=== PATIENT | female | born 1960 | race African-American/Black ===

== ENCOUNTER 2017-01-23 19:16 | Emergency (ER) | payer OTHER ==
[2017-01-23 19:32] VITALS: TEMP 98.3; BMI 38.1
[2017-01-23] MEDS ORDERED: SODIUM CHLORIDE 1,000 ML IV STA (20:03)
--- NOTE | 2017-01-23 20:07 | PDOC ---
History of Present Illness - General Chief Complaint: Chest Pain Stated Complaint: CHEST PAIN (PCP SENT) Time Seen by Provider: 01/23/17 19:40 History Source: Patient Exam Limitations: No Limitations - History of Present Illness Initial Comments: 01/23/17 20:04 56yo female patient w/ PmHx: HTN, IDDM, HLD, Stress Incontinence presents to ED c/o CP, irregular heart beat. Patient states she went to Dr. Sharp office for routine exam when she was told she had an irregular heart beat and to go to ER for evaluation. Patient current denies CP, Abd pain, n/v/d, fever, cough, congestion, diff breathing, SOB, or any other complaints at this time. LNMP: Menopause. Presenting Symptoms: Chest Pain, Other (Irregular heart beat.) Timing/Duration: reports: intermittent Severity/Quality: reports: mild Location: denies: substernal, central, epigastric, shoulder, back, abdomen, other Chest Pain Radiation: denies: no radiation, jaw, arms, neck, shoulders, back, sternal notch, epigastric, other Activities at Onset: reports: no specific activity Past History - Travel Traveled outside of the country in the last 30 days: No Close contact w/someone who was outside of country & ill: No - Past Medical History Allergies/Adverse Reactions: Allergies Allergy/AdvReac Type Severity Reaction Status Date / Time duloxetine HCl AdvReac Mild dizzy Verified 01/23/17 19:32 [From Cymbalta] gabapentin AdvReac Mild edema Verified 01/23/17 19:32 shellfish derived AdvReac Mild Swelling Verified 01/23/17 19:32 Home Medications: Ambulatory Orders Albuterol Sulfate Inhaler - [Ventolin HFA Inhaler -] 1 - 2 inh IH Q4H PRN #0 inh 04/02/14 Atorvastatin Ca [Lipitor -] 10 mg PO HS 03/03/15 Calcium Carbonate/Vitamin D3 [Calcium + Vitamin D Tablet] 1 each PO DAILY Cyclobenzaprine HCl [Flexeril -] 10 mg PO TID PRN 03/03/15 Metformin HCl 500 mg PO DAILY 03/03/15 Insulin Lispro [Humalog] 10 unit SQ AC 09/01/15 Diclofenac Sodium [Voltaren] 100 gm TP TID PRN 11/01/15 Lisinopril [Prinivil] 20 mg PO DAILY 08/24/16 Mirtazapine [Remeron -] 7.5 mg PO HS 08/24/16 Oxybutynin Chloride [Oxybutynin Chloride ER] 10 mg PO DAILY 08/24/16 Insulin Glargine,Hum.rec.anlog [Basaglar Kwikpen U-100] 45 unit SQ HS 11/23/16 Oxycodone HCl/Acetaminophen [Percocet 10-325 mg Tablet] 1 each PO TID PRN #70 tablet MDD 3 01/22/17 Anemia: No Asthma: Yes Cancer: No Cardiac Disorders: No CVA: No COPD: No CHF: No Dementia: No Diabetes: Yes (IDDM with neuropathy) GI Disorders: No Disorders: No HTN: Yes Hypercholesterolemia: Yes Liver Disease: No Seizures: No Thyroid Disease: No - Surgical History Abdominal Surgery: (ECTOPIC) Appendectomy: No Cardiac Surgery: No Cholecystectomy: No Lung Surgery: No Neurologic Surgery: No Orthopedic Surgery: Yes (fx r knee, l elbow sx, orif l wrist, orif r ankle) - Immunization History TDAP Vaccination: No Immunization Up to Date: No - Suicide/Smoking/Psychosocial Hx Smoking Status: No Smoking History: Never smoked Have you smoked in the past 12 months: No Number of Cigarettes Smoked Daily: 0 If you are a former smoker, when did you quit?: 2006 Hx Alcohol Use: No Drug/Substance Use Hx: No Substance Use Type: None Hx Substance Use Treatment: No Cardiac Specific PMH - Complaint Specific PMHX Pacemaker: No Review of Systems - Review of Systems Able to Perform ROS?: Yes Is the patient limited Turkish proficient: No Constitutional: No: Chills, Fever Respiratory: No: Cough, Shortness of Breath, Wheezing Cardiac (ROS): Yes: Irregular Heart Rate. No: Chest Pain, Lightheadedness, Palpitations, Syncope, Chest Tightness ABD/GI: No: Diarrhea, Nausea, Poor Appetite, Poor Fluid Intake, Vomiting, Abdominal cramping : No: Dysuria Musculoskeletal: No: Back Pain Integumentary: No: Erythema, Rash, Sweating Neurological: No: Headache, Seizure, Ataxia, Dizziness All Other Systems: Reviewed and Negative *Physical Exam - Vital Signs Last Vital Signs Temp Pulse Resp BP Pulse Ox 98.3 F 48 L 16 138/74 100 01/23/17 19:30 01/24/17 00:13 01/24/17 00:13 01/24/17 00:13 01/24/17 00:13 - Physical Exam General Appearance: Yes: Nourished, Appropriately Dressed. No: Apparent Distress, Mild Distress, Moderate Distress, Severe Distress HEENT: positive: EOMI, SAVANNAH, Normal ENT Inspection, Normal Voice, Symmetrical, TMs Normal, Pharynx Normal. negative: Pharyngeal Erythema, Tonsillar Exudate, Tonsillar Erythema, Nasal Congestion, Rhinorrhea, TM Bulging, TM Dull, TM Erythema Neck: positive: Trachea midline, Normal Thyroid, Supple. negative: Rigid, Stridor, Lymphadenopathy (R), Lymphadenopathy (L) Respiratory/Chest: positive: Lungs Clear, Normal Breath Sounds. negative: Chest Tender, Respiratory Distress, Accessory Muscle Use, Labored Respiration, Rapid RR Cardiovascular: positive: Bradycardia Gastrointestinal/Abdominal: positive: Normal Bowel Sounds, Soft. negative: Distended, Guarding, Rebound, Tenderness Musculoskeletal: positive: Normal Inspection. negative: CVA Tenderness Extremity: positive: Normal Capillary Refill, Normal Inspection, Normal Range of Motion. negative: Pedal Edema, Swelling, Calf Tenderness, Erythema, Inflammation Integumentary: positive: Normal Color, Dry, Warm Neurologic: positive: salary and wage administrator II-XII NML intact, Fully Oriented, Alert, Normal Mood/ Affect, Normal Response, Motor Strength 5/5 Heart Score/ECG Review - ECG Impressions Normal ECG: Yes Non-specific ST Elevation: No Ischemic Changes: No Bradycardia: Yes Torsades thalia Pointes: No WPW: No ED Treatment Course - LABORATORY CBC & Chemistry Diagram: 01/23/17 20:22 01/23/17 20:22 - ADDITIONAL ORDERS Additional order review: Laboratory Results 01/23/17 01/23/17 01/23/17 23:20 20:51 20:22 Sodium 145 Potassium 4.0 Chloride 110 H Carbon Dioxide 27 Anion Gap 8 BUN 13 Creatinine 0.9 Creat Clearance w eGFR > 60 Random Glucose 132 H D Calcium 9.3 Magnesium 2.1 Total Bilirubin 0.3 D AST 20 D ALT 25 Alkaline Phosphatase 72 Creatine Kinase 262 H Creatine Kinase Index 1.1 CK-MB (CK-2) 3.129 Troponin I < 0.02 Total Protein 6.8 Albumin 3.4 TSH 1.64 D Serum , Qual Negative Urine Color Ltyellow Urine Appearance Slcloudy Urine pH 5.0 Urine Protein Negative Urine Glucose (UA) Negative Urine Ketones Negative Urine Blood Negative Urine Nitrite Negative Urine Bilirubin Negative Urine Urobilinogen Negative Urine RBC 3/hpf Urine WBC 4/hpf Ur Epithelial Cells Moderate Urine HCG, Qual Cancelled 01/23/17 20:22 RBC 4.10 MCV 90.1 MCHC 32.7 RDW 14.9 MPV 9.6 Neutrophils % 55.2 Lymphocytes % 33.7 Monocytes % 7.2 Eosinophils % 3.0 Basophils % 0.9 - RADIOLOGY Radiology Studies Ordered: Category Date Time Status CHEST PA & LAT [RAD] Stat Radiology 01/23/17 20:03 Completed - Medications Given in the ED: ED Medications Discontinued Medications Generic Name Dose Route Start Last Admin Trade Name Freq PRN Reason Stop Dose Admin Sodium Chloride 1,000 mls @ 1,000 mls/hr 01/23/17 20:03 01/23/17 20:22 Normal Saline - IV 01/23/17 21:02 1,000 mls/hr ASDIR STA Administration Penicillin G Benzathine 1,200,000 unit 01/23/17 23:59 01/24/17 00:13 Bicillin L-A - IM 01/24/17 00:00 1,200,000 unit ONCE ONE Administration Medical Decision Making - Medical Decision Making 01/23/17 22:[address] Sharp, result of labs and radiology testing discussed. Patient states she wanted to go home and will follow up with her Art Manager tomorrow morning. Patient is stable, she denies CP, SOB, Diff breathing, or any other complaints at this time. 01/23/17 22:[address] Hernandez who stated patient does not need to be admitted. Patient needs outpatient holter monitor. *DC/Admit/Observation/Transfer Diagnosis at time of Disposition: Bronchitis, Atypical chest pain - Discharge Dispostion Disposition: HOME Condition at time of disposition: Stable Admit: No - Referrals Referrals: Faisal Mcqueen MD [Primary Care Provider] - - Patient Instructions Printed Discharge Instructions: DI for Atypical Chest Pain Additional Instructions: Follow up with your cardiology office tomorrow to schedule Holter Monitor application. Return if symptoms worsen or any concerns for further evaluation. Drink plenty fluids. If symptoms worsen, return for further evaluation. Print Language: TUVALUAN
[2017-01-23 20:25] LABS: BASOPHIL 0.9 % (0-2.0); MCH 29.5 pg (25.7-33.7); MCHC 32.7 g/dl (32.0-36.0); MEAN CELL VOLUME 90.1 fl (80-96); MEAN PLT VOLUME 9.6 fl (7.5-11.1); NEUTROPHILS 55.2 % (42.8-82.8); PLATELET COUNT 159 K/MM3 (134-434); RDW 14.9 % (11.6-15.6); WHITE BLOOD COUNT 5.1 K/mm3 (4.0-10.0)
[2017-01-23 21:01] LABS: ALBUMIN 3.4 g/dl (3.4-5.0); ANION GAP 8 (8-16); BILIRUBIN,TOTAL 0.3 mg/dL (0.2-1.0); CALCIUM 9.3 mg/dL (8.5-10.1); CO2 27 mmol/L (21-32); CREATININE 0.9 mg/dL (0.55-1.02); GLUCOSE,RANDOM 132 mg/dL (74-106); MAGNESIUM 2.1 mg/dL (1.8-2.4); SGOT/AST 20 U/L (15-37); SGPT/ALT 25 U/L (12-78); TOT PROT 6.8 g/dl (6.4-8.2)
[2017-01-23 21:10] LABS: ALK PHOS 72 U/L (45-117); CPK 262 IU/L (26-192); THYROID STIMULATING HORMONE 1.64 uIU/ml (0.358-3.74); TROPONIN I < 0.02 ng/ml (0.00-0.05)
--- NOTE | 2017-01-23 23:13 | PDOC ---
*Physical Exam - Vital Signs Last Vital Signs Temp Pulse Resp BP Pulse Ox 98.3 F 52 L 18 158/85 99 01/23/17 19:30 01/23/17 19:30 01/23/17 19:30 01/23/17 19:30 01/23/17 19:30 - Physical Exam Comments: 01/23/17 23:13 The patient was examined by [CORINNE Regalado] under my direct supervision. I personally evaluated the patient. I concur with the above findings and the plan of care. ED Treatment Course - LABORATORY CBC & Chemistry Diagram: 01/23/17 20:22 01/23/17 20:22 - ADDITIONAL ORDERS Additional order review: Laboratory Results 01/23/17 01/23/17 20:51 20:22 Sodium 145 Potassium 4.0 Chloride 110 H Carbon Dioxide 27 Anion Gap 8 BUN 13 Creatinine 0.9 Creat Clearance w eGFR > 60 Random Glucose 132 H D Calcium 9.3 Magnesium 2.1 Total Bilirubin 0.3 D AST 20 D ALT 25 Alkaline Phosphatase 72 Creatine Kinase 262 H Creatine Kinase Index 1.1 CK-MB (CK-2) 3.129 Troponin I < 0.02 Total Protein 6.8 Albumin 3.4 TSH 1.64 D Serum , Qual Negative 01/23/17 20:22 RBC 4.10 MCV 90.1 MCHC 32.7 RDW 14.9 MPV 9.6 Neutrophils % 55.2 Lymphocytes % 33.7 Monocytes % 7.2 Eosinophils % 3.0 Basophils % 0.9 - Medications Given in the ED: ED Medications Discontinued Medications Generic Name Dose Route Start Last Admin Trade Name Freq PRN Reason Stop Dose Admin Sodium Chloride 1,000 mls @ 1,000 mls/hr 01/23/17 20:03 01/23/17 20:22 Normal Saline - IV 01/23/17 21:02 1,000 mls/hr ASDIR STA Administration *DC/Admit/Observation/Transfer - Referrals Referrals: Faisal Mcqueen MD [Primary Care Provider] - - Patient Instructions - Post Discharge Activity
[2017-01-23 23:31] LABS: URINE APPEARANCE SLCLOUDY; URINE BILIRUBIN NEGATIVE (NEGATIVE); URINE BLOOD NEGATIVE (NEGATIVE); URINE COLOR LTYELLOW; URINE GLUCOSE (UA) NEGATIVE (NEGATIVE); URINE KETONE NEGATIVE (NEGATIVE); URINE NITRITE NEGATIVE (NEGATIVE); URINE PROTEIN NEGATIVE (NEGATIVE); URINE UROBILINOGEN NEGATIVE mg/dL (0.2-1.0)
[2017-01-23 23:35] LABS: URINE LEUK ESTERASE 1+ (NEGATIVE)
[2017-01-23 23:36] LABS: URINE RBC 3/HPF /hpf (0-3); URINE WBC 4/HPF /hpf (3-5)
[2017-01-23] MEDS ORDERED: PENICILLIN G BENZATHINE 1,200,000 UNIT/2 ML PFS IM ONE (23:59)
[2017-01-24 00:14] VITALS: BP 138/74; PULSE 48
--- NOTE | 2017-01-24 10:44 | EKG ---
Test Reason : Blood Pressure : / mmHG Vent. Rate : 051 BPM Atrial Rate : 051 BPM P-R Int : 178 ms QRS Dur : 086 ms QT Int : 438 ms P-R-T Axes : 026 -12 000 degrees QTc Int : 403 ms SINUS BRADYCARDIA MODERATE VOLTAGE CRITERIA FOR LVH, MAY BE NORMAL VARIANT BORDERLINE ECG WHEN COMPARED WITH ECG OF 15-DEC-2014 23:03, NONSPECIFIC T WAVE ABNORMALITY NOW EVIDENT IN ANTERIOR LEADS Confirmed by RADHA ROTHMAN, RENITA ([id number]) on 01/24/2017 10:44:18 AM Referred By: Confirmed By:RENITA GARCIA MD
== END 2017-01-24 00:38 | disposition home or self-care (01) ==
LOC: JER 19:16
PROC: 3E0337Z Introduction of Electrolytic and Water Balance Substance into Peripheral Vein, Percutaneous Approach (ICD-10-PCS; principal; 2017-01-23)
PROC: 3E02329 Introduction of Other Anti-infective into Muscle, Percutaneous Approach (ICD-10-PCS; 2017-01-23)
DX: J40 Bronchitis, not specified as acute or chronic (principal); R07.89 Other chest pain; I10 Essential (primary) hypertension; E78.00 Pure hypercholesterolemia, unspecified; E11.42 Type 2 diabetes mellitus with diabetic polyneuropathy; Z79.4 Long term (current) use of insulin; Z79.84 Long term (current) use of oral hypoglycemic drugs
CPT/HCPCS: 36415; 71020-TC; 80053; 81003; 81015; 82553; 83735; 84443; 84484; 84703; 85025; 93005; 93010; 99284-25

== ENCOUNTER 2017-06-25 19:22 | Inpatient (IN) | payer OTHER ==
--- NOTE | 2017-06-25 19:31 | PDOC ---
Rapid Medical Evaluation Time Seen by Provider: 06/25/17 19:24 Medical Evaluation: Allergies Allergy/AdvReac Type Severity Reaction Status Date / Time duloxetine HCl AdvReac Mild dizzy Verified 01/23/17 19:32 [From Cymbalta] gabapentin AdvReac Mild edema Verified 01/23/17 19:32 shellfish derived AdvReac Mild Swelling Verified 01/23/17 19:32 06/25/17 19:24 I have performed a brief in-person evaluation of this patient. The patient presents with a chief complaint of: saw dr hough today for pneumonia , leg swelling, US results + for DVTs, hx of PEs, s/p IVC, taken off Coumadin last year, denies SOB/CP Pertinent physical exam findings: lungs ctab I have ordered the following: labs, ekg The patient will proceed to the ED for further evaluation. Discharge Disposition - Diagnosis DVT (deep venous thrombosis) - Referrals - Patient Instructions - Post Discharge Activity
--- NOTE | 2017-06-25 19:39 | PDOC ---
History of Present Illness - General Exam Limitations: No Limitations - History of Present Illness Initial Comments: 06/25/17 20:02 The patient is a 56 year old female, with a significant past medical history of hypertension, diabetes mellitus, hypercholesterolemia, who presents to the emergency department for evaluation of DVT to the right leg found on ultrasound by her post hole digger Dr. Romeo. The patient states she has noticed her right leg has been appearing more swollen than the left leg and reports she has a history of DVT's in the past. The patient also states she was recently treated for pneumonia and had some mild shortness of breath, however, is not having any now. The patient reports she used to take Coumadin but was taken off approx. one year ago. She denies recent fevers, chills, headache or dizziness. She denies recent nausea, vomit, diarrhea or constipation. She denies recent dysuria, frequency, urgency or hematuria. She denies recent chest pain or shortness of breath. Allergies: duloxteine HCL, gabapentin, shellfish derived Primary Care Physician: Dr. Faisal Mcqueen Clockmaker: Dr. Romeo <Chucho Laboy - Last Filed: 06/25/17 21:59> - General History Source: Patient <Myles Chapman - Last Filed: 06/26/17 19:17> - General Chief Complaint: Revisit,Radiology Variance Stated Complaint: PCP SENT Time Seen by Provider: 06/25/17 19:24 Past History <Chucho Laboy - Last Filed: 06/25/17 21:59> - Past Medical History Anemia: No Asthma: Yes Cancer: No Cardiac Disorders: No CVA: No COPD: No CHF: No Dementia: No Diabetes: Yes (IDDM with neuropathy) GI Disorders: No Disorders: No HTN: Yes Hypercholesterolemia: Yes Liver Disease: No Seizures: No Thyroid Disease: No - Surgical History Abdominal Surgery: (ECTOPIC) Appendectomy: No Cardiac Surgery: No Cholecystectomy: No Lung Surgery: No Neurologic Surgery: No Orthopedic Surgery: Yes (fx r knee, l elbow sx, orif l wrist, orif r ankle) - Immunization History TDAP Vaccination: No Immunization Up to Date: No - Suicide/Smoking/Psychosocial Hx Smoking Status: No Smoking History: Never smoked Have you smoked in the past 12 months: No Number of Cigarettes Smoked Daily: 0 If you are a former smoker, when did you quit?: 2006 Information on smoking cessation initiated: No Hx Alcohol Use: No Drug/Substance Use Hx: No Substance Use Type: None Hx Substance Use Treatment: No <Myles Chapman - Last Filed: 06/26/17 19:17> - Past Medical History Allergies/Adverse Reactions: Allergies Allergy/AdvReac Type Severity Reaction Status Date / Time duloxetine HCl AdvReac Mild dizzy Verified 06/25/17 19:26 [From Cymbalta] gabapentin AdvReac Mild edema Verified 06/25/17 19:26 shellfish derived AdvReac Mild Swelling Verified 06/25/17 19:26 Home Medications: Ambulatory Orders Albuterol Sulfate Inhaler - [Ventolin HFA Inhaler -] 1 - 2 inh IH Q4H PRN #0 inh 04/02/14 Cyclobenzaprine HCl [Flexeril -] 10 mg PO TID PRN 03/03/15 Metformin HCl 500 mg PO DAILY 03/03/15 Diclofenac Sodium [Voltaren] 100 gm TP TID PRN 11/01/15 Lisinopril [Prinivil] 20 mg PO DAILY 08/24/16 Mirtazapine [Remeron -] 7.5 mg PO HS 08/24/16 Oxybutynin Chloride [Oxybutynin Chloride ER] 10 mg PO DAILY 08/24/16 Insulin Glargine,Hum.rec.anlog [Basaglar Kwikpen U-100] 50 unit SQ HS 11/23/16 Oxycodone HCl/Acetaminophen [Percocet 10-325 mg Tablet] 1 each PO TID PRN #60 tab MDD 3 06/13/17 Atorvastatin Ca [Lipitor] 40 mg PO HS 06/26/17 Calcium Carbonate/Vitamin D3 [Calcium 600-Vit D3 400 Tablet] 1 each PO DAILY Fenofibrate Nanocrystallized [Fenofibrate] 145 mg PO DAILY 06/26/17 Guaifenesin Dm [Robitussin Dm -] 10 ml PO Q4H PRN 06/26/17 Insulin Aspart [Novolog] 0 unit SQ ASDIR 06/26/17 Omeprazole 40 mg PO DAILY 06/26/17 Review of Systems - Review of Systems Comments:: 06/25/17 20:04 CONSTITUTIONAL: Absent: fever, no chills, no fatigue EYES: Absent: visual changes ENT: Absent: ear pain, no sore throat CARDIOVASCULAR: Present: (+) Right leg swelling. Absent: chest pain, no palpitations RESPIRATORY: Absent: cough, no SOB GI: Absent: abdominal pain, no nausea, no vomiting, no constipation, no diarrhea GENITOURINARY: Absent: dysuria, no frequency, no hematuria MUSKULOSKELETAL: Absent: back pain, no arthralgia, no myalgia SKIN: Absent: rash NEURO: Absent: headache <Chucho Laboy - Last Filed: 06/25/17 21:59> *Physical Exam - Vital Signs Last Vital Signs Temp Pulse Resp BP Pulse Ox 98.4 F 77 20 155/94 100 06/25/17 19:26 06/25/17 19:26 06/25/17 19:26 06/25/17 19:26 06/25/17 19:26 - Physical Exam Comments: 06/25/17 20:05 GENERAL: Well-appearing, well-nourished. No apparent distress. HEENT: Normocephalic, atraumatic. PERRL, EOM intact. CARDIOVASCULAR: Normal S1, S2. Regular rate and rhythm. PULMONARY: Clear to auscultation bilaterally. ABDOMEN: Soft, non-distended, non-tender. EXTREMITIES: (+) Right leg is slightly more swollen than left around the calf region. No calf tenderness, cords or erythema. Normal ROM in all four extremities. No gross deformities. SKIN: Warm, dry. No rash NEUROLOGICAL: No focal neurological deficits. <Chucho Laboy - Last Filed: 06/25/17 21:59> - Vital Signs Last Vital Signs Temp Pulse Resp BP Pulse Ox 98.4 F 77 20 155/94 100 06/25/17 19:26 06/25/17 19:26 06/25/17 19:26 06/25/17 19:26 06/25/17 19:26 <Myles Chapman - Last Filed: 06/26/17 19:17> Heart Score/ECG Review #1 06/25/17 22:00 Normal sinus rhythm at 64 bpm. QT/QTc 414/427 ms EKG reviewed by Dr. Chapman <Chucho Laboy - Last Filed: 06/25/17 21:59> ED Treatment Course - LABORATORY CBC & Chemistry Diagram: 06/25/17 21:15 06/25/17 21:15 - RADIOLOGY Radiograph Interpretation: 06/25/17 21:22 EXAM#: TYPE/EXAM: RESULT: [id number] US/DUPLEX VASCUL US-2LEGS INDICATION: History of deep vein thrombosis and IVC filter. Clinical suspicion for lower extremity deep vein thrombosis. TECHNIQUE: Real-time grayscale, color Doppler and spectral Doppler sonogram of the deep veins in the right and left lower extremities was performed by the technologist utilizing compression and augmentation maneuvers. The common femoral veins including the junctions with the greater saphenous veins, the femoral, profunda femoral, popliteal and posterior tibial veins were interrogated in the right and left lower extremities. Images are submitted for review. COMPARISON: 07/11/2016 left lower extremity duplex and 12/15/2014 bilateral lower extremity duplex. FINDINGS: Left - There is no evidence of deep vein thrombosis in the left lower extremity. The interrogated veins, as listed above, demonstrate compressibility and flow related Doppler signal. Right - There is incomplete compressibility of the right popliteal vein with eccentric echogenic thrombus, likely chronic. There is flow related Doppler signal in the right popliteal vein. There is also thrombosis of the right lesser saphenous vein, with no definite flow. Otherwise, no evidence of deep vein thrombosis in the right common femoral, femoral or profunda femoral veins. IMPRESSION: 1. Right popliteal vein thrombus as described above is likely chronic. Occlusive thrombosis of the right lesser saphenous vein. 2. No evidence of left lower extremity deep vein thrombosis, as above. Reported By: Ian Christianson DO 06/25/17 21:23 EXAM#: TYPE/EXAM: RESULT: [id number] RAD/CHEST PA LAT HISTORY PROVIDED: Rule out infiltrate PA and lateral projections of the chest are submitted. The heart size is within normal limits. The lung evans are free of pulmonary infiltrates or pleural effusions. There is tortuosity and calcification of the thoracic aorta and degenerative changes of the thoracic spine. IMPRESSION: No acute disease. Reported By: Chivo Piper MD <Chucho Laboy - Last Filed: 06/25/17 21:59> - LABORATORY CBC & Chemistry Diagram: 06/25/17 21:15 06/25/17 23:49 <Myles Chapman - Last Filed: 06/26/17 19:17> Medical Decision Making - Medical Decision Making 06/25/17 20:[address] Plunkett at 20:34. Pending call back. Second call placed to Dr. Plunkett at 21:10. Case discussed. <Chucho Laboy - Last Filed: 06/25/17 21:59> - Medical Decision Making 06/26/17 19:17 Dr. Chapman: The scribe's documentation has been prepared under my direction and personally reviewed by me in its entirery. I confirm that the note above accurately reflects all work, treatment, procedures, and medical decision making performed by me. <Myles Chapman - Last Filed: 06/26/17 19:17> *DC/Admit/Observation/Transfer - Attestations Scribe Attestion: 06/25/17 20:07 Documentation prepared by Chucho Laboy, acting as medical technical writer for Myles Chapman MD. <Chucho Laboy - Last Filed: 06/25/17 21:59> - Discharge Dispostion Admit: Yes <Myles Chapman - Last Filed: 06/26/17 19:17> Diagnosis at time of Disposition: DVT (deep venous thrombosis) Qualifiers: DVT location: lower extremity Chronicity: unspecified Laterality: right - Discharge Dispostion Condition at time of disposition: Stable
[2017-06-25 21:27] LABS: EOS % 2.1 % (0-4.5); HEMATOCRIT 39.9 % (32.4-45.2); LYMPH % 27.5 % (8-40); MCH 29.4 pg (25.7-33.7); MCHC 32.4 g/dl (32.0-36.0); MEAN CELL VOLUME 90.5 fl (80-96); MEAN PLT VOLUME 10.8 fl (7.5-11.1); MONO % 7.1 % (3.8-10.2); NEUT % 62.3 % (42.8-82.8); PLATELET COUNT 150 K/MM3 (134-434); RBC 4.41 M/mm3 (3.60-5.2); RDW 14.7 % (11.6-15.6); WHITE BLOOD COUNT 6.5 K/mm3 (4.0-10.0)
[2017-06-25 21:29] LABS: URINE APPEARANCE CLEAR; URINE BILIRUBIN NEGATIVE (NEGATIVE); URINE BLOOD NEGATIVE (NEGATIVE); URINE COLOR YELLOW; URINE GLUCOSE (UA) 2+ (NEGATIVE); URINE KETONE NEGATIVE (NEGATIVE); URINE LEUK ESTERASE NEGATIVE (NEGATIVE); URINE NITRITE POSITIVE (NEGATIVE); URINE PROTEIN NEGATIVE (NEGATIVE); URINE UROBILINOGEN NEGATIVE mg/dL (0.2-1.0)
[2017-06-25 21:32] LABS: EPI CELLS FEW /HPF (FEW); URINE BACTERIA FEW /hpf (NONE SEEN)
[2017-06-25] MEDS ORDERED: ENOXAPARIN NA (PORCINE) 100 MG/1 ML DISP.SYRIN SQ ONE ×2 (21:39→23:19)
[2017-06-25 22:07] LABS: INR 1.26 (0.82-1.09); PROTHROMBIN TIME (PATIENT) 14.2 SEC (9.98-11.88)
[2017-06-25 22:10] LABS: ACTIVATED PTT 27.4 SECONDS (26.9-34.4)
[2017-06-26 00:20] LABS: ALBUMIN 3.1 g/dl (3.4-5.0); ALK PHOS 83 U/L (45-117); ANION GAP 11 (8-16); BILIRUBIN,TOTAL 0.3 mg/dL (0.2-1.0); BLOOD UREA NITROGEN 13 mg/dL (7-18); CHLORIDE 104 mmol/L (98-107); CO2 26 mmol/L (21-32); CREATININE 0.9 mg/dL (0.55-1.02); POTASSIUM 3.7 mmol/L (3.5-5.1); SGOT/AST 15 U/L (15-37); SGPT/ALT 22 U/L (12-78); SODIUM 141 mmol/L (136-145); TOT PROT 6.4 g/dl (6.4-8.2)
[2017-06-26 00:26] LABS: GLUCOSE,RANDOM 313 mg/dL (74-106)
[2017-06-26] MEDS ORDERED: INSULIN REGULAR HUMAN 100 UNITS/ML *VIAL SQ ONE (00:31)
[2017-06-26] MEDS ORDERED: INSULIN REGULAR HUMAN 100 UNITS/ML *VIAL ONE ×2 (00:48→10:20)
[2017-06-26] MEDS ORDERED: SOLIFENACIN SUCCINATE 5 MG TAB (FP) PO SCH (10:00)
[2017-06-26] MEDS: LISINOPRIL 20 MG TABLET (FP) PO SCH (10:18)
[2017-06-26] MEDS: CALCIUM 500MG/VIT-D 200 UNITS COMBO TABLET (FP) PO SCH (10:18)
[2017-06-26] MEDS: ENOXAPARIN NA (PORCINE) 100 MG/1 ML DISP.SYRIN SQ SCH ×3 (10:18→21:44)
[2017-06-26] MEDS: metFORMIN HCL 500 MG TABLET (FP) PO SCH (10:18)
[2017-06-26] MEDS: INSULIN (NOVOLOG) ASPART 100 UNITS/ML 10ML VIAL SQ SCH ×3 (10:28→16:48)
--- NOTE | 2017-06-26 11:06 | EKG ---
Test Reason : Blood Pressure : / mmHG Vent. Rate : 064 BPM Atrial Rate : 064 BPM P-R Int : 164 ms QRS Dur : 084 ms QT Int : 414 ms P-R-T Axes : 030 -20 -03 degrees QTc Int : 427 ms NORMAL SINUS RHYTHM VOLTAGE CRITERIA FOR LEFT VENTRICULAR HYPERTROPHY ABNORMAL ECG WHEN COMPARED WITH ECG OF 23-JAN-2017 19:30, NO SIGNIFICANT CHANGE WAS FOUND Confirmed by CHUCK LOCKWOOD MD ([id number]) on 06/26/2017 11:06:08 AM Referred By: Confirmed By:CHUCK LOCKWOOD MD
[2017-06-26 15:05] VITALS: BMI 38.0
--- NOTE | 2017-06-26 15:22 | HP ---
Admitting History and Physical - Admission History of Present Illness: Pt is a 56 y/o female with PMH significant for HTN, DM and HLD. Pt now presented to the ER bc of DVT to the right leg found on ultrasound by her power wheelchair mechanic Dr. Romeo. The patient states she has noticed her right leg has been appearing more swollen than the left leg and reports she has a history of DVT's in the past. The patient also states she was recently treated for pneumonia and had some mild shortness of breath, however, is not having any now. Pt does have a dry nonproductive cough. The patient reports she used to take Coumadin but was taken off approx. one year ago. - Past Medical History Cardiovascular: Yes: HTN, Hyperlipdemia Pulmonary: Yes: Asthma ...LMP: 07/29/11 Heme/Onc: Yes: Other (DVT) Endocrine: Yes: Diabetes Mellitus - Smoking History Smoking history: Never smoked Have you smoked in the past 12 months: No Aproximately how many cigarettes per day: 0 If you are a former smoker, when did you quit?: 2006 - Alcohol/Substance Use Hx Alcohol Use: No - Social History History of Recent Travel: No Home Medications - Allergies Allergies/Adverse Reactions: Allergies Allergy/AdvReac Type Severity Reaction Status Date / Time duloxetine HCl AdvReac Mild dizzy Verified 06/25/17 19:26 [From Cymbalta] gabapentin AdvReac Mild edema Verified 06/25/17 19:26 shellfish derived AdvReac Mild Swelling Verified 06/25/17 19:26 - Home Medications Home Medications: Ambulatory Orders Albuterol Sulfate Inhaler - [Ventolin HFA Inhaler -] 1 - 2 inh IH Q4H PRN #0 inh 04/02/14 Cyclobenzaprine HCl [Flexeril -] 10 mg PO TID PRN 03/03/15 Metformin HCl 500 mg PO DAILY 03/03/15 Diclofenac Sodium [Voltaren] 100 gm TP TID PRN 11/01/15 Lisinopril [Prinivil] 20 mg PO DAILY 08/24/16 Mirtazapine [Remeron -] 7.5 mg PO HS 08/24/16 Oxybutynin Chloride [Oxybutynin Chloride ER] 10 mg PO DAILY 08/24/16 Insulin Glargine,Hum.rec.anlog [Basaglar Kwikpen U-100] 50 unit SQ HS 11/23/16 Oxycodone HCl/Acetaminophen [Percocet 10-325 mg Tablet] 1 each PO TID PRN #60 tab MDD 3 06/13/17 Atorvastatin Ca [Lipitor] 40 mg PO HS 06/26/17 Calcium Carbonate/Vitamin D3 [Calcium 600-Vit D3 400 Tablet] 1 each PO DAILY Fenofibrate Nanocrystallized [Fenofibrate] 145 mg PO DAILY 06/26/17 Guaifenesin Dm [Robitussin Dm -] 10 ml PO Q4H PRN 06/26/17 Insulin Aspart [Novolog] 0 unit SQ ASDIR 06/26/17 Omeprazole 40 mg PO DAILY 06/26/17 Family Disease History - Family Disease History Family History: Unremarkable Family Disease History: Diabetes: Mother (stroke), Sister, Heart Disease: Father , Mother, Other: Mother, Brother (renal), Daughter (RA) Review of Systems - Review of Systems Constitutional: reports: No Symptoms HENT: reports: No Symptoms Neck: reports: No Symptoms Cardiovascular: reports: No Symptoms Respiratory: reports: Cough Gastrointestinal: reports: No Symptoms Physical Examination Vital Signs: Vital Signs Temperature 98.4 F 06/26/17 11:11 Pulse Rate 58 L 06/26/17 14:44 Respiratory Rate 18 06/26/17 14:44 Blood Pressure 134/76 06/26/17 14:44 O2 Sat by Pulse Oximetry (%) 98 06/26/17 14:44 Constitutional: Yes: Well Nourished HENT: Yes: WNL Neck: Yes: WNL, Supple Cardiovascular: Yes: WNL, Regular Rate and Rhythm Respiratory: Yes: WNL, Regular, CTA Bilaterally Gastrointestinal: Yes: WNL, Normal Bowel Sounds, Soft Extremities: Yes: Other ((+) swelling RLE) Neurological: Yes: WNL, Alert, Oriented ...Motor Strength: WNL Labs: CBC, BMP 06/25/17 21:15 06/25/17 23:49 Problem List - Problems (1) DVT (deep venous thrombosis) Assessment/Plan: Cont lovenox Pt w/ acute on chronic ?DVT Will await heme consult Code(s): I82.409 - ACUTE EMBOLISM AND THOMBOS UNSP DEEP VN UNSP LOWER EXTREMITY Qualifiers: DVT location: lower extremity Chronicity: unspecified Laterality: right (2) Asthma Assessment/Plan: As per pulmonary Cont inhalers Code(s): J45.909 - UNSPECIFIED ASTHMA, UNCOMPLICATED (3) Chronic renal insufficiency, stage III (moderate) Code(s): N18.3 - CHRONIC KIDNEY DISEASE, STAGE 3 (MODERATE) (4) GERD (gastroesophageal reflux disease) Code(s): K21.9 - GASTRO-ESOPHAGEAL REFLUX DISEASE WITHOUT ESOPHAGITIS Qualifiers: Esophagitis presence: without esophagitis Qualified Code(s): K21.9 - Gastro -esophageal reflux disease without esophagitis (5) Diabetes Assessment/Plan: Cont metformin/levemir/novolog Code(s): E11.9 - TYPE 2 DIABETES MELLITUS WITHOUT COMPLICATIONS (6) HTN (hypertension) Assessment/Plan: Cont lisinopril Code(s): I10 - ESSENTIAL (PRIMARY) HYPERTENSION (7) HLD (hyperlipidemia) Assessment/Plan: Cont lipitor Code(s): E78.5 - HYPERLIPIDEMIA, UNSPECIFIED
--- NOTE | 2017-06-26 15:58 | PN ---
Progress Note (short form) - Note Progress Note: PULMONARY CONSULTATION DICTATED 06/26/17 IMP RLE DVT LIKELY CHRONIC H/O DVT/PE UNPROVOKED S/P IVC FILTER ASTHMA HTN IDDM PLAN LOVENOX INHALED BRONCHODILATORS O2 PRN HEME EVALUATION VASCULAR CONSULT DR HOPSON Problem List - Problems (1) DVT (deep venous thrombosis) Code(s): I82.409 - ACUTE EMBOLISM AND THOMBOS UNSP DEEP VN UNSP LOWER EXTREMITY Qualifiers: DVT location: lower extremity Chronicity: unspecified Laterality: right (2) Bronchitis Code(s): J40 - BRONCHITIS, NOT SPECIFIED ACUTE OR CHRONIC (3) Neuropathy due to type 2 diabetes mellitus Code(s): E11.40 - TYPE 2 DIABETES MELLITUS WITH DIABETIC NEUROPATHY, UNSP (4) Obesity (BMI 30-39.9) Code(s): E66.9 - OBESITY, UNSPECIFIED (5) Asthma Code(s): J45.909 - UNSPECIFIED ASTHMA, UNCOMPLICATED (6) Diabetes 1.5, managed as type 1 Code(s): E10.9 - TYPE 1 DIABETES MELLITUS WITHOUT COMPLICATIONS
[2017-06-26] MEDS ORDERED: ALBUTEROL SO4 0.083% IH SOL 2.5 MG/3 ML VIAL.NEB. NEB PRN (15:59)
[2017-06-26] MEDS ORDERED: INSULIN (NOVOLOG) ASPART 100 UNITS/ML 10ML VIAL ONE (17:01)
[2017-06-26] MEDS ORDERED: PT OWN MED DRAWER 7, Y5N ONE (17:51)
[2017-06-26] MEDS: TIOTROPIUM BROMIDE 18 MCG/INH (DEVICE W/ 5 CAPSULES) IH SCH (18:09)
[2017-06-26] MEDS: SOLIFENACIN SUCCINATE 5 MG TAB (FP) PO SCH (18:09)
--- NOTE | 2017-06-26 18:36 | PN ---
Progress Note (short form) - Note Progress Note: Hematology Note: Patient seen and examined. admitted after she was found to have an US finding positive for chronic DVT. she was recently treated for PNA. She feels no SOB, chest pain, palpitations, cough. She does endorse varicose veins bilateral LE. No bleeding has h/o falls. O/E: General: NAD HEENT: NCAT Cor: RRR Lungs: CTA b/l Abd: soft NT ND Extremities: +varicosities, chronic LE changes LE: No CCE Neuro:AAOX3 Last Vital Signs Temp Pulse Resp BP Pulse Ox 98.7 F 65 18 130/74 98 06/26/17 16:59 06/26/17 16:59 06/26/17 16:59 06/26/17 16:59 06/26/17 16:52 CBC, BMP 06/25/17 21:15 06/25/17 23:49 Current Medications Generic Name Dose Route Start Last Admin Trade Name Freq PRN Reason Stop Dose Admin Albuterol Sulfate 1 amp 06/26/17 15:59 Ventolin 0.083% Nebulizer Soln - NEB Q4H PRN SHORT OF BREATH/WHEEZING Atorvastatin Calcium 10 mg 06/26/17 22:00 Lipitor - PO HS [facility] Budesonide/Formoterol Fumarate 2 puff 06/26/17 22:00 Symbicort 160/4.5mcg - IH BID [facility] Calcium Carbonate/Cholecalciferol 1 tab 06/26/17 10:00 06/26/17 10:18 Os-Ray 500+D - PO 1 tab DAILY [facility] Administration Enoxaparin Sodium 100 mg 06/26/17 09:15 06/26/17 10:29 Lovenox - SQ Not Given BID [facility] Insulin Aspart 10 units 06/26/17 09:15 06/26/17 16:48 Novolog Vial SQ 10 units TIDAC [facility] Administration Insulin Detemir 50 units 06/26/17 22:00 Levemir Vial SQ HS [facility] Lisinopril 20 mg 06/26/17 10:00 06/26/17 10:18 Prinivil PO 20 mg DAILY [facility] Administration Metformin HCl 500 mg 06/26/17 09:30 06/26/17 10:18 Glucophage - PO 500 mg DAILY@0700 [facility] Administration Mirtazapine 7.5 mg 06/26/17 22:00 Remeron - PO HS [facility] Solifenacin 5 mg 06/26/17 16:30 06/26/17 18:09 Vesicare - PO 5 mg DAILY [facility] Administration Tiotropium Daniel 1 puff 06/26/17 16:00 06/26/17 18:09 Spiriva - IH 1 puff DAILY [facility] Administration Chronic DVT : h/o IVC filter h/o Prior DVT/PE off of AC after a detailed discussion of pros/cons of continued AC in 2017, elected to stop with close monitoring and also she was having frequent falls at that time. will compare prior US will d.w vascular/radiology chronicity/acuity of the thromboses.
[2017-06-26] MEDS: ATORVASTATIN CA 10 MG TABLET (FP) PO SCH (21:44)
[2017-06-26] MEDS: MIRTAZAPINE 15 MG TABLET (FP) PO SCH (21:44)
[2017-06-26] MEDS: INSULIN DETEMIR 100 UNITS/ML MDV SQ SCH (21:45)
[2017-06-26] MEDS: BUDESONIDE/FORMETEROL FUMARATE 160/4.5 mcg INHALER IH SCH (22:50)
--- NOTE | 2017-06-26 23:48 | CONS ---
DATE OF CONSULTATION: 06/26/2017 REFERRING PHYSICIAN: Janna Plunkett MD The patient is a 56-year-old Black female, known to me from previous office visits as well as hospitalizations, with past medical history of hypertension, diabetes, hypercholesterolemia, asthma, history of DVT, PE in the past that was unprovoked and status post IVC filter, was on anticoagulation until a couple of years ago when it was discontinued secondary to recurrent falls, admitted to [facility] with right leg swelling and erythema. The patient presented to my office yesterday with the complaint of cough, chest congestion which has been going on for approximately 7-10 days. She went to [facility] ER and was treated with antibiotics as well as short course of steroids, which offered some improvement. She presented to my office yesterday with increasing shortness of breath and mild chest congestion. At the time of the physical, she was noted to have increasing swelling and tenderness of the right lower extremity. She was advised to go to [facility] for an ultrasound duplex. The duplex was performed, which revealed evidence of a right popliteal thrombus, likely chronic, and occlusive thrombus in the right lesser saphenous vein. She was advised to call Dr. Mary and was advised to go to the emergency room. Patient denies any chest pain, nausea, hemoptysis. Denies any fevers, chills. Denies any chest pain. She is a nonsmoker. There is no history of occupational exposure to chemicals or fumes. There is no history of recent travel. PAST MEDICAL HISTORY: DVT, PE. Of note, the workup was negative for thrombophilia. Asthma, hypercholesterolemia, diabetes, and hypertension. SOCIAL HISTORY: Nonsmoker. No occupational exposures. REVIEW OF SYSTEMS: Positive for cough, chest congestion. No fever. No chills. No nausea. No vomiting. Positive right lower extremity pain and discomfort. CURRENT MEDICATIONS: Include oxybutynin, Prinivil, Lovenox, Remeron, Glucophage, Lipitor, NovoLog, and Os-Ray. PHYSICAL EXAMINATION: General: The patient is a well-developed, well-nourished female, awake, alert, in no acute distress. Vital Signs: She is currently afebrile. Blood pressure is 134/76, respiratory rate is 18, O2 saturation is 98% on room air. HEENT: Examination is normocephalic, atraumatic. Neck: Supple. Heart: Regular. S1, S2. Chest: Scattered bilateral rhonchi. Abdomen: Soft. Bowel sounds are positive. Extremities: There is swelling to the right lower extremity, mild tenderness. DIAGNOSTIC DATA: Laboratory: WBC 6.5, hemoglobin 13, hematocrit 39.9, platelet count of 150,000. INR is 1.26, BUN 13, creatinine 0.9. Chest x-ray revealed no acute infiltrates and/or effusions. IMPRESSION: 1. Right lower extremity deep vein thrombosis, likely chronic. 2. History of deep vein thrombosis and pulmonary embolus, unprovoked, status post inferior vena cava filter. 3. Asthma exacerbation. 4. Hypertension. 5. Diabetes. PLAN: Inhaled bronchodilators. O2. Continue Lovenox. Obtain vascular consultation as well as hematology consultation. Antitussives. BEATRICE HOPSON M.D. [id number]
[2017-06-27] MEDS: metFORMIN HCL 500 MG TABLET (FP) PO SCH (06:22)
[2017-06-27] MEDS: INSULIN (NOVOLOG) ASPART 100 UNITS/ML 10ML VIAL SQ SCH ×3 (06:23→16:44)
[2017-06-27] MEDS: TIOTROPIUM BROMIDE 18 MCG/INH (DEVICE W/ 5 CAPSULES) IH SCH (09:21)
[2017-06-27] MEDS: CALCIUM 500MG/VIT-D 200 UNITS COMBO TABLET (FP) PO SCH (09:21)
[2017-06-27] MEDS: SOLIFENACIN SUCCINATE 5 MG TAB (FP) PO SCH (09:21)
[2017-06-27] MEDS: LISINOPRIL 20 MG TABLET (FP) PO SCH (09:21)
[2017-06-27] MEDS: BUDESONIDE/FORMETEROL FUMARATE 160/4.5 mcg INHALER IH SCH ×2 (09:22→21:59)
[2017-06-27] MEDS: ENOXAPARIN NA (PORCINE) 100 MG/1 ML DISP.SYRIN SQ SCH ×2 (09:25→21:46)
--- NOTE | 2017-06-27 12:56 | PN ---
Progress Note (short form) - Note Progress Note: No CP or SOB. No acute events overnight. Lovenox BID. Intake & Output 06/24/17 06/25/17 06/26/17 06/27/17 23:59 23:59 23:59 23:59 Intake Total 450 300 Balance 450 300 Weight 248 lb 238 lb 9.6 oz 240 lb 0.9 oz Last Vital Signs Temp Pulse Resp BP Pulse Ox 97.6 F 51 L 18 142/67 98 06/27/17 08:27 06/27/17 08:27 06/27/17 08:27 06/27/17 08:27 06/27/17 04:30 Active Medications Albuterol Sulfate (Ventolin 0.083% Nebulizer Soln -) 1 amp NEB Q4H PRN PRN Reason: SHORT OF BREATH/WHEEZING Atorvastatin Calcium (Lipitor -) 10 mg PO [facility] Last Admin: 06/26/17 21:44 Dose: 10 mg Budesonide/Formoterol Fumarate (Symbicort 160/4.5mcg -) 2 puff IH BID [facility] Last Admin: 06/27/17 09:22 Dose: 2 puff Calcium Carbonate/Cholecalciferol (Os-Ray 500+D -) 1 tab PO DAILY [facility] Last Admin: 06/27/17 09:21 Dose: 1 tab Enoxaparin Sodium (Lovenox -) 100 mg SQ BID [facility] Last Admin: 06/27/17 09:25 Dose: 100 mg Insulin Aspart (Novolog Vial) 10 units SQ TIDAC [facility] Last Admin: 06/27/17 12:05 Dose: 10 units Insulin Detemir (Levemir Vial) 50 units SQ [facility] Last Admin: 06/26/17 21:45 Dose: 50 units Lisinopril (Prinivil) 20 mg PO DAILY [facility] Last Admin: 06/27/17 09:21 Dose: 20 mg Metformin HCl (Glucophage -) 500 mg PO DAILY@0700 [facility] Last Admin: 06/27/17 06:22 Dose: 500 mg Mirtazapine (Remeron -) 7.5 mg PO [facility] Last Admin: 06/26/17 21:44 Dose: 7.5 mg Solifenacin (Vesicare -) 5 mg PO DAILY [facility] Last Admin: 06/27/17 09:21 Dose: 5 mg Tiotropium [place] (Spiriva -) 1 puff IH DAILY [facility] Last Admin: 06/27/17 09:21 Dose: 1 puff Constitutional: Yes: NAD HENT: Yes: WNL Neck: Yes: WNL, Supple Cardiovascular: Yes: WNL, Regular Rate and Rhythm Respiratory: Yes: CTA Bilaterally Gastrointestinal: Yes: WNL, Normal Bowel Sounds, Soft Extremities: Yes: Other ((+) swelling RLE) Neurological: Yes: WNL, Alert, Oriented ...Motor Strength: WNL Labs: Laboratory Results - last 24 hr 06/26/17 06/26/17 06/27/17 16:39 20:58 06:22 POC Glucometer 168 199 267 06/27/17 11:31 POC Glucometer 156 Problem List - Problems (1) DVT (deep venous thrombosis) Code(s): I82.409 - ACUTE EMBOLISM AND THOMBOS UNSP DEEP VN UNSP LOWER EXTREMITY Qualifiers: DVT location: lower extremity Chronicity: unspecified Laterality: right (2) Bronchitis Code(s): J40 - BRONCHITIS, NOT SPECIFIED ACUTE OR CHRONIC (3) Neuropathy due to type 2 diabetes mellitus Code(s): E11.40 - TYPE 2 DIABETES MELLITUS WITH DIABETIC NEUROPATHY, UNSP (4) Obesity (BMI 30-39.9) Code(s): E66.9 - OBESITY, UNSPECIFIED (5) Asthma Code(s): J45.909 - UNSPECIFIED ASTHMA, UNCOMPLICATED (6) Diabetes 1.5, managed as type 1 Code(s): E10.9 - TYPE 1 DIABETES MELLITUS WITHOUT COMPLICATIONS CONSULTATION DICTATED 06/26/17 IMP RLE DVT LIKELY CHRONIC H/O DVT/PE UNPROVOKED S/P IVC FILTER ASTHMA HTN IDDM PLAN LOVENOX BID BASED ON WEIGHT INHALED BRONCHODILATORS O2 PRN VASCULAR CONSULT CALLED TO PROVIDE INPUT ABOUT THE CHRONICITY OF HER DVT DR JONAS
--- NOTE | 2017-06-27 15:58 | PN ---
Progress Note (short form) - Note Progress Note: VAscular Surgery Pt seen and examined. History of dVT and PE in past. US on 06/25 shows chronic DVT in popliteal vein. Good flow in popliteal vein. Pt also has a superficial thrombosis of right SSV. Pt has IVC filter in place. DVT is chronic. No need for AC for SVT in ssv. Medical management. Encourage ambulation. For superficial clots - treatment is nsaids for pain, leg elevation , and warm compresses. Pt is asymptomatic in right posterior calf. Dat Mary DO
[2017-06-27] MEDS ORDERED: INSULIN (NOVOLOG) ASPART 100 UNITS/ML 10ML VIAL ONE (16:48)
[2017-06-27] MEDS: ATORVASTATIN CA 10 MG TABLET (FP) PO SCH (21:47)
[2017-06-27] MEDS: INSULIN DETEMIR 100 UNITS/ML MDV SQ SCH (21:47)
[2017-06-27] MEDS: MIRTAZAPINE 15 MG TABLET (FP) PO SCH (21:47)
[2017-06-28] MEDS: metFORMIN HCL 500 MG TABLET (FP) PO SCH (06:14)
[2017-06-28] MEDS: INSULIN (NOVOLOG) ASPART 100 UNITS/ML 10ML VIAL SQ SCH ×3 (06:15→17:51)
[2017-06-28] MEDS ORDERED: PT OWN MED DRAWER 7, Y5N ONE ×3 (11:03→15:51)
[2017-06-28] MEDS: BUDESONIDE/FORMETEROL FUMARATE 160/4.5 mcg INHALER IH SCH ×2 (11:04→22:47)
[2017-06-28] MEDS: CALCIUM 500MG/VIT-D 200 UNITS COMBO TABLET (FP) PO SCH (11:04)
[2017-06-28] MEDS: SOLIFENACIN SUCCINATE 5 MG TAB (FP) PO SCH (11:04)
[2017-06-28] MEDS: TIOTROPIUM BROMIDE 18 MCG/INH (DEVICE W/ 5 CAPSULES) IH SCH (11:05)
[2017-06-28] MEDS: LISINOPRIL 20 MG TABLET (FP) PO SCH (11:05)
[2017-06-28] MEDS: ENOXAPARIN NA (PORCINE) 100 MG/1 ML DISP.SYRIN SQ SCH ×2 (11:05→22:47)
--- NOTE | 2017-06-28 13:31 | CON.ID ---
Consult Consult Specialty:: infectious diseases Referred by:: Reason for Consultation:: esbl uti - History of Present Illness Chief Complaint: sob and left side pain History of Present Illness: 56 y/o female with PMH significant for HTN, DM and HLD. admitted because of sob and left sided probably pleuritic pain and dvt Patient was worked up and found to have DVT of the right leg f on ultrasound by her personal banking assistant Dr. Romeo. The patient states she has noticed her right leg has been appearing more swollen than the left leg and reports she has a history of DVT's in the past. The patient also states she was recently treated for pneumonia and had some mild shortness of breath, however, is not having any now. Pt does have a dry nonproductive cough. The patient reports she used to take Coumadin but was taken off approx. one year ago. patient now on further work up has been found to have esbl uti patients main complaint is still left sided pain slightly anteriorly denies fever or chills - History Source History Provided By: Patient Limitations to Obtaining History: No Limitations - Past Medical History Cardio/Vascular: Yes: HTN, Hyperlipdemia Pulmonary: Yes: Asthma ...LMP: 07/29/11 Endocrine: Yes: Diabetes Mellitus - Alcohol/Substance Use Hx Alcohol Use: No - Smoking History Smoking history: Never smoked Have you smoked in the past 12 months: No Aproximately how many cigarettes per day: 0 If you are a former smoker, when did you quit?: 2006 - Social History History of Recent Travel: No Home Medications - Allergies Allergies/Adverse Reactions: Allergies Allergy/AdvReac Type Severity Reaction Status Date / Time duloxetine HCl AdvReac Mild dizzy Verified 06/25/17 19:26 [From Cymbalta] gabapentin AdvReac Mild edema Verified 06/25/17 19:26 shellfish derived AdvReac Mild Swelling Verified 06/25/17 19:26 - Home Medications Home Medications: Ambulatory Orders Albuterol Sulfate Inhaler - [Ventolin HFA Inhaler -] 1 - 2 inh IH Q4H PRN #0 inh 04/02/14 Cyclobenzaprine HCl [Flexeril -] 10 mg PO TID PRN 03/03/15 Metformin HCl 500 mg PO DAILY 03/03/15 Diclofenac Sodium [Voltaren] 100 gm TP TID PRN 11/01/15 Lisinopril [Prinivil] 20 mg PO DAILY 08/24/16 Mirtazapine [Remeron -] 7.5 mg PO HS 08/24/16 Oxybutynin Chloride [Oxybutynin Chloride ER] 10 mg PO DAILY 08/24/16 Insulin Glargine,Hum.rec.anlog [Basaglar Kwikpen U-100] 50 unit SQ HS 11/23/16 Oxycodone HCl/Acetaminophen [Percocet 10-325 mg Tablet] 1 each PO TID PRN #60 tab MDD 3 06/13/17 Atorvastatin Ca [Lipitor] 40 mg PO HS 06/26/17 Calcium Carbonate/Vitamin D3 [Calcium 600-Vit D3 400 Tablet] 1 each PO DAILY Fenofibrate Nanocrystallized [Fenofibrate] 145 mg PO DAILY 06/26/17 Guaifenesin Dm [Robitussin Dm -] 10 ml PO Q4H PRN 06/26/17 Insulin Aspart [Novolog] 0 unit SQ ASDIR 06/26/17 Omeprazole 40 mg PO DAILY 06/26/17 Family Disease History - Family Disease History Family Disease History: Diabetes: Mother (stroke), Sister, Heart Disease: Father , Mother, Other: Mother, Brother (renal), Daughter (RA) Review of Systems - Review of Systems Constitutional: reports: No Symptoms Eyes: reports: No Symptoms HENT: reports: No Symptoms Neck: reports: No Symptoms Cardiovascular: reports: No Symptoms Respiratory: reports: Cough Gastrointestinal: reports: No Symptoms Genitourinary: reports: No Symptoms Musculoskeletal: reports: No Symptoms Integumentary: reports: No Symptoms Neurological: reports: No Symptoms Endocrine: reports: No Symptoms Hematology/Lymphatic: reports: No Symptoms Psychiatric: reports: No Symptoms Physical Exam Vital Signs: Vital Signs Temperature 99.4 F 06/28/17 09:00 Pulse Rate 67 06/28/17 09:00 Respiratory Rate 18 06/28/17 09:00 Blood Pressure 126/85 06/28/17 09:00 O2 Sat by Pulse Oximetry (%) 93 L 06/28/17 12:00 Constitutional: Yes: Well Nourished, No Distress Eyes: Yes: Conjunctiva Clear HENT: Yes: Atraumatic, Normocephalic Neck: Yes: Supple, Trachea Midline Cardiovascular: Yes: Regular Rate and Rhythm Respiratory: Yes: Regular, CTA Bilaterally Gastrointestinal: Yes: Normal Bowel Sounds, Soft Musculoskeletal: Yes: WNL Extremities: Yes: WNL Integumentary: Yes: WNL Neurological: Yes: Alert, Oriented Psychiatric: Yes: Alert, Oriented Labs: CBC, BMP 06/25/17 21:15 06/25/17 23:49 Imaging - Results Chest X-ray: Report Reviewed, Image Reviewed Ultrasound: Report Reviewed, Image Reviewed Assessment/Plan Problem List - Problems (1) DVT (deep venous thrombosis) Code(s): I82.409 - ACUTE EMBOLISM AND THOMBOS UNSP DEEP VN UNSP LOWER EXTREMITY Qualifiers: DVT location: lower extremity Chronicity: unspecified Laterality: right (2) Bronchitis Code(s): J40 - BRONCHITIS, NOT SPECIFIED ACUTE OR CHRONIC (3) Neuropathy due to type 2 diabetes mellitus Code(s): E11.40 - TYPE 2 DIABETES MELLITUS WITH DIABETIC NEUROPATHY, UNSP (4) Obesity (BMI 30-39.9) Code(s): E66.9 - OBESITY, UNSPECIFIED (5) Asthma Code(s): J45.909 - UNSPECIFIED ASTHMA, UNCOMPLICATED (6) Diabetes 1.5, managed as type 1 Code(s): E10.9 - TYPE 1 DIABETES MELLITUS WITHOUT COMPLICATIONS 7 esbl uti plan will start patient on ertapenam patient will need complete two week course pul on case rest as per primary team
--- NOTE | 2017-06-28 14:57 | PN ---
Progress Note, Physician History of Present Illness: pulmonary alert,nad,+ c/o cough,-cp. - Current Medication List Current Medications: Active Medications Albuterol Sulfate (Ventolin 0.083% Nebulizer Soln -) 1 amp NEB Q4H PRN PRN Reason: SHORT OF BREATH/WHEEZING Atorvastatin Calcium (Lipitor -) 10 mg PO [facility] Last Admin: 06/27/17 21:47 Dose: 10 mg Budesonide/Formoterol Fumarate (Symbicort 160/4.5mcg -) 2 puff IH BID [facility] Last Admin: 06/28/17 11:04 Dose: 2 puff Calcium Carbonate/Cholecalciferol (Os-Ray 500+D -) 1 tab PO DAILY [facility] Last Admin: 06/28/17 11:04 Dose: 1 tab Enoxaparin Sodium (Lovenox -) 100 mg SQ BID [facility] Last Admin: 06/28/17 11:05 Dose: 100 mg Ertapenem 1 gm/ Sodium (Chloride) 100 mls @ 200 mls/hr IVPB DAILY [facility] PRN Reason: Protocol Insulin Aspart (Novolog Vial) 10 units SQ TIDAC [facility] Last Admin: 06/28/17 12:13 Dose: 10 units Insulin Detemir (Levemir Vial) 50 units SQ [facility] Last Admin: 06/27/17 21:47 Dose: 50 units Lisinopril (Prinivil) 20 mg PO DAILY [facility] Last Admin: 06/28/17 11:05 Dose: 20 mg Metformin HCl (Glucophage -) 500 mg PO DAILY@0700 [facility] Last Admin: 06/28/17 06:14 Dose: 500 mg Mirtazapine (Remeron -) 7.5 mg PO [facility] Last Admin: 06/27/17 21:47 Dose: 7.5 mg Solifenacin (Vesicare -) 5 mg PO DAILY [facility] Last Admin: 06/28/17 11:04 Dose: 5 mg Tiotropium [place] (Spiriva -) 1 puff IH DAILY [facility] Last Admin: 06/28/17 11:05 Dose: 1 puff - Objective Vital Signs: Vital Signs Temperature 99.4 F 06/28/17 09:00 Pulse Rate 67 06/28/17 09:00 Respiratory Rate 18 06/28/17 09:00 Blood Pressure 126/85 06/28/17 09:00 O2 Sat by Pulse Oximetry (%) 93 L 06/28/17 12:00 Constitutional: Yes: Well Nourished, Calm Eyes: Yes: WNL HENT: Yes: WNL Neck: Yes: WNL Cardiovascular: Yes: Regular Rate and Rhythm, S1, S2 Respiratory: Yes: Rhonchi Gastrointestinal: Yes: Normal Bowel Sounds, Soft Extremities: Yes: WNL Edema: Yes Labs: Problem List - Problems (1) DVT (deep venous thrombosis) Code(s): I82.409 - ACUTE EMBOLISM AND THOMBOS UNSP DEEP VN UNSP LOWER EXTREMITY Qualifiers: DVT location: lower extremity Chronicity: unspecified Laterality: right (2) Bronchitis Code(s): J40 - BRONCHITIS, NOT SPECIFIED ACUTE OR CHRONIC (3) Neuropathy due to type 2 diabetes mellitus Code(s): E11.40 - TYPE 2 DIABETES MELLITUS WITH DIABETIC NEUROPATHY, UNSP (4) Obesity (BMI 30-39.9) Code(s): E66.9 - OBESITY, UNSPECIFIED (5) Asthma Code(s): J45.909 - UNSPECIFIED ASTHMA, UNCOMPLICATED (6) Diabetes 1.5, managed as type 1 Code(s): E10.9 - TYPE 1 DIABETES MELLITUS WITHOUT COMPLICATIONS Assessment/Plan IMP RLE DVT LIKELY CHRONIC H/O DVT/PE UNPROVOKED S/P IVC FILTER ASTHMA HTN IDDM ESBL IN URINE PLAN ABX PER ID INHALED BRONCHODILATORS O2 PRN [address] HOPSON Problem List - Problems (1) DVT (deep venous thrombosis) Code(s): I82.409 - ACUTE EMBOLISM AND THOMBOS UNSP DEEP VN UNSP LOWER EXTREMITY Qualifiers: DVT location: lower extremity Chronicity: unspecified Laterality: right (2) Bronchitis Code(s): J40 - BRONCHITIS, NOT SPECIFIED ACUTE OR CHRONIC (3) Neuropathy due to type 2 diabetes mellitus Code(s): E11.40 - TYPE 2 DIABETES MELLITUS WITH DIABETIC NEUROPATHY, UNSP (4) Obesity (BMI 30-39.9) Code(s): E66.9 - OBESITY, UNSPECIFIED (5) Asthma Code(s): J45.909 - UNSPECIFIED ASTHMA, UNCOMPLICATED (6) Diabetes 1.5, managed as type 1 Code(s): E10.9 - TYPE 1 DIABETES MELLITUS WITHOUT COMPLICATIONS
[2017-06-28] MEDS: ERTAPENEM SODIUM 1 GM in SODIUM CHLORIDE 100 ML IVPB SCH (15:39)
[2017-06-28] MEDS ORDERED: INSULIN (NOVOLOG) ASPART 100 UNITS/ML 10ML VIAL ONE (17:34)
[2017-06-28] MEDS: INSULIN DETEMIR 100 UNITS/ML MDV SQ SCH (22:46)
[2017-06-28] MEDS: MIRTAZAPINE 15 MG TABLET (FP) PO SCH (22:47)
[2017-06-28] MEDS: ATORVASTATIN CA 10 MG TABLET (FP) PO SCH (22:47)
--- NOTE | 2017-06-29 00:03 | PN ---
Progress Note, Physician - Current Medication List Current Medications: Active Medications Albuterol Sulfate (Ventolin 0.083% Nebulizer Soln -) 1 amp NEB Q4H PRN PRN Reason: SHORT OF BREATH/WHEEZING Atorvastatin Calcium (Lipitor -) 10 mg PO [facility] Last Admin: 06/28/17 22:47 Dose: 10 mg Budesonide/Formoterol Fumarate (Symbicort 160/4.5mcg -) 2 puff IH BID [facility] Last Admin: 06/28/17 22:47 Dose: 2 puff Calcium Carbonate/Cholecalciferol (Os-Ray 500+D -) 1 tab PO DAILY [facility] Last Admin: 06/28/17 11:04 Dose: 1 tab Enoxaparin Sodium (Lovenox -) 100 mg SQ BID [facility] Last Admin: 06/28/17 22:47 Dose: 100 mg Ertapenem 1 gm/ Sodium (Chloride) 100 mls @ 200 mls/hr IVPB DAILY [facility] PRN Reason: Protocol Last Admin: 06/28/17 15:39 Dose: 200 mls/hr Insulin Aspart (Novolog Vial) 10 units SQ TIDAC [facility] Last Admin: 06/28/17 17:51 Dose: 10 units Insulin Detemir (Levemir Vial) 50 units SQ [facility] Last Admin: 06/28/17 22:46 Dose: 50 units Lisinopril (Prinivil) 20 mg PO DAILY [facility] Last Admin: 06/28/17 11:05 Dose: 20 mg Metformin HCl (Glucophage -) 500 mg PO DAILY@0700 [facility] Last Admin: 06/28/17 06:14 Dose: 500 mg Mirtazapine (Remeron -) 7.5 mg PO [facility] Last Admin: 06/28/17 22:47 Dose: 7.5 mg Solifenacin (Vesicare -) 5 mg PO DAILY [facility] Last Admin: 06/28/17 11:04 Dose: 5 mg Tiotropium [place] (Spiriva -) 1 puff IH DAILY [facility] Last Admin: 06/28/17 11:05 Dose: 1 puff - Objective Vital Signs: Vital Signs Temperature 98.3 F 06/28/17 17:30 Pulse Rate 62 06/28/17 17:30 Respiratory Rate 18 06/28/17 17:30 Blood Pressure 138/78 06/28/17 17:30 O2 Sat by Pulse Oximetry (%) 93 L 06/28/17 12:00 Labs: CBC, BMP 06/25/17 21:15 06/25/17 23:49 INR, PTT INR 1.26 (0.82-1.09) H 06/25/17 21:15 Problem List - Problems (1) DVT (deep venous thrombosis) Code(s): I82.409 - ACUTE EMBOLISM AND THOMBOS UNSP DEEP VN UNSP LOWER EXTREMITY Qualifiers: DVT location: lower extremity Chronicity: unspecified Laterality: right (2) Asthma Code(s): J45.909 - UNSPECIFIED ASTHMA, UNCOMPLICATED (3) Chronic renal insufficiency, stage III (moderate) Code(s): N18.3 - CHRONIC KIDNEY DISEASE, STAGE 3 (MODERATE) (4) GERD (gastroesophageal reflux disease) Code(s): K21.9 - GASTRO-ESOPHAGEAL REFLUX DISEASE WITHOUT ESOPHAGITIS Qualifiers: Esophagitis presence: without esophagitis Qualified Code(s): K21.9 - Gastro -esophageal reflux disease without esophagitis (5) Diabetes Code(s): E11.9 - TYPE 2 DIABETES MELLITUS WITHOUT COMPLICATIONS (6) HTN (hypertension) Code(s): I10 - ESSENTIAL (PRIMARY) HYPERTENSION (7) HLD (hyperlipidemia) Code(s): E78.5 - HYPERLIPIDEMIA, UNSPECIFIED
[2017-06-29] MEDS: metFORMIN HCL 500 MG TABLET (FP) PO SCH (06:11)
[2017-06-29] MEDS: INSULIN (NOVOLOG) ASPART 100 UNITS/ML 10ML VIAL SQ SCH ×3 (06:11→17:13)
--- NOTE | 2017-06-29 07:37 | PN ---
Progress Note (short form) - Note Progress Note: Patient seen and examined 06/29/15 at 5:30pm c/o obstructive urinary symptoms( chronic) and hematuria ( chronic) reports wt. loss reports rle burning at varicosities AFVSS Cor: RSR, No murmurs, No gallops Lungs: Clear to P&A Abd: Soft, Normal bowel sounds, No organomegaly Ext:No significant edema Labs/MEds reviewed A/P 56 y/o patient with DM h/o Prior unprovoked DVT/PE in 11/2014 off of AC after a detailed discussion of pros/cons of continued AC in 2016, elected to stop with close monitoring and also she was having frequent falls at that time. Thrombophilia w/u was negative Now with w with some RLE burning over varicosities. Duplex currently shows chronic RLE DVT present even in 2014 [place] rt. LSV superficial thrombosis ---? related to varicosities currently on lovenox---since rt. popliteall DVT is chronic , rt. LSV superficial thrombosis probably related to varicosities --could probably repeat duplex in 2 weeks to make sure there is no progression and LSV superficial thrombosis conservatively for now with warm compress. Alternatively could anticoagulate with DVT prophylaxis doses -- lovenox 40mg SC daily for 1 month will request fall risk assessment by neurology will need outpatient f/u with breast surgery/[employer]/GI and pulmonary teams will need age appropriate cancer screening ESBL UTI --treatment per ID team Will need to f/u with [employer] MANAGER/Urology regarding above obstructive urinary symptoms
[2017-06-29] MEDS ORDERED: PT OWN MED DRAWER 7, Y5N ONE ×2 (09:45→21:44)
[2017-06-29] MEDS: CALCIUM 500MG/VIT-D 200 UNITS COMBO TABLET (FP) PO SCH (10:01)
[2017-06-29] MEDS: SOLIFENACIN SUCCINATE 5 MG TAB (FP) PO SCH (10:01)
[2017-06-29] MEDS: ERTAPENEM SODIUM 1 GM in SODIUM CHLORIDE 100 ML IVPB SCH (10:01)
[2017-06-29] MEDS: ENOXAPARIN NA (PORCINE) 40 MG/0.4 ML DISP.SYRIN SQ SCH (10:01)
[2017-06-29] MEDS: LISINOPRIL 20 MG TABLET (FP) PO SCH (10:02)
[2017-06-29] MEDS: TIOTROPIUM BROMIDE 18 MCG/INH (DEVICE W/ 5 CAPSULES) IH SCH (10:02)
[2017-06-29] MEDS: BUDESONIDE/FORMETEROL FUMARATE 160/4.5 mcg INHALER IH SCH ×2 (10:02→22:17)
--- NOTE | 2017-06-29 12:55 | CONSULT ---
Consult - text type - Consultation Consultation Note: Neurology History of Present Illness The patient is a 56 year old female, with a significant past medical history of hypertension, diabetes mellitus, hypercholesterolemia, who presented to the emergency department for evaluation of DVT to the right leg found on ultrasound by her filling station attendant Dr. Romeo. The patient states she has noticed her right leg has been appearing more swollen than the left leg and reports she has a history of DVT's in the past. The patient also states she was recently treated for pneumonia and had some mild shortness of breath, however, is not having any now. The patient reports she used to take Coumadin but was taken off approx. one year ago. I was consulted due to tingling sensations in her lower extremities. States they have been ongoing. Poor historian and when I asked her about neurontin/gabapentin she was not sure if she was on medication on the past. Gabapentin is listed on allergies but she is not sure if she was ever on it. She does have underlying DM and with likely diabetic neuropathy Past History - Past Medical History Anemia: No Asthma: Yes Cancer: No Cardiac Disorders: No CVA: No COPD: No CHF: No Dementia: No Diabetes: Yes (IDDM with neuropathy) GI Disorders: No Disorders: No HTN: Yes Hypercholesterolemia: Yes Liver Disease: No Seizures: No Thyroid Disease: No - Surgical History Abdominal Surgery: (ECTOPIC) Appendectomy: No Cardiac Surgery: No Cholecystectomy: No Lung Surgery: No Neurologic Surgery: No Orthopedic Surgery: Yes (fx r knee, l elbow sx, orif l wrist, orif r ankle) - Immunization History TDAP Vaccination: No Immunization Up to Date: No - Suicide/Smoking/Psychosocial Hx Smoking Status: No Smoking History: Never smoked Have you smoked in the past 12 months: No Number of Cigarettes Smoked Daily: 0 If you are a former smoker, when did you quit?: 2006 Information on smoking cessation initiated: No Hx Alcohol Use: No Drug/Substance Use Hx: No Substance Use Type: None Hx Substance Use Treatment: No - Past Medical History Allergies/Adverse Reactions: Allergies Allergy/AdvReac Type Severity Reaction Status Date / Time duloxetine HCl AdvReac Mild dizzy Verified 06/25/17 19:26 [From Cymbalta] gabapentin AdvReac Mild edema Verified 06/25/17 19:26 shellfish derived AdvReac Mild Swelling Verified 06/25/17 19:26 Home Medications: Ambulatory Orders Albuterol Sulfate Inhaler - [Ventolin HFA Inhaler -] 1 - 2 inh IH Q4H PRN #0 inh 04/02/14 Cyclobenzaprine HCl [Flexeril -] 10 mg PO TID PRN 03/03/15 Metformin HCl 500 mg PO DAILY 03/03/15 Diclofenac Sodium [Voltaren] 100 gm TP TID PRN 11/01/15 Lisinopril [Prinivil] 20 mg PO DAILY 08/24/16 Mirtazapine [Remeron -] 7.5 mg PO HS 08/24/16 Oxybutynin Chloride [Oxybutynin Chloride ER] 10 mg PO DAILY 08/24/16 Insulin Glargine,Hum.rec.anlog [Basaglar Kwikpen U-100] 50 unit SQ HS 11/23/16 Oxycodone HCl/Acetaminophen [Percocet 10-325 mg Tablet] 1 each PO TID PRN #60 tab MDD 3 06/13/17 Atorvastatin Ca [Lipitor] 40 mg PO HS 06/26/17 Calcium Carbonate/Vitamin D3 [Calcium 600-Vit D3 400 Tablet] 1 each PO DAILY Fenofibrate Nanocrystallized [Fenofibrate] 145 mg PO DAILY 06/26/17 Guaifenesin Dm [Robitussin Dm -] 10 ml PO Q4H PRN 06/26/17 Insulin Aspart [Novolog] 0 unit SQ ASDIR 06/26/17 Omeprazole 40 mg PO DAILY 06/26/17 Review of Systems CONSTITUTIONAL: Absent: fever, no chills, no fatigue EYES: Absent: visual changes ENT: Absent: ear pain, no sore throat CARDIOVASCULAR: Present: (+) Right leg swelling. Absent: chest pain, no palpitations RESPIRATORY: Absent: cough, no SOB GI: Absent: abdominal pain, no nausea, no vomiting, no constipation, no diarrhea GENITOURINARY: Absent: dysuria, no frequency, no hematuria MUSKULOSKELETAL: Absent: back pain, no arthralgia, no myalgia SKIN: Absent: rash NEURO: Absent: headache C/O tingling *Physical Exam Vital Signs Period Temp Pulse Resp BP Sys/Gunter Pulse Ox Last 24 Hr 98.0 F-98.4 F 50-63 18-20 138-150/62-89 95-95 GENERAL: Well-appearing, well-nourished. No apparent distress. HEENT: Normocephalic, atraumatic. PERRL, EOM intact. CARDIOVASCULAR: Normal S1, S2. Regular rate and rhythm. PULMONARY: Clear to auscultation bilaterally. ABDOMEN: Soft, non-distended, non-tender. EXTREMITIES: (+) Right leg is slightly more swollen than left around the calf region. No calf tenderness, cords or erythema. Normal ROM in all four extremities. No gross deformities. SKIN: Warm, dry. No rash NEUROLOGICAL: CN intact, strenght intact, No focal neurological deficits, sensory slight decrease in b/l LE, gait deferred - RADIOLOGY Radiograph Interpretation: 06/25/17 21:22 EXAM#: TYPE/EXAM: RESULT: [id number] US/DUPLEX VASCUL US-2LEGS INDICATION: History of deep vein thrombosis and IVC filter. Clinical suspicion for lower extremity deep vein thrombosis. TECHNIQUE: Real-time grayscale, color Doppler and spectral Doppler sonogram of the deep veins in the right and left lower extremities was performed by the technologist utilizing compression and augmentation maneuvers. The common femoral veins including the junctions with the greater saphenous veins, the femoral, profunda femoral, popliteal and posterior tibial veins were interrogated in the right and left lower extremities. Images are submitted for review. COMPARISON: 07/11/2016 left lower extremity duplex and 12/15/2014 bilateral lower extremity duplex. FINDINGS: Left - There is no evidence of deep vein thrombosis in the left lower extremity. The interrogated veins, as listed above, demonstrate compressibility and flow related Doppler signal. Right - There is incomplete compressibility of the right popliteal vein with eccentric echogenic thrombus, likely chronic. There is flow related Doppler signal in the right popliteal vein. There is also thrombosis of the right lesser saphenous vein, with no definite flow. Otherwise, no evidence of deep vein thrombosis in the right common femoral, femoral or profunda femoral veins. IMPRESSION: 1. Right popliteal vein thrombus as described above is likely chronic. Occlusive thrombosis of the right lesser saphenous vein. 2. No evidence of left lower extremity deep vein thrombosis, as above. 06/25/17 21:23 EXAM#: TYPE/EXAM: RESULT: [id number] RAD/CHEST PA LAT HISTORY PROVIDED: Rule out infiltrate PA and lateral projections of the chest are submitted. The heart size is within normal limits. The lung evans are free of pulmonary infiltrates or pleural effusions. There is tortuosity and calcification of the thoracic aorta and degenerative changes of the thoracic spine. IMPRESSION: No acute disease. - LABORATORY CBCD WBC 6.5 K/mm3 (4.0-10.0) 06/25/17 21:15 RBC 4.41 M/mm3 (3.60-5.2) 06/25/17 21:15 Hgb 13.0 GM/dL (10.7-15.3) 06/25/17 21:15 Hct 39.9 % (32.4-45.2) 06/25/17 21:15 MCV 90.5 fl (80-96) 06/25/17 21:15 MCHC 32.4 g/dl (32.0-36.0) 06/25/17 21:15 RDW 14.7 % (11.6-15.6) 06/25/17 21:15 Plt Count 150 K/MM3 (134-434) 06/25/17 21:15 MPV 10.8 fl (7.5-11.1) D 06/25/17 21:15 CMP Sodium 141 mmol/L (136-145) 06/25/17 23:49 Potassium 3.7 mmol/L (3.5-5.1) 06/25/17 23:49 Chloride 104 mmol/L (98-107) 06/25/17 23:49 Carbon Dioxide 26 mmol/L (21-32) 06/25/17 23:49 Anion Gap 11 (8-16) 06/25/17 23:49 BUN 13 mg/dL (7-18) 06/25/17 23:49 Creatinine 0.9 mg/dL (0.55-1.02) 06/25/17 23:49 Creat Clearance w eGFR > 60 (>60) 06/25/17 23:49 Calcium 9.0 mg/dL (8.5-10.1) 06/25/17 23:49 Total Bilirubin 0.3 mg/dL (0.2-1.0) 06/25/17 23:49 AST 15 U/L (15-37) 06/25/17 23:49 ALT 22 U/L (12-78) 06/25/17 23:49 Alkaline Phosphatase 83 U/L (45-117) 06/25/17 23:49 Total Protein 6.4 g/dl (6.4-8.2) 06/25/17 23:49 Albumin 3.1 g/dl (3.4-5.0) L 06/25/17 23:49 Medical Decision Making 56 year old female, with a significant past medical history of hypertension, diabetes mellitus, hypercholesterolemia, who presented to the emergency department for evaluation of DVT to the right leg found on ultrasound by her filling station attendant Dr. Romeo. The patient states she has noticed her right leg has been appearing more swollen than the left leg and reports she has a history of DVT's in the past. The patient also states she was recently treated for pneumonia and had some mild shortness of breath, however, is not having any now. The patient reports she used to take Coumadin but was taken off approx. one year ago. I was consulted due to tingling sensations in her lower extremities. States they have been ongoing. Poor historian and when I asked her about neurontin/gabapentin she was not sure if she was on medication on the past. Gabapentin is listed on allergies but she is not sure if she was ever on it. She does have underlying DM and with likely diabetic neuropathy. Will start on Lyrica 75mg twice daily since Gabapentin allergy listed. Theraputic benefit may take time and therefore may need to wait to see benefit. Tight glycemic control recommended and most beneficial to diminishing neuropathy.
--- NOTE | 2017-06-29 13:26 | PN ---
Progress Note (short form) - Note Progress Note: PULMONARY Reports persistent nonproductive cough. No fevers or chills. No chest pain. Last Vital Signs Temp Pulse Resp BP Pulse Ox 98.3 F 50 L 20 144/67 95 06/29/17 06:00 06/29/17 06:00 06/29/17 06:00 06/29/17 06:00 06/29/17 04:00 Gen: NAD at rest Heart: RRR Lung: decreased breath sounds at the bases Abd: soft, nontender Ext: no edema CBC, BMP 06/25/17 21:15 06/25/17 23:49 Active Medications Albuterol Sulfate (Ventolin 0.083% Nebulizer Soln -) 1 amp NEB Q4H PRN PRN Reason: SHORT OF BREATH/WHEEZING Atorvastatin Calcium (Lipitor -) 10 mg PO [facility] Last Admin: 06/28/17 22:47 Dose: 10 mg Budesonide/Formoterol Fumarate (Symbicort 160/4.5mcg -) 2 puff IH BID [facility] Last Admin: 06/29/17 10:02 Dose: 2 puff Calcium Carbonate/Cholecalciferol (Os-Ray 500+D -) 1 tab PO DAILY [facility] Last Admin: 06/29/17 10:01 Dose: 1 tab Enoxaparin Sodium (Lovenox -) 40 mg SQ DAILY [facility] Last Admin: 06/29/17 10:01 Dose: 40 mg Ertapenem 1 gm/ Sodium (Chloride) 100 mls @ 200 mls/hr IVPB DAILY [facility] PRN Reason: Protocol Last Admin: 06/29/17 10:01 Dose: 200 mls/hr Insulin Aspart (Novolog Vial) 10 units SQ TIDAC [facility] Last Admin: 06/29/17 06:11 Dose: 10 units Insulin Detemir (Levemir Vial) 50 units SQ [facility] Last Admin: 06/28/17 22:46 Dose: 50 units Lisinopril (Prinivil) 20 mg PO DAILY [facility] Last Admin: 06/29/17 10:02 Dose: 20 mg Metformin HCl (Glucophage -) 500 mg PO DAILY@0700 [facility] Last Admin: 06/29/17 06:11 Dose: 500 mg Mirtazapine (Remeron -) 7.5 mg PO [facility] Last Admin: 03/02/18 22:47 Dose: 7.5 mg Pregabalin (Lyrica -) 75 mg PO BID [facility] Solifenacin (Vesicare -) 5 mg PO DAILY [facility] Last Admin: 06/29/17 10:01 Dose: 5 mg Tiotropium [place] (Spiriva -) 1 puff IH DAILY [facility] Last Admin: 06/29/17 10:02 Dose: 1 puff A/P RLE DVT Asthma HTN DM - continue inhaled bronchodilators - will start singulair - glucose control - recommend anticoagulation
[2017-06-29] MEDS: PREGABALIN 75 MG CAPSULE PO SCH ×2 (13:41→22:16)
[2017-06-29] MEDS: ALBUTEROL SO4 0.083% IH SOL 2.5 MG/3 ML VIAL.NEB. NEB SCH (13:55)
--- NOTE | 2017-06-29 15:44 | PN ---
Progress Note, Physician History of Present Illness: Pt seen and examined, events noted. Pt still with dry cough, afebrile, without acute distress. Denies dysuria or any other specific complaints. RLE mild edema. - Current Medication List Current Medications: Active Medications Albuterol Sulfate (Ventolin 0.083% Nebulizer Soln -) 1 amp NEB Q4H PRN PRN Reason: SHORT OF BREATH/WHEEZING Albuterol Sulfate (Ventolin 0.083% Nebulizer Soln -) 1 amp NEB RTID [facility] Last Admin: 06/29/17 13:55 Dose: 1 amp Atorvastatin Calcium (Lipitor -) 10 mg PO HS [facility] Last Admin: 06/28/17 22:47 Dose: 10 mg Budesonide/Formoterol Fumarate (Symbicort 160/4.5mcg -) 2 puff IH BID [facility] Last Admin: 06/29/17 10:02 Dose: 2 puff Calcium Carbonate/Cholecalciferol (Os-Ray 500+D -) 1 tab PO DAILY [facility] Last Admin: 06/29/17 10:01 Dose: 1 tab Enoxaparin Sodium (Lovenox -) 40 mg SQ DAILY [facility] Last Admin: 06/29/17 10:01 Dose: 40 mg Ertapenem 1 gm/ Sodium (Chloride) 100 mls @ 200 mls/hr IVPB DAILY [facility] PRN Reason: Protocol Last Admin: 06/29/17 10:01 Dose: 200 mls/hr Insulin Aspart (Novolog Vial) 10 units SQ TIDAC [facility] Last Admin: 06/29/17 13:40 Dose: 10 units Insulin Detemir (Levemir Vial) 50 units SQ [facility] Last Admin: 06/28/17 22:46 Dose: 50 units Lisinopril (Prinivil) 20 mg PO DAILY [facility] Last Admin: 06/29/17 10:02 Dose: 20 mg Metformin HCl (Glucophage -) 500 mg PO DAILY@0700 [facility] Last Admin: 06/29/17 06:11 Dose: 500 mg Mirtazapine (Remeron -) 7.5 mg PO [facility] Last Admin: 06/28/17 22:47 Dose: 7.5 mg Montelukast Sodium (Singulair -) 10 mg PO [facility] Pregabalin (Lyrica -) 75 mg PO BID [facility] Last Admin: 06/29/17 13:41 Dose: 75 mg Solifenacin (Vesicare -) 5 mg PO DAILY [facility] Last Admin: 06/29/17 10:01 Dose: 5 mg Tiotropium [place] (Spiriva -) 1 puff IH DAILY [facility] Last Admin: 06/29/17 10:02 Dose: 1 puff - Objective Vital Signs: Vital Signs Temperature 98.2 F 06/29/17 10:00 Pulse Rate 68 06/29/17 10:00 Respiratory Rate 18 06/29/17 10:00 Blood Pressure 124/72 06/29/17 10:00 O2 Sat by Pulse Oximetry (%) 96 06/29/17 12:00 Constitutional: Yes: No Distress, Calm Neck: Yes: Supple Cardiovascular: Yes: Regular Rate and Rhythm Respiratory: Yes: Regular Gastrointestinal: Yes: Normal Bowel Sounds, Soft Genitourinary: Yes: WNL Edema: RLE: 1+ (mild rt calf tenderness) Integumentary: Yes: WNL Labs: CBC, BMP 06/25/17 21:15 06/25/17 23:49 INR, PTT INR 1.26 (0.82-1.09) H 06/25/17 21:15 Microbiology 06/25/17 21:15 Urine - Urine Clean Catch Urine Culture - Final Escherichia Coli Esbl Plant Technician/Control Room Operator - ....Imaging Chest X-ray: Report Reviewed (no acute infiltrates) Problem List - Problems (1) Asthma Code(s): J45.909 - UNSPECIFIED ASTHMA, UNCOMPLICATED (2) DVT (deep venous thrombosis) Code(s): I82.409 - ACUTE EMBOLISM AND THOMBOS UNSP DEEP VN UNSP LOWER EXTREMITY Qualifiers: DVT location: lower extremity Chronicity: unspecified Laterality: right (3) Diabetes Code(s): E11.9 - TYPE 2 DIABETES MELLITUS WITHOUT COMPLICATIONS (4) HTN (hypertension) Code(s): I10 - ESSENTIAL (PRIMARY) HYPERTENSION (5) Neuropathy due to type 2 diabetes mellitus Code(s): E11.40 - TYPE 2 DIABETES MELLITUS WITH DIABETIC NEUROPATHY, UNSP (6) Obesity (BMI 30-39.9) Code(s): E66.9 - OBESITY, UNSPECIFIED Assessment/Plan ESBL (+) E. coli UTI RLE DVT Hx of DVT/PE s/p IVC filter s/p treatment for PNA - continue Ertapenem - monitor vitals, pt currently stable
--- NOTE | 2017-06-29 15:47 | PN ---
Progress Note, Physician - Current Medication List Current Medications: Active Medications Albuterol Sulfate (Ventolin 0.083% Nebulizer Soln -) 1 amp NEB Q4H PRN PRN Reason: SHORT OF BREATH/WHEEZING Albuterol Sulfate (Ventolin 0.083% Nebulizer Soln -) 1 amp NEB RTID [facility] Last Admin: 06/29/17 13:55 Dose: 1 amp Atorvastatin Calcium (Lipitor -) 10 mg PO HS [facility] Last Admin: 06/28/17 22:47 Dose: 10 mg Budesonide/Formoterol Fumarate (Symbicort 160/4.5mcg -) 2 puff IH BID [facility] Last Admin: 06/29/17 10:02 Dose: 2 puff Calcium Carbonate/Cholecalciferol (Os-Ray 500+D -) 1 tab PO DAILY [facility] Last Admin: 06/29/17 10:01 Dose: 1 tab Enoxaparin Sodium (Lovenox -) 40 mg SQ DAILY [facility] Last Admin: 06/29/17 10:01 Dose: 40 mg Ertapenem 1 gm/ Sodium (Chloride) 100 mls @ 200 mls/hr IVPB DAILY [facility] PRN Reason: Protocol Last Admin: 06/29/17 10:01 Dose: 200 mls/hr Insulin Aspart (Novolog Vial) 10 units SQ TIDAC [facility] Last Admin: 06/29/17 13:40 Dose: 10 units Insulin Detemir (Levemir Vial) 50 units SQ HS [facility] Last Admin: 06/28/17 22:46 Dose: 50 units Lisinopril (Prinivil) 20 mg PO DAILY [facility] Last Admin: 06/29/17 10:02 Dose: 20 mg Metformin HCl (Glucophage -) 500 mg PO DAILY@0700 [facility] Last Admin: 06/29/17 06:11 Dose: 500 mg Mirtazapine (Remeron -) 7.5 mg PO [facility] Last Admin: 06/28/17 22:47 Dose: 7.5 mg Montelukast Sodium (Singulair -) 10 mg PO [facility] Pregabalin (Lyrica -) 75 mg PO BID [facility] Last Admin: 06/29/17 13:41 Dose: 75 mg Solifenacin (Vesicare -) 5 mg PO DAILY [facility] Last Admin: 06/29/17 10:01 Dose: 5 mg Tiotropium [place] (Spiriva -) 1 puff IH DAILY [facility] Last Admin: 06/29/17 10:02 Dose: 1 puff - Objective Vital Signs: Vital Signs Temperature 98.2 F 06/29/17 10:00 Pulse Rate 68 06/29/17 10:00 Respiratory Rate 18 06/29/17 10:00 Blood Pressure 124/72 06/29/17 10:00 O2 Sat by Pulse Oximetry (%) 96 06/29/17 12:00 Labs: CBC, BMP 06/25/17 21:15 06/25/17 23:49 INR, PTT INR 1.26 (0.82-1.09) H 06/25/17 21:15 Problem List - Problems (1) DVT (deep venous thrombosis) Code(s): I82.409 - ACUTE EMBOLISM AND THOMBOS UNSP DEEP VN UNSP LOWER EXTREMITY Qualifiers: DVT location: lower extremity Chronicity: unspecified Laterality: right (2) Asthma Code(s): J45.909 - UNSPECIFIED ASTHMA, UNCOMPLICATED (3) Chronic renal insufficiency, stage III (moderate) Code(s): N18.3 - CHRONIC KIDNEY DISEASE, STAGE 3 (MODERATE) (4) GERD (gastroesophageal reflux disease) Code(s): K21.9 - GASTRO-ESOPHAGEAL REFLUX DISEASE WITHOUT ESOPHAGITIS Qualifiers: Esophagitis presence: without esophagitis Qualified Code(s): K21.9 - Gastro -esophageal reflux disease without esophagitis (5) Diabetes Code(s): E11.9 - TYPE 2 DIABETES MELLITUS WITHOUT COMPLICATIONS (6) HTN (hypertension) Code(s): I10 - ESSENTIAL (PRIMARY) HYPERTENSION (7) HLD (hyperlipidemia) Code(s): E78.5 - HYPERLIPIDEMIA, UNSPECIFIED
--- NOTE | 2017-06-29 19:10 | PN ---
Progress Note, Physician - Current Medication List Current Medications: Active Medications Albuterol Sulfate (Ventolin 0.083% Nebulizer Soln -) 1 amp NEB Q4H PRN PRN Reason: SHORT OF BREATH/WHEEZING Albuterol Sulfate (Ventolin 0.083% Nebulizer Soln -) 1 amp NEB RTID [facility] Last Admin: 06/29/17 13:55 Dose: 1 amp Atorvastatin Calcium (Lipitor -) 10 mg PO HS [facility] Last Admin: 06/28/17 22:47 Dose: 10 mg Budesonide/Formoterol Fumarate (Symbicort 160/4.5mcg -) 2 puff IH BID [facility] Last Admin: 06/29/17 10:02 Dose: 2 puff Calcium Carbonate/Cholecalciferol (Os-Ray 500+D -) 1 tab PO DAILY [facility] Last Admin: 06/29/17 10:01 Dose: 1 tab Enoxaparin Sodium (Lovenox -) 40 mg SQ DAILY [facility] Last Admin: 06/29/17 10:01 Dose: 40 mg Ertapenem 1 gm/ Sodium (Chloride) 100 mls @ 200 mls/hr IVPB DAILY [facility] PRN Reason: Protocol Last Admin: 06/29/17 10:01 Dose: 200 mls/hr Insulin Aspart (Novolog Vial) 10 units SQ TIDAC [facility] Last Admin: 06/29/17 17:13 Dose: 10 units Insulin Detemir (Levemir Vial) 50 units SQ HS [facility] Last Admin: 06/28/17 22:46 Dose: 50 units Lisinopril (Prinivil) 20 mg PO DAILY [facility] Last Admin: 06/29/17 10:02 Dose: 20 mg Metformin HCl (Glucophage -) 500 mg PO DAILY@0700 [facility] Last Admin: 06/29/17 06:11 Dose: 500 mg Mirtazapine (Remeron -) 7.5 mg PO [facility] Last Admin: 06/28/17 22:47 Dose: 7.5 mg Montelukast Sodium (Singulair -) 10 mg PO [facility] Pregabalin (Lyrica -) 75 mg PO BID [facility] Last Admin: 06/29/17 13:41 Dose: 75 mg Solifenacin (Vesicare -) 5 mg PO DAILY [facility] Last Admin: 06/29/17 10:01 Dose: 5 mg Tiotropium [place] (Spiriva -) 1 puff IH DAILY [facility] Last Admin: 06/29/17 10:02 Dose: 1 puff - Objective Vital Signs: Vital Signs Temperature 97.8 F 06/29/17 16:05 Pulse Rate 64 06/29/17 16:05 Respiratory Rate 20 06/29/17 16:05 Blood Pressure 132/74 06/29/17 16:05 O2 Sat by Pulse Oximetry (%) 96 06/29/17 12:00 Labs: CBC, BMP 06/25/17 21:15 06/25/17 23:49 INR, PTT INR 1.26 (0.82-1.09) H 06/25/17 21:15 Problem List - Problems (1) DVT (deep venous thrombosis) Code(s): I82.409 - ACUTE EMBOLISM AND THOMBOS UNSP DEEP VN UNSP LOWER EXTREMITY Qualifiers: DVT location: lower extremity Chronicity: unspecified Laterality: right (2) Asthma Code(s): J45.909 - UNSPECIFIED ASTHMA, UNCOMPLICATED (3) Chronic renal insufficiency, stage III (moderate) Code(s): N18.3 - CHRONIC KIDNEY DISEASE, STAGE 3 (MODERATE) (4) GERD (gastroesophageal reflux disease) Code(s): K21.9 - GASTRO-ESOPHAGEAL REFLUX DISEASE WITHOUT ESOPHAGITIS Qualifiers: Esophagitis presence: without esophagitis Qualified Code(s): K21.9 - Gastro -esophageal reflux disease without esophagitis (5) Diabetes Code(s): E11.9 - TYPE 2 DIABETES MELLITUS WITHOUT COMPLICATIONS (6) HTN (hypertension) Code(s): I10 - ESSENTIAL (PRIMARY) HYPERTENSION (7) HLD (hyperlipidemia) Code(s): E78.5 - HYPERLIPIDEMIA, UNSPECIFIED
[2017-06-29] MEDS: MONTELUKAST NA 10 MG TABLET PO SCH (22:16)
[2017-06-29] MEDS: MIRTAZAPINE 15 MG TABLET (FP) PO SCH (22:16)
[2017-06-29] MEDS: ATORVASTATIN CA 10 MG TABLET (FP) PO SCH (22:16)
[2017-06-29] MEDS: INSULIN DETEMIR 100 UNITS/ML MDV SQ SCH (22:17)
[2017-06-30] MEDS: metFORMIN HCL 500 MG TABLET (FP) PO SCH (06:38)
[2017-06-30] MEDS: INSULIN (NOVOLOG) ASPART 100 UNITS/ML 10ML VIAL SQ SCH ×3 (06:40→17:50)
[2017-06-30 07:47] LABS: BASO % 0.7 % (0-2.0); EOS % 2.8 % (0-4.5); HEMATOCRIT 39.6 % (32.4-45.2); LYMPH % 27.3 % (8-40); MCH 29.9 pg (25.7-33.7); MCHC 32.9 g/dl (32.0-36.0); MEAN CELL VOLUME 90.7 fl (80-96); MEAN PLT VOLUME 9.8 fl (7.5-11.1); MONO % 8.3 % (3.8-10.2); NEUT % 60.9 % (42.8-82.8); PLATELET COUNT 161 K/MM3 (134-434); RBC 4.36 M/mm3 (3.60-5.2); RDW 14.6 % (11.6-15.6); WHITE BLOOD COUNT 5.2 K/mm3 (4.0-10.0)
[2017-06-30] MEDS: ALBUTEROL SO4 0.083% IH SOL 2.5 MG/3 ML VIAL.NEB. NEB SCH ×4 (08:10→20:05)
[2017-06-30 08:13] LABS: ALBUMIN 3.2 g/dl (3.4-5.0); ANION GAP 14 (8-16); BLOOD UREA NITROGEN 18 mg/dL (7-18); CALCIUM 9.2 mg/dL (8.5-10.1); CHLORIDE 107 mmol/L (98-107); CO2 23 mmol/L (21-32); SGOT/AST 27 U/L (15-37); SGPT/ALT 31 U/L (12-78); SODIUM 144 mmol/L (136-145)
[2017-06-30 08:15] LABS: ALK PHOS 75 U/L (45-117); BILIRUBIN,TOTAL 0.3 mg/dL (0.2-1.0); CREATININE 0.9 mg/dL (0.55-1.02); GLUCOSE,RANDOM 172 mg/dL (74-106); TOT PROT 6.8 g/dl (6.4-8.2)
[2017-06-30] MEDS: ERTAPENEM SODIUM 1 GM in SODIUM CHLORIDE 100 ML IVPB SCH (10:45)
[2017-06-30] MEDS: CALCIUM 500MG/VIT-D 200 UNITS COMBO TABLET (FP) PO SCH (10:45)
[2017-06-30] MEDS: SOLIFENACIN SUCCINATE 5 MG TAB (FP) PO SCH (10:45)
[2017-06-30] MEDS: ENOXAPARIN NA (PORCINE) 40 MG/0.4 ML DISP.SYRIN SQ SCH (10:45)
[2017-06-30] MEDS: PREGABALIN 75 MG CAPSULE PO SCH ×2 (10:45→22:19)
[2017-06-30] MEDS: TIOTROPIUM BROMIDE 18 MCG/INH (DEVICE W/ 5 CAPSULES) IH SCH (10:46)
[2017-06-30] MEDS: LISINOPRIL 20 MG TABLET (FP) PO SCH (10:46)
[2017-06-30] MEDS: BUDESONIDE/FORMETEROL FUMARATE 160/4.5 mcg INHALER IH SCH ×2 (10:47→22:20)
[2017-06-30] MEDS ORDERED: PT OWN MED DRAWER 7, Y5N ONE (10:58)
[2017-06-30] MEDS ORDERED: guaiFENesin/CODEINE 10 ML UNIT-DOSE CUPS PO PRN (11:46)
--- NOTE | 2017-06-30 11:46 | PN ---
Progress Note (short form) - Note Progress Note: PULMONARY Reports persistent nonproductive cough but slightly improved. No fevers or chills. No chest pain. Last Vital Signs Temp Pulse Resp BP Pulse Ox 97.4 F L 53 L 20 146/72 98 06/30/17 08:06 06/30/17 08:06 06/30/17 08:06 06/30/17 08:06 06/29/17 21:00 Gen: NAD at rest Heart: RRR Lung: decreased breath sounds at the bases Abd: soft, nontender Ext: no edema CBC, BMP 06/30/17 07:27 06/30/17 07:27 Active Medications Albuterol Sulfate (Ventolin 0.083% Nebulizer Soln -) 1 amp NEB Q4H PRN PRN Reason: SHORT OF BREATH/WHEEZING Albuterol Sulfate (Ventolin 0.083% Nebulizer Soln -) 1 amp NEB RTID [facility] Last Admin: 06/30/17 08:25 Dose: Not Given Atorvastatin Calcium (Lipitor -) 10 mg PO [facility] Last Admin: 06/29/17 22:16 Dose: 10 mg Budesonide/Formoterol Fumarate (Symbicort 160/4.5mcg -) 2 puff IH BID [facility] Last Admin: 06/30/17 10:47 Dose: 2 puff Calcium Carbonate/Cholecalciferol (Os-Ray 500+D -) 1 tab PO DAILY [facility] Last Admin: 06/30/17 10:45 Dose: 1 tab Enoxaparin Sodium (Lovenox -) 40 mg SQ DAILY [facility] Last Admin: 06/30/17 10:45 Dose: 40 mg Ertapenem 1 gm/ Sodium (Chloride) 100 mls @ 200 mls/hr IVPB DAILY [facility] PRN Reason: Protocol Last Admin: 06/30/17 10:45 Dose: 200 mls/hr Insulin Aspart (Novolog Vial) 10 units SQ TIDAC [facility] Last Admin: 06/30/17 06:40 Dose: 10 units Insulin Detemir (Levemir Vial) 50 units SQ HS [facility] Last Admin: 06/29/17 22:17 Dose: 50 units Lisinopril (Prinivil) 20 mg PO DAILY [facility] Last Admin: 06/30/17 10:46 Dose: 20 mg Metformin HCl (Glucophage -) 500 mg PO DAILY@0700 [facility] Last Admin: 06/30/17 06:38 Dose: 500 mg Mirtazapine (Remeron -) 7.5 mg PO HS [facility] Last Admin: 06/29/17 22:16 Dose: 7.5 mg Montelukast Sodium (Singulair -) 10 mg PO HS [facility] Last Admin: 06/29/17 22:16 Dose: 10 mg Pregabalin (Lyrica -) 75 mg PO BID [facility] Last Admin: 06/30/17 10:45 Dose: 75 mg Solifenacin (Vesicare -) 5 mg PO DAILY [facility] Last Admin: 06/30/17 10:45 Dose: 5 mg Tiotropium [place] (Spiriva -) 1 puff IH DAILY [facility] Last Admin: 06/30/17 10:46 Dose: 1 puff A/P RLE DVT Asthma HTN DM - continue inhaled bronchodilators - continue singulair - will add cough suppressants - glucose control - recommend anticoagulation
--- NOTE | 2017-06-30 12:32 | PN ---
Progress Note (short form) - Note Progress Note: Neurology History of Present Illness The patient is a 56 year old female, with a significant past medical history of hypertension, diabetes mellitus, hypercholesterolemia, who presented to the emergency department for evaluation of DVT to the right leg found on ultrasound by her manager business information Dr. Romeo. The patient states she has noticed her right leg has been appearing more swollen than the left leg and reports she has a history of DVT's in the past. The patient also states she was recently treated for pneumonia and had some mild shortness of breath, however, is not having any now. The patient reports she used to take Coumadin but was taken off approx. one year ago. I was consulted due to tingling sensations in her lower extremities. States they have been ongoing. Poor historian and when I asked her about neurontin/gabapentin she was not sure if she was on medication on the past. Gabapentin is listed on allergies but she is not sure if she was ever on it. She does have underlying DM and with likely diabetic neuropathy. Started on Lyrica and reports some improvement in symptoms this AM. Says she feels better and less tingling. No side effects with the medication. Active Medications Albuterol Sulfate (Ventolin 0.083% Nebulizer Soln -) 1 amp NEB Q4H PRN PRN Reason: SHORT OF BREATH/WHEEZING Albuterol Sulfate (Ventolin 0.083% Nebulizer Soln -) 1 amp NEB RTID [facility] Last Admin: 06/30/17 08:25 Dose: Not Given Atorvastatin Calcium (Lipitor -) 10 mg PO HS [facility] Last Admin: 06/29/17 22:16 Dose: 10 mg Budesonide/Formoterol Fumarate (Symbicort 160/4.5mcg -) 2 puff IH BID [facility] Last Admin: 06/30/17 10:47 Dose: 2 puff Calcium Carbonate/Cholecalciferol (Os-Ray 500+D -) 1 tab PO DAILY [facility] Last Admin: 06/30/17 10:45 Dose: 1 tab Enoxaparin Sodium (Lovenox -) 40 mg SQ DAILY [facility] Last Admin: 06/30/17 10:45 Dose: 40 mg Guaifenesin/Codeine Phosphate (Robitussin Ac -) 10 ml PO Q8H PRN PRN Reason: COUGH Ertapenem 1 gm/ Sodium (Chloride) 100 mls @ 200 mls/hr IVPB DAILY [facility] PRN Reason: Protocol Last Admin: 06/30/17 10:45 Dose: 200 mls/hr Insulin Aspart (Novolog Vial) 10 units SQ TIDAC [facility] Last Admin: 06/30/17 11:48 Dose: Not Given Insulin Detemir (Levemir Vial) 50 units SQ HS [facility] Last Admin: 06/29/17 22:17 Dose: 50 units Lisinopril (Prinivil) 20 mg PO DAILY [facility] Last Admin: 06/30/17 10:46 Dose: 20 mg Metformin HCl (Glucophage -) 500 mg PO DAILY@0700 [facility] Last Admin: 06/30/17 06:38 Dose: 500 mg Mirtazapine (Remeron -) 7.5 mg PO [facility] Last Admin: 06/29/17 22:16 Dose: 7.5 mg Montelukast Sodium (Singulair -) 10 mg PO HS [facility] Last Admin: 06/29/17 22:16 Dose: 10 mg Pregabalin (Lyrica -) 75 mg PO BID [facility] Last Admin: 06/30/17 10:45 Dose: 75 mg Solifenacin (Vesicare -) 5 mg PO DAILY [facility] Last Admin: 06/30/17 10:45 Dose: 5 mg Tiotropium [place] (Spiriva -) 1 puff IH DAILY [facility] Last Admin: 06/30/17 10:46 Dose: 1 puff *Physical Exam Vital Signs Temperature 97.4 F L 06/30/17 08:06 Pulse Rate 53 L 06/30/17 08:06 Respiratory Rate 20 06/30/17 08:06 Blood Pressure 146/72 06/30/17 08:06 O2 Sat by Pulse Oximetry (%) 98 06/29/17 21:00 GENERAL: Well-appearing, well-nourished. No apparent distress. HEENT: Normocephalic, atraumatic. PERRL, EOM intact. CARDIOVASCULAR: Normal S1, S2. Regular rate and rhythm. PULMONARY: Clear to auscultation bilaterally. ABDOMEN: Soft, non-distended, non-tender. EXTREMITIES: (+) Right leg is slightly more swollen than left around the calf region. No calf tenderness, cords or erythema. Normal ROM in all four extremities. No gross deformities. SKIN: Warm, dry. No rash NEUROLOGICAL: CN intact, strenght intact, No focal neurological deficits, sensory slight decrease in b/l LE, gait deferred - RADIOLOGY Radiograph Interpretation: EXAM#: TYPE/EXAM: RESULT: [id number] US/DUPLEX VASCUL US-2LEGS INDICATION: History of deep vein thrombosis and IVC filter. Clinical suspicion for lower extremity deep vein thrombosis. COMPARISON: 07/11/2016 left lower extremity duplex and 12/15/2014 bilateral lower extremity duplex. IMPRESSION: 1. Right popliteal vein thrombus as described above is likely chronic. Occlusive thrombosis of the right lesser saphenous vein. 2. No evidence of left lower extremity deep vein thrombosis, as above. [id number] RAD/CHEST PA LAT HISTORY PROVIDED: Rule out infiltrate PA and lateral projections of the chest are submitted. The heart size is within normal limits. The lung evans are free of pulmonary infiltrates or pleural effusions. There is tortuosity and calcification of the thoracic aorta and degenerative changes of the thoracic spine. IMPRESSION: No acute disease. CBCD WBC 5.2 K/mm3 (4.0-10.0) 06/30/17 07:27 RBC 4.36 M/mm3 (3.60-5.2) 06/30/17 07:27 Hgb 13.0 GM/dL (10.7-15.3) 06/30/17 07:27 Hct 39.6 % (32.4-45.2) 06/30/17 07:27 MCV 90.7 fl (80-96) 06/30/17 07:27 MCHC 32.9 g/dl (32.0-36.0) 06/30/17 07:27 RDW 14.6 % (11.6-15.6) 06/30/17 07:27 Plt Count 161 K/MM3 (134-434) 06/30/17 07:27 MPV 9.8 fl (7.5-11.1) 06/30/17 07:27 CMP Sodium 144 mmol/L (136-145) 06/30/17 07:27 Potassium 4.0 mmol/L (3.5-5.1) 06/30/17 07:27 Chloride 107 mmol/L (98-107) 06/30/17 07:27 Carbon Dioxide 23 mmol/L (21-32) 06/30/17 07:27 Anion Gap 14 (8-16) 06/30/17 07:27 BUN 18 mg/dL (7-18) 06/30/17 07:27 Creatinine 0.9 mg/dL (0.55-1.02) 06/30/17 07:27 Creat Clearance w eGFR > 60 (>60) 06/30/17 07:27 Calcium 9.2 mg/dL (8.5-10.1) 06/30/17 07:27 Total Bilirubin 0.3 mg/dL (0.2-1.0) 06/30/17 07:27 AST 27 U/L (15-37) 06/30/17 07:27 ALT 31 U/L (12-78) 06/30/17 07:27 Alkaline Phosphatase 75 U/L (45-117) 06/30/17 07:27 Total Protein 6.8 g/dl (6.4-8.2) 06/30/17 07:27 Albumin 3.2 g/dl (3.4-5.0) L 06/30/17 07:27 Medical Decision Making 56 year old female, with a significant past medical history of hypertension, diabetes mellitus, hypercholesterolemia, who presented to the emergency department for evaluation of DVT to the right leg found on ultrasound by her manager business information Dr. Romeo. The patient states she has noticed her right leg has been appearing more swollen than the left leg and reports she has a history of DVT's in the past. The patient also states she was recently treated for pneumonia and had some mild shortness of breath, however, is not having any now. The patient reports she used to take Coumadin but was taken off approx. one year ago. I was consulted due to tingling sensations in her lower extremities. States they have been ongoing. Poor historian and when I asked her about neurontin/gabapentin she was not sure if she was on medication on the past. Gabapentin is listed on allergies but she is not sure if she was ever on it. She does have underlying DM and with likely diabetic neuropathy. Will start on Lyrica 75mg twice daily since Gabapentin allergy listed. Reports improvement in symptoms, less tingling, no side effects. Recommend continuing. Tight glycemic control recommended and most beneficial to diminishing neuropathy.
--- NOTE | 2017-06-30 13:28 | PN ---
Progress Note, Physician History of Present Illness: Pt doing relatively well. Denies fever/chills. Has some dry cough with deep inhalation but no shortness of breath/chest pain. - Current Medication List Current Medications: Active Medications Albuterol Sulfate (Ventolin 0.083% Nebulizer Soln -) 1 amp NEB Q4H PRN PRN Reason: SHORT OF BREATH/WHEEZING Albuterol Sulfate (Ventolin 0.083% Nebulizer Soln -) 1 amp NEB RTID [facility] Last Admin: 06/30/17 08:25 Dose: Not Given Atorvastatin Calcium (Lipitor -) 10 mg PO [facility] Last Admin: 06/29/17 22:16 Dose: 10 mg Budesonide/Formoterol Fumarate (Symbicort 160/4.5mcg -) 2 puff IH BID [facility] Last Admin: 06/30/17 10:47 Dose: 2 puff Calcium Carbonate/Cholecalciferol (Os-Ray 500+D -) 1 tab PO DAILY [facility] Last Admin: 06/30/17 10:45 Dose: 1 tab Enoxaparin Sodium (Lovenox -) 40 mg SQ DAILY [facility] Last Admin: 06/30/17 10:45 Dose: 40 mg Guaifenesin/Codeine Phosphate (Robitussin Ac -) 10 ml PO Q8H PRN PRN Reason: COUGH Ertapenem 1 gm/ Sodium (Chloride) 100 mls @ 200 mls/hr IVPB DAILY [facility] PRN Reason: Protocol Last Admin: 06/30/17 10:45 Dose: 200 mls/hr Insulin Aspart (Novolog Vial) 10 units SQ TIDAC [facility] Last Admin: 06/30/17 11:48 Dose: Not Given Insulin Detemir (Levemir Vial) 50 units SQ [facility] Last Admin: 06/29/17 22:17 Dose: 50 units Lisinopril (Prinivil) 20 mg PO DAILY [facility] Last Admin: 06/30/17 10:46 Dose: 20 mg Metformin HCl (Glucophage -) 500 mg PO DAILY@0700 [facility] Last Admin: 06/30/17 06:38 Dose: 500 mg Mirtazapine (Remeron -) 7.5 mg PO [facility] Last Admin: 06/29/17 22:16 Dose: 7.5 mg Montelukast Sodium (Singulair -) 10 mg PO [facility] Last Admin: 06/29/17 22:16 Dose: 10 mg Pregabalin (Lyrica -) 75 mg PO BID [facility] Last Admin: 06/30/17 10:45 Dose: 75 mg Solifenacin (Vesicare -) 5 mg PO DAILY [facility] Last Admin: 06/30/17 10:45 Dose: 5 mg Tiotropium [place] (Spiriva -) 1 puff IH DAILY [facility] Last Admin: 06/30/17 10:46 Dose: 1 puff - Objective Vital Signs: Vital Signs Temperature 97.4 F L 06/30/17 08:06 Pulse Rate 53 L 06/30/17 08:06 Respiratory Rate 20 06/30/17 08:06 Blood Pressure 146/72 06/30/17 08:06 O2 Sat by Pulse Oximetry (%) 98 06/29/17 21:00 Constitutional: Yes: No Distress, Calm Cardiovascular: Yes: Regular Rate and Rhythm Respiratory: Yes: Regular Gastrointestinal: Yes: Normal Bowel Sounds, Soft Extremities: Yes: Other (mild RLE edema/ no tenderness) Neurological: Yes: Alert, Oriented Labs: CBC, BMP 06/30/17 07:27 06/30/17 07:27 INR, PTT INR 1.26 (0.82-1.09) H 06/25/17 21:15 Problem List - Problems (1) Asthma Code(s): J45.909 - UNSPECIFIED ASTHMA, UNCOMPLICATED (2) DVT (deep venous thrombosis) Code(s): I82.409 - ACUTE EMBOLISM AND THOMBOS UNSP DEEP VN UNSP LOWER EXTREMITY Qualifiers: DVT location: lower extremity Chronicity: unspecified Laterality: right (3) Diabetes Code(s): E11.9 - TYPE 2 DIABETES MELLITUS WITHOUT COMPLICATIONS (4) HTN (hypertension) Code(s): I10 - ESSENTIAL (PRIMARY) HYPERTENSION (5) Neuropathy due to type 2 diabetes mellitus Code(s): E11.40 - TYPE 2 DIABETES MELLITUS WITH DIABETIC NEUROPATHY, UNSP (6) Obesity (BMI 30-39.9) Code(s): E66.9 - OBESITY, UNSPECIFIED Assessment/Plan ESBL (+) E. coli UTI RLE DVT Hx of DVT/PE s/p IVC filter Asthma DM - continue Ertapenem - monitor vitals, pt currently stable
--- NOTE | 2017-06-30 16:57 | PN ---
Progress Note, Physician - Current Medication List Current Medications: Active Medications Albuterol Sulfate (Ventolin 0.083% Nebulizer Soln -) 1 amp NEB Q4H PRN PRN Reason: SHORT OF BREATH/WHEEZING Albuterol Sulfate (Ventolin 0.083% Nebulizer Soln -) 1 amp NEB RTID [facility] Last Admin: 06/30/17 14:25 Dose: 1 amp Atorvastatin Calcium (Lipitor -) 10 mg PO [facility] Last Admin: 06/29/17 22:16 Dose: 10 mg Budesonide/Formoterol Fumarate (Symbicort 160/4.5mcg -) 2 puff IH BID [facility] Last Admin: 06/30/17 10:47 Dose: 2 puff Calcium Carbonate/Cholecalciferol (Os-Ray 500+D -) 1 tab PO DAILY [facility] Last Admin: 06/30/17 10:45 Dose: 1 tab Enoxaparin Sodium (Lovenox -) 40 mg SQ DAILY [facility] Last Admin: 06/30/17 10:45 Dose: 40 mg Guaifenesin/Codeine Phosphate (Robitussin Ac -) 10 ml PO Q8H PRN PRN Reason: COUGH Ertapenem 1 gm/ Sodium (Chloride) 100 mls @ 200 mls/hr IVPB DAILY [facility] PRN Reason: Protocol Last Admin: 06/30/17 10:45 Dose: 200 mls/hr Insulin Aspart (Novolog Vial) 10 units SQ TIDAC [facility] Last Admin: 06/30/17 11:48 Dose: Not Given Insulin Detemir (Levemir Vial) 50 units SQ [facility] Last Admin: 06/29/17 22:17 Dose: 50 units Lisinopril (Prinivil) 20 mg PO DAILY [facility] Last Admin: 06/30/17 10:46 Dose: 20 mg Metformin HCl (Glucophage -) 500 mg PO DAILY@0700 [facility] Last Admin: 06/30/17 06:38 Dose: 500 mg Mirtazapine (Remeron -) 7.5 mg PO [facility] Last Admin: 06/29/17 22:16 Dose: 7.5 mg Montelukast Sodium (Singulair -) 10 mg PO [facility] Last Admin: 06/29/17 22:16 Dose: 10 mg Pregabalin (Lyrica -) 75 mg PO BID [facility] Last Admin: 06/30/17 10:45 Dose: 75 mg Solifenacin (Vesicare -) 5 mg PO DAILY [facility] Last Admin: 06/30/17 10:45 Dose: 5 mg Tiotropium [place] (Spiriva -) 1 puff IH DAILY [facility] Last Admin: 06/30/17 10:46 Dose: 1 puff - Objective Vital Signs: Vital Signs Temperature 97.5 F L 06/30/17 15:14 Pulse Rate 65 06/30/17 15:14 Respiratory Rate 18 06/30/17 15:14 Blood Pressure 122/85 06/30/17 15:14 O2 Sat by Pulse Oximetry (%) 98 06/29/17 21:00 Labs: CBC, BMP 06/30/17 07:27 06/30/17 07:27 INR, PTT INR 1.26 (0.82-1.09) H 06/25/17 21:15 Problem List - Problems (1) DVT (deep venous thrombosis) Code(s): I82.409 - ACUTE EMBOLISM AND THOMBOS UNSP DEEP VN UNSP LOWER EXTREMITY Qualifiers: DVT location: lower extremity Chronicity: unspecified Laterality: right (2) Asthma Code(s): J45.909 - UNSPECIFIED ASTHMA, UNCOMPLICATED (3) Chronic renal insufficiency, stage III (moderate) Code(s): N18.3 - CHRONIC KIDNEY DISEASE, STAGE 3 (MODERATE) (4) GERD (gastroesophageal reflux disease) Code(s): K21.9 - GASTRO-ESOPHAGEAL REFLUX DISEASE WITHOUT ESOPHAGITIS Qualifiers: Esophagitis presence: without esophagitis Qualified Code(s): K21.9 - Gastro -esophageal reflux disease without esophagitis (5) Diabetes Code(s): E11.9 - TYPE 2 DIABETES MELLITUS WITHOUT COMPLICATIONS (6) HTN (hypertension) Code(s): I10 - ESSENTIAL (PRIMARY) HYPERTENSION (7) HLD (hyperlipidemia) Code(s): E78.5 - HYPERLIPIDEMIA, UNSPECIFIED
[2017-06-30] MEDS: MONTELUKAST NA 10 MG TABLET PO SCH (22:19)
[2017-06-30] MEDS: INSULIN DETEMIR 100 UNITS/ML MDV SQ SCH (22:19)
[2017-06-30] MEDS: MIRTAZAPINE 15 MG TABLET (FP) PO SCH (22:19)
[2017-06-30] MEDS: ATORVASTATIN CA 10 MG TABLET (FP) PO SCH (22:19)
[2017-07-01] MEDS: ALBUTEROL SO4 0.083% IH SOL 2.5 MG/3 ML VIAL.NEB. NEB SCH ×3 (07:30→20:30)
[2017-07-01] MEDS ORDERED: INSULIN (NOVOLOG) ASPART 100 UNITS/ML 10ML VIAL ONE (07:56)
[2017-07-01] MEDS: INSULIN (NOVOLOG) ASPART 100 UNITS/ML 10ML VIAL SQ SCH ×3 (08:07→18:00)
[2017-07-01] MEDS: metFORMIN HCL 500 MG TABLET (FP) PO SCH (08:07)
--- NOTE | 2017-07-01 09:20 | PN ---
Progress Note (short form) - Note Progress Note: Neurology History of Present Illness The patient is a 56 year old female, with a significant past medical history of hypertension, diabetes mellitus, hypercholesterolemia, who presented to the emergency department for evaluation of DVT to the right leg found on ultrasound by her crystal cutter Dr. Romeo. The patient states she has noticed her right leg has been appearing more swollen than the left leg and reports she has a history of DVT's in the past. The patient also states she was recently treated for pneumonia and had some mild shortness of breath, however, is not having any now. The patient reports she used to take Coumadin but was taken off approx. one year ago. I was consulted due to tingling sensations in her lower extremities. States they have been ongoing. Poor historian and when I asked her about neurontin/gabapentin she was not sure if she was on medication on the past. Gabapentin is listed on allergies but she is not sure if she was ever on it. She does have underlying DM and with likely diabetic neuropathy. Started on Lyrica and reports some improvement in symptoms over the weekend. Feels better and less tingling. No side effects with the medication. Active Medications Albuterol Sulfate (Ventolin 0.083% Nebulizer Soln -) 1 amp NEB Q4H PRN PRN Reason: SHORT OF BREATH/WHEEZING Albuterol Sulfate (Ventolin 0.083% Nebulizer Soln -) 1 amp NEB RTID [facility] Last Admin: 07/01/17 07:30 Dose: 1 amp Atorvastatin Calcium (Lipitor -) 10 mg PO HS [facility] Last Admin: 06/30/17 22:19 Dose: 10 mg Budesonide/Formoterol Fumarate (Symbicort 160/4.5mcg -) 2 puff IH BID [facility] Last Admin: 06/30/17 22:20 Dose: 2 puff Calcium Carbonate/Cholecalciferol (Os-Ray 500+D -) 1 tab PO DAILY [facility] Last Admin: 06/30/17 10:45 Dose: 1 tab Enoxaparin Sodium (Lovenox -) 40 mg SQ DAILY [facility] Last Admin: 06/30/17 10:45 Dose: 40 mg Guaifenesin/Codeine Phosphate (Robitussin Ac -) 10 ml PO Q8H PRN PRN Reason: COUGH Ertapenem 1 gm/ Sodium (Chloride) 100 mls @ 200 mls/hr IVPB DAILY [facility] PRN Reason: Protocol Last Admin: 06/30/17 10:45 Dose: 200 mls/hr Insulin Aspart (Novolog Vial) 10 units SQ TIDAC [facility] Last Admin: 07/01/17 08:07 Dose: 10 units Insulin Detemir (Levemir Vial) 50 units SQ HS [facility] Last Admin: 06/30/17 22:19 Dose: 50 units Lisinopril (Prinivil) 20 mg PO DAILY [facility] Last Admin: 06/30/17 10:46 Dose: 20 mg Metformin HCl (Glucophage -) 500 mg PO DAILY@0700 [facility] Last Admin: 07/01/17 08:07 Dose: 500 mg Mirtazapine (Remeron -) 7.5 mg PO [facility] Last Admin: 06/30/17 22:19 Dose: 7.5 mg Montelukast Sodium (Singulair -) 10 mg PO HS [facility] Last Admin: 06/30/17 22:19 Dose: 10 mg Pregabalin (Lyrica -) 75 mg PO BID [facility] Last Admin: 06/30/17 22:19 Dose: 75 mg Solifenacin (Vesicare -) 5 mg PO DAILY [facility] Last Admin: 06/30/17 10:45 Dose: 5 mg Tiotropium [place] (Spiriva -) 1 puff IH DAILY [facility] Last Admin: 06/30/17 10:46 Dose: 1 puff *Physical Exam Vital Signs Temperature 98.1 F 07/01/17 01:00 Pulse Rate 53 L 07/01/17 01:00 Respiratory Rate 20 07/01/17 01:00 Blood Pressure 122/66 07/01/17 01:00 O2 Sat by Pulse Oximetry (%) 96 06/30/17 21:00 GENERAL: Well-appearing, well-nourished. No apparent distress. HEENT: Normocephalic, atraumatic. PERRL, EOM intact. CARDIOVASCULAR: Normal S1, S2. Regular rate and rhythm. PULMONARY: Clear to auscultation bilaterally. ABDOMEN: Soft, non-distended, non-tender. EXTREMITIES: (+) Right leg is slightly more swollen than left around the calf region. No calf tenderness, cords or erythema. Normal ROM in all four extremities. No gross deformities. SKIN: Warm, dry. No rash NEUROLOGICAL: CN intact, strenght intact, No focal neurological deficits, sensory slight decrease in b/l LE, gait deferred - RADIOLOGY Radiograph Interpretation: EXAM#: TYPE/EXAM: RESULT: [id number] US/DUPLEX VASCUL US-2LEGS INDICATION: History of deep vein thrombosis and IVC filter. Clinical suspicion for lower extremity deep vein thrombosis. COMPARISON: 07/11/2016 left lower extremity duplex and 12/15/2014 bilateral lower extremity duplex. IMPRESSION: 1. Right popliteal vein thrombus as described above is likely chronic. Occlusive thrombosis of the right lesser saphenous vein. 2. No evidence of left lower extremity deep vein thrombosis, as above. [id number] RAD/CHEST PA LAT HISTORY PROVIDED: Rule out infiltrate PA and lateral projections of the chest are submitted. The heart size is within normal limits. The lung evans are free of pulmonary infiltrates or pleural effusions. There is tortuosity and calcification of the thoracic aorta and degenerative changes of the thoracic spine. IMPRESSION: No acute disease. CBCD WBC 5.2 K/mm3 (4.0-10.0) 06/30/17 07:27 RBC 4.36 M/mm3 (3.60-5.2) 06/30/17 07:27 Hgb 13.0 GM/dL (10.7-15.3) 06/30/17 07:27 Hct 39.6 % (32.4-45.2) 06/30/17 07:27 MCV 90.7 fl (80-96) 06/30/17 07:27 MCHC 32.9 g/dl (32.0-36.0) 06/30/17 07:27 RDW 14.6 % (11.6-15.6) 06/30/17 07:27 Plt Count 161 K/MM3 (134-434) 06/30/17 07:27 MPV 9.8 fl (7.5-11.1) 06/30/17 07:27 CMP Sodium 144 mmol/L (136-145) 06/30/17 07:27 Potassium 4.0 mmol/L (3.5-5.1) 06/30/17 07:27 Chloride 107 mmol/L (98-107) 06/30/17 07:27 Carbon Dioxide 23 mmol/L (21-32) 06/30/17 07:27 Anion Gap 14 (8-16) 06/30/17 07:27 BUN 18 mg/dL (7-18) 06/30/17 07:27 Creatinine 0.9 mg/dL (0.55-1.02) 06/30/17 07:27 Creat Clearance w eGFR > 60 (>60) 06/30/17 07:27 Calcium 9.2 mg/dL (8.5-10.1) 06/30/17 07:27 Total Bilirubin 0.3 mg/dL (0.2-1.0) 06/30/17:27 AST 27 U/L (15-37) 06/30/17:27 ALT 31 U/L (12-78) 06/30/17:27 Alkaline Phosphatase 75 U/L (45-117) 06/30/17: Total Protein 6.8 g/dl (6.4-8.2) 06/30/17 07: Albumin 3.2 g/dl (3.4-5.0) L 06/30/17 07:27 Medical Decision Making 56 year old female, with a significant past medical history of hypertension, diabetes mellitus, hypercholesterolemia, who presented to the emergency department for evaluation of DVT to the right leg found on ultrasound by her crystal cutter Dr. Romeo. The patient states she has noticed her right leg has been appearing more swollen than the left leg and reports she has a history of DVT's in the past. The patient also states she was recently treated for pneumonia and had some mild shortness of breath, however, is not having any now. The patient reports she used to take Coumadin but was taken off approx. one year ago. I was consulted due to tingling sensations in her lower extremities. States they have been ongoing. Poor historian and when I asked her about neurontin/gabapentin she was not sure if she was on medication on the past. Gabapentin is listed on allergies but she is not sure if she was ever on it. She does have underlying DM and with likely diabetic neuropathy. On Lyrica 75mg twice daily since Gabapentin allergy listed. Reports improvement in symptoms, less tingling, no side effects. Recommend continuing. Tight glycemic control recommended and most beneficial to diminishing neuropathy.
[2017-07-01] MEDS ORDERED: PT OWN MED DRAWER 7, Y5N ONE ×3 (09:58→11:12)
[2017-07-01] MEDS: ERTAPENEM SODIUM 1 GM in SODIUM CHLORIDE 100 ML IVPB SCH (10:03)
[2017-07-01] MEDS: BUDESONIDE/FORMETEROL FUMARATE 160/4.5 mcg INHALER IH SCH ×2 (10:04→22:03)
[2017-07-01] MEDS: CALCIUM 500MG/VIT-D 200 UNITS COMBO TABLET (FP) PO SCH (10:04)
[2017-07-01] MEDS: ENOXAPARIN NA (PORCINE) 40 MG/0.4 ML DISP.SYRIN SQ SCH (10:04)
[2017-07-01] MEDS: LISINOPRIL 20 MG TABLET (FP) PO SCH (10:04)
[2017-07-01] MEDS: TIOTROPIUM BROMIDE 18 MCG/INH (DEVICE W/ 5 CAPSULES) IH SCH (10:04)
[2017-07-01] MEDS: PREGABALIN 75 MG CAPSULE PO SCH ×2 (10:04→22:01)
[2017-07-01] MEDS: SOLIFENACIN SUCCINATE 5 MG TAB (FP) PO SCH (10:05)
--- NOTE | 2017-07-01 11:19 | PN ---
Progress Note (short form) - Note Progress Note: PULMONARY States coughing is improving with current regimen. No fevers or chills. No chest pain. Last Vital Signs Temp Pulse Resp BP Pulse Ox 98.8 F 64 20 107/59 96 07/01/17 09:00 07/01/17 09:00 07/01/17 09:00 07/01/17 09:00 06/30/17 21:00 Gen: NAD at rest Heart: RRR Lung: decreased breath sounds at the bases Abd: soft, nontender Ext: no edema CBC, BMP 06/30/17 07:27 06/30/17 07:27 Active Medications Albuterol Sulfate (Ventolin 0.083% Nebulizer Soln -) 1 amp NEB Q4H PRN PRN Reason: SHORT OF BREATH/WHEEZING Albuterol Sulfate (Ventolin 0.083% Nebulizer Soln -) 1 amp NEB RTID [facility] Last Admin: 07/01/17 07:30 Dose: 1 amp Atorvastatin Calcium (Lipitor -) 10 mg PO [facility] Last Admin: 06/30/17 22:19 Dose: 10 mg Budesonide/Formoterol Fumarate (Symbicort 160/4.5mcg -) 2 puff IH BID [facility] Last Admin: 07/01/17 10:04 Dose: 2 puff Calcium Carbonate/Cholecalciferol (Os-Ray 500+D -) 1 tab PO DAILY [facility] Last Admin: 07/01/17 10:04 Dose: 1 tab Enoxaparin Sodium (Lovenox -) 40 mg SQ DAILY [facility] Last Admin: 07/01/17 10:04 Dose: 40 mg Guaifenesin/Codeine Phosphate (Robitussin Ac -) 10 ml PO Q8H PRN PRN Reason: COUGH Ertapenem 1 gm/ Sodium (Chloride) 100 mls @ 200 mls/hr IVPB DAILY [facility] PRN Reason: Protocol Last Admin: 07/01/17 10:03 Dose: 200 mls/hr Insulin Aspart (Novolog Vial) 10 units SQ TIDAC [facility] Last Admin: 07/01/17 08:07 Dose: 10 units Insulin Detemir (Levemir Vial) 50 units SQ HS [facility] Last Admin: 06/30/17 22:19 Dose: 50 units Lisinopril (Prinivil) 20 mg PO DAILY [facility] Last Admin: 07/01/17 10:04 Dose: 20 mg Metformin HCl (Glucophage -) 500 mg PO DAILY@0700 [facility] Last Admin: 07/01/17 08:07 Dose: 500 mg Mirtazapine (Remeron -) 7.5 mg PO HS [facility] Last Admin: 06/30/17 22:19 Dose: 7.5 mg Montelukast Sodium (Singulair -) 10 mg PO HS [facility] Last Admin: 06/30/17 22:19 Dose: 10 mg Pregabalin (Lyrica -) 75 mg PO BID [facility] Last Admin: 07/01/17 10:04 Dose: 75 mg Solifenacin (Vesicare -) 5 mg PO DAILY [facility] Last Admin: 07/01/17 10:05 Dose: 5 mg Tiotropium [place] (Spiriva -) 1 puff IH DAILY [facility] Last Admin: 07/01/17 10:04 Dose: 1 puff A/P RLE DVT Asthma HTN DM - continue inhaled bronchodilators - continue singulair - cough suppressants - glucose control - will need to weight anticoagulation vs fall risk
--- NOTE | 2017-07-01 13:24 | PN ---
Progress Note, Physician History of Present Illness: stable no new issues improving - Current Medication List Current Medications: Active Medications Albuterol Sulfate (Ventolin 0.083% Nebulizer Soln -) 1 amp NEB Q4H PRN PRN Reason: SHORT OF BREATH/WHEEZING Albuterol Sulfate (Ventolin 0.083% Nebulizer Soln -) 1 amp NEB RTID [facility] Last Admin: 07/01/17 07:30 Dose: 1 amp Atorvastatin Calcium (Lipitor -) 10 mg PO [facility] Last Admin: 06/30/17 22:19 Dose: 10 mg Budesonide/Formoterol Fumarate (Symbicort 160/4.5mcg -) 2 puff IH BID [facility] Last Admin: 07/01/17 10:04 Dose: 2 puff Calcium Carbonate/Cholecalciferol (Os-Ray 500+D -) 1 tab PO DAILY [facility] Last Admin: 07/01/17 10:04 Dose: 1 tab Enoxaparin Sodium (Lovenox -) 40 mg SQ DAILY [facility] Last Admin: 07/01/17 10:04 Dose: 40 mg Guaifenesin/Codeine Phosphate (Robitussin Ac -) 10 ml PO Q8H PRN PRN Reason: COUGH Ertapenem 1 gm/ Sodium (Chloride) 100 mls @ 200 mls/hr IVPB DAILY [facility] PRN Reason: Protocol Last Admin: 07/01/17 10:03 Dose: 200 mls/hr Insulin Aspart (Novolog Vial) 10 units SQ TIDAC [facility] Last Admin: 07/01/17 12:10 Dose: 10 units Insulin Detemir (Levemir Vial) 50 units SQ [facility] Last Admin: 06/30/17 22:19 Dose: 50 units Lisinopril (Prinivil) 20 mg PO DAILY [facility] Last Admin: 07/01/17 10:04 Dose: 20 mg Metformin HCl (Glucophage -) 500 mg PO DAILY@0700 [facility] Last Admin: 07/01/17 08:07 Dose: 500 mg Mirtazapine (Remeron -) 7.5 mg PO [facility] Last Admin: 06/30/17 22:19 Dose: 7.5 mg Montelukast Sodium (Singulair -) 10 mg PO [facility] Last Admin: 06/30/17 22:19 Dose: 10 mg Pregabalin (Lyrica -) 75 mg PO BID [facility] Last Admin: 07/01/17 10:04 Dose: 75 mg Solifenacin (Vesicare -) 5 mg PO DAILY [facility] Last Admin: 07/01/17 10:05 Dose: 5 mg Tiotropium [place] (Spiriva -) 1 puff IH DAILY [facility] Last Admin: 07/01/17 10:04 Dose: 1 puff - Objective Vital Signs: Vital Signs Temperature 98.8 F 07/01/17 09:00 Pulse Rate 64 07/01/17 09:00 Respiratory Rate 20 07/01/17 09:00 Blood Pressure 107/59 07/01/17 09:00 O2 Sat by Pulse Oximetry (%) 96 06/30/17 21:00 Constitutional: Yes: No Distress, Calm, Obese Cardiovascular: Yes: Regular Rate and Rhythm Respiratory: Yes: Regular, Poor Air Entry Gastrointestinal: Yes: Normal Bowel Sounds, Soft Musculoskeletal: Yes: WNL Extremities: Yes: WNL Neurological: Yes: Alert, Oriented Psychiatric: Yes: Alert, Oriented Labs: CBC, BMP 06/30/17 07:27 06/30/17 07:27 INR, PTT INR 1.26 (0.82-1.09) H 06/25/17 21:15 Assessment/Plan Problem List - Problems (1) DVT (deep venous thrombosis) Code(s): I82.409 - ACUTE EMBOLISM AND THOMBOS UNSP DEEP VN UNSP LOWER EXTREMITY Qualifiers: DVT location: lower extremity Chronicity: unspecified Laterality: right (2) Bronchitis Code(s): J40 - BRONCHITIS, NOT SPECIFIED ACUTE OR CHRONIC (3) Neuropathy due to type 2 diabetes mellitus Code(s): E11.40 - TYPE 2 DIABETES MELLITUS WITH DIABETIC NEUROPATHY, UNSP (4) Obesity (BMI 30-39.9) Code(s): E66.9 - OBESITY, UNSPECIFIED (5) Asthma Code(s): J45.909 - UNSPECIFIED ASTHMA, UNCOMPLICATED (6) Diabetes 1.5, managed as type 1 Code(s): E10.9 - TYPE 1 DIABETES MELLITUS WITHOUT COMPLICATIONS 7 esbl uti plan continue current mgmt continue abx rest as per primary team patient improving
[2017-07-01] MEDS ORDERED: INSULIN DETEMIR 100 UNITS/ML MDV SQ ONE (16:57)
--- NOTE | 2017-07-01 19:05 | PN ---
Progress Note, Physician - Current Medication List Current Medications: Active Medications Albuterol Sulfate (Ventolin 0.083% Nebulizer Soln -) 1 amp NEB RTID [facility] Last Admin: 07/01/17 13:54 Dose: 1 amp Atorvastatin Calcium (Lipitor -) 10 mg PO HS [facility] Last Admin: 06/30/17 22:19 Dose: 10 mg Budesonide/Formoterol Fumarate (Symbicort 160/4.5mcg -) 2 puff IH BID [facility] Last Admin: 07/01/17 10:04 Dose: 2 puff Calcium Carbonate/Cholecalciferol (Os-Ray 500+D -) 1 tab PO DAILY [facility] Last Admin: 07/01/17 10:04 Dose: 1 tab Enoxaparin Sodium (Lovenox -) 40 mg SQ DAILY [facility] Last Admin: 07/01/17 10:04 Dose: 40 mg Guaifenesin/Codeine Phosphate (Robitussin Ac -) 10 ml PO Q8H PRN PRN Reason: COUGH Ertapenem 1 gm/ Sodium (Chloride) 100 mls @ 200 mls/hr IVPB DAILY [facility] PRN Reason: Protocol Last Admin: 07/01/17 10:03 Dose: 200 mls/hr Insulin Aspart (Novolog Vial) 10 units SQ TIDAC [facility] Last Admin: 07/01/17 12:10 Dose: 10 units Insulin Detemir (Levemir Vial) 50 units SQ [facility] Last Admin: 06/30/17 22:19 Dose: 50 units Lisinopril (Prinivil) 20 mg PO DAILY [facility] Last Admin: 07/01/17 10:04 Dose: 20 mg Metformin HCl (Glucophage -) 500 mg PO DAILY@0700 [facility] Last Admin: 07/01/17 08:07 Dose: 500 mg Mirtazapine (Remeron -) 7.5 mg PO [facility] Last Admin: 06/30/17 22:19 Dose: 7.5 mg Montelukast Sodium (Singulair -) 10 mg PO [facility] Last Admin: 06/30/17 22:19 Dose: 10 mg Pregabalin (Lyrica -) 75 mg PO BID [facility] Last Admin: 07/01/17 10:04 Dose: 75 mg Solifenacin (Vesicare -) 5 mg PO DAILY [facility] Last Admin: 07/01/17 10:05 Dose: 5 mg Tiotropium [place] (Spiriva -) 1 puff IH DAILY [facility] Last Admin: 07/01/17 10:04 Dose: 1 puff - Objective Vital Signs: Vital Signs Temperature 97.8 F 07/01/17 16:30 Pulse Rate 83 07/01/17 16:30 Respiratory Rate 20 07/01/17 16:30 Blood Pressure 132/79 07/01/17 16:30 O2 Sat by Pulse Oximetry (%) 100 07/01/17 09:00 Labs: CBC, BMP 06/30/17 07:27 06/30/17 07:27 INR, PTT INR 1.26 (0.82-1.09) H 06/25/17 21:15 Problem List - Problems (1) DVT (deep venous thrombosis) Code(s): I82.409 - ACUTE EMBOLISM AND THOMBOS UNSP DEEP VN UNSP LOWER EXTREMITY Qualifiers: DVT location: lower extremity Chronicity: unspecified Laterality: right (2) Asthma Code(s): J45.909 - UNSPECIFIED ASTHMA, UNCOMPLICATED (3) Chronic renal insufficiency, stage III (moderate) Code(s): N18.3 - CHRONIC KIDNEY DISEASE, STAGE 3 (MODERATE) (4) GERD (gastroesophageal reflux disease) Code(s): K21.9 - GASTRO-ESOPHAGEAL REFLUX DISEASE WITHOUT ESOPHAGITIS Qualifiers: Esophagitis presence: without esophagitis Qualified Code(s): K21.9 - Gastro -esophageal reflux disease without esophagitis (5) Diabetes Code(s): E11.9 - TYPE 2 DIABETES MELLITUS WITHOUT COMPLICATIONS (6) HTN (hypertension) Code(s): I10 - ESSENTIAL (PRIMARY) HYPERTENSION (7) HLD (hyperlipidemia) Code(s): E78.5 - HYPERLIPIDEMIA, UNSPECIFIED
[2017-07-01] MEDS: INSULIN DETEMIR 100 UNITS/ML MDV SQ SCH (22:00)
[2017-07-01] MEDS: MONTELUKAST NA 10 MG TABLET PO SCH (22:01)
[2017-07-01] MEDS: MIRTAZAPINE 15 MG TABLET (FP) PO SCH (22:01)
[2017-07-01] MEDS: ATORVASTATIN CA 10 MG TABLET (FP) PO SCH (22:01)
[2017-07-02] MEDS: INSULIN (NOVOLOG) ASPART 100 UNITS/ML 10ML VIAL SQ SCH ×3 (06:36→17:53)
[2017-07-02] MEDS: metFORMIN HCL 500 MG TABLET (FP) PO SCH (06:36)
--- NOTE | 2017-07-02 07:05 | PN ---
Progress Note (short form) - Note Progress Note: Patient seen and examined 07/01/17 feels better AFVSS Cor: RSR, No murmurs, No gallops Lungs: Clear to P&A Abd: Soft, Normal bowel sounds, No organomegaly Ext:No significant edema Labs/MEds reviewed A/P 56 y/o patient with DM h/o Prior unprovoked DVT/PE in 11/2014 off of AC after a detailed discussion of pros/cons of continued AC in 2016, elected to stop with close monitoring and also she was having frequent falls at that time. Thrombophilia w/u was negative Now with w with some RLE burning over varicosities. Duplex currently shows chronic RLE DVT present even in 2014 [place] rt. LSV superficial thrombosis ---? related to varicosities currently on lovenox---since rt. popliteall DVT is chronic , rt. LSV superficial thrombosis probably related to varicosities --could probably repeat duplex in 2 weeks to make sure there is no progression and LSV superficial thrombosis conservatively for now with warm compress. Alternatively could anticoagulate with DVT prophylaxis doses -- lovenox 40mg SC daily for 1 month will request fall risk assessment by neurology/physical therapy----- reconsulted them and discussed with nursing staff regarding this will need outpatient f/u with breast surgery/MUNICIPAL CLERK/GI and pulmonary teams will need age appropriate cancer screening ESBL UTI --treatment per ID team Will need to f/u with MUNICIPAL CLERK/Urology regarding above obstructive urinary symptoms
[2017-07-02] MEDS ORDERED: INSULIN (NOVOLOG) ASPART 100 UNITS/ML 10ML VIAL ONE (07:14)
[2017-07-02] MEDS ORDERED: INSULIN DETEMIR 100 UNITS/ML MDV SQ ONE (07:14)
[2017-07-02] MEDS: ALBUTEROL SO4 0.083% IH SOL 2.5 MG/3 ML VIAL.NEB. NEB SCH ×3 (08:40→20:19)
--- NOTE | 2017-07-02 09:23 | PN ---
Progress Note (short form) - Note Progress Note: Neurology History of Present Illness The patient is a 56 year old female, with a significant past medical history of hypertension, diabetes mellitus, hypercholesterolemia, who presented to the emergency department for evaluation of DVT to the right leg found on ultrasound by her dry cell assembly machine tender Dr. Romeo. The patient states she has noticed her right leg has been appearing more swollen than the left leg and reports she has a history of DVT's in the past. The patient also states she was recently treated for pneumonia and had some mild shortness of breath, however, is not having any now. The patient reports she used to take Coumadin but was taken off approx. one year ago. I was consulted due to tingling sensations in her lower extremities. States they have been ongoing. Poor historian and when I asked her about neurontin/gabapentin she was not sure if she was on medication on the past. Gabapentin is listed on allergies but she is not sure if she was ever on it. She does have underlying DM and with likely diabetic neuropathy. Started on Lyrica and reports some improvement in symptoms. Feels better and less tingling. No side effects with the medication. Advised her to remain on it. Active Medications Albuterol Sulfate (Ventolin 0.083% Nebulizer Soln -) 1 amp NEB RTID [facility] Last Admin: 07/01/17 20:30 Dose: 1 amp Atorvastatin Calcium (Lipitor -) 10 mg PO HS [facility] Last Admin: 07/01/17 22:01 Dose: 10 mg Budesonide/Formoterol Fumarate (Symbicort 160/4.5mcg -) 2 puff IH BID [facility] Last Admin: 07/01/17 22:03 Dose: 2 puff Calcium Carbonate/Cholecalciferol (Os-Ray 500+D -) 1 tab PO DAILY [facility] Last Admin: 07/01/17 10:04 Dose: 1 tab Enoxaparin Sodium (Lovenox -) 40 mg SQ DAILY [facility] Last Admin: 07/01/17 10:04 Dose: 40 mg Guaifenesin/Codeine Phosphate (Robitussin Ac -) 10 ml PO Q8H PRN PRN Reason: COUGH Ertapenem 1 gm/ Sodium (Chloride) 100 mls @ 200 mls/hr IVPB DAILY [facility] PRN Reason: Protocol Last Admin: 07/01/17 10:03 Dose: 200 mls/hr Insulin Aspart (Novolog Vial) 10 units SQ TIDAC [facility] Last Admin: 07/02/17 06:36 Dose: 10 units Insulin Detemir (Levemir Vial) 50 units SQ [facility] Last Admin: 07/01/17 22:00 Dose: 50 units Lisinopril (Prinivil) 20 mg PO DAILY [facility] Last Admin: 07/01/17 10:04 Dose: 20 mg Metformin HCl (Glucophage -) 500 mg PO DAILY@0700 [facility] Last Admin: 07/02/17 06:36 Dose: 500 mg Mirtazapine (Remeron -) 7.5 mg PO [facility] Last Admin: 07/01/17 22:01 Dose: 7.5 mg Montelukast Sodium (Singulair -) 10 mg PO [facility] Last Admin: 07/01/17 22:01 Dose: 10 mg Pregabalin (Lyrica -) 75 mg PO BID [facility] Last Admin: 07/01/17 22:01 Dose: 75 mg Solifenacin (Vesicare -) 5 mg PO DAILY [facility] Last Admin: 07/01/17 10:05 Dose: 5 mg Tiotropium [place] (Spiriva -) 1 puff IH DAILY [facility] Last Admin: 07/01/17 10:04 Dose: 1 puff *Physical Exam Vital Signs Period Temp Pulse Resp BP Sys/Gunter Pulse Ox Last 24 Hr 97.4 F-98.2 F 60-93 20-20 123-137/62-79 97 GENERAL: Well-appearing, well-nourished. No apparent distress. HEENT: Normocephalic, atraumatic. PERRL, EOM intact. CARDIOVASCULAR: Normal S1, S2. Regular rate and rhythm. PULMONARY: Clear to auscultation bilaterally. ABDOMEN: Soft, non-distended, non-tender. EXTREMITIES: (+) Right leg is slightly more swollen than left around the calf region. No calf tenderness, cords or erythema. Normal ROM in all four extremities. No gross deformities. SKIN: Warm, dry. No rash NEUROLOGICAL: CN intact, strenght intact, No focal neurological deficits, sensory slight decrease in b/l LE, gait deferred - RADIOLOGY Radiograph Interpretation: EXAM#: TYPE/EXAM: RESULT: [id number] US/DUPLEX VASCUL US-2LEGS INDICATION: History of deep vein thrombosis and IVC filter. Clinical suspicion for lower extremity deep vein thrombosis. COMPARISON: 07/11/2016 left lower extremity duplex and 12/15/2014 bilateral lower extremity duplex. IMPRESSION: 1. Right popliteal vein thrombus as described above is likely chronic. Occlusive thrombosis of the right lesser saphenous vein. 2. No evidence of left lower extremity deep vein thrombosis, as above. [id number] RAD/CHEST PA LAT HISTORY PROVIDED: Rule out infiltrate PA and lateral projections of the chest are submitted. The heart size is within normal limits. The lung evans are free of pulmonary infiltrates or pleural effusions. There is tortuosity and calcification of the thoracic aorta and degenerative changes of the thoracic spine. IMPRESSION: No acute disease. CBCD WBC 5.2 K/mm3 (4.0-10.0) 06/30/17 07:27 RBC 4.36 M/mm3 (3.60-5.2) 06/30/17 07:27 Hgb 13.0 GM/dL (10.7-15.3) 06/30/17 07:27 Hct 39.6 % (32.4-45.2) 06/30/17 07:27 MCV 90.7 fl (80-96) 06/30/17 07:27 MCHC 32.9 g/dl (32.0-36.0) 06/30/17 07:27 RDW 14.6 % (11.6-15.6) 06/30/17 07:27 Plt Count 161 K/MM3 (134-434) 06/30/17 07:27 MPV 9.8 fl (7.5-11.1) 06/30/17 07:27 CMP Sodium 144 mmol/L (136-145) 06/30/17 07:27 Potassium 4.0 mmol/L (3.5-5.1) 06/30/17 07:27 Chloride 107 mmol/L (98-107) 06/30/17 07:27 Carbon Dioxide 23 mmol/L (21-32) 06/30/17 07:27 Anion Gap 14 (8-16) 06/30/17 07:27 BUN 18 mg/dL (7-18) 06/30/17 07:27 Creatinine 0.9 mg/dL (0.55-1.02) 06/30/17 07:27 Creat Clearance w eGFR > 60 (>60) 06/30/17 07:27 Calcium 9.2 mg/dL (8.5-10.1) 06/30/17 07:27 Total Bilirubin 0.3 mg/dL (0.2-1.0) 06/30/17 07:27 AST 27 U/L (15-37) 06/30/17 07:27 ALT 31 U/L (12-78) 06/30/17 07:27 Alkaline Phosphatase 75 U/L (45-117) 06/30/17 07:27 Total Protein 6.8 g/dl (6.4-8.2) 06/30/17 07:27 Albumin 3.2 g/dl (3.4-5.0) L 06/30/17 07:27 Medical Decision Making 56 year old female, with a significant past medical history of hypertension, diabetes mellitus, hypercholesterolemia, who presented to the emergency department for evaluation of DVT to the right leg found on ultrasound by her dry cell assembly machine tender Dr. Romeo. The patient states she has noticed her right leg has been appearing more swollen than the left leg and reports she has a history of DVT's in the past. The patient also states she was recently treated for pneumonia and had some mild shortness of breath, however, is not having any now. The patient reports she used to take Coumadin but was taken off approx. one year ago. I was consulted due to tingling sensations in her lower extremities. States they have been ongoing. Poor historian and when I asked her about neurontin/gabapentin she was not sure if she was on medication on the past. Gabapentin is listed on allergies but she is not sure if she was ever on it. She does have underlying DM and with likely diabetic neuropathy. On Lyrica 75mg twice daily since Gabapentin allergy listed. Reports improvement in symptoms, less tingling, no side effects. Recommend continuing. Tight glycemic control recommended and most beneficial to diminishing neuropathy.
--- NOTE | 2017-07-02 10:11 | PN ---
Progress Note (short form) - Note Progress Note: PULMONARY Cough persists with occasional green sputum. No fevers or chills. No chest pain. Last Vital Signs Temp Pulse Resp BP Pulse Ox 98.2 F 60 20 127/70 97 07/02/17 06:00 07/02/17 06:00 07/02/17 06:00 07/02/17 06:00 07/01/17 21:00 Gen: NAD at rest Heart: RRR Lung: decreased breath sounds at the bases Abd: soft, nontender Ext: no edema CBC, BMP 06/30/17 07:27 06/30/17 07:27 Active Medications Albuterol Sulfate (Ventolin 0.083% Nebulizer Soln -) 1 amp NEB RTID [facility] Last Admin: 07/01/17 20:30 Dose: 1 amp Atorvastatin Calcium (Lipitor -) 10 mg PO HS [facility] Last Admin: 07/01/17 22:01 Dose: 10 mg Budesonide/Formoterol Fumarate (Symbicort 160/4.5mcg -) 2 puff IH BID [facility] Last Admin: 07/01/17 22:03 Dose: 2 puff Calcium Carbonate/Cholecalciferol (Os-Ray 500+D -) 1 tab PO DAILY [facility] Last Admin: 07/01/17 10:04 Dose: 1 tab Enoxaparin Sodium (Lovenox -) 40 mg SQ DAILY [facility] Last Admin: 07/01/17 10:04 Dose: 40 mg Guaifenesin/Codeine Phosphate (Robitussin Ac -) 10 ml PO Q8H PRN PRN Reason: COUGH Ertapenem 1 gm/ Sodium (Chloride) 100 mls @ 200 mls/hr IVPB DAILY [facility] PRN Reason: Protocol Last Admin: 07/01/17 10:03 Dose: 200 mls/hr Insulin Aspart (Novolog Vial) 10 units SQ TIDAC [facility] Last Admin: 07/02/17 06:36 Dose: 10 units Insulin Detemir (Levemir Vial) 50 units SQ HS [facility] Last Admin: 07/01/17 22:00 Dose: 50 units Lisinopril (Prinivil) 20 mg PO DAILY [facility] Last Admin: 07/01/17 10:04 Dose: 20 mg Metformin HCl (Glucophage -) 500 mg PO DAILY@0700 [facility] Last Admin: 07/02/17 06:36 Dose: 500 mg Mirtazapine (Remeron -) 7.5 mg PO HS [facility] Last Admin: 07/01/17 22:01 Dose: 7.5 mg Montelukast Sodium (Singulair -) 10 mg PO HS [facility] Last Admin: 07/01/17 22:01 Dose: 10 mg Pregabalin (Lyrica -) 75 mg PO BID [facility] Last Admin: 07/01/17 22:01 Dose: 75 mg Solifenacin (Vesicare -) 5 mg PO DAILY [facility] Last Admin: 07/01/17 10:05 Dose: 5 mg Tiotropium [place] (Spiriva -) 1 puff IH DAILY [facility] Last Admin: 07/01/17 10:04 Dose: 1 puff A/P RLE DVT Asthma HTN DM - continue inhaled bronchodilators - continue singulair - cough suppressants - glucose control - anticoagulation per hematology
--- NOTE | 2017-07-02 10:17 | PN ---
Progress Note, Physician History of Present Illness: patient stable no new issues no complaints - Current Medication List Current Medications: Active Medications Albuterol Sulfate (Ventolin 0.083% Nebulizer Soln -) 1 amp NEB RTID [facility] Last Admin: 07/01/17 20:30 Dose: 1 amp Atorvastatin Calcium (Lipitor -) 10 mg PO HS [facility] Last Admin: 07/01/17 22:01 Dose: 10 mg Budesonide/Formoterol Fumarate (Symbicort 160/4.5mcg -) 2 puff IH BID [facility] Last Admin: 07/01/17 22:03 Dose: 2 puff Calcium Carbonate/Cholecalciferol (Os-Ray 500+D -) 1 tab PO DAILY [facility] Last Admin: 07/01/17 10:04 Dose: 1 tab Enoxaparin Sodium (Lovenox -) 40 mg SQ DAILY [facility] Last Admin: 07/01/17 10:04 Dose: 40 mg Guaifenesin/Codeine Phosphate (Robitussin Ac -) 10 ml PO Q8H PRN PRN Reason: COUGH Ertapenem 1 gm/ Sodium (Chloride) 100 mls @ 200 mls/hr IVPB DAILY [facility] PRN Reason: Protocol Last Admin: 07/01/17 10:03 Dose: 200 mls/hr Insulin Aspart (Novolog Vial) 10 units SQ TIDAC [facility] Last Admin: 07/02/17 06:36 Dose: 10 units Insulin Detemir (Levemir Vial) 50 units SQ HS [facility] Last Admin: 07/01/17 22:00 Dose: 50 units Lisinopril (Prinivil) 20 mg PO DAILY [facility] Last Admin: 07/01/17 10:04 Dose: 20 mg Metformin HCl (Glucophage -) 500 mg PO DAILY@0700 [facility] Last Admin: 07/02/17 06:36 Dose: 500 mg Mirtazapine (Remeron -) 7.5 mg PO [facility] Last Admin: 07/01/17 22:01 Dose: 7.5 mg Montelukast Sodium (Singulair -) 10 mg PO [facility] Last Admin: 07/01/17 22:01 Dose: 10 mg Pregabalin (Lyrica -) 75 mg PO BID [facility] Last Admin: 07/01/17 22:01 Dose: 75 mg Solifenacin (Vesicare -) 5 mg PO DAILY [facility] Last Admin: 07/01/17 10:05 Dose: 5 mg Tiotropium [place] (Spiriva -) 1 puff IH DAILY [facility] Last Admin: 07/01/17 10:04 Dose: 1 puff - Objective Vital Signs: Vital Signs Temperature 98.2 F 07/02/17 06:00 Pulse Rate 60 07/02/17 06:00 Respiratory Rate 20 07/02/17 06:00 Blood Pressure 127/70 07/02/17 06:00 O2 Sat by Pulse Oximetry (%) 97 07/01/17 21:00 Constitutional: Yes: No Distress, Calm, Obese Cardiovascular: Yes: S1, S2 Respiratory: Yes: Regular, CTA Bilaterally Gastrointestinal: Yes: Normal Bowel Sounds, Soft Musculoskeletal: Yes: WNL Extremities: Yes: WNL Neurological: Yes: Alert, Oriented Psychiatric: Yes: Alert, Oriented Labs: CBC, BMP 06/30/17 07:27 06/30/17 07:27 INR, PTT INR 1.26 (0.82-1.09) H 06/25/17 21:15 Assessment/Plan Problem List - Problems (1) DVT (deep venous thrombosis) Code(s): I82.409 - ACUTE EMBOLISM AND THOMBOS UNSP DEEP VN UNSP LOWER EXTREMITY Qualifiers: DVT location: lower extremity Chronicity: unspecified Laterality: right (2) Bronchitis Code(s): J40 - BRONCHITIS, NOT SPECIFIED ACUTE OR CHRONIC (3) Neuropathy due to type 2 diabetes mellitus Code(s): E11.40 - TYPE 2 DIABETES MELLITUS WITH DIABETIC NEUROPATHY, UNSP (4) Obesity (BMI 30-39.9) Code(s): E66.9 - OBESITY, UNSPECIFIED (5) Asthma Code(s): J45.909 - UNSPECIFIED ASTHMA, UNCOMPLICATED (6) Diabetes 1.5, managed as type 1 Code(s): E10.9 - TYPE 1 DIABETES MELLITUS WITHOUT COMPLICATIONS 7 esbl uti plan continue current mgmt continue abx rest as per primary team complete abx course
[2017-07-02] MEDS ORDERED: PT OWN MED DRAWER 7, Y5N ONE ×2 (10:26)
[2017-07-02] MEDS: TIOTROPIUM BROMIDE 18 MCG/INH (DEVICE W/ 5 CAPSULES) IH SCH (10:29)
[2017-07-02] MEDS: ERTAPENEM SODIUM 1 GM in SODIUM CHLORIDE 100 ML IVPB SCH (10:29)
[2017-07-02] MEDS: ENOXAPARIN NA (PORCINE) 40 MG/0.4 ML DISP.SYRIN SQ SCH (10:29)
[2017-07-02] MEDS: PREGABALIN 75 MG CAPSULE PO SCH ×2 (10:29→21:21)
[2017-07-02] MEDS: LISINOPRIL 20 MG TABLET (FP) PO SCH (10:29)
[2017-07-02] MEDS: CALCIUM 500MG/VIT-D 200 UNITS COMBO TABLET (FP) PO SCH (10:29)
[2017-07-02] MEDS: BUDESONIDE/FORMETEROL FUMARATE 160/4.5 mcg INHALER IH SCH ×2 (10:30→21:31)
[2017-07-02] MEDS: SOLIFENACIN SUCCINATE 5 MG TAB (FP) PO SCH (10:31)
--- NOTE | 2017-07-02 15:26 | PN ---
Physical Exam: SUBJECTIVE: Patient seen and examined. She has no acute complaints, she still has cough and weakness. OBJECTIVE: Vital Signs Period Temp Pulse Resp BP Sys/Gunter Pulse Ox Last 24 Hr 97.4 F-98.2 F 60-93 18-20 123-137/62-89 97-100 PE Neuro: alert, awake, cn 2-12intact Pulm: diminished, + wet productive cough CV: s1 s2 rrr Abd: s nt nd + bs Ext: warm, no edema Laboratory Results - last 24 hr 07/01/17 07/01/17 07/02/17 17:10 21:54 06:10 POC Glucometer 172 215 272 07/02/17 12:21 POC Glucometer 128 Active Medications Generic Name Dose Route Start Last Admin Trade Name Freq PRN Reason Stop Dose Admin Albuterol Sulfate 1 amp 06/29/17 14:00 07/02/17 14:35 Ventolin 0.083% Nebulizer Soln - NEB 1 amp RTID [facility] Administration Atorvastatin Calcium 10 mg 06/26/17 22:00 07/01/17 22:01 Lipitor - PO 10 mg HS [facility] Administration Budesonide/Formoterol Fumarate 2 puff 06/26/17 22:00 07/02/17 10:30 Symbicort 160/4.5mcg - IH 2 puff BID [facility] Administration Calcium Carbonate/Cholecalciferol 1 tab 06/26/17 10:00 07/02/17 10:29 Os-Ray 500+D - PO 1 tab DAILY [facility] Administration Enoxaparin Sodium 40 mg 06/29/17 10:00 07/02/17 10:29 Lovenox - SQ 40 mg DAILY [facility] Administration Guaifenesin/Codeine Phosphate 10 ml 06/30/17 11:46 Robitussin Ac - PO Q8H PRN COUGH Ertapenem 1 gm/ Sodium 100 mls @ 200 mls/hr 06/28/17 13:30 07/02/17 10:29 Chloride IVPB 200 mls/hr DAILY [facility] Administration Protocol Insulin Aspart 10 units 06/26/17 09:15 07/02/17 12:23 Novolog Vial SQ 10 units TIDAC [facility] Administration Insulin Detemir 50 units 06/26/17 22:00 07/01/17 22:00 Levemir Vial SQ 50 units HS [facility] Administration Lisinopril 20 mg 06/26/17 10:00 07/02/17 10:29 Prinivil PO 20 mg DAILY [facility] Administration Metformin HCl 500 mg 06/26/17 09:30 07/02/17 06:36 Glucophage - PO 500 mg DAILY@0700 [facility] Administration Mirtazapine 7.5 mg 06/26/17 22:00 07/01/17 22:01 Remeron - PO 7.5 mg HS [facility] Administration Montelukast Sodium 10 mg 06/29/17 22:00 07/01/17 22:01 Singulair - PO 10 mg HS [facility] Administration Pregabalin 75 mg 06/29/17 13:00 07/02/17 10:29 Lyrica - PO 75 mg BID [facility] Administration Solifenacin 5 mg 06/26/17 16:30 07/02/17 10:31 Vesicare - PO 5 mg DAILY [facility] Administration Tiotropium [place] 1 puff 06/26/17 16:00 07/02/17 10:29 Spiriva - IH 1 puff DAILY [facility] Administration Microbiology 06/25/17 21:15 Urine - Urine Clean Catch Urine Culture - Final Escherichia Coli Esbl Health Advisor Assessment: 56 year old female with PMH significant for HTN, DM and HLD, hx of dvt's off coumadin (approx stopped 1yr) admitted with R LE DVT. Plan: 1. RLE DVT acute v chronic - LSV superficial thrombosis v varicosities - hx of unprovoked dvt in 11/2014 - Off AC in 2016 and was having frequent falls - Thrombophilia w/u negative - Lovenox 40mg daily x1 month - Repeat US in 2 weeks - Will need outpt cancer screening 2. HTN - Lisinopril 20mg daily - 3. Asthma - Singulair - Spirivia 4. ESBL UTI - Ertapenem 1gm daily - ID seeing 5. DM II - Levemir 10 TID, 50units HS 6. Diabetic neuropathy - Lyrica 75mg BID Visit type - Emergency Visit Emergency Visit: Yes ED Registration Date: 06/29/17 Care time: The patient presented to the Emergency Department on the above date and was hospitalized for further evaluation of their emergent condition. - New Patient This patient is new to me today: Yes Date on this admission: 07/02/17 - Critical Care Critical Care patient: No
[2017-07-02] MEDS: MONTELUKAST NA 10 MG TABLET PO SCH (21:21)
[2017-07-02] MEDS: ATORVASTATIN CA 10 MG TABLET (FP) PO SCH (21:21)
[2017-07-02] MEDS: MIRTAZAPINE 15 MG TABLET (FP) PO SCH (21:21)
[2017-07-02] MEDS: INSULIN DETEMIR 100 UNITS/ML MDV SQ SCH (21:23)
[2017-07-03] MEDS: metFORMIN HCL 500 MG TABLET (FP) PO SCH (06:49)
[2017-07-03] MEDS: INSULIN (NOVOLOG) ASPART 100 UNITS/ML 10ML VIAL SQ SCH ×3 (06:50→18:05)
[2017-07-03] MEDS: ALBUTEROL SO4 0.083% IH SOL 2.5 MG/3 ML VIAL.NEB. NEB SCH ×3 (07:40→20:20)
[2017-07-03 08:37] LABS: CHLORIDE 105 mmol/L (98-107); POTASSIUM 4.3 mmol/L (3.5-5.1); SODIUM 139 mmol/L (136-145)
[2017-07-03 08:43] LABS: ANION GAP 11 (8-16); BLOOD UREA NITROGEN 19 mg/dL (7-18); CALCIUM 8.8 mg/dL (8.5-10.1); CO2 23 mmol/L (21-32); CREATININE 0.9 mg/dL (0.55-1.02); GLUCOSE,RANDOM 270 mg/dL (74-106)
--- NOTE | 2017-07-03 10:06 | PN ---
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
[2017-07-03] MEDS ORDERED: PT OWN MED DRAWER 7, Y5N ONE (10:29)
[2017-07-03] MEDS: ERTAPENEM SODIUM 1 GM in SODIUM CHLORIDE 100 ML IVPB SCH (10:36)
[2017-07-03] MEDS: SOLIFENACIN SUCCINATE 5 MG TAB (FP) PO SCH (10:36)
[2017-07-03] MEDS: CALCIUM 500MG/VIT-D 200 UNITS COMBO TABLET (FP) PO SCH (10:37)
[2017-07-03] MEDS: TIOTROPIUM BROMIDE 18 MCG/INH (DEVICE W/ 5 CAPSULES) IH SCH (10:37)
[2017-07-03] MEDS: ENOXAPARIN NA (PORCINE) 40 MG/0.4 ML DISP.SYRIN SQ SCH (10:37)
[2017-07-03] MEDS: PREGABALIN 75 MG CAPSULE PO SCH ×2 (10:37→21:42)
[2017-07-03] MEDS: LISINOPRIL 20 MG TABLET (FP) PO SCH (10:37)
[2017-07-03] MEDS: BUDESONIDE/FORMETEROL FUMARATE 160/4.5 mcg INHALER IH SCH ×2 (10:39→21:43)
--- NOTE | 2017-07-03 14:48 | PN ---
Physical Exam: Medicine coverage for Dr. Plunkett SUBJECTIVE: Patient seen and examined. C/o persistent cough and left rib pain OBJECTIVE: Vital Signs Period Temp Pulse Resp BP Sys/Gunter Pulse Ox Last 24 Hr 98.4 F-98.8 F 69-85 18-20 117-139/72-76 100 PE Neuro: alert, awake, cn 2-12intact Pulm: diffuse, rhonchi, + wet productive cough CV: s1 s2 rrr Abd: s nt nd + bs Ext: warm, no edema Laboratory Results - last 24 hr 07/03/17 07/03/17 06:55 13:10 Sodium 139 Potassium 4.3 Chloride 105 Carbon Dioxide 23 Anion Gap 11 BUN 19 H Creatinine 0.9 POC Glucometer 199 Random Glucose 270 H Calcium 8.8 Active Medications Generic Name Dose Route Start Last Admin Trade Name Freq PRN Reason Stop Dose Admin Albuterol Sulfate 1 amp 06/29/17 14:00 07/03/17 07:40 Ventolin 0.083% Nebulizer Soln - NEB 1 amp RTID [facility] Administration Atorvastatin Calcium 10 mg 06/26/17 22:00 07/02/17 21:21 Lipitor - PO 10 mg HS [facility] Administration Budesonide/Formoterol Fumarate 2 puff 06/26/17 22:00 07/03/17 10:39 Symbicort 160/4.5mcg - IH 2 puff BID [facility] Administration Calcium Carbonate/Cholecalciferol 1 tab 06/26/17 10:00 07/03/17 10:37 Os-Ray 500+D - PO 1 tab DAILY [facility] Administration Enoxaparin Sodium 40 mg 06/29/17 10:00 07/03/17 10:37 Lovenox - SQ 40 mg DAILY [facility] Administration Ertapenem 1 gm/ Sodium 100 mls @ 200 mls/hr 06/28/17 13:30 07/03/17 10:36 Chloride IVPB 200 mls/hr DAILY [facility] Administration Protocol Insulin Aspart 10 units 06/26/17 09:15 07/03/17 13:09 Novolog Vial SQ 10 units TIDAC [facility] Administration Insulin Detemir 50 units 06/26/17 22:00 07/02/17 21:23 Levemir Vial SQ 50 units HS [facility] Administration Lisinopril 20 mg 06/26/17 10:00 07/03/17 10:37 Prinivil PO 20 mg DAILY [facility] Administration Metformin HCl 500 mg 06/26/17 09:30 07/03/17 06:49 Glucophage - PO 500 mg DAILY@0700 [facility] Administration Mirtazapine 7.5 mg 06/26/17 22:00 07/02/17 21:21 Remeron - PO 7.5 mg HS [facility] Administration Montelukast Sodium 10 mg 06/29/17 22:00 07/02/17 21:21 Singulair - PO 10 mg HS [facility] Administration Pregabalin 75 mg 06/29/17 13:00 07/03/17 10:37 Lyrica - PO 75 mg BID [facility] Administration Solifenacin 5 mg 06/26/17 16:30 07/03/17 10:36 Vesicare - PO 5 mg DAILY [facility] Administration Tiotropium [place] 1 puff 06/26/17 16:00 07/03/17 10:37 Spiriva - IH 1 puff DAILY [facility] Administration Microbiology 06/25/17 21:15 Urine - Urine Clean Catch Urine Culture - Final Escherichia Coli Esbl Buffer Chrome Assessment: 56 year old female with PMH significant for HTN, DM and HLD, hx of dvt's off coumadin (approx stopped 1yr) admitted with R LE DVT. Plan: 1. RLE DVT acute v chronic - LSV superficial thrombosis v varicosities - hx of unprovoked dvt in 11/2014 - Off AC in 2016 and was having frequent falls - Thrombophilia w/u negative - Lovenox 40mg daily x1 month - Repeat US in 2 weeks - Will need outpt cancer screening 2. HTN - Lisinopril 20mg daily - 3. Asthma with cough - Singulair - Spirivia - Start robitussin juliette x24hr 4. ESBL UTI - Ertapenem 1gm daily - ID seeing 5. DM II - Levemir 10 TID, 50units HS - Metformin - ISS TIDAC 6. Diabetic neuropathy - Lyrica 75mg BID Visit type - Emergency Visit Emergency Visit: Yes ED Registration Date: 06/29/17 Care time: The patient presented to the Emergency Department on the above date and was hospitalized for further evaluation of their emergent condition. - New Patient This patient is new to me today: No - Critical Care Critical Care patient: No
--- NOTE | 2017-07-03 15:29 | PN ---
Progress Note, Physician History of Present Illness: patient doing well no complaints says she has lost weight still with pain in the rt lower side - Current Medication List Current Medications: Active Medications Albuterol Sulfate (Ventolin 0.083% Nebulizer Soln -) 1 amp NEB RTID [facility] Last Admin: 07/03/17 13:05 Dose: 1 amp Atorvastatin Calcium (Lipitor -) 10 mg PO HS [facility] Last Admin: 07/02/17 21:21 Dose: 10 mg Budesonide/Formoterol Fumarate (Symbicort 160/4.5mcg -) 2 puff IH BID [facility] Last Admin: 07/03/17 10:39 Dose: 2 puff Calcium Carbonate/Cholecalciferol (Os-Ray 500+D -) 1 tab PO DAILY [facility] Last Admin: 07/03/17 10:37 Dose: 1 tab Enoxaparin Sodium (Lovenox -) 40 mg SQ DAILY [facility] Last Admin: 07/03/17 10:37 Dose: 40 mg Guaifenesin (Diabetic Tussin Dm -) 10 ml PO Q6H [facility] Stop: 07/04/17 14:59 Ertapenem 1 gm/ Sodium (Chloride) 100 mls @ 200 mls/hr IVPB DAILY [facility] PRN Reason: Protocol Last Admin: 07/03/17 10:36 Dose: 200 mls/hr Insulin Aspart (Novolog Vial) 10 units SQ TIDAC [facility] Last Admin: 07/03/17 13:09 Dose: 10 units Insulin Detemir (Levemir Vial) 50 units SQ HS [facility] Last Admin: 07/02/17 21:23 Dose: 50 units Lisinopril (Prinivil) 20 mg PO DAILY [facility] Last Admin: 07/03/17 10:37 Dose: 20 mg Metformin HCl (Glucophage -) 500 mg PO DAILY@0700 [facility] Last Admin: 07/03/17 06:49 Dose: 500 mg Mirtazapine (Remeron -) 7.5 mg PO [facility] Last Admin: 07/02/17 21:21 Dose: 7.5 mg Montelukast Sodium (Singulair -) 10 mg PO HS [facility] Last Admin: 07/02/17 21:21 Dose: 10 mg Pregabalin (Lyrica -) 75 mg PO BID [facility] Last Admin: 07/03/17 10:37 Dose: 75 mg Solifenacin (Vesicare -) 5 mg PO DAILY [facility] Last Admin: 07/03/17 10:36 Dose: 5 mg Tiotropium [place] (Spiriva -) 1 puff IH DAILY [facility] Last Admin: 07/03/17 10:37 Dose: 1 puff - Objective Vital Signs: Vital Signs Temperature 98.8 F 07/03/17 14:34 Pulse Rate 70 07/03/17 14:34 Respiratory Rate 20 07/03/17 14:34 Blood Pressure 139/76 07/03/17 14:34 O2 Sat by Pulse Oximetry (%) 100 07/02/17 21:00 Constitutional: Yes: No Distress, Calm Cardiovascular: Yes: Regular Rate and Rhythm Respiratory: Yes: Regular, CTA Bilaterally Gastrointestinal: Yes: Normal Bowel Sounds, Soft Musculoskeletal: Yes: WNL Extremities: Yes: WNL Neurological: Yes: Alert, Oriented Psychiatric: Yes: Alert, Oriented Labs: CBC, BMP 06/30/17 07:27 07/03/17 06:55 INR, PTT INR 1.26 (0.82-1.09) H 06/25/17 21:15 Assessment/Plan Problem List - Problems (1) DVT (deep venous thrombosis) Code(s): I82.409 - ACUTE EMBOLISM AND THOMBOS UNSP DEEP VN UNSP LOWER EXTREMITY Qualifiers: DVT location: lower extremity Chronicity: unspecified Laterality: right (2) Bronchitis Code(s): J40 - BRONCHITIS, NOT SPECIFIED ACUTE OR CHRONIC (3) Neuropathy due to type 2 diabetes mellitus Code(s): E11.40 - TYPE 2 DIABETES MELLITUS WITH DIABETIC NEUROPATHY, UNSP (4) Obesity (BMI 30-39.9) Code(s): E66.9 - OBESITY, UNSPECIFIED (5) Asthma Code(s): J45.909 - UNSPECIFIED ASTHMA, UNCOMPLICATED (6) Diabetes 1.5, managed as type 1 Code(s): E10.9 - TYPE 1 DIABETES MELLITUS WITHOUT COMPLICATIONS 7 esbl uti plan continue current mgmt continue abx rest as per primary team complete abx course
[2017-07-03] MEDS: guaiFENesin/D-M SUGAR-FREE/ACLHOL-FREE 118 ML BOTTLE PO SCH ×2 (18:05→21:09)
[2017-07-03] MEDS: MIRTAZAPINE 15 MG TABLET (FP) PO SCH (21:41)
[2017-07-03] MEDS: ATORVASTATIN CA 10 MG TABLET (FP) PO SCH (21:42)
[2017-07-03] MEDS: INSULIN DETEMIR 100 UNITS/ML MDV SQ SCH (21:43)
[2017-07-03] MEDS: MONTELUKAST NA 10 MG TABLET PO SCH (21:43)
[2017-07-04] MEDS: guaiFENesin/D-M SUGAR-FREE/ACLHOL-FREE 118 ML BOTTLE PO SCH ×2 (03:02→10:41)
[2017-07-04] MEDS: metFORMIN HCL 500 MG TABLET (FP) PO SCH (06:42)
[2017-07-04] MEDS: INSULIN (NOVOLOG) ASPART 100 UNITS/ML 10ML VIAL SQ SCH ×3 (06:42→18:04)
[2017-07-04] MEDS ORDERED: INSULIN (NOVOLOG) ASPART 100 UNITS/ML 10ML VIAL ONE ×2 (07:08→11:15)
[2017-07-04] MEDS ORDERED: INSULIN DETEMIR 100 UNITS/ML MDV SQ ONE (07:09)
[2017-07-04] MEDS: ALBUTEROL SO4 0.083% IH SOL 2.5 MG/3 ML VIAL.NEB. NEB SCH (09:35)
[2017-07-04] MEDS ORDERED: PT OWN MED DRAWER 7, Y5N ONE (10:36)
[2017-07-04] MEDS: PREGABALIN 75 MG CAPSULE PO SCH (10:40)
[2017-07-04] MEDS: CALCIUM 500MG/VIT-D 200 UNITS COMBO TABLET (FP) PO SCH (10:40)
[2017-07-04] MEDS: SOLIFENACIN SUCCINATE 5 MG TAB (FP) PO SCH (10:40)
[2017-07-04] MEDS: BUDESONIDE/FORMETEROL FUMARATE 160/4.5 mcg INHALER IH SCH (10:40)
[2017-07-04] MEDS: ERTAPENEM SODIUM 1 GM in SODIUM CHLORIDE 100 ML IVPB SCH (10:41)
[2017-07-04] MEDS: LISINOPRIL 20 MG TABLET (FP) PO SCH (10:41)
[2017-07-04] MEDS: ENOXAPARIN NA (PORCINE) 40 MG/0.4 ML DISP.SYRIN SQ SCH ×2 (10:41→11:25)
[2017-07-04] MEDS: TIOTROPIUM BROMIDE 18 MCG/INH (DEVICE W/ 5 CAPSULES) IH SCH (10:42)
--- NOTE | 2017-07-04 11:02 | PN ---
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
--- NOTE | 2017-07-04 13:36 | PN ---
Progress Note, Physician History of Present Illness: patient stable no new issues doing well - Current Medication List Current Medications: Active Medications Albuterol Sulfate (Ventolin 0.083% Nebulizer Soln -) 1 amp NEB RTID [facility] Last Admin: 07/04/17 09:35 Dose: 1 amp Atorvastatin Calcium (Lipitor -) 10 mg PO HS [facility] Last Admin: 07/03/17 21:42 Dose: 10 mg Budesonide/Formoterol Fumarate (Symbicort 160/4.5mcg -) 2 puff IH BID [facility] Last Admin: 07/04/17 10:40 Dose: 2 puff Calcium Carbonate/Cholecalciferol (Os-Ray 500+D -) 1 tab PO DAILY [facility] Last Admin: 07/04/17 10:40 Dose: 1 tab Enoxaparin Sodium (Lovenox -) 40 mg SQ DAILY [facility] Last Admin: 07/04/17 11:25 Dose: 40 mg Guaifenesin (Diabetic Tussin Dm -) 10 ml PO Q6H [facility] Stop: 07/04/17 14:59 Last Admin: 07/04/17 10:41 Dose: 10 ml Ertapenem 1 gm/ Sodium (Chloride) 100 mls @ 200 mls/hr IVPB DAILY [facility] PRN Reason: Protocol Last Admin: 07/04/17 10:41 Dose: 200 mls/hr Insulin Aspart (Novolog Vial) 10 units SQ TIDAC [facility] Last Admin: 07/04/17 11:25 Dose: 10 units Insulin Detemir (Levemir Vial) 50 units SQ HS [facility] Last Admin: 07/03/17 21:43 Dose: 50 units Lisinopril (Prinivil) 20 mg PO DAILY [facility] Last Admin: 07/04/17 10:41 Dose: 20 mg Metformin HCl (Glucophage -) 500 mg PO DAILY@0700 [facility] Last Admin: 07/04/17 06:42 Dose: 500 mg Mirtazapine (Remeron -) 7.5 mg PO [facility] Last Admin: 07/03/17 21:41 Dose: 7.5 mg Montelukast Sodium (Singulair -) 10 mg PO HS [facility] Last Admin: 07/03/17 21:43 Dose: 10 mg Pregabalin (Lyrica -) 75 mg PO BID [facility] Last Admin: 07/04/17 10:40 Dose: 75 mg Solifenacin (Vesicare -) 5 mg PO DAILY [facility] Last Admin: 07/04/17 10:40 Dose: 5 mg Tiotropium [place] (Spiriva -) 1 puff IH DAILY [facility] Last Admin: 07/04/17 10:42 Dose: 1 puff - Objective Vital Signs: Vital Signs Temperature 98.7 F 07/04/17 10:00 Pulse Rate 87 07/04/17 10:00 Respiratory Rate 20 07/04/17 10:00 Blood Pressure 113/66 07/04/17 10:00 O2 Sat by Pulse Oximetry (%) 100 07/03/17 21:00 Constitutional: Yes: No Distress, Calm, Obese Cardiovascular: Yes: Regular Rate and Rhythm Respiratory: Yes: Regular, CTA Bilaterally Gastrointestinal: Yes: Normal Bowel Sounds, Soft Musculoskeletal: Yes: WNL Extremities: Yes: Other Neurological: Yes: Alert, Oriented Psychiatric: Yes: Alert, Oriented Labs: CBC, BMP 06/30/17 07:27 07/03/17 06:55 INR, PTT INR 1.26 (0.82-1.09) H 06/25/17 21:15 Assessment/Plan Problem List - Problems (1) DVT (deep venous thrombosis) Code(s): I82.409 - ACUTE EMBOLISM AND THOMBOS UNSP DEEP VN UNSP LOWER EXTREMITY Qualifiers: DVT location: lower extremity Chronicity: unspecified Laterality: right (2) Bronchitis Code(s): J40 - BRONCHITIS, NOT SPECIFIED ACUTE OR CHRONIC (3) Neuropathy due to type 2 diabetes mellitus Code(s): E11.40 - TYPE 2 DIABETES MELLITUS WITH DIABETIC NEUROPATHY, UNSP (4) Obesity (BMI 30-39.9) Code(s): E66.9 - OBESITY, UNSPECIFIED (5) Asthma Code(s): J45.909 - UNSPECIFIED ASTHMA, UNCOMPLICATED (6) Diabetes 1.5, managed as type 1 Code(s): E10.9 - TYPE 1 DIABETES MELLITUS WITHOUT COMPLICATIONS 7 esbl uti plan continue current mgmt continue abx rest as per primary team complete abx course patient planning to take abx through peripheral iv 14 days
[2017-07-04 14:27] VITALS: BP 121/74; PULSE 82; TEMP 98.2
[2017-07-04] MEDS ORDERED: SODIUM PHOSPHATE/NA BIPHOS 133 ML ENEMA PR ONE (16:32)
== END 2017-07-04 20:02 | disposition home health service (06) | DRG 197 ==
LOC: JER 19:22 → JERBED 21:31 → INTOOBSV 21:31 → J5S 06-26 15:15 → J8W 06-28 12:26 → OBSVTOIN 06-29 19:10
PROVIDERS: ADMIT Internal Medicine; ATTEND Internal Medicine
DX: I82.811 Embolism and thrombosis of superficial veins of right lower extremity (principal); J45.909 Unspecified asthma, uncomplicated; K21.9 Gastro-esophageal reflux disease without esophagitis; I12.9 Hypertensive chronic kidney disease with stage 1 through stage 4 chronic kidney disease, or unspecified chronic kidney disease; E11.22 Type 2 diabetes mellitus with diabetic chronic kidney disease; N18.3 Chronic kidney disease, stage 3 (moderate); E78.5 Hyperlipidemia, unspecified; E11.40 Type 2 diabetes mellitus with diabetic neuropathy, unspecified; E66.9 Obesity, unspecified; Z68.38 Body mass index [BMI] 38.0-38.9, adult; Z16.12 Extended spectrum beta lactamase (ESBL) resistance; N39.0 Urinary tract infection, site not specified; B96.20 Unspecified Escherichia coli [E. coli] as the cause of diseases classified elsewhere
CPT/HCPCS: 36415; 71046-TC-FY; 76700-TC; 80048; 80053; 81003; 81015; 82962; 85025; 85610; 85730; 87086; 87186; 93005; 93010; 94640; 97116-GP; 97161-GP; 99284-25; G0378

== ENCOUNTER 2017-09-07 16:39 | Emergency (ER) | payer OTHER ==
--- NOTE | 2017-09-07 16:49 | PDOC ---
History of Present Illness - General Chief Complaint: Injury Stated Complaint: FOOT INJURY - History of Present Illness Initial Comments: Patient is a 56year old female, with a significant past medical history of HTN, DM1, HLD, neuropathy, who presents to the emergency department complaining of BL lower leg pain after recent trauma to lower extremities while cleaning storage unit. Pt states she was organizing her storage unit, when multiple stacked boxes/objects became dislodged, striking her on the lower legs, including weights and a tire. Pt denies any trauma to any other body part, headstrike, LOC. Notes swelling on dorsal surface of foot with accompanying pain , no loss of sensation or neuro function. Pt with multiple fx in past, currently taking Vitamin D supplements. Has never been diagnosed with osteoporosis. Patient denies chest pain, shortness of breath, headache or dizziness. Denies fever, chills, nausea, vomiting, diarrhea and constipation. Denies dysuria, frequency, urgency and hematuria. Past surgical history: R lower leg vance placement, L wrist ORIF, tubal Social History: Former smoker (quit in 2006), no alcohol or durg use PMD: Dr. Mcqueen Allergies: Allergies Allergy/AdvReac Type Severity Reaction Status Date / Time duloxetine HCl AdvReac Mild dizzy Verified 06/25/17 19:26 [From Cymbalta] gabapentin AdvReac Mild edema Verified 06/25/17 19:26 shellfish derived AdvReac Mild Swelling Verified 06/25/17 19:26 09/07/17 16:45 Past History - Past Medical History Allergies/Adverse Reactions: Allergies Allergy/AdvReac Type Severity Reaction Status Date / Time duloxetine HCl AdvReac Mild dizzy Verified 06/25/17 19:26 [From Cymbalta] gabapentin AdvReac Mild edema Verified 06/25/17 19:26 shellfish derived AdvReac Mild Swelling Verified 06/25/17 19:26 Home Medications: Ambulatory Orders Albuterol Sulfate Inhaler - [Ventolin HFA Inhaler -] 1 - 2 inh IH Q4H PRN #0 inh 04/02/14 Cyclobenzaprine HCl [Flexeril -] 10 mg PO TID PRN 03/03/15 Metformin HCl 500 mg PO DAILY 03/03/15 Lisinopril [Prinivil] 20 mg PO DAILY 08/24/16 Mirtazapine [Remeron -] 7.5 mg PO HS 08/24/16 Insulin Glargine,Hum.rec.anlog [Basaglar Kwikpen U-100] 50 unit SQ HS 11/23/16 Calcium Carbonate/Vitamin D3 [Calcium 600-Vit D3 400 Tablet] 1 each PO DAILY Fenofibrate Nanocrystallized [Fenofibrate] 145 mg PO DAILY 06/26/17 Omeprazole 40 mg PO DAILY 06/26/17 Atorvastatin Ca [Lipitor] 10 mg PO HS #30 tablet 07/04/17 Budesonide/Formeterol Fumarate [SYMBICORT 160/4.5mcg -] 2 puff IH BID #1 inhaler 07/04/17 Enoxaparin [Lovenox -] 40 mg SQ DAILY #30 disp.syrin 07/04/17 Insulin (Novolog) [Novolog -] 10 units SQ TIDAC units 07/04/17 Montelukast Na [Singulair -] 10 mg PO HS #30 tablet 07/04/17 Tiotropium [place] [Spiriva] 1 puff IH DAILY #1 inh 07/04/17 Pregabalin [Lyrica -] 75 mg PO BID #60 capsule MDD 2 08/07/17 Diclofenac Sodium [Voltaren] 2 gm TP TID PRN #3 tube 09/04/17 Docusate Sodium [Colace] 100 mg PO TID #90 capsule 09/04/17 Oxycodone HCl/Acetaminophen [Percocet 10-325 mg Tablet] 1 each PO BID PRN #60 tablet MDD 2 09/04/17 Oxycodone HCl/Acetaminophen [Percocet 5-325 mg Tablet -] 1 tab PO TID PRN #12 tablet MDD pain 09/07/17 Anemia: No Asthma: Yes Cancer: No Cardiac Disorders: No CVA: No COPD: No CHF: No Dementia: No Diabetes: Yes (IDDM with neuropathy) GI Disorders: No Disorders: No HTN: Yes Hypercholesterolemia: Yes Liver Disease: No Seizures: No Thyroid Disease: No - Surgical History Abdominal Surgery: (ECTOPIC) Appendectomy: No Cardiac Surgery: No Cholecystectomy: No Lung Surgery: No Neurologic Surgery: No Orthopedic Surgery: Yes (fx r knee, l elbow sx, orif l wrist, orif r ankle) - Immunization History TDAP Vaccination: No Immunization Up to Date: No - Suicide/Smoking/Psychosocial Hx Smoking Status: No Smoking History: Never smoked Have you smoked in the past 12 months: No Number of Cigarettes Smoked Daily: 0 If you are a former smoker, when did you quit?: 2006 Hx Alcohol Use: No Drug/Substance Use Hx: No Substance Use Type: None Hx Substance Use Treatment: No Review of Systems - Review of Systems Comments:: GENERAL/CONSTITUTIONAL: No fever or chills. No weakness. HEAD, EYES, EARS, NOSE AND THROAT: No change in vision. No ear pain or discharge. No sore throat. CARDIOVASCULAR: No chest pain or shortness of breath RESPIRATORY: No cough, wheezing, or hemoptysis. GASTROINTESTINAL: No nausea, vomiting, diarrhea or constipation. GENITOURINARY: No dysuria, frequency, or change in urination. MUSCULOSKELETAL: +BL lower extremity pain, swelling in dorsal surface of L foot. No muscle swelling or pain. No neck or back pain. SKIN: No rash NEUROLOGIC: No headache, vertigo, loss of consciousness, or change in strength/ sensation. ENDOCRINE: No increased thirst. No abnormal weight change HEMATOLOGIC/LYMPHATIC: No anemia, easy bleeding, or history of blood clots. ALLERGIC/IMMUNOLOGIC: No hives or skin allergy. 09/07/17 16:44 *Physical Exam - Physical Exam Comments: GENERAL: Elderly woman, Awake, alert, and fully oriented, in no acute distress HEAD: No signs of trauma, normocephalic, atraumatic EYES: PERRLA, EOMI, sclera anicteric, conjunctiva clear ENT: Auricles normal inspection, hearing grossly normal, nares patent, oropharynx clear without exudates. Moist mucosa NECK: Normal ROM, supple, no lymphadenopathy, JVD, or masses LUNGS: No distress, speaks full sentences, clear to auscultation bilaterally HEART: Regular rate and rhythm, normal S1 and S2, no murmurs, rubs or gallops, peripheral pulses normal and equal bilaterally. ABDOMEN: Globular. Soft, nontender, normoactive bowel sounds. No guarding, no rebound. No masses EXTREMITIES : Multiple abrasions on anterior lower extremities. L foot dorsal edema on medial, distal margin. Normal inspection, Normal range of motion, no edema. No clubbing or cyanosis. NEUROLOGICAL: Cranial nerves II through XII grossly intact. Normal speech, normal gait, no focal sensorimotor deficits 09/07/17 16:44 Medical Decision Making - Medical Decision Making Patient is a 56year old female, with a significant past medical history of HTN, DM1, HLD, neuropathy, who presents to the emergency department complaining of BL lower leg pain after recent trauma to lower extremities while cleaning storage unit. Will order for L foot and ankle XR, PO pain control. Likely d/c home with VERENICE wrap and PO pain meds. 09/07/17 18:01 BL LE XRs negative for any gross fractures, deformities or significant soft tissue swelling. Pt with stable vitals, good pain control. VERENICE wrap applied to L foot. Pt counseled to apply intermittent VERENICE bandages and to take motrin as needed for pain. All questions answered. Will discharge home. 09/07/17 20:07 *DC/Admit/Observation/Transfer Diagnosis at time of Disposition: Soft tissue swelling - Discharge Dispostion Disposition: HOME Condition at time of disposition: Good Decision to Admit order: No - Prescriptions Prescriptions: Oxycodone HCl/Acetaminophen [Percocet 5-325 mg Tablet -] 1 tab PO TID PRN #12 tablet MDD pain PRN Reason: Severe Pain - Referrals - Patient Instructions Printed Discharge Instructions: How to Prevent Falls, DI for Foot Pain Additional Instructions: During your stay at [facility], you were evaluated for leg trauma. You received standard imaging of your legs to rule out fracture, which was unremarkable for any gross fractures. You are being discharged home with VERENICE bandage and pain control with oral Percocet. We recommend that you follow-up with your primary care physician at your earliest convenience if you require additional pain control and further evaluation. If you experience continued foot pain, please take Percocet 10-325, three times a day by mouth. Please return to the ED if you experience any of the following symptoms - Worsening, persistent pain in your feet - Any new numbness or weakness in your feet - Persistent inability to walk >4 days. - Any new or concerning symptoms. - Post Discharge Activity
[2017-09-07 16:52] VITALS: BP 176/90; PULSE 83; TEMP 98.5; BMI 28.1
[2017-09-07] MEDS ORDERED: oxyCODONE HCL 5 MG TABLET PO ONE ×2 (17:51→20:28)
[2017-09-07] MEDS ORDERED: oxyCODONE HCL 5 MG TABLET ONE ×2 (18:26→20:35)
--- NOTE | 2017-09-07 18:41 | PDOC ---
Attending Attestation - Resident Resident Name: LizSage - ED Attending Attestation I have performed the following: I have examined & evaluated the patient, The case was reviewed & discussed with the resident, I agree w/resident's findings & plan, Exceptions are as noted - HPI HPI: 09/07/17 17:49 Ms marie is a 56 yo F w/ a h/o HTN, DM1, HLD, neuropathy, who presents to the emergency department complaining of BL lower leg pain s/p trauma to lower extremities while cleaning storage unit. She accidentally dropped several heavy objects onto her lower legs. No head trauma no LOC No amnesia - Physicial Exam PE: 09/07/17 18:41 GENERAL: Elderly woman, Awake, alert, and fully oriented, in no acute distress HEAD: No signs of trauma NECK: Normal ROM, supple, no lymphadenopathy, JVD, or masses LUNGS: No distress, speaks full sentences, clear to auscultation bilaterally HEART: Regular rate and rhythm, normal S1 and S2 ABDOMEN: Soft, nontender, normoactive bowel sounds. EXTREMITIES : Multiple abrasions on anterior lower extremities. L foot dorsal edema on medial, distal margin. Normal inspection, Normal range of motion, no edema. No clubbing or cyanosis. NEUROLOGICAL: Cranial nerves II through XII grossly intact. Normal speech - Medical Decision Making 09/07/17 18:43 56 yo F presenting to the ER via EMS s/p mild trauma to the lower extremities Pt has mild swelling Will do xray Will give po pain medications Anticipate discharge Xrays demonstrate no fracture or dislocation Right distal tibia vance noted, in place Clinical impression: musculoskeletal pain, initial presentation 09/07/17 20:32
== END 2017-09-07 21:00 | disposition home or self-care (01) ==
LOC: JER 16:39
DX: M79.89 Other specified soft tissue disorders (principal); I10 Essential (primary) hypertension; E10.40 Type 1 diabetes mellitus with diabetic neuropathy, unspecified; Z79.4 Long term (current) use of insulin; E78.00 Pure hypercholesterolemia, unspecified
CPT/HCPCS: 73590-TC-LT-FY; 73590-TC-RT-FY; 73610-TC-LT-FY; 73630-TC-LT; 99282-25

== ENCOUNTER 2018-01-09 22:37 | Emergency (ER) | payer OTHER ==
[2018-01-09 22:48] VITALS: TEMP 98.8; BMI 39.1
[2018-01-09] MEDS ORDERED: ACETAMINOPHEN 325 MG TABLET (FP) PO ONE (23:33)
[2018-01-09] MEDS ORDERED: TETANUS AND DIPHTHERIA TOXOID 0.5 ML DISP.SYRIN IM ONE (23:33)
--- NOTE | 2018-01-09 23:38 | PDOC ---
History of Present Illness - General History Source: Patient Exam Limitations: No Limitations - History of Present Illness Initial Comments: 01/09/18 23:34 57 y/o f came to hospital because of suspicion of glass in her right foot. Patient states that she accidently stepped over the broken glass. She states she has pulled out some of it but also feels like some is left inside. Reports bleeding but now stopped. Not sure when was te last time she go Tetatnus shot. <Ramu Brown - Last Filed: 01/10/18 01:38> <James Khan - Last Filed: 01/10/18 02:18> - General Chief Complaint: Injury Stated Complaint: RT FOOT INJURY Time Seen by Provider: 01/09/18 23:27 Past History - Past Medical History Anemia: No Asthma: Yes Cancer: No Cardiac Disorders: No CVA: No COPD: No CHF: No Dementia: No Diabetes: Yes (IDDM with neuropathy) GI Disorders: No Disorders: No HTN: Yes Hypercholesterolemia: Yes Liver Disease: No Seizures: No Thyroid Disease: No - Surgical History Abdominal Surgery: Yes (ECTOPIC) Appendectomy: No Cardiac Surgery: No Cholecystectomy: No Lung Surgery: No Neurologic Surgery: No Orthopedic Surgery: Yes (fx r knee, l elbow sx, orif l wrist, orif r ankle) - Immunization History TDAP Vaccination: No Immunization Up to Date: No - Suicide/Smoking/Psychosocial Hx Smoking Status: No Smoking History: Never smoked Have you smoked in the past 12 months: No Number of Cigarettes Smoked Daily: 0 If you are a former smoker, when did you quit?: 2006 Information on smoking cessation initiated: No Hx Alcohol Use: No Drug/Substance Use Hx: No Substance Use Type: None Hx Substance Use Treatment: No <Ramu Brown - Last Filed: 01/10/18 01:38> <James Khan - Last Filed: 01/10/18 02:18> - Past Medical History Allergies/Adverse Reactions: Allergies Allergy/AdvReac Type Severity Reaction Status Date / Time duloxetine HCl AdvReac Mild dizzy Verified 01/09/18 23:39 [From Cymbalta] gabapentin AdvReac Mild edema Verified 01/09/18 23:39 shellfish derived AdvReac Mild Swelling Verified 01/09/18 23:39 Home Medications: Ambulatory Orders Albuterol Sulfate Inhaler - [Ventolin HFA Inhaler -] 1 - 2 inh IH Q4H PRN #0 inh 04/02/14 Cyclobenzaprine HCl [Flexeril -] 10 mg PO TID PRN 03/03/15 metFORMIN HCL [Metformin HCl] 500 mg PO DAILY 03/03/15 Lisinopril [Prinivil] 20 mg PO DAILY 08/24/16 Mirtazapine [Remeron -] 7.5 mg PO HS 08/24/16 Insulin Glargine,Hum.rec.anlog [Basaglar Kwikpen U-100] 60 unit SQ HS 11/23/16 Calcium Carbonate/Vitamin D3 [Calcium 600-Vit D3 400 Tablet] 1 each PO DAILY Fenofibrate Nanocrystallized [Fenofibrate] 145 mg PO DAILY 06/26/17 Omeprazole 40 mg PO DAILY 06/26/17 Atorvastatin Ca [Lipitor] 10 mg PO HS #30 tablet 07/04/17 Budesonide/Formeterol Fumarate [SYMBICORT 160/4.5mcg -] 2 puff IH BID #1 inhaler 07/04/17 Insulin (Novolog) [Novolog -] 10 units SQ TIDAC units 07/04/17 Montelukast Na [Singulair -] 10 mg PO HS #30 tablet 07/04/17 Tiotropium [place] [Spiriva] 1 puff IH DAILY #1 inh 07/04/17 Pregabalin [Lyrica -] 75 mg PO BID #60 capsule MDD 2 08/07/17 Diclofenac Sodium [Voltaren] 2 gm TP TID PRN #3 tube 09/04/17 Docusate Sodium [Colace] 100 mg PO TID #90 capsule 09/04/17 Acetaminophen 325 mg PO BID PRN #60 tablet 11/26/17 Amox-Tr/K Cl [Augmentin - 875Mg Tablet] 1 tab PO BID #14 tablet 01/10/18 *Physical Exam - Vital Signs Last Vital Signs Temp Pulse Resp BP Pulse Ox 98.8 F 48 L 18 177/48 99 01/09/18 22:44 01/09/18 22:44 01/09/18 22:44 01/09/18 22:44 01/09/18 22:44 - Physical Exam Extremity: positive: Other (small incised wound present on plnter aspect of foot , no bleeding, tender to touch, no erythema, small part of glss seen.) <Ramu Brown - Last Filed: 01/10/18 01:38> - Vital Signs Last Vital Signs Temp Pulse Resp BP Pulse Ox 98.8 F 48 L 18 177/48 99 01/09/18 22:44 01/09/18 22:44 01/09/18 22:44 01/09/18 22:44 01/09/18 22:44 <James Khan - Last Filed: 01/10/18 02:18> ED Treatment Course - RADIOLOGY Radiology Studies Ordered: Category Date Time Status FOOT-RIGHT [RAD] Stat Radiology 01/09/18 23:32 Ordered <Ramu Brown - Last Filed: 01/10/18 01:38> - Medications Given in the ED: ED Medications Discontinued Medications Generic Name Dose Route Start Last Admin Trade Name Freq PRN Reason Stop Dose Admin Acetaminophen 650 mg 01/09/18 23:33 01/10/18 00:00 Tylenol - PO 01/09/18 23:34 650 mg ONCE ONE Administration Diphtheria/Tetanus/Acell Pertussis 0.5 ml 01/09/18 23:44 01/10/18 00:01 Boostrix - IM 01/09/18 23:45 0.5 ml .ONCE ONE Administration Tetanus/Diphtheria Toxoids Adsorbed 0.5 ml 01/09/18 23:33 01/10/18 00:02 Decavac IM 01/09/18 23:34 Not Given .ONCE ONE <James Khan - Last Filed: 01/10/18 02:18> Medical Decision Making - Medical Decision Making 01/09/18 23:37 57 y/o f came to hospital because of suspicion of glass in her right foot. Patient states that she accidently stepped over the broken glass. She states she has pulled out some of it but also feels like some is left inside. Reports bleeding but now stopped. Not sure when was te last time she go Tetatnus shot. we will Xray foot AP and lateral we will give po tylenol and IM TT 01/09/18 23:57 small part of glass removed, antibiotic ointment applied, bandaid applied. 01/10/18 01:38 Xray pending. Patient signed out to Dr. Khan. If X- ray shows no foreign body in her foot she can be discharged home with follow up with her pcp <Ramu Brown - Last Filed: 01/10/18 01:38> *DC/Admit/Observation/Transfer <Ramu Brown - Last Filed: 01/10/18 01:38> <ErinJames - Last Filed: 01/10/18 02:18> Diagnosis at time of Disposition: Injury of right foot Qualifiers: Encounter type: initial encounter Qualified Code(s): S99.921A - Unspecified injury of right foot, initial encounter - Discharge Dispostion Disposition: HOME Condition at time of disposition: Stable - Prescriptions Prescriptions: Amox-Tr/K Cl [Augmentin - 875Mg Tablet] 1 tab PO BID #14 tablet - Referrals Referrals: Faisal Mcqueen MD [Primary Care Provider] - - Patient Instructions Printed Discharge Instructions: DI for Puncture Wound Additional Instructions: Keep your feet clean and dry. Use bandaid until wound is healed. Follow up with your pcp. If you see discharge or change in color of skin go to nearest hospital We have sent antibiotics to your pharmacy that you should take twice a day for 1 week. - Post Discharge Activity
--- NOTE | 2018-01-09 23:40 | PDOC ---
Attending Attestation - Resident Resident Name: Ramu Brown - ED Attending Attestation I have performed the following: I have examined & evaluated the patient, The case was reviewed & discussed with the resident, I agree w/resident's findings & plan, Exceptions are as noted - Medical Decision Making 01/09/18 23:40 I, Dr. Saritha Alanis DO, attest that this document has been prepared under my direction and personally reviewed by me in its entirety. I further attest, that it accurately reflects all work, treatment, procedures and medical decision -making performed by me. 01/10/18 00:04 a/p: 57yo female with foreign to R foot -will update tetanus -shard of glass removed -will obtain xray to eval of further glass involvement -no active bleeding -no surrounding erythema or infection <Saritha Alanis - Last Filed: 01/10/18 00:04> - HPI HPI: 01/10/18 00:09 The patient is a 57 year old female with a significant past medical history of diabetes who presents to the ER with a suspicion for a shard of glass on the right foot. Patient reports accidentally stepping over a piece of broken glass prior to arrival. Patient thought she had pulled out most of it but suspects she may still have a piece in there. Patient is not actively bleeding and there is no surrounding erythema. Patient is unsure when her last tetanus shot was given. The patient denies chest pain, shortness of breath, headache, and dizziness. Denies fever, chills, nausea, vomit, diarrhea, and constipation. Denies dysuria, frequency, urgency, and hematuria. Allergies: duloxetine HCl, gabapentin, shellfish Past surgical history: None reported. Social history: No reported alcohol, drug, or cigarette use. PCP: Dr. Faisal Mcqueen Documentation prepared by Norma Betancur, acting as medical staff coordinator for Saritha Alanis DO. - Physicial Exam PE: 01/10/18 00:14 ADULT PHYSICAL EXAM Constitutional: Awake, alert, oriented. No acute distress. Head: Normocephalic. Atraumatic Eyes: PERRL. EOMI. Conjunctivae are not pale. ENT: Mucous membranes are moist and intact. Posterior pharynx without exudates or erythema. Uvula midline. Neck: Supple. Full ROM. No lymphadenopathy. Cardiovascular: Regular rate. Regular rhythm. S1, S2 regular. Distal pulses are 2+ and symmetric. Pulmonary/Chest: No evidence of respiratory distress. Clear to auscultation bilaterally No wheezing, rales or rhonchi. Abdominal: Soft and non-distended. There is no tenderness. No rebound, guarding or rigidity. No organomegaly. No palpable masses. Good bowel sounds. Back: No CVA tenderness. Musculoskeletal: No edema. No cyanosis. No clubbing. Full range of motion in all extremities. Nocalf tenderness. Radial/pedal pulses are intact and 2+ bilaterally Skin: Skin is warm and dry. No petechiae. No purpura. (+) Less than 0.5cm break of the skin with a shard of glass, which was removed from the plantar surface of the right foot. Brisk cap refill. (+) Mild tenderness to the site. Not actively bleeding. No surrounding erythema. Neurological: Alert and oriented to person, place, and time. Cranial nerves II -XII are grossly intact. Normal speech. Strength is grossly symmetric. No sensory deficits. Psychiatric: Good eye contact. Normal interaction, affect and behavior. <Norma Betancur - Last Filed: 01/10/18 00:16>
[2018-01-09] MEDS ORDERED: ACETAMINOPHEN 325 MG TABLET (FP) ONE (23:44)
[2018-01-09] MEDS ORDERED: DIPHTH,PERTUSS(ACELL),TET 0.5 ML DISP.SYRIN IM ONE (23:44)
[2018-01-10 02:34] VITALS: BP 172/72; PULSE 50
== END 2018-01-10 02:34 | disposition home or self-care (01) ==
LOC: JER 22:37
PROC: 3E0234Z Introduction of Serum, Toxoid and Vaccine into Muscle, Percutaneous Approach (ICD-10-PCS; principal; 2018-01-09)
PROC: 3E0234Z Introduction of Serum, Toxoid and Vaccine into Muscle, Percutaneous Approach (ICD-10-PCS; 2018-01-09)
DX: S91.341A Puncture wound with foreign body, right foot, initial encounter (principal); W25.XXXA Contact with sharp glass, initial encounter; W45.8XXA Other foreign body or object entering through skin, initial encounter; Y93.01 Activity, walking, marching and hiking; Y92.89 Other specified places as the place of occurrence of the external cause; Y99.8 Other external cause status; I10 Essential (primary) hypertension; E78.00 Pure hypercholesterolemia, unspecified; E11.42 Type 2 diabetes mellitus with diabetic polyneuropathy; Z87.09 Personal history of other diseases of the respiratory system
CPT/HCPCS: 73630-TC-RT-FY; 90715; 99281-25

== ENCOUNTER 2018-01-29 19:19 | Emergency (ER) | payer OTHER ==
[2018-01-29 19:33] VITALS: BP 143/68; PULSE 68; TEMP 98.8; BMI 39.1
--- NOTE | 2018-01-29 21:16 | PDOC ---
History of Present Illness - General Chief Complaint: Cold Symptoms Stated Complaint: COLD SYMPTOMS Time Seen by Provider: 01/29/18 20:03 - History of Present Illness Initial Comments: 57-year-old female with a past medical history of hypertension and diabetes as well as dyslipidemia presents for evaluation of Malaise and cough times one d 01/29/18 21:13 Past History - Past Medical History Allergies/Adverse Reactions: Allergies Allergy/AdvReac Type Severity Reaction Status Date / Time duloxetine HCl AdvReac Mild dizzy Verified 01/29/18 19:33 [From Cymbalta] gabapentin AdvReac Mild edema Verified 01/29/18 19:33 shellfish derived AdvReac Mild Swelling Verified 01/29/18 19:33 Home Medications: Ambulatory Orders Albuterol Sulfate Inhaler - [Ventolin HFA Inhaler -] 1 - 2 inh IH Q4H PRN #0 inh 04/02/14 Cyclobenzaprine HCl [Flexeril -] 10 mg PO TID PRN 03/03/15 metFORMIN HCL [Metformin HCl] 500 mg PO DAILY 03/03/15 Lisinopril [Prinivil] 20 mg PO DAILY 08/24/16 Mirtazapine [Remeron -] 7.5 mg PO HS 08/24/16 Insulin Glargine,Hum.rec.anlog [Basaglar Kwikpen U-100] 60 unit SQ HS 11/23/16 Calcium Carbonate/Vitamin D3 [Calcium 600-Vit D3 400 Tablet] 1 each PO DAILY Fenofibrate Nanocrystallized [Fenofibrate] 145 mg PO DAILY 06/26/17 Omeprazole 40 mg PO DAILY 06/26/17 Atorvastatin Ca [Lipitor] 10 mg PO HS #30 tablet 07/04/17 Budesonide/Formeterol Fumarate [SYMBICORT 160/4.5mcg -] 2 puff IH BID #1 inhaler 07/04/17 Insulin (Novolog) [Novolog -] 10 units SQ TIDAC units 07/04/17 Montelukast Na [Singulair -] 10 mg PO HS #30 tablet 07/04/17 Tiotropium [place] [Spiriva] 1 puff IH DAILY #1 inh 07/04/17 Pregabalin [Lyrica -] 75 mg PO BID #60 capsule MDD 2 08/07/17 Diclofenac Sodium [Voltaren] 2 gm TP TID PRN #3 tube 09/04/17 Docusate Sodium [Colace] 100 mg PO TID #90 capsule 09/04/17 Oxycodone HCl/Acetaminophen [Endocet 10-325 mg Tablet] 1 each PO BID PRN #60 tablet MDD 2 01/22/18 Anemia: No Asthma: Yes Cancer: No Cardiac Disorders: No CVA: No COPD: No CHF: No Dementia: No Diabetes: Yes (IDDM with neuropathy) GI Disorders: No Disorders: No HTN: Yes Hypercholesterolemia: Yes Liver Disease: No Seizures: No Thyroid Disease: No - Surgical History Abdominal Surgery: Yes (ECTOPIC) Appendectomy: No Cardiac Surgery: No Cholecystectomy: No Lung Surgery: No Neurologic Surgery: No Orthopedic Surgery: Yes (fx r knee, l elbow sx, orif l wrist, orif r ankle) - Immunization History TDAP Vaccination: No Immunization Up to Date: No - Suicide/Smoking/Psychosocial Hx Smoking Status: No Smoking History: Never smoked Have you smoked in the past 12 months: No Number of Cigarettes Smoked Daily: 0 If you are a former smoker, when did you quit?: 2006 Hx Alcohol Use: No Drug/Substance Use Hx: No Substance Use Type: None Hx Substance Use Treatment: No Review of Systems - Review of Systems Constitutional: Yes: Malaise Respiratory: Yes: Cough All Other Systems: Reviewed and Negative *Physical Exam - Vital Signs Last Vital Signs Temp Pulse Resp BP Pulse Ox 98.8 F 68 18 143/68 98 01/29/18 19:30 01/29/18 19:30 01/29/18 19:30 01/29/18 19:30 01/29/18 19:30 - Physical Exam Comments: HEAD: NC/AT EYES: Conjuntiva clear Ears: Canals and TM's normal NOSE: No d/c THROAT: Moist mucous membrances, oral pharanx clear, uvula midline NECK: Supple without adenopathy CARDIAC: S1 S2 LUNGS: CTA Full and Equal breath sounds ABDOMEN: Soft NT ND MS: Full ROM in all joints without edema NEUROLOGIC: No gross sensory or motor deficits, NVID SKIN: Normal color and temperature no lesions or rashes 01/29/18 21:14 ED Treatment Course - ADDITIONAL ORDERS Additional order review: 01/29/18 20:15 Influenza Types A,B Antigen - Final Nasopharyngeal Swab - Final *DC/Admit/Observation/Transfer Diagnosis at time of Disposition: URI (upper respiratory infection) - Discharge Dispostion Disposition: HOME Condition at time of disposition: Stable Decision to Admit order: No - Referrals Referrals: Faisal Mcqueen MD [Primary Care Provider] - - Patient Instructions Printed Discharge Instructions: DI for Viral Upper Respiratory Infection -- Adult Additional Instructions: Return to the emergency room should symptoms worsen or go unresolved. Please follow-up with your primary care provider in one to 2 days for further evaluation and treatment options. Flu swab is negative this is most likely a viral upper respiratory infection. - Post Discharge Activity
== END 2018-01-29 21:16 | disposition home or self-care (01) ==
LOC: JERFT 19:19
DX: J06.9 Acute upper respiratory infection, unspecified (principal); I10 Essential (primary) hypertension; E78.5 Hyperlipidemia, unspecified; E11.42 Type 2 diabetes mellitus with diabetic polyneuropathy; Z79.4 Long term (current) use of insulin
CPT/HCPCS: 87804; 99281-25

== ENCOUNTER 2018-07-15 15:23 | Emergency (ER) | payer OTHER ==
--- NOTE | 2018-07-15 15:38 | PDOC ---
Rapid Medical Evaluation Medical Evaluation: Allergies Allergy/AdvReac Type Severity Reaction Status Date / Time duloxetine HCl AdvReac Mild dizzy Verified 01/29/18 19:33 [From Cymbalta] gabapentin AdvReac Mild edema Verified 01/29/18 19:33 shellfish derived AdvReac Mild Swelling Verified 01/29/18 19:33 I have performed a brief in-person evaluation of this patient. The patient presents with a chief complaint of: Hx of DM, HTN, HLD, chronic pain syndrome Since yesterday, c/o BLE leg; denies trauma, numbness/tingling Pertinent physical exam findings: In NAD I have ordered the following: Labs The patient will proceed to the ED for further evaluation. 07/15/18 15:36
[2018-07-15 15:46] VITALS: TEMP 97.8; BMI 31.3
--- NOTE | 2018-07-15 16:14 | PDOC ---
History of Present Illness - General Chief Complaint: Pain Stated Complaint: WEAKNESS Time Seen by Provider: 07/15/18 15:43 History Source: Patient - History of Present Illness Timing/Duration: other (this am) Severity: severe Past History - Past Medical History Allergies/Adverse Reactions: Allergies Allergy/AdvReac Type Severity Reaction Status Date / Time duloxetine HCl AdvReac Mild dizzy Verified 07/15/18 15:39 [From Cymbalta] gabapentin AdvReac Mild edema Verified 07/15/18 15:39 shellfish derived AdvReac Mild Swelling Verified 07/15/18 15:39 Home Medications: Ambulatory Orders Albuterol Sulfate Inhaler - [Ventolin HFA Inhaler -] 1 - 2 inh IH Q4H PRN #0 inh 04/02/14 metFORMIN HCL [Metformin HCl] 500 mg PO DAILY 03/03/15 Lisinopril [Prinivil] 20 mg PO DAILY 08/24/16 Mirtazapine [Remeron -] 7.5 mg PO HS 08/24/16 Insulin Glargine,Hum.rec.anlog [Basaglar Kwikpen U-100] 60 unit SQ HS 11/23/16 Calcium Carbonate/Vitamin D3 [Calcium 600-Vit D3 400 Tablet] 1 each PO DAILY Fenofibrate Nanocrystallized [Fenofibrate] 145 mg PO DAILY 06/26/17 Omeprazole 40 mg PO DAILY 06/26/17 Atorvastatin Ca [Lipitor] 10 mg PO HS #30 tablet 07/04/17 Budesonide/Formeterol Fumarate [SYMBICORT 160/4.5mcg -] 2 puff IH BID #1 inhaler 07/04/17 Montelukast Na [Singulair -] 10 mg PO HS #30 tablet 07/04/17 Tiotropium [place] [Spiriva] 1 puff IH DAILY #1 inh 07/04/17 Docusate Sodium [Colace] 100 mg PO TID #90 capsule 09/04/17 Diclofenac Sodium [Voltaren] 2 gm TP TID PRN #3 tube 02/19/18 Ergocalciferol [Vitamin D2] 50,000 unit PO Q7D@1000 #4 capsule 03/25/18 Guaifenesin [Mucinex -] 600 mg PO BID PRN #28 tablet.er 03/25/18 Insulin (Novolog) [Novolog -] 5 units SQ TIDAC 05/23/18 Cyclobenzaprine HCl [Flexeril -] 10 mg PO TID PRN #90 tablet 06/23/18 Oxycodone HCl/Acetaminophen [Endocet 10-325 mg Tablet] 1 each PO BID PRN #60 tablet MDD 2 06/23/18 Lidocaine 5% Patch [Lidoderm Patch -] 1 patch TP DAILY #7 patch 07/15/18 Anemia: No Asthma: Yes Cancer: No Cardiac Disorders: No CVA: No COPD: No CHF: No Dementia: No Diabetes: Yes (IDDM with neuropathy) GI Disorders: No Disorders: No HTN: Yes Hypercholesterolemia: Yes Liver Disease: No Seizures: No Thyroid Disease: No - Surgical History Abdominal Surgery: Yes (ECTOPIC) Appendectomy: No Cardiac Surgery: No Cholecystectomy: No Lung Surgery: No Neurologic Surgery: No Orthopedic Surgery: Yes (fx r knee, l elbow sx, orif l wrist, orif r ankle) - Immunization History TDAP Vaccination: No Immunization Up to Date: No - Suicide/Smoking/Psychosocial Hx Smoking Status: No Smoking History: Unknown if ever smoked Have you smoked in the past 12 months: No Number of Cigarettes Smoked Daily: 0 If you are a former smoker, when did you quit?: 2006 Hx Alcohol Use: No Drug/Substance Use Hx: No Substance Use Type: None Hx Substance Use Treatment: No Review of Systems - Review of Systems Constitutional: No: Chills, Fever ABD/GI: No: Constipated, Diarrhea, Nausea, Vomiting, Abdominal cramping : Yes: Flank Pain. No: Burning, Dysuria, Hematuria Musculoskeletal: Yes: Back Pain Neurological: No: Numbness, Tingling, Weakness *Physical Exam - Vital Signs Last Vital Signs Temp Pulse Resp BP Pulse Ox 97.8 F 109 H 20 167/92 100 07/15/18 15:45 07/15/18 15:45 07/15/18 15:45 07/15/18 15:45 07/15/18 15:45 - Physical Exam General Appearance: Yes: Appropriately Dressed, Moderate Distress HEENT: positive: Normal Voice Neck: positive: Supple Respiratory/Chest: negative: Respiratory Distress Gastrointestinal/Abdominal: positive: Normal Bowel Sounds, Soft. negative: Tender, Pulsatile Mass, Distended, Guarding, Rebound Musculoskeletal: negative: CVA Tenderness, Vertebral Tenderness Extremity: positive: Normal Inspection. negative: Swelling Integumentary: positive: Dry, Warm Neurologic: positive: Fully Oriented, Alert, Normal Mood/Affect, Motor Strength 5/5, Other (neg SLR b/l) Moderate Sedation - Procedure Monitoring Vital Signs: Procedure Monitoring Vital Signs Temperature 97.8 F 07/15/18 15:45 Pulse Rate 109 H 07/15/18 15:45 Respiratory Rate 20 07/15/18 15:45 Blood Pressure 167/92 07/15/18 15:45 O2 Sat by Pulse Oximetry (%) 100 07/15/18 15:45 ED Treatment Course - LABORATORY CBC & Chemistry Diagram: 07/15/18 16:08 07/15/18 16:08 Medical Decision Making - Medical Decision Making 07/15/18 16:13 57 yo F, IDDM, neuropathy, HTN, HLD, arthritis, chronic back/neck/LE pain, arthritis, on percocet at home, DVT, no longer on AC, s/p IVC filter, anxiety, here with R lower back pain radiating to flank and b/l LLE, that started this a.m. States current pain similar to her usual pain but worse today. No acute sensory changes, lower extremity weakness, saddle anesthesia or bowel or bladder incontinence. States pain meds at home not helping. No recent trauma. Patient denies any nausea, vomiting, fever, chills, dysuria, hematuria or change in bowel movements. No recent spinal imaging. Denies calf pain, swelling , CP, SOB or palpitations See exam M/l acute on chronic back pain No red flags at this time. i/e cauda equina, infxn, etc -pain control/reassess -labs/ua pending from triage 07/15/18 17:15 Labs only remarkable for BG of 315, no gap. Patient states her HA1c is always elevated. Last record at [facility] was 9.6 in 2017. Follows up with Dr Sharp who is currently in ED and talking with pt. made aware that pt's BG was 315 today and told pt to follow up with him in the am. Pt reports that her back pain is better now. Able to ambulate. Stable for discharge to follow-up with her primary care physician this week *DC/Admit/Observation/Transfer Diagnosis at time of Disposition: Leg pain, right, Hyperglycemia Back pain Qualifiers: Back pain location: low back pain Chronicity: unspecified Back pain laterality : right Sciatica presence: unspecified whether sciatica present Qualified Code(s ): M54.5 - Low back pain - Discharge Dispostion Disposition: HOME Condition at time of disposition: Improved - Prescriptions Prescriptions: Lidocaine 5% Patch [Lidoderm Patch -] 1 patch TP DAILY #7 patch - Referrals Referrals: Faisal Mcqueen MD [Primary Care Provider] - - Patient Instructions Printed Discharge Instructions: Low Back Pain Additional Instructions: Your blood work was only remarkable for blood sugar of 315. You need to follow up with Dr Sharp of endocrine tomorrow for further management You pain imay be due to your chronic pain issues Please use pain patch as directed and continue taking your percocet Please follow up with your PMD this week - Post Discharge Activity
[2018-07-15] MEDS ORDERED: KETOROLAC TROMETHAMINE 60 MG/2 ML VIAL IM ONE (16:18)
[2018-07-15] MEDS ORDERED: traMADol HCL 50 MG TABLET PO ONE (16:18)
[2018-07-15 16:21] LABS: BASO % 0.4 % (0-2.0); EOS % 1.1 % (0-4.5); HEMATOCRIT 40.7 % (32.4-45.2); HEMOGLOBIN 13.4 GM/dL (10.7-15.3); LYMPH % 12.2 % (8-40); MCH 30.6 pg (25.7-33.7); MEAN PLT VOLUME 9.7 fl (7.5-11.1); MONO % 6.6 % (3.8-10.2); NEUT % 79.7 % (42.8-82.8); PLATELET COUNT 116 K/MM3 (134-434); RBC 4.37 M/mm3 (3.60-5.2); RDW 15.3 % (11.6-15.6); WHITE BLOOD COUNT 7.6 K/mm3 (4.0-10.0)
[2018-07-15] MEDS ORDERED: KETOROLAC TROMETHAMINE 60 MG/2 ML VIAL ONE (16:25)
[2018-07-15] MEDS ORDERED: traMADol HCL 50 MG TABLET ONE (16:25)
[2018-07-15 17:09] LABS: ALK PHOS 113 U/L (45-117); ANION GAP 9 MMOL/L (8-16); BILIRUBIN,TOTAL 0.6 mg/dL (0.2-1); BLOOD UREA NITROGEN 19 mg/dL (7-18); CALCIUM 8.8 mg/dL (8.5-10.1); CHLORIDE 103 mmol/L (98-107); CO2 24 mmol/L (21-32); CREATININE 1.2 mg/dL (0.55-1.3); POTASSIUM 4.1 mmol/L (3.5-5.1); SGOT/AST 19 U/L (15-37); SGPT/ALT 27 U/L (13-61); SODIUM 136 mmol/L (136-145); TOT PROT 7.8 g/dl (6.4-8.2)
[2018-07-15 17:18] LABS: URINE APPEARANCE CLEAR; URINE BILIRUBIN NEGATIVE (<2.0 mg/dL); URINE COLOR YELLOW; URINE GLUCOSE (UA) 3+ (NEGATIVE); URINE KETONE NEGATIVE (NEGATIVE); URINE LEUK ESTERASE NEGATIVE (NEGATIVE); URINE NITRITE NEGATIVE (NEGATIVE); URINE PROTEIN NEGATIVE (NEGATIVE); URINE UROBILINOGEN NEGATIVE mg/dL (0.2-1.0)
[2018-07-15 17:28] LABS: GLUCOSE,RANDOM 315 mg/dL (74-106)
[2018-07-15 17:57] VITALS: BP 135/78; PULSE 68
== END 2018-07-15 18:38 | disposition home or self-care (01) ==
LOC: JER 15:23
PROC: 3E0233Z Introduction of Anti-inflammatory into Muscle, Percutaneous Approach (ICD-10-PCS; principal; 2018-07-15)
DX: M54.5 Low back pain (principal); E11.65 Type 2 diabetes mellitus with hyperglycemia; E11.42 Type 2 diabetes mellitus with diabetic polyneuropathy; Z79.4 Long term (current) use of insulin; I10 Essential (primary) hypertension; E78.00 Pure hypercholesterolemia, unspecified; J45.909 Unspecified asthma, uncomplicated; M12.9 Arthropathy, unspecified; F41.9 Anxiety disorder, unspecified; Z86.718 Personal history of other venous thrombosis and embolism; Z95.828 Presence of other vascular implants and grafts
CPT/HCPCS: 36415; 80053; 81003; 85025; 96372; 99281-25

== ENCOUNTER 2018-07-16 08:49 | Inpatient (IN) | payer OTHER ==
[2018-07-16] MEDS ORDERED: ACETAMINOPHEN 1000 MG/100 ML VIAL (NON FORMULARY) IVPB ONE (09:31)
[2018-07-16] MEDS ORDERED: METHOCARBAMOL 500 MG TABLET PO ONE (09:31)
--- NOTE | 2018-07-16 09:31 | PDOC ---
History of Present Illness - History of Present Illness Initial Comments: 07/16/18 10:38 The patient is a 57 year old female, with a significant past medical history of chronic back pain, DVT/PE (2011, treated with anticoagulation which was discontinued about 3 months ago due to frequent falls), who presents to the emergency department after being discharged yesterday for increased pain to her low back and lower extremities with new onset if inability to ambulate secondary to pain today. The patient states she has never experienced back pain this severe in the past. She states the pain radiates down her bilateral lower extremities (R>L). She also reports feeling her lower extremities and abdomen feel swollen and tight today. She denies recent travels. The patient denies chest pain, shortness of breath, headache and dizziness. The patient denies fever, chills, nausea, vomit, diarrhea and constipation. The patient denies dysuria, frequency, urgency and hematuria. Social history: Denies ETOH or tobacco use PCP - Dr. Faisal Mcqueen Peripheral Vascular Tech: Dr. Sharp <Neeru Feliciano - Last Filed: 07/16/18 13:12> - General History Source: Patient Exam Limitations: No Limitations <Emma Vinson - Last Filed: 07/19/18 07:31> - General Chief Complaint: Pain Stated Complaint: BACK PAIN Time Seen by Provider: 07/16/18 09:24 Past History <Neeru Feliciano - Last Filed: 07/16/18 13:12> - Past Medical History Anemia: No Asthma: Yes Cancer: No Cardiac Disorders: No CVA: No COPD: No CHF: No Dementia: No Diabetes: Yes (IDDM with neuropathy) GI Disorders: No Disorders: No HTN: Yes Hypercholesterolemia: Yes Liver Disease: No Seizures: No Thyroid Disease: No - Surgical History Abdominal Surgery: Yes (ECTOPIC) Appendectomy: No Cardiac Surgery: No Cholecystectomy: No Lung Surgery: No Neurologic Surgery: No Orthopedic Surgery: Yes (fx r knee, l elbow sx, orif l wrist, orif r ankle) - Immunization History TDAP Vaccination: No Immunization Up to Date: No - Suicide/Smoking/Psychosocial Hx Smoking Status: No Smoking History: Never smoked Have you smoked in the past 12 months: No Number of Cigarettes Smoked Daily: 0 If you are a former smoker, when did you quit?: 2006 Information on smoking cessation initiated: No Hx Alcohol Use: No Drug/Substance Use Hx: No Substance Use Type: None Hx Substance Use Treatment: No <Emma Vinson - Last Filed: 07/19/18 07:31> - Past Medical History Allergies/Adverse Reactions: Allergies Allergy/AdvReac Type Severity Reaction Status Date / Time duloxetine HCl AdvReac Mild dizzy Verified 07/15/18 15:39 [From Cymbalta] gabapentin AdvReac Mild edema Verified 07/15/18 15:39 shellfish derived AdvReac Mild Swelling Verified 07/15/18 15:39 Home Medications: Ambulatory Orders Albuterol Sulfate Inhaler - [Ventolin HFA Inhaler -] 1 - 2 inh IH Q4H PRN #0 inh 04/02/14 metFORMIN HCL [Metformin HCl] 500 mg PO DAILY 03/03/15 Lisinopril [Prinivil] 20 mg PO DAILY 08/24/16 Mirtazapine [Remeron -] 7.5 mg PO HS 08/24/16 Insulin Glargine,Hum.rec.anlog [Basaglar Kwikpen U-100] 60 unit SQ HS 11/23/16 Calcium Carbonate/Vitamin D3 [Calcium 600-Vit D3 400 Tablet] 1 each PO DAILY Fenofibrate Nanocrystallized [Fenofibrate] 145 mg PO DAILY 06/26/17 Omeprazole 40 mg PO DAILY 06/26/17 Atorvastatin Ca [Lipitor] 10 mg PO HS #30 tablet 07/04/17 Budesonide/Formeterol Fumarate [SYMBICORT 160/4.5mcg -] 2 puff IH BID #1 inhaler 07/04/17 Montelukast Na [Singulair -] 10 mg PO HS #30 tablet 07/04/17 Tiotropium [place] [Spiriva] 1 puff IH DAILY #1 inh 07/04/17 Docusate Sodium [Colace] 100 mg PO TID #90 capsule 09/04/17 Diclofenac Sodium [Voltaren] 2 gm TP TID PRN #3 tube 02/19/18 Ergocalciferol [Vitamin D2] 50,000 unit PO Q7D@1000 #4 capsule 03/25/18 Guaifenesin [Mucinex -] 600 mg PO BID PRN #28 tablet.er 03/25/18 Insulin (Novolog) [Novolog -] 5 units SQ TIDAC 05/23/18 Cyclobenzaprine HCl [Flexeril -] 10 mg PO TID PRN #90 tablet 06/23/18 Oxycodone HCl/Acetaminophen [Endocet 10-325 mg Tablet] 1 each PO BID PRN #60 tablet MDD 2 06/23/18 Lidocaine 5% Patch [Lidoderm Patch -] 1 patch TP DAILY #7 patch 07/15/18 Review of Systems - Review of Systems Able to Perform ROS?: Yes Comments:: 07/16/18 10:39 CONSTITUTIONAL: Absent: fever, no chills, no fatigue EYES: Absent: visual changes ENT: Absent: ear pain, no sore throat CARDIOVASCULAR: Absent: chest pain, no palpitations RESPIRATORY: Absent: cough, no SOB GASTROINTESTINAL: Absent: abdominal pain, no nausea, no vomiting, no constipation, no diarrhea GENITOURINARY: Absent: dysuria, no frequency, no hematuria MUSCULOSKELETAL: (+) R back pain, b/l lower extremity pain and swelling (R>L), inability to ambulate. Absent: no arthralgia SKIN: Absent: rash NEURO: Absent: headache <Neeru Feliciano - Last Filed: 07/16/18 13:12> *Physical Exam - Vital Signs Last Vital Signs Temp Pulse Resp BP Pulse Ox 98.3 F 100 H 20 107/80 100 07/16/18 08:55 07/16/18 08:55 07/16/18 08:55 07/16/18 08:55 07/16/18 08:55 - Physical Exam Comments: 07/16/18 10:41 GENERAL: The patient is in no acute distress. HEAD: Normal with no signs of trauma. EYES: PERRLA, EOMI, sclera anicteric, conjunctiva clear. ENT: Ears normal, nares patent, oropharynx clear without exudates. Moist mucous membranes. NECK: Normal range of motion, supple without lymphadenopathy, JVD, or masses. LUNGS: Breath sounds equal, clear to auscultation bilaterally. No wheezes, and no crackles. HEART:Regular rate and rhythm, normal S1 and S2 without murmur, rub or gallop. ABDOMEN: (+) abdominal fullness, nontender. Soft, normoactive bowel sounds. No guarding, no rebound. No masses palpable. EXTREMITIES: (+) 3+ edema to bilateral lower extremities. skin to bilateral lower extremities feel tight. Normal range of motion, No clubbing or cyanosis. No erythema, or tenderness. NEUROLOGICAL: Cranial nerves II through XII grossly intact. Normal speech. No focal neurological deficits. MUSCULOSKELETAL: Back non-tender to palpation, no CVA tenderness SKIN: Warm, Dry, normal turgor, no rashes or lesions noted. = <Neeru Feliciano - Last Filed: 07/16/18 13:12> - Vital Signs Last Vital Signs Temp Pulse Resp BP Pulse Ox 98.3 F 100 H 20 107/80 100 07/16/18 08:55 07/16/18 08:55 07/16/18 08:55 07/16/18 08:55 07/16/18 08:55 <Emma Vinson - Last Filed: 07/19/18 07:31> Moderate Sedation - Procedure Monitoring Vital Signs: Procedure Monitoring Vital Signs Temperature 98.3 F 07/16/18 08:55 Pulse Rate 100 H 07/16/18 08:55 Respiratory Rate 20 07/16/18 08:55 Blood Pressure 107/80 07/16/18 08:55 O2 Sat by Pulse Oximetry (%) 100 07/16/18 08:55 <Neeru Feliciano - Last Filed: 07/16/18 13:12> - Procedure Monitoring Vital Signs: Procedure Monitoring Vital Signs Temperature 98.3 F 07/16/18 08:55 Pulse Rate 100 H 07/16/18 08:55 Respiratory Rate 20 07/16/18 08:55 Blood Pressure 107/80 07/16/18 08:55 O2 Sat by Pulse Oximetry (%) 100 07/16/18 08:55 <Emma Vinson - Last Filed: 07/19/18 07:31> ED Treatment Course - LABORATORY CBC & Chemistry Diagram: 07/16/18 09:54 07/16/18 10:32 - ADDITIONAL ORDERS Additional order review: 07/16/18 09:54 RBC 4.31 MCV 93.8 MCHC 32.9 RDW 15.5 MPV 10.0 Neutrophils % 75.9 Lymphocytes % 12.5 Monocytes % 9.5 Eosinophils % 1.5 Basophils % 0.6 - Medications Given in the ED: ED Medications Discontinued Medications Generic Name Dose Route Start Last Admin Trade Name Freq PRN Reason Stop Dose Admin Acetaminophen 1,000 mg 07/16/18 09:31 07/16/18 09:59 Ofirmev Injection - IVPB 07/16/18 09:32 1,000 mg ONCE ONE Administration Methocarbamol 500 mg 07/16/18 09:31 07/16/18 09:59 Robaxin - PO 07/16/18 09:32 500 mg ONCE ONE Administration <Neeru Feliciano - Last Filed: 07/16/18 13:12> - LABORATORY CBC & Chemistry Diagram: 07/19/18 05:30 07/19/18 05:30 <Emma Vinson - Last Filed: 07/19/18 07:31> Medical Decision Making - Critical Care Time Total Critical Care Time (minutes): 120 Critical Care Statement: The care of this patient involved high complexity decision making to prevent further life threatening deterioration of the patient 's condition and/or to evaluate & treat vital organ system(s) failure or risk of failure. - Medical Decision Making 07/16/18 10:08 57 yo F History of chronic back pain, prior history of DVT and PE previously treated twice with anticoagulation (first time with Lovenox for 2-1/2 years, second time with?? For 6 months). Was taken off of anticoagulation due to history of frequent falls. Patient presents emergency Department with now 2 days of lower extremity pain and cramping. Patient states she has a history of chronic back pain but this pain is different to her than previous pain. She noted her pain yesterday while out with her grandparents, was unable to tolerate her pain was brought to the emergency department. She was given some medications and discharged home. Patient reports since then she's noticed in addition to her back pain, thigh cramping, leg swelling. She's been unable to ambulate since leaving here. EMS called and patient brought back to ER Differential diagnosis includes but is not limited to: Chronic back pain, lumbar radiculopathy/sciatica, unlikely kidney stone Patient possibly has a recurrent DVT Will do: Labs EKG Tylenol/Robaxin for pain Will do CT of the spine/abdomen and pelvis Will do bilateral duplex Will Re Assess 07/16/18 11:19 EKG - NSR rate of 100 bpm, axis nml, intervals nml, LVH, no st elevations or depressions 07/16/18 11:58 Laboratory Tests 07/15/18 07/15/18 07/16/18 16:08 16:08 09:54 WBC 7.6 11.8 H Hgb 13.4 13.3 Hct 40.7 40.4 Plt Count 116 L D 102 L Sodium Potassium Chloride BUN 19 H Creatinine 1.2 Random Glucose 315 H* B-Natriuretic Peptide 07/16/18 10:32 WBC Hgb Hct Plt Count Sodium 135 L Potassium 3.7 Chloride 101 BUN 33 H Creatinine 3.1 H Random Glucose 253 H B-Natriuretic Peptide 136.8 H Labs demonstrate acute renal insufficiency Will start IV hydration 07/16/18 11:59 CT pending Duplex pending 07/16/18 13:22 CT demonstrates : ovarian pathology US: extensive DVTs Call placed to Dr Clemons Recommends Heparin bolus and erlinda Recommends US IVC and renal US Pt noted to have decreasing platelets (unclear etiology) Call placed to Dr Mary Call placed to Dr Plunkett, pt admitted Will place on tele 07/16/18 16:[address] Harman Pt CT from earlier actually demonstrates extensive thrombus to IVC Call placed to Dr Mary Recommends IR consult 07/16/18 16:[address] Reyes Case referred to him 07/16/18 16:54 US Left adnexal mass 5 x 2 x 3 cm 07/16/18 16:55 Dr Reyes is looking at this patient's study and thinks she is possibly a pelvic mass that bled and caused a hematoma He states, it measure 13 x 5 approximately Pt hematoma may have compressed the pelvic vessels --> DVT HEPARIN WILL BE STOPPED NOW SHE IS NOT A CANDIDATE FOR THROMBOLYSIS CALL PLACED TO [place] [facility] AND LAYO TO UPDATE THEM WILL UPGRADE TO ICU 07/16/18 17:04 07/16/18 17:[address] clemons, resume anticoagulation Case reviewed with ICU They will see this patient Will admit to their service <Emma Vinson - Last Filed: 07/19/18 07:31> *DC/Admit/Observation/Transfer - Attestations Scribe Attestion: 07/16/18 10:42 Documentation prepared by Neeru Feliciano, acting as emergency medical technician for Emma Vinson MD <Neeru Feliciano - Last Filed: 07/16/18 13:12> - Discharge Dispostion Decision to Admit order: Yes <Emma Vinson - Last Filed: 07/19/18 07:31> Diagnosis at time of Disposition: DVT of axillary vein, acute bilateral - Discharge Dispostion Condition at time of disposition: Fair
[2018-07-16] MEDS ORDERED: METHOCARBAMOL 500 MG TABLET ONE (09:39)
[2018-07-16] MEDS ORDERED: ACETAMINOPHEN INJECTION 100 ML IVPB ONE (09:39)
[2018-07-16 10:18] LABS: BASO % 0.6 % (0-2.0); EOS % 1.5 % (0-4.5); HEMATOCRIT 40.4 % (32.4-45.2); HEMOGLOBIN 13.3 GM/dL (10.7-15.3); LYMPH % 12.5 % (8-40); MCH 30.8 pg (25.7-33.7); MCHC 32.9 g/dl (32.0-36.0); MEAN CELL VOLUME 93.8 fl (80-96); MONO % 9.5 % (3.8-10.2); NEUT % 75.9 % (42.8-82.8); PLATELET COUNT 102 K/MM3 (134-434); RBC 4.31 M/mm3 (3.60-5.2); RDW 15.5 % (11.6-15.6); WHITE BLOOD COUNT 11.8 K/mm3 (4.0-10.0)
[2018-07-16 11:02] LABS: INR 1.46 (0.83-1.09); PROTHROMBIN TIME (PATIENT) 17.3 SEC (9.7-13.0)
[2018-07-16 11:04] LABS: ACTIVATED PTT 25.1 SECONDS (25.2-36.5)
[2018-07-16 11:32] LABS: ALBUMIN 3.8 g/dl (3.4-5.0); ALK PHOS 102 U/L (45-117); ANION GAP 10 MMOL/L (8-16); BILIRUBIN,TOTAL 0.9 mg/dL (0.2-1); BLOOD UREA NITROGEN 33 mg/dL (7-18); CALCIUM 8.4 mg/dL (8.5-10.1); CHLORIDE 101 mmol/L (98-107); CO2 24 mmol/L (21-32); CREATININE 3.1 mg/dL (0.55-1.3); GLUCOSE,RANDOM 253 mg/dL (74-106); N-TERMINAL BNP 136.8 pg/ml (5-125); POTASSIUM 3.7 mmol/L (3.5-5.1); SGOT/AST 13 U/L (15-37); SGPT/ALT 22 U/L (13-61); SODIUM 135 mmol/L (136-145); TOT PROT 7.5 g/dl (6.4-8.2)
[2018-07-16] MEDS ORDERED: SODIUM CHLORIDE 1,000 ML IV STA ×2 (11:59→18:48)
--- NOTE | 2018-07-16 12:07 | EKG ---
Test Reason : Blood Pressure : / mmHG Vent. Rate : 100 BPM Atrial Rate : 100 BPM P-R Int : 152 ms QRS Dur : 078 ms QT Int : 356 ms P-R-T Axes : 039 -23 078 degrees QTc Int : 459 ms NORMAL SINUS RHYTHM POSSIBLE LEFT ATRIAL ENLARGEMENT LEFT VENTRICULAR HYPERTROPHY NONSPECIFIC ST AND T WAVE ABNORMALITY ABNORMAL ECG WHEN COMPARED WITH ECG OF 25-JUN-2017 21:52, VENT. RATE HAS INCREASED BY 36 BPM T WAVE INVERSION NO LONGER EVIDENT IN INFERIOR LEADS T WAVE INVERSION NOW EVIDENT IN LATERAL LEADS Confirmed by FABIÁN ROTHMAN, CHUCK ([id number]) on 07/16/2018 12:07:23 PM Referred By: Confirmed By:CHUCK LOCKWOOD MD
[2018-07-16] MEDS ORDERED: HEPARIN NA (PORCINE) 5,000 UNITS/ML 1ML VIAL IVPUSH ONE (13:13)
[2018-07-16] MEDS ORDERED: HEPARIN - 25,000 UNIT in SODIUM CHLORIDE 495 ML IV SCH (13:15)
[2018-07-16] MEDS ORDERED: HEPARIN NA (PORCINE) 5,000 UNITS/ML 1ML VIAL ONE ×2 (13:24→21:31)
[2018-07-16] MEDS ORDERED: HEPARIN INFUSION - 25,000 UNITS/500 ML INFUS.BAG IVPB ONE (13:24)
[2018-07-16 14:08] LABS: ACETONE SERUM NEGATIVE (NEGATIVE)
--- NOTE | 2018-07-16 15:39 | CONSULT ---
Consult - text type - Consultation Consultation Note: 57 year old female, with a significant past medical history of chronic back pain , h/o unprovoked RLE DVT/PE (2014, treated with anticoagulation upuntil id 2016 and then discontinued due to frequent falls), also with superficial vein thrombosis in 06/2017 on prophy lovenox upuntil 3 months ago but was discontinued due to falls. Throbophilia w/u was negative in the past. She presents to the emergency department after being discharged yesterday for increased pain to her low back and lower extremities with new onset if inability to ambulate secondary to pain. The patient states she has never experienced back pain this severe in the past. She states the pain radiates down her bilateral lower extremities (R>L). She also reports feeling her lower extremities and abdomen feel swollen and tight today. She denies falls. She denies fevers. Was seen in the [facility] on 07/15 and came back with worsening lower extremity/back pain/ inability to walk and acute renal failure The patient denies chest pain, shortness of breath, headache and dizziness. The patient denies fever, chills, nausea, vomit, diarrhea and constipation. The patient denies dysuria, frequency, urgency and hematuria. - Past Medical History Asthma: Yes Diabetes: Yes (IDDM with neuropathy) HTN: Yes Hypercholesterolemia: Yes - Surgical History Abdominal Surgery: Yes (ECTOPIC) Orthopedic Surgery: Yes (fx r knee, l elbow sx, orif l wrist, orif r ankle) - Suicide/Smoking/Psychosocial Hx Smoking History: Never smoked Allergies/Adverse Reactions: Allergies Allergy/AdvReac Type Severity Reaction Status Date / Time duloxetine HCl AdvReac Mild dizzy Verified 07/15/18 15:39 [From Cymbalta] gabapentin AdvReac Mild edema Verified 07/15/18 15:39 shellfish derived AdvReac Mild Swelling Verified 07/15/18 15:39 Home Medications: Ambulatory Orders Albuterol Sulfate Inhaler - [Ventolin HFA Inhaler -] 1 - 2 inh IH Q4H PRN #0 inh 04/02/14 metFORMIN HCL [Metformin HCl] 500 mg PO DAILY 03/03/15 Lisinopril [Prinivil] 20 mg PO DAILY 08/24/16 Mirtazapine [Remeron -] 7.5 mg PO HS 08/24/16 Insulin Glargine,Hum.rec.anlog [Basaglar Kwikpen U-100] 60 unit SQ HS 11/23/16 Calcium Carbonate/Vitamin D3 [Calcium 600-Vit D3 400 Tablet] 1 each PO DAILY Fenofibrate Nanocrystallized [Fenofibrate] 145 mg PO DAILY 06/26/17 Omeprazole 40 mg PO DAILY 06/26/17 Atorvastatin Ca [Lipitor] 10 mg PO HS #30 tablet 07/04/17 Budesonide/Formeterol Fumarate [SYMBICORT 160/4.5mcg -] 2 puff IH BID #1 inhaler 07/04/17 Montelukast Na [Singulair -] 10 mg PO HS #30 tablet 07/04/17 Tiotropium [place] [Spiriva] 1 puff IH DAILY #1 inh 07/04/17 Docusate Sodium [Colace] 100 mg PO TID #90 capsule 09/04/17 Diclofenac Sodium [Voltaren] 2 gm TP TID PRN #3 tube 02/19/18 Ergocalciferol [Vitamin D2] 50,000 unit PO Q7D@1000 #4 capsule 03/25/18 Guaifenesin [Mucinex -] 600 mg PO BID PRN #28 tablet.er 03/25/18 Insulin (Novolog) [Novolog -] 5 units SQ TIDAC 05/23/18 Cyclobenzaprine HCl [Flexeril -] 10 mg PO TID PRN #90 tablet 06/23/18 Oxycodone HCl/Acetaminophen [Endocet 10-325 mg Tablet] 1 each PO BID PRN #60 tablet MDD 2 06/23/18 Lidocaine 5% Patch [Lidoderm Patch -] 1 patch TP DAILY #7 patch 07/15/18 - Vital Signs Last Vital Signs Temp Pulse Resp BP Pulse Ox 98.3 F 100 H 20 107/80 100 07/16/18 08:55 07/16/18 08:55 07/16/18 08:55 07/16/18 08:55 07/16/18 08:55 Cor: RSR, No murmurs, No gallops Lungs: Clear to P&A Abd: Soft, Normal bowel sounds, No organomegaly Ext: 3+ edea b/l A/P 57 year old female, with a significant past medical history of chronic back pain , h/o unprovoked RLE DVT/PE (2015, treated with anticoagulation upuntil id 2016 and then discontinued due to frequent falls), also with superficial vein thrombosis in 06/2017 on prophy lovenox upuntil 3 months ago but was discontinued due to falls. Throbophilia w/u was negative in the past. She presents to the emergency department after being discharged yesterday for increased pain to her low back and lower extremities with new onset if inability to ambulate secondary to pain. The patient states she has never experienced back pain this severe in the past. She states the pain radiates down her bilateral lower extremities (R>L). She also reports feeling her lower extremities and abdomen feel swollen and tight today. She denies falls. She denies fevers. Was [facility] and came back with worsening lower extremity/back pain/ inability to walk and acute renal failure Imaging studies -- CT and u/s extensive DVT from ivc to iliacs to b/l lower extremities. Also CT scan shows pelvic ass--on discussion with radiology -- concern for pelvic hematoa. Pelvic hematoma causing ? compression and DVT.Patient denies falls. ? mass ? vasculitis Discussed in great detail with IR and vascular teams. Not a candidate for throbolysis due to presued bleed on imaging Will start heparin drip ---closely onitor in icu with CBC checks If any change in status -- will need CTA despite renal insufficiency Consult RESEARCH/PROGRAM DIRECTOR/renal teams / ? rheum Discussed with patient. Discussed with icu team.
--- NOTE | 2018-07-16 17:36 | CONSULT ---
Consult Consult Specialty:: ICU Referred by:: Dr Clemons Reason for Consultation:: Extensive DVT with pelvic bleed for close monitoring on heparin drip - History of Present Illness Chief Complaint: Back pain History of Present Illness: 57 yo F with PMHx of chronic back pain, asthma, DM, DVT (2015), DVT/PE (2017) s/ p IVC filter, recently off lovenox (for recurrent falls), presenting for increased back pain and lower extremities x3 days and worsening pain with difficulty ambulating x1 day. Pt reports severe back pain radiating down her bilateral lower extremities (R>L), with associated dizziness and swelling and tightness of b/l lower extremities and abdomen today. Patient reports generalized body pains could not confirm chest pain but did not report any SOB, no headaches, no jaw pain, no rash, no joint swellings. Pt presented for similar pain yesterday and was sent home. This morning the b/l leg swelling and pain were unbearable and she returned to ED. She denies recent travels. Per Dr Clemons, prior hypercoagulable workup was negative. Imaging: Showed extensive b/l DVTs with IVC filter and bleeding bilateral adnexal masses Pt currently has an IVC filter. ED contacted Dr Mary who requested Dr Reyes and pt noted not to be a candidate for thrombectomy. Per Dr Clemons Pt may have a vasculitis with critical limb ischemia (thrombosis combined with bleed). Per Dr Clemons, she discussed with Dr Delatorre and Pt will be closely monitored on heparin drip. If she becomes hemodynamically unstable or starts to bleed, she will require an IR emergency procedure. Vitals stable - History Source History Provided By: Patient, Medical Record Limitations to Obtaining History: No Limitations - Past Medical History Cardio/Vascular: Yes: HTN, Hyperlipdemia Pulmonary: Yes: Asthma ...LMP: 07/29/11 Heme/Onc: Yes: Hypercoaguable State (Previous DVTs with treatment) Endocrine: Yes: Diabetes Mellitus - Alcohol/Substance Use Hx Alcohol Use: No - Smoking History Smoking history: Never smoked Have you smoked in the past 12 months: No Aproximately how many cigarettes per day: 0 If you are a former smoker, when did you quit?: 2006 - Social History History of Recent Travel: No Home Medications - Allergies Allergies/Adverse Reactions: Allergies Allergy/AdvReac Type Severity Reaction Status Date / Time duloxetine HCl AdvReac Mild dizzy Verified 07/15/18 15:39 [From Cymbalta] gabapentin AdvReac Mild edema Verified 07/15/18 15:39 shellfish derived AdvReac Mild Swelling Verified 07/15/18 15:39 - Home Medications Home Medications: Ambulatory Orders Albuterol Sulfate Inhaler - [Ventolin HFA Inhaler -] 1 - 2 inh IH Q4H PRN #0 inh 04/02/14 metFORMIN HCL [Metformin HCl] 500 mg PO DAILY 03/03/15 Lisinopril [Prinivil] 20 mg PO DAILY 08/24/16 Mirtazapine [Remeron -] 7.5 mg PO HS 08/24/16 Insulin Glargine,Hum.rec.anlog [Basaglar Kwikpen U-100] 60 unit SQ HS 11/23/16 Calcium Carbonate/Vitamin D3 [Calcium 600-Vit D3 400 Tablet] 1 each PO DAILY Fenofibrate Nanocrystallized [Fenofibrate] 145 mg PO DAILY 06/26/17 Omeprazole 40 mg PO DAILY 06/26/17 Atorvastatin Ca [Lipitor] 10 mg PO HS #30 tablet 07/04/17 Budesonide/Formeterol Fumarate [SYMBICORT 160/4.5mcg -] 2 puff IH BID #1 inhaler 07/04/17 Montelukast Na [Singulair -] 10 mg PO HS #30 tablet 07/04/17 Tiotropium [place] [Spiriva] 1 puff IH DAILY #1 inh 07/04/17 Docusate Sodium [Colace] 100 mg PO TID #90 capsule 09/04/17 Diclofenac Sodium [Voltaren] 2 gm TP TID PRN #3 tube 02/19/18 Ergocalciferol [Vitamin D2] 50,000 unit PO Q7D@1000 #4 capsule 03/25/18 Guaifenesin [Mucinex -] 600 mg PO BID PRN #28 tablet.er 03/25/18 Insulin (Novolog) [Novolog -] 5 units SQ TIDAC 05/23/18 Cyclobenzaprine HCl [Flexeril -] 10 mg PO TID PRN #90 tablet 06/23/18 Oxycodone HCl/Acetaminophen [Endocet 10-325 mg Tablet] 1 each PO BID PRN #60 tablet MDD 2 06/23/18 Lidocaine 5% Patch [Lidoderm Patch -] 1 patch TP DAILY #7 patch 07/15/18 Family Disease History - Family Disease History Family Disease History: Diabetes: Mother (stroke), Sister, Heart Disease: Father , Mother, Other: Mother, Brother (renal), Daughter (RA) Physical Exam Vital Signs: Vital Signs Temperature 98.3 F 07/16/18 13:33 Pulse Rate 84 07/16/18 13:33 Respiratory Rate 18 07/16/18 13:33 Blood Pressure 142/89 07/16/18 13:33 O2 Sat by Pulse Oximetry (%) 100 07/16/18 13:33 Constitutional: Yes: Obese Eyes: Yes: Conjunctiva Clear HENT: Yes: Atraumatic, Other (Dry mucous membrane) Neck: Yes: Supple Cardiovascular: Yes: Tachycardia, S1, S2 Respiratory: Yes: CTA Bilaterally Gastrointestinal: Yes: Normal Bowel Sounds, Abdomen, Obese ...Rectal Exam: Yes: Sphincter Tone Normal, Other (Excoriations) Renal/: No: CVA Tenderness - Left, CVA Tenderness - Right Musculoskeletal: Yes: Back Pain Extremities: Yes: Other (Warm L rader>R Dilated veins Peripheral pulses present R big toe discoloration) Edema: Yes (B/l with varicose veins ) Neurological: Yes: Alert, Oriented. No: Loss of Sensation ...Motor Strength: WNL Labs: CBC, BMP 07/16/18 09:54 07/16/18 10:32 Imaging - Results Cat Scan: Report Reviewed ( CT lumbar spine Findings. Normal alignment of vertebral elements is noted. Normal height the vertebral bodies, intervertebral disc spaces. No evidence of compression deformities, spondylolisthesis or spondylolysis. Normal bony spinal canal. Intact pedicles. No evidence of lytic or blastic lesions. L2-L3. Circumferential disc bulge, extension of the disc into the neural foramina. L3-L4. Mild circumferential disc bulge. L4-L5 Broad-based posterior annular bulge associated with left paracentral/posterolateral disc extrusion extending caudal to the L4-5 disc space into left lateral recess of L5 causing stenosis. Clinically correlate with radiculopathy in distribution of the left L5 nerve. L5-S1. Posterior annular bulge, disc protrusion cannot be entirely excluded. Limited examination of the intraspinal contents due to the beam hardening artifacts, patient's habitus. IVC filter is noted. Impression. No acute bony abnormalities are seen. No evidence of compression deformities, spondylolisthesis or spondylolysis. Normal central bony spinal canal. Limited evaluation of the intraspinal contents due to the beam hardening artifacts, patient's habitus. Within the limitation of examination, there is suggestion of the discogenic changes at the several levels. The finding may be overestimated due to the beam hardening artifacts. L2-L3. Circumferential disc bulge, extension of the disc into the neural foramina. L3-L4. Mild circumferential disc bulge. L4-L5 Broad- based posterior annular bulge associated with left paracentral/posterolateral disc extrusion extending caudal to the L4-5 disc space into left lateral recess of L5 causing stenosis. Clinically correlate with radiculopathy in distribution of the left L5 nerve. L5-S1. Questionable disc bulge.), Other ( Sequential axial images were obtained from the domes of the diaphragm through the symphysis pubis utilizing urinary tract calculi protocol. The lung bases are clear. There is no evidence of calcifications within the kidneys, ureters or urinary bladder suspicious for urinary tract calculi. There is no evidence of hydronephrosis or obstructive uropathy. No significant abnormalities of the liver, spleen, pancreas, or adrenal glands are identified. There is no evidence of intra-abdominal, retroperitoneal lymphadenopathy. There is no evidence of pneumoperitoneum or bowel obstruction. There is no CT evidence of acute appendicitis. Evaluation of the pelvis is limited without the use of any contrast material. The uterus is normal in size and configuration with no uterine masses present. There are ill-defined bilateral, heterogeneous adnexal masses with inflammatory stranding in the adjacent pelvic tissues. The urinary bladder appears thickened and a largely collapsed. The etiology of these findings is uncertain. Diagnostic possibilities would include hemorrhagic ovarian cysts, PID or possibly a pelvic malignancy. Further evaluation with pelvic ultrasonography is recommended. Additional contrast-enhanced imaging or pelvic MRI may also be warranted. There is no evidence of acute bony abnormalities. IMPRESSION: CTap 1. No evidence of urinary tract calculi or obstructive uropathy. 2. Complex, heterogeneous bilateral adnexal masses with pelvic inflammatory changes. Clinical correlation and follow-up ultrasonography and contrast-enhanced imaging recommended) Ultrasound: Report Reviewed ( Transvaginal US Clinical information: ovarian mass evaluation Transvaginal scanning was performed. Visualization is somewhat limited due to the patient's ability to fully tolerate the exam as a result of pre-existing pain. Neither ovary can be definitely visualized. The patient apparently reports a history of prior right oophorectomy. Within the left adnexa a nonspecific approximately 5.4 x 2.5 x 3 cm oval-shaped mildly hypoechoic focus is seen which may be ovarian in origin versus representing a possible small hematoma. MRI evaluation may be considered. No free intraperitoneal fluid is noted. The uterus demonstrates no discrete abnormality. Endometrial thickness appears unremarkable measuring 0.5 cm.), Image Reviewed (B/l Duplex US There is extensive deep venous thrombosis within the common, deep and superficial femoral veins, as well as the popliteal veins bilaterally. The greater saphenous vein is also occluded. Minimal flow is identified within these vessels. IMPRESSION: Extensive, bilateral deep venous thrombosis.), Other (Abdominal US The infrarenal segment of the inferior vena cava cannot be adequately visualized on sonography due to obscuring bowel gas. Review of a CT study performed earlier the same date however demonstrates evidence of acute thrombosis involving the infrarenal segment of the inferior vena cava as well as the common iliac and external iliac veins bilaterally. Diffuse hepatic steatosis.) Assessment/Plan 57 yo F with PMHx of chronic back pain, DVT/PE (2011, treated with anticoagulation which was discontinued about 3 months ago due to frequent falls) , who presents for increased pain to her low back and lower extremities and found to have extensive b/l DVTs with b/l bleeding adnexal masses now on heparin drip and sent to ICU for close monitoring #Hemonc Extensive b/l DVTs Combined thrombosis and bleed- per Dr Clemons could be in setting of vasculitis D/W Dr Clemons- Continue heparin drip CBC Q6H Pt/PTT Fibrinogen Repeat CMP Per Dr Clemons- If pt decompensates will need emergency IR procedure (she said she D/W Dr Delatorre) Vascular Sx consult- ED discussed with Dr Mary -Pt not surgical candidate was referred for IR procedure Rheum consult #Renal PILO Likely prerenal Gentle hydration Dr Adame Consulted Urine lytes Abd US- no chronic renal dx noted #Endo ISS Q6H BGM Q6H NS@83 #Cardio: Hemodynamically stable at this time Cardiac monitoring Heparin drip #Resp Stable #Neuro Stable #FEN IV NS 1L bolus Maintain on D5NS @83/hr NPO for now #PPx Heparin drip #Dispo ICU level care Full code Visit type - Emergency Visit Emergency Visit: Yes ED Registration Date: 07/16/18 Care time: The patient presented to the Emergency Department on the above date and was hospitalized for further evaluation of their emergent condition. - New Patient This patient is new to me today: Yes Date on this admission: 07/16/18 - Critical Care Critical Care patient: Yes Total Critical Care Time (in minutes): 40 Critical Care Statement: The care of this patient involved high complexity decision making to prevent further life threatening deterioration of the patient 's condition and/or to evaluate & treat vital organ system(s) failure or risk of failure.
[2018-07-16] MEDS ORDERED: DEXTROSE 5%-NORMAL SALINE 1,000 ML IV SCH (19:00)
[2018-07-16] MEDS ORDERED: INSULIN (NOVOLOG) ASPART 100 UNITS/ML 10ML VIAL ONE (19:10)
[2018-07-16] MEDS: INSULIN SLIDING SCALE (NOVOLOG) 1 VIAL SQ SCH (19:12)
[2018-07-16 20:15] LABS: BASO % 0.6 % (0-2.0); EOS % 0.7 % (0-4.5); HEMATOCRIT 36.1 % (32.4-45.2); LYMPH % 18.1 % (8-40); MCH 30.7 pg (25.7-33.7); MCHC 33.3 g/dl (32.0-36.0); MEAN CELL VOLUME 92.3 fl (80-96); MEAN PLT VOLUME 10.3 fl (7.5-11.1); MONO % 6.8 % (3.8-10.2); NEUT % 73.8 % (42.8-82.8); PLATELET COUNT 108 K/MM3 (134-434); RBC 3.91 M/mm3 (3.60-5.2); RDW 15.3 % (11.6-15.6); WHITE BLOOD COUNT 8.7 K/mm3 (4.0-10.0)
[2018-07-16 20:28] LABS: INR 1.45 (0.83-1.09); PROTHROMBIN TIME (PATIENT) 17.2 SEC (9.7-13.0)
[2018-07-16 20:31] LABS: ACTIVATED PTT 29.8 SECONDS (25.2-36.5)
[2018-07-16 20:51] LABS: ALBUMIN 3.8 g/dl (3.4-5.0); ALK PHOS 99 U/L (45-117); ANION GAP 11 MMOL/L (8-16); BILIRUBIN,TOTAL 0.5 mg/dL (0.2-1); BLOOD UREA NITROGEN 40 mg/dL (7-18); CALCIUM 8.6 mg/dL (8.5-10.1); CHLORIDE 100 mmol/L (98-107); CO2 23 mmol/L (21-32); CREATININE 2.8 mg/dL (0.55-1.3); GLUCOSE,RANDOM 292 mg/dL (74-106); MAGNESIUM 1.9 mg/dL (1.8-2.4); POTASSIUM 4.1 mmol/L (3.5-5.1); SGOT/AST 16 U/L (15-37); SGPT/ALT 22 U/L (13-61); SODIUM 133 mmol/L (136-145); TOT PROT 7.8 g/dl (6.4-8.2)
[2018-07-16] MEDS ORDERED: oxyCODONE HCL 5 MG TABLET ONE (22:20)
[2018-07-16 22:21] LABS: EPI CELLS 17.1 /HPF (FEW); URINE APPEARANCE CLOUDY; URINE BACTERIA 78.912 /hpf (NEGATIVE); URINE BILIRUBIN NEGATIVE (<2.0 mg/dL); URINE COLOR YELLOW; URINE GLUCOSE (UA) TRACE (NEGATIVE); URINE KETONE NEGATIVE (NEGATIVE); URINE LEUK ESTERASE NEGATIVE (NEGATIVE); URINE NITRITE NEGATIVE (NEGATIVE); URINE PROTEIN NEGATIVE (NEGATIVE); URINE RBC 1 /hpf (0-3); URINE UROBILINOGEN 0.2 mg/dL (0.2-1.0); URINE WBC 6 /hpf (3-5)
--- NOTE | 2018-07-16 22:32 | HP ---
Admitting History and Physical - Past Medical History Cardiovascular: Yes: HTN, Hyperlipdemia Pulmonary: Yes: Asthma ...LMP: 07/29/11 Heme/Onc: Yes: Hypercoaguable State (Previous DVTs with treatment) Endocrine: Yes: Diabetes Mellitus - Smoking History Smoking history: Never smoked Have you smoked in the past 12 months: No Aproximately how many cigarettes per day: 0 If you are a former smoker, when did you quit?: 2006 - Alcohol/Substance Use Hx Alcohol Use: No - Social History History of Recent Travel: No Home Medications - Allergies Allergies/Adverse Reactions: Allergies Allergy/AdvReac Type Severity Reaction Status Date / Time duloxetine HCl AdvReac Mild dizzy Verified 07/15/18 15:39 [From Cymbalta] gabapentin AdvReac Mild edema Verified 07/15/18 15:39 shellfish derived AdvReac Mild Swelling Verified 07/15/18 15:39 - Home Medications Home Medications: Ambulatory Orders Albuterol Sulfate Inhaler - [Ventolin HFA Inhaler -] 1 - 2 inh IH Q4H PRN #0 inh 04/02/14 metFORMIN HCL [Metformin HCl] 500 mg PO DAILY 03/03/15 Lisinopril [Prinivil] 20 mg PO DAILY 08/24/16 Mirtazapine [Remeron -] 7.5 mg PO HS 08/24/16 Insulin Glargine,Hum.rec.anlog [Basaglar Kwikpen U-100] 60 unit SQ HS 11/23/16 Calcium Carbonate/Vitamin D3 [Calcium 600-Vit D3 400 Tablet] 1 each PO DAILY Fenofibrate Nanocrystallized [Fenofibrate] 145 mg PO DAILY 06/26/17 Omeprazole 40 mg PO DAILY 06/26/17 Atorvastatin Ca [Lipitor] 10 mg PO HS #30 tablet 07/04/17 Budesonide/Formeterol Fumarate [SYMBICORT 160/4.5mcg -] 2 puff IH BID #1 inhaler 07/04/17 Montelukast Na [Singulair -] 10 mg PO HS #30 tablet 07/04/17 Tiotropium [place] [Spiriva] 1 puff IH DAILY #1 inh 07/04/17 Docusate Sodium [Colace] 100 mg PO TID #90 capsule 09/04/17 Diclofenac Sodium [Voltaren] 2 gm TP TID PRN #3 tube 02/19/18 Ergocalciferol [Vitamin D2] 50,000 unit PO Q7D@1000 #4 capsule 03/25/18 Guaifenesin [Mucinex -] 600 mg PO BID PRN #28 tablet.er 03/25/18 Insulin (Novolog) [Novolog -] 5 units SQ TIDAC 05/23/18 Cyclobenzaprine HCl [Flexeril -] 10 mg PO TID PRN #90 tablet 06/23/18 Oxycodone HCl/Acetaminophen [Endocet 10-325 mg Tablet] 1 each PO BID PRN #60 tablet MDD 2 06/23/18 Lidocaine 5% Patch [Lidoderm Patch -] 1 patch TP DAILY #7 patch 07/15/18 Family Disease History - Family Disease History Family Disease History: Diabetes: Mother (stroke), Sister, Heart Disease: Father , Mother, Other: Mother, Brother (renal), Daughter (RA) Physical Examination Vital Signs: Vital Signs Temperature 98.2 F 07/16/18 18:11 Pulse Rate 102 H 07/16/18 21:40 Respiratory Rate 18 07/16/18 21:40 Blood Pressure 134/83 07/16/18 21:40 O2 Sat by Pulse Oximetry (%) 98 07/16/18 21:40 Labs: CBC, BMP 07/16/18 19:15 07/16/18 19:15
[2018-07-16] MEDS: oxyCODONE HCL 5 MG TABLET PO PRN (22:35)
[2018-07-17] MEDS: INSULIN SLIDING SCALE (NOVOLOG) 1 VIAL SQ SCH ×6 (00:05→22:02)
[2018-07-17] MEDS ORDERED: CYCLOBENZAPRINE HCL 10 MG TABLET (FP) PO PRN (02:57)
[2018-07-17] MEDS ORDERED: SODIUM CHLORIDE 1,000 ML IV SCH (05:15)
[2018-07-17] MEDS: DOCUSATE SODIUM 100 MG CAPSULE (FP) PO SCH ×3 (06:22→22:02)
[2018-07-17] MEDS: oxyCODONE HCL 5 MG TABLET PO PRN ×3 (06:34→20:54)
[2018-07-17] MEDS: ACETAMINOPHEN 325 MG TABLET (FP) PO PRN ×3 (06:35→20:54)
[2018-07-17] MEDS ORDERED: INSULIN (NOVOLOG) ASPART 100 UNITS/ML 10ML VIAL SQ SCH (07:00)
[2018-07-17 07:14] LABS: BASO % 0.4 % (0-2.0); EOS % 1.7 % (0-4.5); HEMATOCRIT 28.3 % (32.4-45.2); HEMOGLOBIN 9.7 GM/dL (10.7-15.3); MCH 30.8 pg (25.7-33.7); MCHC 34.4 g/dl (32.0-36.0); MEAN CELL VOLUME 89.5 fl (80-96); MEAN PLT VOLUME 10.2 fl (7.5-11.1); MONO % 10.2 % (3.8-10.2); NEUT % 66.7 % (42.8-82.8); PLATELET COUNT 109 K/MM3 (134-434); RBC 3.16 M/mm3 (3.60-5.2); RDW 14.7 % (11.6-15.6); WHITE BLOOD COUNT 7.8 K/mm3 (4.0-10.0)
--- NOTE | 2018-07-17 07:41 | CONSULT ---
- Consultation REQUESTING PROVIDER: CONSULT REQUEST: We have been asked to surgically evaluate this patient for recurrent bilat LE DVTs PCP: Janna Plunkett HPI: Called to eval 57 yo female sent in from PCP office for evaluation of her LE swelling --> r/o recurrent DVTs. Patient has h/o bilat LE DVTs/PE ( unprovoked in 2014). States she was on AC until 2017 --> dc'd because she was high risk for falls. Throbophilia w/u in the past --> NEGATIVE. Patient is followed by Dr. Clemons. Denies any new/recent falls. Denies prolonged immobilization. Denies n/v/f/c. Denies CP, palpitations, SOB, WHITT, hemoptysis. Denies melena, hematochezia. Denies hematuria or flank pain. While in the ED, patient had the following studie performed: 1.) ABD U/S: infrarenal segment of IVC can't be assessed 2/2 to obscurring bowel gas pattern 2.) LE Duplex: Extensive bilat LE DVTs w/i the common, deep & superficial femoral veins as well as popliteal veins bilat. > Saph occluded as well 3.) ABD CT: Complex heterogenous bilat adnexal mass w/ pelvic inflammatory changes. Pelvic mass--on discussion with radiology--concern for pelvic hematoa. (Images reviewed by GILBERT Sheldon to confirm if patient has IVC filter as there is no mention in the official report...she does have a filter in place). 4.) Transvaginal U/S: Left adnexa 5.4 x 2.5 x 3 cm oval-shaped hypoechoic focus PMHx: Asthma, IDDM with neuropathy, HTN, Hypercholesterolemia, Hypercoaguable, Chronic back pain, bilat LE DVTs 2014 & 2017, PE 2017 PSHx: Ectopic, ORIF Left wrist and right ankle, IVC Filter, Right Oopharectomy Home Meds: Albuterol Sulfate Inhaler - [Ventolin HFA Inhaler -] 1 - 2 inh IH Q4H PRN #0 inh metFORMIN HCL [Metformin HCl] 500 mg PO DAILY Lisinopril [Prinivil] 20 mg PO DAILY Mirtazapine [Remeron -] 7.5 mg PO HS Insulin Glargine,Hum.rec.anlog [Basaglar Kwikpen U-100] 60 unit SQ HS Calcium Carbonate/Vitamin D3 [Calcium 600-Vit D3 400 Tablet] 1 each PO DAILY Fenofibrate Nanocrystallized [Fenofibrate] 145 mg PO DAILY Omeprazole 40 mg PO DAILY Atorvastatin Ca [Lipitor] 10 mg PO HS #30 tablet Budesonide/Formeterol Fumarate [SYMBICORT 160/4.5mcg -] 2 puff IH BID #1 inhaler Montelukast Na [Singulair -] 10 mg PO HS #30 tablet Tiotropium [place] [Spiriva] 1 puff IH DAILY #1 inh Docusate Sodium [Colace] 100 mg PO TID #90 capsule Diclofenac Sodium [Voltaren] 2 gm TP TID PRN #3 tube Ergocalciferol [Vitamin D2] 50,000 unit PO Q7D@1000 #4 capsule Guaifenesin [Mucinex -] 600 mg PO BID PRN #28 tablet.er Insulin (Novolog) [Novolog -] 5 units SQ TIDAC Cyclobenzaprine HCl [Flexeril -] 10 mg PO TID PRN #90 tablet Oxycodone HCl/Acetaminophen [Endocet 10-325 mg Tablet] 1 each PO BID PRN #60 tablet MDD 2 Lidocaine 5% Patch [Lidoderm Patch -] 1 patch TP DAILY #7 patch Allergies ROS: CONSTITUTIONAL: Absent: diaphoresis, generalized weakness, malaise, loss of appetite, weight change CARDIOVASCULAR: Absent: syncope, lightheadedness RESPIRATORY: Absent: cough, wheezing, stridor GASTROINTESTINAL:Absent: abdominal distension, diarrhea, constipation GENITOURINARY: Absent: dysuria, frequency, urgency, hesitancy, flank pain MUSCULOSKELETAL: Absent: myalgia, arthralgia, joint swelling, neck pain SKIN: Absent: rash, itching, pallor HEMATOLOGIC/IMMUNOLOGIC: Absent: easy bleeding, easy bruising, lymphadenopathy NEUROLOGIC: Absent: headache, focal weakness, paresthesias, dizziness, seizure, mental status changes, PSYCHIATRIC: Absent: anxiety, depression, suicidal or homicidal ideation, hallucinations. PE: GENERAL: Awake, alert, and fully oriented, nad. HEAD: NC. AT. EYES: PERRL, sclera anicteric, conjunctiva clear. NECK: Normal ROM, supple without lymphadenopathy, JVD, or masses. LUNGS: CTA bilat HEART: RRR ABDOMEN: Soft, nontender, not distended, normoactive bowel sounds, no guarding, no rebound, no masses. No organomegaly. MUSCULOSKELETAL: Mild CVAT UE: 2+ pulses, warm, well-perfused. No cyanosis. Cap refill <2 seconds. No peripheral edema. LE: bilat LE swelling +3. Palpable DP bilat. PSYCH: Cooperative. Good eye contact. Appropriate mood and affect. Last Vital Signs Temp Pulse Resp BP Pulse Ox 99.8 F H 104 H 17 113/75 100 07/17/18 02:00 07/17/18 02:00 07/17/18 02:00 07/17/18 02:00 07/16/18 22:30 INR, PTT INR 1.45 (0.83-1.09) H 07/16/18 19:15 Fibrinogen 334.0 mg/dL (238-498) 07/16/18 19:00 Problem List - Problems (1) DVT of lower extremity, bilateral Assessment/Plan: 57 yo F who presents to [facility] ED w/ c/o increased back pain (chroic) and inability to ambulate secondary to pain, found to have extensive b/l DVTs ( recurrent). Was treated with AC which was dc'd about 3 months ago due to frequent falls. She has an IVC Filter in place. 1. ICU management 2. Hep gtt 3. HemeOnc Consult - Kaci 4. Monitor PT/PTT 5. Patient isn't a surgical candidate --> referred for IR if procedure needed 6. Per Dr Clemons - If pt decompensates will need emergency IR procedure (she said she spoke w/ Dr. Real)] 7. Tight glycemic control 8. Monitor BUN/Cr 2/2 PILO --> Dr. Deep anthony 9. Monitor CBC On behalf of Dr. Mary, thank you for the opportunity to participate in your patient's care. Code(s): I82.403 - ACUTE EMBOLISM AND THOMBOS UNSP DEEP VEINS OF LOW EXTRM, BI Visit type - Case Type Case Type: ED Admission - Emergency Emergency Visit: Yes ED Registration Date: 07/16/18 Care time: The patient presented to the Emergency Department on the above date and was hospitalized for further evaluation of their emergent condition. - New patient This patient is new to me today: Yes Date on this admission: 07/17/18
[2018-07-17 07:42] LABS: ALBUMIN 3.2 g/dl (3.4-5.0); ALK PHOS 83 U/L (45-117); ANION GAP 9 MMOL/L (8-16); BILIRUBIN,TOTAL 0.5 mg/dL (0.2-1); BLOOD UREA NITROGEN 40 mg/dL (7-18); CALCIUM 8.3 mg/dL (8.5-10.1); CHLORIDE 104 mmol/L (98-107); CO2 22 mmol/L (21-32); CREATININE 1.7 mg/dL (0.55-1.3); GLUCOSE,RANDOM 259 mg/dL (74-106); PHOSPHOROUS 3.5 mg/dL (2.5-4.9); POTASSIUM 3.7 mmol/L (3.5-5.1); SGOT/AST 12 U/L (15-37); SGPT/ALT 20 U/L (13-61); SODIUM 135 mmol/L (136-145); TOT PROT 6.7 g/dl (6.4-8.2)
--- NOTE | 2018-07-17 07:43 | PN ---
Physical Exam: SUBJECTIVE: 57 year old female with PMH DVT, IVC filter, CKD, obesity, HTN, HLD , GERD, asthma, endometrial mass, BENITO, vitamin D deficiency on ASA found to have bilateral DVTs and bilateral adnexal masses. Pt was seen and examined today. Pt reported right flank pain, mild abdominal pain and mild bilateral lower extremity pain. OBJECTIVE: Vital Signs Period Temp Pulse Resp BP Sys/Gunter Pulse Ox Last 24 Hr 98.2 F-99.8 F 84-105 13-20 107-142/75-96 97-100 GENERAL: The patient is awake, alert, and fully oriented, in no acute distress. HEAD: Normal with no signs of trauma. EYES: PERRL, extraocular movements intact, sclera anicteric, conjunctiva clear. No ptosis. ENT: Ears normal, nares patent, oropharynx clear without exudates, moist mucous membranes. NECK: Trachea midline, full range of motion, supple. LUNGS: Breath sounds equal, clear to auscultation bilaterally, no wheezes, no crackles, no accessory muscle use. HEART: Regular rate and rhythm, S1, S2 without murmur, rub or gallop. ABDOMEN: Soft, nontender, nondistended, normoactive bowel sounds, no guarding, no rebound, no hepatosplenomegaly, no masses. EXTREMITIES: 2+ pulses, warm, well-perfused. 4+ pitting edema to LLE. 1+ pitting edema to RLE. NEUROLOGICAL: Cranial nerves II through XII grossly intact. PSYCH: Normal mood, normal affect. SKIN: Warm, dry, normal turgor, no rashes or lesions noted Laboratory Results - last 24 hr 07/16/18 07/16/18 07/16/18 09:54 10:32 10:32 WBC 11.8 H RBC 4.31 Hgb 13.3 Hct 40.4 MCV 93.8 MCH 30.8 MCHC 32.9 RDW 15.5 Plt Count 102 L MPV 10.0 Absolute Neuts (auto) 8.9 H Neutrophils % 75.9 Lymphocytes % 12.5 Monocytes % 9.5 Eosinophils % 1.5 Basophils % 0.6 Nucleated RBC % 0 PT with INR 17.30 H INR 1.46 H PTT (Actin FS) 25.1 L Fibrinogen Sodium 135 L Potassium 3.7 Chloride 101 Carbon Dioxide 24 Anion Gap 10 BUN 33 H Creatinine 3.1 H Creat Clearance w eGFR 15.38 POC Glucometer Random Glucose 253 H Calcium 8.4 L Phosphorus Magnesium Total Bilirubin 0.9 AST 13 L ALT 22 Alkaline Phosphatase 102 B-Natriuretic Peptide 136.8 H Total Protein 7.5 Albumin 3.8 Urine Color Urine Appearance Urine pH Ur Specific [place] Urine Protein Urine Glucose (UA) Urine Ketones Urine Blood Urine Nitrite Urine Bilirubin Urine Urobilinogen Ur Leukocyte Esterase Urine WBC (Auto) Urine RBC (Auto) U Epithel Cells (Auto) Urine Bacteria (Auto) Ur Random Sodium Ur Random Potassium Ur Random Chloride Stool Occult Blood Acetone, Qual Negative L 07/16/18 07/16/18 07/16/18 18:41 19:00 19:00 WBC RBC Hgb Hct MCV MCH MCHC RDW Plt Count MPV Absolute Neuts (auto) Neutrophils % Lymphocytes % Monocytes % Eosinophils % Basophils % Nucleated RBC % PT with INR INR PTT (Actin FS) Fibrinogen 334.0 Sodium Potassium Chloride Carbon Dioxide Anion Gap BUN Creatinine Creat Clearance w eGFR POC Glucometer 273 Random Glucose Calcium Phosphorus Magnesium Total Bilirubin AST ALT Alkaline Phosphatase B-Natriuretic Peptide Total Protein Albumin Urine Color Urine Appearance Urine pH Ur Specific [place] Urine Protein Urine Glucose (UA) Urine Ketones Urine Blood Urine Nitrite Urine Bilirubin Urine Urobilinogen Ur Leukocyte Esterase Urine WBC (Auto) Urine RBC (Auto) U Epithel Cells (Auto) Urine Bacteria (Auto) Ur Random Sodium Ur Random Potassium Ur Random Chloride Stool Occult Blood Negative Acetone, Qual 07/16/18 07/16/18 07/16/18 19:15 19:15 19:15 WBC 8.7 RBC 3.91 Hgb 12.0 Hct 36.1 MCV 92.3 MCH 30.7 MCHC 33.3 RDW 15.3 Plt Count 108 L MPV 10.3 Absolute Neuts (auto) 6.4 Neutrophils % 73.8 Lymphocytes % 18.1 D Monocytes % 6.8 Eosinophils % 0.7 Basophils % 0.6 Nucleated RBC % 0 PT with INR 17.20 H INR 1.45 H PTT (Actin FS) 29.8 Fibrinogen Sodium 133 L Potassium 4.1 Chloride 100 Carbon Dioxide 23 Anion Gap 11 BUN 40 H Creatinine 2.8 H Creat Clearance w eGFR 17.30 POC Glucometer Random Glucose 292 H Calcium 8.6 Phosphorus 5.0 H Magnesium 1.9 Total Bilirubin 0.5 AST 16 ALT 22 Alkaline Phosphatase 99 B-Natriuretic Peptide Total Protein 7.8 Albumin 3.8 Urine Color Urine Appearance Urine pH Ur Specific [place] Urine Protein Urine Glucose (UA) Urine Ketones Urine Blood Urine Nitrite Urine Bilirubin Urine Urobilinogen Ur Leukocyte Esterase Urine WBC (Auto) Urine RBC (Auto) U Epithel Cells (Auto) Urine Bacteria (Auto) Ur Random Sodium Ur Random Potassium Ur Random Chloride Stool Occult Blood Acetone, Qual 07/16/18 07/16/18 07/16/18 22:10 22:10 23:50 WBC RBC Hgb Hct MCV MCH MCHC RDW Plt Count MPV Absolute Neuts (auto) Neutrophils % Lymphocytes % Monocytes % Eosinophils % Basophils % Nucleated RBC % PT with INR INR PTT (Actin FS) Fibrinogen Sodium Potassium Chloride Carbon Dioxide Anion Gap BUN Creatinine Creat Clearance w eGFR POC Glucometer 311 Random Glucose Calcium Phosphorus Magnesium Total Bilirubin AST ALT Alkaline Phosphatase B-Natriuretic Peptide Total Protein Albumin Urine Color Yellow Urine Appearance Cloudy Urine pH 5.0 Ur Specific [place] 1.022 Urine Protein Negative Urine Glucose (UA) Trace Urine Ketones Negative Urine Blood Negative Urine Nitrite Negative Urine Bilirubin Negative Urine Urobilinogen 0.2 Ur Leukocyte Esterase Negative Urine WBC (Auto) 6 Urine RBC (Auto) 1 U Epithel Cells (Auto) 17.1 Urine Bacteria (Auto) 78.912 Ur Random Sodium < 18 L Ur Random Potassium 54.4 Ur Random Chloride < 11 L Stool Occult Blood Acetone, Qual 07/17/18 06:18 WBC RBC Hgb Hct MCV MCH MCHC RDW Plt Count MPV Absolute Neuts (auto) Neutrophils % Lymphocytes % Monocytes % Eosinophils % Basophils % Nucleated RBC % PT with INR INR PTT (Actin FS) Fibrinogen Sodium Potassium Chloride Carbon Dioxide Anion Gap BUN Creatinine Creat Clearance w eGFR POC Glucometer 229 Random Glucose Calcium Phosphorus Magnesium Total Bilirubin AST ALT Alkaline Phosphatase B-Natriuretic Peptide Total Protein Albumin Urine Color Urine Appearance Urine pH Ur Specific [place] Urine Protein Urine Glucose (UA) Urine Ketones Urine Blood Urine Nitrite Urine Bilirubin Urine Urobilinogen Ur Leukocyte Esterase Urine WBC (Auto) Urine RBC (Auto) U Epithel Cells (Auto) Urine Bacteria (Auto) Ur Random Sodium Ur Random Potassium Ur Random Chloride Stool Occult Blood Acetone, Qual Active Medications Generic Name Dose Route Start Last Admin Trade Name Freq PRN Reason Stop Dose Admin Acetaminophen 325 mg 07/16/18 20:31 07/17/18 06:35 Tylenol - PO 325 mg Q4H PRN Administration PAIN LEVEL 7 - 10 Atorvastatin Calcium 10 mg 07/17/18 22:00 Lipitor - PO HS [facility] Budesonide/Formoterol Fumarate 2 puff 07/17/18 10:00 Symbicort 160/4.5mcg - IH BID [facility] Calcium Carbonate/Cholecalciferol 1 tab 07/17/18 10:00 Os-Ray 500+D - PO DAILY [facility] Cyclobenzaprine HCl 10 mg 07/17/18 02:57 Flexeril - PO TID PRN BACK PAIN Docusate Sodium 100 mg 07/17/18 06:00 07/17/18 06:22 Colace - PO Not Given TID [facility] Fenofibric Acid 135 mg 07/17/18 10:00 Trilipix - PO DAILY [facility] Heparin Sodium (Porcine) 25, 500 mls @ 20 mls/hr 07/16/18 13:15 07/16/18 21: 41 000 unit/ Sodium Chloride IV 1,150 unit/hr TITR [facility] 23 mls/hr Titration Protocol 1,000 UNIT/HR Sodium Chloride 1,000 mls @ 83 mls/hr 07/17/18 05:15 07/17/18 00:00 Normal Saline - IV 83 mls/hr ASDIR [facility] Administration Insulin Aspart 1 vial 07/17/18 07:00 07/17/18 06:23 Novolog Vial Sliding Scale - SQ 4 units ACHS [facility] Administration Protocol Lidocaine 1 patch 07/17/18 10:00 Lidoderm Patch - TP DAILY [facility] Mirtazapine 7.5 mg 07/17/18 22:00 Remeron - PO HS [facility] Miscellaneous 1 each 07/17/18 22:00 Lidoderm Patch Removal MC DAILY@2200 [facility] Montelukast Sodium 10 mg 07/17/18 22:00 Singulair - PO HS [facility] Non-Formulary Medication 60 unit 07/17/18 22:00 Insulin Glargine,Hum.Rec.Anlog [Basaglar Kwikpen U-100] SQ HS [facility] Oxycodone HCl 5 mg 07/16/18 20:31 07/17/18 06:34 Roxicodone - PO 5 mg Q4H PRN Administration PAIN LEVEL 7 - 10 Pantoprazole Sodium 40 mg 07/17/18 10:00 Protonix - PO DAILY [facility] Tiotropium [place] 2 puff 07/17/18 10:00 Spiriva Respimat DAILY [facility] Cat Scan: Report Reviewed ( CT lumbar spine Findings. Normal alignment of vertebral elements is noted. Normal height the vertebral bodies, intervertebral disc spaces. No evidence of compression deformities, spondylolisthesis or spondylolysis. Normal bony spinal canal. Intact pedicles. No evidence of lytic or blastic lesions. L2-L3. Circumferential disc bulge, extension of the disc into the neural foramina. L3-L4. Mild circumferential disc bulge. L4-L5 Broad-based posterior annular bulge associated with left paracentral/posterolateral disc extrusion extending caudal to the L4-5 disc space into left lateral recess of L5 causing stenosis. Clinically correlate with radiculopathy in distribution of the left L5 nerve. L5-S1. Posterior annular bulge, disc protrusion cannot be entirely excluded. Limited examination of the intraspinal contents due to the beam hardening artifacts, patient's habitus. IVC filter is noted. Impression. No acute bony abnormalities are seen. No evidence of compression deformities, spondylolisthesis or spondylolysis. Normal central bony spinal canal. Limited evaluation of the intraspinal contents due to the beam hardening artifacts, patient's habitus. Within the limitation of examination, there is suggestion of the discogenic changes at the several levels. The finding may be overestimated due to the beam hardening artifacts. L2-L3. Circumferential disc bulge, extension of the disc into the neural foramina. L3-L4. Mild circumferential disc bulge. L4-L5 Broad- based posterior annular bulge associated with left paracentral/posterolateral disc extrusion extending caudal to the L4-5 disc space into left lateral recess of L5 causing stenosis. Clinically correlate with radiculopathy in distribution of the left L5 nerve. L5-S1. Questionable disc bulge.), Other ( Sequential axial images were obtained from the domes of the diaphragm through the symphysis pubis utilizing urinary tract calculi protocol. The lung bases are clear. There is no evidence of calcifications within the kidneys, ureters or urinary bladder suspicious for urinary tract calculi. There is no evidence of hydronephrosis or obstructive uropathy. No significant abnormalities of the liver, spleen, pancreas, or adrenal glands are identified. There is no evidence of intra-abdominal, retroperitoneal lymphadenopathy. There is no evidence of pneumoperitoneum or bowel obstruction. There is no CT evidence of acute appendicitis. Evaluation of the pelvis is limited without the use of any contrast material. The uterus is normal in size and configuration with no uterine masses present. There are ill-defined bilateral, heterogeneous adnexal masses with inflammatory stranding in the adjacent pelvic tissues. The urinary bladder appears thickened and a largely collapsed. The etiology of these findings is uncertain. Diagnostic possibilities would include hemorrhagic ovarian cysts, PID or possibly a pelvic malignancy. Further evaluation with pelvic ultrasonography is recommended. Additional contrast-enhanced imaging or pelvic MRI may also be warranted. There is no evidence of acute bony abnormalities. IMPRESSION: CTap 1. No evidence of urinary tract calculi or obstructive uropathy. 2. Complex, heterogeneous bilateral adnexal masses with pelvic inflammatory changes. Clinical correlation and follow-up ultrasonography and contrast-enhanced imaging recommended) Ultrasound: Report Reviewed ( Transvaginal US Clinical information: ovarian mass evaluation Transvaginal scanning was performed. Visualization is somewhat limited due to the patient's ability to fully tolerate the exam as a result of pre-existing pain. Neither ovary can be definitely visualized. The patient apparently reports a history of prior right oophorectomy. Within the left adnexa a nonspecific approximately 5.4 x 2.5 x 3 cm oval-shaped mildly hypoechoic focus is seen which may be ovarian in origin versus representing a possible small hematoma. MRI evaluation may be considered. No free intraperitoneal fluid is noted. The uterus demonstrates no discrete abnormality. Endometrial thickness appears unremarkable measuring 0.5 cm.), Image Reviewed (B/l Duplex US There is extensive deep venous thrombosis within the common, deep and superficial femoral veins, as well as the popliteal veins bilaterally. The greater saphenous vein is also occluded. Minimal flow is identified within these vessels. IMPRESSION: Extensive, bilateral deep venous thrombosis.), Other (Abdominal US The infrarenal segment of the inferior vena cava cannot be adequately visualized on sonography due to obscuring bowel gas. Review of a CT study performed earlier the same date however demonstrates evidence of acute thrombosis involving the infrarenal segment of the inferior vena cava as well as the common iliac and external iliac veins bilaterally. Diffuse hepatic steatosis.) ASSESSMENT & PLAN 57 yo F with PMHx of chronic back pain, DVT/PE (2011, treated with anticoagulation which was discontinued about 3 months ago due to frequent falls) , who presents for increased pain to her low back and lower extremities and found to have extensive b/l DVTs with b/l bleeding adnexal masses now on heparin drip and sent to ICU for close monitoring #HEM/ONC -Extensive b/l DVTs -Combined thrombosis and bleed- per Dr Clemons could be in setting of vasculitis -D/W Dr Clemons- Continue heparin drip -Heparin drip was subtherapeutic, increased to therapeutic dose -CBC Q6H -Pt/PTT -Fibrinogen -Down trending H/H: 13.3/40.4>>12.0/36.1>>9.7/28.3 --Continue to trend --If continuing to decrease, plan for repeat CT chest/abdomen/pelvis today -Per Dr Clemons- If pt decompensates will need emergency IR procedure (she said she D/W Dr Delatorre) -Vascular Sx consult- ED discussed with Dr Mary -Pt not surgical candidate was referred for IR procedure -Rheum consult -CRP 13.5 07/17/18 #RENAL #PILO -Improving Cr 3.1>>2.8>>1.7 -Likely prerenal -Gentle hydration --Increased from 83 cc/hour to 100 cc/hour -Dr Adame Consulted -Urine lytes -Abd US- no chronic renal dx noted -UA on 07/16/18 negative for UTI #[employer] DEAN #Bilateral adnexal masses -OB consulted #ENDO -Metformin held -ISS Q6H -BGM Q6H >> ACHS -NS@83 #CARDIOLOGY Hemodynamically stable at this time Cardiac monitoring -Heparin drip -ECHO 07/17/18: normal LV function. EF 60-65%. Trace tricuspid regurgitation. #History of HLD -Atorvastatin 10 mg PO HS [facility] -Fenofibrate 135 mg PO daily [facility] #RESPIRATORY Stable #History of Asthma/Bronchitis -Monteleukoast 10 mg PO HS [facility] -Spiriva 2 puff IH daily -Symbicort 2puff IH BID [facility] #GI #History of GERD -Protonix 40 mg PO daily #NEURO Stable #MSK #History of back pain -Lidoderm patch -Oxycodone 5 mg PO Q4H PRN -Acetaminophen 325 mg PO Q4H PRN -Flexeril 10 mg PO TID PRN #FEN IV NS 1L bolus Maintain on NS @100/hr Diabetic diet for today, no plan for procedures #PPx Heparin drip #DISPO ICU level care Full code Visit type - Emergency Visit Emergency Visit: Yes ED Registration Date: 07/16/18 Care time: The patient presented to the Emergency Department on the above date and was hospitalized for further evaluation of their emergent condition. - New Patient This patient is new to me today: Yes Date on this admission: 07/17/18 - Critical Care Critical Care patient: Yes Total Critical Care Time (in minutes): 35 Critical Care Statement: The care of this patient involved high complexity decision making to prevent further life threatening deterioration of the patient 's condition and/or to evaluate & treat vital organ system(s) failure or risk of failure. - Discharge Referral Referred to [facility] Med [facility].: No
[2018-07-17 07:50] LABS: INR 1.38 (0.83-1.09); PROTHROMBIN TIME (PATIENT) 16.3 SEC (9.7-13.0)
[2018-07-17 07:53] LABS: ACTIVATED PTT 38.8 SECONDS (25.2-36.5)
[2018-07-17] MEDS: HEPARIN INFUSION - 25,000 UNITS/500 ML INFUS.BAG IVPB SCH (08:30)
[2018-07-17] MEDS ORDERED: HEPARIN NA (PORCINE) 5,000 UNITS/ML 1ML VIAL IVPUSH ONE (08:58)
[2018-07-17] MEDS ORDERED: HEPARIN NA (PORCINE) 5,000 UNITS/ML 1ML VIAL IVPUSH PRN (08:58)
[2018-07-17] MEDS ORDERED: LISINOPRIL 20 MG TABLET (FP) PO SCH (10:00)
[2018-07-17] MEDS ORDERED: metFORMIN HCL 500 MG TABLET (FP) PO SCH (10:00)
[2018-07-17] MEDS ORDERED: LIDOCAINE 5% TOPICAL PATCH TP SCH (10:00)
--- NOTE | 2018-07-17 11:07 | CONSULT ---
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 Pt currently in the ICU on heparin gtt and IVF. C/o of leg pain and swelling. No SOB, CP, palpitations. Denies any hx of CKD. Was on ACEi and NSAIDs at home. Denies any flank pain now or hematuira. No fever, chills, N/V/D. Is currently NPO. Making urine. PMHx: as above Allergies: Gabapentin, uloxetine Family Hx: NC Social Hx: No T/A/D ROS: as per HPI Home Medications Medication Instructions Recorded Albuterol Sulfate Inhaler - 1 - 2 inh IH Q4H PRN #0 inh 04/02/14 [Ventolin HFA Inhaler -] metFORMIN HCL [Metformin HCl] 500 mg PO DAILY 03/03/15 Lisinopril [Prinivil] 20 mg PO DAILY 08/24/16 Mirtazapine [Remeron -] 7.5 mg PO HS 08/24/16 Insulin Glargine,Hum.rec.anlog 60 unit SQ HS 11/23/16 [Basaglar Kwikpen U-100] Calcium Carbonate/Vitamin D3 1 each PO DAILY 06/26/17 [Calcium 600-Vit D3 400 Tablet] Fenofibrate Nanocrystallized 145 mg PO DAILY 06/26/17 [Fenofibrate] Omeprazole 40 mg PO DAILY 06/26/17 Atorvastatin Ca [Lipitor] 10 mg PO HS #30 tablet 07/04/17 Budesonide/Formeterol Fumarate 2 puff IH BID #1 inhaler 07/04/17 [SYMBICORT 160/4.5mcg -] Montelukast Na [Singulair -] 10 mg PO HS #30 tablet 07/04/17 Tiotropium [place] [Spiriva] 1 puff IH DAILY #1 inh 07/04/17 Docusate Sodium [Colace] 100 mg PO TID #90 capsule 09/04/17 Diclofenac Sodium [Voltaren] 2 gm TP TID PRN #3 tube 02/19/18 Ergocalciferol [Vitamin D2] 50,000 unit PO Q7D@1000 #4 capsule 03/25/18 Guaifenesin [Mucinex -] 600 mg PO BID PRN #28 tablet.er 03/25/18 Insulin (Novolog) [Novolog -] 5 units SQ TIDAC 05/23/18 Cyclobenzaprine HCl [Flexeril -] 10 mg PO TID PRN #90 tablet 06/23/18 Oxycodone HCl/Acetaminophen 1 each PO BID PRN #60 tablet MDD 2 06/23/18 [Endocet 10-325 mg Tablet] Lidocaine 5% Patch [Lidoderm Patch 1 patch TP DAILY #7 patch 07/15/18 -] Vital Signs Temperature 99.8 F H 07/17/18 02:00 Pulse Rate 104 H 07/17/18 02:00 Respiratory Rate 17 07/17/18 02:00 Blood Pressure 113/75 07/17/18 02:00 O2 Sat by Pulse Oximetry (%) 100 07/16/18 22:30 Intake & Output 07/14/18 07/15/18 07/16/18 07/17/18 23:59 23:59 23:59 23:59 Intake Total 1272 Output Total 400 Balance 872 Weight 115.167 kg 117.6 kg NAD awake and alert neck supple, no JVD RRR, no M/R CTA, no rales soft, obese, NT/ND no bladder distension ++ edema in LE extending to pelvis no focal neurologic defects CBC, BMP 07/17/18 05:30 07/17/18 06:00 Laboratory Tests 07/15/18 07/16/18 07/16/18 16:08 10:32 19:15 Creatinine 1.2 3.1 H 2.8 H 07/17/18 06:00 Creatinine 1.7 H Laboratory Tests 07/16/18 07/17/18 22:10 06:00 Calcium 8.3 L Phosphorus 3.5 Magnesium 2.0 Albumin 3.2 L Urine Protein Negative Urine Blood Negative Urine RBC (Auto) 1 Current Medications Acetaminophen (Tylenol -) 325 mg PO Q4H PRN PRN Reason: PAIN LEVEL 7 - 10 Last Admin: 07/17/18 06:35 Dose: 325 mg Atorvastatin Calcium (Lipitor -) 10 mg PO HS [facility] Budesonide/Formoterol Fumarate (Symbicort 160/4.5mcg -) 2 puff IH BID [facility] Calcium Carbonate/Cholecalciferol (Os-Ray 500+D -) 1 tab PO DAILY [facility] Cyclobenzaprine HCl (Flexeril -) 10 mg PO TID PRN PRN Reason: BACK PAIN Docusate Sodium (Colace -) 100 mg PO TID [facility] Last Admin: 07/17/18 06:22 Dose: Not Given Fenofibric Acid (Trilipix -) 135 mg PO DAILY [facility] Heparin Sodium (Porcine) (Heparin -) 4,700 unit 40 unit/kg (4700 unit) IVPUSH PRN PRN PRN Reason: For aPTT 35 to 45 seconds Heparin Sodium (Porcine) (Heparin -) 9,400 unit 80 unit/kg (9400 unit) IVPUSH PRN PRN PRN Reason: aPTT <35 seconds Sodium Chloride (Normal Saline -) 1,000 mls @ 83 mls/hr IV ASDIR [facility] [place] Last Admin: 07/17/18 00:00 Dose: 83 mls/hr Heparin Sodium/Dextrose (Heparin Infusion -) 25,000 units in 500 mls @ 42.336 mls/hr IVPB TITR [facility]; Protocol Insulin Aspart (Novolog Vial Sliding Scale -) 1 vial SQ ACHS [facility]; Protocol Last Admin: 07/17/18 06:23 Dose: 4 units Lidocaine (Lidoderm Patch -) 1 patch TP DAILY [facility] Mirtazapine (Remeron -) 7.5 mg PO HS [facility] [place] Miscellaneous (Lidoderm Patch Removal) 1 each MC DAILY@2200 [facility] Montelukast Sodium (Singulair -) 10 mg PO HS [facility] Non-Formulary Medication (Insulin Glargine,Hum.Rec.Anlog [Basaglar Kwikpen U-100 ]) 60 unit SQ HS [facility] Oxycodone HCl (Roxicodone -) 5 mg PO Q4H PRN PRN Reason: PAIN LEVEL 7 - 10 Last Admin: 07/17/18 06:34 Dose: 5 mg Pantoprazole Sodium (Protonix -) 40 mg PO DAILY [facility] Tiotropium [place] (Spiriva Respimat) 2 puff IH DAILY [facility] 57 year old woman with 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 #Non-oliguric Acute Kidney Injury r/o renal vein thrombosis vs ATN (NSAID + ACEi ) vs. volume depletion #Extensive LE DVT #DM #Anemia/Thrombocytopenia #Hyponatremia #Asthma Renal function appears to be gradually improving since admission, no overt electrolyte abnormalities and pt is non-oliguric and therefore will not [employer] C[employer]. Urine studies show no blood and very low urine na indicating preserved tubular function. Would continue aggressive IVF hydration pending ECHO results. If LV function is normal would try to hydrate ~2.5L daily with isotonic saline. Trend renal function and electrolytes daily. Can do IV contrast study if needed if if Cr remains > 1.5 pt is at higher risk of contrast nephropathy and pt should be informed of risk. Continue Heparin as per Heme, trend H/H and plts counts Monitor finger sticks Trend serum na, no need for 3% saline at this time Thank you Will follow Francisco Serrano DO
[2018-07-17] MEDS ORDERED: PT OWN MED DRAWER 7, Y5N ONE ×2 (11:20→19:58)
[2018-07-17] MEDS: CALCIUM 500MG/VIT-D 200 UNITS COMBO TABLET (FP) PO SCH (11:21)
[2018-07-17] MEDS: PANTOPRAZOLE 40 MG TABLET (FP) PO SCH (11:21)
[2018-07-17] MEDS: TIOTROPIUM BROMIDE 2.5 MCG (SPIRIVA) RESPIMAT INHALER IH SCH (11:22)
[2018-07-17] MEDS: FENOFIBRIC ACID 135 MG CAP PO SCH (11:22)
[2018-07-17] MEDS: BUDESONIDE/FORMETEROL FUMARATE 160/4.5 mcg INHALER IH SCH ×2 (11:22→22:02)
[2018-07-17] MEDS: LIDOCAINE 5% TOPICAL PATCH TP SCH (11:23)
[2018-07-17] MEDS: SODIUM CHLORIDE 1,000 ML IV SCH (12:00)
--- NOTE | 2018-07-17 12:17 | ECHO ---
Name: WOLF MARINA Exam:Adult Echocardiogram Study Date: 07/17/2018 08:46 AM Age: 57 yrs Reason For Study: DVT Height: 67 in Weight: 247 lb BSA: 2.2 m2 BP: 130/84 mmHg MMode/2D Measurements & Calculations IVSd: 1.3 cm Ao root diam: 3.0 cm LVIDd: 4.5 cm LA dimension: 3.2 cm LVIDs: 3.2 cm LVPWd: 1.2 cm EDV(Teich): 94.3 ml LVOT diam: 1.9 cm ESV(Teich): 42.4 ml TAPSE: 1.7 cm Doppler Measurements & Calculations MV E max raymundo: 48.0 cm/sec Ao V2 max: 133.8 cm/sec MV A max raymundo: 79.5 cm/sec Ao max P.2 mmHg MV E/A: 0.60 Ao V2 mean: 79.6 cm/sec Ao mean P.2 mmHg Ao V2 VTI: 16.4 cm MAO(I,D): 2.8 cm2 MAO(V,D): 2.2 cm2 LV V1 max P.9 mmHg SV(LVOT): 46.0 ml LV V1 mean P.9 mmHg LV V1 max: 99.0 cm/sec LV V1 mean: 63.0 cm/sec LV V1 VTI: 15.6 cm Med Peak E' Raymundo: 4.4 cm/sec Med E/e': 11.0 Lat Peak E' Raymundo: 9.9 cm/sec Lat E/e': 4.8 Procedure A complete two-dimensional transthoracic echocardiogram was performed (2D, M-mode, Doppler and color flow Doppler). Left Ventricle The left ventricular size, thickness and function are normal. The left ventricular ejection fraction is normal. Ejection Fraction = 60-65%. The left ventricular wall motion is normal. Right Ventricle The right ventricle is normal in size and function. Atria Normal left and right atrial size and function. Mitral Valve There is no mitral regurgitation noted. Tricuspid Valve There is trace tricuspid regurgitation. There was insufficient TR detected to calculate RV systolic p ressure. Aortic Valve The aortic valve is trileaflet. No hemodynamically significant valvular aortic stenosis. No aortic regurgitation is present. Pulmonic Valve There is no pulmonic valvular regurgitation. Great Vessels The aortic root is normal size. Pericardium/Pleura There is no pericardial effusion. Interpretation Summary The left ventricular size, thickness and function are normal The right ventricle is normal in size and function. There is trace tricuspid regurgitation. MD Daniel Whitmore 07/17/2018 12:17 PM
--- NOTE | 2018-07-17 12:46 | PN ---
Teaching Attending Note Name of Resident: Love Richardson ATTENDING PHYSICIAN STATEMENT I saw and evaluated the patient. I reviewed the resident's note and discussed the case with the resident. I agree with the resident's findings and plan as documented. SUBJECTIVE: Pt seen and examined in the ICU. Still with bilateral leg edema, denies numbness or weakness, pulses palpable. Denies shortness of breath or chest pain. H/H dropping from yesterday on heparin gtt. OBJECTIVE: Vital Signs Period Temp Pulse Resp BP Sys/Gunter Pulse Ox Last 24 Hr 98.2 F-99.8 F 84-105 13-18 113-142/75-96 97-100 Intake & Output 07/14/18 07/15/18 07/16/18 07/17/18 23:59 23:59 23:59 23:59 Intake Total 1272 Output Total 400 Balance 872 Weight 115.167 kg 117.6 kg Gen: anxious, mildly tachypneic at rest Heart: RRR Lung: decreased breath sounds at the bases Abd: soft, nontender Ext: + edema CBC, BMP 07/17/18 05:30 07/17/18 06:00 Active Medications Acetaminophen (Tylenol -) 325 mg PO Q4H PRN PRN Reason: PAIN LEVEL 7 - 10 Last Admin: 07/17/18 11:37 Dose: 325 mg Atorvastatin Calcium (Lipitor -) 10 mg PO HS [facility] Budesonide/Formoterol Fumarate (Symbicort 160/4.5mcg -) 2 puff IH BID [facility] Last Admin: 07/17/18 11:22 Dose: 2 puff Calcium Carbonate/Cholecalciferol (Os-Ray 500+D -) 1 tab PO DAILY [facility] Last Admin: 07/17/18 11:21 Dose: 1 tab Cyclobenzaprine HCl (Flexeril -) 10 mg PO TID PRN PRN Reason: BACK PAIN Docusate Sodium (Colace -) 100 mg PO TID [facility] Last Admin: 07/17/18 06:22 Dose: Not Given Fenofibric Acid (Trilipix -) 135 mg PO DAILY [facility] Last Admin: 07/17/18 11:22 Dose: 135 mg Heparin Sodium (Porcine) (Heparin -) 4,700 unit 40 unit/kg (4700 unit) IVPUSH PRN PRN PRN Reason: For aPTT 35 to 45 seconds Heparin Sodium (Porcine) (Heparin -) 9,400 unit 80 unit/kg (9400 unit) IVPUSH PRN PRN PRN Reason: aPTT <35 seconds Heparin Sodium/Dextrose (Heparin Infusion -) 25,000 units in 500 mls @ 42.336 mls/hr IVPB TITR [facility]; Protocol Sodium Chloride (Normal Saline -) 1,000 mls @ 100 mls/hr IV ASDIR [facility] Insulin Aspart (Novolog Vial Sliding Scale -) 1 vial SQ ACHS [facility]; Protocol Last Admin: 07/17/18 11:42 Dose: 6 units Lidocaine (Lidoderm Patch -) 1 patch TP DAILY [facility] Last Admin: 07/17/18 11:23 Dose: 1 patch Mirtazapine (Remeron -) 7.5 mg PO HS [facility] Miscellaneous (Lidoderm Patch Removal) 1 each MC DAILY@2200 [facility] Montelukast Sodium (Singulair -) 10 mg PO HS [facility] Non-Formulary Medication (Insulin Glargine,Hum.Rec.Anlog [Basaglar Kwikpen U-100 ]) 60 unit SQ HS [facility] Oxycodone HCl (Roxicodone -) 5 mg PO Q4H PRN PRN Reason: PAIN LEVEL 7 - 10 Last Admin: 07/17/18 11:38 Dose: 5 mg Pantoprazole Sodium (Protonix -) 40 mg PO DAILY [facility] Last Admin: 07/17/18 11:21 Dose: 40 mg Tiotropium [place] (Spiriva Respimat) 2 puff IH DAILY [facility] Last Admin: 07/17/18 11:22 Dose: 2 puff ASSESSMENT AND PLAN: r/o Pelvic Hemorrhage/Hematoma Acute Blood Loss Anemia Acute Bilateral Extensive DVTs h/o IVC filter Acute Kidney Injury Asthma Anemia Thrombocytopenia - monitor H/H - transfuse as needed - continue anticoagulation - pulse checks - if H/H dropping, repeat CT A/P - IVF - monitor urine output, creatinine - CT A/P with contrast once renal failure resolves - O2 to keep SpO2 >90% - inhaled bronchodilators as needed - continue ICU monitoring critical care time spent in reviewing chart, evaluating patient and formulating plan 35 min
[2018-07-17 12:59] LABS: BASO % 0.4 % (0-2.0); EOS % 1.9 % (0-4.5); HEMATOCRIT 31.4 % (32.4-45.2); HEMOGLOBIN 10.7 GM/dL (10.7-15.3); LYMPH % 27.5 % (8-40); MCHC 34.1 g/dl (32.0-36.0); MEAN PLT VOLUME 10.5 fl (7.5-11.1); MONO % 10.2 % (3.8-10.2); PLATELET COUNT 113 K/MM3 (134-434); RBC 3.45 M/mm3 (3.60-5.2); RDW 15.2 % (11.6-15.6); WHITE BLOOD COUNT 8.3 K/mm3 (4.0-10.0)
[2018-07-17 13:19] LABS: INR 1.42 (0.83-1.09); PROTHROMBIN TIME (PATIENT) 16.8 SEC (9.7-13.0)
[2018-07-17 14:47] LABS: ALBUMIN 3.3 g/dl (3.4-5.0); ALK PHOS 85 U/L (45-117); ANION GAP 9 MMOL/L (8-16); BILIRUBIN,TOTAL 0.6 mg/dL (0.2-1); BLOOD UREA NITROGEN 41 mg/dL (7-18); CALCIUM 8.5 mg/dL (8.5-10.1); CHLORIDE 103 mmol/L (98-107); CO2 23 mmol/L (21-32); CREATININE 1.6 mg/dL (0.55-1.3); GLUCOSE,RANDOM 275 mg/dL (74-106); POTASSIUM 4.4 mmol/L (3.5-5.1); SGOT/AST 26 U/L (15-37); SGPT/ALT 22 U/L (13-61); SODIUM 135 mmol/L (136-145)
[2018-07-17 17:56] LABS: BASO % 0.9 % (0-2.0); EOS % 1.8 % (0-4.5); HEMATOCRIT 29.4 % (32.4-45.2); HEMOGLOBIN 10.2 GM/dL (10.7-15.3); LYMPH % 32.9 % (8-40); MCH 31.6 pg (25.7-33.7); MCHC 34.8 g/dl (32.0-36.0); MEAN CELL VOLUME 90.7 fl (80-96); MEAN PLT VOLUME 10.1 fl (7.5-11.1); MONO % 10.7 % (3.8-10.2); NEUT % 53.7 % (42.8-82.8); PLATELET COUNT 114 K/MM3 (134-434); RBC 3.24 M/mm3 (3.60-5.2); WHITE BLOOD COUNT 7.4 K/mm3 (4.0-10.0)
--- NOTE | 2018-07-17 21:12 | PN ---
Progress Note (short form) - Note Progress Note: patient seen and examined feels better Last Vital Signs Temp Pulse Resp BP Pulse Ox 98.6 F 93 H 18 123/83 97 07/18/18 02:00 07/18/18 02:00 07/18/18 02:00 07/18/18 02:00 07/17/18 22:00 Cor: RSR, No murmurs, No gallops Lungs: Clear to P&A Abd: Soft, Normal bowel sounds, No organomegaly Ext:3 + edema b/l labs/meds reviewed a/p 57 year old female, with a significant past medical history of chronic back pain , h/o unprovoked RLE DVT/PE (2014, treated with anticoagulation upuntil id 2016 and then discontinued due to frequent falls), also with superficial vein thrombosis in 06/2017 on prophy lovenox upuntil 3 months ago but was discontinued due to falls. Thrombophilia w/u was negative in the past. She presents to the emergency department after being discharged yesterday for increased pain to her low back and lower extremities with new onset if inability to ambulate secondary to pain. The patient states she has never experienced back pain this severe in the past. She states the pain radiates down her bilateral lower extremities (R>L). She also reports feeling her lower extremities and abdomen feel swollen and tight today. She denies falls. She denies fevers. Was seen in the ER andkalirvasiliy mahoney on 07/15 and came back with worsening lower extremity/back pain/ inability to walk and acute renal failure Imaging studies -- CT and u/s extensive DVT from ivc to iliacs to b/l lower extremities. Also CT scan shows pelvic ass--on discussion with radiology -- concern for pelvic hematoa. Pelvic hematoma causing ? compression and DVT.Patient denies falls. ? mass ? vasculitis on heparin drip ---closely monitor in icu with CBC checks If any change in status -- will need CTA despite renal insufficiency discussed with [facility] edge [facility] team --will recheck ct pelvis in am as patient is on anticoagulation
[2018-07-17] MEDS ORDERED: PATIENT'S OWN MEDICATION (NON-FORMULARY) (Insulin Glargine,Hum.Rec.Anlog [Basaglar Kwikpen SQ SCH (22:00)
[2018-07-17] MEDS: MONTELUKAST NA 10 MG TABLET PO SCH (22:02)
[2018-07-17] MEDS: ATORVASTATIN CA 10 MG TABLET (FP) PO SCH (22:02)
[2018-07-17] MEDS: LIDOCAINE PATCH REMOVAL MC SCH (22:02)
[2018-07-17] MEDS: MIRTAZAPINE 15 MG TABLET (FP) PO SCH (22:02)
--- NOTE | 2018-07-17 23:52 | PN ---
Progress Note, Physician History of Present Illness: Pt still complains of lower back and b/l leg pains - Current Medication List Current Medications: Active Medications Acetaminophen (Tylenol -) 325 mg PO Q4H PRN PRN Reason: PAIN LEVEL 7 - 10 Last Admin: 07/17/18 20:54 Dose: 325 mg Atorvastatin Calcium (Lipitor -) 10 mg PO HS [facility] Last Admin: 07/17/18 22:02 Dose: 10 mg Budesonide/Formoterol Fumarate (Symbicort 160/4.5mcg -) 2 puff IH BID [facility] Last Admin: 07/17/18 22:02 Dose: 2 puff Calcium Carbonate/Cholecalciferol (Os-Ray 500+D -) 1 tab PO DAILY [facility] Last Admin: 07/17/18 11:21 Dose: 1 tab Cyclobenzaprine HCl (Flexeril -) 10 mg PO TID PRN PRN Reason: BACK PAIN Docusate Sodium (Colace -) 100 mg PO TID [facility] Last Admin: 07/17/18 22:02 Dose: Not Given Fenofibric Acid (Trilipix -) 135 mg PO DAILY [facility] Last Admin: 07/17/18 11:22 Dose: 135 mg Heparin Sodium (Porcine) (Heparin -) 4,700 unit 40 unit/kg (4700 unit) IVPUSH PRN PRN PRN Reason: For aPTT 35 to 45 seconds Heparin Sodium (Porcine) (Heparin -) 9,400 unit 80 unit/kg (9400 unit) IVPUSH PRN PRN PRN Reason: aPTT <35 seconds Last Admin: 07/17/18 20:13 Dose: 9,400 unit Heparin Sodium/Dextrose (Heparin Infusion -) 25,000 units in 500 mls @ 42.336 mls/hr IVPB TITR [facility]; Protocol Last Titration: 07/17/18 19:43 Dose: 1,300 units/kg/hr, 3,057.6 mls/hr Sodium Chloride (Normal Saline -) 1,000 mls @ 100 mls/hr IV ASDIR [facility] Last Admin: 07/17/18 12:00 Dose: 100 mls/hr Insulin Aspart (Novolog Vial Sliding Scale -) 1 vial SQ ACHS [facility]; Protocol Last Admin: 07/17/18 22:02 Dose: 6 units Lidocaine (Lidoderm Patch -) 1 patch TP DAILY [facility] Last Admin: 07/17/18 11:23 Dose: 1 patch Mirtazapine (Remeron -) 7.5 mg PO HS [facility] Last Admin: 07/17/18 22:02 Dose: 7.5 mg Miscellaneous (Lidoderm Patch Removal) 1 each MC DAILY@2200 [facility] Last Admin: 07/17/18 22:02 Dose: 1 each Montelukast Sodium (Singulair -) 10 mg PO HS [facility] Last Admin: 07/17/18 22:02 Dose: 10 mg Non-Formulary Medication (Insulin Glargine,Hum.Rec.Anlog [Basaglar Kwikpen U-100 ]) 60 unit SQ [facility] Oxycodone HCl (Roxicodone -) 5 mg PO Q4H PRN PRN Reason: PAIN LEVEL 7 - 10 Last Admin: 07/17/18 20:54 Dose: 5 mg Pantoprazole Sodium (Protonix -) 40 mg PO DAILY [facility] Last Admin: 07/17/18 11:21 Dose: 40 mg Tiotropium [place] (Spiriva Respimat) 2 puff IH DAILY [facility] Last Admin: 07/17/18 11:22 Dose: 2 puff - Objective Vital Signs: Vital Signs Temperature 98.3 F 07/17/18 21:00 Pulse Rate 101 H 07/17/18 21:00 Respiratory Rate 18 07/17/18 22:00 Blood Pressure 129/79 07/17/18 21:00 O2 Sat by Pulse Oximetry (%) 97 07/17/18 22:00 Constitutional: Yes: Well Nourished, Obese HENT: Yes: WNL Neck: Yes: WNL, Supple Cardiovascular: Yes: WNL, Regular Rate and Rhythm Respiratory: Yes: WNL, Regular, CTA Bilaterally Gastrointestinal: Yes: WNL, Normal Bowel Sounds, Soft, Abdomen, Obese Edema: LLE: 1+, RLE: 1+ Labs: CBC, BMP 07/17/18 17:35 07/17/18 13:45 INR, PTT INR 1.42 (0.83-1.09) H 07/17/18 12:20 Fibrinogen 297.0 mg/dL (238-498) 07/17/18 12:20 Problem List - Problems (1) DVT of lower extremity, bilateral Assessment/Plan: Cont IV heparin DVT extending from IVC filter to inf vena cava/common iliac/external iliac B/L Monitor for bleeding H/O IVC filter Code(s): I82.403 - ACUTE EMBOLISM AND THOMBOS UNSP DEEP VEINS OF LOW EXTRM, BI (2) Hematoma Assessment/Plan: CT scan abd showed: No change in pelvic hematomas and multiple thrombosis's Monitor for bleeding Code(s): T14.8XXA - OTHER INJURY OF UNSPECIFIED BODY REGION, INITIAL ENCOUNTER (3) UTI (urinary tract infection) Assessment/Plan: Await Urine culture Cont IV ceftriaxone Code(s): N39.0 - URINARY TRACT INFECTION, SITE NOT SPECIFIED (4) Back pain Assessment/Plan: Chronic back pain Will need PT and enocurage OOB to chair Cont lidocaine/oxycodone/flexeril Code(s): M54.9 - DORSALGIA, UNSPECIFIED Qualifiers: Back pain location: low back pain Chronicity: unspecified Back pain laterality: right Sciatica presence: unspecified whether sciatica present Qualified Code(s): M54.5 - Low back pain (5) Diabetes Assessment/Plan: Cont sliding scale w/ coverage/levemir Code(s): E11.9 - TYPE 2 DIABETES MELLITUS WITHOUT COMPLICATIONS (6) HLD (hyperlipidemia) Assessment/Plan: Cont lipitor/fenofibrate Code(s): E78.5 - HYPERLIPIDEMIA, UNSPECIFIED (7) Neuropathy due to type 2 diabetes mellitus Code(s): E11.40 - TYPE 2 DIABETES MELLITUS WITH DIABETIC NEUROPATHY, UNSP (8) Obesity (BMI 30-39.9) Code(s): E66.9 - OBESITY, UNSPECIFIED (9) ARF (acute renal failure) Code(s): N17.9 - ACUTE KIDNEY FAILURE, UNSPECIFIED (10) Asthma Assessment/Plan: Cont spireva/symbicort Code(s): J45.909 - UNSPECIFIED ASTHMA, UNCOMPLICATED (11) Anemia Assessment/Plan: Acute blood loss anemia Monitor H/H Code(s): D64.9 - ANEMIA, UNSPECIFIED
--- NOTE | 2018-07-18 00:18 | CONSULT ---
Consult Consult Specialty:: endocrine Referred by:: dr.rocco salguero Reason for Consultation:: diabetes mellitus - History of Present Illness Chief Complaint: high sugars History of Present Illness: 57 year old female, with DM 2 , h/o unprovoked RLE DVT/PE (2014, treated with anticoagulation upuntil id 2016 and then discontinued due to frequent falls), also with superficial vein thrombosis in 06/2017 on prophy lovenox upuntil 3 months ago but was discontinued due to falls. Thrombophilia w/u was negative in the past.recently presented to ed 07/15 for back cabello,treated and dcd. returned to ed 07/16for worsening back and and difficulty walking found to have bilateral extensive dvt,and arf,she denies recent fall,fever chills nausea or vomiting.she has had elevated blood sugars,despite taking insulin doses, she states her sugars have recently worsened since the back pain. , - Past Medical History Cardio/Vascular: Yes: HTN, Hyperlipdemia Pulmonary: Yes: Asthma ...LMP: 07/29/11 Endocrine: Yes: Diabetes Mellitus - Alcohol/Substance Use Hx Alcohol Use: No - Smoking History Smoking history: Never smoked Have you smoked in the past 12 months: No Aproximately how many cigarettes per day: 0 If you are a former smoker, when did you quit?: 2006 - Social History History of Recent Travel: No Home Medications - Allergies Allergies/Adverse Reactions: Allergies Allergy/AdvReac Type Severity Reaction Status Date / Time duloxetine HCl AdvReac Mild dizzy Verified 07/15/18 15:39 [From Cymbalta] gabapentin AdvReac Mild edema Verified 07/15/18 15:39 shellfish derived AdvReac Mild Swelling Verified 07/15/18 15:39 - Home Medications Home Medications: Ambulatory Orders Albuterol Sulfate Inhaler - [Ventolin HFA Inhaler -] 1 - 2 inh IH Q4H PRN #0 inh 04/02/14 metFORMIN HCL [Metformin HCl] 500 mg PO DAILY 03/03/15 Lisinopril [Prinivil] 20 mg PO DAILY 08/24/16 Mirtazapine [Remeron -] 7.5 mg PO HS 08/24/16 Insulin Glargine,Hum.rec.anlog [Basaglar [place]pen U-100] 60 unit SQ HS 11/23/16 Calcium Carbonate/Vitamin D3 [Calcium 600-Vit D3 400 Tablet] 1 each PO DAILY Fenofibrate Nanocrystallized [Fenofibrate] 145 mg PO DAILY 06/26/17 Omeprazole 40 mg PO DAILY 06/26/17 Atorvastatin Ca [Lipitor] 10 mg PO HS #30 tablet 07/04/17 Budesonide/Formeterol Fumarate [SYMBICORT 160/4.5mcg -] 2 puff IH BID #1 inhaler 07/04/17 Montelukast Na [Singulair -] 10 mg PO HS #30 tablet 07/04/17 Tiotropium [place] [Spiriva] 1 puff IH DAILY #1 inh 07/04/17 Docusate Sodium [Colace] 100 mg PO TID #90 capsule 09/04/17 Diclofenac Sodium [Voltaren] 2 gm TP TID PRN #3 tube 02/19/18 Ergocalciferol [Vitamin D2] 50,000 unit PO Q7D@1000 #4 capsule 03/25/18 Guaifenesin [Mucinex -] 600 mg PO BID PRN #28 tablet.er 03/25/18 Insulin (Novolog) [Novolog -] 5 units SQ TIDAC 05/23/18 Cyclobenzaprine HCl [Flexeril -] 10 mg PO TID PRN #90 tablet 06/23/18 Oxycodone HCl/Acetaminophen [Endocet 10-325 mg Tablet] 1 each PO BID PRN #60 tablet MDD 2 06/23/18 Lidocaine 5% Patch [Lidoderm Patch -] 1 patch TP DAILY #7 patch 07/15/18 Family Disease History - Family Disease History Family Disease History: Diabetes: Mother (stroke), Sister, Heart Disease: Father , Mother, Other: Mother, Brother (renal), Daughter (RA) Review of Systems - Review of Systems Constitutional: reports: Lethargy, Weakness Eyes: reports: No Symptoms HENT: reports: No Symptoms Neck: reports: No Symptoms Cardiovascular: reports: Shortness of Breath Respiratory: reports: Exercise Intolerance, SOB on Exertion Gastrointestinal: reports: Bloating, Nausea Genitourinary: reports: Urgency Breasts: reports: No Symptoms Reported Neurological: reports: Unsteady Gait, Weakness Endocrine: reports: Unexplained Weight Gain Physical Exam Vital Signs: Vital Signs Temperature 98.3 F 07/17/18 21:00 Pulse Rate 101 H 07/17/18 21:00 Respiratory Rate 18 07/17/18 22:00 Blood Pressure 129/79 07/17/18 21:00 O2 Sat by Pulse Oximetry (%) 97 07/17/18 22:00 Eyes: Yes: EOM Intact HENT: Yes: Normocephalic Neck: Yes: Trachea Midline Cardiovascular: Yes: Tachycardia Respiratory: Yes: CTA Bilaterally Gastrointestinal: Yes: Normal Bowel Sounds ...Rectal Exam: Yes: Deferred Renal/: Yes: CVA Tenderness - Left Extremities: Yes: Delayed Capillary Refill Edema: Yes Edema: LLE: 2+, RLE: 2+ Integumentary: Yes: Venous Stasis Changes Neurological: Yes: Alert, Oriented Labs: CBC, BMP 07/17/18 17:35 07/17/18 13:45 Problem List - Problems (1) DVT of lower extremity, bilateral Code(s): I82.403 - ACUTE EMBOLISM AND THOMBOS UNSP DEEP VEINS OF LOW EXTRM, BI (2) Back pain Code(s): M54.9 - DORSALGIA, UNSPECIFIED Qualifiers: Back pain location: low back pain Chronicity: unspecified Back pain laterality: right Sciatica presence: unspecified whether sciatica present Qualified Code(s): M54.5 - Low back pain (3) Hyperglycemia Code(s): R73.9 - HYPERGLYCEMIA, UNSPECIFIED (4) Injury of right foot Code(s): S99.921A - UNSPECIFIED INJURY OF RIGHT FOOT, INITIAL ENCOUNTER Qualifiers: Encounter type: initial encounter Qualified Code(s): S99.921A - Unspecified injury of right foot, initial encounter (5) URI (upper respiratory infection) Code(s): J06.9 - ACUTE UPPER RESPIRATORY INFECTION, UNSPECIFIED Assessment/Plan Current Active Problems diabtes mellitus neuropathy hyperlipidemia ashd DVT of axillary vein, acute bilateral (Acute) DVT of lower extremity, bilateral (Acute) Abnormal Lab Results 07/17/18 07/17/18 07/17/18 05:30 05:30 05:30 RBC 3.16 L Hgb 9.7 L Hct 28.3 L D Plt Count 109 L Monocytes % PT with INR 16.30 H INR 1.38 H PTT (Actin FS) 38.8 H Sodium BUN Creatinine Random Glucose Hemoglobin A1c % 10.6 H Calcium AST C-Reactive Protein Albumin 07/17/18 07/17/18 07/17/18 06:00 12:20 12:20 RBC 3.45 L Hgb Hct 31.4 L Plt Count 113 L Monocytes % PT with INR 16.80 H INR 1.42 H PTT (Actin FS) 101.0 H Sodium 135 L BUN 40 H Creatinine 1.7 H Random Glucose 259 H Hemoglobin A1c % Calcium 8.3 L AST 12 L C-Reactive Protein 13.5 H Albumin 3.2 L 07/17/18 07/17/18 07/17/18 13:45 14:30 17:35 RBC 3.24 L Hgb 10.2 L Hct 29.4 L Plt Count 114 L Monocytes % 10.7 H PT with INR INR PTT (Actin FS) 63.1 H Sodium 135 L BUN 41 H Creatinine 1.6 H Random Glucose 275 H Hemoglobin A1c % Calcium AST C-Reactive Protein Albumin 3.3 L Laboratory Results - last 24 hr 07/17/18 07/17/18 07/17/18 05:30 05:30 05:30 WBC 7.8 RBC 3.16 L Hgb 9.7 L Hct 28.3 L D MCV 89.5 MCH 30.8 MCHC 34.4 RDW 14.7 Plt Count 109 L MPV 10.2 Absolute Neuts (auto) 5.2 Neutrophils % 66.7 Lymphocytes % 21.0 Monocytes % 10.2 Eosinophils % 1.7 D Basophils % 0.4 Nucleated RBC % 0 ESR PT with INR 16.30 H INR 1.38 H PTT (Actin FS) 38.8 H Fibrinogen Sodium Potassium Chloride Carbon Dioxide Anion Gap BUN Creatinine Creat Clearance w eGFR POC Glucometer Random Glucose Hemoglobin A1c % 10.6 H Calcium Phosphorus Magnesium Total Bilirubin AST ALT Alkaline Phosphatase C-Reactive Protein Total Protein Albumin 07/17/18 07/17/18 07/17/18 05:30 05:30 06:00 WBC RBC Hgb Hct MCV MCH MCHC RDW Plt Count MPV Absolute Neuts (auto) Neutrophils % Lymphocytes % Monocytes % Eosinophils % Basophils % Nucleated RBC % ESR 23 PT with INR INR PTT (Actin FS) Fibrinogen 301.0 Sodium 135 L Potassium 3.7 Chloride 104 Carbon Dioxide 22 Anion Gap 9 BUN 40 H Creatinine 1.7 H Creat Clearance w eGFR 30.76 POC Glucometer Random Glucose 259 H Hemoglobin A1c % Calcium 8.3 L Phosphorus 3.5 Magnesium 2.0 Total Bilirubin 0.5 AST 12 L ALT 20 Alkaline Phosphatase 83 C-Reactive Protein 13.5 H Total Protein 6.7 Albumin 3.2 L 07/17/18 07/17/18 07/17/18 06:18 11:41 12:20 WBC 8.3 RBC 3.45 L Hgb 10.7 Hct 31.4 L MCV 91.0 MCH 31.0 MCHC 34.1 RDW 15.2 Plt Count 113 L MPV 10.5 Absolute Neuts (auto) 5.0 Neutrophils % 60.0 Lymphocytes % 27.5 D Monocytes % 10.2 Eosinophils % 1.9 Basophils % 0.4 Nucleated RBC % 0 ESR PT with INR INR PTT (Actin FS) Fibrinogen Sodium Potassium Chloride Carbon Dioxide Anion Gap BUN Creatinine Creat Clearance w eGFR POC Glucometer 229 272 Random Glucose Hemoglobin A1c % Calcium Phosphorus Magnesium Total Bilirubin AST ALT Alkaline Phosphatase C-Reactive Protein Total Protein Albumin 07/17/18 07/17/18 07/17/18 12:20 12:20 13:45 WBC RBC Hgb Hct MCV MCH MCHC RDW Plt Count MPV Absolute Neuts (auto) Neutrophils % Lymphocytes % Monocytes % Eosinophils % Basophils % Nucleated RBC % ESR PT with INR 16.80 H INR 1.42 H PTT (Actin FS) 101.0 H Fibrinogen 297.0 Sodium 135 L Potassium 4.4 Chloride 103 Carbon Dioxide 23 Anion Gap 9 BUN 41 H Creatinine 1.6 H Creat Clearance w eGFR 32.99 POC Glucometer Random Glucose 275 H Hemoglobin A1c % Calcium 8.5 Phosphorus Magnesium Total Bilirubin 0.6 AST 26 ALT 22 Alkaline Phosphatase 85 C-Reactive Protein Total Protein 7.0 Albumin 3.3 L 07/17/18 07/17/18 07/17/18 14:30 17:35 17:55 WBC 7.4 RBC 3.24 L Hgb 10.2 L Hct 29.4 L MCV 90.7 MCH 31.6 MCHC 34.8 RDW 15.0 Plt Count 114 L MPV 10.1 Absolute Neuts (auto) 4.0 Neutrophils % 53.7 Lymphocytes % 32.9 Monocytes % 10.7 H Eosinophils % 1.8 Basophils % 0.9 Nucleated RBC % 0 ESR PT with INR INR PTT (Actin FS) 63.1 H 26.4 Fibrinogen Sodium Potassium Chloride Carbon Dioxide Anion Gap BUN Creatinine Creat Clearance w eGFR POC Glucometer Random Glucose Hemoglobin A1c % Calcium Phosphorus Magnesium Total Bilirubin AST ALT Alkaline Phosphatase C-Reactive Protein Total Protein Albumin 07/17/18 07/17/18 18:04 20:50 WBC RBC Hgb Hct MCV MCH MCHC RDW Plt Count MPV Absolute Neuts (auto) Neutrophils % Lymphocytes % Monocytes % Eosinophils % Basophils % Nucleated RBC % ESR PT with INR INR PTT (Actin FS) Fibrinogen Sodium Potassium Chloride Carbon Dioxide Anion Gap BUN Creatinine Creat Clearance w eGFR POC Glucometer 302 336 Random Glucose Hemoglobin A1c % Calcium Phosphorus Magnesium Total Bilirubin AST ALT Alkaline Phosphatase C-Reactive Protein Total Protein Albumin plan: bgm qid novolog insulin doses levemir 40 unit am levemir 50 unit hs
[2018-07-18] MEDS ORDERED: PATIENT'S OWN MEDICATION (NON-FORMULARY) (Insulin Glargine,Hum.Rec.Anlog [Basaglar Kwikpen SQ SCH (00:34)
[2018-07-18] MEDS: INSULIN SLIDING SCALE (NOVOLOG) 1 VIAL SQ SCH ×4 (03:47→21:44)
[2018-07-18] MEDS: DOCUSATE SODIUM 100 MG CAPSULE (FP) PO SCH ×3 (06:02→22:02)
[2018-07-18 06:20] LABS: BASO % 0.6 % (0-2.0); EOS % 2.3 % (0-4.5); HEMATOCRIT 27.3 % (32.4-45.2); HEMOGLOBIN 9.3 GM/dL (10.7-15.3); LYMPH % 28.8 % (8-40); MCH 30.5 pg (25.7-33.7); MEAN CELL VOLUME 89.6 fl (80-96); MEAN PLT VOLUME 10.4 fl (7.5-11.1); MONO % 10.8 % (3.8-10.2); NEUT % 57.5 % (42.8-82.8); PLATELET COUNT 122 K/MM3 (134-434); RBC 3.04 M/mm3 (3.60-5.2); RDW 14.9 % (11.6-15.6); WHITE BLOOD COUNT 7.6 K/mm3 (4.0-10.0)
[2018-07-18 06:27] LABS: INR 1.4 (0.83-1.09); PROTHROMBIN TIME (PATIENT) 16.6 SEC (9.7-13.0)
[2018-07-18] MEDS ORDERED: INSULIN (LEVEMIR) 100 UNITS/ML UNITS SQ SCH (07:00)
[2018-07-18 07:13] LABS: ALBUMIN 3.2 g/dl (3.4-5.0); ALK PHOS 84 U/L (45-117); ANION GAP 7 MMOL/L (8-16); BILIRUBIN,TOTAL 0.6 mg/dL (0.2-1); BLOOD UREA NITROGEN 34 mg/dL (7-18); CALCIUM 8.6 mg/dL (8.5-10.1); CHLORIDE 104 mmol/L (98-107); CO2 24 mmol/L (21-32); CREATININE 1.3 mg/dL (0.55-1.3); GLUCOSE,RANDOM 276 mg/dL (74-106); MAGNESIUM 2.2 mg/dL (1.8-2.4); PHOSPHOROUS 2.6 mg/dL (2.5-4.9); POTASSIUM 3.9 mmol/L (3.5-5.1); SGOT/AST 10 U/L (15-37); SGPT/ALT 19 U/L (13-61); SODIUM 134 mmol/L (136-145); TOT PROT 6.7 g/dl (6.4-8.2)
--- NOTE | 2018-07-18 08:31 | PN ---
Physical Exam: SUBJECTIVE: Patient seen and examined today, reported chronic back pain, bilateral lower extremity pain. Pt denied abdominal pain, chest pain, shortness of breath, nausea, vomiting. OBJECTIVE: Vital Signs Period Temp Pulse Resp BP Sys/Gunter Pulse Ox Last 24 Hr 98.3 F-99.4 F 90-101 14-18 117-129/78-83 97-100 GENERAL: The patient is awake, alert, and fully oriented, in no acute distress. HEAD: Normal with no signs of trauma. EYES: PERRL, extraocular movements intact, sclera anicteric, conjunctiva clear. No ptosis. ENT: Ears normal, nares patent, oropharynx clear without exudates, moist mucous membranes. NECK: Trachea midline, full range of motion, supple. LUNGS: Breath sounds equal, clear to auscultation bilaterally, no wheezes, no crackles, no accessory muscle use. HEART: Regular rate and rhythm, S1, S2 without murmur, rub or gallop. ABDOMEN: Soft, nontender, nondistended, normoactive bowel sounds, no guarding, no rebound, no hepatosplenomegaly, no masses. EXTREMITIES: 2+ pulses, warm, well-perfused. 1+ pitting edema to RLE. 3+ pitting edema to LLE. NEUROLOGICAL: Cranial nerves II through XII grossly intact. Normal speech, gait not observed. PSYCH: Normal mood, normal affect. SKIN: Warm, dry, normal turgor, no rashes or lesions noted Laboratory Results - last 24 hr 07/17/18 07/17/18 07/17/18 05:30 05:30 11:41 WBC RBC Hgb Hct MCV MCH MCHC RDW Plt Count MPV Absolute Neuts (auto) Neutrophils % Lymphocytes % Monocytes % Eosinophils % Basophils % Nucleated RBC % ESR 23 PT with INR INR PTT (Actin FS) Fibrinogen 301.0 Sodium Potassium Chloride Carbon Dioxide Anion Gap BUN Creatinine Creat Clearance w eGFR POC Glucometer 272 Random Glucose Calcium Phosphorus Magnesium Total Bilirubin AST ALT Alkaline Phosphatase Total Protein Albumin 07/17/18 07/17/18 07/17/18 12:20 12:20 12:20 WBC 8.3 RBC 3.45 L Hgb 10.7 Hct 31.4 L MCV 91.0 MCH 31.0 MCHC 34.1 RDW 15.2 Plt Count 113 L MPV 10.5 Absolute Neuts (auto) 5.0 Neutrophils % 60.0 Lymphocytes % 27.5 D Monocytes % 10.2 Eosinophils % 1.9 Basophils % 0.4 Nucleated RBC % 0 ESR PT with INR 16.80 H INR 1.42 H PTT (Actin FS) 101.0 H Fibrinogen 297.0 Sodium Potassium Chloride Carbon Dioxide Anion Gap BUN Creatinine Creat Clearance w eGFR POC Glucometer Random Glucose Calcium Phosphorus Magnesium Total Bilirubin AST ALT Alkaline Phosphatase Total Protein Albumin 07/17/18 07/17/18 07/17/18 13:45 14:30 17:35 WBC 7.4 RBC 3.24 L Hgb 10.2 L Hct 29.4 L MCV 90.7 MCH 31.6 MCHC 34.8 RDW 15.0 Plt Count 114 L MPV 10.1 Absolute Neuts (auto) 4.0 Neutrophils % 53.7 Lymphocytes % 32.9 Monocytes % 10.7 H Eosinophils % 1.8 Basophils % 0.9 Nucleated RBC % 0 ESR PT with INR INR PTT (Actin FS) 63.1 H Fibrinogen Sodium 135 L Potassium 4.4 Chloride 103 Carbon Dioxide 23 Anion Gap 9 BUN 41 H Creatinine 1.6 H Creat Clearance w eGFR 32.99 POC Glucometer Random Glucose 275 H Calcium 8.5 Phosphorus Magnesium Total Bilirubin 0.6 AST 26 ALT 22 Alkaline Phosphatase 85 Total Protein 7.0 Albumin 3.3 L 07/17/18 07/17/18 07/17/18 17:55 18:04 20:50 WBC RBC Hgb Hct MCV MCH MCHC RDW Plt Count MPV Absolute Neuts (auto) Neutrophils % Lymphocytes % Monocytes % Eosinophils % Basophils % Nucleated RBC % ESR PT with INR INR PTT (Actin FS) 26.4 Fibrinogen Sodium Potassium Chloride Carbon Dioxide Anion Gap BUN Creatinine Creat Clearance w eGFR POC Glucometer 302 336 Random Glucose Calcium Phosphorus Magnesium Total Bilirubin AST ALT Alkaline Phosphatase Total Protein Albumin 07/18/18 07/18/18 07/18/18 05:30 05:30 05:30 WBC 7.6 RBC 3.04 L Hgb 9.3 L Hct 27.3 L MCV 89.6 MCH 30.5 MCHC 34.0 RDW 14.9 Plt Count 122 L MPV 10.4 Absolute Neuts (auto) 4.3 Neutrophils % 57.5 Lymphocytes % 28.8 Monocytes % 10.8 H Eosinophils % 2.3 Basophils % 0.6 Nucleated RBC % 1 H ESR PT with INR 16.60 H INR 1.40 H PTT (Actin FS) 53.0 H Fibrinogen Sodium 134 L Potassium 3.9 Chloride 104 Carbon Dioxide 24 Anion Gap 7 L BUN 34 H Creatinine 1.3 Creat Clearance w eGFR 41.92 POC Glucometer Random Glucose 276 H Calcium 8.6 Phosphorus 2.6 Magnesium 2.2 Total Bilirubin 0.6 AST 10 L ALT 19 Alkaline Phosphatase 84 Total Protein 6.7 Albumin 3.2 L 07/18/18 07/18/18 05:30 05:39 WBC RBC Hgb Hct MCV MCH MCHC RDW Plt Count MPV Absolute Neuts (auto) Neutrophils % Lymphocytes % Monocytes % Eosinophils % Basophils % Nucleated RBC % ESR PT with INR INR PTT (Actin FS) Fibrinogen 415.0 D Sodium Potassium Chloride Carbon Dioxide Anion Gap BUN Creatinine Creat Clearance w eGFR POC Glucometer 284 Random Glucose Calcium Phosphorus Magnesium Total Bilirubin AST ALT Alkaline Phosphatase Total Protein Albumin Active Medications Generic Name Dose Route Start Last Admin Trade Name Freq PRN Reason Stop Dose Admin Acetaminophen 325 mg 07/16/18 20:31 07/17/18 20:54 Tylenol - PO 325 mg Q4H PRN Administration PAIN LEVEL 7 - 10 Atorvastatin Calcium 10 mg 07/17/18 22:00 07/17/18 22:02 Lipitor - PO 10 mg HS [facility] Administration Budesonide/Formoterol Fumarate 2 puff 07/17/18 10:00 07/17/18 22:02 Symbicort 160/4.5mcg - IH 2 puff BID [facility] Administration Calcium Carbonate/Cholecalciferol 1 tab 07/17/18 10:00 07/17/18 11:21 Os-Ray 500+D - PO 1 tab DAILY [facility] Administration Cyclobenzaprine HCl 10 mg 07/17/18 02:57 Flexeril - PO TID PRN BACK PAIN Docusate Sodium 100 mg 07/17/18 06:00 07/18/18 06:02 Colace - PO Not Given TID [facility]I Fenofibric Acid 135 mg 07/17/18 10:00 07/17/18 11:22 Trilipix - PO 135 mg DAILY [facility] Administration Heparin Sodium (Porcine) 4,700 unit 07/17/18 08:58 Heparin - 40 unit/kg (4700 unit) IVPUSH PRN PRN For aPTT 35 to 45 seconds Heparin Sodium (Porcine) 9,400 unit 07/17/18 08:58 07/17/18 20:13 Heparin - 80 unit/kg (9400 unit) 9,400 unit IVPUSH Administration PRN PRN aPTT <35 seconds Heparin Sodium/Dextrose 25,000 units in 500 mls @ 42.336 mls/hr 07/17/18 09: 00 07/17/18 19:43 Heparin Infusion - IVPB 1,300 units/kg/hr TITR [facility] 3,057.6 mls/hr Titration Protocol 18 UNITS/KG/HR Sodium Chloride 1,000 mls @ 100 mls/hr 07/17/18 11:51 07/17/18 12:00 Normal Saline - IV 100 mls/hr ASDIR [facility] Administration Insulin Aspart 1 vial 07/18/18 02:00 07/18/18 06:54 Novolog Vial Sliding Scale - SQ 7 unit Q4HPO [facility] Administration Protocol Insulin Detemir 20 units 07/18/18 07:00 07/18/18 06:54 Levemir Vial SQ 20 unit AM [facility] Administration Lidocaine 1 patch 07/17/18 10:00 07/17/18 11:23 Lidoderm Patch - TP 1 patch DAILY [facility] Administration Mirtazapine 7.5 mg 07/17/18 22:00 07/17/18 22:02 Remeron - PO 7.5 mg HS [facility] Administration Miscellaneous 1 each 07/17/18 22:00 07/17/18 22:02 Lidoderm Patch Removal MC 1 each DAILY@2200 [facility] Administration Montelukast Sodium 10 mg 07/17/18 22:00 07/17/18 22:02 Singulair - PO 10 mg HS [facility] Administration Non-Formulary Medication 60 unit 07/18/18 00:34 Insulin Glargine,Hum.Rec.Anlog [Basaglar Kwikpen U-100] SQ HS [facility] Oxycodone HCl 5 mg 07/16/18 20:31 07/17/18 20:54 Roxicodone - PO 5 mg Q4H PRN Administration PAIN LEVEL 7 - 10 Pantoprazole Sodium 40 mg 07/17/18 10:00 07/17/18 11:21 Protonix - PO 40 mg DAILY [facility] Administration Tiotropium [place] 2 puff 07/17/18 10:00 07/17/18 11:22 Spiriva Respimat IH 2 puff DAILY [facility] Administration Cat Scan: Report Reviewed ( CT lumbar spine Findings. Normal alignment of vertebral elements is noted. Normal height the vertebral bodies, intervertebral disc spaces. No evidence of compression deformities, spondylolisthesis or spondylolysis. Normal bony spinal canal. Intact pedicles. No evidence of lytic or blastic lesions. L2-L3. Circumferential disc bulge, extension of the disc into the neural foramina. L3-L4. Mild circumferential disc bulge. L4-L5 Broad-based posterior annular bulge associated with left paracentral/posterolateral disc extrusion extending caudal to the L4-5 disc space into left lateral recess of L5 causing stenosis. Clinically correlate with radiculopathy in distribution of the left L5 nerve. L5-S1. Posterior annular bulge, disc protrusion cannot be entirely excluded. Limited examination of the intraspinal contents due to the beam hardening artifacts, patient's habitus. IVC filter is noted. Impression. No acute bony abnormalities are seen. No evidence of compression deformities, spondylolisthesis or spondylolysis. Normal central bony spinal canal. Limited evaluation of the intraspinal contents due to the beam hardening artifacts, patient's habitus. Within the limitation of examination, there is suggestion of the discogenic changes at the several levels. The finding may be overestimated due to the beam hardening artifacts. L2-L3. Circumferential disc bulge, extension of the disc into the neural foramina. L3-L4. Mild circumferential disc bulge. L4-L5 Broad- based posterior annular bulge associated with left paracentral/posterolateral disc extrusion extending caudal to the L4-5 disc space into left lateral recess of L5 causing stenosis. Clinically correlate with radiculopathy in distribution of the left L5 nerve. L5-S1. Questionable disc bulge.), Other ( Sequential axial images were obtained from the domes of the diaphragm through the symphysis pubis utilizing urinary tract calculi protocol. The lung bases are clear. There is no evidence of calcifications within the kidneys, ureters or urinary bladder suspicious for urinary tract calculi. There is no evidence of hydronephrosis or obstructive uropathy. No significant abnormalities of the liver, spleen, pancreas, or adrenal glands are identified. There is no evidence of intra-abdominal, retroperitoneal lymphadenopathy. There is no evidence of pneumoperitoneum or bowel obstruction. There is no CT evidence of acute appendicitis. Evaluation of the pelvis is limited without the use of any contrast material. The uterus is normal in size and configuration with no uterine masses present. There are ill-defined bilateral, heterogeneous adnexal masses with inflammatory stranding in the adjacent pelvic tissues. The urinary bladder appears thickened and a largely collapsed. The etiology of these findings is uncertain. Diagnostic possibilities would include hemorrhagic ovarian cysts, PID or possibly a pelvic malignancy. Further evaluation with pelvic ultrasonography is recommended. Additional contrast-enhanced imaging or pelvic MRI may also be warranted. There is no evidence of acute bony abnormalities. IMPRESSION: CTap 1. No evidence of urinary tract calculi or obstructive uropathy. 2. Complex, heterogeneous bilateral adnexal masses with pelvic inflammatory changes. Clinical correlation and follow-up ultrasonography and contrast-enhanced imaging recommended) Ultrasound: Report Reviewed ( Transvaginal US Clinical information: ovarian mass evaluation Transvaginal scanning was performed. Visualization is somewhat limited due to the patient's ability to fully tolerate the exam as a result of pre-existing pain. Neither ovary can be definitely visualized. The patient apparently reports a history of prior right oophorectomy. Within the left adnexa a nonspecific approximately 5.4 x 2.5 x 3 cm oval-shaped mildly hypoechoic focus is seen which may be ovarian in origin versus representing a possible small hematoma. MRI evaluation may be considered. No free intraperitoneal fluid is noted. The uterus demonstrates no discrete abnormality. Endometrial thickness appears unremarkable measuring 0.5 cm.), Image Reviewed (B/l Duplex US There is extensive deep venous thrombosis within the common, deep and superficial femoral veins, as well as the popliteal veins bilaterally. The greater saphenous vein is also occluded. Minimal flow is identified within these vessels. IMPRESSION: Extensive, bilateral deep venous thrombosis.), Other (Abdominal US The infrarenal segment of the inferior vena cava cannot be adequately visualized on sonography due to obscuring bowel gas. Review of a CT study performed earlier the same date however demonstrates evidence of acute thrombosis involving the infrarenal segment of the inferior vena cava as well as the common iliac and external iliac veins bilaterally. Diffuse hepatic steatosis.) ASSESSMENT & PLAN 57 yo F with PMHx of chronic back pain, DVT/PE (2011, treated with anticoagulation which was discontinued about 3 months ago due to frequent falls) , who presents for increased pain to her low back and lower extremities and found to have extensive b/l DVTs with b/l bleeding adnexal masses now on heparin drip and sent to ICU for close monitoring #HEM/ONC -Extensive b/l DVTs -Combined thrombosis and bleed- per Dr Clemons could be in setting of vasculitis -D/W Dr Clemons- Continue heparin drip -Heparin drip -CBC Q6H -Pt/PTT -Fibrinogen -Down trending H/H: 13.3/40.4>>12.0/36.1>>9.7/28.3>>10.7/31.4>>10.2/29.4>>9.3/ 27.3 --Continue to trend --If continuing to decrease, plan for repeat CT chest/abdomen/pelvis -Heparin now therapeutic -Repeat CT abdomen/pelvis with IV contrast today -Per Dr Clemons- If pt decompensates will need emergency IR procedure (she said she D/W Dr Delatorre) -Vascular Sx consult- ED discussed with Dr Mayr -Pt not surgical candidate was referred for IR procedure -Rheum consult -CRP 13.5 07/17/18 #THROMBOCYTOPENIA -PLT = 102>>109>>122>132 -Continue to monitor -HIT testing pending #RENAL #PILO -Improving Cr 3.1>>2.8>>1.7>>1.6>>1.3 -Likely prerenal -IV hydration at 100 cc/hour -500 cc bolus ordered for one time dose prior to CT with IV contrast -Dr Adame Consulted -Urine lytes -Abd US- no chronic renal dx noted -UA on 07/16/18 negative for UTI #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 EF 60-65%. Trace tricuspid regurgitation. #History of HLD -Atorvastatin 10 mg PO HS CICI -Fenofibrate 135 mg PO daily [facility]ICI #RESPIRATORY Stable #History of Asthma/Bronchitis -Monteleukoast 10 mg PO HS CICI -Spiriva 2 puff IH daily -Symbicort 2puff IH BID [facility]ICI #GI #History of GERD -Protonix 40 mg PO daily #NEURO Stable #MSK #History of back pain -Lidoderm patch -Oxycodone 5 mg PO Q4H PRN -Acetaminophen 325 mg PO Q4H PRN -Flexeril 10 mg PO TID PRN #FEN IV NS 500 cc bolus Maintain on NS @100/hr Diabetic diet #PPx Heparin drip #DISPO ICU level care Full code Visit type - Emergency Visit Emergency Visit: Yes ED Registration Date: 07/16/18 Care time: The patient presented to the Emergency Department on the above date and was hospitalized for further evaluation of their emergent condition. - New Patient This patient is new to me today: No - Critical Care Critical Care patient: Yes Total Critical Care Time (in minutes): 35 Critical Care Statement: The care of this patient involved high complexity decision making to prevent further life threatening deterioration of the patient 's condition and/or to evaluate & treat vital organ system(s) failure or risk of failure. - Discharge Referral Referred to [facility] Med P.C.: No
[2018-07-18] MEDS ORDERED: PT OWN MED DRAWER 7, Y5N ONE ×2 (09:26→22:00)
[2018-07-18] MEDS: PANTOPRAZOLE 40 MG TABLET (FP) PO SCH (09:36)
[2018-07-18] MEDS: CALCIUM 500MG/VIT-D 200 UNITS COMBO TABLET (FP) PO SCH (09:36)
[2018-07-18] MEDS: LIDOCAINE 5% TOPICAL PATCH TP SCH (09:36)
[2018-07-18] MEDS: BUDESONIDE/FORMETEROL FUMARATE 160/4.5 mcg INHALER IH SCH ×2 (10:08→22:04)
[2018-07-18] MEDS: TIOTROPIUM BROMIDE 2.5 MCG (SPIRIVA) RESPIMAT INHALER IH SCH (10:09)
[2018-07-18] MEDS: HEPARIN INFUSION - 25,000 UNITS/500 ML INFUS.BAG IVPB SCH (10:14)
[2018-07-18] MEDS: FENOFIBRIC ACID 135 MG CAP PO SCH (10:14)
[2018-07-18] MEDS: oxyCODONE HCL 5 MG TABLET PO PRN ×2 (10:18→18:55)
--- NOTE | 2018-07-18 12:18 | PN ---
Teaching Attending Note Name of Resident: Love Richardson ATTENDING PHYSICIAN STATEMENT I saw and evaluated the patient. I reviewed the resident's note and discussed the case with the resident. I agree with the resident's findings and plan as documented. SUBJECTIVE: Patient seen and examined in the ICU. Still with bilateral leg edema. Some mild abdominal discomfort. OBJECTIVE: Intake & Output 07/15/18 07/16/18 07/17/18 07/18/18 23:59 23:59 23:59 23:59 Intake Total 1772 1200 Output Total 700 900 Balance 1072 300 Weight 253 lb 14.4 oz 259 lb 4.218 oz 260 lb 9.6 oz Last Vital Signs Temp Pulse Resp BP Pulse Ox 99.4 F 90 14 123/78 97 07/18/18 06:00 07/18/18 06:00 07/18/18 09:00 07/18/18 06:00 07/18/18 09:00 Active Medications Acetaminophen (Tylenol -) 325 mg PO Q4H PRN PRN Reason: PAIN LEVEL 7 - 10 Last Admin: 07/17/18 20:54 Dose: 325 mg Atorvastatin Calcium (Lipitor -) 10 mg PO HS [facility] Last Admin: 07/17/18 22:02 Dose: 10 mg Budesonide/Formoterol Fumarate (Symbicort 160/4.5mcg -) 2 puff IH BID [facility] Last Admin: 07/18/18 10:08 Dose: 2 puff Calcium Carbonate/Cholecalciferol (Os-Ray 500+D -) 1 tab PO DAILY [facility] Last Admin: 07/18/18 09:36 Dose: 1 tab Cyclobenzaprine HCl (Flexeril -) 10 mg PO TID PRN PRN Reason: BACK PAIN Docusate Sodium (Colace -) 100 mg PO TID [facility] Last Admin: 07/18/18 06:02 Dose: Not Given Fenofibric Acid (Trilipix -) 135 mg PO DAILY [facility] Last Admin: 07/18/18 10:14 Dose: 135 mg Heparin Sodium (Porcine) (Heparin -) 4,700 unit 40 unit/kg (4700 unit) IVPUSH PRN PRN PRN Reason: For aPTT 35 to 45 seconds Heparin Sodium (Porcine) (Heparin -) 9,400 unit 80 unit/kg (9400 unit) IVPUSH PRN PRN PRN Reason: aPTT <35 seconds Last Admin: 07/17/18 20:13 Dose: 9,400 unit Heparin Sodium/Dextrose (Heparin Infusion -) 25,000 units in 500 mls @ 42.336 mls/hr IVPB TITR [facility]; Protocol Last Admin: 07/18/18 10:14 Dose: 11.05 units/kg/hr, 26 mls/hr Sodium Chloride (Normal Saline -) 1,000 mls @ 100 mls/hr IV ASDIR [facility] Last Admin: 07/17/18 12:00 Dose: 100 mls/hr Insulin Aspart (Novolog Vial Sliding Scale -) 1 vial SQ Q4HPO [facility]; Protocol Last Admin: 07/18/18 06:54 Dose: 7 unit Insulin Detemir (Levemir Vial) 20 units SQ AM [facility] Last Admin: 07/18/18 06:54 Dose: 20 unit Lidocaine (Lidoderm Patch -) 1 patch TP DAILY [facility] Last Admin: 07/18/18 09:36 Dose: 1 patch Mirtazapine (Remeron -) 7.5 mg PO [facility] Last Admin: 07/17/18 22:02 Dose: 7.5 mg Miscellaneous (Lidoderm Patch Removal) 1 each MC DAILY@2200 [facility] Last Admin: 07/17/18 22:02 Dose: 1 each Montelukast Sodium (Singulair -) 10 mg PO [facility] Last Admin: 07/17/18 22:02 Dose: 10 mg Non-Formulary Medication (Insulin Glargine,Hum.Rec.Anlog [Basaglar Kwikpen U-100 ]) 60 unit SQ [facility] Oxycodone HCl (Roxicodone -) 5 mg PO Q4H PRN PRN Reason: PAIN LEVEL 7 - 10 Last Admin: 07/18/18 10:18 Dose: 5 mg Pantoprazole Sodium (Protonix -) 40 mg PO DAILY [facility] Last Admin: 07/18/18 09:36 Dose: 40 mg Tiotropium [place] (Spiriva Respimat) 2 puff IH DAILY [facility] Last Admin: 07/18/18 10:09 Dose: 2 puff Gen: Awake and alert, NAD Heart: RRR Lung: decreased breath sounds at the bases Abd: soft, obese, mild tenderness in the back/lower abdomen Ext: + edema Laboratory Results - last 24 hr 07/17/18 07/17/1819 12:20 12:20 12:20 WBC 8.3 RBC 3.45 L Hgb 10.7 Hct 31.4 L MCV 91.0 MCH 31.0 MCHC 34.1 RDW 15.2 Plt Count 113 L MPV 10.5 Absolute Neuts (auto) 5.0 Neutrophils % 60.0 Lymphocytes % 27.5 D Monocytes % 10.2 Eosinophils % 1.9 Basophils % 0.4 Nucleated RBC % 0 PT with INR 16.80 H INR 1.42 H PTT (Actin FS) 101.0 H Fibrinogen 297.0 Sodium Potassium Chloride Carbon Dioxide Anion Gap BUN Creatinine Creat Clearance w eGFR POC Glucometer Random Glucose Calcium Phosphorus Magnesium Total Bilirubin AST ALT Alkaline Phosphatase Total Protein Albumin 07/17/18 07/17/18 07/17/18 13:45 14:30 17:35 WBC 7.4 RBC 3.24 L Hgb 10.2 L Hct 29.4 L MCV 90.7 MCH 31.6 MCHC 34.8 RDW 15.0 Plt Count 114 L MPV 10.1 Absolute Neuts (auto) 4.0 Neutrophils % 53.7 Lymphocytes % 32.9 Monocytes % 10.7 H Eosinophils % 1.8 Basophils % 0.9 Nucleated RBC % 0 PT with INR INR PTT (Actin FS) 63.1 H Fibrinogen Sodium 135 L Potassium 4.4 Chloride 103 Carbon Dioxide 23 Anion Gap 9 BUN 41 H Creatinine 1.6 H Creat Clearance w eGFR 32.99 POC Glucometer Random Glucose 275 H Calcium 8.5 Phosphorus Magnesium Total Bilirubin 0.6 AST 26 ALT 22 Alkaline Phosphatase 85 Total Protein 7.0 Albumin 3.3 L 07/17/18 07/17/18 07/17/18 17:55 18:04 20:50 WBC RBC Hgb Hct MCV MCH MCHC RDW Plt Count MPV Absolute Neuts (auto) Neutrophils % Lymphocytes % Monocytes % Eosinophils % Basophils % Nucleated RBC % PT with INR INR PTT (Actin FS) 26.4 Fibrinogen Sodium Potassium Chloride Carbon Dioxide Anion Gap BUN Creatinine Creat Clearance w eGFR POC Glucometer 302 336 Random Glucose Calcium Phosphorus Magnesium Total Bilirubin AST ALT Alkaline Phosphatase Total Protein Albumin 07/18/18 07/18/18 07/18/18 05:30 05:30 05:30 WBC 7.6 RBC 3.04 L Hgb 9.3 L Hct 27.3 L MCV 89.6 MCH 30.5 MCHC 34.0 RDW 14.9 Plt Count 122 L MPV 10.4 Absolute Neuts (auto) 4.3 Neutrophils % 57.5 Lymphocytes % 28.8 Monocytes % 10.8 H Eosinophils % 2.3 Basophils % 0.6 Nucleated RBC % 1 H PT with INR 16.60 H INR 1.40 H PTT (Actin FS) 53.0 H Fibrinogen Sodium 134 L Potassium 3.9 Chloride 104 Carbon Dioxide 24 Anion Gap 7 L BUN 34 H Creatinine 1.3 Creat Clearance w eGFR 41.92 POC Glucometer Random Glucose 276 H Calcium 8.6 Phosphorus 2.6 Magnesium 2.2 Total Bilirubin 0.6 AST 10 L ALT 19 Alkaline Phosphatase 84 Total Protein 6.7 Albumin 3.2 L 07/18/18 07/18/18 05:30 05:39 WBC RBC Hgb Hct MCV MCH MCHC RDW Plt Count MPV Absolute Neuts (auto) Neutrophils % Lymphocytes % Monocytes % Eosinophils % Basophils % Nucleated RBC % PT with INR INR PTT (Actin FS) Fibrinogen 415.0 D Sodium Potassium Chloride Carbon Dioxide Anion Gap BUN Creatinine Creat Clearance w eGFR POC Glucometer 284 Random Glucose Calcium Phosphorus Magnesium Total Bilirubin AST ALT Alkaline Phosphatase Total Protein Albumin ASSESSMENT AND PLAN: r/o Pelvic Hemorrhage/Hematoma Acute Blood Loss Anemia Acute Bilateral Extensive DVTs h/o IVC filter Acute Kidney Injury Asthma Anemia Thrombocytopenia - D/W Radiology further imaging: MRI versus CT with IV contrast - monitor H/H - transfuse as needed - continue anticoagulation - pulse checks - if H/H dropping, repeat CT A/P - IVF - monitor urine output, creatinine - CT A/P with contrast once renal failure resolves - O2 to keep SpO2 >90% - inhaled bronchodilators as needed - continue ICU monitoring for tenuous overall status Dr Lr Critical care time spent in reviewing chart, evaluating patient and formulating plan 35 min
[2018-07-18] MEDS ORDERED: SODIUM CHLORIDE 500 ML IV STA (12:33)
[2018-07-18 12:59] LABS: BASO % 0.5 % (0-2.0); EOS % 1.9 % (0-4.5); HEMATOCRIT 27.7 % (32.4-45.2); HEMOGLOBIN 9.4 GM/dL (10.7-15.3); LYMPH % 27.9 % (8-40); MCH 30.9 pg (25.7-33.7); MCHC 33.9 g/dl (32.0-36.0); MEAN CELL VOLUME 91.2 fl (80-96); MEAN PLT VOLUME 10.1 fl (7.5-11.1); MONO % 10.2 % (3.8-10.2); NEUT % 59.5 % (42.8-82.8); PLATELET COUNT 132 K/MM3 (134-434); RBC 3.04 M/mm3 (3.60-5.2); WHITE BLOOD COUNT 7.3 K/mm3 (4.0-10.0)
--- NOTE | 2018-07-18 13:04 | PN ---
Progress Note (short form) - Note Progress Note: Patient seen and examined No complaints of chest pain or SOB Last Vital Signs Temp Pulse Resp BP Pulse Ox 99.4 F 90 14 123/78 97 07/18/18 06:00 07/18/18 06:00 07/18/18 09:00 07/18/18 06:00 07/18/18 09:00 HEENT: [place], EOM Intact Oropharynx: No thrush, No mucositis, upper bite plate Cor: RSR, No murmurs, No gallops Lungs: Abd: Soft, Normal bowel sounds, No organomegaly Ext:No significant edema Skin: No rashes, Integument intact CBC, BMP 07/18/18 05:30 Current Medications Generic Name Dose Route Start Last Admin Trade Name Freq PRN Reason Stop Dose Admin Acetaminophen 325 mg 07/16/18 20:31 07/17/18 20:54 Tylenol - PO 325 mg Q4H PRN Administration PAIN LEVEL 7 - 10 Atorvastatin Calcium 10 mg 07/17/18 22:00 07/17/18 22:02 Lipitor - PO 10 mg HS [facility] Administration Budesonide/Formoterol Fumarate 2 puff 07/17/18 10:00 07/18/18 10:08 Symbicort 160/4.5mcg - IH 2 puff BID [facility] Administration Calcium Carbonate/Cholecalciferol 1 tab 07/17/18 10:00 07/18/18 09:36 Os-Ray 500+D - PO 1 tab DAILY [facility] Administration Cyclobenzaprine HCl 10 mg 07/17/18 02:57 Flexeril - PO TID PRN BACK PAIN Docusate Sodium 100 mg 07/17/18 06:00 07/18/18 06:02 Colace - PO Not Given TID [facility] Fenofibric Acid 135 mg 07/17/18 10:00 07/18/18 10:14 Trilipix - PO 135 mg DAILY [facility] Administration Heparin Sodium (Porcine) 4,700 unit 07/17/18 08:58 Heparin - 40 unit/kg (4700 unit) IVPUSH PRN PRN For aPTT 35 to 45 seconds Heparin Sodium (Porcine) 9,400 unit 07/17/18 08:58 07/17/18 20:13 Heparin - 80 unit/kg (9400 unit) 9,400 unit IVPUSH Administration PRN PRN aPTT <35 seconds Heparin Sodium/Dextrose 25,000 units in 500 mls @ 42.336 mls/hr 07/17/18 09: 00 07/18/18 10:14 Heparin Infusion - IVPB 11.05 units/kg/hr TITR [facility] 26 mls/hr Administration Protocol 18 UNITS/KG/HR Sodium Chloride 1,000 mls @ 100 mls/hr 07/17/18 11:51 07/17/18 12:00 Normal Saline - IV 100 mls/hr ASDIR [facility] Administration Sodium Chloride 500 mls @ 500 mls/hr 07/18/18 12:33 Normal Saline - IV 07/18/18 13:32 ASDIR STA Insulin Aspart 1 vial 07/18/18 02:00 07/18/18 06:54 Novolog Vial Sliding Scale - SQ 7 unit Q4HPO [facility] Administration Protocol Insulin Detemir 20 units 07/18/18 07:00 07/18/18 06:54 Levemir Vial SQ 20 unit AM [facility] Administration Lidocaine 1 patch 07/17/18 10:00 07/18/18 09:36 Lidoderm Patch - TP 1 patch DAILY [facility] Administration Mirtazapine 7.5 mg 07/17/18 22:00 07/17/18 22:02 Remeron - PO 7.5 mg HS [facility] Administration Miscellaneous 1 each 07/17/18 22:00 07/17/18 22:02 Lidoderm Patch Removal MC 1 each DAILY@2200 [facility] Administration Montelukast Sodium 10 mg 07/17/18 22:00 07/17/18 22:02 Singulair - PO 10 mg HS [facility] Administration Non-Formulary Medication 60 unit 07/18/18 00:34 Insulin Glargine,Hum.Rec.Anlog [Basaglar Kwikpen U-100] SQ HS [facility] Oxycodone HCl 5 mg 07/16/18 20:31 07/18/18 10:18 Roxicodone - PO 5 mg Q4H PRN Administration PAIN LEVEL 7 - 10 Pantoprazole Sodium 40 mg 07/17/18 10:00 07/18/18 09:36 Protonix - PO 40 mg DAILY [facility] Administration Tiotropium [place] 2 puff 07/17/18 10:00 07/18/18 10:09 Spiriva Respimat IH 2 puff DAILY [facility] Administration Extensive bilateral DVT's - H/O IVC filter Pelvic hemorrhage vs hematoma Acute Kidney Injury Anemia- blood loss Thrombocytopenia Asthma IV heparin - monitor H/H - transfuse as needed Monitor chems/kidney status MRI vs CT follow up imaging
--- NOTE | 2018-07-18 13:19 | PN ---
Progress Note (short form) - Note Progress Note: Renal follow up for PILO Pt seen and examined in the ICU no acute complaints continues to have tightness and tenderness in legs no sob, cp, abd pain, n/v/d on IVF Vital Signs Temperature 99.4 F 07/18/18 06:00 Pulse Rate 90 07/18/18 06:00 Respiratory Rate 14 07/18/18 09:00 Blood Pressure 123/78 07/18/18 06:00 O2 Sat by Pulse Oximetry (%) 97 07/18/18 09:00 Intake & Output 07/15/18 07/16/18 07/17/18 07/18/18 23:59 23:59 23:59 23:59 Intake Total 1772 1200 Output Total 700 900 Balance 1072 300 Weight 115.167 kg 117.6 kg 117.934 kg NAD RRR, no M/R CTA, no rales soft, obese, NT/ND no bladder distension ++ edema in LE extending to pelvis no focal neurologic defects CBC, BMP 07/18/18 12:29 07/18/18 05:30 Current Medications Acetaminophen (Tylenol -) 325 mg PO Q4H PRN PRN Reason: PAIN LEVEL 7 - 10 Last Admin: 07/17/18 20:54 Dose: 325 mg Atorvastatin Calcium (Lipitor -) 10 mg PO HS [facility] Last Admin: 07/17/18 22:02 Dose: 10 mg Budesonide/Formoterol Fumarate (Symbicort 160/4.5mcg -) 2 puff IH BID [facility] Last Admin: 07/18/18 10:08 Dose: 2 puff Calcium Carbonate/Cholecalciferol (Os-Ray 500+D -) 1 tab PO DAILY [facility] Last Admin: 07/18/18 09:36 Dose: 1 tab Cyclobenzaprine HCl (Flexeril -) 10 mg PO TID PRN PRN Reason: BACK PAIN Docusate Sodium (Colace -) 100 mg PO TID [facility] Last Admin: 07/18/18 06:02 Dose: Not Given Fenofibric Acid (Trilipix -) 135 mg PO DAILY [facility] Last Admin: 07/18/18 10:14 Dose: 135 mg Heparin Sodium (Porcine) (Heparin -) 4,700 unit 40 unit/kg (4700 unit) IVPUSH PRN PRN PRN Reason: For aPTT 35 to 45 seconds Heparin Sodium (Porcine) (Heparin -) 9,400 unit 80 unit/kg (9400 unit) IVPUSH PRN PRN PRN Reason: aPTT <35 seconds Last Admin: 07/17/18 20:13 Dose: 9,400 unit Heparin Sodium/Dextrose (Heparin Infusion -) 25,000 units in 500 mls @ 42.336 mls/hr IVPB TITR [facility]; Protocol Last Admin: 07/18/18 10:14 Dose: 11.05 units/kg/hr, 26 mls/hr Sodium Chloride (Normal Saline -) 1,000 mls @ 100 mls/hr IV ASDIR [facility] Last Admin: 07/17/18 12:00 Dose: 100 mls/hr Insulin Aspart (Novolog Vial Sliding Scale -) 1 vial SQ Q4HPO [facility]; Protocol Last Admin: 07/18/18 06:54 Dose: 7 unit Insulin Detemir (Levemir Vial) 20 units SQ AM [facility] Last Admin: 07/18/18 06:54 Dose: 20 unit Lidocaine (Lidoderm Patch -) 1 patch TP DAILY [facility] Last Admin: 07/18/18 09:36 Dose: 1 patch Mirtazapine (Remeron -) 7.5 mg PO [facility] Last Admin: 07/17/18 22:02 Dose: 7.5 mg Miscellaneous (Lidoderm Patch Removal) 1 each MC DAILY@2200 [facility] Last Admin: 07/17/18 22:02 Dose: 1 each Montelukast Sodium (Singulair -) 10 mg PO HS [facility] Last Admin: 07/17/18 22:02 Dose: 10 mg Non-Formulary Medication (Insulin Glargine,Hum.Rec.Anlog [Kenjiaglshantanu Oliveirapen U-100 ]) 60 unit SQ HS [facility] Oxycodone HCl (Roxicodone -) 5 mg PO Q4H PRN PRN Reason: PAIN LEVEL 7 - 10 Last Admin: 07/18/18 10:18 Dose: 5 mg Pantoprazole Sodium (Protonix -) 40 mg PO DAILY [facility] Last Admin: 07/18/18 09:36 Dose: 40 mg Tiotropium [place] (Spiriva Respimat) 2 puff IH DAILY [facility] Last Admin: 07/18/18 10:09 Dose: 2 puff 57 year old woman with 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 #Non-oliguric Acute Kidney Injury r/o renal vein thrombosis vs ATN (NSAID + ACEi ) vs. volume depletion #Extensive LE DVT #DM #Anemia/Thrombocytopenia #Hyponatremia #Asthma Renal function is improved on IVF, can titrate down as needed ECHO was WNL on Heparin gtt continue ICU monitoring Francisco Serrano DO
[2018-07-18 13:21] LABS: INR 1.33 (0.83-1.09); PROTHROMBIN TIME (PATIENT) 15.7 SEC (9.7-13.0)
[2018-07-18 13:23] LABS: ACTIVATED PTT 41.7 SECONDS (25.2-36.5)
[2018-07-18] MEDS: SODIUM CHLORIDE 1,000 ML IV SCH (15:20)
[2018-07-18 18:25] LABS: EPI CELLS 0.5 /HPF (0-5); PH,URINE 6.5 (5.0-8.0); URINE APPEARANCE CLEAR; URINE BACTERIA 5145.246 /hpf (NEGATIVE); URINE BILIRUBIN NEGATIVE (<2.0 mg/dL); URINE CASTS 3 /hpf (0-8); URINE COLOR YELLOW; URINE GLUCOSE (UA) 3+ (NEGATIVE); URINE KETONE NEGATIVE (NEGATIVE); URINE LEUK ESTERASE 2+ (NEGATIVE); URINE NITRITE NEGATIVE (NEGATIVE); URINE PROTEIN NEGATIVE (NEGATIVE); URINE RBC 1 /hpf (0-4); URINE UROBILINOGEN 0.2 mg/dL (0.2-1.0); URINE WBC 41 /hpf (0-5)
[2018-07-18] MEDS: CEFTRIAXONE 2 GM in DEXTROSE 5%-WATER 100 ML IVPB SCH (21:00)
[2018-07-18] MEDS: MONTELUKAST NA 10 MG TABLET PO SCH (22:03)
[2018-07-18] MEDS: MIRTAZAPINE 15 MG TABLET (FP) PO SCH (22:03)
[2018-07-18] MEDS: ATORVASTATIN CA 10 MG TABLET (FP) PO SCH (22:03)
[2018-07-18] MEDS ORDERED: DEXTROSE 5%-WATER 100 ML IVPB ONE (22:14)
--- NOTE | 2018-07-18 22:16 | PN ---
Progress Note, Physician History of Present Illness: Pt still complains of pain to legs w/ swelling and unable to get out of bed - Current Medication List Current Medications: Active Medications Acetaminophen (Tylenol -) 325 mg PO Q4H PRN PRN Reason: PAIN LEVEL 7 - 10 Last Admin: 07/17/18 20:54 Dose: 325 mg Atorvastatin Calcium (Lipitor -) 10 mg PO HS [facility] Last Admin: 07/18/18 22:03 Dose: 10 mg Budesonide/Formoterol Fumarate (Symbicort 160/4.5mcg -) 2 puff IH BID [facility] Last Admin: 07/18/18 22:04 Dose: 2 puff Calcium Carbonate/Cholecalciferol (Os-Ray 500+D -) 1 tab PO DAILY [facility] Last Admin: 07/18/18 09:36 Dose: 1 tab Cyclobenzaprine HCl (Flexeril -) 10 mg PO TID PRN PRN Reason: BACK PAIN Docusate Sodium (Colace -) 100 mg PO TID [facility] Last Admin: 07/18/18 22:02 Dose: 100 mg Fenofibric Acid (Trilipix -) 135 mg PO DAILY [facility] Last Admin: 07/18/18 10:14 Dose: 135 mg Heparin Sodium (Porcine) (Heparin -) 4,700 unit 40 unit/kg (4700 unit) IVPUSH PRN PRN PRN Reason: For aPTT 35 to 45 seconds Heparin Sodium (Porcine) (Heparin -) 9,400 unit 80 unit/kg (9400 unit) IVPUSH PRN PRN PRN Reason: aPTT <35 seconds Last Admin: 07/17/18 20:13 Dose: 9,400 unit Heparin Sodium/Dextrose (Heparin Infusion -) 25,000 units in 500 mls @ 42.336 mls/hr IVPB TITR [facility]; Protocol Last Titration: 07/18/18 14:00 Dose: 13.01 units/kg/hr, 30.6 mls/hr Sodium Chloride (Normal Saline -) 1,000 mls @ 100 mls/hr IV ASDIR [facility] Last Admin: 07/18/18 15:20 Dose: 100 mls/hr Ceftriaxone Sodium 2 gm/ (Dextrose) 100 mls @ 200 mls/hr IVPB DAILY [facility] Insulin Aspart (Novolog Vial Sliding Scale -) 1 vial SQ ACHS [facility]; Protocol Last Admin: 07/18/18 21:44 Dose: 7 units Insulin Detemir (Levemir Vial) 40 units SQ AM [facility] Lidocaine (Lidoderm Patch -) 1 patch TP DAILY [facility] Last Admin: 07/18/18 09:36 Dose: 1 patch Mirtazapine (Remeron -) 7.5 mg PO [facility] Last Admin: 07/18/18 22:03 Dose: 7.5 mg Miscellaneous (Lidoderm Patch Removal) 1 each MC DAILY@2200 [facility] Last Admin: 07/17/18 22:02 Dose: 1 each Montelukast Sodium (Singulair -) 10 mg PO [facility] Last Admin: 07/18/18 22:03 Dose: 10 mg Non-Formulary Medication (Insulin Glargine,Hum.Rec.Anlog [Basaglar Kwikpen U-100 ]) 60 unit SQ HS [facility] Oxycodone HCl (Roxicodone -) 5 mg PO Q4H PRN PRN Reason: PAIN LEVEL 7 - 10 Last Admin: 07/18/18 18:55 Dose: 5 mg Pantoprazole Sodium (Protonix -) 40 mg PO DAILY [facility] Last Admin: 07/18/18 09:36 Dose: 40 mg Tiotropium [place] (Spiriva Respimat) 2 puff IH DAILY [facility] Last Admin: 07/18/18 10:09 Dose: 2 puff - Objective Vital Signs: Vital Signs Temperature 98 F 07/18/18 14:00 Pulse Rate 101 H 07/18/18 18:51 Respiratory Rate 16 07/18/18 18:51 Blood Pressure 140/71 07/18/18 18:51 O2 Sat by Pulse Oximetry (%) 97 07/18/18 09:00 Constitutional: Yes: Well Nourished, Obese HENT: Yes: WNL Neck: Yes: WNL, Supple Cardiovascular: Yes: WNL, Regular Rate and Rhythm Respiratory: Yes: WNL, Regular, CTA Bilaterally Gastrointestinal: Yes: WNL, Normal Bowel Sounds, Soft Edema: LLE: 1+, RLE: 1+ Labs: CBC, BMP 07/18/18 12:29 07/18/18 05:30 INR, PTT INR 1.33 (0.83-1.09) H 07/18/18 12:29 Fibrinogen 415.0 mg/dL (238-498) D 07/18/18 05:30 Problem List - Problems (1) ARF (acute renal failure) Code(s): N17.9 - ACUTE KIDNEY FAILURE, UNSPECIFIED (2) Anemia Code(s): D64.9 - ANEMIA, UNSPECIFIED (3) Asthma Code(s): J45.909 - UNSPECIFIED ASTHMA, UNCOMPLICATED (4) DVT of lower extremity, bilateral Code(s): I82.403 - ACUTE EMBOLISM AND THOMBOS UNSP DEEP VEINS OF LOW EXTRM, BI (5) Hematoma Code(s): T14.8XXA - OTHER INJURY OF UNSPECIFIED BODY REGION, INITIAL ENCOUNTER (6) UTI (urinary tract infection) Code(s): N39.0 - URINARY TRACT INFECTION, SITE NOT SPECIFIED (7) Back pain Code(s): M54.9 - DORSALGIA, UNSPECIFIED Qualifiers: Back pain location: low back pain Chronicity: unspecified Back pain laterality: right Sciatica presence: unspecified whether sciatica present Qualified Code(s): M54.5 - Low back pain (8) Diabetes Code(s): E11.9 - TYPE 2 DIABETES MELLITUS WITHOUT COMPLICATIONS (9) GERD (gastroesophageal reflux disease) Code(s): K21.9 - GASTRO-ESOPHAGEAL REFLUX DISEASE WITHOUT ESOPHAGITIS Qualifiers: Esophagitis presence: without esophagitis Qualified Code(s): K21.9 - Gastro -esophageal reflux disease without esophagitis (10) HLD (hyperlipidemia) Code(s): E78.5 - HYPERLIPIDEMIA, UNSPECIFIED (11) Neuropathy due to type 2 diabetes mellitus Code(s): E11.40 - TYPE 2 DIABETES MELLITUS WITH DIABETIC NEUROPATHY, UNSP (12) Obesity (BMI 30-39.9) Code(s): E66.9 - OBESITY, UNSPECIFIED
[2018-07-18] MEDS: LIDOCAINE PATCH REMOVAL MC SCH (23:33)
[2018-07-18 23:40] LABS: BASO % 0.3 % (0-2.0); EOS % 1.4 % (0-4.5); HEMATOCRIT 20.2 % (32.4-45.2); LYMPH % 25.8 % (8-40); MCH 31.3 pg (25.7-33.7); MCHC 31.9 g/dl (32.0-36.0); MEAN CELL VOLUME 98.2 fl (80-96); MEAN PLT VOLUME 9.7 fl (7.5-11.1); MONO % 12.3 % (3.8-10.2); NEUT % 60.2 % (42.8-82.8); PLATELET COUNT 111 K/MM3 (134-434); RBC 2.05 M/mm3 (3.60-5.2); RDW 15.8 % (11.6-15.6); WHITE BLOOD COUNT 7.5 K/mm3 (4.0-10.0)
[2018-07-18 23:54] LABS: HEMOGLOBIN 6.4 GM/dL (10.7-15.3)
[2018-07-19 01:12] LABS: ALBUMIN 2.9 g/dl (3.4-5.0); ALK PHOS 86 U/L (45-117); ANION GAP 4 MMOL/L (8-16); BILIRUBIN,TOTAL 0.5 mg/dL (0.2-1); BLOOD UREA NITROGEN 22 mg/dL (7-18); CALCIUM 8.5 mg/dL (8.5-10.1); CHLORIDE 105 mmol/L (98-107); CO2 26 mmol/L (21-32); CREATININE 1.1 mg/dL (0.55-1.3); GLUCOSE,RANDOM 289 mg/dL (74-106); SGOT/AST 16 U/L (15-37); SGPT/ALT 17 U/L (13-61); SODIUM 135 mmol/L (136-145); TOT PROT 6.4 g/dl (6.4-8.2)
[2018-07-19] MEDS: HEPARIN INFUSION - 25,000 UNITS/500 ML INFUS.BAG IVPB SCH ×2 (05:01→09:55)
[2018-07-19] MEDS: INSULIN SLIDING SCALE (NOVOLOG) 1 VIAL SQ SCH ×5 (05:14→21:53)
[2018-07-19] MEDS: oxyCODONE HCL 5 MG TABLET PO PRN ×3 (05:27→21:54)
[2018-07-19] MEDS: DOCUSATE SODIUM 100 MG CAPSULE (FP) PO SCH ×3 (05:27→21:54)
[2018-07-19 06:25] LABS: HEMATOCRIT 25.1 % (32.4-45.2); HEMOGLOBIN 8.4 GM/dL (10.7-15.3); MCH 30.3 pg (25.7-33.7); MCHC 33.5 g/dl (32.0-36.0); MEAN CELL VOLUME 90.4 fl (80-96); MEAN PLT VOLUME 10.1 fl (7.5-11.1); PLATELET COUNT 125 K/MM3 (134-434); RBC 2.78 M/mm3 (3.60-5.2); RDW 15.2 % (11.6-15.6); WHITE BLOOD COUNT 8.3 K/mm3 (4.0-10.0)
[2018-07-19 06:41] LABS: BASO % 0.4 % (0-2.0); EOS % 1.7 % (0-4.5); HEMATOCRIT 24.9 % (32.4-45.2); HEMOGLOBIN 8.5 GM/dL (10.7-15.3); LYMPH % 25.1 % (8-40); MCH 30.7 pg (25.7-33.7); MEAN CELL VOLUME 90.5 fl (80-96); MEAN PLT VOLUME 10.2 fl (7.5-11.1); MONO % 12.1 % (3.8-10.2); NEUT % 60.7 % (42.8-82.8); PLATELET COUNT 125 K/MM3 (134-434); RBC 2.75 M/mm3 (3.60-5.2); WHITE BLOOD COUNT 8.3 K/mm3 (4.0-10.0)
[2018-07-19 06:56] LABS: ALBUMIN 2.9 g/dl (3.4-5.0); ALK PHOS 83 U/L (45-117); ANION GAP 8 MMOL/L (8-16); BILIRUBIN,TOTAL 0.4 mg/dL (0.2-1); BLOOD UREA NITROGEN 20 mg/dL (7-18); CALCIUM 8.2 mg/dL (8.5-10.1); CHLORIDE 106 mmol/L (98-107); CO2 23 mmol/L (21-32); GLUCOSE,RANDOM 245 mg/dL (74-106); MAGNESIUM 1.8 mg/dL (1.8-2.4); PHOSPHOROUS 2.5 mg/dL (2.5-4.9); POTASSIUM 3.9 mmol/L (3.5-5.1); SGOT/AST 13 U/L (15-37); SGPT/ALT 16 U/L (13-61); SODIUM 138 mmol/L (136-145); TOT PROT 6.5 g/dl (6.4-8.2)
[2018-07-19] MEDS ORDERED: INSULIN (LEVEMIR) 100 UNITS/ML UNITS SQ SCH (07:00)
[2018-07-19] MEDS ORDERED: DEXTROSE 5%-WATER 100 ML IVPB ONE (07:19)
[2018-07-19] MEDS: HEPARIN NA (PORCINE) 5,000 UNITS/ML 1ML VIAL IVPUSH PRN (07:28)
--- NOTE | 2018-07-19 08:39 | PN ---
Progress Note (short form) - Note Progress Note: PULM/CCM Pt Seen & Examined in the ICU. LE swelling persists, however, pt reports feeling better. Active Medications Acetaminophen (Tylenol -) 325 mg PO Q4H PRN PRN Reason: PAIN LEVEL 7 - 10 Last Admin: 07/19/18 21:54 Dose: 325 mg Atorvastatin Calcium (Lipitor -) 10 mg PO HS [facility] Last Admin: 07/19/18 21:54 Dose: 10 mg Budesonide/Formoterol Fumarate (Symbicort 160/4.5mcg -) 2 puff IH BID [facility] Last Admin: 07/19/18 21:58 Dose: 2 puff Calcium Carbonate/Cholecalciferol (Os-Ray 500+D -) 1 tab PO DAILY [facility] Last Admin: 07/19/18 09:55 Dose: 1 tab Cyclobenzaprine HCl (Flexeril -) 10 mg PO TID PRN PRN Reason: BACK PAIN Docusate Sodium (Colace -) 100 mg PO TID [facility] Last Admin: 07/19/18 21:54 Dose: 100 mg Fenofibric Acid (Trilipix -) 135 mg PO DAILY [facility] Last Admin: 07/19/18 10:00 Dose: 135 mg Heparin Sodium (Porcine) (Heparin -) 4,700 unit 40 unit/kg (4700 unit) IVPUSH PRN PRN PRN Reason: For aPTT 35 to 45 seconds Last Admin: 07/19/18 07:28 Dose: 4,700 unit Heparin Sodium (Porcine) (Heparin -) 9,400 unit 80 unit/kg (9400 unit) IVPUSH PRN PRN PRN Reason: aPTT <35 seconds Last Admin: 07/17/18 20:13 Dose: 9,400 unit Heparin Sodium/Dextrose (Heparin Infusion -) 25,000 units in 500 mls @ 42.336 mls/hr IVPB TITR [facility]; Protocol Last Titration: 07/19/18 16:51 Dose: 13.86 units/kg/hr, 32.6 mls/hr Ceftriaxone Sodium 2 gm/ (Dextrose) 100 mls @ 200 mls/hr IVPB DAILY [facility] Last Admin: 07/19/18 09:55 Dose: 200 mls/hr Insulin Aspart (Novolog Vial Sliding Scale -) 1 vial SQ ACHS [facility]; Protocol Last Admin: 03/23/19 21:53 Dose: 9 units Insulin Detemir (Levemir Vial) 60 units SQ AM [facility] Insulin Detemir (Levemir Vial) 45 units SQ HS [facility] Last Admin: 07/19/18 21:56 Dose: 45 units Lidocaine (Lidoderm Patch -) 1 patch TP DAILY [facility] Last Admin: 07/19/18 09:57 Dose: 1 patch Mirtazapine (Remeron -) 7.5 mg PO HS [facility] Last Admin: 07/19/18 21:56 Dose: 7.5 mg Miscellaneous (Lidoderm Patch Removal) 1 each MC DAILY@2200 [facility] Last Admin: 07/19/18 21:56 Dose: 1 each Montelukast Sodium (Singulair -) 10 mg PO HS [facility] Last Admin: 07/19/18 21:54 Dose: 10 mg Oxycodone HCl (Roxicodone -) 5 mg PO Q4H PRN PRN Reason: PAIN LEVEL 7 - 10 Last Admin: 07/19/18 21:54 Dose: 5 mg Pantoprazole Sodium (Protonix -) 40 mg PO DAILY [facility] Last Admin: 07/19/18 10:00 Dose: 40 mg Tiotropium [place] (Spiriva Respimat) 2 puff IH DAILY [facility] Last Admin: 07/19/18 10:01 Dose: 2 puff Vital Signs Period Temp Pulse Resp BP Sys/Gunter Pulse Ox Last 24 Hr 98.2 F-98.4 F 83-91 14-16 122-132/66-89 97-97 Intake & Output 07/17/18 07/18/18 07/19/18 07/20/18 23:59 23:59 23:59 23:59 Intake Total 1772 2285 1458.8 Output Total 700 1700 2200 Balance 1072 585 -741.2 Weight 117.6 kg 117.934 kg 120.701 kg Gen: Awake and alert, NAD Heart: RRR Lung: decreased breath sounds at the bases Abd: soft, obese, mild tenderness in the back/lower abdomen Ext: + edema CBC, BMP 07/19/18 05:30 07/19/18 05:30 Microbiology 07/16/18 19:45 Blood - Peripheral Venous Blood Culture - Preliminary NO GROWTH OBTAINED AFTER 72 HOURS, INCUBATION TO CONTINUE FOR 2 DAYS. 07/16/18 19:30 Blood - Peripheral Venous Blood Culture - Preliminary NO GROWTH OBTAINED AFTER 72 HOURS, INCUBATION TO CONTINUE FOR 2 DAYS. CTAP 07/19: Focal hematomas are seen within the left inferior pelvis as on the previous exam of 07/16/2018. These hematomas appear unchanged in overall size although demonstrating somewhat increased density suggestive of interval increased internal clotting. Follow-up CT/MRI is suggested to document resolution and lack of underlying pathology. Acute thrombosis is again seen involving the inferior vena cava below the level of an inferior vena cava filter device in place. As on the prior study there is also acute thrombosis involving the common iliac and external iliac veins bilaterally. Increased subcutaneous edema is seen at the level of pelvis. There is also increased extraperitoneal soft tissue edema within the posterior pelvis bilaterally. These soft tissue changes are probably secondary to venous congestion. Correlate clinically. Hepatic steatosis. 2 mm nonobstructing left renal calculus. ASSESS: r/o Pelvic Hemorrhage/Hematoma Acute Blood Loss Anemia Acute Bilateral Extensive DVTs h/o IVC filter Acute Kidney Injury Asthma Anemia Thrombocytopenia PLAN: - inhaled bronchodilators as needed - monitor H/H - transfuse as needed - continue anticoagulation - pulse checks - if H/H dropping, repeat CT A/P - IVF - monitor urine output, creatinine - CT A/P with contrast once renal failure resolves - O2 to keep SpO2 >90% - continue ICU monitoring for tenuous overall status DGL, ACNP-BC [facility] ICU PULM/CCM [id number]
--- NOTE | 2018-07-19 09:50 | CONS ---
DATE OF CONSULTATION: 07/17/2018 REASON FOR CONSULTATION: Rule out pelvic hematoma. HISTORY OF PRESENT ILLNESS: This patient is a 57-year-old female with a past medical history of multiple DVTs and pulmonary emboli who was on anticoagulant, which was subsequently discontinued because of the frequent history of fall, presented to the emergency room complaining of low back pain and leg swelling. No vaginal bleeding, normal bowel movements, no nausea or vomiting. CT scan of the abdomen and pelvis showed complex heterogeneous bilateral adnexal masses with possible pelvic inflammatory changes, and there was a concern for a possible pelvic hematoma. The transvaginal sonogram showed a 5 cm x 2 cm x 3 cm oval-shaped hyperechoic focus, possible ovarian hematoma. She had in the past postmenopausal bleeding secondary to . Patient 2 years ago had endometrial ablation. PHYSICAL EXAMINATION: Vital signs: Patient on examination was afebrile. Vital signs were stable. General: Patient was seen in ICU, states that she has pain and declined pelvic exam. Abdomen: Soft, nontender. IMPRESSION: Possible bilateral pelvic congestion secondary to obstruction of the pelvic veins, possible pelvic hematoma without knowing the cause. PLAN: Continue anticoagulant therapy and reevaluate after patient is stable with repeat ultrasound. A repeat CBC, serial CBC and serial sonogram with CT scan to evaluate the hematoma size. Nomi [id number]
[2018-07-19] MEDS: CALCIUM 500MG/VIT-D 200 UNITS COMBO TABLET (FP) PO SCH (09:55)
[2018-07-19] MEDS: CEFTRIAXONE 2 GM in DEXTROSE 5%-WATER 100 ML IVPB SCH (09:55)
[2018-07-19] MEDS: LIDOCAINE 5% TOPICAL PATCH TP SCH (09:57)
[2018-07-19] MEDS ORDERED: PT OWN MED DRAWER 7, Y5N ONE ×2 (09:59→18:38)
[2018-07-19] MEDS: FENOFIBRIC ACID 135 MG CAP PO SCH (10:00)
[2018-07-19] MEDS: PANTOPRAZOLE 40 MG TABLET (FP) PO SCH (10:00)
[2018-07-19] MEDS: BUDESONIDE/FORMETEROL FUMARATE 160/4.5 mcg INHALER IH SCH ×2 (10:01→21:58)
[2018-07-19] MEDS: TIOTROPIUM BROMIDE 2.5 MCG (SPIRIVA) RESPIMAT INHALER IH SCH (10:01)
--- NOTE | 2018-07-19 12:01 | PN ---
Progress Note (short form) - Note Progress Note: Renal follow up for PILO Pt seen and examined in the ICU no overnight events having difficutly obtaining blood samples on heparin gtt no sob, cp, abd pain, legs remains swollen Vital Signs Temperature 98.2 F 07/19/18 02:00 Pulse Rate 87 07/19/18 10:00 Respiratory Rate 16 07/19/18 10:00 Blood Pressure 124/70 07/19/18 10:00 O2 Sat by Pulse Oximetry (%) 97 07/19/18 09:00 Current Medications Acetaminophen (Tylenol -) 325 mg PO Q4H PRN PRN Reason: PAIN LEVEL 7 - 10 Last Admin: 07/17/18 20:54 Dose: 325 mg Atorvastatin Calcium (Lipitor -) 10 mg PO HS [facility] Last Admin: 07/18/18 22:03 Dose: 10 mg Budesonide/Formoterol Fumarate (Symbicort 160/4.5mcg -) 2 puff IH BID [facility] Last Admin: 07/19/18 10:01 Dose: 2 puff Calcium Carbonate/Cholecalciferol (Os-Ray 500+D -) 1 tab PO DAILY [facility] Last Admin: 07/19/18 09:55 Dose: 1 tab Cyclobenzaprine HCl (Flexeril -) 10 mg PO TID PRN PRN Reason: BACK PAIN Docusate Sodium (Colace -) 100 mg PO TID [facility] Last Admin: 07/19/18 05:27 Dose: 100 mg Fenofibric Acid (Trilipix -) 135 mg PO DAILY [facility] Last Admin: 07/19/18 10:00 Dose: 135 mg Heparin Sodium (Porcine) (Heparin -) 4,700 unit 40 unit/kg (4700 unit) IVPUSH PRN PRN PRN Reason: For aPTT 35 to 45 seconds Last Admin: 07/19/18 07:28 Dose: 4,700 unit Heparin Sodium (Porcine) (Heparin -) 9,400 unit 80 unit/kg (9400 unit) IVPUSH PRN PRN PRN Reason: aPTT <35 seconds Last Admin: 07/17/18 20:13 Dose: 9,400 unit Heparin Sodium/Dextrose (Heparin Infusion -) 25,000 units in 500 mls @ 42.336 mls/hr IVPB TITR [facility]; Protocol Last Admin: 07/19/18 09:55 Dose: 13.86 units/kg/hr, 32.6 mls/hr Sodium Chloride (Normal Saline -) 1,000 mls @ 100 mls/hr IV ASDIR [facility] Last Admin: 07/18/18 15:20 Dose: 100 mls/hr Ceftriaxone Sodium 2 gm/ (Dextrose) 100 mls @ 200 mls/hr IVPB DAILY [facility] Last Admin: 07/19/18 09:55 Dose: 200 mls/hr Insulin Aspart (Novolog Vial Sliding Scale -) 1 vial SQ ACHS [facility]; Protocol Insulin Detemir (Levemir Vial) 60 units SQ AM [facility]I Insulin Detemir (Levemir Vial) 45 units SQ HS [facility] Lidocaine (Lidoderm Patch -) 1 patch TP DAILY [facility] Last Admin: 07/19/18 09:57 Dose: 1 patch Mirtazapine (Remeron -) 7.5 mg PO [facility] Last Admin: 07/18/18 22:03 Dose: 7.5 mg Miscellaneous (Lidoderm Patch Removal) 1 each MC DAILY@2200 [facility] Last Admin: 07/18/18 23:33 Dose: 1 each Montelukast Sodium (Singulair -) 10 mg PO [facility] Last Admin: 07/18/18 22:03 Dose: 10 mg Oxycodone HCl (Roxicodone -) 5 mg PO Q4H PRN PRN Reason: PAIN LEVEL 7 - 10 Last Admin: 07/19/18 10:21 Dose: 5 mg Pantoprazole Sodium (Protonix -) 40 mg PO DAILY [facility] Last Admin: 07/19/18 10:00 Dose: 40 mg Tiotropium [place] (Spiriva Respimat) 2 puff IH DAILY [facility] Last Admin: 07/19/18 10:01 Dose: 2 puff NAD RRR, no M/R CTA, no rales soft, obese, NT/ND no bladder distension ++ edema in LE extending to pelvis no focal neurologic defects CBC, BMP 07/19/18 05:30 07/19/18 05:30 Current Medications Acetaminophen (Tylenol -) 325 mg PO Q4H PRN PRN Reason: PAIN LEVEL 7 - 10 Last Admin: 07/17/18 20:54 Dose: 325 mg Atorvastatin Calcium (Lipitor -) 10 mg PO [facility] Last Admin: 07/18/18 22:03 Dose: 10 mg Budesonide/Formoterol Fumarate (Symbicort 160/4.5mcg -) 2 puff IH BID [facility] Last Admin: 07/19/18 10:01 Dose: 2 puff Calcium Carbonate/Cholecalciferol (Os-Ray 500+D -) 1 tab PO DAILY [facility] Last Admin: 07/19/18 09:55 Dose: 1 tab Cyclobenzaprine HCl (Flexeril -) 10 mg PO TID PRN PRN Reason: BACK PAIN Docusate Sodium (Colace -) 100 mg PO TID [facility] Last Admin: 07/19/18 05:27 Dose: 100 mg Fenofibric Acid (Trilipix -) 135 mg PO DAILY [facility] Last Admin: 07/19/18 10:00 Dose: 135 mg Heparin Sodium (Porcine) (Heparin -) 4,700 unit 40 unit/kg (4700 unit) IVPUSH PRN PRN PRN Reason: For aPTT 35 to 45 seconds Last Admin: 07/19/18 07:28 Dose: 4,700 unit Heparin Sodium (Porcine) (Heparin -) 9,400 unit 80 unit/kg (9400 unit) IVPUSH PRN PRN PRN Reason: aPTT <35 seconds Last Admin: 07/17/18 20:13 Dose: 9,400 unit Heparin Sodium/Dextrose (Heparin Infusion -) 25,000 units in 500 mls @ 42.336 mls/hr IVPB TITR [facility]; Protocol Last Admin: 07/19/18 09:55 Dose: 13.86 units/kg/hr, 32.6 mls/hr Sodium Chloride (Normal Saline -) 1,000 mls @ 100 mls/hr IV ASDIR [facility] Last Admin: 07/18/18 15:20 Dose: 100 mls/hr Ceftriaxone Sodium 2 gm/ (Dextrose) 100 mls @ 200 mls/hr IVPB DAILY [facility] Last Admin: 07/19/18 09:55 Dose: 200 mls/hr Insulin Aspart (Novolog Vial Sliding Scale -) 1 vial SQ ACHS [facility]; Protocol Insulin Detemir (Levemir Vial) 60 units SQ AM [facility] Insulin Detemir (Levemir Vial) 45 units SQ HS [facility] Lidocaine (Lidoderm Patch -) 1 patch TP DAILY [facility] Last Admin: 07/19/18 09:57 Dose: 1 patch Mirtazapine (Remeron -) 7.5 mg PO HS [facility] Last Admin: 07/18/18 22:03 Dose: 7.5 mg Miscellaneous (Lidoderm Patch Removal) 1 each MC DAILY@2200 [facility] Last Admin: 07/18/18 23:33 Dose: 1 each Montelukast Sodium (Singulair -) 10 mg PO HS [facility] Last Admin: 07/18/18 22:03 Dose: 10 mg Oxycodone HCl (Roxicodone -) 5 mg PO Q4H PRN PRN Reason: PAIN LEVEL 7 - 10 Last Admin: 07/19/18 10:21 Dose: 5 mg Pantoprazole Sodium (Protonix -) 40 mg PO DAILY [facility] Last Admin: 07/19/18 10:00 Dose: 40 mg Tiotropium [place] (Spiriva Respimat) 2 puff IH DAILY [facility] Last Admin: 07/19/18 10:01 Dose: 2 puff 57 year old woman with 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 #Non-oliguric Acute Kidney Injury r/o renal vein thrombosis vs ATN (NSAID + ACEi ) vs. volume depletion #Extensive LE DVT #DM #Anemia/Thrombocytopenia #Hyponatremia #Asthma Renal function is improved to suspected baseline can d/c IVF and maintain on oral intake continue A/c as per Heme ICU monitoring Francisco Serrnao DO
--- NOTE | 2018-07-19 15:57 | PN ---
Progress Note (short form) - Note Progress Note: patient seen and examined feels better Last Vital Signs Temp Pulse Resp BP Pulse Ox 98.4 F 91 H 16 124/74 97 07/19/18 14:00 07/19/18 14:00 07/19/18 14:00 07/19/18 14:00 07/19/18 09:00 Cor: RSR, No murmurs, No gallops Lungs: Clear to P&A Abd: Soft, Normal bowel sounds, No organomegaly Ext:3 + edema b/l labs/meds reviewed a/p 57 year old female, with a significant past medical history of chronic back pain , h/o unprovoked RLE DVT/PE (2014, treated with anticoagulation upuntil id 2016 and then discontinued due to frequent falls, also with superficial vein thrombosis in 06/2017 on prophy lovenox upuntil 3 months ago but was discontinued due to falls. Thrombophilia w/u was negative in the past. Imaging studies -- CT and u/s extensive DVT from ivc to iliacs to b/l lower extremities. Also CT scan shows pelvic mass--on discussion with radiology -- concern for pelvic hematoma. Pelvic hematoma causing ? compression and DVT. Patient denies falls. ? mass ? vasculitis on heparin drip repeating CT pelvis on heparin drip to assess pelvic hematoma
--- NOTE | 2018-07-19 16:40 | CON.ID ---
Consult Consult Specialty:: infectious diseases Referred by:: Reason for Consultation:: uti/weakness/pain. fever/abd pain - History of Present Illness Chief Complaint: pain in the leg weakness unable to get up History of Present Illness: 57 yo F with PMHx of chronic back pain, asthma, DM, DVT (2015), DVT/PE (2017) s/ p IVC filter, recently off lovenox (for recurrent falls), presenting for increased back pain and lower extremities x3 days and worsening pain with difficulty ambulating x1 day. Pt reports severe back pain radiating down her bilateral lower extremities (R>L), with associated dizziness and swelling and tightness of b/l lower extremities and abdomen today. Patient reports generalized body pains could not confirm chest pain but did not report any SOB, no headaches, no jaw pain, no rash, no joint swellings. Pt presented for similar pain yesterday and was sent home. This morning the b/l leg swelling and pain were unbearable and she returned to ED. She denies recent travels. all her workup currently has been turned negative - History Source History Provided By: Patient, Medical Record Limitations to Obtaining History: No Limitations - Past Medical History Cardio/Vascular: Yes: HTN, Hyperlipdemia Pulmonary: Yes: Asthma ...LMP: 07/29/11 Endocrine: Yes: Diabetes Mellitus - Alcohol/Substance Use Hx Alcohol Use: No - Smoking History Smoking history: Never smoked Have you smoked in the past 12 months: No Aproximately how many cigarettes per day: 0 If you are a former smoker, when did you quit?: 2006 - Social History History of Recent Travel: No Home Medications - Allergies Allergies/Adverse Reactions: Allergies Allergy/AdvReac Type Severity Reaction Status Date / Time duloxetine HCl AdvReac Mild dizzy Verified 07/15/18 15:39 [From Cymbalta] gabapentin AdvReac Mild edema Verified 07/15/18 15:39 shellfish derived AdvReac Mild Swelling Verified 07/15/18 15:39 - Home Medications Home Medications: Ambulatory Orders RX: Albuterol Sulfate Inhaler - [Ventolin HFA Inhaler -] 1 - 2 inh IH Q4H PRN # 0 inh 04/02/14 RX: Lisinopril [Prinivil] 20 mg PO DAILY 08/24/16 RX: Mirtazapine [Remeron -] 7.5 mg PO HS 08/24/16 RX: Calcium Carbonate/Vitamin D3 [Calcium 600-Vit D3 400 Tablet] 1 each PO DAILY 06/26/17 RX: Fenofibrate Nanocrystallized [Fenofibrate] 145 mg PO DAILY 06/26/17 RX: Omeprazole 40 mg PO DAILY 06/26/17 RX: Atorvastatin Ca [Lipitor] 10 mg PO HS #30 tablet 07/04/17 RX: Budesonide/Formeterol Fumarate [SYMBICORT 160/4.5mcg -] 2 puff IH BID #1 inhaler 07/04/17 RX: Montelukast Na [Singulair -] 10 mg PO HS #30 tablet 07/04/17 RX: Tiotropium [place] [Spiriva] 1 puff IH DAILY #1 inh 07/04/17 RX: Docusate Sodium [Colace] 100 mg PO TID #90 capsule 09/04/17 RX: Ergocalciferol [Vitamin D2] 50,000 unit PO Q7D@1000 #4 capsule 03/25/18 RX: Cyclobenzaprine HCl [Flexeril -] 10 mg PO TID PRN #90 tablet 06/23/18 RX: Lidocaine 5% Patch [Lidoderm -] 1 patch TP DAILY #7 patch 07/15/18 RX: Acetaminophen [Tylenol .Regular Strength -] 650 mg PO Q4H PRN tablet RX: Enoxaparin [Lovenox -] 130 mg SQ BID@0700,1900 disp.syrin 08/01/18 RX: Enoxaparin [Lovenox -] 130 mg SQ BID@0700,1900 disp.syrin 08/01/18 RX: Insulin (Levemir) [Levemir Vial] 45 units SQ HS units 08/01/18 RX: Insulin (Levemir) [Levemir Vial] 60 units SQ AM units 08/01/18 RX: Insulin Sliding Scale [Novolog Vial Sliding Scale -] 1 vial SQ ACHS units 08/01/18 RX: Lidocaine 5% Patch [Lidoderm -] 1 patch TP DAILY patch 08/01/18 RX: Lidocaine Patch Removal [Lidoderm Patch Removal] 1 each MC DAILY@2200 each 08/01/18 RX: Methylnaltrexone [place] [Relistor -] 12 mg SQ DAILY kit 08/01/18 RX: Pantoprazole Sodium [Protonix -] 40 mg PO BID tablet.ec 08/01/18 RX: Polyethylene Glycol 3350 [Miralax 119 gm Btl -] 17 gm PO BID bottle RX: oxyCODONE HCL [Roxicodone -] 10 mg PO Q12H PRN #90 tablet MDD 2 08/01/18 Family Disease History - Family Disease History Family Disease History: Diabetes: Mother (stroke), Sister, Heart Disease: Father , Mother, Other: Mother, Brother (renal), Daughter (RA) Review of Systems - Review of Systems Constitutional: reports: Other (pain) Eyes: reports: No Symptoms HENT: reports: No Symptoms Neck: reports: No Symptoms Cardiovascular: reports: No Symptoms Respiratory: reports: No Symptoms Gastrointestinal: reports: No Symptoms Genitourinary: reports: No Symptoms Musculoskeletal: reports: No Symptoms Integumentary: reports: Erythema, Other (swelling of the leg) Neurological: reports: No Symptoms Endocrine: reports: No Symptoms Hematology/Lymphatic: reports: No Symptoms Psychiatric: reports: No Symptoms Physical Exam Vital Signs: Vital Signs Temperature 98.4 F 07/19/18 14:00 Pulse Rate 91 H 07/19/18 14:00 Respiratory Rate 16 07/19/18 14:00 Blood Pressure 124/74 07/19/18 14:00 O2 Sat by Pulse Oximetry (%) 97 07/19/18 09:00 Constitutional: Yes: Calm, Mild Distress Eyes: Yes: Conjunctiva Clear HENT: Yes: Atraumatic Neck: Yes: Supple, Trachea Midline Cardiovascular: Yes: Regular Rate and Rhythm Respiratory: Yes: Regular, Poor Air Entry (bases) Gastrointestinal: Yes: Normal Bowel Sounds, Soft Musculoskeletal: Yes: WNL Extremities: Yes: Other (lle edema and swelling wiht pain) Integumentary: Yes: Erythema Neurological: Yes: Alert, Oriented Psychiatric: Yes: Alert, Oriented Labs: CBC, BMP 07/19/18 05:30 07/19/18 05:30 Imaging - Results Chest X-ray: Report Reviewed, Image Reviewed X-ray: Report Reviewed, Image Reviewed Cat Scan: Report Reviewed, Image Reviewed Assessment/Plan Problem List - Problems (1) DVT of lower extremity, bilateral Code(s): I82.403 - ACUTE EMBOLISM AND THOMBOS UNSP DEEP VEINS OF LOW EXTRM, BI (2) Back pain Code(s): M54.9 - DORSALGIA, UNSPECIFIED Qualifiers: Back pain location: low back pain Chronicity: unspecified Back pain laterality: right Sciatica presence: unspecified whether sciatica present Qualified Code(s): M54.5 - Low back pain (3) Hyperglycemia Code(s): R73.9 - HYPERGLYCEMIA, UNSPECIFIED (4) Injury of right foot Code(s): S99.921A - UNSPECIFIED INJURY OF RIGHT FOOT, INITIAL ENCOUNTER Qualifiers: Encounter type: initial encounter Qualified Code(s): S99.921A - Unspecified injury of right foot, initial encounter (5) URI (upper respiratory infection) Code(s): J06.9 - ACUTE UPPER RESPIRATORY INFECTION, UNSPECIFIED 6 uti patients urine has esbl plan will start patient on abx close watch on fevers mgmt as per icu await for finalization of cx rest as per the team cc 40 min
--- NOTE | 2018-07-19 18:23 | PN ---
Progress Note, Physician Chief Complaint: sitting in bed has back pain - Current Medication List Current Medications: Active Medications Acetaminophen (Tylenol -) 325 mg PO Q4H PRN PRN Reason: PAIN LEVEL 7 - 10 Last Admin: 07/17/18 20:54 Dose: 325 mg Atorvastatin Calcium (Lipitor -) 10 mg PO HS [facility] Last Admin: 07/18/18 22:03 Dose: 10 mg Budesonide/Formoterol Fumarate (Symbicort 160/4.5mcg -) 2 puff IH BID [facility] Last Admin: 07/19/18 10:01 Dose: 2 puff Calcium Carbonate/Cholecalciferol (Os-Ray 500+D -) 1 tab PO DAILY [facility] Last Admin: 07/19/18 09:55 Dose: 1 tab Cyclobenzaprine HCl (Flexeril -) 10 mg PO TID PRN PRN Reason: BACK PAIN Docusate Sodium (Colace -) 100 mg PO TID [facility] Last Admin: 07/19/18 13:38 Dose: 100 mg Fenofibric Acid (Trilipix -) 135 mg PO DAILY [facility] Last Admin: 07/19/18 10:00 Dose: 135 mg Heparin Sodium (Porcine) (Heparin -) 4,700 unit 40 unit/kg (4700 unit) IVPUSH PRN PRN PRN Reason: For aPTT 35 to 45 seconds Last Admin: 07/19/18 07:28 Dose: 4,700 unit Heparin Sodium (Porcine) (Heparin -) 9,400 unit 80 unit/kg (9400 unit) IVPUSH PRN PRN PRN Reason: aPTT <35 seconds Last Admin: 07/17/18 20:13 Dose: 9,400 unit Heparin Sodium/Dextrose (Heparin Infusion -) 25,000 units in 500 mls @ 42.336 mls/hr IVPB TITR [facility]; Protocol Last Titration: 07/19/18 16:51 Dose: 13.86 units/kg/hr, 32.6 mls/hr Ceftriaxone Sodium 2 gm/ (Dextrose) 100 mls @ 200 mls/hr IVPB DAILY [facility] Last Admin: 07/19/18 09:55 Dose: 200 mls/hr Insulin Aspart (Novolog Vial Sliding Scale -) 1 vial SQ ACHS [facility]; Protocol Last Admin: 07/19/18 16:19 Dose: 9 units Insulin Detemir (Levemir Vial) 60 units SQ AM [facility] Insulin Detemir (Levemir Vial) 45 units SQ HS [facility] Lidocaine (Lidoderm Patch -) 1 patch TP DAILY [facility] Last Admin: 07/19/18 09:57 Dose: 1 patch Mirtazapine (Remeron -) 7.5 mg PO [facility] Last Admin: 07/18/18 22:03 Dose: 7.5 mg Miscellaneous (Lidoderm Patch Removal) 1 each MC DAILY@2200 [facility] Last Admin: 07/18/18 23:33 Dose: 1 each Montelukast Sodium (Singulair -) 10 mg PO [facility] Last Admin: 07/18/18 22:03 Dose: 10 mg Oxycodone HCl (Roxicodone -) 5 mg PO Q4H PRN PRN Reason: PAIN LEVEL 7 - 10 Last Admin: 07/19/18 10:21 Dose: 5 mg Pantoprazole Sodium (Protonix -) 40 mg PO DAILY [facility] Last Admin: 07/19/18 10:00 Dose: 40 mg Tiotropium [place] (Spiriva Respimat) 2 puff IH DAILY [facility] Last Admin: 07/19/18 10:01 Dose: 2 puff - Objective Vital Signs: Vital Signs Temperature 98.4 F 07/19/18 14:00 Pulse Rate 91 H 07/19/18 18:00 Respiratory Rate 14 07/19/18 18:00 Blood Pressure 132/89 07/19/18 18:00 O2 Sat by Pulse Oximetry (%) 97 07/19/18 09:00 Constitutional: Yes: Anxious Eyes: Yes: EOM Intact HENT: Yes: Normocephalic Neck: Yes: Trachea Midline Cardiovascular: Yes: Regular Rate and Rhythm Respiratory: Yes: Regular Gastrointestinal: Yes: Normal Bowel Sounds ...Rectal Exam: Yes: Deferred Musculoskeletal: Yes: Muscle Pain, Muscle Weakness Extremities: Yes: Delayed Capillary Refill Edema: Yes Edema: LLE: 2+, RLE: 2+ Neurological: Yes: Alert, Oriented Labs: CBC, BMP 07/19/18 05:30 07/19/18 05:30 INR, PTT INR 1.33 (0.83-1.09) H 07/18/18 12:29 Fibrinogen 415.0 mg/dL (238-498) D 07/18/18 05:30 Problem List - Problems (1) DVT of lower extremity, bilateral Code(s): I82.403 - ACUTE EMBOLISM AND THOMBOS UNSP DEEP VEINS OF LOW EXTRM, BI (2) Back pain Code(s): M54.9 - DORSALGIA, UNSPECIFIED Qualifiers: Back pain location: low back pain Chronicity: unspecified Back pain laterality: right Sciatica presence: unspecified whether sciatica present Qualified Code(s): M54.5 - Low back pain (3) Hyperglycemia Code(s): R73.9 - HYPERGLYCEMIA, UNSPECIFIED (4) Injury of right foot Code(s): S99.921A - UNSPECIFIED INJURY OF RIGHT FOOT, INITIAL ENCOUNTER Qualifiers: Encounter type: initial encounter Qualified Code(s): S99.921A - Unspecified injury of right foot, initial encounter (5) URI (upper respiratory infection) Code(s): J06.9 - ACUTE UPPER RESPIRATORY INFECTION, UNSPECIFIED Assessment/Plan Current Active Problems dm 2 neuropathy diabetic ckd DVT of axillary vein, acute bilateral (Acute) DVT of lower extremity, bilateral (Acute) Abnormal Lab Results 07/18/18 07/19/18 07/19/18 23:17 00:05 05:30 RBC 2.05 L 2.78 L Hgb 6.4 L* 8.4 L Hct 20.2 L D 25.1 L D MCV 98.2 H D MCHC 31.9 L RDW 15.8 H Plt Count 111 L 125 L Monocytes % 12.3 H PTT (Actin FS) Sodium 135 L Anion Gap 4 L BUN 22 H Random Glucose 289 H Calcium AST Albumin 2.9 L 07/19/18 07/19/18 07/19/18 05:30 05:30 05:30 RBC 2.75 L Hgb 8.5 L Hct 24.9 L MCV MCHC RDW Plt Count 125 L Monocytes % 12.1 H PTT (Actin FS) 42.1 H Sodium Anion Gap BUN 20 H Random Glucose 245 H Calcium 8.2 L AST 13 L Albumin 2.9 L 07/19/18 14:05 RBC Hgb Hct MCV MCHC RDW Plt Count Monocytes % PTT (Actin FS) 55.3 H Sodium Anion Gap BUN Random Glucose Calcium AST Albumin Laboratory Results - last 24 hr 07/18/18 07/18/18 07/18/18 17:00 21:38 23:17 WBC 7.5 RBC 2.05 L Hgb 6.4 L* Hct 20.2 L D MCV 98.2 H D MCH 31.3 MCHC 31.9 L RDW 15.8 H Plt Count 111 L MPV 9.7 Absolute Neuts (auto) 4.5 Neutrophils % 60.2 Lymphocytes % 25.8 Monocytes % 12.3 H Eosinophils % 1.4 Basophils % 0.3 Nucleated RBC % 0 PTT (Actin FS) Sodium Potassium Chloride Carbon Dioxide Anion Gap BUN Creatinine Creat Clearance w eGFR POC Glucometer 264 Random Glucose Calcium Phosphorus Magnesium Total Bilirubin AST ALT Alkaline Phosphatase Total Protein Albumin Urine Color Yellow Urine Appearance Clear Urine pH 6.5 D Ur Specific [place] 1.023 Urine Protein Negative Urine Glucose (UA) 3+ Urine Ketones Negative Urine Blood Trace Urine Nitrite Negative Urine Bilirubin Negative Urine Urobilinogen 0.2 Ur Leukocyte Esterase 2+ Urine WBC (Auto) 41 Urine RBC (Auto) 1 Urine Casts (Auto) 3 U Epithel Cells (Auto) 0.5 Urine Bacteria (Auto) 5145.246 07/18/18 07/19/18 07/19/18 23:17 00:05 05:30 WBC 8.3 RBC 2.78 L Hgb 8.4 L Hct 25.1 L D MCV 90.4 D MCH 30.3 MCHC 33.5 RDW 15.2 Plt Count 125 L MPV 10.1 Absolute Neuts (auto) Neutrophils % Lymphocytes % Monocytes % Eosinophils % Basophils % Nucleated RBC % PTT (Actin FS) Cancelled Sodium 135 L Potassium 4.0 Chloride 105 Carbon Dioxide 26 Anion Gap 4 L BUN 22 H Creatinine 1.1 Creat Clearance w eGFR 50.84 POC Glucometer Random Glucose 289 H Calcium 8.5 Phosphorus Magnesium Total Bilirubin 0.5 AST 16 ALT 17 Alkaline Phosphatase 86 Total Protein 6.4 Albumin 2.9 L Urine Color Urine Appearance Urine pH Ur Specific [place] Urine Protein Urine Glucose (UA) Urine Ketones Urine Blood Urine Nitrite Urine Bilirubin Urine Urobilinogen Ur Leukocyte Esterase Urine WBC (Auto) Urine RBC (Auto) Urine Casts (Auto) U Epithel Cells (Auto) Urine Bacteria (Auto) 07/19/18 07/19/18 07/19/18 05:30 05:30 05:30 WBC 8.3 RBC 2.75 L Hgb 8.5 L Hct 24.9 L MCV 90.5 MCH 30.7 MCHC 34.0 RDW 15.0 Plt Count 125 L MPV 10.2 Absolute Neuts (auto) 5.1 Neutrophils % 60.7 Lymphocytes % 25.1 Monocytes % 12.1 H Eosinophils % 1.7 Basophils % 0.4 Nucleated RBC % 0 PTT (Actin FS) 42.1 H Sodium 138 Potassium 3.9 Chloride 106 Carbon Dioxide 23 Anion Gap 8 BUN 20 H Creatinine 1.0 Creat Clearance w eGFR 56.75 POC Glucometer Random Glucose 245 H Calcium 8.2 L Phosphorus 2.5 Magnesium 1.8 Total Bilirubin 0.4 AST 13 L ALT 16 Alkaline Phosphatase 83 Total Protein 6.5 Albumin 2.9 L Urine Color Urine Appearance Urine pH Ur Specific [place] Urine Protein Urine Glucose (UA) Urine Ketones Urine Blood Urine Nitrite Urine Bilirubin Urine Urobilinogen Ur Leukocyte Esterase Urine WBC (Auto) Urine RBC (Auto) Urine Casts (Auto) U Epithel Cells (Auto) Urine Bacteria (Auto) 07/19/18 07/19/18 07/19/18 06:35 10:27 14:05 WBC RBC Hgb Hct MCV MCH MCHC RDW Plt Count MPV Absolute Neuts (auto) Neutrophils % Lymphocytes % Monocytes % Eosinophils % Basophils % Nucleated RBC % PTT (Actin FS) 55.3 H Sodium Potassium Chloride Carbon Dioxide Anion Gap BUN Creatinine Creat Clearance w eGFR POC Glucometer 233 241 Random Glucose Calcium Phosphorus Magnesium Total Bilirubin AST ALT Alkaline Phosphatase Total Protein Albumin Urine Color Urine Appearance Urine pH Ur Specific [place] Urine Protein Urine Glucose (UA) Urine Ketones Urine Blood Urine Nitrite Urine Bilirubin Urine Urobilinogen Ur Leukocyte Esterase Urine WBC (Auto) Urine RBC (Auto) Urine Casts (Auto) U Epithel Cells (Auto) Urine Bacteria (Auto) 07/19/18 16:14 WBC RBC Hgb Hct MCV MCH MCHC RDW Plt Count MPV Absolute Neuts (auto) Neutrophils % Lymphocytes % Monocytes % Eosinophils % Basophils % Nucleated RBC % PTT (Actin FS) Sodium Potassium Chloride Carbon Dioxide Anion Gap BUN Creatinine Creat Clearance w eGFR POC Glucometer 263 Random Glucose Calcium Phosphorus Magnesium Total Bilirubin AST ALT Alkaline Phosphatase Total Protein Albumin Urine Color Urine Appearance Urine pH Ur Specific [place] Urine Protein Urine Glucose (UA) Urine Ketones Urine Blood Urine Nitrite Urine Bilirubin Urine Urobilinogen Ur Leukocyte Esterase Urine WBC (Auto) Urine RBC (Auto) Urine Casts (Auto) U Epithel Cells (Auto) Urine Bacteria (Auto) plan: bgm qid novolog insulin doses levemir bid doses titration dose high dose needed Current Medications Generic Name Dose Route Start Last Admin Trade Name Freq PRN Reason Stop Dose Admin Acetaminophen 325 mg 07/16/18 20:31 07/17/18 20:54 Tylenol - PO 325 mg Q4H PRN Administration PAIN LEVEL 7 - 10 Atorvastatin Calcium 10 mg 07/17/18 22:00 07/18/18 22:03 Lipitor - PO 10 mg HS [facility] Administration Budesonide/Formoterol Fumarate 2 puff 07/17/18 10:00 07/19/18 10:01 Symbicort 160/4.5mcg - IH 2 puff BID [facility] Administration Calcium Carbonate/Cholecalciferol 1 tab 07/17/18 10:00 07/19/18 09:55 Os-Ray 500+D - PO 1 tab DAILY [facility] Administration Cyclobenzaprine HCl 10 mg 07/17/18 02:57 Flexeril - PO TID PRN BACK PAIN Docusate Sodium 100 mg 07/17/18 06:00 07/19/18 13:38 Colace - PO 100 mg TID [facility] Administration Fenofibric Acid 135 mg 07/17/18 10:00 07/19/18 10:00 Trilipix - PO 135 mg DAILY [facility] Administration Heparin Sodium (Porcine) 4,700 unit 07/17/18 08:58 07/19/18 07:28 Heparin - 40 unit/kg (4700 unit) 4,700 unit IVPUSH Administration PRN PRN For aPTT 35 to 45 seconds Heparin Sodium (Porcine) 9,400 unit 07/17/18 08:58 07/17/18 20:13 Heparin - 80 unit/kg (9400 unit) 9,400 unit IVPUSH Administration PRN PRN aPTT <35 seconds Heparin Sodium/Dextrose 25,000 units in 500 mls @ 42.336 mls/hr 07/17/18 09: 00 07/19/18 16:51 Heparin Infusion - IVPB 13.86 units/kg/hr TITR [facility] 32.6 mls/hr Titration Protocol 18 UNITS/KG/HR Ceftriaxone Sodium 2 gm/ 100 mls @ 200 mls/hr 07/18/18 20:01 07/19/18 09:55 Dextrose IVPB 200 mls/hr DAILY [facility] Administration Insulin Aspart 1 vial 07/19/18 16:30 07/19/18 16:19 Novolog Vial Sliding Scale - SQ 9 units ACHS [facility] Administration Protocol Insulin Detemir 60 units 07/20/18 07:00 Levemir Vial SQ AM [facility] Insulin Detemir 45 units 07/19/18 22:00 Levemir Vial SQ HS [facility] Lidocaine 1 patch 07/17/18 10:00 07/19/18 09:57 Lidoderm Patch - TP 1 patch DAILY [facility] Administration Mirtazapine 7.5 mg 07/17/18 22:00 07/18/18 22:03 Remeron - PO 7.5 mg HS [facility] Administration Miscellaneous 1 each 07/17/18 22:00 07/18/18 23:33 Lidoderm Patch Removal MC 1 each DAILY@2200 [facility] Administration Montelukast Sodium 10 mg 07/17/18 22:00 07/18/18 22:03 Singulair - PO 10 mg HS [facility] Administration Oxycodone HCl 5 mg 07/16/18 20:31 07/19/18 10:21 Roxicodone - PO 5 mg Q4H PRN Administration PAIN LEVEL 7 - 10 Pantoprazole Sodium 40 mg 07/17/18 10:00 07/19/18 10:00 Protonix - PO 40 mg DAILY [facility] Administration Tiotropium [place] 2 puff 07/17/18 10:00 07/19/18 10:01 Spiriva Respimat IH 2 puff DAILY [facility] Administration
--- NOTE | 2018-07-19 21:49 | PN ---
Progress Note, Physician - Current Medication List Current Medications: Active Medications Acetaminophen (Tylenol -) 325 mg PO Q4H PRN PRN Reason: PAIN LEVEL 7 - 10 Last Admin: 07/17/18 20:54 Dose: 325 mg Atorvastatin Calcium (Lipitor -) 10 mg PO HS [facility] Last Admin: 07/18/18 22:03 Dose: 10 mg Budesonide/Formoterol Fumarate (Symbicort 160/4.5mcg -) 2 puff IH BID [facility] Last Admin: 07/19/18 10:01 Dose: 2 puff Calcium Carbonate/Cholecalciferol (Os-Ray 500+D -) 1 tab PO DAILY [facility] Last Admin: 07/19/18 09:55 Dose: 1 tab Cyclobenzaprine HCl (Flexeril -) 10 mg PO TID PRN PRN Reason: BACK PAIN Docusate Sodium (Colace -) 100 mg PO TID [facility] Last Admin: 07/19/18 13:38 Dose: 100 mg Fenofibric Acid (Trilipix -) 135 mg PO DAILY [facility] Last Admin: 07/19/18 10:00 Dose: 135 mg Heparin Sodium (Porcine) (Heparin -) 4,700 unit 40 unit/kg (4700 unit) IVPUSH PRN PRN PRN Reason: For aPTT 35 to 45 seconds Last Admin: 07/19/18 07:28 Dose: 4,700 unit Heparin Sodium (Porcine) (Heparin -) 9,400 unit 80 unit/kg (9400 unit) IVPUSH PRN PRN PRN Reason: aPTT <35 seconds Last Admin: 07/17/18 20:13 Dose: 9,400 unit Heparin Sodium/Dextrose (Heparin Infusion -) 25,000 units in 500 mls @ 42.336 mls/hr IVPB TITR [facility]; Protocol Last Titration: 07/19/18 16:51 Dose: 13.86 units/kg/hr, 32.6 mls/hr Ceftriaxone Sodium 2 gm/ (Dextrose) 100 mls @ 200 mls/hr IVPB DAILY [facility] Last Admin: 07/19/18 09:55 Dose: 200 mls/hr Insulin Aspart (Novolog Vial Sliding Scale -) 1 vial SQ ACHS [facility]; Protocol Last Admin: 07/19/18 16:19 Dose: 9 units Insulin Detemir (Levemir Vial) 60 units SQ AM [facility] Insulin Detemir (Levemir Vial) 45 units SQ [facility] Lidocaine (Lidoderm Patch -) 1 patch TP DAILY [facility] Last Admin: 07/19/18 09:57 Dose: 1 patch Mirtazapine (Remeron -) 7.5 mg PO [facility] Last Admin: 07/18/18 22:03 Dose: 7.5 mg Miscellaneous (Lidoderm Patch Removal) 1 each MC DAILY@2200 [facility] Last Admin: 07/18/18 23:33 Dose: 1 each Montelukast Sodium (Singulair -) 10 mg PO [facility] Last Admin: 07/18/18 22:03 Dose: 10 mg Oxycodone HCl (Roxicodone -) 5 mg PO Q4H PRN PRN Reason: PAIN LEVEL 7 - 10 Last Admin: 07/19/18 10:21 Dose: 5 mg Pantoprazole Sodium (Protonix -) 40 mg PO DAILY [facility] Last Admin: 07/19/18 10:00 Dose: 40 mg Tiotropium [place] (Spiriva Respimat) 2 puff IH DAILY [facility] Last Admin: 07/19/18 10:01 Dose: 2 puff - Objective Vital Signs: Vital Signs Temperature 98.4 F 07/19/18 14:00 Pulse Rate 91 H 07/19/18 18:00 Respiratory Rate 14 07/19/18 18:00 Blood Pressure 132/89 07/19/18 18:00 O2 Sat by Pulse Oximetry (%) 97 07/19/18 09:00 Constitutional: Yes: Well Nourished, Obese HENT: Yes: WNL Neck: Yes: WNL, Supple Cardiovascular: Yes: WNL, Regular Rate and Rhythm Respiratory: Yes: WNL, Regular, CTA Bilaterally Gastrointestinal: Yes: WNL, Normal Bowel Sounds, Soft, Abdomen, Obese Edema: LLE: 1+, RLE: 1+ Labs: CBC, BMP 07/19/18 05:30 07/19/18 05:30 INR, PTT INR 1.33 (0.83-1.09) H 07/18/18 12:29 Fibrinogen 415.0 mg/dL (238-498) D 07/18/18 05:30 Problem List - Problems (1) DVT of lower extremity, bilateral Assessment/Plan: Cont IV heparin DVT extending from IVC filter to inf vena cava/common iliac/external iliac B/L Monitor for bleeding H/O IVC filter Code(s): I82.403 - ACUTE EMBOLISM AND THOMBOS UNSP DEEP VEINS OF LOW EXTRM, BI (2) Hematoma Assessment/Plan: Repeat CT scan abd showed: No change in pelvic hematomas and multiple thrombosis 's Monitor for bleeding Code(s): T14.8XXA - OTHER INJURY OF UNSPECIFIED BODY REGION, INITIAL ENCOUNTER (3) UTI (urinary tract infection) Assessment/Plan: Urine culture (+) for lactose fermenting neg bacilli Cont IV ceftriaxone Code(s): N39.0 - URINARY TRACT INFECTION, SITE NOT SPECIFIED (4) Back pain Assessment/Plan: Chronic back pain Will need PT and enocurage OOB to chair Cont lidocaine/oxycodone/flexeril Code(s): M54.9 - DORSALGIA, UNSPECIFIED Qualifiers: Back pain location: low back pain Chronicity: unspecified Back pain laterality: right Sciatica presence: unspecified whether sciatica present Qualified Code(s): M54.5 - Low back pain (5) Asthma Assessment/Plan: Cont spireva/symbicort Code(s): J45.909 - UNSPECIFIED ASTHMA, UNCOMPLICATED (6) Diabetes Assessment/Plan: Cont sliding scale w/ coverage/levemir Code(s): E11.9 - TYPE 2 DIABETES MELLITUS WITHOUT COMPLICATIONS (7) HLD (hyperlipidemia) Assessment/Plan: Cont lipitor/fenofibrate Code(s): E78.5 - HYPERLIPIDEMIA, UNSPECIFIED (8) Neuropathy due to type 2 diabetes mellitus Code(s): E11.40 - TYPE 2 DIABETES MELLITUS WITH DIABETIC NEUROPATHY, UNSP (9) Obesity (BMI 30-39.9) Code(s): E66.9 - OBESITY, UNSPECIFIED (10) ARF (acute renal failure) Assessment/Plan: Creatinine/Bun improved and now normal Code(s): N17.9 - ACUTE KIDNEY FAILURE, UNSPECIFIED (11) Anemia Assessment/Plan: Acute blood loss anemia Monitor H/H Code(s): D64.9 - ANEMIA, UNSPECIFIED
[2018-07-19] MEDS: ATORVASTATIN CA 10 MG TABLET (FP) PO SCH (21:54)
[2018-07-19] MEDS: ACETAMINOPHEN 325 MG TABLET (FP) PO PRN (21:54)
[2018-07-19] MEDS: MONTELUKAST NA 10 MG TABLET PO SCH (21:54)
[2018-07-19] MEDS: MIRTAZAPINE 15 MG TABLET (FP) PO SCH (21:56)
[2018-07-19] MEDS: INSULIN (LEVEMIR) 100 UNITS/ML UNITS SQ SCH (21:56)
[2018-07-19] MEDS: LIDOCAINE PATCH REMOVAL MC SCH (21:56)
[2018-07-20 06:16] LABS: BASO % 0.3 % (0-2.0); EOS % 1.8 % (0-4.5); HEMATOCRIT 24.8 % (32.4-45.2); HEMOGLOBIN 8.4 GM/dL (10.7-15.3); LYMPH % 21.8 % (8-40); MCH 30.6 pg (25.7-33.7); MCHC 33.7 g/dl (32.0-36.0); MEAN CELL VOLUME 90.8 fl (80-96); MEAN PLT VOLUME 9.7 fl (7.5-11.1); NEUT % 65.1 % (42.8-82.8); PLATELET COUNT 152 K/MM3 (134-434); RBC 2.73 M/mm3 (3.60-5.2); WHITE BLOOD COUNT 8.2 K/mm3 (4.0-10.0)
[2018-07-20] MEDS ORDERED: PT OWN MED DRAWER 7, Y5N ONE ×2 (06:23→09:44)
[2018-07-20] MEDS: ACETAMINOPHEN 325 MG TABLET (FP) PO PRN ×2 (06:37→15:07)
[2018-07-20] MEDS: oxyCODONE HCL 5 MG TABLET PO PRN ×3 (06:37→19:57)
[2018-07-20] MEDS: DOCUSATE SODIUM 100 MG CAPSULE (FP) PO SCH ×3 (06:37→21:40)
[2018-07-20] MEDS: INSULIN SLIDING SCALE (NOVOLOG) 1 VIAL SQ SCH ×4 (06:48→21:59)
[2018-07-20] MEDS: INSULIN (LEVEMIR) 100 UNITS/ML UNITS SQ SCH ×2 (06:50→21:45)
[2018-07-20 07:03] LABS: CORRECTED WBC 6.17 K/mm3
[2018-07-20 07:12] LABS: ALBUMIN 2.9 g/dl (3.4-5.0); ALK PHOS 85 U/L (45-117); ANION GAP 10 MMOL/L (8-16); BILIRUBIN,TOTAL 0.4 mg/dL (0.2-1); BLOOD UREA NITROGEN 17 mg/dL (7-18); CALCIUM 8.5 mg/dL (8.5-10.1); CHLORIDE 104 mmol/L (98-107); CO2 24 mmol/L (21-32); GLUCOSE,RANDOM 227 mg/dL (74-106); SGOT/AST 17 U/L (15-37); SGPT/ALT 19 U/L (13-61); SODIUM 138 mmol/L (136-145); TOT PROT 6.6 g/dl (6.4-8.2)
[2018-07-20] MEDS ORDERED: DEXTROSE 5%-WATER 100 ML IVPB ONE (09:05)
--- NOTE | 2018-07-20 09:09 | PN ---
Progress Note (short form) - Note Progress Note: PULM/CCM Pt Seen & Examined in the ICU. LE swelling persists, paroxysmal back pain, however, pt reports feeling better. Active Medications Acetaminophen (Tylenol -) 325 mg PO Q4H PRN PRN Reason: PAIN LEVEL 7 - 10 Last Admin: 07/20/18 06:37 Dose: 325 mg Atorvastatin Calcium (Lipitor -) 10 mg PO HS [facility] Last Admin: 07/19/18 21:54 Dose: 10 mg Budesonide/Formoterol Fumarate (Symbicort 160/4.5mcg -) 2 puff IH BID [facility] Last Admin: 07/20/18 09:46 Dose: 2 puff Calcium Carbonate/Cholecalciferol (Os-Ray 500+D -) 1 tab PO DAILY [facility] Last Admin: 07/20/18 09:43 Dose: 1 tab Cyclobenzaprine HCl (Flexeril -) 10 mg PO TID PRN PRN Reason: BACK PAIN Docusate Sodium (Colace -) 100 mg PO TID [facility] Last Admin: 07/20/18 06:37 Dose: 100 mg Fenofibric Acid (Trilipix -) 135 mg PO DAILY [facility] Last Admin: 07/20/18 09:45 Dose: 135 mg Heparin Sodium (Porcine) (Heparin -) 4,700 unit 40 unit/kg (4700 unit) IVPUSH PRN PRN PRN Reason: For aPTT 35 to 45 seconds Last Admin: 07/19/18 07:28 Dose: 4,700 unit Heparin Sodium (Porcine) (Heparin -) 9,400 unit 80 unit/kg (9400 unit) IVPUSH PRN PRN PRN Reason: aPTT <35 seconds Last Admin: 07/17/18 20:13 Dose: 9,400 unit Heparin Sodium/Dextrose (Heparin Infusion -) 25,000 units in 500 mls @ 42.336 mls/hr IVPB TITR [facility]; Protocol Last Admin: 07/20/18 12:19 Dose: 13.86 units/kg/hr, 32.6 mls/hr Ceftriaxone Sodium 2 gm/ (Dextrose) 100 mls @ 200 mls/hr IVPB DAILY [facility] Last Admin: 07/20/18 09:50 Dose: 200 mls/hr Insulin Aspart (Novolog Vial Sliding Scale -) 1 vial SQ ACHS [facility]; Protocol Last Admin: 07/20/18 12:25 Dose: 6 units Insulin Detemir (Levemir Vial) 60 units SQ AM [facility] Last Admin: 07/20/18 06:50 Dose: 60 units Insulin Detemir (Levemir Vial) 45 units SQ HS [facility] Last Admin: 07/19/18 21:56 Dose: 45 units Lidocaine (Lidoderm Patch -) 1 patch TP DAILY [facility] Last Admin: 07/20/18 09:50 Dose: 1 patch Mirtazapine (Remeron -) 7.5 mg PO HS [facility] Last Admin: 07/19/18 21:56 Dose: 7.5 mg Miscellaneous (Lidoderm Patch Removal) 1 each MC DAILY@2200 [facility] Last Admin: 07/19/18 21:56 Dose: 1 each Montelukast Sodium (Singulair -) 10 mg PO HS [facility] Last Admin: 07/19/18 21:54 Dose: 10 mg Oxycodone HCl (Roxicodone -) 5 mg PO Q4H PRN PRN Reason: PAIN LEVEL 7 - 10 Last Admin: 07/20/18 06:37 Dose: 5 mg Pantoprazole Sodium (Protonix -) 40 mg PO DAILY [facility] Last Admin: 07/20/18 09:43 Dose: 40 mg Tiotropium [place] (Spiriva Respimat) 2 puff IH DAILY [facility] Last Admin: 07/20/18 09:46 Dose: 2 puff Vital Signs Period Temp Pulse Resp BP Sys/Gunter Pulse Ox Last 24 Hr 98.3 F-98.4 F 79-94 14-18 88-154/46-94 97-97 Intake & Output 07/17/18 07/18/18 07/19/18 07/20/18 23:59 23:59 23:59 23:59 Intake Total 1772 2285 1458.8 641.2 Output Total 700 1700 2200 600 Balance 1072 585 -741.2 41.2 Weight 117.6 kg 117.934 kg 120.701 kg 128.423 kg Gen: Awake and alert, NAD Heart: RRR Lung: decreased breath sounds at the bases Abd: soft, obese, mild tenderness in the back/lower abdomen Ext: + edema CBC, BMP 07/20/18 05:30 07/20/18 05:30 Microbiology 07/18/18 17:15 Urine - Urine K[place]n Urine Culture - Preliminary Lactose Fermenting Neg Bacilli Proteus Species 07/16/18 19:45 Blood - Peripheral Venous Blood Culture - Preliminary NO GROWTH OBTAINED AFTER 72 HOURS, INCUBATION TO CONTINUE FOR 2 DAYS. 07/16/18 19:30 Blood - Peripheral Venous Blood Culture - Preliminary NO GROWTH OBTAINED AFTER 72 HOURS, INCUBATION TO CONTINUE FOR 2 DAYS. CTAP 07/19: Focal hematomas are seen within the left inferior pelvis as on the previous exam of 07/16/2018. These hematomas appear unchanged in overall size although demonstrating somewhat increased density suggestive of interval increased internal clotting. Follow-up CT/MRI is suggested to document resolution and lack of underlying pathology. Acute thrombosis is again seen involving the inferior vena cava below the level of an inferior vena cava filter device in place. As on the prior study there is also acute thrombosis involving the common iliac and external iliac veins bilaterally. Increased subcutaneous edema is seen at the level of pelvis. There is also increased extraperitoneal soft tissue edema within the posterior pelvis bilaterally. These soft tissue changes are probably secondary to venous congestion. Correlate clinically. Hepatic steatosis. 2 mm nonobstructing left renal calculus. ASSESS: r/o Pelvic Hemorrhage/Hematoma Acute Blood Loss Anemia Acute Bilateral Extensive DVTs h/o IVC filter Acute Kidney Injury Asthma Anemia Thrombocytopenia PLAN: - inhaled bronchodilators as needed - monitor H/H - transfuse as needed - continue anticoagulation - pulse checks - monitor urine output, creatinine - CT A/P with contrast once renal failure resolves - O2 to keep SpO2 >90% - continue ICU monitoring for tenuous overall status DGL, ACNP-BC [facility] ICU PULM/CCM [id number]
[2018-07-20] MEDS: PANTOPRAZOLE 40 MG TABLET (FP) PO SCH (09:43)
[2018-07-20] MEDS: CALCIUM 500MG/VIT-D 200 UNITS COMBO TABLET (FP) PO SCH (09:43)
[2018-07-20] MEDS: FENOFIBRIC ACID 135 MG CAP PO SCH (09:45)
[2018-07-20] MEDS: BUDESONIDE/FORMETEROL FUMARATE 160/4.5 mcg INHALER IH SCH ×2 (09:46→21:47)
[2018-07-20] MEDS: TIOTROPIUM BROMIDE 2.5 MCG (SPIRIVA) RESPIMAT INHALER IH SCH (09:46)
[2018-07-20] MEDS: CEFTRIAXONE 2 GM in DEXTROSE 5%-WATER 100 ML IVPB SCH (09:50)
[2018-07-20] MEDS: LIDOCAINE 5% TOPICAL PATCH TP SCH (09:50)
[2018-07-20] MEDS: HEPARIN INFUSION - 25,000 UNITS/500 ML INFUS.BAG IVPB SCH (12:19)
--- NOTE | 2018-07-20 14:37 | PN ---
Progress Note, Physician History of Present Illness: patient says she is feeling better continues to have leg pain swelling of the left leg still present urine cx report noted continue heparin drip - Current Medication List Current Medications: Active Medications Acetaminophen (Tylenol -) 325 mg PO Q4H PRN PRN Reason: PAIN LEVEL 7 - 10 Last Admin: 07/20/18 06:37 Dose: 325 mg Atorvastatin Calcium (Lipitor -) 10 mg PO HS [facility] Last Admin: 07/19/18 21:54 Dose: 10 mg Budesonide/Formoterol Fumarate (Symbicort 160/4.5mcg -) 2 puff IH BID [facility] Last Admin: 07/20/18 09:46 Dose: 2 puff Calcium Carbonate/Cholecalciferol (Os-Ray 500+D -) 1 tab PO DAILY [facility] Last Admin: 07/20/18 09:43 Dose: 1 tab Cyclobenzaprine HCl (Flexeril -) 10 mg PO TID PRN PRN Reason: BACK PAIN Docusate Sodium (Colace -) 100 mg PO TID [facility] Last Admin: 07/20/18 06:37 Dose: 100 mg Fenofibric Acid (Trilipix -) 135 mg PO DAILY [facility] Last Admin: 07/20/18 09:45 Dose: 135 mg Heparin Sodium (Porcine) (Heparin -) 4,700 unit 40 unit/kg (4700 unit) IVPUSH PRN PRN PRN Reason: For aPTT 35 to 45 seconds Last Admin: 07/19/18 07:28 Dose: 4,700 unit Heparin Sodium (Porcine) (Heparin -) 9,400 unit 80 unit/kg (9400 unit) IVPUSH PRN PRN PRN Reason: aPTT <35 seconds Last Admin: 07/17/18 20:13 Dose: 9,400 unit Heparin Sodium/Dextrose (Heparin Infusion -) 25,000 units in 500 mls @ 42.336 mls/hr IVPB TITR [facility]; Protocol Last Admin: 07/20/18 12:19 Dose: 13.86 units/kg/hr, 32.6 mls/hr Ceftriaxone Sodium 2 gm/ (Dextrose) 100 mls @ 200 mls/hr IVPB DAILY [facility] Last Admin: 07/20/18 09:50 Dose: 200 mls/hr Insulin Aspart (Novolog Vial Sliding Scale -) 1 vial SQ ACHS [facility]; Protocol Last Admin: 07/20/18 12:25 Dose: 6 units Insulin Detemir (Levemir Vial) 60 units SQ AM [facility] Last Admin: 07/20/18 06:50 Dose: 60 units Insulin Detemir (Levemir Vial) 45 units SQ HS [facility] Last Admin: 07/19/18 21:56 Dose: 45 units Lidocaine (Lidoderm Patch -) 1 patch TP DAILY [facility] Last Admin: 07/20/18 09:50 Dose: 1 patch Mirtazapine (Remeron -) 7.5 mg PO HS [facility] Last Admin: 07/19/18 21:56 Dose: 7.5 mg Miscellaneous (Lidoderm Patch Removal) 1 each MC DAILY@2200 [facility] Last Admin: 07/19/18 21:56 Dose: 1 each Montelukast Sodium (Singulair -) 10 mg PO HS [facility] Last Admin: 07/19/18 21:54 Dose: 10 mg Oxycodone HCl (Roxicodone -) 5 mg PO Q4H PRN PRN Reason: PAIN LEVEL 7 - 10 Last Admin: 07/20/18 06:37 Dose: 5 mg Pantoprazole Sodium (Protonix -) 40 mg PO DAILY [facility] Last Admin: 07/20/18 09:43 Dose: 40 mg Tiotropium [place] (Spiriva Respimat) 2 puff IH DAILY [facility] Last Admin: 07/20/18 09:46 Dose: 2 puff - Objective Vital Signs: Vital Signs Temperature 98.4 F 07/20/18 12:00 Pulse Rate 79 07/20/18 12:00 Respiratory Rate 14 07/20/18 12:00 Blood Pressure 117/73 07/20/18 12:00 O2 Sat by Pulse Oximetry (%) 97 07/20/18 09:00 Constitutional: Yes: Calm, Mild Distress Cardiovascular: Yes: Regular Rate and Rhythm, S1, S2 Respiratory: Yes: Regular, CTA Bilaterally Gastrointestinal: Yes: Normal Bowel Sounds, Soft Musculoskeletal: Yes: Other Extremities: Yes: Other Neurological: Yes: Alert, Oriented Psychiatric: Yes: Alert, Oriented Labs: CBC, BMP 07/20/18 05:30 07/20/18 05:30 INR, PTT INR 1.33 (0.83-1.09) H 07/18/18 12:29 Fibrinogen 415.0 mg/dL (238-498) D 07/18/18 05:30 Assessment/Plan Problem List - Problems (1) DVT of lower extremity, bilateral Code(s): I82.403 - ACUTE EMBOLISM AND THOMBOS UNSP DEEP VEINS OF LOW EXTRM, BI (2) Back pain Code(s): M54.9 - DORSALGIA, UNSPECIFIED Qualifiers: Back pain location: low back pain Chronicity: unspecified Back pain laterality: right Sciatica presence: unspecified whether sciatica present Qualified Code(s): M54.5 - Low back pain (3) Hyperglycemia Code(s): R73.9 - HYPERGLYCEMIA, UNSPECIFIED (4) Injury of right foot Code(s): S99.921A - UNSPECIFIED INJURY OF RIGHT FOOT, INITIAL ENCOUNTER Qualifiers: Encounter type: initial encounter Qualified Code(s): S99.921A - Unspecified injury of right foot, initial encounter (5) URI (upper respiratory infection) Code(s): J06.9 - ACUTE UPPER RESPIRATORY INFECTION, UNSPECIFIED 6 uti plan continue current mgmt dvt mgmt continue abx close match continue anticoagulants await for identification of the bacteria cc 40 min
[2018-07-20] MEDS ORDERED: MORPHINE SULFATE 2 MG/ML VIAL IVPUSH ONE (21:19)
[2018-07-20] MEDS: MIRTAZAPINE 15 MG TABLET (FP) PO SCH (21:46)
[2018-07-20] MEDS: LIDOCAINE PATCH REMOVAL MC SCH (21:46)
[2018-07-20] MEDS: ATORVASTATIN CA 10 MG TABLET (FP) PO SCH (21:46)
[2018-07-20] MEDS: MONTELUKAST NA 10 MG TABLET PO SCH (21:46)
--- NOTE | 2018-07-20 23:38 | PN ---
Progress Note, Physician History of Present Illness: Pt still complains of pain to legs w/ swelling and unable to get out of bed - Current Medication List Current Medications: Active Medications Acetaminophen (Tylenol -) 325 mg PO Q4H PRN PRN Reason: PAIN LEVEL 7 - 10 Last Admin: 07/20/18 15:07 Dose: 325 mg Atorvastatin Calcium (Lipitor -) 10 mg PO HS [facility] Last Admin: 07/20/18 21:46 Dose: 10 mg Budesonide/Formoterol Fumarate (Symbicort 160/4.5mcg -) 2 puff IH BID [facility] Last Admin: 07/20/18 21:47 Dose: 2 puff Calcium Carbonate/Cholecalciferol (Os-Ray 500+D -) 1 tab PO DAILY [facility] Last Admin: 07/20/18 09:43 Dose: 1 tab Cyclobenzaprine HCl (Flexeril -) 10 mg PO TID PRN PRN Reason: BACK PAIN Docusate Sodium (Colace -) 100 mg PO TID [facility] Last Admin: 07/20/18 21:40 Dose: 100 mg Fenofibric Acid (Trilipix -) 135 mg PO DAILY [facility] Last Admin: 07/20/18 09:45 Dose: 135 mg Heparin Sodium (Porcine) (Heparin -) 4,700 unit 40 unit/kg (4700 unit) IVPUSH PRN PRN PRN Reason: For aPTT 35 to 45 seconds Last Admin: 07/19/18 07:28 Dose: 4,700 unit Heparin Sodium (Porcine) (Heparin -) 9,400 unit 80 unit/kg (9400 unit) IVPUSH PRN PRN PRN Reason: aPTT <35 seconds Last Admin: 07/17/18 20:13 Dose: 9,400 unit Heparin Sodium/Dextrose (Heparin Infusion -) 25,000 units in 500 mls @ 42.336 mls/hr IVPB TITR [facility]; Protocol Last Admin: 07/20/18 12:19 Dose: 13.86 units/kg/hr, 32.6 mls/hr Ceftriaxone Sodium 2 gm/ (Dextrose) 100 mls @ 200 mls/hr IVPB DAILY [facility] Last Admin: 07/20/18 09:50 Dose: 200 mls/hr Insulin Aspart (Novolog Vial Sliding Scale -) 1 vial SQ ACHS [facility]; Protocol Last Admin: 03/24/19 21:59 Dose: 6 units Insulin Detemir (Levemir Vial) 60 units SQ AM [facility] Last Admin: 07/20/18 06:50 Dose: 60 units Insulin Detemir (Levemir Vial) 45 units SQ HS [facility] Last Admin: 07/20/18 21:45 Dose: 45 units Lidocaine (Lidoderm Patch -) 1 patch TP DAILY [facility] Last Admin: 07/20/18 09:50 Dose: 1 patch Mirtazapine (Remeron -) 7.5 mg PO HS [facility] Last Admin: 07/20/18 21:46 Dose: 7.5 mg Miscellaneous (Lidoderm Patch Removal) 1 each MC DAILY@2200 [facility] Last Admin: 07/20/18 21:46 Dose: 1 each Montelukast Sodium (Singulair -) 10 mg PO HS [facility] Last Admin: 07/20/18 21:46 Dose: 10 mg Oxycodone HCl (Roxicodone -) 5 mg PO Q4H PRN PRN Reason: PAIN LEVEL 7 - 10 Last Admin: 07/20/18 19:57 Dose: 5 mg Pantoprazole Sodium (Protonix -) 40 mg PO DAILY [facility] Last Admin: 07/20/18 09:43 Dose: 40 mg Tiotropium [place] (Spiriva Respimat) 2 puff IH DAILY [facility] Last Admin: 07/20/18 09:46 Dose: 2 puff - Objective Vital Signs: Vital Signs Temperature 99.8 F H 07/20/18 22:00 Pulse Rate 96 H 07/20/18 22:00 Respiratory Rate 16 07/20/18 22:00 Blood Pressure 144/74 07/20/18 22:00 O2 Sat by Pulse Oximetry (%) 97 07/20/18 20:11 HENT: Yes: WNL Neck: Yes: WNL, Supple Cardiovascular: Yes: WNL, Regular Rate and Rhythm Respiratory: Yes: WNL, Regular, CTA Bilaterally Gastrointestinal: Yes: WNL, Normal Bowel Sounds, Soft, Abdomen, Obese Edema: LLE: 1+, RLE: 1+ Labs: CBC, BMP 07/20/18 05:30 07/20/18 05:30 INR, PTT INR 1.33 (0.83-1.09) H 07/18/18 12:29 Fibrinogen 415.0 mg/dL (238-498) D 07/18/18 05:30 Problem List - Problems (1) DVT of lower extremity, bilateral Assessment/Plan: Cont IV heparin DVT extending from IVC filter to inf vena cava/common iliac/external iliac B/L Monitor for bleeding H/O IVC filter Code(s): I82.403 - ACUTE EMBOLISM AND THOMBOS UNSP DEEP VEINS OF LOW EXTRM, BI (2) Hematoma Assessment/Plan: Repeat CT scan abd showed: No change in pelvic hematomas and multiple thrombosis 's Monitor for bleeding Code(s): T14.8XXA - OTHER INJURY OF UNSPECIFIED BODY REGION, INITIAL ENCOUNTER (3) UTI (urinary tract infection) Assessment/Plan: Urine culture (+) for lactose fermenting neg bacilli Cont IV ceftriaxone Code(s): N39.0 - URINARY TRACT INFECTION, SITE NOT SPECIFIED (4) Anemia Assessment/Plan: Acute blood loss anemia Monitor H/H Code(s): D64.9 - ANEMIA, UNSPECIFIED (5) Back pain Assessment/Plan: Chronic back pain Will need PT and enocurage OOB to chair Cont lidocaine/oxycodone/flexeril Code(s): M54.9 - DORSALGIA, UNSPECIFIED Qualifiers: Back pain location: low back pain Chronicity: unspecified Back pain laterality: right Sciatica presence: unspecified whether sciatica present Qualified Code(s): M54.5 - Low back pain (6) Diabetes Assessment/Plan: Cont sliding scale w/ coverage/levemir Code(s): E11.9 - TYPE 2 DIABETES MELLITUS WITHOUT COMPLICATIONS (7) GERD (gastroesophageal reflux disease) Assessment/Plan: Cont protonix Code(s): K21.9 - GASTRO-ESOPHAGEAL REFLUX DISEASE WITHOUT ESOPHAGITIS Qualifiers: Esophagitis presence: without esophagitis Qualified Code(s): K21.9 - Gastro -esophageal reflux disease without esophagitis (8) HLD (hyperlipidemia) Assessment/Plan: Cont lipitor/fenofibrate Code(s): E78.5 - HYPERLIPIDEMIA, UNSPECIFIED (9) Asthma Assessment/Plan: Cont spireva/symbicort Code(s): J45.909 - UNSPECIFIED ASTHMA, UNCOMPLICATED (10) Neuropathy due to type 2 diabetes mellitus Code(s): E11.40 - TYPE 2 DIABETES MELLITUS WITH DIABETIC NEUROPATHY, UNSP (11) ARF (acute renal failure) Assessment/Plan: Creatinine/Bun improved and now normal Code(s): N17.9 - ACUTE KIDNEY FAILURE, UNSPECIFIED (12) Obesity (BMI 30-39.9) Code(s): E66.9 - OBESITY, UNSPECIFIED
[2018-07-21] MEDS: HEPARIN INFUSION - 25,000 UNITS/500 ML INFUS.BAG IVPB SCH ×3 (03:00→17:14)
[2018-07-21] MEDS: oxyCODONE HCL 5 MG TABLET PO PRN ×2 (03:07→11:08)
[2018-07-21] MEDS ORDERED: MORPHINE SULFATE 2 MG/ML VIAL IVPUSH ONE (05:00)
[2018-07-21] MEDS: DOCUSATE SODIUM 100 MG CAPSULE (FP) PO SCH ×3 (05:13→23:05)
[2018-07-21] MEDS ORDERED: ACETAMINOPHEN 325 MG TABLET (FP) PO ONE (05:57)
[2018-07-21] MEDS: INSULIN (LEVEMIR) 100 UNITS/ML UNITS SQ SCH ×2 (06:11→23:06)
[2018-07-21] MEDS: INSULIN SLIDING SCALE (NOVOLOG) 1 VIAL SQ SCH ×4 (06:12→22:56)
[2018-07-21] MEDS: ACETAMINOPHEN 325 MG TABLET (FP) PO PRN ×3 (06:12→17:20)
[2018-07-21 06:49] LABS: HEMATOCRIT 24.4 % (32.4-45.2); HEMOGLOBIN 8.4 GM/dL (10.7-15.3); MCH 31.6 pg (25.7-33.7); MCHC 34.5 g/dl (32.0-36.0); MEAN CELL VOLUME 91.8 fl (80-96); MEAN PLT VOLUME 10.3 fl (7.5-11.1); PLATELET COUNT 161 K/MM3 (134-434); RBC 2.66 M/mm3 (3.60-5.2); RDW 15.2 % (11.6-15.6); WHITE BLOOD COUNT 8.9 K/mm3 (4.0-10.0)
[2018-07-21 06:50] LABS: ANION GAP 8 MMOL/L (8-16); BLOOD UREA NITROGEN 15 mg/dL (7-18); CHLORIDE 102 mmol/L (98-107); CO2 26 mmol/L (21-32); CREATININE 0.9 mg/dL (0.55-1.3); GLUCOSE,RANDOM 182 mg/dL (74-106); MAGNESIUM 2.1 mg/dL (1.8-2.4); PHOSPHOROUS 3.5 mg/dL (2.5-4.9); POTASSIUM 4.2 mmol/L (3.5-5.1); SODIUM 136 mmol/L (136-145)
--- NOTE | 2018-07-21 07:30 | PN ---
Physical Exam: SUBJECTIVE: Patient seen and examined, reported pain in bilateral lower extremities and lower abdomen. Pt also complains of her chronic back pain. OBJECTIVE: Vital Signs Period Temp Pulse Resp BP Sys/Gunter Pulse Ox Last 24 Hr 98 F-101.4 F 79-100 14-17 117-148/54-89 97-97 GENERAL: The patient is awake, alert, and fully oriented, in no acute distress. HEAD: Normal with no signs of trauma. EYES: PERRL, extraocular movements intact, sclera anicteric, conjunctiva clear. No ptosis. ENT: Ears normal, nares patent, oropharynx clear without exudates, moist mucous membranes. NECK: Trachea midline, full range of motion, supple. LUNGS: Breath sounds equal, clear to auscultation bilaterally, no wheezes, no crackles, no accessory muscle use. HEART: Regular rate and rhythm, S1, S2 without murmur, rub or gallop. ABDOMEN: Soft, tenderness to palpation of RLQ, LLQ and suprapubic area. normoactive bowel sounds, no guarding, no rebound, no hepatosplenomegaly, no masses. EXTREMITIES: 2+ pulses, warm, well-perfused. 2+ pitting edema bilaterally. NEUROLOGICAL: Cranial nerves II through XII grossly intact. Normal speech, gait not observed. PSYCH: Normal mood, normal affect. SKIN: Warm, dry, normal turgor, no rashes or lesions noted. Laboratory Results - last 24 hr 07/20/18 07/20/18 07/20/18 11:52 16:58 21:58 Sodium Potassium Chloride Carbon Dioxide Anion Gap BUN Creatinine Creat Clearance w eGFR POC Glucometer 152 176 181 Random Glucose Calcium Phosphorus Magnesium 07/21/18 07/21/18 05:30 06:04 Sodium 136 Potassium 4.2 Chloride 102 Carbon Dioxide 26 Anion Gap 8 BUN 15 Creatinine 0.9 Creat Clearance w eGFR 64.09 POC Glucometer 196 Random Glucose 182 H Calcium 9.0 Phosphorus 3.5 Magnesium 2.1 Active Medications Generic Name Dose Route Start Last Admin Trade Name Freq PRN Reason Stop Dose Admin Acetaminophen 325 mg 07/16/18 20:31 07/21/18 06:12 Tylenol - PO 325 mg Q4H PRN Administration PAIN LEVEL 7 - 10 Atorvastatin Calcium 10 mg 07/17/18 22:00 07/20/18 21:46 Lipitor - PO 10 mg HS [facility] Administration Budesonide/Formoterol Fumarate 2 puff 07/17/18 10:00 07/20/18 21:47 Symbicort 160/4.5mcg - IH 2 puff BID [facility] Administration Calcium Carbonate/Cholecalciferol 1 tab 07/17/18 10:00 07/20/18 09:43 Os-Ary 500+D - PO 1 tab DAILY [facility] Administration Cyclobenzaprine HCl 10 mg 07/17/18 02:57 Flexeril - PO TID PRN BACK PAIN Docusate Sodium 100 mg 07/17/18 06:00 07/21/18 05:13 Colace - PO 100 mg TID [facility] Administration Fenofibric Acid 135 mg 07/17/18 10:00 07/20/18 09:45 Trilipix - PO 135 mg DAILY [facility] Administration Heparin Sodium (Porcine) 4,700 unit 07/17/18 08:58 07/19/18 07:28 Heparin - 40 unit/kg (4700 unit) 4,700 unit IVPUSH Administration PRN PRN For aPTT 35 to 45 seconds Heparin Sodium (Porcine) 9,400 unit 07/17/18 08:58 07/17/18 20:13 Heparin - 80 unit/kg (9400 unit) 9,400 unit IVPUSH Administration PRN PRN aPTT <35 seconds Heparin Sodium/Dextrose 25,000 units in 500 mls @ 42.336 mls/hr 07/17/18 09: 00 07/21/18 03:00 Heparin Infusion - IVPB 13.86 units/kg/hr TITR [facility] 32.6 mls/hr Administration Protocol 18 UNITS/KG/HR Ceftriaxone Sodium 2 gm/ 100 mls @ 200 mls/hr 07/18/18 20:01 07/20/18 09:50 Dextrose IVPB 200 mls/hr DAILY [facility] Administration Insulin Aspart 1 vial 07/19/18 16:30 07/21/18 06:12 Novolog Vial Sliding Scale - SQ 6 units ACHS [facility] Administration Protocol Insulin Detemir 60 units 07/20/18 07:00 07/21/18 06:11 Levemir Vial SQ 60 units AM [facility] Administration Insulin Detemir 45 units 07/19/18 22:00 07/20/18 21:45 Levemir Vial SQ 45 units HS [facility] Administration Lidocaine 1 patch 07/17/18 10:00 07/20/18 09:50 Lidoderm Patch - TP 1 patch DAILY [facility] Administration Mirtazapine 7.5 mg 07/17/18 22:00 07/20/18 21:46 Remeron - PO 7.5 mg HS [facility] Administration Miscellaneous 1 each 07/17/18 22:00 07/20/18 21:46 Lidoderm Patch Removal MC 1 each DAILY@2200 [facility] Administration Montelukast Sodium 10 mg 07/17/18 22:00 07/20/18 21:46 Singulair - PO 10 mg HS [facility] Administration Oxycodone HCl 5 mg 07/16/18 20:31 07/21/18 03:07 Roxicodone - PO 5 mg Q4H PRN Administration PAIN LEVEL 7 - 10 Pantoprazole Sodium 40 mg 07/17/18 10:00 07/20/18 09:43 Protonix - PO 40 mg DAILY [facility] Administration Tiotropium [place] 2 puff 07/17/18 10:00 07/20/18 09:46 Spiriva Respimat IH 2 puff DAILY [facility] Administration ASSESSMENT & PLAN 57 yo F with PMHx of chronic back pain, DVT/PE (2011, treated with anticoagulation which was discontinued about 3 months ago due to frequent falls) , who presents for increased pain to her low back and lower extremities and found to have extensive b/l DVTs with b/l bleeding adnexal masses now on heparin drip and sent to ICU for close monitoring #HEM/ONC -Extensive b/l DVTs -Combined thrombosis and bleed- per Dr Clemons could be in setting of vasculitis -D/W Dr Clemons- Continue heparin drip -Heparin drip -CBC Q6H -Pt/PTT -Fibrinogen -H/H stable --Continue to trend --If continuing to decrease, plan for repeat CT chest/abdomen/pelvis -Heparin drip -Plan for Lovenox tomorrow per Dr. Clemons -Per Dr Clemons- If pt decompensates will need emergency IR procedure (she said she D/W Dr Delatorre) -Vascular Sx consult- ED discussed with Dr Mary -Pt not surgical candidate was referred for IR procedure -Rheum consult -CRP 13.5 07/17/18 -Out of bed, PT ordered #THROMBOCYTOPENIA -PLT = 161 07/21/18 -Improved -Continue to monitor #RENAL #PILO -Improving Cr 3.1>>2.8>>1.7>>1.6>>1.3>>1.0>>0.9 -Dr Adame Consulted -Abd - no chronic renal dx noted -UA on 07/16/18 negative for UTI -Second UA positive for UTI, Urine culture grew lactose fermenting negative bacilli, proteus -Ceftriaxone started for UTI -DC jiang today #[employer] #Bilateral adnexal hematomas -OB consulted #ENDO -Metformin held -ISS Q6H -BGM ACHS -Levemir 60U AM per endo -Levemir 45U HS per endo -Endo on board #CARDIOLOGY Hemodynamically stable at this time Cardiac monitoring -Heparin drip -ECHO 07/17/18: normal LV function. EF 60-65%. Trace tricuspid regurgitation. #History of HLD -Atorvastatin 10 mg PO HS [facility] -Fenofibrate 135 mg PO daily [facility] #RESPIRATORY Stable #History of Asthma/Bronchitis -Montelukast 10 mg PO HS [facility] -Spiriva 2 puff IH daily -Symbicort 2puff IH BID [facility] #GI #History of GERD -Protonix 40 mg PO daily #NEURO Stable -Mirtazapine 7.5 mg PO HS #MSK #History of back pain -Lidoderm patch -Oxycodone 5 mg PO Q4H PRN -Acetaminophen 325 mg PO Q4H PRN -Flexeril 10 mg PO TID PRN #FEN No IVF Diabetic diet Physical therapy ordered #PPx Heparin drip #DISPO Tele Full code Visit type - Emergency Visit Emergency Visit: Yes ED Registration Date: 07/16/18 Care time: The patient presented to the Emergency Department on the above date and was hospitalized for further evaluation of their emergent condition. - New Patient This patient is new to me today: No - Critical Care Critical Care patient: Yes Total Critical Care Time (in minutes): 35 Critical Care Statement: The care of this patient involved high complexity decision making to prevent further life threatening deterioration of the patient 's condition and/or to evaluate & treat vital organ system(s) failure or risk of failure. - Discharge Referral Referred to [facility] Med P.C.: No
[2018-07-21 07:36] LABS: INR 1.44 (0.83-1.09); PROTHROMBIN TIME (PATIENT) 17.1 SEC (9.7-13.0)
[2018-07-21 09:52] LABS: HEMATOCRIT 23.5 % (32.4-45.2); HEMOGLOBIN 8.1 GM/dL (10.7-15.3); MCH 31.1 pg (25.7-33.7); MCHC 34.4 g/dl (32.0-36.0); MEAN CELL VOLUME 90.2 fl (80-96); MEAN PLT VOLUME 9.3 fl (7.5-11.1); PLATELET COUNT 155 K/MM3 (134-434); RDW 15.2 % (11.6-15.6); WHITE BLOOD COUNT 8.6 K/mm3 (4.0-10.0)
[2018-07-21] MEDS ORDERED: DEXTROSE 5%-WATER 100 ML IVPB ONE (10:19)
[2018-07-21] MEDS ORDERED: PT OWN MED DRAWER 7, Y5N ONE (10:20)
[2018-07-21] MEDS: HEPARIN NA (PORCINE) 5,000 UNITS/ML 1ML VIAL IVPUSH PRN (10:22)
--- NOTE | 2018-07-21 10:25 | PN ---
Progress Note (short form) - Note Progress Note: Renal follow up for PILO Pt seen and examined in the ICU no overnight events Vital Signs Temperature 100.2 F H 07/21/18 06:00 Pulse Rate 95 H 07/21/18 07:33 Respiratory Rate 18 07/21/18 07:33 Blood Pressure 122/71 07/21/18 07:33 O2 Sat by Pulse Oximetry (%) 95 07/21/18 07:33 Intake & Output 07/18/18 07/19/18 07/20/18 07/21/18 23:59 23:59 23:59 23:59 Intake Total 2285 1458.8 1693.6 641.2 Output Total 1700 2200 1300 300 Balance 585 -741.2 393.6 341.2 Weight 117.934 kg 120.701 kg 128.423 kg 131.496 kg NAD RRR, no M/R CTA, no rales soft, obese, NT/ND no bladder distension ++ edema in LE extending to pelvis no focal neurologic defects CBC, BMP 07/21/18 09:40 07/21/18 05:30 Current Medications Acetaminophen (Tylenol -) 325 mg PO Q4H PRN PRN Reason: PAIN LEVEL 7 - 10 Last Admin: 07/21/18 06:12 Dose: 325 mg Atorvastatin Calcium (Lipitor -) 10 mg PO HS [facility] Last Admin: 07/20/18 21:46 Dose: 10 mg Budesonide/Formoterol Fumarate (Symbicort 160/4.5mcg -) 2 puff IH BID [facility] Last Admin: 07/20/18 21:47 Dose: 2 puff Calcium Carbonate/Cholecalciferol (Os-Ray 500+D -) 1 tab PO DAILY [facility] Last Admin: 07/20/18 09:43 Dose: 1 tab Cyclobenzaprine HCl (Flexeril -) 10 mg PO TID PRN PRN Reason: BACK PAIN Docusate Sodium (Colace -) 100 mg PO TID [facility] Last Admin: 07/21/18 05:13 Dose: 100 mg Fenofibric Acid (Trilipix -) 135 mg PO DAILY [facility] Last Admin: 07/20/18 09:45 Dose: 135 mg Heparin Sodium (Porcine) (Heparin -) 4,700 unit 40 unit/kg (4700 unit) IVPUSH PRN PRN PRN Reason: For aPTT 35 to 45 seconds Last Admin: 07/19/18 07:28 Dose: 4,700 unit Heparin Sodium (Porcine) (Heparin -) 9,400 unit 80 unit/kg (9400 unit) IVPUSH PRN PRN PRN Reason: aPTT <35 seconds Last Admin: 07/17/18 20:13 Dose: 9,400 unit Heparin Sodium/Dextrose (Heparin Infusion -) 25,000 units in 500 mls @ 42.336 mls/hr IVPB TITR [facility]; Protocol Last Admin: 07/21/18 03:00 Dose: 13.86 units/kg/hr, 32.6 mls/hr Ceftriaxone Sodium 2 gm/ (Dextrose) 100 mls @ 200 mls/hr IVPB DAILY [facility] Last Admin: 07/20/18 09:50 Dose: 200 mls/hr Insulin Aspart (Novolog Vial Sliding Scale -) 1 vial SQ ACHS [facility]; Protocol Last Admin: 07/21/18 06:12 Dose: 6 units Insulin Detemir (Levemir Vial) 60 units SQ AM [facility] Last Admin: 07/21/18 06:11 Dose: 60 units Insulin Detemir (Levemir Vial) 45 units SQ HS [facility] Last Admin: 07/20/18 21:45 Dose: 45 units Lidocaine (Lidoderm Patch -) 1 patch TP DAILY [facility] Last Admin: 07/20/18 09:50 Dose: 1 patch Mirtazapine (Remeron -) 7.5 mg PO HS [facility] Last Admin: 07/20/18 21:46 Dose: 7.5 mg Miscellaneous (Lidoderm Patch Removal) 1 each MC DAILY@2200 [facility] Last Admin: 07/20/18 21:46 Dose: 1 each Montelukast Sodium (Singulair -) 10 mg PO HS [facility] Last Admin: 07/20/18 21:46 Dose: 10 mg Oxycodone HCl (Roxicodone -) 5 mg PO Q4H PRN PRN Reason: PAIN LEVEL 7 - 10 Last Admin: 07/21/18 03:07 Dose: 5 mg Pantoprazole Sodium (Protonix -) 40 mg PO DAILY [facility] Last Admin: 07/20/18 09:43 Dose: 40 mg Tiotropium [place] (Spiriva Respimat) 2 puff IH DAILY [facility] Last Admin: 07/20/18 09:46 Dose: 2 puff 57 year old woman with 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 #Non-oliguric Acute Kidney Injury r/o renal vein thrombosis vs ATN (NSAID + ACEi ) vs. volume depletion #Extensive LE DVT #DM #Anemia/Thrombocytopenia #Hyponatremia #Asthma Renal function now improved to baseline off IVF now can resume ACEi as needed for BP control will sign off case please call with any questions or concerns Francisco Serrano DO
[2018-07-21] MEDS: PANTOPRAZOLE 40 MG TABLET (FP) PO SCH (10:27)
[2018-07-21] MEDS: CALCIUM 500MG/VIT-D 200 UNITS COMBO TABLET (FP) PO SCH (10:27)
[2018-07-21] MEDS: CEFTRIAXONE 2 GM in DEXTROSE 5%-WATER 100 ML IVPB SCH (10:27)
[2018-07-21] MEDS: LIDOCAINE 5% TOPICAL PATCH TP SCH (10:28)
--- NOTE | 2018-07-21 10:28 | PN ---
Physical Exam: HEMATOLOGY/ONCOLOGY PROGRESS NOTE SUBJECTIVE: Patient seen and examined at bedside. States that she is feeling no different from yesterday, with her legs appearing just as swollen as when she came in. Reports mild pain on the medial aspect of b/l thighs. Breathing well and denies chest pain or shortness of breath. OBJECTIVE: Vital Signs Period Temp Pulse Resp BP Sys/Gunter Pulse Ox Last 24 Hr 98.4 F-101.4 F 79-100 14-18 117-148/54-89 95-97 GENERAL: A&Ox3, no acute distress EYES: PERRLA, EOMI ENT: Moist mucus membranes NECK: No JVD LUNGS: CTA, no wheezes HEART: mildly tachycardic, no murmurs ABDOMEN: Obese, soft and nontender EXTREMITIES: 2+ pulses, 2+ edema noted on b/l lower extremities, extremities well perfused and warm NEUROLOGICAL: Cranial nerves II-XII intact. Laboratory Results - last 24 hr 07/20/18 07/20/18 07/20/18 11:52 16:58 21:58 WBC RBC Hgb Hct MCV MCH MCHC RDW Plt Count MPV PT with INR INR PTT (Actin FS) Sodium Potassium Chloride Carbon Dioxide Anion Gap BUN Creatinine Creat Clearance w eGFR POC Glucometer 152 176 181 Random Glucose Calcium Phosphorus Magnesium 07/21/18 07/21/18 07/21/18 05:30 05:30 05:30 WBC 8.9 RBC 2.66 L Hgb 8.4 L Hct 24.4 L MCV 91.8 MCH 31.6 MCHC 34.5 RDW 15.2 Plt Count 161 MPV 10.3 PT with INR 17.10 H INR 1.44 H PTT (Actin FS) 44.4 H Sodium Potassium Chloride Carbon Dioxide Anion Gap BUN Creatinine Creat Clearance w eGFR POC Glucometer Random Glucose Calcium Phosphorus Magnesium 07/21/18 07/21/18 07/21/18 05:30 06:04 09:40 WBC 8.6 RBC 2.60 L Hgb 8.1 L Hct 23.5 L MCV 90.2 MCH 31.1 MCHC 34.4 RDW 15.2 Plt Count 155 MPV 9.3 PT with INR INR PTT (Actin FS) Sodium 136 Potassium 4.2 Chloride 102 Carbon Dioxide 26 Anion Gap 8 BUN 15 Creatinine 0.9 Creat Clearance w eGFR 64.09 POC Glucometer 196 Random Glucose 182 H Calcium 9.0 Phosphorus 3.5 Magnesium 2.1 Active Medications Generic Name Dose Route Start Last Admin Trade Name Freq PRN Reason Stop Dose Admin Acetaminophen 325 mg 07/16/18 20:31 07/21/18 06:12 Tylenol - PO 325 mg Q4H PRN Administration PAIN LEVEL 7 - 10 Atorvastatin Calcium 10 mg 07/17/18 22:00 07/20/18 21:46 Lipitor - PO 10 mg HS [facility] Administration Budesonide/Formoterol Fumarate 2 puff 07/17/18 10:00 07/20/18 21:47 Symbicort 160/4.5mcg - IH 2 puff BID [facility] Administration Calcium Carbonate/Cholecalciferol 1 tab 07/17/18 10:00 07/20/18 09:43 Os-Ray 500+D - PO 1 tab DAILY [facility] Administration Cyclobenzaprine HCl 10 mg 07/17/18 02:57 Flexeril - PO TID PRN BACK PAIN Docusate Sodium 100 mg 07/17/18 06:00 07/21/18 05:13 Colace - PO 100 mg TID [facility] Administration Fenofibric Acid 135 mg 07/17/18 10:00 07/20/18 09:45 Trilipix - PO 135 mg DAILY [facility] Administration Heparin Sodium (Porcine) 4,700 unit 07/17/18 08:58 07/19/18 07:28 Heparin - 40 unit/kg (4700 unit) 4,700 unit IVPUSH Administration PRN PRN For aPTT 35 to 45 seconds Heparin Sodium (Porcine) 9,400 unit 07/17/18 08:58 07/17/18 20:13 Heparin - 80 unit/kg (9400 unit) 9,400 unit IVPUSH Administration PRN PRN aPTT <35 seconds Heparin Sodium/Dextrose 25,000 units in 500 mls @ 42.336 mls/hr 07/17/18 09: 00 07/21/18 03:00 Heparin Infusion - IVPB 13.86 units/kg/hr TITR [facility] 32.6 mls/hr Administration Protocol 18 UNITS/KG/HR Ceftriaxone Sodium 2 gm/ 100 mls @ 200 mls/hr 07/18/18 20:01 07/20/18 09:50 Dextrose IVPB 200 mls/hr DAILY [facility] Administration Insulin Aspart 1 vial 07/19/18 16:30 07/21/18 06:12 Novolog Vial Sliding Scale - SQ 6 units ACHS [facility] Administration Protocol Insulin Detemir 60 units 07/20/18 07:00 07/21/18 06:11 Levemir Vial SQ 60 units AM [facility] Administration Insulin Detemir 45 units 07/19/18 22:00 07/20/18 21:45 Levemir Vial SQ 45 units HS [facility] Administration Lidocaine 1 patch 07/17/18 10:00 07/20/18 09:50 Lidoderm Patch - TP 1 patch DAILY [facility] Administration Mirtazapine 7.5 mg 07/17/18 22:00 07/20/18 21:46 Remeron - PO 7.5 mg HS [facility] Administration Miscellaneous 1 each 07/17/18 22:00 07/20/18 21:46 Lidoderm Patch Removal MC 1 each DAILY@2200 [facility] Administration Montelukast Sodium 10 mg 07/17/18 22:00 07/20/18 21:46 Singulair - PO 10 mg HS [facility] Administration Oxycodone HCl 5 mg 07/16/18 20:31 07/21/18 03:07 Roxicodone - PO 5 mg Q4H PRN Administration PAIN LEVEL 7 - 10 Pantoprazole Sodium 40 mg 07/17/18 10:00 07/20/18 09:43 Protonix - PO 40 mg DAILY [facility] Administration Tiotropium [place] 2 puff 07/17/18 10:00 07/20/18 09:46 Spiriva Respimat IH 2 puff DAILY [facility] Administration ASSESSMENT/PLAN: DRAFT 57 year old female hx of back pain, 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 vasculitis -can continue anticoagulation PILO resolved UTI w/ ESBL/Proteus: continue abx per primary/ID Back pain: continue pain management per primary team Alex Silver, PGY2 Discussed w/ Dr. Clemons Visit type - Emergency Visit Emergency Visit: No - New Patient This patient is new to me today: Yes Date on this admission: 07/21/18 - Critical Care Critical Care patient: No
[2018-07-21] MEDS: BUDESONIDE/FORMETEROL FUMARATE 160/4.5 mcg INHALER IH SCH ×2 (10:30→23:03)
[2018-07-21] MEDS: TIOTROPIUM BROMIDE 2.5 MCG (SPIRIVA) RESPIMAT INHALER IH SCH (10:30)
[2018-07-21] MEDS: FENOFIBRIC ACID 135 MG CAP PO SCH (10:31)
--- NOTE | 2018-07-21 12:29 | PN ---
Teaching Attending Note Name of Resident: Love Richardson ATTENDING PHYSICIAN STATEMENT I saw and evaluated the patient. I reviewed the resident's note and discussed the case with the resident. I agree with the resident's findings and plan as documented. SUBJECTIVE: Patient seen and examined in the ICU. Awake and alert. Breathing is non- labored. Still with bilateral leg edema. Some mild abdominal discomfort, but slowly improving. OBJECTIVE: Intake & Output 07/18/18 07/19/18 07/20/18 07/21/18 23:59 23:59 23:59 23:59 Intake Total 2285 1458.8 1693.6 641.2 Output Total 1700 2200 1300 300 Balance 585 -741.2 393.6 341.2 Weight 260 lb 266 lb 1.6 oz 283 lb 2 oz 289 lb 14.4 oz Last Vital Signs Temp Pulse Resp BP Pulse Ox 98.8 F 89 16 127/64 95 07/21/18 10:00 07/21/18 10:00 07/21/18 10:00 07/21/18 10:00 07/21/18 07:33 Active Medications Acetaminophen (Tylenol -) 325 mg PO Q4H PRN PRN Reason: PAIN LEVEL 7 - 10 Last Admin: 07/21/18 06:12 Dose: 325 mg Atorvastatin Calcium (Lipitor -) 10 mg PO HS [facility] Last Admin: 07/20/18 21:46 Dose: 10 mg Budesonide/Formoterol Fumarate (Symbicort 160/4.5mcg -) 2 puff IH BID [facility] Last Admin: 07/21/18 10:30 Dose: 2 puff Calcium Carbonate/Cholecalciferol (Os-Ray 500+D -) 1 tab PO DAILY [facility] Last Admin: 07/21/18 10:27 Dose: 1 tab Cyclobenzaprine HCl (Flexeril -) 10 mg PO TID PRN PRN Reason: BACK PAIN Docusate Sodium (Colace -) 100 mg PO TID [facility] Last Admin: 07/21/18 05:13 Dose: 100 mg Fenofibric Acid (Trilipix -) 135 mg PO DAILY [facility] Last Admin: 07/21/18 10:31 Dose: 135 mg Heparin Sodium (Porcine) (Heparin -) 4,700 unit 40 unit/kg (4700 unit) IVPUSH PRN PRN PRN Reason: For aPTT 35 to 45 seconds Last Admin: 07/21/18 10:22 Dose: 4,700 unit Heparin Sodium (Porcine) (Heparin -) 9,400 unit 80 unit/kg (9400 unit) IVPUSH PRN PRN PRN Reason: aPTT <35 seconds Last Admin: 07/17/18 20:13 Dose: 9,400 unit Heparin Sodium/Dextrose (Heparin Infusion -) 25,000 units in 500 mls @ 42.336 mls/hr IVPB TITR [facility]; Protocol Last Admin: 07/21/18 10:28 Dose: Not Given Ceftriaxone Sodium 2 gm/ (Dextrose) 100 mls @ 200 mls/hr IVPB DAILY [facility] Last Admin: 07/21/18 10:27 Dose: 200 mls/hr Insulin Aspart (Novolog Vial Sliding Scale -) 1 vial SQ ACHS [facility]; Protocol Last Admin: 07/21/18 10:46 Dose: 6 units Insulin Detemir (Levemir Vial) 60 units SQ AM [facility] Last Admin: 07/21/18 06:11 Dose: 60 units Insulin Detemir (Levemir Vial) 45 units SQ HS [facility] Last Admin: 07/20/18 21:45 Dose: 45 units Lidocaine (Lidoderm Patch -) 1 patch TP DAILY [facility] Last Admin: 07/21/18 10:28 Dose: 1 patch Mirtazapine (Remeron -) 7.5 mg PO [facility] Last Admin: 07/20/18 21:46 Dose: 7.5 mg Miscellaneous (Lidoderm Patch Removal) 1 each MC DAILY@2200 [facility] Last Admin: 07/20/18 21:46 Dose: 1 each Montelukast Sodium (Singulair -) 10 mg PO HS [facility] Last Admin: 07/20/18 21:46 Dose: 10 mg Oxycodone HCl (Roxicodone -) 5 mg PO Q4H PRN PRN Reason: PAIN LEVEL 7 - 10 Last Admin: 07/21/18 03:07 Dose: 5 mg Pantoprazole Sodium (Protonix -) 40 mg PO DAILY [facility] Last Admin: 07/21/18 10:27 Dose: 40 mg Tiotropium [place] (Spiriva Respimat) 2 puff IH DAILY [facility] Last Admin: 07/21/18 10:30 Dose: 2 puff Gen: Awake and alert, NAD Heart: RRR Lung: decreased breath sounds at the bases Abd: soft, obese, mild tenderness in the back/lower abdomen Ext: + edema Laboratory Results - last 24 hr 07/20/18 07/20/18 07/21/18 16:58 21:58 05:30 WBC 8.9 RBC 2.66 L Hgb 8.4 L Hct 24.4 L MCV 91.8 MCH 31.6 MCHC 34.5 RDW 15.2 Plt Count 161 MPV 10.3 PT with INR INR PTT (Actin FS) Sodium Potassium Chloride Carbon Dioxide Anion Gap BUN Creatinine Creat Clearance w eGFR POC Glucometer 176 181 Random Glucose Calcium Phosphorus Magnesium 07/21/18 07/21/18 07/21/18 05:30 05:30 05:30 WBC RBC Hgb Hct MCV MCH MCHC RDW Plt Count MPV PT with INR 17.10 H INR 1.44 H PTT (Actin FS) 44.4 H Sodium 136 Potassium 4.2 Chloride 102 Carbon Dioxide 26 Anion Gap 8 BUN 15 Creatinine 0.9 Creat Clearance w eGFR 64.09 POC Glucometer Random Glucose 182 H Calcium 9.0 Phosphorus 3.5 Magnesium 2.1 07/21/18 07/21/18 07/21/18 06:04 09:40 10:41 WBC 8.6 RBC 2.60 L Hgb 8.1 L Hct 23.5 L MCV 90.2 MCH 31.1 MCHC 34.4 RDW 15.2 Plt Count 155 MPV 9.3 PT with INR INR PTT (Actin FS) Sodium Potassium Chloride Carbon Dioxide Anion Gap BUN Creatinine Creat Clearance w eGFR POC Glucometer 196 163 Random Glucose Calcium Phosphorus Magnesium ASSESSMENT AND PLAN: r/o Pelvic Hemorrhage/Hematoma Acute Blood Loss Anemia Acute Bilateral Extensive DVTs h/o IVC filter Acute Kidney Injury Asthma Anemia Thrombocytopenia - Will be started in LMWH per Heme tomorrow - monitor H/H - transfuse as needed - pulse checks - IVF - monitor urine output, creatinine - O2 to keep SpO2 >90% - inhaled bronchodilators as needed - 4W / 4S monitoring Dr Lr
--- NOTE | 2018-07-21 14:20 | PN ---
Progress Note, Physician History of Present Illness: stable improving main issue is pain swelling stable - Current Medication List Current Medications: Active Medications Acetaminophen (Tylenol -) 325 mg PO Q4H PRN PRN Reason: PAIN LEVEL 7 - 10 Last Admin: 07/21/18 06:12 Dose: 325 mg Atorvastatin Calcium (Lipitor -) 10 mg PO HS [facility] Last Admin: 07/20/18 21:46 Dose: 10 mg Budesonide/Formoterol Fumarate (Symbicort 160/4.5mcg -) 2 puff IH BID [facility] Last Admin: 07/21/18 10:30 Dose: 2 puff Calcium Carbonate/Cholecalciferol (Os-Ray 500+D -) 1 tab PO DAILY [facility] Last Admin: 07/21/18 10:27 Dose: 1 tab Cyclobenzaprine HCl (Flexeril -) 10 mg PO TID PRN PRN Reason: BACK PAIN Docusate Sodium (Colace -) 100 mg PO TID [facility] Last Admin: 07/21/18 05:13 Dose: 100 mg Fenofibric Acid (Trilipix -) 135 mg PO DAILY [facility] Last Admin: 07/21/18 10:31 Dose: 135 mg Heparin Sodium (Porcine) (Heparin -) 4,700 unit 40 unit/kg (4700 unit) IVPUSH PRN PRN PRN Reason: For aPTT 35 to 45 seconds Last Admin: 07/21/18 10:22 Dose: 4,700 unit Heparin Sodium (Porcine) (Heparin -) 9,400 unit 80 unit/kg (9400 unit) IVPUSH PRN PRN PRN Reason: aPTT <35 seconds Last Admin: 07/17/18 20:13 Dose: 9,400 unit Heparin Sodium/Dextrose (Heparin Infusion -) 25,000 units in 500 mls @ 42.336 mls/hr IVPB TITR [facility]; Protocol Last Admin: 07/21/18 10:28 Dose: Not Given Ceftriaxone Sodium 2 gm/ (Dextrose) 100 mls @ 200 mls/hr IVPB DAILY [facility] Last Admin: 07/21/18 10:27 Dose: 200 mls/hr Insulin Aspart (Novolog Vial Sliding Scale -) 1 vial SQ ACHS [facility]; Protocol Last Admin: 07/21/18 10:46 Dose: 6 units Insulin Detemir (Levemir Vial) 60 units SQ AM [facility] Last Admin: 07/21/18 06:11 Dose: 60 units Insulin Detemir (Levemir Vial) 45 units SQ HS [facility] Last Admin: 07/20/18 21:45 Dose: 45 units Lidocaine (Lidoderm Patch -) 1 patch TP DAILY [facility] Last Admin: 07/21/18 10:28 Dose: 1 patch Mirtazapine (Remeron -) 7.5 mg PO HS [facility] Last Admin: 07/20/18 21:46 Dose: 7.5 mg Miscellaneous (Lidoderm Patch Removal) 1 each MC DAILY@2200 [facility] Last Admin: 07/20/18 21:46 Dose: 1 each Montelukast Sodium (Singulair -) 10 mg PO [facility] Last Admin: 07/20/18 21:46 Dose: 10 mg Pantoprazole Sodium (Protonix -) 40 mg PO DAILY [facility] Last Admin: 07/21/18 10:27 Dose: 40 mg Tiotropium [place] (Spiriva Respimat) 2 puff IH DAILY [facility] Last Admin: 07/21/18 10:30 Dose: 2 puff - Objective Vital Signs: Vital Signs Temperature 98.8 F 07/21/18 10:00 Pulse Rate 86 07/21/18 12:00 Respiratory Rate 17 07/21/18 12:00 Blood Pressure 138/69 07/21/18 12:00 O2 Sat by Pulse Oximetry (%) 95 07/21/18 07:33 Constitutional: Yes: Calm, Mild Distress Cardiovascular: Yes: Regular Rate and Rhythm Respiratory: Yes: Regular, CTA Bilaterally Gastrointestinal: Yes: Normal Bowel Sounds, Soft Musculoskeletal: Yes: WNL Extremities: Yes: Other Edema: LLE: 1+, RLE: Trace Neurological: Yes: Alert, Oriented Psychiatric: Yes: Alert, Oriented Labs: CBC, BMP 07/21/18 09:40 07/21/18 05:30 INR, PTT INR 1.44 (0.83-1.09) H 07/21/18 05:30 Fibrinogen 415.0 mg/dL (238-498) D 07/18/18 05:30 Assessment/Plan Problem List - Problems (1) DVT of lower extremity, bilateral Code(s): I82.403 - ACUTE EMBOLISM AND THOMBOS UNSP DEEP VEINS OF LOW EXTRM, BI (2) Back pain Code(s): M54.9 - DORSALGIA, UNSPECIFIED Qualifiers: Back pain location: low back pain Chronicity: unspecified Back pain laterality: right Sciatica presence: unspecified whether sciatica present Qualified Code(s): M54.5 - Low back pain (3) Hyperglycemia Code(s): R73.9 - HYPERGLYCEMIA, UNSPECIFIED (4) Injury of right foot Code(s): S99.921A - UNSPECIFIED INJURY OF RIGHT FOOT, INITIAL ENCOUNTER Qualifiers: Encounter type: initial encounter Qualified Code(s): S99.921A - Unspecified injury of right foot, initial encounter (5) URI (upper respiratory infection) Code(s): J06.9 - ACUTE UPPER RESPIRATORY INFECTION, UNSPECIFIED 6 uti patients urine has esbl plan continue abx close watch on fevers mgmt as per icu rest as per the team
[2018-07-21] MEDS ORDERED: oxyCODONE HCL 5 MG TABLET PO PRN (17:05)
--- NOTE | 2018-07-21 19:43 | PN ---
Progress Note (short form) - Note Progress Note: patient seen and examined feels better Last Vital Signs Temp Pulse Resp BP Pulse Ox 98.4 F 91 H 16 124/74 97 07/19/18 14:00 07/19/18 14:00 07/19/18 14:00 07/19/18 14:00 07/19/18 09:00 Cor: RSR, No murmurs, No gallops Lungs: Clear to P&A Abd: Soft, Normal bowel sounds, No organomegaly Ext:3 + edema b/l labs/meds reviewed a/p 57 year old female, with a significant past medical history of chronic back pain , h/o unprovoked RLE DVT/PE (2014, treated with anticoagulation upuntil id 2017 and then discontinued due to frequent falls, also with superficial vein thrombosis in 06/2017 on prophy lovenox up until 3 months ago but was discontinued due to falls. Thrombophilia w/u was negative in the past. Imaging studies -- CT and u/s extensive DVT from ivc to iliacs to b/l lower extremities. Pelvic hematoma stable On heparin drip -- switching to lovenox ESBL and proteus UTI --management per ID
[2018-07-21] MEDS ORDERED: ENOXAPARIN NA (PORCINE) 120 MG/0.8 ML DISP.SYRIN SQ SCH (19:45)
[2018-07-21] MEDS ORDERED: ENOXAPARIN NA (PORCINE) 60 MG/0.6 ML DISP.SYRIN SQ ONE (20:15)
[2018-07-21] MEDS ORDERED: ENOXAPARIN NA (PORCINE) 80 MG/0.8 ML DISP.SYRIN SQ ONE (20:16)
[2018-07-21] MEDS: ENOXAPARIN SQ SCH (20:20)
[2018-07-21] MEDS ORDERED: ACETAMINOPHEN 325 MG TABLET (FP) PO PRN (21:12)
[2018-07-21] MEDS ORDERED: HEPARIN NA (PORCINE) 5,000 UNITS/ML 1ML VIAL IVPUSH PRN ×2 (21:12)
[2018-07-21] MEDS ORDERED: LIDOCAINE PATCH REMOVAL MC SCH (22:00)
--- NOTE | 2018-07-21 22:21 | PN ---
Progress Note, Physician History of Present Illness: Pt still complains of lower back and b/l leg pains - Current Medication List Current Medications: Active Medications Atorvastatin Calcium (Lipitor -) 10 mg PO HS [facility] Budesonide/Formoterol Fumarate (Symbicort 160/4.5mcg -) 2 puff IH BID [facility] Calcium Carbonate/Cholecalciferol (Os-Ray 500+D -) 1 tab PO DAILY [facility] Cyclobenzaprine HCl (Flexeril -) 10 mg PO TID PRN PRN Reason: BACK PAIN Docusate Sodium (Colace -) 100 mg PO TID [facility] Enoxaparin Sodium 80 mg/ (Enoxaparin Sodium 50 mg) 130 mg SQ BID@0700,1900 [facility] Last Admin: 07/21/18 20:20 Dose: 130 mg Fenofibric Acid (Trilipix -) 135 mg PO DAILY [facility] Ceftriaxone Sodium 2 gm/ (Dextrose) 100 mls @ 200 mls/hr IVPB DAILY [facility] Insulin Aspart (Novolog Vial Sliding Scale -) 1 vial SQ ACHS [facility]; Protocol Insulin Detemir (Levemir Vial) 60 units SQ AM [facility] Insulin Detemir (Levemir Vial) 45 units SQ HS [facility] Lidocaine (Lidoderm Patch -) 1 patch TP DAILY [facility] Mirtazapine (Remeron -) 7.5 mg PO HS [facility] Miscellaneous (Lidoderm Patch Removal) 1 each MC DAILY@2200 [facility] Montelukast Sodium (Singulair -) 10 mg PO HS [facility] Oxycodone HCl (Roxicodone -) 10 mg PO Q12H PRN PRN Reason: PAIN LEVEL 6-10 Last Admin: 07/21/18 17:16 Dose: 10 mg Pantoprazole Sodium (Protonix -) 40 mg PO DAILY [facility] Tiotropium [place] (Spiriva Respimat) 2 puff IH DAILY [facility] - Objective Vital Signs: Vital Signs Temperature 100.7 F H 07/21/18 18:00 Pulse Rate 92 H 07/21/18 18:00 Respiratory Rate 15 07/21/18 18:00 Blood Pressure 128/94 07/21/18 18:00 O2 Sat by Pulse Oximetry (%) 95 07/21/18 07:33 Cardiovascular: Yes: WNL, Regular Rate and Rhythm Respiratory: Yes: Diminished Gastrointestinal: Yes: WNL, Normal Bowel Sounds, Soft Edema: LLE: Trace, RLE: Trace Labs: CBC, BMP 07/21/18 09:40 07/21/18 05:30 INR, PTT INR 1.44 (0.83-1.09) H 07/21/18 05:30 Fibrinogen 415.0 mg/dL (238-498) D 07/18/18 05:30 Problem List - Problems (1) DVT of lower extremity, bilateral Assessment/Plan: IV heparin was now dc'ed and pt started on Lovenox DVT extending from IVC filter to inf vena cava/common iliac/external iliac B/L Monitor for bleeding H/O IVC filter Code(s): I82.403 - ACUTE EMBOLISM AND THOMBOS UNSP DEEP VEINS OF LOW EXTRM, BI (2) Hematoma Assessment/Plan: CT scan abd showed: No change in pelvic hematomas and multiple thrombosis's Monitor for bleeding Code(s): T14.8XXA - OTHER INJURY OF UNSPECIFIED BODY REGION, INITIAL ENCOUNTER (3) UTI (urinary tract infection) Assessment/Plan: Await Urine culture Cont IV ceftriaxone Code(s): N39.0 - URINARY TRACT INFECTION, SITE NOT SPECIFIED (4) Back pain Assessment/Plan: Chronic back pain Will need PT and enocurage OOB to chair Cont lidocaine/oxycodone/flexeril Code(s): M54.9 - DORSALGIA, UNSPECIFIED Qualifiers: Back pain location: low back pain Chronicity: unspecified Back pain laterality: right Sciatica presence: unspecified whether sciatica present Qualified Code(s): M54.5 - Low back pain (5) Diabetes Assessment/Plan: Cont sliding scale w/ coverage/levemir Code(s): E11.9 - TYPE 2 DIABETES MELLITUS WITHOUT COMPLICATIONS (6) HLD (hyperlipidemia) Assessment/Plan: Cont lipitor/fenofibrate Code(s): E78.5 - HYPERLIPIDEMIA, UNSPECIFIED (7) Neuropathy due to type 2 diabetes mellitus Code(s): E11.40 - TYPE 2 DIABETES MELLITUS WITH DIABETIC NEUROPATHY, UNSP (8) Obesity (BMI 30-39.9) Code(s): E66.9 - OBESITY, UNSPECIFIED (9) ARF (acute renal failure) Assessment/Plan: Creatinine/Bun improved and now normal Code(s): N17.9 - ACUTE KIDNEY FAILURE, UNSPECIFIED (10) Asthma Assessment/Plan: Cont spireva/symbicort Code(s): J45.909 - UNSPECIFIED ASTHMA, UNCOMPLICATED (11) Anemia Assessment/Plan: Acute blood loss anemia Monitor H/H Code(s): D64.9 - ANEMIA, UNSPECIFIED
[2018-07-21] MEDS: ATORVASTATIN CA 10 MG TABLET (FP) PO SCH (23:06)
[2018-07-21] MEDS: LIDOCAINE PATCH REMOVAL MC SCH (23:06)
[2018-07-21] MEDS: MIRTAZAPINE 15 MG TABLET (FP) PO SCH (23:07)
[2018-07-21] MEDS: MONTELUKAST NA 10 MG TABLET PO SCH (23:07)
[2018-07-22] MEDS: oxyCODONE HCL 5 MG TABLET PO PRN ×3 (02:49→18:01)
[2018-07-22] MEDS: CYCLOBENZAPRINE HCL 10 MG TABLET (FP) PO PRN ×3 (03:25→21:40)
[2018-07-22] MEDS: DOCUSATE SODIUM 100 MG CAPSULE (FP) PO SCH ×3 (06:21→21:40)
[2018-07-22] MEDS: ENOXAPARIN SQ SCH ×3 (06:23→18:08)
[2018-07-22] MEDS ORDERED: ENOXAPARIN NA (PORCINE) 80 MG/0.8 ML DISP.SYRIN SQ ONE ×2 (06:44→17:55)
[2018-07-22] MEDS ORDERED: ENOXAPARIN NA (PORCINE) 60 MG/0.6 ML DISP.SYRIN SQ ONE ×2 (06:44→17:55)
[2018-07-22] MEDS: INSULIN SLIDING SCALE (NOVOLOG) 1 VIAL SQ SCH ×4 (06:53→21:39)
[2018-07-22] MEDS: INSULIN (LEVEMIR) 100 UNITS/ML UNITS SQ SCH ×3 (06:56→21:39)
[2018-07-22] MEDS ORDERED: PT OWN MED DRAWER 7, Y5N ONE ×2 (09:53→17:46)
[2018-07-22] MEDS ORDERED: DEXTROSE 5%-WATER 100 ML IVPB ONE (09:54)
[2018-07-22] MEDS ORDERED: CEFTRIAXONE 2 GM in DEXTROSE 5%-WATER 100 ML IVPB SCH (10:00)
[2018-07-22] MEDS: LIDOCAINE 5% TOPICAL PATCH TP SCH (10:18)
[2018-07-22] MEDS: PANTOPRAZOLE 40 MG TABLET (FP) PO SCH (10:19)
[2018-07-22] MEDS: CALCIUM 500MG/VIT-D 200 UNITS COMBO TABLET (FP) PO SCH (10:19)
[2018-07-22] MEDS: BUDESONIDE/FORMETEROL FUMARATE 160/4.5 mcg INHALER IH SCH ×2 (10:19→21:42)
[2018-07-22] MEDS: TIOTROPIUM BROMIDE 2.5 MCG (SPIRIVA) RESPIMAT INHALER IH SCH (10:20)
[2018-07-22] MEDS: FENOFIBRIC ACID 135 MG CAP PO SCH (10:20)
[2018-07-22] MEDS ORDERED: INSULIN (LEVEMIR) 100 UNITS/ML UNITS SQ ONE (11:55)
--- NOTE | 2018-07-22 13:36 | PN ---
Progress Note, Physician History of Present Illness: PULMONARY ALERT,LESS DYSPNEIC - Current Medication List Current Medications: Active Medications Atorvastatin Calcium (Lipitor -) 10 mg PO HS [facility] Last Admin: 07/21/18 23:06 Dose: 10 mg Budesonide/Formoterol Fumarate (Symbicort 160/4.5mcg -) 2 puff IH BID [facility] Last Admin: 07/22/18 10:19 Dose: 2 puff Calcium Carbonate/Cholecalciferol (Os-Ray 500+D -) 1 tab PO DAILY [facility] Last Admin: 07/22/18 10:19 Dose: 1 tab Cyclobenzaprine HCl (Flexeril -) 10 mg PO TID PRN PRN Reason: BACK PAIN Last Admin: 07/22/18 03:25 Dose: 10 mg Docusate Sodium (Colace -) 100 mg PO TID [facility] Last Admin: 07/22/18 06:21 Dose: Not Given Enoxaparin Sodium 80 mg/ (Enoxaparin Sodium 50 mg) 130 mg SQ BID@0700,1900 [facility] Last Admin: 07/22/18 06:57 Dose: 130 mg Fenofibric Acid (Trilipix -) 135 mg PO DAILY [facility] Last Admin: 07/22/18 10:20 Dose: 135 mg Ceftriaxone Sodium 2 gm/ (Dextrose) 100 mls @ 200 mls/hr IVPB DAILY [facility] Last Admin: 07/22/18 10:17 Dose: 200 mls/hr Insulin Aspart (Novolog Vial Sliding Scale -) 1 vial SQ ACHS [facility]; Protocol Last Admin: 07/22/18 11:37 Dose: Not Given Insulin Detemir (Levemir Vial) 60 units SQ AM [facility] Last Admin: 07/22/18 10:18 Dose: 60 unit Insulin Detemir (Levemir Vial) 45 units SQ HS [facility] Last Admin: 07/21/18 23:06 Dose: 45 units Lidocaine (Lidoderm Patch -) 1 patch TP DAILY [facility] Last Admin: 07/22/18 10:18 Dose: 1 patch Mirtazapine (Remeron -) 7.5 mg PO HS [facility] Last Admin: 07/21/18 23:07 Dose: 7.5 mg Miscellaneous (Lidoderm Patch Removal) 1 each MC DAILY@2200 [facility] Last Admin: 07/21/18 23:06 Dose: Not Given Montelukast Sodium (Singulair -) 10 mg PO HS [facility] Last Admin: 07/21/18 23:07 Dose: 10 mg Oxycodone HCl (Roxicodone -) 10 mg PO Q8H PRN PRN Reason: PAIN LEVEL 6-10 Last Admin: 07/22/18 10:16 Dose: 10 mg Pantoprazole Sodium (Protonix -) 40 mg PO DAILY [facility] Last Admin: 07/22/18 10:19 Dose: 40 mg Tiotropium [place] (Spiriva Respimat) 2 puff IH DAILY [facility] Last Admin: 07/22/18 10:20 Dose: 2 puff - Objective Vital Signs: Vital Signs Temperature 97.9 F 07/22/18 08:46 Pulse Rate 78 07/22/18 08:46 Respiratory Rate 18 07/22/18 08:46 Blood Pressure 137/78 07/22/18 08:46 O2 Sat by Pulse Oximetry (%) 95 07/22/18 08:46 Constitutional: Yes: Well Nourished, Calm Eyes: Yes: WNL HENT: Yes: WNL Neck: Yes: WNL Cardiovascular: Yes: Regular Rate and Rhythm, S1, S2 Respiratory: Yes: CTA Bilaterally Gastrointestinal: Yes: Normal Bowel Sounds, Soft Extremities: Yes: WNL Edema: Yes Labs: CBC, BMP 07/21/18 09:40 07/21/18 05:30 INR, PTT INR 1.44 (0.83-1.09) H 07/21/18 05:30 Fibrinogen 415.0 mg/dL (238-498) D 07/18/18 05:30 Problem List - Problems (1) Anemia Code(s): D64.9 - ANEMIA, UNSPECIFIED (2) Asthma Code(s): J45.909 - UNSPECIFIED ASTHMA, UNCOMPLICATED (3) DVT of lower extremity, bilateral Code(s): I82.403 - ACUTE EMBOLISM AND THOMBOS UNSP DEEP VEINS OF LOW EXTRM, BI (4) Hematoma Code(s): T14.8XXA - OTHER INJURY OF UNSPECIFIED BODY REGION, INITIAL ENCOUNTER (5) Chronic pain Code(s): G89.29 - OTHER CHRONIC PAIN (6) GERD (gastroesophageal reflux disease) Code(s): K21.9 - GASTRO-ESOPHAGEAL REFLUX DISEASE WITHOUT ESOPHAGITIS Qualifiers: Esophagitis presence: without esophagitis Qualified Code(s): K21.9 - Gastro -esophageal reflux disease without esophagitis (7) HLD (hyperlipidemia) Code(s): E78.5 - HYPERLIPIDEMIA, UNSPECIFIED (8) HTN (hypertension) Code(s): I10 - ESSENTIAL (PRIMARY) HYPERTENSION (9) DVT (deep venous thrombosis) Code(s): I82.409 - ACUTE EMBOLISM AND THOMBOS UNSP DEEP VN UNSP LOWER EXTREMITY Qualifiers: DVT location: lower extremity Chronicity: unspecified Laterality: right Assessment/Plan ASSESSMENT AND PLAN: r/o Pelvic Hematoma Acute Blood Loss Anemia Acute Bilateral Extensive DVTs h/o IVC filter Acute Kidney Injury Asthma Anemia Thrombocytopenia - monitor H/H - transfuse as needed - continue anticoagulation - pulse checks - IVF - monitor urine output, creatinine - O2 to keep SpO2 >90% - inhaled bronchodilators as needed DR HOPSON
--- NOTE | 2018-07-22 15:16 | PN ---
Progress Note, Physician History of Present Illness: stable better still with pain - Current Medication List Current Medications: Active Medications Atorvastatin Calcium (Lipitor -) 10 mg PO HS [facility] Last Admin: 07/21/18 23:06 Dose: 10 mg Budesonide/Formoterol Fumarate (Symbicort 160/4.5mcg -) 2 puff IH BID [facility] Last Admin: 07/22/18 10:19 Dose: 2 puff Calcium Carbonate/Cholecalciferol (Os-Ray 500+D -) 1 tab PO DAILY [facility] Last Admin: 07/22/18 10:19 Dose: 1 tab Cyclobenzaprine HCl (Flexeril -) 10 mg PO TID PRN PRN Reason: BACK PAIN Last Admin: 07/22/18 13:50 Dose: 10 mg Docusate Sodium (Colace -) 100 mg PO TID [facility] Last Admin: 07/22/18 13:50 Dose: 100 mg Enoxaparin Sodium 80 mg/ (Enoxaparin Sodium 50 mg) 130 mg SQ BID@0700,1900 [facility] Last Admin: 07/22/18 06:57 Dose: 130 mg Fenofibric Acid (Trilipix -) 135 mg PO DAILY [facility] Last Admin: 07/22/18 10:20 Dose: 135 mg Insulin Aspart (Novolog Vial Sliding Scale -) 1 vial SQ [facility]; Protocol Last Admin: 07/22/18 11:37 Dose: Not Given Insulin Detemir (Levemir Vial) 60 units SQ AM [facility] Last Admin: 07/22/18 10:18 Dose: 60 unit Insulin Detemir (Levemir Vial) 45 units SQ HS [facility] Last Admin: 07/21/18 23:06 Dose: 45 units Lidocaine (Lidoderm Patch -) 1 patch TP DAILY [facility] Last Admin: 07/22/18 10:18 Dose: 1 patch Mirtazapine (Remeron -) 7.5 mg PO HS [facility] Last Admin: 07/21/18 23:07 Dose: 7.5 mg Miscellaneous (Lidoderm Patch Removal) 1 each MC DAILY@2200 [facility] Last Admin: 07/21/18 23:06 Dose: Not Given Montelukast Sodium (Singulair -) 10 mg PO [facility] Last Admin: 07/21/18 23:07 Dose: 10 mg Oxycodone HCl (Roxicodone -) 10 mg PO Q8H PRN PRN Reason: PAIN LEVEL 6-10 Last Admin: 07/22/18 10:16 Dose: 10 mg Pantoprazole Sodium (Protonix -) 40 mg PO DAILY [facility] Last Admin: 07/22/18 10:19 Dose: 40 mg Tiotropium [place] (Spiriva Respimat) 2 puff IH DAILY [facility] Last Admin: 07/22/18 10:20 Dose: 2 puff - Objective Vital Signs: Vital Signs Temperature 100.4 F H 07/22/18 14:00 Pulse Rate 103 H 07/22/18 14:00 Respiratory Rate 18 07/22/18 14:00 Blood Pressure 145/76 07/22/18 14:00 O2 Sat by Pulse Oximetry (%) 95 07/22/18 08:46 Constitutional: Yes: Calm, Mild Distress Cardiovascular: Yes: Regular Rate and Rhythm Respiratory: Yes: Regular, CTA Bilaterally Gastrointestinal: Yes: Normal Bowel Sounds, Soft Musculoskeletal: Yes: WNL Extremities: Yes: Erythema, Other Neurological: Yes: Alert, Oriented Psychiatric: Yes: Alert, Oriented Labs: CBC, BMP 07/21/18 09:40 07/21/18 05:30 INR, PTT INR 1.44 (0.83-1.09) H 07/21/18 05:30 Fibrinogen 415.0 mg/dL (238-498) D 07/18/18 05:30 Assessment/Plan Problem List - Problems (1) DVT of lower extremity, bilateral Code(s): I82.403 - ACUTE EMBOLISM AND THOMBOS UNSP DEEP VEINS OF LOW EXTRM, BI (2) Back pain Code(s): M54.9 - DORSALGIA, UNSPECIFIED Qualifiers: Back pain location: low back pain Chronicity: unspecified Back pain laterality: right Sciatica presence: unspecified whether sciatica present Qualified Code(s): M54.5 - Low back pain (3) Hyperglycemia Code(s): R73.9 - HYPERGLYCEMIA, UNSPECIFIED (4) Injury of right foot Code(s): S99.921A - UNSPECIFIED INJURY OF RIGHT FOOT, INITIAL ENCOUNTER Qualifiers: Encounter type: initial encounter Qualified Code(s): S99.921A - Unspecified injury of right foot, initial encounter (5) URI (upper respiratory infection) Code(s): J06.9 - ACUTE UPPER RESPIRATORY INFECTION, UNSPECIFIED 6 uti patients urine has esbl plan i am going to switch her to meropenam rest continue current mgmt
[2018-07-22 15:37] LABS: HEMATOCRIT 23.9 % (32.4-45.2); HEMOGLOBIN 8.1 GM/dL (10.7-15.3); MCH 30.7 pg (25.7-33.7); MCHC 33.9 g/dl (32.0-36.0); MEAN CELL VOLUME 90.5 fl (80-96); MEAN PLT VOLUME 9.7 fl (7.5-11.1); PLATELET COUNT 205 K/MM3 (134-434); RBC 2.64 M/mm3 (3.60-5.2); RDW 15.2 % (11.6-15.6); WHITE BLOOD COUNT 10.1 K/mm3 (4.0-10.0)
[2018-07-22] MEDS: ACETAMINOPHEN 325 MG TABLET (FP) PO PRN (15:57)
[2018-07-22 16:12] LABS: ALBUMIN 2.8 g/dl (3.4-5.0); ALK PHOS 92 U/L (45-117); ANION GAP 8 MMOL/L (8-16); BILIRUBIN,TOTAL 0.5 mg/dL (0.2-1); BLOOD UREA NITROGEN 14 mg/dL (7-18); CALCIUM 8.9 mg/dL (8.5-10.1); CHLORIDE 100 mmol/L (98-107); CO2 29 mmol/L (21-32); CREATININE 0.9 mg/dL (0.55-1.3); GLUCOSE,RANDOM 158 mg/dL (74-106); POTASSIUM 4.2 mmol/L (3.5-5.1); SGOT/AST 17 U/L (15-37); SGPT/ALT 17 U/L (13-61); SODIUM 136 mmol/L (136-145); TOT PROT 6.9 g/dl (6.4-8.2)
--- NOTE | 2018-07-22 16:15 | PN ---
Physical Exam: HEME ONC PROGRESS NOTE SUBJECTIVE: Patient seen and examined at bedside. Denies any current complaints. No change in swelling in her legs. No shortness of breath. OBJECTIVE: Vital Signs Period Temp Pulse Resp BP Sys/Gunter Pulse Ox Last 24 Hr 97.9 F-100.7 F 78-103 15-18 128-145/70-94 95-95 GENERAL: A&Ox3, no acute distress EYES: PERRLA, EOMI ENT: Moist mucus membranes NECK: No JVD LUNGS: CTA, no wheezes HEART: mildly tachycardic, no murmurs ABDOMEN: Obese, soft and nontender EXTREMITIES: 2+ pulses, 2+ edema noted on b/l lower extremities, extremities well perfused and warm NEUROLOGICAL: Cranial nerves II-XII intact. Laboratory Results - last 24 hr 07/21/18 07/21/18 07/21/18 15:40 16:46 22:54 WBC RBC Hgb Hct MCV MCH MCHC RDW Plt Count MPV PTT (Actin FS) 70.6 H Sodium Potassium Chloride Carbon Dioxide Anion Gap BUN Creatinine Creat Clearance w eGFR POC Glucometer 154 130 Random Glucose Calcium Total Bilirubin AST ALT Alkaline Phosphatase Total Protein Albumin 07/22/18 07/22/18 07/22/18 06:52 11:36 15:00 WBC 10.1 H RBC 2.64 L Hgb 8.1 L Hct 23.9 L MCV 90.5 MCH 30.7 MCHC 33.9 RDW 15.2 Plt Count 205 D MPV 9.7 PTT (Actin FS) Sodium Potassium Chloride Carbon Dioxide Anion Gap BUN Creatinine Creat Clearance w eGFR POC Glucometer 120 142 Random Glucose Calcium Total Bilirubin AST ALT Alkaline Phosphatase Total Protein Albumin 07/22/18 07/22/18 07/22/18 15:00 15:00 16:00 WBC RBC Hgb Hct MCV MCH MCHC RDW Plt Count MPV PTT (Actin FS) 36.2 Sodium 136 Potassium 4.2 Chloride 100 Carbon Dioxide 29 Anion Gap 8 BUN 14 Creatinine 0.9 Creat Clearance w eGFR 64.09 POC Glucometer 150 Random Glucose 158 H Calcium 8.9 Total Bilirubin 0.5 AST 17 ALT 17 Alkaline Phosphatase 92 Total Protein 6.9 Albumin 2.8 L Active Medications Generic Name Dose Route Start Last Admin Trade Name Freq PRN Reason Stop Dose Admin Acetaminophen 650 mg 07/22/18 15:49 07/22/18 15:57 Tylenol - PO 650 mg Q4H PRN Administration FEVER Atorvastatin Calcium 10 mg 07/21/18 22:00 07/21/18 23:06 Lipitor - PO 10 mg HS [facility] Administration Budesonide/Formoterol Fumarate 2 puff 07/21/18 22:00 07/22/18 10:19 Symbicort 160/4.5mcg - IH 2 puff BID [facility] Administration Calcium Carbonate/Cholecalciferol 1 tab 07/22/18 10:00 07/22/18 10:19 Os-Ray 500+D - PO 1 tab DAILY [facility] Administration Cyclobenzaprine HCl 10 mg 07/21/18 21:12 07/22/18 13:50 Flexeril - PO 10 mg TID PRN Administration BACK PAIN Docusate Sodium 100 mg 07/21/18 22:00 07/22/18 13:50 Colace - PO 100 mg TID [facility] Administration Enoxaparin Sodium 80 mg/ 130 mg 07/21/18 19:00 07/22/18 06:57 Enoxaparin Sodium 50 mg SQ 130 mg BID@0700,1900 [facility] Administration Fenofibric Acid 135 mg 07/22/18 10:00 07/22/18 10:20 Trilipix - PO 135 mg DAILY [facility] Administration Meropenem 1 gm/ Dextrose 100 mls @ 200 mls/hr 07/22/18 18:00 IVPB Q8H-IV [facility] Insulin Aspart 1 vial 07/21/18 22:00 07/22/18 16:02 Novolog Vial Sliding Scale - SQ Not Given ACHS [facility] Protocol Insulin Detemir 60 units 07/22/18 07:00 07/22/18 10:18 Levemir Vial SQ 60 unit AM [facility] Administration Insulin Detemir 45 units 07/21/18 22:00 07/21/18 23:06 Levemir Vial SQ 45 units HS [facility] Administration Lidocaine 1 patch 07/22/18 10:00 07/22/18 10:18 Lidoderm Patch - TP 1 patch DAILY [facility] Administration Mirtazapine 7.5 mg 07/21/18 22:00 07/21/18 23:07 Remeron - PO 7.5 mg HS [facility] Administration Miscellaneous 1 each 07/21/18 22:00 07/21/18 23:06 Lidoderm Patch Removal MC Not Given DAILY@2200 [facility] Montelukast Sodium 10 mg 07/21/18 22:00 07/21/18 23:07 Singulair - PO 10 mg HS [facility] Administration Oxycodone HCl 10 mg 07/22/18 02:46 07/22/18 10:16 Roxicodone - PO 10 mg Q8H PRN Administration PAIN LEVEL 6-10 Pantoprazole Sodium 40 mg 07/22/18 10:00 07/22/18 10:19 Protonix - PO 40 mg DAILY [facility] Administration Tiotropium [place] 2 puff 07/22/18 10:00 07/22/18 10:20 Spiriva Respimat IH 2 puff DAILY [facility] Administration ASSESSMENT/PLAN: DRAFT 57 year old female hx of back pain, unprovoked DVTs/PEs since 2014 s/p IVC filter treated with lovenox until 3 months ago, when discontinued due to frequent falling Bilateral Deep Vein Thrombosis: appears to be stable now, on lovenox -monitor for critical limb ischemia with checks for extremity warmth and pulses , pulses were dopplered today and were fine -if legs become ischemic, will need IR intervention to remove clot burden -coagulopathy workup was negative in past -f/u serotinin release assay Pelvic Hematoma: appears stable and not increasing on new abd/pelvis CT, could be due to ? vasculitis -can continue anticoagulation PILO resolved UTI w/ ESBL/Proteus: continue abx per primary/ID Back pain: continue pain management per primary team Alex Silver, PGY2 Discussed w/ Dr. Nagel Visit type - Emergency Visit Emergency Visit: No - New Patient This patient is new to me today: No - Critical Care Critical Care patient: No
[2018-07-22 17:03] VITALS: BMI 45.2
--- NOTE | 2018-07-22 17:19 | PN ---
Teaching Attending Note Name of Resident: Alex Silver ATTENDING PHYSICIAN STATEMENT I saw and evaluated the patient. I reviewed the resident's note and discussed the case with the resident. I agree with the resident's findings and plan as documented. SUBJECTIVE: Patient seen and examined Complains of LE pains No significant chest pains or SOB Last Vital Signs Temp Pulse Resp BP Pulse Ox 100.4 F H 103 H 18 145/76 95 07/22/18 14:00 07/22/18 14:00 07/22/18 14:00 07/22/18 14:00 07/22/18 08:46 HEENT: [place], EOM Intact Oropharynx: No thrush, No mucositis Cor: RSR, No murmurs, No gallops Lungsdiminished breath sounds Abd: Soft, Normal bowel sounds, No organomegaly Ext:bilateral LE edema Skin: No rashes, Integument intact CBC, BMP 07/22/18 15:00 07/22/18 15:00 Current Medications Generic Name Dose Route Start Last Admin Trade Name Freq PRN Reason Stop Dose Admin Acetaminophen 650 mg 07/22/18 15:49 07/22/18 15:57 Tylenol - PO 650 mg Q4H PRN Administration FEVER Atorvastatin Calcium 10 mg 07/21/18 22:00 07/21/18 23:06 Lipitor - PO 10 mg HS [facility] Administration Budesonide/Formoterol Fumarate 2 puff 07/21/18 22:00 07/22/18 10:19 Symbicort 160/4.5mcg - IH 2 puff BID [facility] Administration Calcium Carbonate/Cholecalciferol 1 tab 07/22/18 10:00 07/22/18 10:19 Os-Ray 500+D - PO 1 tab DAILY [facility] Administration Cyclobenzaprine HCl 10 mg 07/21/18 21:12 07/22/18 13:50 Flexeril - PO 10 mg TID PRN Administration BACK PAIN Docusate Sodium 100 mg 07/21/18 22:00 07/22/18 13:50 Colace - PO 100 mg TID [facility] Administration Enoxaparin Sodium 80 mg/ 130 mg 07/21/18 19:00 07/22/18 06:57 Enoxaparin Sodium 50 mg SQ 130 mg BID@0700,1900 [facility] Administration Fenofibric Acid 135 mg 07/22/18 10:00 07/22/18 10:20 Trilipix - PO 135 mg DAILY [facility] Administration Meropenem 1 gm/ Dextrose 100 mls @ 200 mls/hr 07/22/18 18:00 IVPB Q8H-IV [facility] Insulin Aspart 1 vial 07/21/18 22:00 07/22/18 16:02 Novolog Vial Sliding Scale - SQ Not Given ACHS [facility] Protocol Insulin Detemir 60 units 07/22/18 07:00 07/22/18 10:18 Levemir Vial SQ 60 unit AM [facility] Administration Insulin Detemir 45 units 07/21/18 22:00 07/21/18 23:06 Levemir Vial SQ 45 units HS [facility] Administration Lidocaine 1 patch 07/22/18 10:00 07/22/18 10:18 Lidoderm Patch - TP 1 patch DAILY [facility] Administration Mirtazapine 7.5 mg 07/21/18 22:00 07/21/18 23:07 Remeron - PO 7.5 mg HS [facility] Administration Miscellaneous 1 each 07/21/18 22:00 07/21/18 23:06 Lidoderm Patch Removal MC Not Given DAILY@2200 [facility] Montelukast Sodium 10 mg 07/21/18 22:00 07/21/18 23:07 Singulair - PO 10 mg HS [facility] Administration Oxycodone HCl 10 mg 07/22/18 02:46 07/22/18 10:16 Roxicodone - PO 10 mg Q8H PRN Administration PAIN LEVEL 6-10 Pantoprazole Sodium 40 mg 07/22/18 10:00 07/22/18 10:19 Protonix - PO 40 mg DAILY [facility] Administration Tiotropium [place] 2 puff 07/22/18 10:00 07/22/18 10:20 Spiriva Respimat IH 2 puff DAILY [facility] Administration OBJECTIVE: Impression: Unprovoked DVT Pelvic hematoma Anemia Back pain Pain management UTI Continue lovenox Screening tests for anemia ASSESSMENT AND PLAN:
[2018-07-22] MEDS ORDERED: INSULIN SLIDING SCALE (NOVOLOG) 1 VIAL SQ ONE (17:52)
[2018-07-22] MEDS: MEROPENEM 1 GM in DEXTROSE 5%-WATER 100 ML IVPB SCH (18:01)
[2018-07-22] MEDS: LIDOCAINE PATCH REMOVAL MC SCH (21:40)
[2018-07-22] MEDS: MONTELUKAST NA 10 MG TABLET PO SCH (21:40)
[2018-07-22] MEDS: ATORVASTATIN CA 10 MG TABLET (FP) PO SCH (21:40)
[2018-07-22] MEDS: MIRTAZAPINE 15 MG TABLET (FP) PO SCH (21:41)
--- NOTE | 2018-07-22 23:40 | PN ---
Progress Note, Physician - Current Medication List Current Medications: Active Medications Acetaminophen (Tylenol -) 650 mg PO Q4H PRN PRN Reason: FEVER Last Admin: 07/22/18 15:57 Dose: 650 mg Atorvastatin Calcium (Lipitor -) 10 mg PO HS [facility] Last Admin: 07/22/18 21:40 Dose: 10 mg Budesonide/Formoterol Fumarate (Symbicort 160/4.5mcg -) 2 puff IH BID [facility] Last Admin: 07/22/18 21:42 Dose: 2 puff Calcium Carbonate/Cholecalciferol (Os-Ray 500+D -) 1 tab PO DAILY [facility] Last Admin: 07/22/18 10:19 Dose: 1 tab Cyclobenzaprine HCl (Flexeril -) 10 mg PO TID PRN PRN Reason: BACK PAIN Last Admin: 07/22/18 21:40 Dose: 10 mg Docusate Sodium (Colace -) 100 mg PO TID [facility] Last Admin: 07/22/18 21:40 Dose: 100 mg Enoxaparin Sodium 80 mg/ (Enoxaparin Sodium 50 mg) 130 mg SQ BID@0700,1900 [facility] Last Admin: 07/22/18 18:08 Dose: 130 mg Fenofibric Acid (Trilipix -) 135 mg PO DAILY [facility] Last Admin: 07/22/18 10:20 Dose: 135 mg Meropenem 1 gm/ Dextrose 100 mls @ 200 mls/hr IVPB Q8H-IV [facility] Last Admin: 07/22/18 18:01 Dose: 200 mls/hr Insulin Aspart (Novolog Vial Sliding Scale -) 1 vial SQ ACHS [facility]; Protocol Last Admin: 07/22/18 21:39 Dose: Not Given Insulin Detemir (Levemir Vial) 60 units SQ AM [facility] Last Admin: 07/22/18 10:18 Dose: 60 unit Insulin Detemir (Levemir Vial) 45 units SQ HS [facility] Last Admin: 07/22/18 21:39 Dose: Not Given Lidocaine (Lidoderm Patch -) 1 patch TP DAILY [facility] Last Admin: 07/22/18 10:18 Dose: 1 patch Mirtazapine (Remeron -) 7.5 mg PO HS [facility] Last Admin: 07/22/18 21:41 Dose: 7.5 mg Miscellaneous (Lidoderm Patch Removal) 1 each MC DAILY@2200 [facility] Last Admin: 07/22/18 21:40 Dose: 1 each Montelukast Sodium (Singulair -) 10 mg PO HS [facility] Last Admin: 07/22/18 21:40 Dose: 10 mg Oxycodone HCl (Roxicodone -) 10 mg PO Q8H PRN PRN Reason: PAIN LEVEL 6-10 Last Admin: 07/22/18 18:01 Dose: 10 mg Pantoprazole Sodium (Protonix -) 40 mg PO DAILY [facility] Last Admin: 07/22/18 10:19 Dose: 40 mg Tiotropium [place] (Spiriva Respimat) 2 puff IH DAILY [facility] Last Admin: 07/22/18 10:20 Dose: 2 puff - Objective Vital Signs: Vital Signs Temperature 99.3 F 07/22/18 16:40 Pulse Rate 103 H 07/22/18 16:40 Respiratory Rate 20 07/22/18 16:40 Blood Pressure 120/67 07/22/18 16:40 O2 Sat by Pulse Oximetry (%) 95 07/22/18 08:46 Labs: CBC, BMP 07/22/18 15:00 07/22/18 15:00 INR, PTT INR 1.44 (0.83-1.09) H 07/21/18 05:30 Fibrinogen 415.0 mg/dL (238-498) D 07/18/18 05:30 Problem List - Problems (1) DVT of lower extremity, bilateral Code(s): I82.403 - ACUTE EMBOLISM AND THOMBOS UNSP DEEP VEINS OF LOW EXTRM, BI (2) Hematoma Code(s): T14.8XXA - OTHER INJURY OF UNSPECIFIED BODY REGION, INITIAL ENCOUNTER (3) UTI (urinary tract infection) Code(s): N39.0 - URINARY TRACT INFECTION, SITE NOT SPECIFIED (4) Back pain Code(s): M54.9 - DORSALGIA, UNSPECIFIED Qualifiers: Back pain location: low back pain Chronicity: unspecified Back pain laterality: right Sciatica presence: unspecified whether sciatica present Qualified Code(s): M54.5 - Low back pain (5) Diabetes Code(s): E11.9 - TYPE 2 DIABETES MELLITUS WITHOUT COMPLICATIONS (6) HLD (hyperlipidemia) Code(s): E78.5 - HYPERLIPIDEMIA, UNSPECIFIED (7) Neuropathy due to type 2 diabetes mellitus Code(s): E11.40 - TYPE 2 DIABETES MELLITUS WITH DIABETIC NEUROPATHY, UNSP (8) Obesity (BMI 30-39.9) Code(s): E66.9 - OBESITY, UNSPECIFIED (9) ARF (acute renal failure) Code(s): N17.9 - ACUTE KIDNEY FAILURE, UNSPECIFIED (10) Asthma Code(s): J45.909 - UNSPECIFIED ASTHMA, UNCOMPLICATED (11) Anemia Code(s): D64.9 - ANEMIA, UNSPECIFIED
[2018-07-23] MEDS: ACETAMINOPHEN 325 MG TABLET (FP) PO PRN ×3 (00:27→17:12)
[2018-07-23] MEDS ORDERED: PT OWN MED DRAWER 7, Y5N ONE ×4 (01:03→17:09)
[2018-07-23] MEDS: MEROPENEM 1 GM in DEXTROSE 5%-WATER 100 ML IVPB SCH ×3 (01:05→17:12)
[2018-07-23] MEDS: oxyCODONE HCL 5 MG TABLET PO PRN ×3 (01:05→17:13)
[2018-07-23] MEDS ORDERED: ENOXAPARIN NA (PORCINE) 60 MG/0.6 ML DISP.SYRIN SQ ONE ×2 (06:01→18:12)
[2018-07-23] MEDS ORDERED: ENOXAPARIN NA (PORCINE) 80 MG/0.8 ML DISP.SYRIN SQ ONE ×3 (06:01→18:12)
[2018-07-23] MEDS: CYCLOBENZAPRINE HCL 10 MG TABLET (FP) PO PRN ×3 (06:04→21:36)
[2018-07-23] MEDS: DOCUSATE SODIUM 100 MG CAPSULE (FP) PO SCH ×3 (06:04→21:36)
[2018-07-23] MEDS: INSULIN (LEVEMIR) 100 UNITS/ML UNITS SQ SCH ×2 (06:11→21:37)
[2018-07-23] MEDS: ENOXAPARIN SQ SCH ×2 (06:11→18:31)
[2018-07-23] MEDS: INSULIN SLIDING SCALE (NOVOLOG) 1 VIAL SQ SCH ×4 (06:14→21:39)
[2018-07-23 06:20] LABS: HEMATOCRIT 24.7 % (32.4-45.2); HEMOGLOBIN 8.3 GM/dL (10.7-15.3); MCH 30.5 pg (25.7-33.7); MCHC 33.6 g/dl (32.0-36.0); MEAN CELL VOLUME 90.7 fl (80-96); MEAN PLT VOLUME 9.9 fl (7.5-11.1); PLATELET COUNT 212 K/MM3 (134-434); RBC 2.73 M/mm3 (3.60-5.2); RDW 15.4 % (11.6-15.6)
[2018-07-23 10:15] LABS: HEMATOCRIT 24.2 % (32.4-45.2); MCH 29.9 pg (25.7-33.7); MEAN CELL VOLUME 90.8 fl (80-96); MEAN PLT VOLUME 9.6 fl (7.5-11.1); PLATELET COUNT 224 K/MM3 (134-434); RBC 2.66 M/mm3 (3.60-5.2); RDW 15.1 % (11.6-15.6); WHITE BLOOD COUNT 10.2 K/mm3 (4.0-10.0)
[2018-07-23] MEDS: CALCIUM 500MG/VIT-D 200 UNITS COMBO TABLET (FP) PO SCH (10:38)
[2018-07-23] MEDS: PANTOPRAZOLE 40 MG TABLET (FP) PO SCH (10:38)
[2018-07-23] MEDS: LIDOCAINE 5% TOPICAL PATCH TP SCH (10:40)
[2018-07-23] MEDS: BUDESONIDE/FORMETEROL FUMARATE 160/4.5 mcg INHALER IH SCH ×2 (10:53→21:39)
[2018-07-23] MEDS: TIOTROPIUM BROMIDE 2.5 MCG (SPIRIVA) RESPIMAT INHALER IH SCH (10:53)
[2018-07-23] MEDS: FENOFIBRIC ACID 135 MG CAP PO SCH (10:54)
--- NOTE | 2018-07-23 14:31 | PN ---
Progress Note, Physician History of Present Illness: stable no new issues - Current Medication List Current Medications: Active Medications Acetaminophen (Tylenol -) 650 mg PO Q4H PRN PRN Reason: FEVER Last Admin: 07/23/18 06:04 Dose: 650 mg Atorvastatin Calcium (Lipitor -) 10 mg PO HS [facility] Last Admin: 07/22/18 21:40 Dose: 10 mg Budesonide/Formoterol Fumarate (Symbicort 160/4.5mcg -) 2 puff IH BID [facility] Last Admin: 07/23/18 10:53 Dose: 2 puff Calcium Carbonate/Cholecalciferol (Os-Ray 500+D -) 1 tab PO DAILY [facility] Last Admin: 07/23/18 10:38 Dose: 1 tab Cyclobenzaprine HCl (Flexeril -) 10 mg PO TID PRN PRN Reason: BACK PAIN Last Admin: 07/23/18 06:04 Dose: 10 mg Docusate Sodium (Colace -) 100 mg PO TID [facility] Last Admin: 07/23/18 06:04 Dose: 100 mg Enoxaparin Sodium 80 mg/ (Enoxaparin Sodium 50 mg) 130 mg SQ BID@0700,1900 [facility] Last Admin: 07/23/18 06:11 Dose: 130 mg Fenofibric Acid (Trilipix -) 135 mg PO DAILY [facility] Last Admin: 07/23/18 10:54 Dose: 135 mg Meropenem 1 gm/ Dextrose 100 mls @ 200 mls/hr IVPB Q8H-IV [facility] Last Admin: 07/23/18 10:38 Dose: 200 mls/hr Insulin Aspart (Novolog Vial Sliding Scale -) 1 vial SQ ACHS [facility]; Protocol Last Admin: 07/23/18 11:40 Dose: Not Given Insulin Detemir (Levemir Vial) 60 units SQ AM [facility] Last Admin: 07/23/18 06:11 Dose: 60 unit Insulin Detemir (Levemir Vial) 45 units SQ HS [facility] Last Admin: 07/22/18 21:39 Dose: Not Given Lidocaine (Lidoderm Patch -) 1 patch TP DAILY [facility] Last Admin: 07/23/18 10:40 Dose: 1 patch Mirtazapine (Remeron -) 7.5 mg PO HS [facility] Last Admin: 07/22/18 21:41 Dose: 7.5 mg Miscellaneous (Lidoderm Patch Removal) 1 each MC DAILY@2200 [facility] Last Admin: 07/22/18 21:40 Dose: 1 each Montelukast Sodium (Singulair -) 10 mg PO HS [facility] Last Admin: 07/22/18 21:40 Dose: 10 mg Oxycodone HCl (Roxicodone -) 10 mg PO Q6H PRN PRN Reason: PAIN LEVEL 6-10 Last Admin: 07/23/18 10:38 Dose: 10 mg Pantoprazole Sodium (Protonix -) 40 mg PO DAILY [facility] Last Admin: 07/23/18 10:38 Dose: 40 mg Tiotropium [place] (Spiriva Respimat) 2 puff IH DAILY [facility] Last Admin: 07/23/18 10:53 Dose: 2 puff - Objective Vital Signs: Vital Signs Temperature 99 F 07/23/18 14:24 Pulse Rate 95 H 07/23/18 14:24 Respiratory Rate 18 07/23/18 14:24 Blood Pressure 129/80 07/23/18 14:24 O2 Sat by Pulse Oximetry (%) 96 07/22/18 21:00 Constitutional: Yes: No Distress, Calm Cardiovascular: Yes: Regular Rate and Rhythm Respiratory: Yes: Regular, CTA Bilaterally Gastrointestinal: Yes: Normal Bowel Sounds, Soft Musculoskeletal: Yes: Other Extremities: Yes: Other (swelling) Neurological: Yes: Alert, Oriented Psychiatric: Yes: Alert, Oriented Labs: CBC, BMP 07/23/18 09:45 07/22/18 15:00 INR, PTT INR 1.44 (0.83-1.09) H 07/21/18 05:30 Fibrinogen 415.0 mg/dL (238-498) D 07/18/18 05:30 Assessment/Plan Problem List - Problems (1) DVT of lower extremity, bilateral Code(s): I82.403 - ACUTE EMBOLISM AND THOMBOS UNSP DEEP VEINS OF LOW EXTRM, BI (2) Back pain Code(s): M54.9 - DORSALGIA, UNSPECIFIED Qualifiers: Back pain location: low back pain Chronicity: unspecified Back pain laterality: right Sciatica presence: unspecified whether sciatica present Qualified Code(s): M54.5 - Low back pain (3) Hyperglycemia Code(s): R73.9 - HYPERGLYCEMIA, UNSPECIFIED (4) Injury of right foot Code(s): S99.921A - UNSPECIFIED INJURY OF RIGHT FOOT, INITIAL ENCOUNTER Qualifiers: Encounter type: initial encounter Qualified Code(s): S99.921A - Unspecified injury of right foot, initial encounter (5) URI (upper respiratory infection) Code(s): J06.9 - ACUTE UPPER RESPIRATORY INFECTION, UNSPECIFIED 6 uti patients urine has esbl plan all the numbers noted will stop abx tomorrow rest as per the team
--- NOTE | 2018-07-23 14:59 | PN ---
Progress Note, Physician History of Present Illness: pulmonary alert,+dyspnea with exertion - Current Medication List Current Medications: Active Medications Acetaminophen (Tylenol -) 650 mg PO Q4H PRN PRN Reason: FEVER Last Admin: 07/23/18 06:04 Dose: 650 mg Atorvastatin Calcium (Lipitor -) 10 mg PO HS [facility] Last Admin: 07/22/18 21:40 Dose: 10 mg Budesonide/Formoterol Fumarate (Symbicort 160/4.5mcg -) 2 puff IH BID [facility] Last Admin: 07/23/18 10:53 Dose: 2 puff Calcium Carbonate/Cholecalciferol (Os-Ray 500+D -) 1 tab PO DAILY [facility] Last Admin: 07/23/18 10:38 Dose: 1 tab Cyclobenzaprine HCl (Flexeril -) 10 mg PO TID PRN PRN Reason: BACK PAIN Last Admin: 07/23/18 14:31 Dose: 10 mg Docusate Sodium (Colace -) 100 mg PO TID [facility] Last Admin: 07/23/18 14:32 Dose: 100 mg Enoxaparin Sodium 80 mg/ (Enoxaparin Sodium 50 mg) 130 mg SQ BID@0700,1900 [facility] Last Admin: 07/23/18 06:11 Dose: 130 mg Fenofibric Acid (Trilipix -) 135 mg PO DAILY [facility] Last Admin: 07/23/18 10:54 Dose: 135 mg Meropenem 1 gm/ Dextrose 100 mls @ 200 mls/hr IVPB Q8H-IV [facility] Last Admin: 07/23/18 10:38 Dose: 200 mls/hr Insulin Aspart (Novolog Vial Sliding Scale -) 1 vial SQ ACHS [facility]; Protocol Last Admin: 07/23/18 11:40 Dose: Not Given Insulin Detemir (Levemir Vial) 60 units SQ AM [facility] Last Admin: 07/23/18 06:11 Dose: 60 unit Insulin Detemir (Levemir Vial) 45 units SQ HS [facility] Last Admin: 07/22/18 21:39 Dose: Not Given Lidocaine (Lidoderm Patch -) 1 patch TP DAILY [facility] Last Admin: 07/23/18 10:40 Dose: 1 patch Mirtazapine (Remeron -) 7.5 mg PO HS [facility] Last Admin: 07/22/18 21:41 Dose: 7.5 mg Miscellaneous (Lidoderm Patch Removal) 1 each MC DAILY@2200 [facility] Last Admin: 07/22/18 21:40 Dose: 1 each Montelukast Sodium (Singulair -) 10 mg PO HS [facility] Last Admin: 07/22/18 21:40 Dose: 10 mg Oxycodone HCl (Roxicodone -) 10 mg PO Q6H PRN PRN Reason: PAIN LEVEL 6-10 Last Admin: 07/23/18 10:38 Dose: 10 mg Pantoprazole Sodium (Protonix -) 40 mg PO DAILY [facility] Last Admin: 07/23/18 10:38 Dose: 40 mg Tiotropium [place] (Spiriva Respimat) 2 puff IH DAILY [facility] Last Admin: 07/23/18 10:53 Dose: 2 puff - Objective Vital Signs: Vital Signs Temperature 99 F 07/23/18 14:24 Pulse Rate 95 H 07/23/18 14:24 Respiratory Rate 18 07/23/18 14:24 Blood Pressure 129/80 07/23/18 14:24 O2 Sat by Pulse Oximetry (%) 96 07/22/18 21:00 Constitutional: Yes: Calm, Obese Eyes: Yes: WNL HENT: Yes: WNL Neck: Yes: WNL Cardiovascular: Yes: Regular Rate and Rhythm, S1, S2 Respiratory: Yes: Diminished Gastrointestinal: Yes: Normal Bowel Sounds, Soft Edema: Yes Labs: CBC, BMP 07/23/18 09:45 07/22/18 15:00 INR, PTT INR 1.44 (0.83-1.09) H 07/21/18 05:30 Fibrinogen 415.0 mg/dL (238-498) D 07/18/18 05:30 Problem List - Problems (1) Anemia Code(s): D64.9 - ANEMIA, UNSPECIFIED (2) Asthma Code(s): J45.909 - UNSPECIFIED ASTHMA, UNCOMPLICATED (3) DVT of lower extremity, bilateral Code(s): I82.403 - ACUTE EMBOLISM AND THOMBOS UNSP DEEP VEINS OF LOW EXTRM, BI (4) Hematoma Code(s): T14.8XXA - OTHER INJURY OF UNSPECIFIED BODY REGION, INITIAL ENCOUNTER (5) Chronic pain Code(s): G89.29 - OTHER CHRONIC PAIN (6) GERD (gastroesophageal reflux disease) Code(s): K21.9 - GASTRO-ESOPHAGEAL REFLUX DISEASE WITHOUT ESOPHAGITIS Qualifiers: Esophagitis presence: without esophagitis Qualified Code(s): K21.9 - Gastro -esophageal reflux disease without esophagitis (7) HLD (hyperlipidemia) Code(s): E78.5 - HYPERLIPIDEMIA, UNSPECIFIED (8) HTN (hypertension) Code(s): I10 - ESSENTIAL (PRIMARY) HYPERTENSION (9) DVT (deep venous thrombosis) Code(s): I82.409 - ACUTE EMBOLISM AND THOMBOS UNSP DEEP VN UNSP LOWER EXTREMITY Qualifiers: DVT location: lower extremity Chronicity: unspecified Laterality: right Assessment/Plan ASSESSMENT AND PLAN: r/o Pelvic Hematoma Acute Blood Loss Anemia Acute Bilateral Extensive DVTs h/o IVC filter Acute Kidney Injury Asthma Anemia Thrombocytopenia - monitor H/H - transfuse as needed - continue anticoagulation - pulse checks - abx as per id - monitor urine output, creatinine - O2 to keep SpO2 >90% - inhaled bronchodilators as needed DR HOPSON
[2018-07-23] MEDS: POLYETHYLENE GLYCOL 3350 119 GM BTL PO SCH (18:30)
[2018-07-23] MEDS ORDERED: INSULIN SLIDING SCALE (NOVOLOG) 1 VIAL SQ ONE (19:34)
[2018-07-23] MEDS: MONTELUKAST NA 10 MG TABLET PO SCH (21:36)
[2018-07-23] MEDS: LIDOCAINE PATCH REMOVAL MC SCH (21:37)
[2018-07-23] MEDS: ATORVASTATIN CA 10 MG TABLET (FP) PO SCH (21:37)
[2018-07-23] MEDS: MIRTAZAPINE 15 MG TABLET (FP) PO SCH (21:39)
[2018-07-24] MEDS ORDERED: PT OWN MED DRAWER 7, Y5N ONE ×2 (01:19→09:36)
[2018-07-24] MEDS: MEROPENEM 1 GM in DEXTROSE 5%-WATER 100 ML IVPB SCH ×2 (01:21→10:39)
[2018-07-24] MEDS: oxyCODONE HCL 5 MG TABLET PO PRN ×3 (01:21→17:34)
--- NOTE | 2018-07-24 02:33 | PN ---
Progress Note, Physician History of Present Illness: Pt seen and examined 07/23/18 however note is being entered now - Current Medication List Current Medications: Active Medications Acetaminophen (Tylenol -) 650 mg PO Q4H PRN PRN Reason: FEVER Last Admin: 07/23/18 17:12 Dose: 650 mg Atorvastatin Calcium (Lipitor -) 10 mg PO HS [facility] Last Admin: 07/23/18 21:37 Dose: 10 mg Budesonide/Formoterol Fumarate (Symbicort 160/4.5mcg -) 2 puff IH BID [facility] Last Admin: 07/23/18 21:39 Dose: 2 puff Calcium Carbonate/Cholecalciferol (Os-Ray 500+D -) 1 tab PO DAILY [facility] Last Admin: 07/23/18 10:38 Dose: 1 tab Cyclobenzaprine HCl (Flexeril -) 10 mg PO TID PRN PRN Reason: BACK PAIN Last Admin: 07/23/18 21:36 Dose: 10 mg Docusate Sodium (Colace -) 100 mg PO TID [facility] Last Admin: 07/23/18 21:36 Dose: 100 mg Enoxaparin Sodium 80 mg/ (Enoxaparin Sodium 50 mg) 130 mg SQ BID@0700,1900 [facility] Last Admin: 07/23/18 18:31 Dose: 130 mg Fenofibric Acid (Trilipix -) 135 mg PO DAILY [facility] Last Admin: 07/23/18 10:54 Dose: 135 mg Meropenem 1 gm/ Dextrose 100 mls @ 200 mls/hr IVPB Q8H-IV [facility] Last Admin: 07/24/18 01:21 Dose: 200 mls/hr Insulin Aspart (Novolog Vial Sliding Scale -) 1 vial SQ ACHS [facility]; Protocol Last Admin: 07/23/18 21:39 Dose: Not Given Insulin Detemir (Levemir Vial) 60 units SQ AM [facility] Last Admin: 07/23/18 06:11 Dose: 60 unit Insulin Detemir (Levemir Vial) 45 units SQ HS [facility] Last Admin: 07/23/18 21:37 Dose: Not Given Lidocaine (Lidoderm Patch -) 1 patch TP DAILY [facility] Last Admin: 07/23/18 10:40 Dose: 1 patch Mirtazapine (Remeron -) 7.5 mg PO HS [facility] Last Admin: 07/23/18 21:39 Dose: 7.5 mg Miscellaneous (Lidoderm Patch Removal) 1 each MC DAILY@2200 [facility] Last Admin: 07/23/18 21:37 Dose: 1 each Montelukast Sodium (Singulair -) 10 mg PO HS [facility] Last Admin: 07/23/18 21:36 Dose: 10 mg Oxycodone HCl (Roxicodone -) 10 mg PO Q6H PRN PRN Reason: PAIN LEVEL 6-10 Last Admin: 07/24/18 01:21 Dose: 10 mg Pantoprazole Sodium (Protonix -) 40 mg PO DAILY [facility] Last Admin: 07/23/18 10:38 Dose: 40 mg Polyethylene Glycol (Miralax (For Daily Use) -) 17 gm PO DAILY [facility] Last Admin: 07/23/18 18:30 Dose: 17 gm Tiotropium [place] (Spiriva Respimat) 2 puff IH DAILY [facility] Last Admin: 07/23/18 10:53 Dose: 2 puff - Objective Vital Signs: Vital Signs Temperature 98.8 F 07/24/18 02:00 Pulse Rate 95 H 07/24/18 02:00 Respiratory Rate 18 07/24/18 02:00 Blood Pressure 140/74 07/24/18 02:00 O2 Sat by Pulse Oximetry (%) 95 07/23/18 21:00 Labs: CBC, BMP 07/23/18 09:45 07/22/18 15:00 INR, PTT INR 1.44 (0.83-1.09) H 07/21/18 05:30 Fibrinogen 415.0 mg/dL (238-498) D 07/18/18 05:30 Problem List - Problems (1) DVT of lower extremity, bilateral Code(s): I82.403 - ACUTE EMBOLISM AND THOMBOS UNSP DEEP VEINS OF LOW EXTRM, BI (2) Hematoma Code(s): T14.8XXA - OTHER INJURY OF UNSPECIFIED BODY REGION, INITIAL ENCOUNTER (3) UTI (urinary tract infection) Code(s): N39.0 - URINARY TRACT INFECTION, SITE NOT SPECIFIED (4) Back pain Code(s): M54.9 - DORSALGIA, UNSPECIFIED Qualifiers: Back pain location: low back pain Chronicity: unspecified Back pain laterality: right Sciatica presence: unspecified whether sciatica present Qualified Code(s): M54.5 - Low back pain (5) Diabetes Code(s): E11.9 - TYPE 2 DIABETES MELLITUS WITHOUT COMPLICATIONS (6) HLD (hyperlipidemia) Code(s): E78.5 - HYPERLIPIDEMIA, UNSPECIFIED (7) Neuropathy due to type 2 diabetes mellitus Code(s): E11.40 - TYPE 2 DIABETES MELLITUS WITH DIABETIC NEUROPATHY, UNSP (8) Obesity (BMI 30-39.9) Code(s): E66.9 - OBESITY, UNSPECIFIED (9) ARF (acute renal failure) Code(s): N17.9 - ACUTE KIDNEY FAILURE, UNSPECIFIED (10) Asthma Code(s): J45.909 - UNSPECIFIED ASTHMA, UNCOMPLICATED (11) Anemia Code(s): D64.9 - ANEMIA, UNSPECIFIED
[2018-07-24 04:13] LABS: SERUM IRON SATURATION 10 % (15-55); TOTAL IRON BINDING CAPACITY 260 ug/dL (250-450); UIBC 233 ug/dL (131-425)
[2018-07-24] MEDS ORDERED: ENOXAPARIN NA (PORCINE) 80 MG/0.8 ML DISP.SYRIN SQ ONE ×2 (05:26→18:19)
[2018-07-24] MEDS ORDERED: ENOXAPARIN NA (PORCINE) 60 MG/0.6 ML DISP.SYRIN SQ ONE ×2 (05:27→18:19)
[2018-07-24] MEDS: DOCUSATE SODIUM 100 MG CAPSULE (FP) PO SCH ×3 (06:12→21:42)
[2018-07-24] MEDS: ENOXAPARIN SQ SCH ×2 (06:12→18:21)
[2018-07-24] MEDS: CYCLOBENZAPRINE HCL 10 MG TABLET (FP) PO PRN ×2 (06:12→15:01)
[2018-07-24] MEDS: INSULIN (LEVEMIR) 100 UNITS/ML UNITS SQ SCH ×2 (06:14→21:42)
[2018-07-24] MEDS: INSULIN SLIDING SCALE (NOVOLOG) 1 VIAL SQ SCH ×5 (06:42→21:42)
[2018-07-24 07:02] LABS: HEMATOCRIT 22.8 % (32.4-45.2); HEMOGLOBIN 7.4 GM/dL (10.7-15.3); MCH 29.4 pg (25.7-33.7); MCHC 32.4 g/dl (32.0-36.0); MEAN CELL VOLUME 90.8 fl (80-96); MEAN PLT VOLUME 9.9 fl (7.5-11.1); PLATELET COUNT 245 K/MM3 (134-434); RBC 2.51 M/mm3 (3.60-5.2); RDW 15.2 % (11.6-15.6); WHITE BLOOD COUNT 10.1 K/mm3 (4.0-10.0)
[2018-07-24 07:28] LABS: ALBUMIN 2.4 g/dl (3.4-5.0); ALK PHOS 100 U/L (45-117); ANION GAP 6 MMOL/L (8-16); BILIRUBIN,TOTAL 0.6 mg/dL (0.2-1); BLOOD UREA NITROGEN 15 mg/dL (7-18); CALCIUM 8.9 mg/dL (8.5-10.1); CHLORIDE 101 mmol/L (98-107); CO2 31 mmol/L (21-32); CREATININE 0.8 mg/dL (0.55-1.3); GLUCOSE,RANDOM 156 mg/dL (74-106); POTASSIUM 4.2 mmol/L (3.5-5.1); SGOT/AST 24 U/L (15-37); SGPT/ALT 21 U/L (13-61); SODIUM 137 mmol/L (136-145); TOT PROT 6.5 g/dl (6.4-8.2)
[2018-07-24] MEDS: LIDOCAINE 5% TOPICAL PATCH TP SCH (10:39)
[2018-07-24] MEDS: BUDESONIDE/FORMETEROL FUMARATE 160/4.5 mcg INHALER IH SCH ×2 (10:40→21:44)
[2018-07-24] MEDS: CALCIUM 500MG/VIT-D 200 UNITS COMBO TABLET (FP) PO SCH (10:40)
[2018-07-24] MEDS: PANTOPRAZOLE 40 MG TABLET (FP) PO SCH (10:40)
[2018-07-24] MEDS: TIOTROPIUM BROMIDE 2.5 MCG (SPIRIVA) RESPIMAT INHALER IH SCH (10:40)
[2018-07-24] MEDS: POLYETHYLENE GLYCOL 3350 119 GM BTL PO SCH (10:40)
[2018-07-24] MEDS: FENOFIBRIC ACID 135 MG CAP PO SCH (10:41)
--- NOTE | 2018-07-24 13:42 | PN ---
Progress Note (short form) - Note Progress Note: PULMONARY Legs still swollen but denies shortness of breath or chest pain. Vital Signs Period Temp Pulse Resp BP Sys/Gunter Pulse Ox Last 24 Hr 98.8 F-101.9 F 87-96 18-20 127-140/72-80 95-96 Gen: NAD at rest Heart: RRR Lung: decreased breath sounds at the bases Abd: soft, nontender Ext: + edema CBC, BMP 07/24/18 06:00 07/24/18 06:00 Active Medications Acetaminophen (Tylenol -) 650 mg PO Q4H PRN PRN Reason: FEVER Last Admin: 07/23/18 17:12 Dose: 650 mg Atorvastatin Calcium (Lipitor -) 10 mg PO HS [facility] Last Admin: 07/23/18 21:37 Dose: 10 mg Budesonide/Formoterol Fumarate (Symbicort 160/4.5mcg -) 2 puff IH BID [facility] Last Admin: 07/24/18 10:40 Dose: 2 puff Calcium Carbonate/Cholecalciferol (Os-Ray 500+D -) 1 tab PO DAILY [facility] Last Admin: 07/24/18 10:40 Dose: 1 tab Cyclobenzaprine HCl (Flexeril -) 10 mg PO TID PRN PRN Reason: BACK PAIN Last Admin: 07/24/18 06:12 Dose: 10 mg Docusate Sodium (Colace -) 100 mg PO TID [facility] Last Admin: 07/24/18 06:12 Dose: 100 mg Enoxaparin Sodium 80 mg/ (Enoxaparin Sodium 50 mg) 130 mg SQ BID@0700,1900 [facility] Last Admin: 07/24/18 06:12 Dose: 130 mg Fenofibric Acid (Trilipix -) 135 mg PO DAILY [facility] Last Admin: 07/24/18 10:41 Dose: 135 mg Meropenem 1 gm/ Dextrose 100 mls @ 200 mls/hr IVPB Q8H-IV [facility] Last Admin: 07/24/18 10:39 Dose: 200 mls/hr Insulin Aspart (Novolog Vial Sliding Scale -) 1 vial SQ ACHS [facility]; Protocol Last Admin: 07/24/18 12:04 Dose: 2 unit Insulin Detemir (Levemir Vial) 60 units SQ AM [facility] Last Admin: 07/24/18 06:14 Dose: 60 unit Insulin Detemir (Levemir Vial) 45 units SQ HS [facility] Last Admin: 07/23/18 21:37 Dose: Not Given Lidocaine (Lidoderm Patch -) 1 patch TP DAILY [facility] Last Admin: 07/24/18 10:39 Dose: 1 patch Mirtazapine (Remeron -) 7.5 mg PO HS [facility] Last Admin: 07/23/18 21:39 Dose: 7.5 mg Miscellaneous (Lidoderm Patch Removal) 1 each MC DAILY@2200 [facility] Last Admin: 07/23/18 21:37 Dose: 1 each Montelukast Sodium (Singulair -) 10 mg PO HS [facility] Last Admin: 07/23/18 21:36 Dose: 10 mg Oxycodone HCl (Roxicodone -) 10 mg PO Q6H PRN PRN Reason: PAIN LEVEL 6-10 Last Admin: 07/24/18 10:41 Dose: 10 mg Pantoprazole Sodium (Protonix -) 40 mg PO DAILY [facility] Last Admin: 07/24/18 10:40 Dose: 40 mg Polyethylene Glycol (Miralax (For Daily Use) -) 17 gm PO DAILY [facility] Last Admin: 07/24/18 10:40 Dose: 17 gm Tiotropium [place] (Spiriva Respimat) 2 puff IH DAILY [facility] Last Admin: 07/24/18 10:40 Dose: 2 puff A/P r/o Pelvic Hematoma Acute Blood Loss Anemia Acute Bilateral Extensive DVTs h/o IVC filter Acute Kidney Injury Asthma Anemia Thrombocytopenia - monitor H/H - transfuse as needed - continue anticoagulation - pulse checks - antibiotics per ID - monitor urine output, creatinine - O2 to keep SpO2 >90% - inhaled bronchodilators as needed
--- NOTE | 2018-07-24 15:57 | PN ---
Progress Note, Physician History of Present Illness: leg still swollen pain - Current Medication List Current Medications: Active Medications Acetaminophen (Tylenol -) 650 mg PO Q4H PRN PRN Reason: FEVER Last Admin: 07/23/18 17:12 Dose: 650 mg Atorvastatin Calcium (Lipitor -) 10 mg PO [facility] Last Admin: 07/23/18 21:37 Dose: 10 mg Budesonide/Formoterol Fumarate (Symbicort 160/4.5mcg -) 2 puff IH BID [facility] Last Admin: 07/24/18 10:40 Dose: 2 puff Calcium Carbonate/Cholecalciferol (Os-Ray 500+D -) 1 tab PO DAILY [facility] Last Admin: 07/24/18 10:40 Dose: 1 tab Cyclobenzaprine HCl (Flexeril -) 10 mg PO TID PRN PRN Reason: BACK PAIN Last Admin: 07/24/18 15:01 Dose: 10 mg Docusate Sodium (Colace -) 100 mg PO TID [facility] Last Admin: 07/24/18 15:00 Dose: 100 mg Enoxaparin Sodium 80 mg/ (Enoxaparin Sodium 50 mg) 130 mg SQ BID@0700,1900 [facility] Last Admin: 07/24/18 06:12 Dose: 130 mg Fenofibric Acid (Trilipix -) 135 mg PO DAILY [facility] Last Admin: 07/24/18 10:41 Dose: 135 mg Insulin Aspart (Novolog Vial Sliding Scale -) 1 vial SQ [facility]; Protocol Last Admin: 07/24/18 12:04 Dose: 2 unit Insulin Detemir (Levemir Vial) 60 units SQ AM [facility] Last Admin: 07/24/18 06:14 Dose: 60 unit Insulin Detemir (Levemir Vial) 45 units SQ HS [facility] Last Admin: 07/23/18 21:37 Dose: Not Given Lidocaine (Lidoderm Patch -) 1 patch TP DAILY [facility] Last Admin: 07/24/18 10:39 Dose: 1 patch Mirtazapine (Remeron -) 7.5 mg PO [facility] Last Admin: 07/23/18 21:39 Dose: 7.5 mg Miscellaneous (Lidoderm Patch Removal) 1 each MC DAILY@2200 [facility] Last Admin: 07/23/18 21:37 Dose: 1 each Montelukast Sodium (Singulair -) 10 mg PO [facility] Last Admin: 07/23/18 21:36 Dose: 10 mg Oxycodone HCl (Roxicodone -) 10 mg PO Q6H PRN PRN Reason: PAIN LEVEL 6-10 Last Admin: 07/24/18 10:41 Dose: 10 mg Pantoprazole Sodium (Protonix -) 40 mg PO DAILY [facility] Last Admin: 07/24/18 10:40 Dose: 40 mg Polyethylene Glycol (Miralax (For Daily Use) -) 17 gm PO DAILY [facility] Last Admin: 07/24/18 10:40 Dose: 17 gm Tiotropium [place] (Spiriva Respimat) 2 puff IH DAILY [facility] Last Admin: 07/24/18 10:40 Dose: 2 puff - Objective Vital Signs: Vital Signs Temperature 99.4 F 07/24/18 09:46 Pulse Rate 87 07/24/18 09:46 Respiratory Rate 20 07/24/18 09:46 Blood Pressure 135/73 07/24/18 09:46 O2 Sat by Pulse Oximetry (%) 96 07/24/18 09:00 Constitutional: Yes: No Distress, Calm Cardiovascular: Yes: Regular Rate and Rhythm Respiratory: Yes: Regular, CTA Bilaterally Gastrointestinal: Yes: Normal Bowel Sounds, Soft Musculoskeletal: Yes: Other (rt leg swollen) Extremities: Yes: Other Neurological: Yes: Alert, Oriented Psychiatric: Yes: Alert, Oriented Labs: CBC, BMP 07/24/18 06:00 07/24/18 06:00 INR, PTT INR 1.44 (0.83-1.09) H 07/21/18 05:30 Fibrinogen 415.0 mg/dL (238-498) D 07/18/18 05:30 Assessment/Plan Problem List - Problems (1) DVT of lower extremity, bilateral Code(s): I82.403 - ACUTE EMBOLISM AND THOMBOS UNSP DEEP VEINS OF LOW EXTRM, BI (2) Back pain Code(s): M54.9 - DORSALGIA, UNSPECIFIED Qualifiers: Back pain location: low back pain Chronicity: unspecified Back pain laterality: right Sciatica presence: unspecified whether sciatica present Qualified Code(s): M54.5 - Low back pain (3) Hyperglycemia Code(s): R73.9 - HYPERGLYCEMIA, UNSPECIFIED (4) Injury of right foot Code(s): S99.921A - UNSPECIFIED INJURY OF RIGHT FOOT, INITIAL ENCOUNTER Qualifiers: Encounter type: initial encounter Qualified Code(s): S99.921A - Unspecified injury of right foot, initial encounter (5) URI (upper respiratory infection) Code(s): J06.9 - ACUTE UPPER RESPIRATORY INFECTION, UNSPECIFIED 6 uti patients urine has esbl plan stopped abx will watch how she does if fever will restart rest as per the team
[2018-07-24] MEDS: ACETAMINOPHEN 325 MG TABLET (FP) PO PRN (17:33)
[2018-07-24] MEDS: MONTELUKAST NA 10 MG TABLET PO SCH (21:42)
[2018-07-24] MEDS: ATORVASTATIN CA 10 MG TABLET (FP) PO SCH (21:42)
[2018-07-24] MEDS: LIDOCAINE PATCH REMOVAL MC SCH (21:42)
[2018-07-24] MEDS: MIRTAZAPINE 15 MG TABLET (FP) PO SCH (21:46)
--- NOTE | 2018-07-24 22:55 | PN.GI ---
GI Progress Note - Objective Vital Signs: Vital Signs Temperature 98.2 F 07/24/18 14:00 Pulse Rate 85 07/24/18 14:00 Respiratory Rate 20 07/24/18 14:00 Blood Pressure 132/74 07/24/18 14:00 O2 Sat by Pulse Oximetry (%) 96 07/24/18 09:00 Labs: CBC, BMP 07/24/18 06:00 07/24/18 06:00 INR, PTT INR 1.44 (0.83-1.09) H 07/21/18 05:30 Fibrinogen 415.0 mg/dL (238-498) D 07/18/18 05:30 Problem List - Problems (1) DVT of lower extremity, bilateral Code(s): I82.403 - ACUTE EMBOLISM AND THOMBOS UNSP DEEP VEINS OF LOW EXTRM, BI (2) Hematoma Code(s): T14.8XXA - OTHER INJURY OF UNSPECIFIED BODY REGION, INITIAL ENCOUNTER (3) UTI (urinary tract infection) Code(s): N39.0 - URINARY TRACT INFECTION, SITE NOT SPECIFIED (4) Back pain Code(s): M54.9 - DORSALGIA, UNSPECIFIED Qualifiers: Back pain location: low back pain Chronicity: unspecified Back pain laterality: right Sciatica presence: unspecified whether sciatica present Qualified Code(s): M54.5 - Low back pain (5) Diabetes Code(s): E11.9 - TYPE 2 DIABETES MELLITUS WITHOUT COMPLICATIONS (6) HLD (hyperlipidemia) Code(s): E78.5 - HYPERLIPIDEMIA, UNSPECIFIED (7) Neuropathy due to type 2 diabetes mellitus Code(s): E11.40 - TYPE 2 DIABETES MELLITUS WITH DIABETIC NEUROPATHY, UNSP (8) Obesity (BMI 30-39.9) Code(s): E66.9 - OBESITY, UNSPECIFIED (9) ARF (acute renal failure) Code(s): N17.9 - ACUTE KIDNEY FAILURE, UNSPECIFIED (10) Asthma Code(s): J45.909 - UNSPECIFIED ASTHMA, UNCOMPLICATED (11) Anemia Code(s): D64.9 - ANEMIA, UNSPECIFIED
--- NOTE | 2018-07-24 23:04 | PN ---
Progress Note (short form) - Note Progress Note: patient seen and examined Did hakan PT today AFVSS Cor: RSR, No murmurs, No gallops Lungs: Clear to P&A Abd: Soft, Normal bowel sounds, No organomegaly Ext:3 + edema b/l labs/meds reviewed a/p 57 year old female, with a significant past medical history of chronic back pain , h/o unprovoked RLE DVT/PE (2014, treated with anticoagulation upuntil id 2017 and then discontinued due to frequent falls, also with superficial vein thrombosis in 06/2017 on prophy lovenox up until 3 months ago but was discontinued due to falls. Thrombophilia w/u was negative in the past. Imaging studies -- CT and u/s extensive DVT from ivc to iliacs to b/l lower extremities. 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 mri pelvis
--- NOTE | 2018-07-24 23:36 | PN ---
Progress Note, Physician History of Present Illness: Pt still complains of pain and swelling of legs - Current Medication List Current Medications: Active Medications Acetaminophen (Tylenol -) 650 mg PO Q4H PRN PRN Reason: FEVER Last Admin: 07/24/18 17:33 Dose: 650 mg Atorvastatin Calcium (Lipitor -) 10 mg PO HS [facility] Last Admin: 07/24/18 21:42 Dose: 10 mg Budesonide/Formoterol Fumarate (Symbicort 160/4.5mcg -) 2 puff IH BID [facility] Last Admin: 07/24/18 21:44 Dose: 2 puff Calcium Carbonate/Cholecalciferol (Os-Ray 500+D -) 1 tab PO DAILY [facility] Last Admin: 07/24/18 10:40 Dose: 1 tab Cyclobenzaprine HCl (Flexeril -) 10 mg PO TID PRN PRN Reason: BACK PAIN Last Admin: 07/24/18 15:01 Dose: 10 mg Docusate Sodium (Colace -) 100 mg PO TID [facility] Last Admin: 07/24/18 21:42 Dose: 100 mg Enoxaparin Sodium 80 mg/ (Enoxaparin Sodium 50 mg) 130 mg SQ BID@0700,1900 [facility] Last Admin: 07/24/18 18:21 Dose: 130 mg Fenofibric Acid (Trilipix -) 135 mg PO DAILY [facility] Last Admin: 07/24/18 10:41 Dose: 135 mg Insulin Aspart (Novolog Vial Sliding Scale -) 1 vial SQ [facility]; Protocol Last Admin: 07/24/18 21:42 Dose: Not Given Insulin Detemir (Levemir Vial) 60 units SQ AM [facility] Last Admin: 07/24/18 06:14 Dose: 60 unit Insulin Detemir (Levemir Vial) 45 units SQ HS [facility] Last Admin: 07/24/18 21:42 Dose: Not Given Lidocaine (Lidoderm Patch -) 1 patch TP DAILY [facility] Last Admin: 07/24/18 10:39 Dose: 1 patch Mirtazapine (Remeron -) 7.5 mg PO HS [facility] Last Admin: 07/24/18 21:46 Dose: 7.5 mg Miscellaneous (Lidoderm Patch Removal) 1 each MC DAILY@2200 [facility] Last Admin: 07/24/18 21:42 Dose: 1 each Montelukast Sodium (Singulair -) 10 mg PO HS [facility] Last Admin: 07/24/18 21:42 Dose: 10 mg Oxycodone HCl (Roxicodone -) 10 mg PO Q6H PRN PRN Reason: PAIN LEVEL 6-10 Last Admin: 07/24/18 17:34 Dose: 10 mg Pantoprazole Sodium (Protonix -) 40 mg PO DAILY [facility] Last Admin: 07/24/18 10:40 Dose: 40 mg Polyethylene Glycol (Miralax (For Daily Use) -) 17 gm PO DAILY [facility] Last Admin: 07/24/18 10:40 Dose: 17 gm Tiotropium [place] (Spiriva Respimat) 2 puff IH DAILY [facility] Last Admin: 07/24/18 10:40 Dose: 2 puff - Objective Vital Signs: Vital Signs Temperature 99.3 F 07/24/18 21:00 Pulse Rate 89 07/24/18 21:00 Respiratory Rate 20 07/24/18 21:00 Blood Pressure 113/63 07/24/18 21:00 O2 Sat by Pulse Oximetry (%) 95 07/24/18 21:00 Neck: Yes: WNL, Supple Cardiovascular: Yes: WNL, Regular Rate and Rhythm Respiratory: Yes: WNL, Regular, CTA Bilaterally Gastrointestinal: Yes: WNL, Normal Bowel Sounds, Soft Labs: CBC, BMP 07/24/18 06:00 07/24/18 06:00 INR, PTT INR 1.44 (0.83-1.09) H 07/21/18 05:30 Fibrinogen 415.0 mg/dL (238-498) D 07/18/18 05:30 Problem List - Problems (1) DVT of lower extremity, bilateral Assessment/Plan: Cont lovenox DVT extending from IVC filter to inf vena cava/common iliac/external iliac B/L Monitor for bleeding H/O IVC filter Encourage OOB w/ ambulation Spoke to pt at length about need for STR placement Code(s): I82.403 - ACUTE EMBOLISM AND THOMBOS UNSP DEEP VEINS OF LOW EXTRM, BI (2) Hematoma Assessment/Plan: CT scan abd showed: No change in pelvic hematomas and multiple thrombosis's Monitor for bleeding Code(s): T14.8XXA - OTHER INJURY OF UNSPECIFIED BODY REGION, INITIAL ENCOUNTER (3) UTI (urinary tract infection) Assessment/Plan: Pt is now off antibxs Monitor temp curve Code(s): N39.0 - URINARY TRACT INFECTION, SITE NOT SPECIFIED (4) Back pain Assessment/Plan: Chronic back pain Will need PT and enocurage OOB to chair Cont lidocaine/oxycodone/flexeril Add stool softners Code(s): M54.9 - DORSALGIA, UNSPECIFIED Qualifiers: Back pain location: low back pain Chronicity: unspecified Back pain laterality: right Sciatica presence: unspecified whether sciatica present Qualified Code(s): M54.5 - Low back pain (5) Diabetes Assessment/Plan: Cont sliding scale w/ coverage/levemir Code(s): E11.9 - TYPE 2 DIABETES MELLITUS WITHOUT COMPLICATIONS (6) HLD (hyperlipidemia) Assessment/Plan: Cont lipitor/fenofibrate Code(s): E78.5 - HYPERLIPIDEMIA, UNSPECIFIED (7) Neuropathy due to type 2 diabetes mellitus Code(s): E11.40 - TYPE 2 DIABETES MELLITUS WITH DIABETIC NEUROPATHY, UNSP (8) Obesity (BMI 30-39.9) Code(s): E66.9 - OBESITY, UNSPECIFIED (9) ARF (acute renal failure) Assessment/Plan: Creatinine/Bun improved and now normal Code(s): N17.9 - ACUTE KIDNEY FAILURE, UNSPECIFIED (10) Asthma Assessment/Plan: Cont spireva/symbicort Code(s): J45.909 - UNSPECIFIED ASTHMA, UNCOMPLICATED (11) Anemia Assessment/Plan: Acute blood loss anemia Monitor H/H Code(s): D64.9 - ANEMIA, UNSPECIFIED
[2018-07-25] MEDS: ACETAMINOPHEN 325 MG TABLET (FP) PO PRN ×3 (01:30→19:48)
[2018-07-25] MEDS: CYCLOBENZAPRINE HCL 10 MG TABLET (FP) PO PRN (01:30)
[2018-07-25] MEDS: oxyCODONE HCL 5 MG TABLET PO PRN ×3 (03:08→19:47)
[2018-07-25] MEDS: DOCUSATE SODIUM 100 MG CAPSULE (FP) PO SCH ×3 (05:29→22:27)
[2018-07-25] MEDS ORDERED: ENOXAPARIN NA (PORCINE) 80 MG/0.8 ML DISP.SYRIN SQ ONE ×3 (05:40→17:17)
[2018-07-25] MEDS ORDERED: ENOXAPARIN NA (PORCINE) 60 MG/0.6 ML DISP.SYRIN SQ ONE ×3 (05:40→17:17)
[2018-07-25] MEDS: INSULIN (LEVEMIR) 100 UNITS/ML UNITS SQ SCH ×2 (06:28→22:28)
[2018-07-25] MEDS: ENOXAPARIN SQ SCH ×2 (06:28→18:03)
[2018-07-25] MEDS: INSULIN SLIDING SCALE (NOVOLOG) 1 VIAL SQ SCH ×4 (06:29→22:29)
[2018-07-25 07:04] LABS: BASO % 0.6 % (0-2.0); EOS % 1.7 % (0-4.5); HEMATOCRIT 22.9 % (32.4-45.2); HEMOGLOBIN 7.3 GM/dL (10.7-15.3); LYMPH % 16.3 % (8-40); MCH 28.9 pg (25.7-33.7); MCHC 32.1 g/dl (32.0-36.0); MEAN CELL VOLUME 90.1 fl (80-96); MEAN PLT VOLUME 9.9 fl (7.5-11.1); MONO % 11.4 % (3.8-10.2); PLATELET COUNT 282 K/MM3 (134-434); RBC 2.54 M/mm3 (3.60-5.2); RDW 15.6 % (11.6-15.6); WHITE BLOOD COUNT 10.2 K/mm3 (4.0-10.0)
[2018-07-25 07:36] LABS: ALBUMIN 2.4 g/dl (3.4-5.0); ALK PHOS 99 U/L (45-117); ANION GAP 4 MMOL/L (8-16); BILIRUBIN,TOTAL 0.7 mg/dL (0.2-1); BLOOD UREA NITROGEN 16 mg/dL (7-18); CALCIUM 9.1 mg/dL (8.5-10.1); CHLORIDE 98 mmol/L (98-107); CO2 33 mmol/L (21-32); CREATININE 0.9 mg/dL (0.55-1.3); GLUCOSE,RANDOM 101 mg/dL (74-106); POTASSIUM 4.2 mmol/L (3.5-5.1); SGOT/AST 23 U/L (15-37); SGPT/ALT 20 U/L (13-61); SODIUM 135 mmol/L (136-145); TOT PROT 6.5 g/dl (6.4-8.2)
--- NOTE | 2018-07-25 08:23 | CON.GI ---
Consult Consult Specialty:: GI Referred by:: Dr. Janna Plunkett Reason for Consultation:: Anemia, r/o GI bleed - History of Present Illness Chief Complaint: Anemia History of Present Illness: Patient is a 57 y/o female with past medical history of chronic back pain, DVT/ PE 2011 (treated with AC but discontinued 3 months ago due to frequent falls). I was consult to evaluate patient for Anemia R/O GI bleed. Patient is currently on Lovenox SQ due to extensive DVT. Current Hg 7.3. Patient denies having endoscopy performed in the past. Complains of sharp, intermittent episodes of non-radiating LLQ pain. Denies rectal bleeding, blood in stool, melena, abnormal weight loss. s/p colonoscopy at [facility] a few years ago and was reported to be normal - History Source History Provided By: Patient Limitations to Obtaining History: No Limitations - Past Medical History Cardio/Vascular: Yes: HTN, Hyperlipdemia Pulmonary: Yes: Asthma ...LMP: 07/29/11 Endocrine: Yes: Diabetes Mellitus - Alcohol/Substance Use Hx Alcohol Use: No - Smoking History Smoking history: Never smoked Have you smoked in the past 12 months: No Aproximately how many cigarettes per day: 0 If you are a former smoker, when did you quit?: 2006 - Social History History of Recent Travel: No Home Medications - Allergies Allergies/Adverse Reactions: Allergies Allergy/AdvReac Type Severity Reaction Status Date / Time duloxetine HCl AdvReac Mild dizzy Verified 07/15/18 15:39 [From Cymbalta] gabapentin AdvReac Mild edema Verified 07/15/18 15:39 shellfish derived AdvReac Mild Swelling Verified 07/15/18 15:39 - Home Medications Home Medications: Ambulatory Orders Albuterol Sulfate Inhaler - [Ventolin HFA Inhaler -] 1 - 2 inh IH Q4H PRN #0 inh 04/02/14 metFORMIN HCL [Metformin HCl] 500 mg PO DAILY 03/03/15 Lisinopril [Prinivil] 20 mg PO DAILY 08/24/16 Mirtazapine [Remeron -] 7.5 mg PO HS 08/24/16 Insulin Glargine,Hum.rec.anlog [Basaglar Kwikpen U-100] 60 unit SQ HS 11/23/16 Calcium Carbonate/Vitamin D3 [Calcium 600-Vit D3 400 Tablet] 1 each PO DAILY Fenofibrate Nanocrystallized [Fenofibrate] 145 mg PO DAILY 06/26/17 Omeprazole 40 mg PO DAILY 06/26/17 Atorvastatin Ca [Lipitor] 10 mg PO HS #30 tablet 07/04/17 Budesonide/Formeterol Fumarate [SYMBICORT 160/4.5mcg -] 2 puff IH BID #1 inhaler 07/04/17 Montelukast Na [Singulair -] 10 mg PO HS #30 tablet 07/04/17 Tiotropium [place] [Spiriva] 1 puff IH DAILY #1 inh 07/04/17 Docusate Sodium [Colace] 100 mg PO TID #90 capsule 09/04/17 Diclofenac Sodium [Voltaren] 2 gm TP TID PRN #3 tube 02/19/18 Ergocalciferol [Vitamin D2] 50,000 unit PO Q7D@1000 #4 capsule 03/25/18 Guaifenesin [Mucinex -] 600 mg PO BID PRN #28 tablet.er 03/25/18 Insulin (Novolog) [Novolog -] 5 units SQ TIDAC 05/23/18 Cyclobenzaprine HCl [Flexeril -] 10 mg PO TID PRN #90 tablet 06/23/18 Oxycodone HCl/Acetaminophen [Endocet 10-325 mg Tablet] 1 each PO BID PRN #60 tablet MDD 2 06/23/18 Lidocaine 5% Patch [Lidoderm Patch -] 1 patch TP DAILY #7 patch 07/15/18 Family Disease History - Family Disease History Family Disease History: Diabetes: Mother (stroke), Sister, Heart Disease: Father , Mother, CA: Grandparent (paternal grandfather, colon/stomach ?), Other: Mother , Brother (renal), Daughter (RA) Review of Systems - Review of Systems Constitutional: reports: No Symptoms Eyes: reports: No Symptoms HENT: reports: No Symptoms Neck: reports: No Symptoms Cardiovascular: reports: Palpitations Respiratory: reports: No Symptoms Gastrointestinal: reports: Abdominal Pain Genitourinary: reports: No Symptoms Breasts: reports: No Symptoms Reported Musculoskeletal: reports: Muscle Weakness Integumentary: reports: No Symptoms Neurological: reports: No Symptoms Endocrine: reports: No Symptoms Hematology/Lymphatic: reports: No Symptoms Psychiatric: reports: No Symptoms Physical Exam-GI Vital Signs: Vital Signs Temperature 98.6 F 07/25/18 05:42 Pulse Rate 83 07/25/18 05:42 Respiratory Rate 20 07/25/18 05:42 Blood Pressure 112/70 07/25/18 05:42 O2 Sat by Pulse Oximetry (%) 95 07/24/18 21:00 Constitutional: Yes: No Distress, Calm Eyes: Yes: Conjunctiva Clear HENT: Yes: Atraumatic Neck: Yes: Supple Cardiovascular: Yes: Regular Rate and Rhythm Respiratory: Yes: Diminished Gastrointestinal Inspection: Yes: Distention. No: WNL, Ascites, Hernia, Scars, Other ...Auscultate: Yes: Normoactive Bowel Sounds. No: Hyperactive Bowel Sounds, Hypoactive Bowel Sounds, No Bowel Sounds, Other ...Palpate: Yes: Soft. No: Firm/Rigid, Guarding, Hepatomegaly, Mass, Pulsatile Mass, Splenomegaly, Tenderness, Tenderness, Epigastium, Tenderness, Rebound, Other ...Percussion: Yes: Other (high tympany). No: Dullness, Fluid Wave, Tympanitic Musculoskeletal: Yes: Muscle Weakness Edema: Yes (B/L lower extremity) Neurological: Yes: Alert, Oriented Psychiatric: Yes: Alert, Oriented Labs: CBC, BMP 07/25/18 06:00 07/25/18 06:00 INR, PTT INR 1.44 (0.83-1.09) H 07/21/18 05:30 Fibrinogen 415.0 mg/dL (238-498) D 07/18/18 05:30 Active Medications Generic Name Dose Route Start Last Admin Trade Name Junq PRN Reason Stop Dose Admin Acetaminophen 650 mg 07/22/18 15:49 07/25/18 01:30 Tylenol - PO 650 mg Q4H PRN Administration FEVER Atorvastatin Calcium 10 mg 07/21/18 22:00 07/24/18 21:42 Lipitor - PO 10 mg HS [facility] Administration Budesonide/Formoterol Fumarate 2 puff 07/21/18 22:00 07/24/18 21:44 Symbicort 160/4.5mcg - IH 2 puff BID [facility] Administration Calcium Carbonate/Cholecalciferol 1 tab 07/22/18 10:00 07/24/18 10:40 Os-Ray 500+D - PO 1 tab DAILY [facility] Administration Cyclobenzaprine HCl 10 mg 07/21/18 21:12 07/25/18 01:30 Flexeril - PO 10 mg TID PRN Administration BACK PAIN Docusate Sodium 100 mg 07/21/18 22:00 07/25/18 05:29 Colace - PO Not Given TID [facility] Enoxaparin Sodium 80 mg/ 130 mg 07/21/18 19:00 07/25/18 06:28 Enoxaparin Sodium 50 mg SQ 130 mg BID@0700,1900 [facility] Administration Fenofibric Acid 135 mg 07/22/18 10:00 07/24/18 10:41 Trilipix - PO 135 mg DAILY [facility] Administration Insulin Aspart 1 vial 07/21/18 22:00 07/25/18 06:29 Novolog Vial Sliding Scale - SQ Not Given ACHS [facility] Protocol Insulin Detemir 60 units 07/22/18 07:00 07/25/18 06:28 Levemir Vial SQ Not Given AM [facility] Insulin Detemir 45 units 07/21/18 22:00 07/24/18 21:42 Levemir Vial SQ Not Given HS [facility] Lidocaine 1 patch 07/22/18 10:00 07/24/18 10:39 Lidoderm Patch - TP 1 patch DAILY [facility] Administration Mirtazapine 7.5 mg 07/21/18 22:00 07/24/18 21:46 Remeron - PO 7.5 mg HS [facility] Administration Miscellaneous 1 each 07/21/18 22:00 07/24/18 21:42 Lidoderm Patch Removal MC 1 each DAILY@2200 [facility] Administration Montelukast Sodium 10 mg 07/21/18 22:00 07/24/18 21:42 Singulair - PO 10 mg HS [facility] Administration Oxycodone HCl 10 mg 07/23/18 00:59 07/25/18 03:08 Roxicodone - PO 10 mg Q6H PRN Administration PAIN LEVEL 6-10 Pantoprazole Sodium 40 mg 07/22/18 10:00 07/24/18 10:40 Protonix - PO 40 mg DAILY [facility] Administration Polyethylene Glycol 17 gm 07/23/18 18:30 07/24/18 10:40 Miralax (For Daily Use) - PO 17 gm DAILY [facility] Administration Tiotropium [place] 2 puff 07/22/18 10:00 07/24/18 10:40 Spiriva Respimat IH 2 puff DAILY [facility] Administration Imaging - Results Cat Scan: Report Reviewed Problem List - Problems (1) Anemia Assessment/Plan: R>doubt gi blood loss no indication to stop AC, continue with Lovenox >Protonix 40mg BID >serial CBC >Hg 7.3 transfuse 2U PRBC >monitor Hg daily, transfuse for Hg <8.0 > anemia most likely secondry to pelvic hematoma, Hematology on board Code(s): D64.9 - ANEMIA, UNSPECIFIED
[2018-07-25] MEDS: POLYETHYLENE GLYCOL 3350 119 GM BTL PO SCH ×2 (09:39→22:27)
[2018-07-25] MEDS: PANTOPRAZOLE 40 MG TABLET (FP) PO SCH ×2 (09:39→22:27)
[2018-07-25] MEDS: LIDOCAINE 5% TOPICAL PATCH TP SCH (09:39)
[2018-07-25] MEDS: CALCIUM 500MG/VIT-D 200 UNITS COMBO TABLET (FP) PO SCH (09:39)
[2018-07-25] MEDS: TIOTROPIUM BROMIDE 2.5 MCG (SPIRIVA) RESPIMAT INHALER IH SCH (10:08)
[2018-07-25] MEDS: BUDESONIDE/FORMETEROL FUMARATE 160/4.5 mcg INHALER IH SCH ×2 (10:08→22:29)
[2018-07-25] MEDS: FENOFIBRIC ACID 135 MG CAP PO SCH (10:08)
--- NOTE | 2018-07-25 12:25 | PN ---
Progress Note, Physician History of Present Illness: PULMONARY ALERT,C/O PAIN LLE,-RESP DISTRESS - Current Medication List Current Medications: Active Medications Acetaminophen (Tylenol -) 650 mg PO Q4H PRN PRN Reason: FEVER Last Admin: 07/25/18 01:30 Dose: 650 mg Atorvastatin Calcium (Lipitor -) 10 mg PO HS [facility] Last Admin: 07/24/18 21:42 Dose: 10 mg Budesonide/Formoterol Fumarate (Symbicort 160/4.5mcg -) 2 puff IH BID [facility] Last Admin: 07/25/18 10:08 Dose: 2 puff Calcium Carbonate/Cholecalciferol (Os-Ray 500+D -) 1 tab PO DAILY [facility] Last Admin: 07/25/18 09:39 Dose: 1 tab Cyclobenzaprine HCl (Flexeril -) 10 mg PO TID PRN PRN Reason: BACK PAIN Last Admin: 07/25/18 01:30 Dose: 10 mg Docusate Sodium (Colace -) 100 mg PO TID [facility] Last Admin: 07/25/18 05:29 Dose: Not Given Enoxaparin Sodium 80 mg/ (Enoxaparin Sodium 50 mg) 130 mg SQ BID@0700,1900 [facility] Last Admin: 07/25/18 06:28 Dose: 130 mg Fenofibric Acid (Trilipix -) 135 mg PO DAILY [facility] Last Admin: 07/25/18 10:08 Dose: 135 mg Insulin Aspart (Novolog Vial Sliding Scale -) 1 vial SQ [facility]; Protocol Last Admin: 07/25/18 12:16 Dose: Not Given Insulin Detemir (Levemir Vial) 60 units SQ AM [facility] Last Admin: 07/25/18 06:28 Dose: Not Given Insulin Detemir (Levemir Vial) 45 units SQ HS [facility] Last Admin: 07/24/18 21:42 Dose: Not Given Lidocaine (Lidoderm Patch -) 1 patch TP DAILY [facility] Last Admin: 07/25/18 09:39 Dose: 1 patch Mirtazapine (Remeron -) 7.5 mg PO HS [facility] Last Admin: 07/24/18 21:46 Dose: 7.5 mg Miscellaneous (Lidoderm Patch Removal) 1 each MC DAILY@2200 [facility] Last Admin: 07/24/18 21:42 Dose: 1 each Montelukast Sodium (Singulair -) 10 mg PO HS [facility] Last Admin: 07/24/18 21:42 Dose: 10 mg Oxycodone HCl (Roxicodone -) 10 mg PO Q6H PRN PRN Reason: PAIN LEVEL 6-10 Last Admin: 07/25/18 09:39 Dose: 10 mg Pantoprazole Sodium (Protonix -) 40 mg PO BID [facility] Last Admin: 07/25/18 09:39 Dose: 40 mg Polyethylene Glycol (Miralax (For Daily Use) -) 17 gm PO DAILY [facility] Last Admin: 07/25/18 09:39 Dose: 17 gm Tiotropium [place] (Spiriva Respimat) 2 puff IH DAILY [facility] Last Admin: 07/25/18 10:08 Dose: 2 puff - Objective Vital Signs: Vital Signs Temperature 98.6 F 07/25/18 10:00 Pulse Rate 83 07/25/18 10:00 Respiratory Rate 20 07/25/18 10:00 Blood Pressure 130/73 07/25/18 10:00 O2 Sat by Pulse Oximetry (%) 95 07/25/18 09:00 Constitutional: Yes: Well Nourished, Mild Distress (SECONDARY TO PAIN) Eyes: Yes: WNL HENT: Yes: WNL Neck: Yes: WNL Cardiovascular: Yes: Regular Rate and Rhythm, S1, S2 Respiratory: Yes: Diminished Gastrointestinal: Yes: Normal Bowel Sounds, Soft, Abdomen, Obese Extremities: Yes: WNL Edema: Yes Labs: CBC, BMP 07/25/18 06:00 07/25/18 06:00 INR, PTT INR 1.44 (0.83-1.09) H 07/21/18 05:30 Fibrinogen 415.0 mg/dL (238-498) D 07/18/18 05:30 Problem List - Problems (1) Anemia Code(s): D64.9 - ANEMIA, UNSPECIFIED (2) Asthma Code(s): J45.909 - UNSPECIFIED ASTHMA, UNCOMPLICATED (3) DVT of lower extremity, bilateral Code(s): I82.403 - ACUTE EMBOLISM AND THOMBOS UNSP DEEP VEINS OF LOW EXTRM, BI (4) Hematoma Code(s): T14.8XXA - OTHER INJURY OF UNSPECIFIED BODY REGION, INITIAL ENCOUNTER (5) Chronic pain Code(s): G89.29 - OTHER CHRONIC PAIN (6) GERD (gastroesophageal reflux disease) Code(s): K21.9 - GASTRO-ESOPHAGEAL REFLUX DISEASE WITHOUT ESOPHAGITIS Qualifiers: Esophagitis presence: without esophagitis Qualified Code(s): K21.9 - Gastro -esophageal reflux disease without esophagitis (7) HLD (hyperlipidemia) Code(s): E78.5 - HYPERLIPIDEMIA, UNSPECIFIED (8) HTN (hypertension) Code(s): I10 - ESSENTIAL (PRIMARY) HYPERTENSION (9) DVT (deep venous thrombosis) Code(s): I82.409 - ACUTE EMBOLISM AND THOMBOS UNSP DEEP VN UNSP LOWER EXTREMITY Qualifiers: DVT location: lower extremity Chronicity: unspecified Laterality: right Assessment/Plan ASSESSMENT AND PLAN: r/o Pelvic Hematoma Acute Blood Loss Anemia Acute Bilateral Extensive DVTs h/o IVC filter Acute Kidney Injury Asthma Anemia Thrombocytopenia - monitor H/H - transfuse - continue anticoagulation - pulse checks - monitor urine output, creatinine - O2 to keep SpO2 >90% - inhaled bronchodilators as needed - vascular surgery f/u DR HOPSON
--- NOTE | 2018-07-25 14:39 | PN ---
Physical Exam: SUBJECTIVE: Patient seen and examined at bedside. Patient was febrile overnight. Otherwise feels similar to yesterday, complaining of pain in her legs. Has been walking more than the day prior. OBJECTIVE: Vital Signs Period Temp Pulse Resp BP Sys/Gunter Pulse Ox Last 24 Hr 98.6 F-101.3 F 83-96 20-20 112-130/63-75 95-95 GENERAL: A&Ox3, no acute distress EYES: PERRLA, EOMI ENT: Moist mucus membranes NECK: No JVD LUNGS: CTA, no wheezes HEART: RRR, no murmurs ABDOMEN: Obese, soft and nontender EXTREMITIES: 2+ pulses, 2+ edema noted on b/l lower extremities, extremities well perfused and warm NEUROLOGICAL: Cranial nerves II-XII intact. Laboratory Results - last 24 hr 07/24/18 07/24/18 07/25/18 17:18 21:41 05:25 WBC RBC Hgb Hct MCV MCH MCHC RDW Plt Count MPV Absolute Neuts (auto) Neutrophils % Lymphocytes % Monocytes % Eosinophils % Basophils % Nucleated RBC % PTT (Actin FS) Sodium Potassium Chloride Carbon Dioxide Anion Gap BUN Creatinine Creat Clearance w eGFR POC Glucometer 145 107 113 Random Glucose Calcium Total Bilirubin AST ALT Alkaline Phosphatase Total Protein Albumin Blood Type Antibody Screen Crossmatch 07/25/18 07/25/18 07/25/18 06:00 06:00 06:00 WBC 10.2 H RBC 2.54 L Hgb 7.3 L Hct 22.9 L MCV 90.1 MCH 28.9 MCHC 32.1 RDW 15.6 Plt Count 282 MPV 9.9 Absolute Neuts (auto) 7.1 Neutrophils % 70.0 Lymphocytes % 16.3 D Monocytes % 11.4 H Eosinophils % 1.7 Basophils % 0.6 Nucleated RBC % 0 PTT (Actin FS) 36.0 Sodium 135 L Potassium 4.2 Chloride 98 Carbon Dioxide 33 H Anion Gap 4 L BUN 16 Creatinine 0.9 Creat Clearance w eGFR 64.09 POC Glucometer Random Glucose 101 Calcium 9.1 Total Bilirubin 0.7 AST 23 ALT 20 Alkaline Phosphatase 99 Total Protein 6.5 Albumin 2.4 L Blood Type Antibody Screen Crossmatch 07/25/18 07/25/18 06:00 09:30 WBC RBC Hgb Hct MCV MCH MCHC RDW Plt Count MPV Absolute Neuts (auto) Neutrophils % Lymphocytes % Monocytes % Eosinophils % Basophils % Nucleated RBC % PTT (Actin FS) Sodium Potassium Chloride Carbon Dioxide Anion Gap BUN Creatinine Creat Clearance w eGFR POC Glucometer Random Glucose Calcium Total Bilirubin AST ALT Alkaline Phosphatase Total Protein Albumin Blood Type O POSITIVE O POSITIVE Antibody Screen Negative Crossmatch See Detail Active Medications Generic Name Dose Route Start Last Admin Trade Name Freq PRN Reason Stop Dose Admin Acetaminophen 650 mg 07/22/18 15:49 07/25/18 13:22 Tylenol - PO 650 mg Q4H PRN Administration FEVER Atorvastatin Calcium 10 mg 07/21/18 22:00 07/24/18 21:42 Lipitor - PO 10 mg HS [facility] Administration Budesonide/Formoterol Fumarate 2 puff 07/21/18 22:00 07/25/18 10:08 Symbicort 160/4.5mcg - IH 2 puff BID [facility] Administration Calcium Carbonate/Cholecalciferol 1 tab 07/22/18 10:00 07/25/18 09:39 Os-Ray 500+D - PO 1 tab DAILY [facility] Administration Cyclobenzaprine HCl 10 mg 07/21/18 21:12 07/25/18 01:30 Flexeril - PO 10 mg TID PRN Administration BACK PAIN Docusate Sodium 100 mg 07/21/18 22:00 07/25/18 13:22 Colace - PO 100 mg TID [facility] Administration Enoxaparin Sodium 80 mg/ 130 mg 07/21/18 19:00 07/25/18 06:28 Enoxaparin Sodium 50 mg SQ 130 mg BID@0700,1900 [facility] Administration Fenofibric Acid 135 mg 07/22/18 10:00 07/25/18 10:08 Trilipix - PO 135 mg DAILY [facility] Administration Insulin Aspart 1 vial 07/21/18 22:00 07/25/18 12:16 Novolog Vial Sliding Scale - SQ Not Given ACHS [facility] Protocol Insulin Detemir 60 units 07/22/18 07:00 07/25/18 06:28 Levemir Vial SQ Not Given AM [facility] Insulin Detemir 45 units 07/21/18 22:00 07/24/18 21:42 Levemir Vial SQ Not Given HS [facility] Lidocaine 1 patch 07/22/18 10:00 07/25/18 09:39 Lidoderm Patch - TP 1 patch DAILY [facility] Administration Mirtazapine 7.5 mg 07/21/18 22:00 07/24/18 21:46 Remeron - PO 7.5 mg HS [facility] Administration Miscellaneous 1 each 07/21/18 22:00 07/24/18 21:42 Lidoderm Patch Removal MC 1 each DAILY@2200 [facility] Administration Montelukast Sodium 10 mg 07/21/18 22:00 07/24/18 21:42 Singulair - PO 10 mg HS [facility] Administration Oxycodone HCl 10 mg 07/23/18 00:59 07/25/18 09:39 Roxicodone - PO 10 mg Q6H PRN Administration PAIN LEVEL 6-10 Pantoprazole Sodium 40 mg 07/25/18 10:00 07/25/18 09:39 Protonix - PO 40 mg BID [facility] Administration Polyethylene Glycol 17 gm 07/23/18 18:30 07/25/18 09:39 Miralax (For Daily Use) - PO 17 gm DAILY [facility] Administration Tiotropium [place] 2 puff 07/22/18 10:00 07/25/18 10:08 Spiriva Respimat IH 2 puff DAILY [facility] Administration ASSESSMENT/PLAN: 57 year old female hx of back pain, unprovoked DVTs/PEs since 2014 s/p IVC filter treated with lovenox until 3 months ago, when discontinued due to frequent falling Bilateral Deep Vein Thrombosis: appears to be stable now, on lovenox -monitor for critical limb ischemia with checks for extremity warmth and pulses , pulses were dopplered today and were fine -if legs become ischemic, will need IR intervention to remove clot burden -coagulopathy workup was negative in past -f/u serotinin release assay -consider vascular re-evaluation -will need aggressive PT and Rehab Fever: 2/2 ESBL in the urine? -off abx currently and afebrile -will notify ID Pelvic Hematoma: appears stable and not increasing on new abd/pelvis CT, could be due to ? vasculitis -can continue anticoagulation Back pain: continue pain management per primary team Alex Silver, PGY2 Discussed w/ Dr. Clemons Visit type - Emergency Visit Emergency Visit: No - New Patient This patient is new to me today: No - Critical Care Critical Care patient: No
--- NOTE | 2018-07-25 15:22 | PN ---
Progress Note, Physician History of Present Illness: patient spiked a fever pain main issue now being transfused - Current Medication List Current Medications: Active Medications Acetaminophen (Tylenol -) 650 mg PO Q4H PRN PRN Reason: FEVER Last Admin: 07/25/18 13:22 Dose: 650 mg Atorvastatin Calcium (Lipitor -) 10 mg PO HS [facility] Last Admin: 07/24/18 21:42 Dose: 10 mg Budesonide/Formoterol Fumarate (Symbicort 160/4.5mcg -) 2 puff IH BID [facility] Last Admin: 07/25/18 10:08 Dose: 2 puff Calcium Carbonate/Cholecalciferol (Os-Ray 500+D -) 1 tab PO DAILY [facility] Last Admin: 07/25/18 09:39 Dose: 1 tab Cyclobenzaprine HCl (Flexeril -) 10 mg PO TID PRN PRN Reason: BACK PAIN Last Admin: 07/25/18 01:30 Dose: 10 mg Docusate Sodium (Colace -) 100 mg PO TID [facility] Last Admin: 07/25/18 13:22 Dose: 100 mg Enoxaparin Sodium 80 mg/ (Enoxaparin Sodium 50 mg) 130 mg SQ BID@0700,1900 [facility] Last Admin: 07/25/18 06:28 Dose: 130 mg Fenofibric Acid (Trilipix -) 135 mg PO DAILY [facility] Last Admin: 07/25/18 10:08 Dose: 135 mg Insulin Aspart (Novolog Vial Sliding Scale -) 1 vial SQ [facility]; Protocol Last Admin: 07/25/18 12:16 Dose: Not Given Insulin Detemir (Levemir Vial) 60 units SQ AM [facility] Last Admin: 07/25/18 06:28 Dose: Not Given Insulin Detemir (Levemir Vial) 45 units SQ HS [facility] Last Admin: 07/24/18 21:42 Dose: Not Given Lidocaine (Lidoderm Patch -) 1 patch TP DAILY [facility] Last Admin: 07/25/18 09:39 Dose: 1 patch Mirtazapine (Remeron -) 7.5 mg PO HS [facility] Last Admin: 07/24/18 21:46 Dose: 7.5 mg Miscellaneous (Lidoderm Patch Removal) 1 each MC DAILY@2200 [facility] Last Admin: 07/24/18 21:42 Dose: 1 each Montelukast Sodium (Singulair -) 10 mg PO HS [facility] Last Admin: 07/24/18 21:42 Dose: 10 mg Oxycodone HCl (Roxicodone -) 10 mg PO Q6H PRN PRN Reason: PAIN LEVEL 6-10 Last Admin: 07/25/18 09:39 Dose: 10 mg Pantoprazole Sodium (Protonix -) 40 mg PO BID [facility] Last Admin: 07/25/18 09:39 Dose: 40 mg Polyethylene Glycol (Miralax (For Daily Use) -) 17 gm PO DAILY [facility] Last Admin: 07/25/18 09:39 Dose: 17 gm Tiotropium [place] (Spiriva Respimat) 2 puff IH DAILY [facility] Last Admin: 07/25/18 10:08 Dose: 2 puff - Objective Vital Signs: Vital Signs Temperature 98.6 F 07/25/18 10:00 Pulse Rate 83 07/25/18 10:00 Respiratory Rate 20 07/25/18 10:00 Blood Pressure 130/73 07/25/18 10:00 O2 Sat by Pulse Oximetry (%) 95 07/25/18 09:00 Constitutional: Yes: No Distress, Calm Cardiovascular: Yes: Regular Rate and Rhythm Respiratory: Yes: Regular, CTA Bilaterally Gastrointestinal: Yes: Normal Bowel Sounds, Soft Musculoskeletal: Yes: WNL Extremities: Yes: Other Neurological: Yes: Alert, Oriented Psychiatric: Yes: Alert, Oriented Labs: CBC, BMP 07/25/18 06:00 07/25/18 06:00 INR, PTT INR 1.44 (0.83-1.09) H 07/21/18 05:30 Fibrinogen 415.0 mg/dL (238-498) D 07/18/18 05:30 Assessment/Plan Problem List - Problems (1) DVT of lower extremity, bilateral Code(s): I82.403 - ACUTE EMBOLISM AND THOMBOS UNSP DEEP VEINS OF LOW EXTRM, BI (2) Back pain Code(s): M54.9 - DORSALGIA, UNSPECIFIED Qualifiers: Back pain location: low back pain Chronicity: unspecified Back pain laterality: right Sciatica presence: unspecified whether sciatica present Qualified Code(s): M54.5 - Low back pain (3) Hyperglycemia Code(s): R73.9 - HYPERGLYCEMIA, UNSPECIFIED (4) Injury of right foot Code(s): S99.921A - UNSPECIFIED INJURY OF RIGHT FOOT, INITIAL ENCOUNTER Qualifiers: Encounter type: initial encounter Qualified Code(s): S99.921A - Unspecified injury of right foot, initial encounter (5) URI (upper respiratory infection) Code(s): J06.9 - ACUTE UPPER RESPIRATORY INFECTION, UNSPECIFIED 6 uti patients urine has esbl plan will conitnue to monitor if she spikes fever might consider restarting abx rest as per the team monitor h and h
[2018-07-25] MEDS ORDERED: SODIUM PHOSPHATE/NA BIPHOS 133 ML ENEMA RC ONE (16:30)
--- NOTE | 2018-07-25 19:44 | PN ---
Progress Note (short form) - Note Progress Note: patient seen and examined Did some PT today AFVSS Cor: RSR, No murmurs, No gallops Lungs: Clear to P&A Abd: Soft, Normal bowel sounds, No organomegaly Ext:3 + edema b/l labs/meds reviewed a/p 57 year old female, with a significant past medical history of chronic back pain , h/o unprovoked RLE DVT/PE (2014, treated with anticoagulation upunt2016 and then discontinued due to frequent falls, also with superficial vein thrombosis in 06/2017 on prophy lovenox up until 3 months ago but was discontinued due to falls. Thrombophilia w/u was negative in the past.HIT negative Imaging studies -- CT and u/s extensive DVT from ivc to iliacs to b/l lower extremities. Pelvic hematoma stable on 07/19 On lovenox will repeat pelvic and left thigh imaging discussed with Dr. Mary anemia--chronic disease? repeat pelvic imaging ESBL and proteus UTI --discussed with ID f/u chest CT Patient with extensive family h/o autoimmune disease--will request rheumatology consult discussed with patients niece and patient
[2018-07-25] MEDS: MIRTAZAPINE 15 MG TABLET (FP) PO SCH (22:27)
[2018-07-25] MEDS: MONTELUKAST NA 10 MG TABLET PO SCH (22:27)
[2018-07-25] MEDS: ATORVASTATIN CA 10 MG TABLET (FP) PO SCH (22:27)
[2018-07-25] MEDS: LIDOCAINE PATCH REMOVAL MC SCH (22:29)
--- NOTE | 2018-07-25 23:01 | PN ---
Progress Note, Physician - Current Medication List Current Medications: Active Medications Acetaminophen (Tylenol -) 650 mg PO Q4H PRN PRN Reason: FEVER Last Admin: 07/25/18 19:48 Dose: 650 mg Atorvastatin Calcium (Lipitor -) 10 mg PO [facility] Last Admin: 07/25/18 22:27 Dose: 10 mg Budesonide/Formoterol Fumarate (Symbicort 160/4.5mcg -) 2 puff IH BID [facility] Last Admin: 07/25/18 22:29 Dose: 2 puff Calcium Carbonate/Cholecalciferol (Os-Ray 500+D -) 1 tab PO DAILY [facility] Last Admin: 07/25/18 09:39 Dose: 1 tab Cyclobenzaprine HCl (Flexeril -) 10 mg PO TID PRN PRN Reason: BACK PAIN Last Admin: 07/25/18 01:30 Dose: 10 mg Docusate Sodium (Colace -) 100 mg PO TID [facility] Last Admin: 07/25/18 22:27 Dose: 100 mg Enoxaparin Sodium 80 mg/ (Enoxaparin Sodium 50 mg) 130 mg SQ BID@0700,1900 [facility] Last Admin: 07/25/18 18:03 Dose: 130 mg Fenofibric Acid (Trilipix -) 135 mg PO DAILY [facility] Last Admin: 07/25/18 10:08 Dose: 135 mg Insulin Aspart (Novolog Vial Sliding Scale -) 1 vial SQ [facility]; Protocol Last Admin: 07/25/18 22:29 Dose: Not Given Insulin Detemir (Levemir Vial) 60 units SQ AM [facility] Last Admin: 07/25/18 06:28 Dose: Not Given Insulin Detemir (Levemir Vial) 45 units SQ HS [facility] Last Admin: 07/25/18 22:28 Dose: 45 units Lidocaine (Lidoderm Patch -) 1 patch TP DAILY [facility] Last Admin: 07/25/18 09:39 Dose: 1 patch Mirtazapine (Remeron -) 7.5 mg PO [facility] Last Admin: 07/25/18 22:27 Dose: 7.5 mg Miscellaneous (Lidoderm Patch Removal) 1 each MC DAILY@2200 [facility] Last Admin: 07/25/18 22:29 Dose: 1 each Montelukast Sodium (Singulair -) 10 mg PO [facility] Last Admin: 07/25/18 22:27 Dose: 10 mg Oxycodone HCl (Roxicodone -) 10 mg PO Q6H PRN PRN Reason: PAIN LEVEL 6-10 Last Admin: 07/25/18 19:47 Dose: 10 mg Pantoprazole Sodium (Protonix -) 40 mg PO BID [facility] Last Admin: 07/25/18 22:27 Dose: 40 mg Polyethylene Glycol (Miralax (For Daily Use) -) 17 gm PO BID [facility] Last Admin: 07/25/18 22:27 Dose: 17 grams Tiotropium [place] (Spiriva Respimat) 2 puff IH DAILY [facility] Last Admin: 07/25/18 10:08 Dose: 2 puff - Objective Vital Signs: Vital Signs Temperature 99.9 F H 07/25/18 20:00 Pulse Rate 95 H 07/25/18 20:00 Respiratory Rate 20 07/25/18 20:00 Blood Pressure 126/71 07/25/18 20:00 O2 Sat by Pulse Oximetry (%) 95 07/25/18 09:00 Labs: CBC, BMP 07/25/18 06:00 07/25/18 06:00 INR, PTT INR 1.44 (0.83-1.09) H 07/21/18 05:30 Fibrinogen 415.0 mg/dL (238-498) D 07/18/18 05:30 Problem List - Problems (1) DVT of lower extremity, bilateral Code(s): I82.403 - ACUTE EMBOLISM AND THOMBOS UNSP DEEP VEINS OF LOW EXTRM, BI (2) Hematoma Code(s): T14.8XXA - OTHER INJURY OF UNSPECIFIED BODY REGION, INITIAL ENCOUNTER (3) UTI (urinary tract infection) Code(s): N39.0 - URINARY TRACT INFECTION, SITE NOT SPECIFIED (4) Back pain Code(s): M54.9 - DORSALGIA, UNSPECIFIED Qualifiers: Back pain location: low back pain Chronicity: unspecified Back pain laterality: right Sciatica presence: unspecified whether sciatica present Qualified Code(s): M54.5 - Low back pain (5) Diabetes Code(s): E11.9 - TYPE 2 DIABETES MELLITUS WITHOUT COMPLICATIONS (6) HLD (hyperlipidemia) Code(s): E78.5 - HYPERLIPIDEMIA, UNSPECIFIED (7) Neuropathy due to type 2 diabetes mellitus Code(s): E11.40 - TYPE 2 DIABETES MELLITUS WITH DIABETIC NEUROPATHY, UNSP (8) Obesity (BMI 30-39.9) Code(s): E66.9 - OBESITY, UNSPECIFIED (9) ARF (acute renal failure) Code(s): N17.9 - ACUTE KIDNEY FAILURE, UNSPECIFIED (10) Asthma Code(s): J45.909 - UNSPECIFIED ASTHMA, UNCOMPLICATED (11) Anemia Code(s): D64.9 - ANEMIA, UNSPECIFIED
[2018-07-26] MEDS: ACETAMINOPHEN 325 MG TABLET (FP) PO PRN ×2 (04:30→16:46)
[2018-07-26] MEDS: CYCLOBENZAPRINE HCL 10 MG TABLET (FP) PO PRN ×2 (04:30→22:26)
[2018-07-26] MEDS ORDERED: ENOXAPARIN NA (PORCINE) 80 MG/0.8 ML DISP.SYRIN SQ ONE ×2 (06:03→17:09)
[2018-07-26] MEDS ORDERED: ENOXAPARIN NA (PORCINE) 60 MG/0.6 ML DISP.SYRIN SQ ONE ×2 (06:03→17:09)
[2018-07-26] MEDS: INSULIN SLIDING SCALE (NOVOLOG) 1 VIAL SQ SCH ×4 (06:18→22:10)
[2018-07-26] MEDS: INSULIN (LEVEMIR) 100 UNITS/ML UNITS SQ SCH ×2 (06:18→22:15)
[2018-07-26] MEDS: DOCUSATE SODIUM 100 MG CAPSULE (FP) PO SCH ×3 (06:31→22:10)
[2018-07-26] MEDS: ENOXAPARIN SQ SCH ×3 (06:31→22:23)
[2018-07-26 08:25] LABS: BASO % 0.8 % (0-2.0); EOS % 1.7 % (0-4.5); HEMATOCRIT 30.5 % (32.4-45.2); HEMOGLOBIN 9.9 GM/dL (10.7-15.3); LYMPH % 15.2 % (8-40); MCH 28.8 pg (25.7-33.7); MCHC 32.5 g/dl (32.0-36.0); MEAN CELL VOLUME 88.6 fl (80-96); MEAN PLT VOLUME 9.8 fl (7.5-11.1); MONO % 8.8 % (3.8-10.2); NEUT % 73.5 % (42.8-82.8); PLATELET COUNT 291 K/MM3 (134-434); RBC 3.45 M/mm3 (3.60-5.2); RDW 14.9 % (11.6-15.6); WHITE BLOOD COUNT 9.2 K/mm3 (4.0-10.0)
[2018-07-26 08:28] LABS: ALBUMIN 2.4 g/dl (3.4-5.0); ALK PHOS 101 U/L (45-117); ANION GAP 6 MMOL/L (8-16); BILIRUBIN,TOTAL 0.8 mg/dL (0.2-1); BLOOD UREA NITROGEN 15 mg/dL (7-18); CALCIUM 8.9 mg/dL (8.5-10.1); CHLORIDE 100 mmol/L (98-107); CO2 30 mmol/L (21-32); CREATININE 0.8 mg/dL (0.55-1.3); GLUCOSE,RANDOM 126 mg/dL (74-106); POTASSIUM 3.9 mmol/L (3.5-5.1); SGOT/AST 25 U/L (15-37); SGPT/ALT 19 U/L (13-61); SODIUM 137 mmol/L (136-145); TOT PROT 6.5 g/dl (6.4-8.2)
[2018-07-26] MEDS: POLYETHYLENE GLYCOL 3350 119 GM BTL PO SCH ×2 (09:40→22:11)
[2018-07-26] MEDS: LIDOCAINE 5% TOPICAL PATCH TP SCH (09:40)
[2018-07-26] MEDS: CALCIUM 500MG/VIT-D 200 UNITS COMBO TABLET (FP) PO SCH (09:41)
[2018-07-26] MEDS: PANTOPRAZOLE 40 MG TABLET (FP) PO SCH ×2 (09:41→22:10)
[2018-07-26] MEDS: TIOTROPIUM BROMIDE 2.5 MCG (SPIRIVA) RESPIMAT INHALER IH SCH (09:42)
[2018-07-26] MEDS: BUDESONIDE/FORMETEROL FUMARATE 160/4.5 mcg INHALER IH SCH ×2 (09:43→22:16)
[2018-07-26] MEDS: FENOFIBRIC ACID 135 MG CAP PO SCH (10:14)
--- NOTE | 2018-07-26 13:53 | PN ---
Progress Note (short form) - Note Progress Note: Still with LE pain Left>right. No CP or SOB. No acute events overnight. Intake & Output 07/23/18 07/24/18 07/25/18 07/26/18 23:59 23:59 23:59 23:59 Intake Total 770 870 670 250 Balance 770 870 670 250 Last Vital Signs Temp Pulse Resp BP Pulse Ox 98.8 F 82 20 110/75 95 07/26/18 10:00 07/26/18 10:00 07/26/18 10:00 07/26/18 10:00 07/26/18 09:00 Active Medications Acetaminophen (Tylenol -) 650 mg PO Q4H PRN PRN Reason: FEVER Last Admin: 07/26/18 04:30 Dose: 650 mg Atorvastatin Calcium (Lipitor -) 10 mg PO HS [facility] Last Admin: 07/25/18 22:27 Dose: 10 mg Budesonide/Formoterol Fumarate (Symbicort 160/4.5mcg -) 2 puff IH BID [facility] Last Admin: 07/26/18 09:43 Dose: 2 puff Calcium Carbonate/Cholecalciferol (Os-Ray 500+D -) 1 tab PO DAILY [facility] Last Admin: 07/26/18 09:41 Dose: 1 tab Cyclobenzaprine HCl (Flexeril -) 10 mg PO TID PRN PRN Reason: BACK PAIN Last Admin: 07/26/18 04:30 Dose: 10 mg Docusate Sodium (Colace -) 100 mg PO TID [facility] Last Admin: 07/26/18 06:31 Dose: 100 mg Enoxaparin Sodium 80 mg/ (Enoxaparin Sodium 50 mg) 130 mg SQ BID@0700,1900 [facility] Last Admin: 07/26/18 06:31 Dose: 130 mg Fenofibric Acid (Trilipix -) 135 mg PO DAILY [facility] Last Admin: 07/26/18 10:14 Dose: 135 mg Insulin Aspart (Novolog Vial Sliding Scale -) 1 vial SQ ACHS [facility]; Protocol Last Admin: 07/26/18 12:10 Dose: Not Given Insulin Detemir (Levemir Vial) 60 units SQ AM [facility] Last Admin: 07/26/18 06:18 Dose: Not Given Insulin Detemir (Levemir Vial) 45 units SQ HS [facility] Last Admin: 07/25/18 22:28 Dose: 45 units Lidocaine (Lidoderm Patch -) 1 patch TP DAILY [facility] Last Admin: 07/26/18 09:40 Dose: 1 patch Mirtazapine (Remeron -) 7.5 mg PO HS [facility] Last Admin: 07/25/18 22:27 Dose: 7.5 mg Miscellaneous (Lidoderm Patch Removal) 1 each MC DAILY@2200 [facility] Last Admin: 07/25/18 22:29 Dose: 1 each Montelukast Sodium (Singulair -) 10 mg PO HS [facility] Last Admin: 07/25/18 22:27 Dose: 10 mg Pantoprazole Sodium (Protonix -) 40 mg PO BID [facility] Last Admin: 07/26/18 09:41 Dose: 40 mg Polyethylene Glycol (Miralax (For Daily Use) -) 17 gm PO BID [facility] Last Admin: 07/26/18 09:40 Dose: 17 grams Tiotropium [place] (Spiriva Respimat) 2 puff IH DAILY [facility] Last Admin: 07/26/18 09:42 Dose: 2 puff Constitutional: Yes: NAD Eyes: Yes: WNL HENT: Yes: WNL Neck: Yes: WNL Cardiovascular: Yes: Regular Rate and Rhythm, S1, S2 Respiratory: Yes: Diminished Gastrointestinal: Yes: Normal Bowel Sounds, Soft, Abdomen, Obese Extremities: Yes: WNL Edema: Yes Labs: Laboratory Results - last 24 hr 07/25/18 07/25/18 07/25/18 06:00 16:42 22:25 WBC RBC Hgb Hct MCV MCH MCHC RDW Plt Count MPV Absolute Neuts (auto) Neutrophils % Lymphocytes % Monocytes % Eosinophils % Basophils % Nucleated RBC % PTT (Actin FS) Sodium Potassium Chloride Carbon Dioxide Anion Gap BUN Creatinine Creat Clearance w eGFR POC Glucometer 116 149 Random Glucose Calcium Total Bilirubin AST ALT Alkaline Phosphatase Total Protein Albumin Blood Type O POSITIVE Antibody Screen Negative Crossmatch See Detail 07/26/18 07/26/18 07/26/18 06:00 06:00 06:00 WBC 9.2 RBC 3.45 L Hgb 9.9 L Hct 30.5 L D MCV 88.6 MCH 28.8 MCHC 32.5 RDW 14.9 Plt Count 291 MPV 9.8 Absolute Neuts (auto) 6.7 Neutrophils % 73.5 Lymphocytes % 15.2 Monocytes % 8.8 Eosinophils % 1.7 Basophils % 0.8 Nucleated RBC % 0 PTT (Actin FS) 38.9 H Sodium 137 Potassium 3.9 Chloride 100 Carbon Dioxide 30 Anion Gap 6 L BUN 15 Creatinine 0.8 Creat Clearance w eGFR 73.42 POC Glucometer Random Glucose 126 H Calcium 8.9 Total Bilirubin 0.8 AST 25 ALT 19 Alkaline Phosphatase 101 Total Protein 6.5 Albumin 2.4 L Blood Type Antibody Screen Crossmatch 07/26/18 07/26/18 06:06 11:33 WBC RBC Hgb Hct MCV MCH MCHC RDW Plt Count MPV Absolute Neuts (auto) Neutrophils % Lymphocytes % Monocytes % Eosinophils % Basophils % Nucleated RBC % PTT (Actin FS) Sodium Potassium Chloride Carbon Dioxide Anion Gap BUN Creatinine Creat Clearance w eGFR POC Glucometer 88 94 Random Glucose Calcium Total Bilirubin AST ALT Alkaline Phosphatase Total Protein Albumin Blood Type Antibody Screen Crossmatch Problem List - Problems (1) Anemia Code(s): D64.9 - ANEMIA, UNSPECIFIED (2) Asthma Code(s): J45.909 - UNSPECIFIED ASTHMA, UNCOMPLICATED (3) DVT of lower extremity, bilateral Code(s): I82.403 - ACUTE EMBOLISM AND THOMBOS UNSP DEEP VEINS OF LOW EXTRM, BI (4) Hematoma Code(s): T14.8XXA - OTHER INJURY OF UNSPECIFIED BODY REGION, INITIAL ENCOUNTER (5) Chronic pain Code(s): G89.29 - OTHER CHRONIC PAIN (6) GERD (gastroesophageal reflux disease) Code(s): K21.9 - GASTRO-ESOPHAGEAL REFLUX DISEASE WITHOUT ESOPHAGITIS Qualifiers: Esophagitis presence: without esophagitis Qualified Code(s): K21.9 - Gastro -esophageal reflux disease without esophagitis (7) HLD (hyperlipidemia) Code(s): E78.5 - HYPERLIPIDEMIA, UNSPECIFIED (8) HTN (hypertension) Code(s): I10 - ESSENTIAL (PRIMARY) HYPERTENSION (9) DVT (deep venous thrombosis) Code(s): I82.409 - ACUTE EMBOLISM AND THOMBOS UNSP DEEP VN UNSP LOWER EXTREMITY Qualifiers: DVT location: lower extremity Chronicity: unspecified Laterality: right Assessment/Plan Acute Blood Loss Anemia Acute Bilateral Extensive DVTs h/o IVC filter Acute Kidney Injury Asthma Anemia Thrombocytopenia - monitor H/H - continue anticoagulation with Lovenox BID - monitor urine output, creatinine - O2 to keep SpO2 >90% - inhaled bronchodilators as needed - Pain control - Rheumatology evaluation has been called Dr Lr
--- NOTE | 2018-07-26 15:03 | PN.GI ---
GI Progress Note Subjective: no active bleeding still with bilateral leg swelling, no melena and rectal bleeding - Objective Vital Signs: Vital Signs Temperature 98.6 F 07/26/18 14:00 Pulse Rate 84 07/26/18 14:00 Respiratory Rate 20 07/26/18 14:00 Blood Pressure 124/75 07/26/18 14:00 O2 Sat by Pulse Oximetry (%) 95 07/26/18 09:00 Constitutional: Well Nourished Eyes: Yes: Conjunctiva Clear HENT: Yes: Atraumatic Neck: Yes: Supple Cardiovascular: Yes: Regular Rate and Rhythm Respiratory: Yes: CTA Bilaterally ...Palpate: Yes: Soft. No: Firm/Rigid, Guarding, Hepatomegaly, Mass, Pulsatile Mass, Splenomegaly Labs: CBC, BMP 07/26/18 06:00 07/26/18 06:00 INR, PTT INR 1.44 (0.83-1.09) H 07/21/18 05:30 Fibrinogen 415.0 mg/dL (238-498) D 07/18/18 05:30 Home Medications Medication Instructions Recorded Albuterol Sulfate Inhaler - 1 - 2 inh IH Q4H PRN #0 inh 04/02/14 [Ventolin HFA Inhaler -] metFORMIN HCL [Metformin HCl] 500 mg PO DAILY 03/03/15 Lisinopril [Prinivil] 20 mg PO DAILY 08/24/16 Mirtazapine [Remeron -] 7.5 mg PO HS 08/24/16 Insulin Glargine,Hum.rec.anlog 60 unit SQ HS 11/23/16 [Basaglar Kwikpen U-100] Calcium Carbonate/Vitamin D3 1 each PO DAILY 06/26/17 [Calcium 600-Vit D3 400 Tablet] Fenofibrate Nanocrystallized 145 mg PO DAILY 06/26/17 [Fenofibrate] Omeprazole 40 mg PO DAILY 06/26/17 Atorvastatin Ca [Lipitor] 10 mg PO HS #30 tablet 07/04/17 Budesonide/Formeterol Fumarate 2 puff IH BID #1 inhaler 07/04/17 [SYMBICORT 160/4.5mcg -] Montelukast Na [Singulair -] 10 mg PO HS #30 tablet 07/04/17 Tiotropium [place] [Spiriva] 1 puff IH DAILY #1 inh 07/04/17 Docusate Sodium [Colace] 100 mg PO TID #90 capsule 09/04/17 Diclofenac Sodium [Voltaren] 2 gm TP TID PRN #3 tube 02/19/18 Ergocalciferol [Vitamin D2] 50,000 unit PO Q7D@1000 #4 capsule 03/25/18 Guaifenesin [Mucinex -] 600 mg PO BID PRN #28 tablet.er 03/25/18 Insulin (Novolog) [Novolog -] 5 units SQ TIDAC 05/23/18 Cyclobenzaprine HCl [Flexeril -] 10 mg PO TID PRN #90 tablet 06/23/18 Oxycodone HCl/Acetaminophen 1 each PO BID PRN #60 tablet MDD 2 06/23/18 [Endocet 10-325 mg Tablet] Lidocaine 5% Patch [Lidoderm Patch 1 patch TP DAILY #7 patch 07/15/18 -] Problem List - Problems (1) Anemia Assessment/Plan: seccondary to pelvic hematoma R> hematology and vascular surgery follow-up Code(s): D64.9 - ANEMIA, UNSPECIFIED (2) Constipation Assessment/Plan: opiod induced R> Relistor Code(s): K59.00 - CONSTIPATION, UNSPECIFIED
[2018-07-26] MEDS: Methylnaltrexone Bromide 12 MG/0.6 ML KIT SQ SCH (15:21)
--- NOTE | 2018-07-26 17:15 | PN ---
Progress Note, Physician History of Present Illness: Pt seen and examined, notes reviewed, labs/imaging results noted. She is alert but c/o b/l LE pain. Febrile. No acute distress. - Current Medication List Current Medications: Active Medications Acetaminophen (Tylenol -) 650 mg PO Q4H PRN PRN Reason: FEVER Last Admin: 07/26/18 16:46 Dose: 650 mg Atorvastatin Calcium (Lipitor -) 10 mg PO HS [facility] Last Admin: 07/25/18 22:27 Dose: 10 mg Budesonide/Formoterol Fumarate (Symbicort 160/4.5mcg -) 2 puff IH BID [facility] Last Admin: 07/26/18 09:43 Dose: 2 puff Calcium Carbonate/Cholecalciferol (Os-Ray 500+D -) 1 tab PO DAILY [facility] Last Admin: 07/26/18 09:41 Dose: 1 tab Cyclobenzaprine HCl (Flexeril -) 10 mg PO TID PRN PRN Reason: BACK PAIN Last Admin: 07/26/18 04:30 Dose: 10 mg Docusate Sodium (Colace -) 100 mg PO TID [facility] Last Admin: 07/26/18 14:44 Dose: 100 mg Enoxaparin Sodium 80 mg/ (Enoxaparin Sodium 50 mg) 130 mg SQ BID@0700,1900 [facility] Last Admin: 07/26/18 06:31 Dose: 130 mg Fenofibric Acid (Trilipix -) 135 mg PO DAILY [facility] Last Admin: 07/26/18 10:14 Dose: 135 mg Ertapenem 1 gm/ Sodium (Chloride) 50 mls @ 100 mls/hr IVPB DAILY [facility] Insulin Aspart (Novolog Vial Sliding Scale -) 1 vial SQ ACHS [facility]; Protocol Last Admin: 07/26/18 16:48 Dose: Not Given Insulin Detemir (Levemir Vial) 60 units SQ AM [facility] Last Admin: 07/26/18 06:18 Dose: Not Given Insulin Detemir (Levemir Vial) 45 units SQ HS [facility] Last Admin: 07/25/18 22:28 Dose: 45 units Lidocaine (Lidoderm Patch -) 1 patch TP DAILY [facility] Last Admin: 07/26/18 09:40 Dose: 1 patch Methylnaltrexone [place] (Relistor -) 12 mg SQ DAILY [facility] Last Admin: 07/26/18 15:21 Dose: 12 mg Mirtazapine (Remeron -) 7.5 mg PO [facility] Last Admin: 07/25/18 22:27 Dose: 7.5 mg Miscellaneous (Lidoderm Patch Removal) 1 each MC DAILY@2200 [facility] Last Admin: 07/25/18 22:29 Dose: 1 each Montelukast Sodium (Singulair -) 10 mg PO [facility] Last Admin: 07/25/18 22:27 Dose: 10 mg Pantoprazole Sodium (Protonix -) 40 mg PO BID [facility] Last Admin: 07/26/18 09:41 Dose: 40 mg Polyethylene Glycol (Miralax (For Daily Use) -) 17 gm PO BID [facility] Last Admin: 07/26/18 09:40 Dose: 17 grams Tiotropium [place] (Spiriva Respimat) 2 puff IH DAILY [facility] Last Admin: 07/26/18 09:42 Dose: 2 puff - Objective Vital Signs: Vital Signs Temperature 98.6 F 07/26/18 14:00 Pulse Rate 84 07/26/18 14:00 Respiratory Rate 20 07/26/18 14:00 Blood Pressure 124/75 07/26/18 14:00 O2 Sat by Pulse Oximetry (%) 95 07/26/18 09:00 Constitutional: Yes: No Distress Neck: Yes: Supple Cardiovascular: Yes: Regular Rate and Rhythm Respiratory: Yes: CTA Bilaterally Gastrointestinal: Yes: Normal Bowel Sounds, Soft, Abdomen, Obese Genitourinary: Yes: WNL Edema: Yes Edema: LLE: 2+, RLE: 2+ Integumentary: Yes: WNL Neurological: Yes: Alert Labs: CBC, BMP 07/26/18 06:00 07/26/18 06:00 INR, PTT INR 1.44 (0.83-1.09) H 07/21/18 05:30 Fibrinogen 415.0 mg/dL (238-498) D 07/18/18 05:30 Microbiology 07/21/18 11:30 Blood - Peripheral Venous Blood Culture - Final NO GROWTH AFTER 5 DAYS INCUBATION 07/21/18 09:40 Blood - Peripheral Venous Blood Culture - Final NO GROWTH AFTER 5 DAYS INCUBATION 07/16/18 19:45 Blood - Peripheral Venous Blood Culture - Final NO GROWTH AFTER 5 DAYS INCUBATION 07/16/18 19:30 Blood - Peripheral Venous Blood Culture - Final NO GROWTH AFTER 5 DAYS INCUBATION 07/18/18 17:15 Urine - Urine Kuhn Urine Culture - Final Escherichia Coli 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[employer] - ....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 Cat Scan: Report Reviewed Problem List - Problems (1) ARF (acute renal failure) Code(s): N17.9 - ACUTE KIDNEY FAILURE, UNSPECIFIED (2) Anemia Code(s): D64.9 - ANEMIA, UNSPECIFIED (3) DVT of lower extremity, bilateral Code(s): I82.403 - ACUTE EMBOLISM AND THOMBOS UNSP DEEP VEINS OF LOW EXTRM, BI (4) Hematoma Code(s): T14.8XXA - OTHER INJURY OF UNSPECIFIED BODY REGION, INITIAL ENCOUNTER (5) UTI (urinary tract infection) Code(s): N39.0 - URINARY TRACT INFECTION, SITE NOT SPECIFIED (6) Hyperglycemia Code(s): R73.9 - HYPERGLYCEMIA, UNSPECIFIED (7) Anxiety and depression Code(s): F41.8 - OTHER SPECIFIED ANXIETY DISORDERS (8) Diabetes Code(s): E11.9 - TYPE 2 DIABETES MELLITUS WITHOUT COMPLICATIONS (9) HLD (hyperlipidemia) Code(s): E78.5 - HYPERLIPIDEMIA, UNSPECIFIED (10) HTN (hypertension) Code(s): I10 - ESSENTIAL (PRIMARY) HYPERTENSION (11) Obesity (BMI 30-39.9) Code(s): E66.9 - OBESITY, UNSPECIFIED Assessment/Plan Fever Leukoyctosis b/l LE extensive DVT ESBL+ UTI Pelvic hematoma Rt hydronephrosis/hydroureter Hx of DVT/PE Anemia -- fever may be due to UTI in addition to DVT/hematoma -- will restart antibiotics, continue monitor temps/wbc, H/H -- imaging results noted -- Hematology following, Vascular evaluation
[2018-07-26] MEDS: ERTAPENEM SODIUM 1 GM in SODIUM CHLORIDE 50 ML IVPB SCH (17:37)
--- NOTE | 2018-07-26 18:05 | PN ---
Progress Note (short form) - Note Progress Note: Patient seen in follow up. No new complaints. Ongoing lower extremity pain. Tearful and emotional. No significant events overnight. Low grade luz maria early this am. Inpatient Meds reviewed. Current Medications Generic Name Dose Route Start Last Admin Trade Name Freq PRN Reason Stop Dose Admin Acetaminophen 650 mg 07/22/18 15:49 07/26/18 16:46 Tylenol - PO 650 mg Q4H PRN Administration FEVER Atorvastatin Calcium 10 mg 07/21/18 22:00 07/25/18 22:27 Lipitor - PO 10 mg HS [facility] Administration Budesonide/Formoterol Fumarate 2 puff 07/21/18 22:00 07/26/18 09:43 Symbicort 160/4.5mcg - IH 2 puff BID [facility] Administration Calcium Carbonate/Cholecalciferol 1 tab 07/22/18 10:00 07/26/18 09:41 Os-Ray 500+D - PO 1 tab DAILY [facility] Administration Cyclobenzaprine HCl 10 mg 07/21/18 21:12 07/26/18 04:30 Flexeril - PO 10 mg TID PRN Administration BACK PAIN Docusate Sodium 100 mg 07/21/18 22:00 07/26/18 14:44 Colace - PO 100 mg TID [facility] Administration Enoxaparin Sodium 80 mg/ 130 mg 07/21/18 19:00 07/26/18 06:31 Enoxaparin Sodium 50 mg SQ 130 mg BID@0700,1900 [facility] Administration Fenofibric Acid 135 mg 07/22/18 10:00 07/26/18 10:14 Trilipix - PO 135 mg DAILY [facility] Administration Ertapenem 1 gm/ Sodium 50 mls @ 100 mls/hr 07/26/18 17:15 07/26/18 17:37 Chloride IVPB 100 mls/hr DAILY [facility] Administration Insulin Aspart 1 vial 07/21/18 22:00 07/26/18 16:48 Novolog Vial Sliding Scale - SQ Not Given ACHS [facility] Protocol Insulin Detemir 60 units 07/22/18 07:00 07/26/18 06:18 Levemir Vial SQ Not Given AM [facility] Insulin Detemir 45 units 07/21/18 22:00 07/25/18 22:28 Levemir Vial SQ 45 units HS [facility] Administration Lidocaine 1 patch 07/22/18 10:00 07/26/18 09:40 Lidoderm Patch - TP 1 patch DAILY [facility] Administration Methylnaltrexone [place] 12 mg 07/26/18 16:00 07/26/18 15:21 Relistor - SQ 12 mg DAILY [facility] Administration Mirtazapine 7.5 mg 07/21/18 22:00 07/25/18 22:27 Remeron - PO 7.5 mg HS [facility] Administration Miscellaneous 1 each 07/21/18 22:00 07/25/18 22:29 Lidoderm Patch Removal MC 1 each DAILY@2200 [facility] Administration Montelukast Sodium 10 mg 07/21/18 22:00 07/25/18 22:27 Singulair - PO 10 mg HS [facility] Administration Pantoprazole Sodium 40 mg 07/25/18 10:00 07/26/18 09:41 Protonix - PO 40 mg BID [facility] Administration Polyethylene Glycol 17 gm 07/25/18 22:00 07/26/18 09:40 Miralax (For Daily Use) - PO 17 grams BID [facility] Administration Tiotropium [place] 2 puff 07/22/18 10:00 07/26/18 09:42 Spiriva Respimat IH 2 puff DAILY [facility] Administration On Examination: Last Vital Signs Temp Pulse Resp BP Pulse Ox 98.6 F 84 20 124/75 95 07/26/18 14:00 07/26/18 14:00 07/26/18 14:00 07/26/18 14:00 07/26/18 09:00 General: In no acute distress, lying supine in bed. Extremities: No pallor or icterus. No pedal edema. No palpable lymphadenopathy. Bilateral lower extremity swelling - legs tender. CVS: S1, S2, regular, no gallop or murmur. Chest: good air entry bilaterally, clear Abdomen: Non-distended, non-tender, no palpable organomegaly. Psychiatric: Emotionally labile, tearful. Neuro: Alert, oriented, non-focal. Labs: CBC, BMP 07/26/18 06:00 07/26/18 06:00 Assessment. Spontaneous extensive bilateral lower extremity venous thrombosis - symptomatic. Concern yesterday about possible pelvic hematoma seen on CT, but Hb stable despite ongoing anticoagulation (LMWH). Repeat CT scan last night - stable pelvic sidewall hematoma. IVC filter in situ. Empiric antibiotics started for low-grade fever, - ESBL urine 3/22 - noted. Continue anticoagulation. Monitor H/H. Underlying reason for hypercoagulability remains obscure - occult malignancy remains a possibility. Will continue to follow.
--- NOTE | 2018-07-26 21:54 | PN ---
Progress Note, Physician - Current Medication List Current Medications: Active Medications Acetaminophen (Tylenol -) 650 mg PO Q4H PRN PRN Reason: FEVER Last Admin: 07/26/18 16:46 Dose: 650 mg Atorvastatin Calcium (Lipitor -) 10 mg PO HS [facility] Last Admin: 07/25/18 22:27 Dose: 10 mg Budesonide/Formoterol Fumarate (Symbicort 160/4.5mcg -) 2 puff IH BID [facility] Last Admin: 07/26/18 09:43 Dose: 2 puff Calcium Carbonate/Cholecalciferol (Os-Ray 500+D -) 1 tab PO DAILY [facility] Last Admin: 07/26/18 09:41 Dose: 1 tab Cyclobenzaprine HCl (Flexeril -) 10 mg PO TID PRN PRN Reason: BACK PAIN Last Admin: 07/26/18 04:30 Dose: 10 mg Docusate Sodium (Colace -) 100 mg PO TID [facility] Last Admin: 07/26/18 14:44 Dose: 100 mg Enoxaparin Sodium 80 mg/ (Enoxaparin Sodium 50 mg) 130 mg SQ BID@0700,1900 [facility] Last Admin: 07/26/18 06:31 Dose: 130 mg Fenofibric Acid (Trilipix -) 135 mg PO DAILY [facility] Last Admin: 07/26/18 10:14 Dose: 135 mg Ertapenem 1 gm/ Sodium (Chloride) 50 mls @ 100 mls/hr IVPB DAILY [facility] Last Admin: 07/26/18 17:37 Dose: 100 mls/hr Insulin Aspart (Novolog Vial Sliding Scale -) 1 vial SQ ACHS [facility]; Protocol Last Admin: 07/26/18 16:48 Dose: Not Given Insulin Detemir (Levemir Vial) 60 units SQ AM [facility] Last Admin: 07/26/18 06:18 Dose: Not Given Insulin Detemir (Levemir Vial) 45 units SQ HS [facility] Last Admin: 07/25/18 22:28 Dose: 45 units Lidocaine (Lidoderm Patch -) 1 patch TP DAILY [facility] Last Admin: 07/26/18 09:40 Dose: 1 patch Methylnaltrexone [place] (Relistor -) 12 mg SQ DAILY [facility] Last Admin: 07/26/18 15:21 Dose: 12 mg Mirtazapine (Remeron -) 7.5 mg PO HS [facility] Last Admin: 07/25/18 22:27 Dose: 7.5 mg Miscellaneous (Lidoderm Patch Removal) 1 each MC DAILY@2200 [facility] Last Admin: 07/25/18 22:29 Dose: 1 each Montelukast Sodium (Singulair -) [address] [facility] Last Admin: 07/25/18 22:27 Dose: 10 mg Pantoprazole Sodium (Protonix -) 40 mg PO BID [facility] Last Admin: 07/26/18 09:41 Dose: 40 mg Polyethylene Glycol (Miralax (For Daily Use) -) 17 gm PO BID [facility] Last Admin: 07/26/18 09:40 Dose: 17 grams Tiotropium [place] (Spiriva Respimat) 2 puff IH DAILY [facility] Last Admin: 07/26/18 09:42 Dose: 2 puff - Objective Vital Signs: Vital Signs Temperature 101.1 F H 07/26/18 18:23 Pulse Rate 85 07/26/18 18:23 Respiratory Rate 20 07/26/18 18:23 Blood Pressure 120/80 07/26/18 18:23 O2 Sat by Pulse Oximetry (%) 95 07/26/18 09:00 Labs: CBC, BMP 07/26/18 06:00 07/26/18 06:00 INR, PTT INR 1.44 (0.83-1.09) H 07/21/18 05:30 Fibrinogen 415.0 mg/dL (238-498) D 07/18/18 05:30 Problem List - Problems (1) DVT of lower extremity, bilateral Code(s): I82.403 - ACUTE EMBOLISM AND THOMBOS UNSP DEEP VEINS OF LOW EXTRM, BI (2) Hematoma Code(s): T14.8XXA - OTHER INJURY OF UNSPECIFIED BODY REGION, INITIAL ENCOUNTER (3) UTI (urinary tract infection) Code(s): N39.0 - URINARY TRACT INFECTION, SITE NOT SPECIFIED (4) Back pain Code(s): M54.9 - DORSALGIA, UNSPECIFIED Qualifiers: Back pain location: low back pain Chronicity: unspecified Back pain laterality: right Sciatica presence: unspecified whether sciatica present Qualified Code(s): M54.5 - Low back pain (5) Diabetes Code(s): E11.9 - TYPE 2 DIABETES MELLITUS WITHOUT COMPLICATIONS (6) HLD (hyperlipidemia) Code(s): E78.5 - HYPERLIPIDEMIA, UNSPECIFIED (7) Neuropathy due to type 2 diabetes mellitus Code(s): E11.40 - TYPE 2 DIABETES MELLITUS WITH DIABETIC NEUROPATHY, UNSP (8) Obesity (BMI 30-39.9) Code(s): E66.9 - OBESITY, UNSPECIFIED (9) ARF (acute renal failure) Code(s): N17.9 - ACUTE KIDNEY FAILURE, UNSPECIFIED (10) Asthma Code(s): J45.909 - UNSPECIFIED ASTHMA, UNCOMPLICATED (11) Anemia Code(s): D64.9 - ANEMIA, UNSPECIFIED
[2018-07-26] MEDS: ATORVASTATIN CA 10 MG TABLET (FP) PO SCH (22:10)
[2018-07-26] MEDS: MIRTAZAPINE 15 MG TABLET (FP) PO SCH (22:10)
[2018-07-26] MEDS: MONTELUKAST NA 10 MG TABLET PO SCH (22:10)
[2018-07-26] MEDS: LIDOCAINE PATCH REMOVAL MC SCH (22:15)
[2018-07-27] MEDS: ACETAMINOPHEN 325 MG TABLET (FP) PO PRN ×2 (00:19→10:20)
[2018-07-27] MEDS ORDERED: oxyCODONE HCL 5 MG TABLET PO ONE (03:45)
[2018-07-27] MEDS ORDERED: ENOXAPARIN NA (PORCINE) 80 MG/0.8 ML DISP.SYRIN SQ ONE ×2 (05:57→18:39)
[2018-07-27] MEDS ORDERED: ENOXAPARIN NA (PORCINE) 60 MG/0.6 ML DISP.SYRIN SQ ONE ×2 (05:57→18:39)
[2018-07-27] MEDS: INSULIN SLIDING SCALE (NOVOLOG) 1 VIAL SQ SCH ×4 (06:17→22:23)
[2018-07-27] MEDS: INSULIN (LEVEMIR) 100 UNITS/ML UNITS SQ SCH ×2 (06:17→22:37)
[2018-07-27] MEDS: ENOXAPARIN SQ SCH ×2 (06:18→18:41)
[2018-07-27] MEDS: DOCUSATE SODIUM 100 MG CAPSULE (FP) PO SCH ×3 (06:18→22:20)
[2018-07-27] MEDS ORDERED: INSULIN SLIDING SCALE (NOVOLOG) 1 VIAL SQ ONE (06:58)
[2018-07-27] MEDS ORDERED: INSULIN (LEVEMIR) 100 UNITS/ML UNITS SQ ONE (06:58)
[2018-07-27 08:15] LABS: BASO % 0.7 % (0-2.0); HEMATOCRIT 28.5 % (32.4-45.2); HEMOGLOBIN 9.3 GM/dL (10.7-15.3); MCH 28.9 pg (25.7-33.7); MCHC 32.6 g/dl (32.0-36.0); MEAN CELL VOLUME 88.8 fl (80-96); MEAN PLT VOLUME 9.3 fl (7.5-11.1); MONO % 8.5 % (3.8-10.2); NEUT % 72.8 % (42.8-82.8); PLATELET COUNT 293 K/MM3 (134-434); RBC 3.21 M/mm3 (3.60-5.2); RDW 15.2 % (11.6-15.6); WHITE BLOOD COUNT 7.7 K/mm3 (4.0-10.0)
[2018-07-27 08:39] LABS: ALBUMIN 2.4 g/dl (3.4-5.0); ALK PHOS 109 U/L (45-117); ANION GAP 6 MMOL/L (8-16); BILIRUBIN,TOTAL 0.6 mg/dL (0.2-1); BLOOD UREA NITROGEN 16 mg/dL (7-18); CALCIUM 8.4 mg/dL (8.5-10.1); CHLORIDE 101 mmol/L (98-107); CO2 30 mmol/L (21-32); CREATININE 0.8 mg/dL (0.55-1.3); GLUCOSE,RANDOM 96 mg/dL (74-106); POTASSIUM 3.7 mmol/L (3.5-5.1); SGOT/AST 34 U/L (15-37); SGPT/ALT 21 U/L (13-61); SODIUM 137 mmol/L (136-145); TOT PROT 6.2 g/dl (6.4-8.2)
[2018-07-27] MEDS ORDERED: PT OWN MED DRAWER 7, Y5N ONE ×3 (08:56→21:42)
[2018-07-27 09:40] LABS: HEMATOCRIT 33.8 % (32.4-45.2); HEMOGLOBIN 10.9 GM/dL (10.7-15.3); MCH 29.1 pg (25.7-33.7); MCHC 32.1 g/dl (32.0-36.0); MEAN CELL VOLUME 90.5 fl (80-96); MEAN PLT VOLUME 9.8 fl (7.5-11.1); PLATELET COUNT 284 K/MM3 (134-434); RBC 3.74 M/mm3 (3.60-5.2); RDW 15.2 % (11.6-15.6); WHITE BLOOD COUNT 8.8 K/mm3 (4.0-10.0)
[2018-07-27] MEDS: POLYETHYLENE GLYCOL 3350 119 GM BTL PO SCH ×2 (10:09→22:20)
[2018-07-27] MEDS: ERTAPENEM SODIUM 1 GM in SODIUM CHLORIDE 50 ML IVPB SCH (10:09)
[2018-07-27] MEDS: LIDOCAINE 5% TOPICAL PATCH TP SCH (10:09)
[2018-07-27] MEDS: PANTOPRAZOLE 40 MG TABLET (FP) PO SCH ×2 (10:10→22:19)
[2018-07-27] MEDS: FENOFIBRIC ACID 135 MG CAP PO SCH (10:10)
[2018-07-27] MEDS: CALCIUM 500MG/VIT-D 200 UNITS COMBO TABLET (FP) PO SCH (10:10)
[2018-07-27] MEDS: TIOTROPIUM BROMIDE 2.5 MCG (SPIRIVA) RESPIMAT INHALER IH SCH (10:15)
[2018-07-27] MEDS: BUDESONIDE/FORMETEROL FUMARATE 160/4.5 mcg INHALER IH SCH ×2 (10:16→22:20)
--- NOTE | 2018-07-27 11:29 | PN ---
Progress Note (short form) - Note Progress Note: Patient seen in follow up. No new complaints. Ongoing lower extremity pain, L > R. No significant events overnight. Inpatient Meds reviewed. Current Medications Acetaminophen (Tylenol -) 650 mg PO Q4H PRN PRN Reason: FEVER Last Admin: 07/27/18 10:20 Dose: 650 mg Atorvastatin Calcium (Lipitor -) 10 mg PO HS [facility] Last Admin: 07/26/18 22:10 Dose: 10 mg Budesonide/Formoterol Fumarate (Symbicort 160/4.5mcg -) 2 puff IH BID [facility] Last Admin: 07/27/18 10:16 Dose: 2 puff Calcium Carbonate/Cholecalciferol (Os-Ray 500+D -) 1 tab PO DAILY [facility] Last Admin: 07/27/18 10:10 Dose: 1 tab Cyclobenzaprine HCl (Flexeril -) 10 mg PO TID PRN PRN Reason: BACK PAIN Last Admin: 07/26/18 22:26 Dose: 10 mg Docusate Sodium (Colace -) 100 mg PO TID [facility] Last Admin: 07/27/18 06:18 Dose: 100 mg Enoxaparin Sodium 80 mg/ (Enoxaparin Sodium 50 mg) 130 mg SQ BID@0700,1900 [facility] Last Admin: 07/27/18 06:18 Dose: 130 mg Fenofibric Acid (Trilipix -) 135 mg PO DAILY [facility] Last Admin: 07/27/18 10:10 Dose: 135 mg Ertapenem 1 gm/ Sodium (Chloride) 50 mls @ 100 mls/hr IVPB DAILY [facility] Last Admin: 07/27/18 10:09 Dose: 100 mls/hr Insulin Aspart (Novolog Vial Sliding Scale -) 1 vial SQ ACHS [facility]; Protocol Last Admin: 07/27/18 06:17 Dose: Not Given Insulin Detemir (Levemir Vial) 60 units SQ AM [facility] Last Admin: 07/27/18 06:17 Dose: Not Given Insulin Detemir (Levemir Vial) 45 units SQ HS [facility] Last Admin: 07/26/18 22:15 Dose: 45 units Lidocaine (Lidoderm Patch -) 1 patch TP DAILY [facility] Last Admin: 07/27/18 10:09 Dose: 1 patch Methylnaltrexone [place] (Relistor -) 12 mg SQ DAILY [facility] Last Admin: 07/26/18 15:21 Dose: 12 mg Mirtazapine (Remeron -) 7.5 mg PO HS [facility] Last Admin: 07/26/18 22:10 Dose: 7.5 mg Miscellaneous (Lidoderm Patch Removal) 1 each MC DAILY@2200 [facility] Last Admin: 07/26/18 22:15 Dose: 1 each Montelukast Sodium (Singulair -) 10 mg PO HS [facility] Last Admin: 07/26/18 22:10 Dose: 10 mg Pantoprazole Sodium (Protonix -) 40 mg PO BID [facility] Last Admin: 07/27/18 10:10 Dose: 40 mg Polyethylene Glycol (Miralax (For Daily Use) -) 17 gm PO BID [facility] Last Admin: 07/27/18 10:09 Dose: 17 grams Tiotropium [place] (Spiriva Respimat) 2 puff IH DAILY [facility] Last Admin: 07/27/18 10:15 Dose: 2 puff On Examination: Last Vital Signs Temp Pulse Resp BP Pulse Ox 99.1 F 88 20 132/78 96 07/27/18 10:00 07/27/18 10:00 07/27/18 10:00 07/27/18 10:00 07/27/18 08:39 General: In no acute distress, lying supine in bed. Extremities: No pallor or icterus. No pedal edema. No palpable lymphadenopathy. Bilateral lower extremity swelling - legs tender. CVS: S1, S2, regular, no gallop or murmur. Chest: good air entry bilaterally, clear Abdomen: Non-distended, non-tender, no palpable organomegaly. Psychiatric: Emotionally labile, tearful. Neuro: Alert, oriented, non-focal. Labs: CBC, BMP 07/27/18 09:25 07/27/18 07:00 Assessment. Spontaneous extensive bilateral lower extremity venous thrombosis - symptomatic. Concern yesterday about possible pelvic hematoma seen on CT, but Hb stable/ improved despite ongoing anticoagulation (LMWH). Repeat CT scan 07/25 - stable pelvic sidewall hematoma. IVC filter in situ. Empiric antibiotics started for low-grade fever, - ESBL urine 07/18 - noted. Noted again temp 101 yesterday evening - now afebrile. Continue anticoagulation. Monitor H/H. Underlying reason for hypercoagulability remains obscure - occult malignancy remains a possibility. Will continue to follow.
--- NOTE | 2018-07-27 12:04 | PN ---
Progress Note (short form) - Note Progress Note: Still with LE pain Left>right. No CP or SOB. Afebrile today. No acute events overnight. Intake & Output 07/24/18 07/25/18 07/26/18 07/27/18 23:59 23:59 23:59 23:59 Intake Total 870 670 610 320 Balance 870 670 610 320 Last Vital Signs Temp Pulse Resp BP Pulse Ox 99.1 F 88 20 132/78 96 07/27/18 10:00 07/27/18 10:00 07/27/18 10:00 07/27/18 10:00 07/27/18 08:39 Active Medications Acetaminophen (Tylenol -) 650 mg PO Q4H PRN PRN Reason: FEVER Last Admin: 07/27/18 10:20 Dose: 650 mg Atorvastatin Calcium (Lipitor -) 10 mg PO HS [facility] Last Admin: 07/26/18 22:10 Dose: 10 mg Budesonide/Formoterol Fumarate (Symbicort 160/4.5mcg -) 2 puff IH BID [facility] Last Admin: 07/27/18 10:16 Dose: 2 puff Calcium Carbonate/Cholecalciferol (Os-Ray 500+D -) 1 tab PO DAILY [facility] Last Admin: 07/27/18 10:10 Dose: 1 tab Cyclobenzaprine HCl (Flexeril -) 10 mg PO TID PRN PRN Reason: BACK PAIN Last Admin: 07/26/18 22:26 Dose: 10 mg Docusate Sodium (Colace -) 100 mg PO TID [facility] Last Admin: 07/27/18 06:18 Dose: 100 mg Enoxaparin Sodium 80 mg/ (Enoxaparin Sodium 50 mg) 130 mg SQ BID@0700,1900 [facility] Last Admin: 07/27/18 06:18 Dose: 130 mg Fenofibric Acid (Trilipix -) 135 mg PO DAILY [facility] Last Admin: 07/27/18 10:10 Dose: 135 mg Ertapenem 1 gm/ Sodium (Chloride) 50 mls @ 100 mls/hr IVPB DAILY [facility] Last Admin: 07/27/18 10:09 Dose: 100 mls/hr Insulin Aspart (Novolog Vial Sliding Scale -) 1 vial SQ ACHS [facility]; Protocol Last Admin: 07/27/18 11:31 Dose: Not Given Insulin Detemir (Levemir Vial) 60 units SQ AM [facility] Last Admin: 07/27/18 06:17 Dose: Not Given Insulin Detemir (Levemir Vial) 45 units SQ HS [facility] Last Admin: 07/26/18 22:15 Dose: 45 units Lidocaine (Lidoderm Patch -) 1 patch TP DAILY [facility] Last Admin: 07/27/18 10:09 Dose: 1 patch Methylnaltrexone [place] (Relistor -) 12 mg SQ DAILY [facility] Last Admin: 07/26/18 15:21 Dose: 12 mg Mirtazapine (Remeron -) 7.5 mg PO HS [facility] Last Admin: 07/26/18 22:10 Dose: 7.5 mg Miscellaneous (Lidoderm Patch Removal) 1 each MC DAILY@2200 [facility] Last Admin: 07/26/18 22:15 Dose: 1 each Montelukast Sodium (Singulair -) 10 mg PO [facility] Last Admin: 07/26/18 22:10 Dose: 10 mg Pantoprazole Sodium (Protonix -) 40 mg PO BID [facility] Last Admin: 07/27/18 10:10 Dose: 40 mg Polyethylene Glycol (Miralax (For Daily Use) -) 17 gm PO BID [facility] Last Admin: 07/27/18 10:09 Dose: 17 grams Tiotropium [place] (Spiriva Respimat) 2 puff IH DAILY [facility] Last Admin: 07/27/18 10:15 Dose: 2 puff Constitutional: Yes: NAD Eyes: Yes: WNL HENT: Yes: WNL Neck: Yes: WNL Cardiovascular: Yes: Regular Rate and Rhythm, S1, S2 Respiratory: Yes: Diminished Gastrointestinal: Yes: Normal Bowel Sounds, Soft, Abdomen, Obese Extremities: Yes: WNL Edema: Yes Labs: Laboratory Results - last 24 hr 07/26/18 07/26/18 07/27/18 16:42 22:09 05:39 WBC RBC Hgb Hct MCV MCH MCHC RDW Plt Count MPV Absolute Neuts (auto) Neutrophils % Lymphocytes % Monocytes % Eosinophils % Basophils % Nucleated RBC % PTT (Actin FS) Sodium Potassium Chloride Carbon Dioxide Anion Gap BUN Creatinine Creat Clearance w eGFR POC Glucometer 117 128 130 Random Glucose Calcium Total Bilirubin AST ALT Alkaline Phosphatase Total Protein Albumin 07/27/18 07/27/18 07/27/18 07:00 07:00 07:00 WBC 7.7 RBC 3.21 L Hgb 9.3 L Hct 28.5 L MCV 88.8 MCH 28.9 MCHC 32.6 RDW 15.2 Plt Count 293 MPV 9.3 Absolute Neuts (auto) 5.6 Neutrophils % 72.8 Lymphocytes % 16.0 Monocytes % 8.5 Eosinophils % 2.0 Basophils % 0.7 Nucleated RBC % 0 PTT (Actin FS) 39.5 H Sodium 137 Potassium 3.7 Chloride 101 Carbon Dioxide 30 Anion Gap 6 L BUN 16 Creatinine 0.8 Creat Clearance w eGFR 73.42 POC Glucometer Random Glucose 96 Calcium 8.4 L Total Bilirubin 0.6 AST 34 ALT 21 Alkaline Phosphatase 109 Total Protein 6.2 L Albumin 2.4 L 07/27/18 07/27/18 09:25 10:55 WBC 8.8 RBC 3.74 Hgb 10.9 Hct 33.8 D MCV 90.5 MCH 29.1 MCHC 32.1 RDW 15.2 Plt Count 284 MPV 9.8 Absolute Neuts (auto) Neutrophils % Lymphocytes % Monocytes % Eosinophils % Basophils % Nucleated RBC % PTT (Actin FS) Sodium Potassium Chloride Carbon Dioxide Anion Gap BUN Creatinine Creat Clearance w eGFR POC Glucometer 145 Random Glucose Calcium Total Bilirubin AST ALT Alkaline Phosphatase Total Protein Albumin Problem List - Problems (1) Anemia Code(s): D64.9 - ANEMIA, UNSPECIFIED (2) Asthma Code(s): J45.909 - UNSPECIFIED ASTHMA, UNCOMPLICATED (3) DVT of lower extremity, bilateral Code(s): I82.403 - ACUTE EMBOLISM AND THOMBOS UNSP DEEP VEINS OF LOW EXTRM, BI (4) Hematoma Code(s): T14.8XXA - OTHER INJURY OF UNSPECIFIED BODY REGION, INITIAL ENCOUNTER (5) Chronic pain Code(s): G89.29 - OTHER CHRONIC PAIN (6) GERD (gastroesophageal reflux disease) Code(s): K21.9 - GASTRO-ESOPHAGEAL REFLUX DISEASE WITHOUT ESOPHAGITIS Qualifiers: Esophagitis presence: without esophagitis Qualified Code(s): K21.9 - Gastro -esophageal reflux disease without esophagitis (7) HLD (hyperlipidemia) Code(s): E78.5 - HYPERLIPIDEMIA, UNSPECIFIED (8) HTN (hypertension) Code(s): I10 - ESSENTIAL (PRIMARY) HYPERTENSION (9) DVT (deep venous thrombosis) Code(s): I82.409 - ACUTE EMBOLISM AND THOMBOS UNSP DEEP VN UNSP LOWER EXTREMITY Qualifiers: DVT location: lower extremity Chronicity: unspecified Laterality: right Assessment/Plan Acute Blood Loss Anemia Acute Bilateral Extensive DVTs h/o IVC filter Acute Kidney Injury Asthma Anemia Thrombocytopenia - monitor H/H - continue anticoagulation with Lovenox BID - monitor urine output, creatinine - O2 to keep SpO2 >90% - inhaled bronchodilators as needed - Pain control - Rheumatology evaluation has been called Dr Lr
--- NOTE | 2018-07-27 12:38 | PN ---
Progress Note, Physician History of Present Illness: Pt appears more comfortable today. C/O of LLE pain but less pain in RLE. No SOB. Temp of 101.1 yesterday, currently 99.2F. - Current Medication List Current Medications: Active Medications Acetaminophen (Tylenol -) 650 mg PO Q4H PRN PRN Reason: FEVER Last Admin: 07/27/18 10:20 Dose: 650 mg Atorvastatin Calcium (Lipitor -) 10 mg PO HS [facility] Last Admin: 07/26/18 22:10 Dose: 10 mg Budesonide/Formoterol Fumarate (Symbicort 160/4.5mcg -) 2 puff IH BID [facility] Last Admin: 07/27/18 10:16 Dose: 2 puff Calcium Carbonate/Cholecalciferol (Os-Ray 500+D -) 1 tab PO DAILY [facility] Last Admin: 07/27/18 10:10 Dose: 1 tab Cyclobenzaprine HCl (Flexeril -) 10 mg PO TID PRN PRN Reason: BACK PAIN Last Admin: 07/26/18 22:26 Dose: 10 mg Docusate Sodium (Colace -) 100 mg PO TID [facility] Last Admin: 07/27/18 06:18 Dose: 100 mg Enoxaparin Sodium 80 mg/ (Enoxaparin Sodium 50 mg) 130 mg SQ BID@0700,1900 [facility] Last Admin: 07/27/18 06:18 Dose: 130 mg Fenofibric Acid (Trilipix -) 135 mg PO DAILY [facility] Last Admin: 07/27/18 10:10 Dose: 135 mg Ertapenem 1 gm/ Sodium (Chloride) 50 mls @ 100 mls/hr IVPB DAILY [facility] Last Admin: 07/27/18 10:09 Dose: 100 mls/hr Insulin Aspart (Novolog Vial Sliding Scale -) 1 vial SQ ACHS [facility]; Protocol Last Admin: 07/27/18 11:31 Dose: Not Given Insulin Detemir (Levemir Vial) 60 units SQ AM [facility] Last Admin: 07/27/18 06:17 Dose: Not Given Insulin Detemir (Levemir Vial) 45 units SQ HS [facility] Last Admin: 07/26/18 22:15 Dose: 45 units Lidocaine (Lidoderm Patch -) 1 patch TP DAILY [facility] Last Admin: 07/27/18 10:09 Dose: 1 patch Methylnaltrexone [place] (Relistor -) 12 mg SQ DAILY [facility] Last Admin: 07/26/18 15:21 Dose: 12 mg Mirtazapine (Remeron -) 7.5 mg PO [facility] Last Admin: 07/26/18 22:10 Dose: 7.5 mg Miscellaneous (Lidoderm Patch Removal) 1 each MC DAILY@2200 [facility] Last Admin: 07/26/18 22:15 Dose: 1 each Montelukast Sodium (Singulair -) 10 mg PO HS [facility] Last Admin: 07/26/18 22:10 Dose: 10 mg Pantoprazole Sodium (Protonix -) 40 mg PO BID [facility] Last Admin: 07/27/18 10:10 Dose: 40 mg Polyethylene Glycol (Miralax (For Daily Use) -) 17 gm PO BID [facility] Last Admin: 07/27/18 10:09 Dose: 17 grams Tiotropium [place] (Spiriva Respimat) 2 puff IH DAILY [facility] Last Admin: 07/27/18 10:15 Dose: 2 puff - Objective Vital Signs: Vital Signs Temperature 99.1 F 07/27/18 10:00 Pulse Rate 88 07/27/18 10:00 Respiratory Rate 20 07/27/18 10:00 Blood Pressure 132/78 07/27/18 10:00 O2 Sat by Pulse Oximetry (%) 96 07/27/18 08:39 Constitutional: Yes: No Distress, Calm Cardiovascular: Yes: Regular Rate and Rhythm Respiratory: Yes: Regular Gastrointestinal: Yes: Normal Bowel Sounds, Soft Edema: LLE: 2+, RLE: 2+ Integumentary: Yes: WNL Neurological: Yes: Alert Labs: CBC, BMP 07/27/18 09:25 07/27/18 07:00 INR, PTT INR 1.44 (0.83-1.09) H 07/21/18 05:30 Fibrinogen 415.0 mg/dL (238-498) D 07/18/18 05:30 Microbiology 07/21/18 11:30 Blood - Peripheral Venous Blood Culture - Final NO GROWTH AFTER 5 DAYS INCUBATION 07/21/18 09:40 Blood - Peripheral Venous Blood Culture - Final NO GROWTH AFTER 5 DAYS INCUBATION 07/16/18 19:45 Blood - Peripheral Venous Blood Culture - Final NO GROWTH AFTER 5 DAYS INCUBATION 07/16/18 19:30 Blood - Peripheral Venous Blood Culture - Final NO GROWTH AFTER 5 DAYS INCUBATION 07/18/18 17:15 Urine - Urine K[place]n Urine Culture - Final Escherichia Coli [employer] Problem List - Problems (1) ARF (acute renal failure) Code(s): N17.9 - ACUTE KIDNEY FAILURE, UNSPECIFIED (2) Anemia Code(s): D64.9 - ANEMIA, UNSPECIFIED (3) DVT of lower extremity, bilateral Code(s): I82.403 - ACUTE EMBOLISM AND THOMBOS UNSP DEEP VEINS OF LOW EXTRM, BI (4) Hematoma Code(s): T14.8XXA - OTHER INJURY OF UNSPECIFIED BODY REGION, INITIAL ENCOUNTER (5) UTI (urinary tract infection) Code(s): N39.0 - URINARY TRACT INFECTION, SITE NOT SPECIFIED (6) Hyperglycemia Code(s): R73.9 - HYPERGLYCEMIA, UNSPECIFIED (7) Anxiety and depression Code(s): F41.8 - OTHER SPECIFIED ANXIETY DISORDERS (8) Diabetes Code(s): E11.9 - TYPE 2 DIABETES MELLITUS WITHOUT COMPLICATIONS (9) HLD (hyperlipidemia) Code(s): E78.5 - HYPERLIPIDEMIA, UNSPECIFIED (10) HTN (hypertension) Code(s): I10 - ESSENTIAL (PRIMARY) HYPERTENSION (11) Obesity (BMI 30-39.9) Code(s): E66.9 - OBESITY, UNSPECIFIED Assessment/Plan Fever Leukoyctosis - resolved b/l LE extensive DVT ESBL+ UTI Pelvic hematoma Rt hydronephrosis/hydroureter Hx of DVT/PE Anemia -- restarted IV antibiotics yesterday, febrile last night, currently afebrile -- Continue monitor vitals -- Hematology/Vascular f/u
[2018-07-27] MEDS: Methylnaltrexone Bromide 12 MG/0.6 ML KIT SQ SCH (13:37)
[2018-07-27] MEDS: SODIUM PHOSPHATE/NA BIPHOS 133 ML ENEMA RC SCH ×2 (17:49→21:30)
--- NOTE | 2018-07-27 21:22 | PN ---
Progress Note, Physician History of Present Illness: Pt still complains of pain and swelling of legs Pt spiked temp to 101 yesterday - Current Medication List Current Medications: Active Medications Acetaminophen (Tylenol -) 650 mg PO Q4H PRN PRN Reason: FEVER Last Admin: 07/27/18 10:20 Dose: 650 mg Atorvastatin Calcium (Lipitor -) 10 mg PO HS [facility] Last Admin: 07/26/18 22:10 Dose: 10 mg Budesonide/Formoterol Fumarate (Symbicort 160/4.5mcg -) 2 puff IH BID [facility] Last Admin: 07/27/18 10:16 Dose: 2 puff Calcium Carbonate/Cholecalciferol (Os-Ray 500+D -) 1 tab PO DAILY [facility] Last Admin: 07/27/18 10:10 Dose: 1 tab Cyclobenzaprine HCl (Flexeril -) 10 mg PO TID PRN PRN Reason: BACK PAIN Last Admin: 07/26/18 22:26 Dose: 10 mg Docusate Sodium (Colace -) 100 mg PO TID [facility] Last Admin: 07/27/18 13:38 Dose: 100 mg Enoxaparin Sodium 80 mg/ (Enoxaparin Sodium 50 mg) 130 mg SQ BID@0700,1900 [facility] Last Admin: 07/27/18 18:41 Dose: 130 mg Fenofibric Acid (Trilipix -) 135 mg PO DAILY [facility] Last Admin: 07/27/18 10:10 Dose: 135 mg Ertapenem 1 gm/ Sodium (Chloride) 50 mls @ 100 mls/hr IVPB DAILY [facility] Last Admin: 07/27/18 10:09 Dose: 100 mls/hr Insulin Aspart (Novolog Vial Sliding Scale -) 1 vial SQ ACHS [facility]; Protocol Last Admin: 07/27/18 17:33 Dose: Not Given Insulin Detemir (Levemir Vial) 60 units SQ AM [facility] Last Admin: 07/27/18 06:17 Dose: Not Given Insulin Detemir (Levemir Vial) 45 units SQ HS [facility] Last Admin: 07/26/18 22:15 Dose: 45 units Lidocaine (Lidoderm Patch -) 1 patch TP DAILY [facility] Last Admin: 07/27/18 10:09 Dose: 1 patch Methylnaltrexone [place] (Relistor -) 12 mg SQ DAILY [facility] Last Admin: 07/27/18 13:37 Dose: 12 mg Mirtazapine (Remeron -) 7.5 mg PO HS [facility] Last Admin: 07/26/18 22:10 Dose: 7.5 mg Miscellaneous (Lidoderm Patch Removal) 1 each MC DAILY@2200 [facility] Last Admin: 07/26/18 22:15 Dose: 1 each Montelukast Sodium (Singulair -) 10 mg PO HS [facility] Last Admin: 07/26/18 22:10 Dose: 10 mg Pantoprazole Sodium (Protonix -) 40 mg PO BID [facility] Last Admin: 07/27/18 10:10 Dose: 40 mg Polyethylene Glycol (Miralax (For Daily Use) -) 17 gm PO BID [facility] Last Admin: 07/27/18 10:09 Dose: 17 grams Tiotropium [place] (Spiriva Respimat) 2 puff IH DAILY [facility] Last Admin: 07/27/18 10:15 Dose: 2 puff - Objective Vital Signs: Vital Signs Temperature 99.1 F 07/27/18 16:52 Pulse Rate 84 07/27/18 16:52 Respiratory Rate 20 07/27/18 16:52 Blood Pressure 135/71 07/27/18 16:52 O2 Sat by Pulse Oximetry (%) 96 07/27/18 08:39 Neck: Yes: WNL, Supple Cardiovascular: Yes: WNL, Regular Rate and Rhythm Respiratory: Yes: WNL, Regular, CTA Bilaterally Gastrointestinal: Yes: WNL, Normal Bowel Sounds, Soft Edema: LLE: 2+, RLE: 2+ Labs: CBC, BMP 07/27/18 09:25 07/27/18 07:00 INR, PTT INR 1.44 (0.83-1.09) H 07/21/18 05:30 Fibrinogen 415.0 mg/dL (238-498) D 07/18/18 05:30 Problem List - Problems (1) Fever Assessment/Plan: Pt restarted on IV antibxs(Invanz) BC from 07/21/18 remains negative WBC remains rufina Code(s): R50.9 - FEVER, UNSPECIFIED (2) DVT of lower extremity, bilateral Assessment/Plan: Cont lovenox DVT extending from IVC filter to inf vena cava/common iliac/external iliac B/L Monitor for bleeding H/O IVC filter Encourage OOB w/ ambulation Vasc surgeon to reconsult ?Compartment syndrome Code(s): I82.403 - ACUTE EMBOLISM AND THOMBOS UNSP DEEP VEINS OF LOW EXTRM, BI (3) Hematoma Assessment/Plan: CT scan abd showed: No change in pelvic hematomas and multiple thrombosis's Monitor for bleeding Code(s): T14.8XXA - OTHER INJURY OF UNSPECIFIED BODY REGION, INITIAL ENCOUNTER (4) Back pain Assessment/Plan: Chronic back pain Pt now w/ increasedd constipation Check abdominal FUA Will need PT and enocurage OOB to chair Cont lidocaine/oxycodone/flexeril Cont stool softners Code(s): M54.9 - DORSALGIA, UNSPECIFIED Qualifiers: Back pain location: low back pain Chronicity: unspecified Back pain laterality: right Sciatica presence: unspecified whether sciatica present Qualified Code(s): M54.5 - Low back pain (5) Diabetes Assessment/Plan: Cont sliding scale w/ coverage/levemir Code(s): E11.9 - TYPE 2 DIABETES MELLITUS WITHOUT COMPLICATIONS (6) HLD (hyperlipidemia) Assessment/Plan: Cont lipitor/fenofibrate Code(s): E78.5 - HYPERLIPIDEMIA, UNSPECIFIED (7) Neuropathy due to type 2 diabetes mellitus Code(s): E11.40 - TYPE 2 DIABETES MELLITUS WITH DIABETIC NEUROPATHY, UNSP (8) Obesity (BMI 30-39.9) Code(s): E66.9 - OBESITY, UNSPECIFIED (9) ARF (acute renal failure) Assessment/Plan: Creatinine/Bun improved and now normal Code(s): N17.9 - ACUTE KIDNEY FAILURE, UNSPECIFIED (10) Asthma Assessment/Plan: Cont spireva/symbicort Code(s): J45.909 - UNSPECIFIED ASTHMA, UNCOMPLICATED (11) Anemia Assessment/Plan: Acute blood loss anemia Monitor H/H Pt has required blood transfusions Code(s): D64.9 - ANEMIA, UNSPECIFIED
[2018-07-27] MEDS: ATORVASTATIN CA 10 MG TABLET (FP) PO SCH (22:19)
[2018-07-27] MEDS: MONTELUKAST NA 10 MG TABLET PO SCH (22:19)
[2018-07-27] MEDS: LIDOCAINE PATCH REMOVAL MC SCH (22:20)
[2018-07-27] MEDS: MIRTAZAPINE 15 MG TABLET (FP) PO SCH (22:22)
[2018-07-28] MEDS ORDERED: ENOXAPARIN NA (PORCINE) 80 MG/0.8 ML DISP.SYRIN SQ ONE ×3 (05:35→17:31)
[2018-07-28] MEDS ORDERED: ENOXAPARIN NA (PORCINE) 60 MG/0.6 ML DISP.SYRIN SQ ONE ×3 (05:35→17:31)
[2018-07-28] MEDS: DOCUSATE SODIUM 100 MG CAPSULE (FP) PO SCH ×3 (06:27→21:37)
[2018-07-28] MEDS: INSULIN (LEVEMIR) 100 UNITS/ML UNITS SQ SCH ×2 (06:28→21:28)
[2018-07-28] MEDS: ENOXAPARIN SQ SCH ×2 (06:28→18:05)
[2018-07-28] MEDS: INSULIN SLIDING SCALE (NOVOLOG) 1 VIAL SQ SCH ×4 (06:36→21:29)
[2018-07-28] MEDS: ERTAPENEM SODIUM 1 GM in SODIUM CHLORIDE 50 ML IVPB SCH (10:22)
[2018-07-28] MEDS: LIDOCAINE 5% TOPICAL PATCH TP SCH (10:23)
[2018-07-28] MEDS: CALCIUM 500MG/VIT-D 200 UNITS COMBO TABLET (FP) PO SCH (10:23)
[2018-07-28] MEDS: PANTOPRAZOLE 40 MG TABLET (FP) PO SCH ×2 (10:23→21:37)
[2018-07-28] MEDS: Methylnaltrexone Bromide 12 MG/0.6 ML KIT SQ SCH (10:23)
[2018-07-28] MEDS: CYCLOBENZAPRINE HCL 10 MG TABLET (FP) PO PRN (10:24)
[2018-07-28] MEDS: TIOTROPIUM BROMIDE 2.5 MCG (SPIRIVA) RESPIMAT INHALER IH SCH (10:24)
[2018-07-28] MEDS: ACETAMINOPHEN 325 MG TABLET (FP) PO PRN ×2 (10:24→17:56)
[2018-07-28] MEDS: FENOFIBRIC ACID 135 MG CAP PO SCH (10:24)
[2018-07-28] MEDS: BUDESONIDE/FORMETEROL FUMARATE 160/4.5 mcg INHALER IH SCH ×2 (10:24→21:38)
[2018-07-28] MEDS: POLYETHYLENE GLYCOL 3350 119 GM BTL PO SCH ×2 (11:29→21:38)
--- NOTE | 2018-07-28 11:58 | PN ---
Progress Note (short form) - Note Progress Note: No acute events overnight. Still with LE pain Left>right. No CP or SOB. Afebrile today. Intake & Output 07/25/18 07/26/18 07/27/18 07/28/18 23:59 23:59 23:59 23:59 Intake Total 670 610 620 240 Balance 670 610 620 240 Last Vital Signs Temp Pulse Resp BP Pulse Ox 97.9 F 94 H 18 137/85 97 07/28/18 10:00 07/28/18 10:00 07/28/18 10:00 07/28/18 10:00 07/27/18 21:00 Active Medications Acetaminophen (Tylenol -) 650 mg PO Q4H PRN PRN Reason: FEVER Last Admin: 07/28/18 10:24 Dose: 650 mg Atorvastatin Calcium (Lipitor -) 10 mg PO HS [facility] Last Admin: 07/27/18 22:19 Dose: 10 mg Budesonide/Formoterol Fumarate (Symbicort 160/4.5mcg -) 2 puff IH BID [facility] Last Admin: 07/28/18 10:24 Dose: 2 puff Calcium Carbonate/Cholecalciferol (Os-Ray 500+D -) 1 tab PO DAILY [facility] Last Admin: 07/28/18 10:23 Dose: 1 tab Cyclobenzaprine HCl (Flexeril -) 10 mg PO TID PRN PRN Reason: BACK PAIN Last Admin: 07/28/18 10:24 Dose: 10 mg Docusate Sodium (Colace -) 100 mg PO TID [facility] Last Admin: 07/28/18 06:27 Dose: 100 mg Enoxaparin Sodium 80 mg/ (Enoxaparin Sodium 50 mg) 130 mg SQ BID@0700,1900 [facility] Last Admin: 07/28/18 06:28 Dose: 130 mg Fenofibric Acid (Trilipix -) 135 mg PO DAILY [facility] Last Admin: 07/28/18 10:24 Dose: 135 mg Ertapenem 1 gm/ Sodium (Chloride) 50 mls @ 100 mls/hr IVPB DAILY [facility] Last Admin: 07/28/18 10:22 Dose: 100 mls/hr Insulin Aspart (Novolog Vial Sliding Scale -) 1 vial SQ ACHS [facility]; Protocol Last Admin: 07/28/18 11:33 Dose: Not Given Insulin Detemir (Levemir Vial) 60 units SQ AM [facility] Last Admin: 07/28/18 06:28 Dose: Not Given Insulin Detemir (Levemir Vial) 45 units SQ HS [facility] Last Admin: 07/27/18 22:37 Dose: 45 units Lidocaine (Lidoderm Patch -) 1 patch TP DAILY [facility] Last Admin: 07/28/18 10:23 Dose: 1 patch Methylnaltrexone [place] (Relistor -) 12 mg SQ DAILY [facility] Last Admin: 07/28/18 10:23 Dose: 12 mg Mirtazapine (Remeron -) 7.5 mg PO [facility] Last Admin: 07/27/18 22:22 Dose: 7.5 mg Miscellaneous (Lidoderm Patch Removal) 1 each MC DAILY@2200 [facility] Last Admin: 07/27/18 22:20 Dose: 1 each Montelukast Sodium (Singulair -) 10 mg PO [facility] Last Admin: 07/27/18 22:19 Dose: 10 mg Pantoprazole Sodium (Protonix -) 40 mg PO BID [facility] Last Admin: 07/28/18 10:23 Dose: 40 mg Polyethylene Glycol (Miralax (For Daily Use) -) 17 gm PO BID [facility] Last Admin: 07/28/18 11:29 Dose: Not Given Tiotropium [place] (Spiriva Respimat) 2 puff IH DAILY [facility] Last Admin: 07/28/18 10:24 Dose: 2 puff Constitutional: Yes: NAD Eyes: Yes: WNL HENT: Yes: WNL Neck: Yes: WNL Cardiovascular: Yes: Regular Rate and Rhythm, S1, S2 Respiratory: Yes: Diminished Gastrointestinal: Yes: Normal Bowel Sounds, Soft, Abdomen, Obese Extremities: Yes: WNL Edema: Yes Labs: Laboratory Results - last 24 hr 07/27/18 07/27/18 07/28/18 16:49 22:19 06:27 POC Glucometer 89 123 100 07/28/18 11:32 POC Glucometer 110 Problem List - Problems (1) Anemia Code(s): D64.9 - ANEMIA, UNSPECIFIED (2) Asthma Code(s): J45.909 - UNSPECIFIED ASTHMA, UNCOMPLICATED (3) DVT of lower extremity, bilateral Code(s): I82.403 - ACUTE EMBOLISM AND THOMBOS UNSP DEEP VEINS OF LOW EXTRM, BI (4) Hematoma Code(s): T14.8XXA - OTHER INJURY OF UNSPECIFIED BODY REGION, INITIAL ENCOUNTER (5) Chronic pain Code(s): G89.29 - OTHER CHRONIC PAIN (6) GERD (gastroesophageal reflux disease) Code(s): K21.9 - GASTRO-ESOPHAGEAL REFLUX DISEASE WITHOUT ESOPHAGITIS Qualifiers: Esophagitis presence: without esophagitis Qualified Code(s): K21.9 - Gastro -esophageal reflux disease without esophagitis (7) HLD (hyperlipidemia) Code(s): E78.5 - HYPERLIPIDEMIA, UNSPECIFIED (8) HTN (hypertension) Code(s): I10 - ESSENTIAL (PRIMARY) HYPERTENSION (9) DVT (deep venous thrombosis) Code(s): I82.409 - ACUTE EMBOLISM AND THOMBOS UNSP DEEP VN UNSP LOWER EXTREMITY Qualifiers: DVT location: lower extremity Chronicity: unspecified Laterality: right Assessment/Plan Acute Blood Loss Anemia Acute Bilateral Extensive DVTs h/o IVC filter Acute Kidney Injury Asthma Anemia Thrombocytopenia R/O Malignancy - continue anticoagulation with Lovenox BID - monitor urine output, creatinine - O2 to keep SpO2 >90% - inhaled bronchodilators as needed - Pain control - Rheumatology evaluation has been called Dr Lr
--- NOTE | 2018-07-28 14:37 | PN ---
Progress Note, Physician History of Present Illness: stable pain is main issues remaining stable - Current Medication List Current Medications: Active Medications Acetaminophen (Tylenol -) 650 mg PO Q4H PRN PRN Reason: FEVER Last Admin: 07/28/18 10:24 Dose: 650 mg Atorvastatin Calcium (Lipitor -) 10 mg PO HS [facility] Last Admin: 07/27/18 22:19 Dose: 10 mg Budesonide/Formoterol Fumarate (Symbicort 160/4.5mcg -) 2 puff IH BID [facility] Last Admin: 07/28/18 10:24 Dose: 2 puff Calcium Carbonate/Cholecalciferol (Os-Ray 500+D -) 1 tab PO DAILY [facility] Last Admin: 07/28/18 10:23 Dose: 1 tab Cyclobenzaprine HCl (Flexeril -) 10 mg PO TID PRN PRN Reason: BACK PAIN Last Admin: 07/28/18 10:24 Dose: 10 mg Docusate Sodium (Colace -) 100 mg PO TID [facility] Last Admin: 07/28/18 06:27 Dose: 100 mg Enoxaparin Sodium 80 mg/ (Enoxaparin Sodium 50 mg) 130 mg SQ BID@0700,1900 [facility] Last Admin: 07/28/18 06:28 Dose: 130 mg Fenofibric Acid (Trilipix -) 135 mg PO DAILY [facility] Last Admin: 07/28/18 10:24 Dose: 135 mg Ertapenem 1 gm/ Sodium (Chloride) 50 mls @ 100 mls/hr IVPB DAILY [facility] Last Admin: 07/28/18 10:22 Dose: 100 mls/hr Insulin Aspart (Novolog Vial Sliding Scale -) 1 vial SQ ACHS [facility]; Protocol Last Admin: 07/28/18 11:33 Dose: Not Given Insulin Detemir (Levemir Vial) 60 units SQ AM [facility] Last Admin: 07/28/18 06:28 Dose: Not Given Insulin Detemir (Levemir Vial) 45 units SQ HS [facility] Last Admin: 07/27/18 22:37 Dose: 45 units Lidocaine (Lidoderm Patch -) 1 patch TP DAILY [facility] Last Admin: 07/28/18 10:23 Dose: 1 patch Methylnaltrexone [place] (Relistor -) 12 mg SQ DAILY [facility] Last Admin: 07/28/18 10:23 Dose: 12 mg Mirtazapine (Remeron -) 7.5 mg PO [facility] Last Admin: 07/27/18 22:22 Dose: 7.5 mg Miscellaneous (Lidoderm Patch Removal) 1 each MC DAILY@2200 [facility] Last Admin: 07/27/18 22:20 Dose: 1 each Montelukast Sodium (Singulair -) 10 mg PO [facility] Last Admin: 07/27/18 22:19 Dose: 10 mg Pantoprazole Sodium (Protonix -) 40 mg PO BID [facility] Last Admin: 07/28/18 10:23 Dose: 40 mg Polyethylene Glycol (Miralax (For Daily Use) -) 17 gm PO BID [facility] Last Admin: 07/28/18 11:29 Dose: Not Given Tiotropium [place] (Spiriva Respimat) 2 puff IH DAILY [facility] Last Admin: 07/28/18 10:24 Dose: 2 puff - Objective Vital Signs: Vital Signs Temperature 97.9 F 07/28/18 10:00 Pulse Rate 94 H 07/28/18 10:00 Respiratory Rate 18 07/28/18 10:00 Blood Pressure 137/85 07/28/18 10:00 O2 Sat by Pulse Oximetry (%) 97 07/27/18 21:00 Constitutional: Yes: Calm, Mild Distress Cardiovascular: Yes: Regular Rate and Rhythm Respiratory: Yes: Regular, CTA Bilaterally Gastrointestinal: Yes: Normal Bowel Sounds, Soft Musculoskeletal: Yes: Other Extremities: Yes: Other Edema: LLE: 2+, RLE: 1+ Neurological: Yes: Alert, Oriented Psychiatric: Yes: Alert, Oriented Labs: CBC, BMP 07/27/18 09:25 07/27/18 07:00 INR, PTT INR 1.44 (0.83-1.09) H 07/21/18 05:30 Fibrinogen 415.0 mg/dL (238-498) D 07/18/18 05:30 Assessment/Plan Problem List - Problems (1) DVT of lower extremity, bilateral Code(s): I82.403 - ACUTE EMBOLISM AND THOMBOS UNSP DEEP VEINS OF LOW EXTRM, BI (2) Back pain Code(s): M54.9 - DORSALGIA, UNSPECIFIED Qualifiers: Back pain location: low back pain Chronicity: unspecified Back pain laterality: right Sciatica presence: unspecified whether sciatica present Qualified Code(s): M54.5 - Low back pain (3) Hyperglycemia Code(s): R73.9 - HYPERGLYCEMIA, UNSPECIFIED (4) Injury of right foot Code(s): S99.921A - UNSPECIFIED INJURY OF RIGHT FOOT, INITIAL ENCOUNTER Qualifiers: Encounter type: initial encounter Qualified Code(s): S99.921A - Unspecified injury of right foot, initial encounter (5) URI (upper respiratory infection) Code(s): J06.9 - ACUTE UPPER RESPIRATORY INFECTION, UNSPECIFIED 6 uti plan stable pain mgmt no other issues physio rest as per the team
--- NOTE | 2018-07-28 16:10 | PN ---
Physical Exam: SUBJECTIVE: Patient seen and examined at bedside. Sitting in chair comfortably. Reports pain in L thigh. Reports that she walks around the room and to the bathroom. OBJECTIVE: Vital Signs Period Temp Pulse Resp BP Sys/Gunter Pulse Ox Last 24 Hr 97.9 F-99.3 F 79-94 18-20 122-137/65-85 97 GENERAL: A&Ox3, no acute distress EYES: PERRLA, EOMI ENT: Moist mucus membranes NECK: No JVD LUNGS: CTA, no wheezes HEART: RRR, no murmurs ABDOMEN: Obese, soft and nontender EXTREMITIES: 2+ pulses, 2+ edema noted on b/l lower extremities, extremities well perfused and warm NEUROLOGICAL: Cranial nerves II-XII intact. Laboratory Results - last 24 hr 07/25/18 07/27/18 07/27/18 06:00 16:49 22:19 POC Glucometer 89 123 Blood Type O POSITIVE Antibody Screen Negative Crossmatch See Detail 07/28/18 07/28/18 06:27 11:32 POC Glucometer 100 110 Blood Type Antibody Screen Crossmatch Active Medications Generic Name Dose Route Start Last Admin Trade Name Freq PRN Reason Stop Dose Admin Acetaminophen 650 mg 07/22/18 15:49 07/28/18 10:24 Tylenol - PO 650 mg Q4H PRN Administration FEVER Atorvastatin Calcium 10 mg 07/21/18 22:00 07/27/18 22:19 Lipitor - PO 10 mg HS [facility] Administration Budesonide/Formoterol Fumarate 2 puff 07/21/18 22:00 07/28/18 10:24 Symbicort 160/4.5mcg - IH 2 puff BID [facility] Administration Calcium Carbonate/Cholecalciferol 1 tab 07/22/18 10:00 07/28/18 10:23 Os-Ray 500+D - PO 1 tab DAILY [facility] Administration Cyclobenzaprine HCl 10 mg 07/21/18 21:12 07/28/18 10:24 Flexeril - PO 10 mg TID PRN Administration BACK PAIN Docusate Sodium 100 mg 07/21/18 22:00 07/28/18 15:18 Colace - PO Not Given TID [facility] Enoxaparin Sodium 80 mg/ 130 mg 07/21/18 19:00 07/28/18 06:28 Enoxaparin Sodium 50 mg SQ 130 mg BID@0700,1900 [facility] Administration Fenofibric Acid 135 mg 07/22/18 10:00 07/28/18 10:24 Trilipix - PO 135 mg DAILY [facility] Administration Ertapenem 1 gm/ Sodium 50 mls @ 100 mls/hr 07/26/18 17:15 07/28/18 10:22 Chloride IVPB 100 mls/hr DAILY [facility] Administration Insulin Aspart 1 vial 07/21/18 22:00 07/28/18 11:33 Novolog Vial Sliding Scale - SQ Not Given ACHS [facility] Protocol Insulin Detemir 60 units 07/22/18 07:00 07/28/18 06:28 Levemir Vial SQ Not Given AM [facility] Insulin Detemir 45 units 07/21/18 22:00 07/27/18 22:37 Levemir Vial SQ 45 units HS [facility] Administration Lidocaine 1 patch 07/22/18 10:00 07/28/18 10:23 Lidoderm Patch - TP 1 patch DAILY [facility] Administration Methylnaltrexone [place] 12 mg 07/26/18 16:00 07/28/18 10:23 Relistor - SQ 12 mg DAILY [facility] Administration Mirtazapine 7.5 mg 07/21/18 22:00 07/27/18 22:22 Remeron - PO 7.5 mg HS [facility] Administration Miscellaneous 1 each 07/21/18 22:00 07/27/18 22:20 Lidoderm Patch Removal MC 1 each DAILY@2200 [facility] Administration Montelukast Sodium 10 mg 07/21/18 22:00 07/27/18 22:19 Singulair - PO 10 mg HS [facility] Administration Pantoprazole Sodium 40 mg 07/25/18 10:00 07/28/18 10:23 Protonix - PO 40 mg BID [facility] Administration Polyethylene Glycol 17 gm 07/25/18 22:00 07/28/18 11:29 Miralax (For Daily Use) - PO Not Given BID [facility] Tiotropium [place] 2 puff 07/22/18 10:00 07/28/18 10:24 Spiriva Respimat IH 2 puff DAILY [facility] Administration ASSESSMENT/PLAN: 57 year old female hx of back pain, 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 vasculitis -can continue anticoagulation Back pain: continue pain management per primary team Alex Silver, PGY2 Discussed w/ Dr. Clemons Visit type - Emergency Visit Emergency Visit: No - New Patient This patient is new to me today: No - Critical Care Critical Care patient: No
[2018-07-28] MEDS ORDERED: oxyCODONE HCL 5 MG TABLET PO ONE (18:00)
--- NOTE | 2018-07-28 18:55 | PN ---
Progress Note, Physician - Current Medication List Current Medications: Active Medications Acetaminophen (Tylenol -) 650 mg PO Q4H PRN PRN Reason: FEVER Last Admin: 07/28/18 17:56 Dose: 650 mg Atorvastatin Calcium (Lipitor -) 10 mg PO HS [facility] Last Admin: 07/27/18 22:19 Dose: 10 mg Budesonide/Formoterol Fumarate (Symbicort 160/4.5mcg -) 2 puff IH BID [facility] Last Admin: 07/28/18 10:24 Dose: 2 puff Calcium Carbonate/Cholecalciferol (Os-Ray 500+D -) 1 tab PO DAILY [facility] Last Admin: 07/28/18 10:23 Dose: 1 tab Cyclobenzaprine HCl (Flexeril -) 10 mg PO TID PRN PRN Reason: BACK PAIN Last Admin: 07/28/18 10:24 Dose: 10 mg Docusate Sodium (Colace -) 100 mg PO TID [facility] Last Admin: 07/28/18 15:18 Dose: Not Given Enoxaparin Sodium 80 mg/ (Enoxaparin Sodium 50 mg) 130 mg SQ BID@0700,1900 [facility] Last Admin: 07/28/18 18:05 Dose: 130 mg Fenofibric Acid (Trilipix -) 135 mg PO DAILY [facility] Last Admin: 07/28/18 10:24 Dose: 135 mg Ertapenem 1 gm/ Sodium (Chloride) 50 mls @ 100 mls/hr IVPB DAILY [facility] Last Admin: 07/28/18 10:22 Dose: 100 mls/hr Insulin Aspart (Novolog Vial Sliding Scale -) 1 vial SQ ACHS [facility]; Protocol Last Admin: 07/28/18 17:26 Dose: Not Given Insulin Detemir (Levemir Vial) 60 units SQ AM [facility] Last Admin: 07/28/18 06:28 Dose: Not Given Insulin Detemir (Levemir Vial) 45 units SQ HS [facility] Last Admin: 07/27/18 22:37 Dose: 45 units Lidocaine (Lidoderm Patch -) 1 patch TP DAILY [facility] Last Admin: 07/28/18 10:23 Dose: 1 patch Methylnaltrexone [place] (Relistor -) 12 mg SQ DAILY [facility] Last Admin: 07/28/18 10:23 Dose: 12 mg Mirtazapine (Remeron -) 7.5 mg PO HS [facility] Last Admin: 07/27/18 22:22 Dose: 7.5 mg Miscellaneous (Lidoderm Patch Removal) 1 each MC DAILY@2200 [facility] Last Admin: 07/27/18 22:20 Dose: 1 each Montelukast Sodium (Singulair -) 10 mg PO HS [facility] Last Admin: 07/27/18 22:19 Dose: 10 mg Pantoprazole Sodium (Protonix -) 40 mg PO BID [facility] Last Admin: 07/28/18 10:23 Dose: 40 mg Polyethylene Glycol (Miralax (For Daily Use) -) 17 gm PO BID [facility] Last Admin: 07/28/18 11:29 Dose: Not Given Tiotropium [place] (Spiriva Respimat) 2 puff IH DAILY [facility] Last Admin: 07/28/18 10:24 Dose: 2 puff - Objective Vital Signs: Vital Signs Temperature 98.6 F 07/28/18 17:22 Pulse Rate 74 07/28/18 17:22 Respiratory Rate 18 07/28/18 17:22 Blood Pressure 145/70 07/28/18 17:22 O2 Sat by Pulse Oximetry (%) 97 07/28/18 10:00 Labs: CBC, BMP 07/27/18 09:25 07/27/18 07:00 INR, PTT INR 1.44 (0.83-1.09) H 07/21/18 05:30 Fibrinogen 415.0 mg/dL (238-498) D 07/18/18 05:30 Problem List - Problems (1) Fever Code(s): R50.9 - FEVER, UNSPECIFIED (2) DVT of lower extremity, bilateral Code(s): I82.403 - ACUTE EMBOLISM AND THOMBOS UNSP DEEP VEINS OF LOW EXTRM, BI (3) Hematoma Code(s): T14.8XXA - OTHER INJURY OF UNSPECIFIED BODY REGION, INITIAL ENCOUNTER (4) Back pain Code(s): M54.9 - DORSALGIA, UNSPECIFIED Qualifiers: Back pain location: low back pain Chronicity: unspecified Back pain laterality: right Sciatica presence: unspecified whether sciatica present Qualified Code(s): M54.5 - Low back pain (5) Diabetes Code(s): E11.9 - TYPE 2 DIABETES MELLITUS WITHOUT COMPLICATIONS (6) HLD (hyperlipidemia) Code(s): E78.5 - HYPERLIPIDEMIA, UNSPECIFIED (7) Neuropathy due to type 2 diabetes mellitus Code(s): E11.40 - TYPE 2 DIABETES MELLITUS WITH DIABETIC NEUROPATHY, UNSP (8) Obesity (BMI 30-39.9) Code(s): E66.9 - OBESITY, UNSPECIFIED (9) ARF (acute renal failure) Code(s): N17.9 - ACUTE KIDNEY FAILURE, UNSPECIFIED (10) Asthma Code(s): J45.909 - UNSPECIFIED ASTHMA, UNCOMPLICATED (11) Anemia Code(s): D64.9 - ANEMIA, UNSPECIFIED
[2018-07-28] MEDS: MONTELUKAST NA 10 MG TABLET PO SCH (21:37)
[2018-07-28] MEDS: ATORVASTATIN CA 10 MG TABLET (FP) PO SCH (21:37)
[2018-07-28] MEDS: MIRTAZAPINE 15 MG TABLET (FP) PO SCH (21:38)
[2018-07-28] MEDS: LIDOCAINE PATCH REMOVAL MC SCH (22:50)
--- NOTE | 2018-07-28 23:02 | PN ---
Progress Note (short form) - Note Progress Note: patient seen and examined Did some PT today. reports pain is better Last Vital Signs Temp Pulse Resp BP Pulse Ox 98.0 F 69 20 116/69 100 07/29/18 02:00 07/29/18 02:00 07/29/18 02:00 07/29/18 02:00 07/28/18 21:00 Cor: RSR, No murmurs, No gallops Lungs: Clear to P&A Abd: Soft, Normal bowel sounds, No organomegaly Ext:3 + edema b/l labs/meds reviewed a/p 57 year old female, with a significant past medical history of chronic back pain , h/o unprovoked RLE DVT/PE (2014, treated with anticoagulation upunt2016 and then discontinued due to frequent falls, also with superficial vein thrombosis in 06/2017 on prophy lovenox up until 3 months ago but was discontinued due to falls. Thrombophilia w/u was negative in the past.HIT negative Imaging studies -- CT and u/s extensive DVT from ivc to iliacs to b/l lower extremities. Pelvic hematoma stable on 07/19--- reviewed with dr. paige On lovenox repeat imaging in 4 weks. monitor cbc anemia--chronic disease? ESBL and proteus UTI --on ertapenem Patient with extensive family h/o autoimmune disease--will request rheumatology consult ? rehab placement
[2018-07-29] MEDS ORDERED: ENOXAPARIN NA (PORCINE) 80 MG/0.8 ML DISP.SYRIN SQ ONE ×2 (05:34→17:47)
[2018-07-29] MEDS ORDERED: ENOXAPARIN NA (PORCINE) 60 MG/0.6 ML DISP.SYRIN SQ ONE ×2 (05:34→17:47)
[2018-07-29] MEDS: ENOXAPARIN SQ SCH ×2 (06:03→18:14)
[2018-07-29] MEDS: DOCUSATE SODIUM 100 MG CAPSULE (FP) PO SCH ×3 (06:04→21:26)
[2018-07-29] MEDS: INSULIN SLIDING SCALE (NOVOLOG) 1 VIAL SQ SCH ×4 (06:04→21:59)
[2018-07-29] MEDS: INSULIN (LEVEMIR) 100 UNITS/ML UNITS SQ SCH ×2 (06:04→21:58)
[2018-07-29] MEDS: CYCLOBENZAPRINE HCL 10 MG TABLET (FP) PO PRN ×3 (06:44→21:24)
[2018-07-29] MEDS: ACETAMINOPHEN 325 MG TABLET (FP) PO PRN ×2 (06:44→21:38)
[2018-07-29 07:43] LABS: BASO % 0.9 % (0-2.0); EOS % 2.2 % (0-4.5); HEMATOCRIT 28.4 % (32.4-45.2); HEMOGLOBIN 9.3 GM/dL (10.7-15.3); LYMPH % 12.1 % (8-40); MCH 29.8 pg (25.7-33.7); MCHC 32.7 g/dl (32.0-36.0); MEAN CELL VOLUME 90.9 fl (80-96); MONO % 9.7 % (3.8-10.2); NEUT % 75.1 % (42.8-82.8); PLATELET COUNT 354 K/MM3 (134-434); RBC 3.13 M/mm3 (3.60-5.2); RDW 15.4 % (11.6-15.6)
[2018-07-29 08:59] LABS: ALBUMIN 2.5 g/dl (3.4-5.0); ALK PHOS 97 U/L (45-117); ANION GAP 7 MMOL/L (8-16); BILIRUBIN,TOTAL 0.7 mg/dL (0.2-1); BLOOD UREA NITROGEN 13 mg/dL (7-18); CALCIUM 9.1 mg/dL (8.5-10.1); CHLORIDE 104 mmol/L (98-107); CO2 28 mmol/L (21-32); CREATININE 0.8 mg/dL (0.55-1.3); GLUCOSE,RANDOM 111 mg/dL (74-106); POTASSIUM 3.8 mmol/L (3.5-5.1); SGOT/AST 32 U/L (15-37); SGPT/ALT 19 U/L (13-61); SODIUM 139 mmol/L (136-145); TOT PROT 6.5 g/dl (6.4-8.2)
[2018-07-29] MEDS ORDERED: PT OWN MED DRAWER 7, Y5N ONE ×2 (10:28→10:42)
[2018-07-29] MEDS: CALCIUM 500MG/VIT-D 200 UNITS COMBO TABLET (FP) PO SCH (10:33)
[2018-07-29] MEDS: FENOFIBRIC ACID 135 MG CAP PO SCH (10:34)
[2018-07-29] MEDS: PANTOPRAZOLE 40 MG TABLET (FP) PO SCH ×2 (10:34→21:26)
[2018-07-29] MEDS: TIOTROPIUM BROMIDE 2.5 MCG (SPIRIVA) RESPIMAT INHALER IH SCH (10:36)
[2018-07-29] MEDS: BUDESONIDE/FORMETEROL FUMARATE 160/4.5 mcg INHALER IH SCH ×2 (10:36→21:26)
--- NOTE | 2018-07-29 10:59 | PN ---
Progress Note, Physician History of Present Illness: PULMONARY ALERT,FEELING LESS LOWER EXT PAIN - Current Medication List Current Medications: Active Medications Acetaminophen (Tylenol -) 650 mg PO Q4H PRN PRN Reason: FEVER Last Admin: 07/29/18 06:44 Dose: 650 mg Atorvastatin Calcium (Lipitor -) 10 mg PO HS [facility] Last Admin: 07/28/18 21:37 Dose: 10 mg Budesonide/Formoterol Fumarate (Symbicort 160/4.5mcg -) 2 puff IH BID [facility] Last Admin: 07/29/18 10:36 Dose: 2 puff Calcium Carbonate/Cholecalciferol (Os-Ray 500+D -) 1 tab PO DAILY [facility] Last Admin: 07/29/18 10:33 Dose: 1 tab Cyclobenzaprine HCl (Flexeril -) 10 mg PO TID PRN PRN Reason: BACK PAIN Last Admin: 07/29/18 06:44 Dose: 10 mg Docusate Sodium (Colace -) 100 mg PO TID [facility] Last Admin: 07/29/18 06:04 Dose: 100 mg Enoxaparin Sodium 80 mg/ (Enoxaparin Sodium 50 mg) 130 mg SQ BID@0700,1900 [facility] Last Admin: 07/29/18 06:03 Dose: 130 mg Fenofibric Acid (Trilipix -) 135 mg PO DAILY [facility] Last Admin: 07/29/18 10:34 Dose: 135 mg Ertapenem 1 gm/ Sodium (Chloride) 50 mls @ 100 mls/hr IVPB DAILY [facility] Last Admin: 07/28/18 10:22 Dose: 100 mls/hr Insulin Aspart (Novolog Vial Sliding Scale -) 1 vial SQ ACHS [facility]; Protocol Last Admin: 07/29/18 06:04 Dose: Not Given Insulin Detemir (Levemir Vial) 60 units SQ AM [facility] Last Admin: 07/29/18 06:04 Dose: Not Given Insulin Detemir (Levemir Vial) 45 units SQ HS [facility] Last Admin: 07/28/18 21:28 Dose: Not Given Lidocaine (Lidoderm Patch -) 1 patch TP DAILY [facility] Last Admin: 07/28/18 10:23 Dose: 1 patch Methylnaltrexone [place] (Relistor -) 12 mg SQ DAILY [facility] Last Admin: 07/28/18 10:23 Dose: 12 mg Mirtazapine (Remeron -) 7.5 mg PO [facility] Last Admin: 07/28/18 21:38 Dose: 7.5 mg Miscellaneous (Lidoderm Patch Removal) 1 each MC DAILY@2200 [facility] Last Admin: 07/28/18 22:50 Dose: 1 each Montelukast Sodium (Singulair -) 10 mg PO [facility] Last Admin: 07/28/18 21:37 Dose: 10 mg Pantoprazole Sodium (Protonix -) 40 mg PO BID [facility] Last Admin: 07/29/18 10:34 Dose: 40 mg Polyethylene Glycol (Miralax (For Daily Use) -) 17 gm PO BID [facility] Last Admin: 07/28/18 21:38 Dose: Not Given Tiotropium [place] (Spiriva Respimat) 2 puff IH DAILY [facility] Last Admin: 07/29/18 10:36 Dose: 2 puff - Objective Vital Signs: Vital Signs Temperature 99.4 F 07/29/18 06:00 Pulse Rate 76 07/29/18 06:00 Respiratory Rate 20 07/29/18 06:00 Blood Pressure 118/61 07/29/18 06:00 O2 Sat by Pulse Oximetry (%) 100 07/28/18 21:00 Constitutional: Yes: Well Nourished, Calm Eyes: Yes: WNL HENT: Yes: WNL Neck: Yes: WNL Cardiovascular: Yes: Regular Rate and Rhythm, S1, S2 Respiratory: Yes: Diminished Gastrointestinal: Yes: Normal Bowel Sounds, Soft Extremities: Yes: WNL Edema: Yes Labs: CBC, BMP 07/29/18 07:15 07/29/18 07:15 INR, PTT INR 1.44 (0.83-1.09) H 07/21/18 05:30 Fibrinogen 415.0 mg/dL (238-498) D 07/18/18 05:30 Problem List - Problems (1) Anemia Code(s): D64.9 - ANEMIA, UNSPECIFIED (2) Asthma Code(s): J45.909 - UNSPECIFIED ASTHMA, UNCOMPLICATED (3) DVT of lower extremity, bilateral Code(s): I82.403 - ACUTE EMBOLISM AND THOMBOS UNSP DEEP VEINS OF LOW EXTRM, BI (4) Hematoma Code(s): T14.8XXA - OTHER INJURY OF UNSPECIFIED BODY REGION, INITIAL ENCOUNTER (5) Chronic pain Code(s): G89.29 - OTHER CHRONIC PAIN (6) GERD (gastroesophageal reflux disease) Code(s): K21.9 - GASTRO-ESOPHAGEAL REFLUX DISEASE WITHOUT ESOPHAGITIS Qualifiers: Esophagitis presence: without esophagitis Qualified Code(s): K21.9 - Gastro -esophageal reflux disease without esophagitis (7) HLD (hyperlipidemia) Code(s): E78.5 - HYPERLIPIDEMIA, UNSPECIFIED (8) HTN (hypertension) Code(s): I10 - ESSENTIAL (PRIMARY) HYPERTENSION (9) DVT (deep venous thrombosis) Code(s): I82.409 - ACUTE EMBOLISM AND THOMBOS UNSP DEEP VN UNSP LOWER EXTREMITY Qualifiers: DVT location: lower extremity Chronicity: unspecified Laterality: right Assessment/Plan ASSESSMENT AND PLAN: Pelvic Hematoma Acute Blood Loss Anemia Acute Bilateral Extensive DVTs h/o IVC filter Acute Kidney Injury Asthma Anemia Thrombocytopenia - monitor H/H - transfuse - anticoagulation - pulse checks - monitor urine output, creatinine - O2 to keep SpO2 >90% - inhaled bronchodilators as needed - rheumatology evaluation DR HOPSON
[2018-07-29] MEDS: Methylnaltrexone Bromide 12 MG/0.6 ML KIT SQ SCH (11:46)
[2018-07-29] MEDS: ERTAPENEM SODIUM 1 GM in SODIUM CHLORIDE 50 ML IVPB SCH (11:46)
[2018-07-29] MEDS: LIDOCAINE 5% TOPICAL PATCH TP SCH (11:55)
[2018-07-29] MEDS: POLYETHYLENE GLYCOL 3350 119 GM BTL PO SCH ×2 (11:56→21:26)
--- NOTE | 2018-07-29 13:23 | PN ---
Physical Exam: SUBJECTIVE: Patient seen and examined at bedside. Reports feeling slightly better today. Still complains of pain in L thigh. OBJECTIVE: Vital Signs Period Temp Pulse Resp BP Sys/Gunter Pulse Ox Last 24 Hr 98.0 F-99.4 F 69-83 18-20 107-145/61-70 100 GENERAL: A&Ox3, no acute distress EYES: PERRLA, EOMI ENT: Moist mucus membranes NECK: No JVD LUNGS: CTA, no wheezes HEART: RRR, no murmurs ABDOMEN: Obese, soft and nontender EXTREMITIES: 2+ pulses, 2+ edema noted on b/l lower extremities, extremities well perfused and warm NEUROLOGICAL: Cranial nerves II-XII intact. Laboratory Results - last 24 hr 07/25/18 07/27/18 07/28/18 06:00 07:00 17:08 WBC RBC Hgb Hct MCV MCH MCHC RDW Plt Count MPV Absolute Neuts (auto) Neutrophils % Lymphocytes % Monocytes % Eosinophils % Basophils % Nucleated RBC % Sodium Potassium Chloride Carbon Dioxide Anion Gap BUN Creatinine Creat Clearance w eGFR POC Glucometer 92 Random Glucose Calcium Total Bilirubin AST ALT Alkaline Phosphatase Total Protein Albumin BOY Screen Positive H BOY Homogeneous Pattern TNP BOY Nucleolar Pattern TNP BOY Spindle Zarina Pattern TNP BOY Midbody Pattern TNP BOY Centriole Pattern TNP BOY Nuclear Dot Pattern TNP BOY PCNA Pattern TNP BOY Nuclear Membr Pat TNP BOY Speckled Pattern 1:160 H BOY Centromere Pattern TNP Blood Type O POSITIVE Antibody Screen Negative Crossmatch See Detail 07/28/18 07/29/18 07/29/18 21:26 05:29 07:15 WBC 7.0 RBC 3.13 L Hgb 9.3 L Hct 28.4 L D MCV 90.9 MCH 29.8 MCHC 32.7 RDW 15.4 Plt Count 354 D MPV 9.0 Absolute Neuts (auto) 5.3 Neutrophils % 75.1 Lymphocytes % 12.1 D Monocytes % 9.7 Eosinophils % 2.2 Basophils % 0.9 Nucleated RBC % 0 Sodium Potassium Chloride Carbon Dioxide Anion Gap BUN Creatinine Creat Clearance w eGFR POC Glucometer 133 99 Random Glucose Calcium Total Bilirubin AST ALT Alkaline Phosphatase Total Protein Albumin BOY Screen BOY Homogeneous Pattern BOY Nucleolar Pattern BOY Spindle Zarina Pattern BOY Midbody Pattern BOY Centriole Pattern BOY Nuclear Dot Pattern BOY PCNA Pattern BOY Nuclear Membr Pat BOY Speckled Pattern BOY Centromere Pattern Blood Type Antibody Screen Crossmatch 04/02/19 04/02/19 07:15 11:58 WBC RBC Hgb Hct MCV MCH MCHC RDW Plt Count MPV Absolute Neuts (auto) Neutrophils % Lymphocytes % Monocytes % Eosinophils % Basophils % Nucleated RBC % Sodium 139 Potassium 3.8 Chloride 104 Carbon Dioxide 28 Anion Gap 7 L BUN 13 Creatinine 0.8 Creat Clearance w eGFR 73.42 POC Glucometer 102 Random Glucose 111 H Calcium 9.1 Total Bilirubin 0.7 AST 32 ALT 19 Alkaline Phosphatase 97 Total Protein 6.5 Albumin 2.5 L BOY Screen BOY Homogeneous Pattern BOY Nucleolar Pattern BOY Spindle Zar[place] Pattern BOY Midbody Pattern BOY Centriole Pattern BOY Nuclear Dot Pattern BOY PCNA Pattern BOY Nuclear Membr Pat BOY Speckled Pattern BOY Centromere Pattern Blood Type Antibody Screen Crossmatch Active Medications Generic Name Dose Route Start Last Admin Trade Name Freq PRN Reason Stop Dose Admin Acetaminophen 650 mg 07/22/18 15:49 07/29/18 06:44 Tylenol - PO 650 mg Q4H PRN Administration FEVER Atorvastatin Calcium 10 mg 07/21/18 22:00 07/28/18 21:37 Lipitor - PO 10 mg HS [facility] Administration Budesonide/Formoterol Fumarate 2 puff 07/21/18 22:00 07/29/18 10:36 Symbicort 160/4.5mcg - IH 2 puff BID [facility] Administration Calcium Carbonate/Cholecalciferol 1 tab 07/22/18 10:00 07/29/18 10:33 Os-Ray 500+D - PO 1 tab DAILY [facility] Administration Cyclobenzaprine HCl 10 mg 07/21/18 21:12 07/29/18 06:44 Flexeril - PO 10 mg TID PRN Administration BACK PAIN Docusate Sodium 100 mg 07/21/18 22:00 07/29/18 13:03 Colace - PO 100 mg TID [facility] Administration Enoxaparin Sodium 80 mg/ 130 mg 07/21/18 19:00 07/29/18 06:03 Enoxaparin Sodium 50 mg SQ 130 mg BID@0700,1900 [facility] Administration Fenofibric Acid 135 mg 07/22/18 10:00 07/29/18 10:34 Trilipix - PO 135 mg DAILY [facility] Administration Ertapenem 1 gm/ Sodium 50 mls @ 100 mls/hr 07/26/18 17:15 07/29/18 11:46 Chloride IVPB 100 mls/hr DAILY [facility] Administration Insulin Aspart 1 vial 07/21/18 22:00 07/29/18 11:59 Novolog Vial Sliding Scale - SQ Not Given ACHS [facility] Protocol Insulin Detemir 60 units 07/22/18 07:00 07/29/18 06:04 Levemir Vial SQ Not Given AM [facility] Insulin Detemir 45 units 07/21/18 22:00 07/28/18 21:28 Levemir Vial SQ Not Given HS [facility] Lidocaine 1 patch 07/22/18 10:00 07/29/18 11:55 Lidoderm Patch - TP 1 patch DAILY [facility] Administration Methylnaltrexone [place] 12 mg 07/26/18 16:00 07/29/18 11:46 Relistor - SQ 12 mg DAILY [facility] Administration Mirtazapine 7.5 mg 07/21/18 22:00 07/28/18 21:38 Remeron - PO 7.5 mg HS [facility] Administration Miscellaneous 1 each 07/21/18 22:00 07/28/18 22:50 Lidoderm Patch Removal MC 1 each DAILY@2200 [facility] Administration Montelukast Sodium 10 mg 07/21/18 22:00 07/28/18 21:37 Singulair - PO 10 mg HS [facility] Administration Pantoprazole Sodium 40 mg 07/25/18 10:00 07/29/18 10:34 Protonix - PO 40 mg BID [facility] Administration Polyethylene Glycol 17 gm 07/25/18 22:00 07/29/18 11:56 Miralax (For Daily Use) - PO Not Given BID [facility] Tiotropium [place] 2 puff 07/22/18 10:00 07/29/18 10:36 Spiriva Respimat IH 2 puff DAILY [facility] Administration ASSESSMENT/PLAN: 57 year old female hx of back pain, unprovoked DVTs/PEs since 2015 s/p IVC filter treated with lovenox until 3 months ago, when discontinued due to frequent falling Bilateral Deep Vein Thrombosis: appears to be stable now, on lovenox 130 BID -monitor for critical limb ischemia with checks for extremity warmth and pulses , pulses were dopplered today and were fine -if legs become ischemic, will need IR intervention to remove clot burden -will need aggressive PT and Rehab Pelvic Hematoma: appears stable and not increasing on new abd/pelvis CT, could be due to ? vasculitis -can continue anticoagulation Back pain: continue pain management per primary team Alex Silver, PGY2 Discussed w/ Dr. Nagel Visit type - Emergency Visit Emergency Visit: No - New Patient This patient is new to me today: No - Critical Care Critical Care patient: No
--- NOTE | 2018-07-29 13:47 | PN ---
Progress Note, Physician History of Present Illness: patient still wiht leg pain improving has remained afebrile for 2 days now - Current Medication List Current Medications: Active Medications Acetaminophen (Tylenol -) 650 mg PO Q4H PRN PRN Reason: FEVER Last Admin: 07/29/18 06:44 Dose: 650 mg Atorvastatin Calcium (Lipitor -) 10 mg PO HS [facility] Last Admin: 07/28/18 21:37 Dose: 10 mg Budesonide/Formoterol Fumarate (Symbicort 160/4.5mcg -) 2 puff IH BID [facility] Last Admin: 07/29/18 10:36 Dose: 2 puff Calcium Carbonate/Cholecalciferol (Os-Ray 500+D -) 1 tab PO DAILY [facility] Last Admin: 07/29/18 10:33 Dose: 1 tab Cyclobenzaprine HCl (Flexeril -) 10 mg PO TID PRN PRN Reason: BACK PAIN Last Admin: 07/29/18 06:44 Dose: 10 mg Docusate Sodium (Colace -) 100 mg PO TID [facility] Last Admin: 07/29/18 13:03 Dose: 100 mg Enoxaparin Sodium 80 mg/ (Enoxaparin Sodium 50 mg) 130 mg SQ BID@0700,1900 [facility] Last Admin: 07/29/18 06:03 Dose: 130 mg Fenofibric Acid (Trilipix -) 135 mg PO DAILY [facility] Last Admin: 07/29/18 10:34 Dose: 135 mg Ertapenem 1 gm/ Sodium (Chloride) 50 mls @ 100 mls/hr IVPB DAILY [facility] Last Admin: 07/29/18 11:46 Dose: 100 mls/hr Insulin Aspart (Novolog Vial Sliding Scale -) 1 vial SQ [facility]; Protocol Last Admin: 07/29/18 11:59 Dose: Not Given Insulin Detemir (Levemir Vial) 60 units SQ AM [facility] Last Admin: 07/29/18 06:04 Dose: Not Given Insulin Detemir (Levemir Vial) 45 units SQ HS [facility] Last Admin: 07/28/18 21:28 Dose: Not Given Lidocaine (Lidoderm Patch -) 1 patch TP DAILY [facility] Last Admin: 07/29/18 11:55 Dose: 1 patch Methylnaltrexone [place] (Relistor -) 12 mg SQ DAILY [facility] Last Admin: 07/29/18 11:46 Dose: 12 mg Mirtazapine (Remeron -) 7.5 mg PO [facility] Last Admin: 07/28/18 21:38 Dose: 7.5 mg Miscellaneous (Lidoderm Patch Removal) 1 each MC DAILY@2200 [facility] Last Admin: 07/28/18 22:50 Dose: 1 each Montelukast Sodium (Singulair -) 10 mg PO [facility] Last Admin: 07/28/18 21:37 Dose: 10 mg Pantoprazole Sodium (Protonix -) 40 mg PO BID [facility] Last Admin: 07/29/18 10:34 Dose: 40 mg Polyethylene Glycol (Miralax (For Daily Use) -) 17 gm PO BID [facility] Last Admin: 07/29/18 11:56 Dose: Not Given Tiotropium [place] (Spiriva Respimat) 2 puff IH DAILY [facility] Last Admin: 07/29/18 10:36 Dose: 2 puff - Objective Vital Signs: Vital Signs Temperature 99.4 F 07/29/18 06:00 Pulse Rate 76 07/29/18 06:00 Respiratory Rate 20 07/29/18 06:00 Blood Pressure 118/61 07/29/18 06:00 O2 Sat by Pulse Oximetry (%) 100 07/28/18 21:00 Constitutional: Yes: Calm, Mild Distress Cardiovascular: Yes: Regular Rate and Rhythm Respiratory: Yes: Regular, CTA Bilaterally Musculoskeletal: Yes: Other Extremities: Yes: Other (swelling) Neurological: Yes: Alert, Oriented Psychiatric: Yes: Alert, Oriented Labs: CBC, BMP 07/29/18 07:15 07/29/18 07:15 INR, PTT INR 1.44 (0.83-1.09) H 07/21/18 05:30 Fibrinogen 415.0 mg/dL (238-498) D 07/18/18 05:30 Assessment/Plan Problem List - Problems (1) DVT of lower extremity, bilateral Code(s): I82.403 - ACUTE EMBOLISM AND THOMBOS UNSP DEEP VEINS OF LOW EXTRM, BI (2) Back pain Code(s): M54.9 - DORSALGIA, UNSPECIFIED Qualifiers: Back pain location: low back pain Chronicity: unspecified Back pain laterality: right Sciatica presence: unspecified whether sciatica present Qualified Code(s): M54.5 - Low back pain (3) Hyperglycemia Code(s): R73.9 - HYPERGLYCEMIA, UNSPECIFIED (4) Injury of right foot Code(s): S99.921A - UNSPECIFIED INJURY OF RIGHT FOOT, INITIAL ENCOUNTER Qualifiers: Encounter type: initial encounter Qualified Code(s): S99.921A - Unspecified injury of right foot, initial encounter (5) URI (upper respiratory infection) Code(s): J06.9 - ACUTE UPPER RESPIRATORY INFECTION, UNSPECIFIED 6 uti patients urine has esbl plan will see if patient does not spike then will stop abx rest as per the team
--- NOTE | 2018-07-29 16:09 | PN ---
Progress Note (short form) - Note Progress Note: Patient seen and examined Complains of burning sensation left leg and back pains Last Vital Signs Temp Pulse Resp BP Pulse Ox 98.8 F 75 20 125/74 100 07/29/18 13:53 07/29/18 13:53 07/29/18 13:53 07/29/18 13:53 07/29/18 09:00 HEENT: [place], EOM Intact Oropharynx: No thrush, No mucositis Cor: RSR, No murmurs, No gallops Lungs: diminished breath sounds, poor inspiratory effort Abd: Soft, Normal bowel sounds, No organomegaly Ext: bilateral LE edema L>R Skin: No rashes, Integument intact CBC, BMP 07/29/18 07:15 07/29/18 07:15 Current Medications Generic Name Dose Route Start Last Admin Trade Name Freq PRN Reason Stop Dose Admin Acetaminophen 650 mg 07/22/18 15:49 07/29/18 06:44 Tylenol - PO 650 mg Q4H PRN Administration FEVER Atorvastatin Calcium 10 mg 07/21/18 22:00 07/28/18 21:37 Lipitor - PO 10 mg HS [facility] Administration Budesonide/Formoterol Fumarate 2 puff 07/21/18 22:00 07/29/18 10:36 Symbicort 160/4.5mcg - IH 2 puff BID [facility] Administration Calcium Carbonate/Cholecalciferol 1 tab 07/22/18 10:00 07/29/18 10:33 Os-Ray 500+D - PO 1 tab DAILY [facility] Administration Cyclobenzaprine HCl 10 mg 07/21/18 21:12 07/29/18 06:44 Flexeril - PO 10 mg TID PRN Administration BACK PAIN Docusate Sodium 100 mg 07/21/18 22:00 07/29/18 13:03 Colace - PO 100 mg TID [facility] Administration Enoxaparin Sodium 80 mg/ 130 mg 07/21/18 19:00 07/29/18 06:03 Enoxaparin Sodium 50 mg SQ 130 mg BID@0700,1900 [facility] Administration Fenofibric Acid 135 mg 07/22/18 10:00 07/29/18 10:34 Trilipix - PO 135 mg DAILY [facility] Administration Ertapenem 1 gm/ Sodium 50 mls @ 100 mls/hr 07/26/18 17:15 07/29/18 11:46 Chloride IVPB 100 mls/hr DAILY [facility] Administration Insulin Aspart 1 vial 07/21/18 22:00 07/29/18 11:59 Novolog Vial Sliding Scale - SQ Not Given ACHS [facility] Protocol Insulin Detemir 60 units 07/22/18 07:00 07/29/18 06:04 Levemir Vial SQ Not Given AM [facility] Insulin Detemir 45 units 07/21/18 22:00 07/28/18 21:28 Levemir Vial SQ Not Given HS [facility] Lidocaine 1 patch 07/22/18 10:00 07/29/18 11:55 Lidoderm Patch - TP 1 patch DAILY [facility] Administration Methylnaltrexone [place] 12 mg 07/26/18 16:00 07/29/18 11:46 Relistor - SQ 12 mg DAILY [facility] Administration Mirtazapine 7.5 mg 07/21/18 22:00 07/28/18 21:38 Remeron - PO 7.5 mg HS [facility] Administration Miscellaneous 1 each 07/21/18 22:00 07/28/18 22:50 Lidoderm Patch Removal MC 1 each DAILY@2200 [facility] Administration Montelukast Sodium 10 mg 07/21/18 22:00 07/28/18 21:37 Singulair - PO 10 mg HS [facility] Administration Pantoprazole Sodium 40 mg 07/25/18 10:00 07/29/18 10:34 Protonix - PO 40 mg BID [facility] Administration Polyethylene Glycol 17 gm 07/25/18 22:00 07/29/18 11:56 Miralax (For Daily Use) - PO Not Given BID [facility] Tiotropium [place] 2 puff 07/22/18 10:00 07/29/18 10:36 Spiriva Respimat IH 2 puff DAILY [facility] Administration Impression: LOwer extremity DVT Pelvic hematoma Anemia 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
[2018-07-29] MEDS: oxyCODONE HCL 5 MG TABLET PO PRN (18:13)
[2018-07-29 18:58] LABS: EPI CELLS 13.2 /HPF (0-5); PH,URINE 6.5 (5.0-8.0); URINE APPEARANCE CLEAR; URINE BACTERIA 0.3 /hpf (NEGATIVE); URINE BILIRUBIN NEGATIVE (NEGATIVE); URINE CASTS 7 /hpf (0-8); URINE COLOR YELLOW; URINE GLUCOSE (UA) NEGATIVE (NEGATIVE); URINE KETONE TRACE (NEGATIVE); URINE LEUK ESTERASE 2+ (NEGATIVE); URINE NITRITE NEGATIVE (NEGATIVE); URINE PROTEIN TRACE (NEGATIVE); URINE RBC 4 /hpf (0-4); URINE WBC 6 /hpf (0-5)
[2018-07-29] MEDS: ATORVASTATIN CA 10 MG TABLET (FP) PO SCH (21:24)
[2018-07-29] MEDS: MIRTAZAPINE 15 MG TABLET (FP) PO SCH (21:24)
[2018-07-29] MEDS: MONTELUKAST NA 10 MG TABLET PO SCH (21:24)
[2018-07-29] MEDS: LIDOCAINE PATCH REMOVAL MC SCH (21:59)
--- NOTE | 2018-07-29 23:49 | PN ---
Progress Note, Physician History of Present Illness: Pt still complains of pain and swelling of legs - Current Medication List Current Medications: Active Medications Acetaminophen (Tylenol -) 650 mg PO Q4H PRN PRN Reason: FEVER Last Admin: 07/29/18 21:38 Dose: 650 mg Atorvastatin Calcium (Lipitor -) 10 mg PO HS [facility] Last Admin: 07/29/18 21:24 Dose: 10 mg Budesonide/Formoterol Fumarate (Symbicort 160/4.5mcg -) 2 puff IH BID [facility] Last Admin: 07/29/18 21:26 Dose: 2 puff Calcium Carbonate/Cholecalciferol (Os-Ray 500+D -) 1 tab PO DAILY [facility] Last Admin: 07/29/18 10:33 Dose: 1 tab Cyclobenzaprine HCl (Flexeril -) 10 mg PO TID PRN PRN Reason: BACK PAIN Last Admin: 07/29/18 21:24 Dose: 10 mg Docusate Sodium (Colace -) 100 mg PO TID [facility] Last Admin: 07/29/18 21:26 Dose: Not Given Enoxaparin Sodium 80 mg/ (Enoxaparin Sodium 50 mg) 130 mg SQ BID@0700,1900 [facility] Last Admin: 07/29/18 18:14 Dose: 130 mg Fenofibric Acid (Trilipix -) 135 mg PO DAILY [facility] Last Admin: 07/29/18 10:34 Dose: 135 mg Ertapenem 1 gm/ Sodium (Chloride) 50 mls @ 100 mls/hr IVPB DAILY [facility] Last Admin: 07/29/18 11:46 Dose: 100 mls/hr Insulin Aspart (Novolog Vial Sliding Scale -) 1 vial SQ [facility]; Protocol Last Admin: 07/29/18 21:59 Dose: Not Given Insulin Detemir (Levemir Vial) 60 units SQ AM [facility] Last Admin: 07/29/18 06:04 Dose: Not Given Insulin Detemir (Levemir Vial) 45 units SQ HS [facility] Last Admin: 07/29/18 21:58 Dose: Not Given Lidocaine (Lidoderm Patch -) 1 patch TP DAILY [facility] Last Admin: 07/29/18 11:55 Dose: 1 patch Methylnaltrexone [place] (Relistor -) 12 mg SQ DAILY [facility] Last Admin: 07/29/18 11:46 Dose: 12 mg Mirtazapine (Remeron -) 7.5 mg PO HS [facility] Last Admin: 07/29/18 21:24 Dose: 7.5 mg Miscellaneous (Lidoderm Patch Removal) 1 each MC DAILY@2200 [facility] Last Admin: 07/29/18 21:59 Dose: 1 each Montelukast Sodium (Singulair -) 10 mg PO HS [facility] Last Admin: 07/29/18 21:24 Dose: 10 mg Oxycodone HCl (Roxicodone -) 10 mg PO Q12H PRN PRN Reason: PAIN SCALE 4-10 Last Admin: 07/29/18 18:13 Dose: 10 mg Pantoprazole Sodium (Protonix -) 40 mg PO BID [facility] Last Admin: 07/29/18 21:26 Dose: 40 mg Polyethylene Glycol (Miralax (For Daily Use) -) 17 gm PO BID [facility] Last Admin: 07/29/18 21:26 Dose: Not Given Tiotropium [place] (Spiriva Respimat) 2 puff IH DAILY [facility] Last Admin: 07/29/18 10:36 Dose: 2 puff - Objective Vital Signs: Vital Signs Temperature 98.6 F 07/29/18 17:00 Pulse Rate 79 07/29/18 17:00 Respiratory Rate 20 07/29/18 17:00 Blood Pressure 127/75 07/29/18 17:00 O2 Sat by Pulse Oximetry (%) 100 07/29/18 09:00 Constitutional: Yes: Well Nourished Cardiovascular: Yes: WNL, Regular Rate and Rhythm Respiratory: Yes: WNL, Regular, CTA Bilaterally Gastrointestinal: Yes: WNL, Normal Bowel Sounds, Soft Edema: Yes Edema: LLE: 1+, RLE: 1+ Labs: CBC, BMP 07/29/18 07:15 07/29/18 07:15 INR, PTT INR 1.44 (0.83-1.09) H 07/21/18 05:30 Fibrinogen 415.0 mg/dL (238-498) D 07/18/18 05:30 Problem List - Problems (1) Fever Assessment/Plan: Cont IV antibxs(Invanz) BC from 07/21/18 remains negative WBC remains rufina Code(s): R50.9 - FEVER, UNSPECIFIED (2) DVT of lower extremity, bilateral Assessment/Plan: Cont lovenox DVT extending from IVC filter to inf vena cava/common iliac/external iliac B/L Monitor for bleeding H/O IVC filter Encourage OOB w/ ambulation Code(s): I82.403 - ACUTE EMBOLISM AND THOMBOS UNSP DEEP VEINS OF LOW EXTRM, BI (3) Hematoma Assessment/Plan: CT scan abd showed: No change in pelvic hematomas and multiple thrombosis's Monitor for bleeding Code(s): T14.8XXA - OTHER INJURY OF UNSPECIFIED BODY REGION, INITIAL ENCOUNTER (4) Back pain Assessment/Plan: Chronic back pain Pt now w/ increasedd constipation Check abdominal FUA Will need PT and enocurage OOB to chair Cont lidocaine/oxycodone/flexeril Cont stool softners Code(s): M54.9 - DORSALGIA, UNSPECIFIED Qualifiers: Back pain location: low back pain Chronicity: unspecified Back pain laterality: right Sciatica presence: unspecified whether sciatica present Qualified Code(s): M54.5 - Low back pain (5) Diabetes Assessment/Plan: Cont sliding scale w/ coverage/levemir Code(s): E11.9 - TYPE 2 DIABETES MELLITUS WITHOUT COMPLICATIONS (6) HLD (hyperlipidemia) Assessment/Plan: Cont lipitor/fenofibrate Code(s): E78.5 - HYPERLIPIDEMIA, UNSPECIFIED (7) Neuropathy due to type 2 diabetes mellitus Code(s): E11.40 - TYPE 2 DIABETES MELLITUS WITH DIABETIC NEUROPATHY, UNSP (8) Obesity (BMI 30-39.9) Code(s): E66.9 - OBESITY, UNSPECIFIED (9) ARF (acute renal failure) Assessment/Plan: Creatinine/Bun improved and now normal Code(s): N17.9 - ACUTE KIDNEY FAILURE, UNSPECIFIED (10) Asthma Code(s): J45.909 - UNSPECIFIED ASTHMA, UNCOMPLICATED (11) Anemia Code(s): D64.9 - ANEMIA, UNSPECIFIED
[2018-07-30] MEDS ORDERED: ENOXAPARIN NA (PORCINE) 60 MG/0.6 ML DISP.SYRIN SQ ONE ×2 (05:50→18:14)
[2018-07-30] MEDS ORDERED: ENOXAPARIN NA (PORCINE) 80 MG/0.8 ML DISP.SYRIN SQ ONE ×2 (05:50→18:14)
[2018-07-30] MEDS: INSULIN (LEVEMIR) 100 UNITS/ML UNITS SQ SCH ×2 (06:02→22:02)
[2018-07-30] MEDS: DOCUSATE SODIUM 100 MG CAPSULE (FP) PO SCH ×3 (06:02→22:01)
[2018-07-30] MEDS: INSULIN SLIDING SCALE (NOVOLOG) 1 VIAL SQ SCH ×4 (06:02→22:02)
[2018-07-30] MEDS: ENOXAPARIN SQ SCH ×2 (06:13→18:15)
[2018-07-30 07:30] LABS: BASO % 0.6 % (0-2.0); EOS % 3.2 % (0-4.5); HEMATOCRIT 28.6 % (32.4-45.2); HEMOGLOBIN 9.2 GM/dL (10.7-15.3); LYMPH % 16.8 % (8-40); MCHC 32.3 g/dl (32.0-36.0); MEAN CELL VOLUME 89.8 fl (80-96); MEAN PLT VOLUME 8.9 fl (7.5-11.1); NEUT % 68.4 % (42.8-82.8); PLATELET COUNT 348 K/MM3 (134-434); RBC 3.18 M/mm3 (3.60-5.2); RDW 15.1 % (11.6-15.6); WHITE BLOOD COUNT 5.6 K/mm3 (4.0-10.0)
[2018-07-30 08:03] LABS: ALBUMIN 2.4 g/dl (3.4-5.0); ALK PHOS 90 U/L (45-117); ANION GAP 5 MMOL/L (8-16); BILIRUBIN,TOTAL 0.5 mg/dL (0.2-1); BLOOD UREA NITROGEN 13 mg/dL (7-18); CALCIUM 8.6 mg/dL (8.5-10.1); CHLORIDE 103 mmol/L (98-107); CO2 30 mmol/L (21-32); CREATININE 0.7 mg/dL (0.55-1.3); GLUCOSE,RANDOM 119 mg/dL (74-106); POTASSIUM 4.1 mmol/L (3.5-5.1); SGOT/AST 26 U/L (15-37); SGPT/ALT 17 U/L (13-61); SODIUM 138 mmol/L (136-145); TOT PROT 6.1 g/dl (6.4-8.2)
--- NOTE | 2018-07-30 10:18 | PN ---
Physical Exam: SUBJECTIVE: Patient seen and examined at bedside. Still complains of pain in L thigh. OBJECTIVE: Vital Signs Period Temp Pulse Resp BP Sys/Gunter Pulse Ox Last 24 Hr 97.6 F-99.2 F 75-84 20-20 114-130/55-75 93 GENERAL: A&Ox3, no acute distress EYES: PERRLA, EOMI ENT: Moist mucus membranes NECK: No JVD LUNGS: CTA, no wheezes HEART: RRR, no murmurs ABDOMEN: Obese, soft and nontender EXTREMITIES: 2+ pulses, 2+ edema noted on b/l lower extremities, extremities well perfused and warm NEUROLOGICAL: Cranial nerves II-XII intact. Laboratory Results - last 24 hr 07/29/18 07/29/18 07/29/18 11:58 16:53 17:00 WBC RBC Hgb Hct MCV MCH MCHC RDW Plt Count MPV Absolute Neuts (auto) Neutrophils % Lymphocytes % Monocytes % Eosinophils % Basophils % Nucleated RBC % Sodium Potassium Chloride Carbon Dioxide Anion Gap BUN Creatinine Creat Clearance w eGFR POC Glucometer 102 112 Random Glucose Calcium Total Bilirubin AST ALT Alkaline Phosphatase Total Protein Albumin Urine Color Yellow Urine Appearance Clear Urine pH 6.5 Ur Specific [place] 1.023 Urine Protein Trace Urine Glucose (UA) Negative Urine Ketones Trace H Urine Blood Negative Urine Nitrite Negative Urine Bilirubin Negative Urine Urobilinogen 1.0 Ur Leukocyte Esterase 2+ H Urine WBC (Auto) 6 Urine RBC (Auto) 4 Urine Casts (Auto) 7 U Epithel Cells (Auto) 13.2 Urine Bacteria (Auto) 0.3 07/29/18 07/30/18 07/30/18 21:55 05:42 06:30 WBC 5.6 RBC 3.18 L Hgb 9.2 L Hct 28.6 L MCV 89.8 MCH 29.0 MCHC 32.3 RDW 15.1 Plt Count 348 MPV 8.9 Absolute Neuts (auto) 3.8 Neutrophils % 68.4 Lymphocytes % 16.8 D Monocytes % 11.0 H Eosinophils % 3.2 Basophils % 0.6 Nucleated RBC % 0 Sodium Potassium Chloride Carbon Dioxide Anion Gap BUN Creatinine Creat Clearance w eGFR POC Glucometer 129 115 Random Glucose Calcium Total Bilirubin AST ALT Alkaline Phosphatase Total Protein Albumin Urine Color Urine Appearance Urine pH Ur Specific [place] Urine Protein Urine Glucose (UA) Urine Ketones Urine Blood Urine Nitrite Urine Bilirubin Urine Urobilinogen Ur Leukocyte Esterase Urine WBC (Auto) Urine RBC (Auto) Urine Casts (Auto) U Epithel Cells (Auto) Urine Bacteria (Auto) 07/30/18 06:30 WBC RBC Hgb Hct MCV MCH MCHC RDW Plt Count MPV Absolute Neuts (auto) Neutrophils % Lymphocytes % Monocytes % Eosinophils % Basophils % Nucleated RBC % Sodium 138 Potassium 4.1 Chloride 103 Carbon Dioxide 30 Anion Gap 5 L BUN 13 Creatinine 0.7 Creat Clearance w eGFR 85.65 POC Glucometer Random Glucose 119 H Calcium 8.6 Total Bilirubin 0.5 AST 26 ALT 17 Alkaline Phosphatase 90 Total Protein 6.1 L Albumin 2.4 L Urine Color Urine Appearance Urine pH Ur Specific [place] Urine Protein Urine Glucose (UA) Urine Ketones Urine Blood Urine Nitrite Urine Bilirubin Urine Urobilinogen Ur Leukocyte Esterase Urine WBC (Auto) Urine RBC (Auto) Urine Casts (Auto) U Epithel Cells (Auto) Urine Bacteria (Auto) Active Medications Generic Name Dose Route Start Last Admin Trade Name Freq PRN Reason Stop Dose Admin Acetaminophen 650 mg 07/22/18 15:49 07/29/18 21:38 Tylenol - PO 650 mg Q4H PRN Administration FEVER Atorvastatin Calcium 10 mg 07/21/18 22:00 07/29/18 21:24 Lipitor - PO 10 mg HS [facility] Administration Budesonide/Formoterol Fumarate 2 puff 07/21/18 22:00 07/29/18 21:26 Symbicort 160/4.5mcg - IH 2 puff BID [facility] Administration Calcium Carbonate/Cholecalciferol 1 tab 07/22/18 10:00 07/29/18 10:33 Os-Ray 500+D - PO 1 tab DAILY [facility] Administration Cyclobenzaprine HCl 10 mg 07/21/18 21:12 07/29/18 21:24 Flexeril - PO 10 mg TID PRN Administration BACK PAIN Docusate Sodium 100 mg 07/21/18 22:00 07/30/18 06:02 Colace - PO Not Given TID [facility] Enoxaparin Sodium 80 mg/ 130 mg 07/21/18 19:00 07/30/18 06:13 Enoxaparin Sodium 50 mg SQ 130 mg BID@0700,1900 [facility] Administration Fenofibric Acid 135 mg 07/22/18 10:00 07/29/18 10:34 Trilipix - PO 135 mg DAILY [facility] Administration Ertapenem 1 gm/ Sodium 50 mls @ 100 mls/hr 07/26/18 17:15 07/29/18 11:46 Chloride IVPB 100 mls/hr DAILY [facility] Administration Insulin Aspart 1 vial 07/21/18 22:00 07/30/18 06:02 Novolog Vial Sliding Scale - SQ Not Given ACHS [facility] Protocol Insulin Detemir 60 units 07/22/18 07:00 07/30/18 06:02 Levemir Vial SQ Not Given AM [facility] Insulin Detemir 45 units 07/21/18 22:00 07/29/18 21:58 Levemir Vial SQ Not Given HS [facility] Lidocaine 1 patch 07/22/18 10:00 07/29/18 11:55 Lidoderm Patch - TP 1 patch DAILY [facility] Administration Methylnaltrexone [place] 12 mg 07/26/18 16:00 07/29/18 11:46 Relistor - SQ 12 mg DAILY [facility] Administration Mirtazapine 7.5 mg 07/21/18 22:00 07/29/18 21:24 Remeron - PO 7.5 mg HS [facility] Administration Miscellaneous 1 each 07/21/18 22:00 07/29/18 21:59 Lidoderm Patch Removal MC 1 each DAILY@2200 [facility] Administration Montelukast Sodium 10 mg 07/21/18 22:00 07/29/18 21:24 Singulair - PO 10 mg HS [facility] Administration Oxycodone HCl 10 mg 07/29/18 18:06 07/29/18 18:13 Roxicodone - PO 10 mg Q12H PRN Administration PAIN SCALE 4-10 Pantoprazole Sodium 40 mg 07/25/18 10:00 07/29/18 21:26 Protonix - PO 40 mg BID [facility] Administration Polyethylene Glycol 17 gm 07/25/18 22:00 07/29/18 21:26 Miralax (For Daily Use) - PO Not Given BID [facility] Tiotropium [place] 2 puff 07/22/18 10:00 07/29/18 10:36 Spiriva Respimat IH 2 puff DAILY [facility] Administration ASSESSMENT/PLAN: 57 year old female hx of back pain, 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 vasculitis -can continue anticoagulation Back pain: continue pain management per primary team Alex Silver, PGY2 Discussed w/ Dr. Nagel Visit type - Emergency Visit Emergency Visit: No - New Patient This patient is new to me today: No - Critical Care Critical Care patient: No
[2018-07-30] MEDS ORDERED: PT OWN MED DRAWER 7, Y5N ONE ×2 (10:45→12:51)
[2018-07-30] MEDS: ERTAPENEM SODIUM 1 GM in SODIUM CHLORIDE 50 ML IVPB SCH (10:51)
[2018-07-30] MEDS: oxyCODONE HCL 5 MG TABLET PO PRN ×2 (10:51→22:01)
[2018-07-30] MEDS: PANTOPRAZOLE 40 MG TABLET (FP) PO SCH ×2 (10:53→22:01)
[2018-07-30] MEDS: ACETAMINOPHEN 325 MG TABLET (FP) PO PRN ×2 (10:53→18:21)
[2018-07-30] MEDS: POLYETHYLENE GLYCOL 3350 119 GM BTL PO SCH ×2 (10:54→22:00)
[2018-07-30] MEDS: LIDOCAINE 5% TOPICAL PATCH TP SCH (10:54)
[2018-07-30] MEDS: CALCIUM 500MG/VIT-D 200 UNITS COMBO TABLET (FP) PO SCH (10:54)
[2018-07-30] MEDS: FENOFIBRIC ACID 135 MG CAP PO SCH (10:55)
[2018-07-30] MEDS: BUDESONIDE/FORMETEROL FUMARATE 160/4.5 mcg INHALER IH SCH ×2 (11:00→22:01)
[2018-07-30] MEDS: TIOTROPIUM BROMIDE 2.5 MCG (SPIRIVA) RESPIMAT INHALER IH SCH (11:00)
--- NOTE | 2018-07-30 11:29 | PN ---
Progress Note, Physician History of Present Illness: pain otherwise stable - Current Medication List Current Medications: Active Medications Acetaminophen (Tylenol -) 650 mg PO Q4H PRN PRN Reason: FEVER Last Admin: 07/30/18 10:53 Dose: 650 mg Atorvastatin Calcium (Lipitor -) 10 mg PO HS [facility] Last Admin: 07/29/18 21:24 Dose: 10 mg Budesonide/Formoterol Fumarate (Symbicort 160/4.5mcg -) 2 puff IH BID [facility] Last Admin: 07/30/18 11:00 Dose: 2 puff Calcium Carbonate/Cholecalciferol (Os-Ray 500+D -) 1 tab PO DAILY [facility] Last Admin: 07/30/18 10:54 Dose: 1 tab Cyclobenzaprine HCl (Flexeril -) 10 mg PO TID PRN PRN Reason: BACK PAIN Last Admin: 07/29/18 21:24 Dose: 10 mg Docusate Sodium (Colace -) 100 mg PO TID [facility] Last Admin: 07/30/18 06:02 Dose: Not Given Enoxaparin Sodium 80 mg/ (Enoxaparin Sodium 50 mg) 130 mg SQ BID@0700,1900 [facility] Last Admin: 07/30/18 06:13 Dose: 130 mg Fenofibric Acid (Trilipix -) 135 mg PO DAILY [facility] Last Admin: 07/30/18 10:55 Dose: 135 mg Ertapenem 1 gm/ Sodium (Chloride) 50 mls @ 100 mls/hr IVPB DAILY [facility] Last Admin: 07/30/18 10:51 Dose: 100 mls/hr Insulin Aspart (Novolog Vial Sliding Scale -) 1 vial SQ ACHS [facility]; Protocol Last Admin: 07/30/18 06:02 Dose: Not Given Insulin Detemir (Levemir Vial) 60 units SQ AM [facility] Last Admin: 07/30/18 06:02 Dose: Not Given Insulin Detemir (Levemir Vial) 45 units SQ HS [facility] Last Admin: 07/29/18 21:58 Dose: Not Given Lidocaine (Lidoderm Patch -) 1 patch TP DAILY [facility] Last Admin: 07/30/18 10:54 Dose: 1 patch Methylnaltrexone [place] (Relistor -) 12 mg SQ DAILY [facility] Last Admin: 07/29/18 11:46 Dose: 12 mg Mirtazapine (Remeron -) 7.5 mg PO HS [facility] Last Admin: 07/29/18 21:24 Dose: 7.5 mg Miscellaneous (Lidoderm Patch Removal) 1 each MC DAILY@2200 [facility] Last Admin: 07/29/18 21:59 Dose: 1 each Montelukast Sodium (Singulair -) 10 mg PO [facility] Last Admin: 07/29/18 21:24 Dose: 10 mg Oxycodone HCl (Roxicodone -) 10 mg PO Q12H PRN PRN Reason: PAIN SCALE 4-10 Last Admin: 07/30/18 10:51 Dose: 10 mg Pantoprazole Sodium (Protonix -) 40 mg PO BID [facility] Last Admin: 07/30/18 10:53 Dose: 40 mg Polyethylene Glycol (Miralax (For Daily Use) -) 17 gm PO BID [facility] Last Admin: 07/30/18 10:54 Dose: 17 grams Tiotropium [place] (Spiriva Respimat) 2 puff IH DAILY [facility] Last Admin: 07/30/18 11:00 Dose: 2 puff - Objective Vital Signs: Vital Signs Temperature 97.6 F 07/30/18 05:56 Pulse Rate 75 07/30/18 05:56 Respiratory Rate 20 07/30/18 05:56 Blood Pressure 120/57 L 07/30/18 05:56 O2 Sat by Pulse Oximetry (%) 93 L 07/29/18 21:00 Constitutional: Yes: Calm, Mild Distress, Obese Cardiovascular: Yes: Regular Rate and Rhythm Respiratory: Yes: Regular Gastrointestinal: Yes: Normal Bowel Sounds, Soft Musculoskeletal: Yes: WNL Extremities: Yes: Other Neurological: Yes: Alert, Oriented Labs: CBC, BMP 07/30/18 06:30 07/30/18 06:30 INR, PTT INR 1.44 (0.83-1.09) H 07/21/18 05:30 Fibrinogen 415.0 mg/dL (238-498) D 07/18/18 05:30 Assessment/Plan Problem List - Problems (1) DVT of lower extremity, bilateral Code(s): I82.403 - ACUTE EMBOLISM AND THOMBOS UNSP DEEP VEINS OF LOW EXTRM, BI (2) Back pain Code(s): M54.9 - DORSALGIA, UNSPECIFIED Qualifiers: Back pain location: low back pain Chronicity: unspecified Back pain laterality: right Sciatica presence: unspecified whether sciatica present Qualified Code(s): M54.5 - Low back pain (3) Hyperglycemia Code(s): R73.9 - HYPERGLYCEMIA, UNSPECIFIED (4) Injury of right foot Code(s): S99.921A - UNSPECIFIED INJURY OF RIGHT FOOT, INITIAL ENCOUNTER Qualifiers: Encounter type: initial encounter Qualified Code(s): S99.921A - Unspecified injury of right foot, initial encounter (5) URI (upper respiratory infection) Code(s): J06.9 - ACUTE UPPER RESPIRATORY INFECTION, UNSPECIFIED 6 uti plan stable pain mgmt no other issues physio rest as per the team
--- NOTE | 2018-07-30 12:11 | PN ---
Progress Note, Physician History of Present Illness: PULMONARY ALERT,-SOB,+ LOWER EXT PAIN L>R - Current Medication List Current Medications: Active Medications Acetaminophen (Tylenol -) 650 mg PO Q4H PRN PRN Reason: FEVER Last Admin: 07/30/18 10:53 Dose: 650 mg Atorvastatin Calcium (Lipitor -) 10 mg PO HS [facility] Last Admin: 07/29/18 21:24 Dose: 10 mg Budesonide/Formoterol Fumarate (Symbicort 160/4.5mcg -) 2 puff IH BID [facility] Last Admin: 07/30/18 11:00 Dose: 2 puff Calcium Carbonate/Cholecalciferol (Os-Ray 500+D -) 1 tab PO DAILY [facility] Last Admin: 07/30/18 10:54 Dose: 1 tab Cyclobenzaprine HCl (Flexeril -) 10 mg PO TID PRN PRN Reason: BACK PAIN Last Admin: 07/29/18 21:24 Dose: 10 mg Docusate Sodium (Colace -) 100 mg PO TID [facility] Last Admin: 07/30/18 06:02 Dose: Not Given Enoxaparin Sodium 80 mg/ (Enoxaparin Sodium 50 mg) 130 mg SQ BID@0700,1900 [facility] Last Admin: 07/30/18 06:13 Dose: 130 mg Fenofibric Acid (Trilipix -) 135 mg PO DAILY [facility] Last Admin: 07/30/18 10:55 Dose: 135 mg Ertapenem 1 gm/ Sodium (Chloride) 50 mls @ 100 mls/hr IVPB DAILY [facility] Last Admin: 07/30/18 10:51 Dose: 100 mls/hr Insulin Aspart (Novolog Vial Sliding Scale -) 1 vial SQ ACHS [facility]; Protocol Last Admin: 07/30/18 11:37 Dose: Not Given Insulin Detemir (Levemir Vial) 60 units SQ AM [facility] Last Admin: 07/30/18 06:02 Dose: Not Given Insulin Detemir (Levemir Vial) 45 units SQ HS [facility] Last Admin: 07/29/18 21:58 Dose: Not Given Lidocaine (Lidoderm Patch -) 1 patch TP DAILY [facility] Last Admin: 07/30/18 10:54 Dose: 1 patch Methylnaltrexone [place] (Relistor -) 12 mg SQ DAILY [facility] Last Admin: 07/29/18 11:46 Dose: 12 mg Mirtazapine (Remeron -) 7.5 mg PO [facility] Last Admin: 07/29/18 21:24 Dose: 7.5 mg Miscellaneous (Lidoderm Patch Removal) 1 each MC DAILY@2200 [facility] Last Admin: 07/29/18 21:59 Dose: 1 each Montelukast Sodium (Singulair -) 10 mg PO [facility] Last Admin: 07/29/18 21:24 Dose: 10 mg Oxycodone HCl (Roxicodone -) 10 mg PO Q12H PRN PRN Reason: PAIN SCALE 4-10 Last Admin: 07/30/18 10:51 Dose: 10 mg Pantoprazole Sodium (Protonix -) 40 mg PO BID [facility] Last Admin: 07/30/18 10:53 Dose: 40 mg Polyethylene Glycol (Miralax (For Daily Use) -) 17 gm PO BID [facility] Last Admin: 07/30/18 10:54 Dose: 17 grams Tiotropium [place] (Spiriva Respimat) 2 puff IH DAILY [facility] Last Admin: 07/30/18 11:00 Dose: 2 puff - Objective Vital Signs: Vital Signs Temperature 97.6 F 07/30/18 05:56 Pulse Rate 75 07/30/18 05:56 Respiratory Rate 20 07/30/18 09:00 Blood Pressure 120/57 L 07/30/18 05:56 O2 Sat by Pulse Oximetry (%) 96 07/30/18 09:00 Constitutional: Yes: Well Nourished, Calm, Obese Eyes: Yes: WNL HENT: Yes: WNL Neck: Yes: WNL Cardiovascular: Yes: Regular Rate and Rhythm, S1, S2 Respiratory: Yes: Diminished Gastrointestinal: Yes: Soft, Abdomen, Obese Extremities: Yes: WNL Edema: Yes Labs: CBC, BMP 07/30/18 06:30 07/30/18 06:30 INR, PTT INR 1.44 (0.83-1.09) H 07/21/18 05:30 Fibrinogen 415.0 mg/dL (238-498) D 07/18/18 05:30 Problem List - Problems (1) Anemia Code(s): D64.9 - ANEMIA, UNSPECIFIED (2) Asthma Code(s): J45.909 - UNSPECIFIED ASTHMA, UNCOMPLICATED (3) DVT of lower extremity, bilateral Code(s): I82.403 - ACUTE EMBOLISM AND THOMBOS UNSP DEEP VEINS OF LOW EXTRM, BI (4) Hematoma Code(s): T14.8XXA - OTHER INJURY OF UNSPECIFIED BODY REGION, INITIAL ENCOUNTER (5) Chronic pain Code(s): G89.29 - OTHER CHRONIC PAIN (6) GERD (gastroesophageal reflux disease) Code(s): K21.9 - GASTRO-ESOPHAGEAL REFLUX DISEASE WITHOUT ESOPHAGITIS Qualifiers: Esophagitis presence: without esophagitis Qualified Code(s): K21.9 - Gastro -esophageal reflux disease without esophagitis (7) HLD (hyperlipidemia) Code(s): E78.5 - HYPERLIPIDEMIA, UNSPECIFIED (8) HTN (hypertension) Code(s): I10 - ESSENTIAL (PRIMARY) HYPERTENSION (9) DVT (deep venous thrombosis) Code(s): I82.409 - ACUTE EMBOLISM AND THOMBOS UNSP DEEP VN UNSP LOWER EXTREMITY Qualifiers: DVT location: lower extremity Chronicity: unspecified Laterality: right Assessment/Plan ASSESSMENT AND PLAN: Pelvic Hematoma Acute Blood Loss Anemia Acute Bilateral Extensive DVTs h/o IVC filter Acute Kidney Injury Asthma Anemia Thrombocytopenia - monitor H/H - transfuse - anticoagulation - pulse checks - monitor urine output, creatinine - O2 to keep SpO2 >90% - inhaled bronchodilators as needed DR HOPSON
[2018-07-30] MEDS: Methylnaltrexone Bromide 12 MG/0.6 ML KIT SQ SCH (12:52)
--- NOTE | 2018-07-30 17:06 | PN ---
Progress Note (short form) - Note Progress Note: 57yo F h/o extensive DVT in bilateral femoral and IVC. Pt states that she continues to have leg pain, but has been walking with a walker. Pt currently on Lovenox as per Hematology. Last Vital Signs Temp Pulse Resp BP Pulse Ox 98.4 F 75 16 104/60 96 07/30/18 14:10 07/30/18 14:10 07/30/18 14:10 07/30/18 14:10 07/30/18 09:00 CBC, BMP 07/30/18 06:30 07/30/18 06:30 PE: Gen: A&O X3 Resp: breathing comfortably Ext: +2 edema, +1 pedal pulses bilaterally, no erythema or discharge. Problem List - Problems (1) DVT of lower extremity, bilateral Assessment/Plan: Plan -Pt will need lifetime anticoagulation as well as thigh high compression stockings -no surgical interventions at this time. -Had long conversation with pt about treatment of swelling and importance of compression stockings Case discussed with Dr. Mary who agrees with the plan Code(s): I82.403 - ACUTE EMBOLISM AND THOMBOS UNSP DEEP VEINS OF LOW EXTRM, BI
[2018-07-30] MEDS: MIRTAZAPINE 15 MG TABLET (FP) PO SCH (22:01)
[2018-07-30] MEDS: ATORVASTATIN CA 10 MG TABLET (FP) PO SCH (22:01)
[2018-07-30] MEDS: MONTELUKAST NA 10 MG TABLET PO SCH (22:01)
[2018-07-30] MEDS: LIDOCAINE PATCH REMOVAL MC SCH (22:02)
--- NOTE | 2018-07-30 23:13 | PN ---
Progress Note, Physician - Current Medication List Current Medications: Active Medications Acetaminophen (Tylenol -) 650 mg PO Q4H PRN PRN Reason: FEVER Last Admin: 07/30/18 18:21 Dose: 650 mg Atorvastatin Calcium (Lipitor -) 10 mg PO HS [facility] Last Admin: 07/30/18 22:01 Dose: 10 mg Budesonide/Formoterol Fumarate (Symbicort 160/4.5mcg -) 2 puff IH BID [facility] Last Admin: 07/30/18 22:01 Dose: 2 puff Calcium Carbonate/Cholecalciferol (Os-Ray 500+D -) 1 tab PO DAILY [facility] Last Admin: 07/30/18 10:54 Dose: 1 tab Cyclobenzaprine HCl (Flexeril -) 10 mg PO TID PRN PRN Reason: BACK PAIN Last Admin: 07/29/18 21:24 Dose: 10 mg Docusate Sodium (Colace -) 100 mg PO TID [facility] Last Admin: 07/30/18 22:01 Dose: 100 mg Enoxaparin Sodium 80 mg/ (Enoxaparin Sodium 50 mg) 130 mg SQ BID@0700,1900 [facility] Last Admin: 07/30/18 18:15 Dose: 130 mg Fenofibric Acid (Trilipix -) 135 mg PO DAILY [facility] Last Admin: 07/30/18 10:55 Dose: 135 mg Ertapenem 1 gm/ Sodium (Chloride) 50 mls @ 100 mls/hr IVPB DAILY [facility] Last Admin: 07/30/18 10:51 Dose: 100 mls/hr Insulin Aspart (Novolog Vial Sliding Scale -) 1 vial SQ ACHS [facility]; Protocol Last Admin: 07/30/18 22:02 Dose: Not Given Insulin Detemir (Levemir Vial) 60 units SQ AM [facility] Last Admin: 07/30/18 06:02 Dose: Not Given Insulin Detemir (Levemir Vial) 45 units SQ HS [facility] Last Admin: 07/30/18 22:02 Dose: Not Given Lidocaine (Lidoderm Patch -) 1 patch TP DAILY [facility] Last Admin: 07/30/18 10:54 Dose: 1 patch Methylnaltrexone [place] (Relistor -) 12 mg SQ DAILY [facility] Last Admin: 07/30/18 12:52 Dose: 12 mg Mirtazapine (Remeron -) 7.5 mg PO HS [facility] Last Admin: 07/30/18 22:01 Dose: 7.5 mg Miscellaneous (Lidoderm Patch Removal) 1 each MC DAILY@2200 [facility] Last Admin: 07/30/18 22:02 Dose: 1 each Montelukast Sodium (Singulair -) 10 mg PO HS [facility] Last Admin: 07/30/18 22:01 Dose: 10 mg Oxycodone HCl (Roxicodone -) 10 mg PO Q12H PRN PRN Reason: PAIN SCALE 4-10 Last Admin: 07/30/18 22:01 Dose: 10 mg Pantoprazole Sodium (Protonix -) 40 mg PO BID [facility] Last Admin: 07/30/18 22:01 Dose: 40 mg Polyethylene Glycol (Miralax (For Daily Use) -) 17 gm PO BID [facility] Last Admin: 07/30/18 22:00 Dose: 17 grams Tiotropium [place] (Spiriva Respimat) 2 puff IH DAILY [facility] Last Admin: 07/30/18 11:00 Dose: 2 puff - Objective Vital Signs: Vital Signs Temperature 97.7 F 07/30/18 18:00 Pulse Rate 77 07/30/18 18:00 Respiratory Rate 18 07/30/18 18:00 Blood Pressure 118/72 07/30/18 18:00 O2 Sat by Pulse Oximetry (%) 96 07/30/18 09:00 Labs: CBC, BMP 07/30/18 06:30 07/30/18 06:30 INR, PTT INR 1.44 (0.83-1.09) H 07/21/18 05:30 Fibrinogen 415.0 mg/dL (238-498) D 07/18/18 05:30 Problem List - Problems (1) Fever Code(s): R50.9 - FEVER, UNSPECIFIED (2) DVT of lower extremity, bilateral Code(s): I82.403 - ACUTE EMBOLISM AND THOMBOS UNSP DEEP VEINS OF LOW EXTRM, BI (3) Hematoma Code(s): T14.8XXA - OTHER INJURY OF UNSPECIFIED BODY REGION, INITIAL ENCOUNTER (4) Back pain Code(s): M54.9 - DORSALGIA, UNSPECIFIED Qualifiers: Back pain location: low back pain Chronicity: unspecified Back pain laterality: right Sciatica presence: unspecified whether sciatica present Qualified Code(s): M54.5 - Low back pain (5) Diabetes Code(s): E11.9 - TYPE 2 DIABETES MELLITUS WITHOUT COMPLICATIONS (6) HLD (hyperlipidemia) Code(s): E78.5 - HYPERLIPIDEMIA, UNSPECIFIED (7) Neuropathy due to type 2 diabetes mellitus Code(s): E11.40 - TYPE 2 DIABETES MELLITUS WITH DIABETIC NEUROPATHY, UNSP (8) Obesity (BMI 30-39.9) Code(s): E66.9 - OBESITY, UNSPECIFIED (9) ARF (acute renal failure) Code(s): N17.9 - ACUTE KIDNEY FAILURE, UNSPECIFIED (10) Asthma Code(s): J45.909 - UNSPECIFIED ASTHMA, UNCOMPLICATED (11) Anemia Code(s): D64.9 - ANEMIA, UNSPECIFIED
[2018-07-31] MEDS: INSULIN (LEVEMIR) 100 UNITS/ML UNITS SQ SCH ×2 (06:12→21:16)
[2018-07-31] MEDS: DOCUSATE SODIUM 100 MG CAPSULE (FP) PO SCH ×3 (06:12→21:14)
[2018-07-31] MEDS: INSULIN SLIDING SCALE (NOVOLOG) 1 VIAL SQ SCH ×4 (06:12→21:17)
[2018-07-31] MEDS ORDERED: ENOXAPARIN NA (PORCINE) 80 MG/0.8 ML DISP.SYRIN SQ ONE ×2 (06:14→18:32)
[2018-07-31] MEDS ORDERED: ENOXAPARIN NA (PORCINE) 60 MG/0.6 ML DISP.SYRIN SQ ONE ×2 (06:14→18:32)
[2018-07-31] MEDS: ENOXAPARIN SQ SCH ×2 (06:15→18:35)
[2018-07-31] MEDS: oxyCODONE HCL 5 MG TABLET PO PRN ×2 (09:51→21:19)
[2018-07-31] MEDS: CALCIUM 500MG/VIT-D 200 UNITS COMBO TABLET (FP) PO SCH (09:51)
[2018-07-31] MEDS: ACETAMINOPHEN 325 MG TABLET (FP) PO PRN ×2 (09:55→21:24)
[2018-07-31] MEDS: PANTOPRAZOLE 40 MG TABLET (FP) PO SCH ×2 (09:55→21:17)
[2018-07-31] MEDS: FENOFIBRIC ACID 135 MG CAP PO SCH (09:57)
[2018-07-31] MEDS: BUDESONIDE/FORMETEROL FUMARATE 160/4.5 mcg INHALER IH SCH ×2 (09:58→21:18)
[2018-07-31] MEDS: ERTAPENEM SODIUM 1 GM in SODIUM CHLORIDE 50 ML IVPB SCH (09:58)
[2018-07-31] MEDS: LIDOCAINE 5% TOPICAL PATCH TP SCH (09:59)
[2018-07-31] MEDS: TIOTROPIUM BROMIDE 2.5 MCG (SPIRIVA) RESPIMAT INHALER IH SCH (09:59)
[2018-07-31] MEDS: POLYETHYLENE GLYCOL 3350 119 GM BTL PO SCH ×2 (10:02→21:14)
--- NOTE | 2018-07-31 11:55 | PN ---
Progress Note (short form) - Note Progress Note: No acute events overnight. Still with LE pain Left>right. No CP or SOB. Apparently has been ambulating. Intake & Output 07/28/18 07/29/18 07/30/18 07/31/18 23:59 23:59 23:59 23:59 Intake Total 432 163 4106 120 Balance 532 202 4915 120 Last Vital Signs Temp Pulse Resp BP Pulse Ox 97.9 F 73 18 125/76 95 07/31/18 08:44 07/31/18 08:44 07/31/18 08:44 07/31/18 08:44 07/30/18 21:00 Active Medications Acetaminophen (Tylenol -) 650 mg PO Q4H PRN PRN Reason: FEVER Last Admin: 07/31/18 09:55 Dose: 650 mg Atorvastatin Calcium (Lipitor -) 10 mg PO HS [facility] Last Admin: 07/30/18 22:01 Dose: 10 mg Budesonide/Formoterol Fumarate (Symbicort 160/4.5mcg -) 2 puff IH BID [facility] Last Admin: 07/31/18 09:58 Dose: 2 puff Calcium Carbonate/Cholecalciferol (Os-Ray 500+D -) 1 tab PO DAILY [facility] Last Admin: 07/31/18 09:51 Dose: 1 tab Cyclobenzaprine HCl (Flexeril -) 10 mg PO TID PRN PRN Reason: BACK PAIN Last Admin: 07/29/18 21:24 Dose: 10 mg Docusate Sodium (Colace -) 100 mg PO TID [facility] Last Admin: 07/31/18 06:12 Dose: Not Given Enoxaparin Sodium 80 mg/ (Enoxaparin Sodium 50 mg) 130 mg SQ BID@0700,1900 [facility] Last Admin: 07/31/18 06:15 Dose: 130 mg Fenofibric Acid (Trilipix -) 135 mg PO DAILY [facility] Last Admin: 07/31/18 09:57 Dose: 135 mg Ertapenem 1 gm/ Sodium (Chloride) 50 mls @ 100 mls/hr IVPB DAILY [facility] Last Admin: 07/31/18 09:58 Dose: 100 mls/hr Insulin Aspart (Novolog Vial Sliding Scale -) 1 vial SQ ACHS [facility]; Protocol Last Admin: 07/31/18 11:34 Dose: Not Given Insulin Detemir (Levemir Vial) 60 units SQ AM [facility] Last Admin: 07/31/18 06:12 Dose: Not Given Insulin Detemir (Levemir Vial) 45 units SQ HS [facility] Last Admin: 07/30/18 22:02 Dose: Not Given Lidocaine (Lidoderm Patch -) 1 patch TP DAILY [facility] Last Admin: 07/31/18 09:59 Dose: 1 patch Methylnaltrexone [place] (Relistor -) 12 mg SQ DAILY [facility] Last Admin: 07/30/18 12:52 Dose: 12 mg Mirtazapine (Remeron -) 7.5 mg PO [facility] Last Admin: 07/30/18 22:01 Dose: 7.5 mg Miscellaneous (Lidoderm Patch Removal) 1 each MC DAILY@2200 [facility] Last Admin: 07/30/18 22:02 Dose: 1 each Montelukast Sodium (Singulair -) 10 mg PO [facility] Last Admin: 07/30/18 22:01 Dose: 10 mg Oxycodone HCl (Roxicodone -) 10 mg PO Q12H PRN PRN Reason: PAIN SCALE 4-10 Last Admin: 07/31/18 09:51 Dose: 10 mg Pantoprazole Sodium (Protonix -) 40 mg PO BID [facility] Last Admin: 07/31/18 09:55 Dose: 40 mg Polyethylene Glycol (Miralax (For Daily Use) -) 17 gm PO BID [facility] Last Admin: 07/31/18 10:02 Dose: Not Given Tiotropium Check (Spiriva Respimat) 2 puff IH DAILY [facility] Last Admin: 07/31/18 09:59 Dose: 2 puff Constitutional: Yes: NAD Eyes: Yes: WNL HENT: Yes: WNL Neck: Yes: WNL Cardiovascular: Yes: Regular Rate and Rhythm, S1, S2 Respiratory: Yes: Diminished Gastrointestinal: Yes: Normal Bowel Sounds, Soft, Abdomen, Obese Extremities: Yes: WNL Edema: Yes Labs: Laboratory Results - last 24 hr 07/30/18 07/30/18 07/31/18 17:01 21:59 06:09 POC Glucometer 106 115 113 07/31/18 11:26 POC Glucometer 106 Problem List - Problems (1) Anemia Code(s): D64.9 - ANEMIA, UNSPECIFIED (2) Asthma Code(s): J45.909 - UNSPECIFIED ASTHMA, UNCOMPLICATED (3) DVT of lower extremity, bilateral Code(s): I82.403 - ACUTE EMBOLISM AND THOMBOS UNSP DEEP VEINS OF LOW EXTRM, BI (4) Hematoma Code(s): T14.8XXA - OTHER INJURY OF UNSPECIFIED BODY REGION, INITIAL ENCOUNTER (5) Chronic pain Code(s): G89.29 - OTHER CHRONIC PAIN (6) GERD (gastroesophageal reflux disease) Code(s): K21.9 - GASTRO-ESOPHAGEAL REFLUX DISEASE WITHOUT ESOPHAGITIS Qualifiers: Esophagitis presence: without esophagitis Qualified Code(s): K21.9 - Gastro -esophageal reflux disease without esophagitis (7) HLD (hyperlipidemia) Code(s): E78.5 - HYPERLIPIDEMIA, UNSPECIFIED (8) HTN (hypertension) Code(s): I10 - ESSENTIAL (PRIMARY) HYPERTENSION (9) DVT (deep venous thrombosis) Code(s): I82.409 - ACUTE EMBOLISM AND THOMBOS UNSP DEEP VN UNSP LOWER EXTREMITY Qualifiers: DVT location: lower extremity Chronicity: unspecified Laterality: right Assessment/Plan Acute Blood Loss Anemia Acute Bilateral Extensive DVTs h/o IVC filter Acute Kidney Injury Asthma Anemia Thrombocytopenia R/O Malignancy - continue anticoagulation with Lovenox BID per Heme - O2 to keep SpO2 >90% - inhaled bronchodilators as needed - Pain control - D/C planning Dr Lr
[2018-07-31] MEDS: Methylnaltrexone Bromide 12 MG/0.6 ML KIT SQ SCH (12:46)
[2018-07-31 12:53] LABS: BASO % 0.9 % (0-2.0); EOS % 2.7 % (0-4.5); HEMATOCRIT 30.4 % (32.4-45.2); HEMOGLOBIN 9.9 GM/dL (10.7-15.3); LYMPH % 17.1 % (8-40); MCH 29.3 pg (25.7-33.7); MCHC 32.6 g/dl (32.0-36.0); MEAN CELL VOLUME 90.1 fl (80-96); MEAN PLT VOLUME 8.9 fl (7.5-11.1); MONO % 8.9 % (3.8-10.2); NEUT % 70.4 % (42.8-82.8); PLATELET COUNT 360 K/MM3 (134-434); RBC 3.38 M/mm3 (3.60-5.2); RDW 15.3 % (11.6-15.6); WHITE BLOOD COUNT 5.3 K/mm3 (4.0-10.0)
[2018-07-31 13:25] LABS: ALBUMIN 2.5 g/dl (3.4-5.0); ALK PHOS 88 U/L (45-117); ANION GAP 6 MMOL/L (8-16); BILIRUBIN,TOTAL 0.4 mg/dL (0.2-1); BLOOD UREA NITROGEN 10 mg/dL (7-18); CALCIUM 8.9 mg/dL (8.5-10.1); CHLORIDE 103 mmol/L (98-107); CO2 28 mmol/L (21-32); CREATININE 0.7 mg/dL (0.55-1.3); GLUCOSE,RANDOM 102 mg/dL (74-106); POTASSIUM 4.3 mmol/L (3.5-5.1); SGOT/AST 31 U/L (15-37); SGPT/ALT 17 U/L (13-61); SODIUM 137 mmol/L (136-145); TOT PROT 6.5 g/dl (6.4-8.2)
--- NOTE | 2018-07-31 18:19 | PN ---
Progress Note, Physician History of Present Illness: patient stable no new issues pain main issue - Current Medication List Current Medications: Active Medications Acetaminophen (Tylenol -) 650 mg PO Q4H PRN PRN Reason: FEVER Last Admin: 07/31/18 09:55 Dose: 650 mg Atorvastatin Calcium (Lipitor -) 10 mg PO HS [facility] Last Admin: 07/30/18 22:01 Dose: 10 mg Budesonide/Formoterol Fumarate (Symbicort 160/4.5mcg -) 2 puff IH BID [facility] Last Admin: 07/31/18 09:58 Dose: 2 puff Calcium Carbonate/Cholecalciferol (Os-Ray 500+D -) 1 tab PO DAILY [facility] Last Admin: 07/31/18 09:51 Dose: 1 tab Cyclobenzaprine HCl (Flexeril -) 10 mg PO TID PRN PRN Reason: BACK PAIN Last Admin: 07/29/18 21:24 Dose: 10 mg Docusate Sodium (Colace -) 100 mg PO TID [facility] Last Admin: 07/31/18 15:18 Dose: 100 mg Enoxaparin Sodium 80 mg/ (Enoxaparin Sodium 50 mg) 130 mg SQ BID@0700,1900 [facility] Last Admin: 07/31/18 06:15 Dose: 130 mg Fenofibric Acid (Trilipix -) 135 mg PO DAILY [facility] Last Admin: 07/31/18 09:57 Dose: 135 mg Insulin Aspart (Novolog Vial Sliding Scale -) 1 vial SQ [facility]; Protocol Last Admin: 07/31/18 16:28 Dose: Not Given Insulin Detemir (Levemir Vial) 60 units SQ AM [facility] Last Admin: 07/31/18 06:12 Dose: Not Given Insulin Detemir (Levemir Vial) 45 units SQ HS [facility] Last Admin: 07/30/18 22:02 Dose: Not Given Lidocaine (Lidoderm Patch -) 1 patch TP DAILY [facility] Last Admin: 07/31/18 09:59 Dose: 1 patch Methylnaltrexone [place] (Relistor -) 12 mg SQ DAILY [facility] Last Admin: 07/31/18 12:46 Dose: 12 mg Mirtazapine (Remeron -) 7.5 mg PO [facility] Last Admin: 07/30/18 22:01 Dose: 7.5 mg Miscellaneous (Lidoderm Patch Removal) 1 each MC DAILY@2200 [facility] Last Admin: 07/30/18 22:02 Dose: 1 each Montelukast Sodium (Singulair -) 10 mg PO HS [facility] Last Admin: 07/30/18 22:01 Dose: 10 mg Oxycodone HCl (Roxicodone -) 10 mg PO Q12H PRN PRN Reason: PAIN SCALE 4-10 Last Admin: 07/31/18 09:51 Dose: 10 mg Pantoprazole Sodium (Protonix -) 40 mg PO BID [facility] Last Admin: 07/31/18 09:55 Dose: 40 mg Polyethylene Glycol (Miralax (For Daily Use) -) 17 gm PO BID [facility] Last Admin: 07/31/18 10:02 Dose: Not Given Tiotropium [place] (Spiriva Respimat) 2 puff IH DAILY [facility] Last Admin: 07/31/18 09:59 Dose: 2 puff - Objective Vital Signs: Vital Signs Temperature 97.6 F 07/31/18 14:25 Pulse Rate 64 07/31/18 14:25 Respiratory Rate 18 07/31/18 14:25 Blood Pressure 147/75 07/31/18 14:25 O2 Sat by Pulse Oximetry (%) 95 07/31/18 09:00 Constitutional: Yes: Calm Neck: Yes: Supple Cardiovascular: Yes: Regular Rate and Rhythm Respiratory: Yes: Regular, CTA Bilaterally Gastrointestinal: Yes: Normal Bowel Sounds, Soft Musculoskeletal: Yes: WNL Extremities: Yes: Other Neurological: Yes: Alert Labs: CBC, BMP 07/31/18 12:19 07/31/18 12:19 INR, PTT INR 1.44 (0.83-1.09) H 07/21/18 05:30 Fibrinogen 415.0 mg/dL (238-498) D 07/18/18 05:30 Assessment/Plan Problem List - Problems (1) DVT of lower extremity, bilateral Code(s): I82.403 - ACUTE EMBOLISM AND THOMBOS UNSP DEEP VEINS OF LOW EXTRM, BI (2) Back pain Code(s): M54.9 - DORSALGIA, UNSPECIFIED Qualifiers: Back pain location: low back pain Chronicity: unspecified Back pain laterality: right Sciatica presence: unspecified whether sciatica present Qualified Code(s): M54.5 - Low back pain (3) Hyperglycemia Code(s): R73.9 - HYPERGLYCEMIA, UNSPECIFIED (4) Injury of right foot Code(s): S99.921A - UNSPECIFIED INJURY OF RIGHT FOOT, INITIAL ENCOUNTER Qualifiers: Encounter type: initial encounter Qualified Code(s): S99.921A - Unspecified injury of right foot, initial encounter (5) URI (upper respiratory infection) Code(s): J06.9 - ACUTE UPPER RESPIRATORY INFECTION, UNSPECIFIED 6 uti patients urine has esbl plan stopped al abx rest continue current mgmt
[2018-07-31] MEDS: CYCLOBENZAPRINE HCL 10 MG TABLET (FP) PO PRN (18:35)
--- NOTE | 2018-07-31 20:36 | PN ---
Progress Note (short form) - Note Progress Note: patient seen and examined Did some PT today. Ambulating with walker AFVSS Cor: RSR, No murmurs, No gallops Lungs: Clear to P&A Abd: Soft, Normal bowel sounds, No organomegaly Ext:3 + edema b/l Lt>rt. labs/meds reviewed a/p 57 year old female, with a significant past medical history of chronic back pain , h/o unprovoked RLE DVT/PE (2014, treated with anticoagulation upuntil 2016 and then discontinued due to frequent falls, also with superficial vein thrombosis in 06/2017 on prophy lovenox up until 3 months ago but was discontinued due to falls. Thrombophilia w/u was negative in the past.HIT negative Imaging studies -- CT and u/s extensive DVT from ivc to iliacs to b/l lower extremities. Pelvic hematoma stable on 07/19--- reviewed with dr. paige On lovenox repeat imaging in 4 weks. monitor cbc anemia--chronic disease? ESBL and proteus UTI --on ertapenem Patient with extensive family h/o autoimmune disease--will request rheumatology consult ? rehab placement
[2018-07-31] MEDS: LIDOCAINE PATCH REMOVAL MC SCH (21:14)
[2018-07-31] MEDS: MONTELUKAST NA 10 MG TABLET PO SCH (21:16)
[2018-07-31] MEDS: ATORVASTATIN CA 10 MG TABLET (FP) PO SCH (21:16)
[2018-07-31] MEDS: MIRTAZAPINE 15 MG TABLET (FP) PO SCH (21:18)
--- NOTE | 2018-07-31 22:35 | PN ---
Progress Note, Physician History of Present Illness: No new complaints - Current Medication List Current Medications: Active Medications Acetaminophen (Tylenol -) 650 mg PO Q4H PRN PRN Reason: FEVER Last Admin: 07/31/18 21:24 Dose: 650 mg Atorvastatin Calcium (Lipitor -) 10 mg PO HS [facility] Last Admin: 07/31/18 21:16 Dose: 10 mg Budesonide/Formoterol Fumarate (Symbicort 160/4.5mcg -) 2 puff IH BID [facility] Last Admin: 07/31/18 21:18 Dose: 2 puff Calcium Carbonate/Cholecalciferol (Os-Ray 500+D -) 1 tab PO DAILY [facility] Last Admin: 07/31/18 09:51 Dose: 1 tab Cyclobenzaprine HCl (Flexeril -) 10 mg PO TID PRN PRN Reason: BACK PAIN Last Admin: 07/31/18 18:35 Dose: 10 mg Docusate Sodium (Colace -) 100 mg PO TID [facility] Last Admin: 07/31/18 21:14 Dose: Not Given Enoxaparin Sodium 80 mg/ (Enoxaparin Sodium 50 mg) 130 mg SQ BID@0700,1900 [facility] Last Admin: 07/31/18 18:35 Dose: 130 mg Fenofibric Acid (Trilipix -) 135 mg PO DAILY [facility] Last Admin: 07/31/18 09:57 Dose: 135 mg Insulin Aspart (Novolog Vial Sliding Scale -) 1 vial SQ [facility]; Protocol Last Admin: 07/31/18 21:17 Dose: 6 unit Insulin Detemir (Levemir Vial) 60 units SQ AM [facility] Last Admin: 07/31/18 06:12 Dose: Not Given Insulin Detemir (Levemir Vial) 45 units SQ HS [facility] Last Admin: 07/31/18 21:16 Dose: Not Given Lidocaine (Lidoderm Patch -) 1 patch TP DAILY [facility] Last Admin: 07/31/18 09:59 Dose: 1 patch Methylnaltrexone [place] (Relistor -) 12 mg SQ DAILY [facility] Last Admin: 07/31/18 12:46 Dose: 12 mg Mirtazapine (Remeron -) 7.5 mg PO [facility] Last Admin: 07/31/18 21:18 Dose: 7.5 mg Miscellaneous (Lidoderm Patch Removal) 1 each MC DAILY@2200 [facility] Last Admin: 07/31/18 21:14 Dose: 1 each Montelukast Sodium (Singulair -) 10 mg PO HS [facility] Last Admin: 07/31/18 21:16 Dose: 10 mg Oxycodone HCl (Roxicodone -) 10 mg PO Q12H PRN PRN Reason: PAIN SCALE 4-10 Last Admin: 07/31/18 21:19 Dose: 10 mg Pantoprazole Sodium (Protonix -) 40 mg PO BID [facility] Last Admin: 07/31/18 21:17 Dose: 40 mg Polyethylene Glycol (Miralax (For Daily Use) -) 17 gm PO BID [facility] Last Admin: 07/31/18 21:14 Dose: Not Given Tiotropium [place] (Spiriva Respimat) 2 puff IH DAILY [facility] Last Admin: 07/31/18 09:59 Dose: 2 puff - Objective Vital Signs: Vital Signs Temperature 98.2 F 07/31/18 18:00 Pulse Rate 81 07/31/18 18:00 Respiratory Rate 18 07/31/18 18:00 Blood Pressure 116/71 07/31/18 18:00 O2 Sat by Pulse Oximetry (%) 95 07/31/18 09:00 Constitutional: Yes: Well Nourished, Obese Neck: Yes: WNL, Supple Cardiovascular: Yes: WNL, Regular Rate and Rhythm Respiratory: Yes: WNL, Regular, CTA Bilaterally Gastrointestinal: Yes: WNL, Normal Bowel Sounds, Soft, Abdomen, Obese Edema: LLE: 1+, RLE: 1+ Labs: CBC, BMP 07/31/18 12:19 07/31/18 12:19 INR, PTT INR 1.44 (0.83-1.09) H 07/21/18 05:30 Fibrinogen 415.0 mg/dL (238-498) D 07/18/18 05:30 Problem List - Problems (1) Fever Assessment/Plan: Antibiotics have been dc'ed DC planning for am to STR from 07/21/18 remains negative WBC remains rufina Code(s): R50.9 - FEVER, UNSPECIFIED (2) DVT of lower extremity, bilateral Assessment/Plan: Cont lovenox DVT extending from IVC filter to inf vena cava/common iliac/external iliac B/L Monitor for bleeding H/O IVC filter Encourage OOB w/ ambulation Code(s): I82.403 - ACUTE EMBOLISM AND THOMBOS UNSP DEEP VEINS OF LOW EXTRM, BI (3) Hematoma Assessment/Plan: CT scan abd showed: No change in pelvic hematomas and multiple thrombosis's Monitor for bleeding Code(s): T14.8XXA - OTHER INJURY OF UNSPECIFIED BODY REGION, INITIAL ENCOUNTER (4) Back pain Assessment/Plan: Chronic back pain Pt now w/ increasedd constipation Check abdominal FUA Will need PT and enocurage OOB to chair Cont lidocaine/oxycodone/flexeril Cont stool softners Code(s): M54.9 - DORSALGIA, UNSPECIFIED Qualifiers: Back pain location: low back pain Chronicity: unspecified Back pain laterality: right Sciatica presence: unspecified whether sciatica present Qualified Code(s): M54.5 - Low back pain (5) Diabetes Assessment/Plan: Cont sliding scale w/ coverage/levemir Code(s): E11.9 - TYPE 2 DIABETES MELLITUS WITHOUT COMPLICATIONS (6) HLD (hyperlipidemia) Assessment/Plan: Cont lipitor/fenofibrate Code(s): E78.5 - HYPERLIPIDEMIA, UNSPECIFIED (7) Neuropathy due to type 2 diabetes mellitus Code(s): E11.40 - TYPE 2 DIABETES MELLITUS WITH DIABETIC NEUROPATHY, UNSP (8) Obesity (BMI 30-39.9) Code(s): E66.9 - OBESITY, UNSPECIFIED (9) ARF (acute renal failure) Assessment/Plan: Creatinine/Bun improved and now normal Code(s): N17.9 - ACUTE KIDNEY FAILURE, UNSPECIFIED (10) Asthma Code(s): J45.909 - UNSPECIFIED ASTHMA, UNCOMPLICATED (11) Anemia Code(s): D64.9 - ANEMIA, UNSPECIFIED
[2018-08-01] MEDS ORDERED: ENOXAPARIN NA (PORCINE) 80 MG/0.8 ML DISP.SYRIN SQ ONE (05:09)
[2018-08-01] MEDS ORDERED: ENOXAPARIN NA (PORCINE) 60 MG/0.6 ML DISP.SYRIN SQ ONE (05:10)
[2018-08-01] MEDS: DOCUSATE SODIUM 100 MG CAPSULE (FP) PO SCH ×2 (05:11→13:30)
[2018-08-01] MEDS: INSULIN (LEVEMIR) 100 UNITS/ML UNITS SQ SCH (06:05)
[2018-08-01] MEDS: INSULIN SLIDING SCALE (NOVOLOG) 1 VIAL SQ SCH ×2 (06:05→11:35)
[2018-08-01] MEDS: ENOXAPARIN SQ SCH (06:23)
--- NOTE | 2018-08-01 09:05 | PN ---
Progress Note (short form) - Note Progress Note: Patient seen and examined Complains of leg pains Denies chest pains or SOB Last Vital Signs Temp Pulse Resp BP Pulse Ox 97.6 F 58 L 18 138/73 95 08/01/18 08:53 08/01/18 08:53 08/01/18 08:53 08/01/18 08:53 07/31/18 21:00 HEENT: [place], EOM Intact Oropharynx: No thrush, No mucositis Cor: RSR, No murmurs, No gallops Lungs: Rales at bases Abd: Soft, Normal bowel sounds, No organomegaly Ext:LE edema Skin: No rashes, Integument intact CBC, BMP 07/31/18 12:19 07/31/18 12:19 Current Medications Generic Name Dose Route Start Last Admin Trade Name Freq PRN Reason Stop Dose Admin Acetaminophen 650 mg 07/22/18 15:49 07/31/18 21:24 Tylenol - PO 650 mg Q4H PRN Administration FEVER Atorvastatin Calcium 10 mg 07/21/18 22:00 07/31/18 21:16 Lipitor - PO 10 mg HS [facility] Administration Budesonide/Formoterol Fumarate 2 puff 07/21/18 22:00 07/31/18 21:18 Symbicort 160/4.5mcg - IH 2 puff BID [facility] Administration Calcium Carbonate/Cholecalciferol 1 tab 07/22/18 10:00 07/31/18 09:51 Os-Ray 500+D - PO 1 tab DAILY [facility] Administration Cyclobenzaprine HCl 10 mg 07/21/18 21:12 07/31/18 18:35 Flexeril - PO 10 mg TID PRN Administration BACK PAIN Docusate Sodium 100 mg 07/21/18 22:00 08/01/18 05:11 Colace - PO Not Given TID [facility] Enoxaparin Sodium 80 mg/ 130 mg 07/21/18 19:00 08/01/18 06:23 Enoxaparin Sodium 50 mg SQ 130 mg BID@0700,1900 [facility] Administration Fenofibric Acid 135 mg 07/22/18 10:00 07/31/18 09:57 Trilipix - PO 135 mg DAILY [facility] Administration Insulin Aspart 1 vial 07/21/18 22:00 08/01/18 06:05 Novolog Vial Sliding Scale - SQ Not Given ACHS [facility] Protocol Insulin Detemir 60 units 07/22/18 07:00 08/01/18 06:05 Levemir Vial SQ Not Given AM [facility] Insulin Detemir 45 units 07/21/18 22:00 07/31/18 21:16 Levemir Vial SQ Not Given HS [facility] Lidocaine 1 patch 07/22/18 10:00 07/31/18 09:59 Lidoderm Patch - TP 1 patch DAILY [facility] Administration Methylnaltrexone [place] 12 mg 07/26/18 16:00 07/31/18 12:46 Relistor - SQ 12 mg DAILY [facility] Administration Mirtazapine 7.5 mg 07/21/18 22:00 07/31/18 21:18 Remeron - PO 7.5 mg HS [facility] Administration Miscellaneous 1 each 07/21/18 22:00 07/31/18 21:14 Lidoderm Patch Removal MC 1 each DAILY@2200 [facility] Administration Montelukast Sodium 10 mg 07/21/18 22:00 07/31/18 21:16 Singulair - PO 10 mg HS [facility] Administration Oxycodone HCl 10 mg 07/29/18 18:06 07/31/18 21:19 Roxicodone - PO 10 mg Q12H PRN Administration PAIN SCALE 4-10 Pantoprazole Sodium 40 mg 07/25/18 10:00 07/31/18 21:17 Protonix - PO 40 mg BID [facility] Administration Polyethylene Glycol 17 gm 07/25/18 22:00 07/31/18 21:14 Miralax (For Daily Use) - PO Not Given BID [facility] Tiotropium [place] 2 puff 07/22/18 10:00 07/31/18 09:59 Spiriva Respimat IH 2 puff DAILY [facility] Administration Impression: Bilateral LE DVTIVC filter Pelvic hematoma DM HPL Opiod induced constipation \COPD Anemia-normal B-12, folate, TSH, Fe++ studies compatible with blood loss anemia and chronic disease Plan: Continuation of anticoagulation PT Rehab placement
--- NOTE | 2018-08-01 09:20 | PN ---
Progress Note (short form) - Note Progress Note: Patient seen and examined Complains of leg pains Denies chest pains or SOB Last Vital Signs Temp Pulse Resp BP Pulse Ox 97.6 F 58 L 18 138/73 95 08/01/18 08:53 08/01/18 08:53 08/01/18 08:53 08/01/18 08:53 07/31/18 21:00 HEENT: [place], EOM Intact Oropharynx: No thrush, No mucositis Cor: RSR, No murmurs, No gallops Lungs: Rales at bases Abd: Soft, Normal bowel sounds, No organomegaly Ext:LE edema Skin: No rashes, Integument intact CBC, BMP 07/31/18 12:19 07/31/18 12:19 Current Medications Generic Name Dose Route Start Last Admin Trade Name Freq PRN Reason Stop Dose Admin Acetaminophen 650 mg 07/22/18 15:49 07/31/18 21:24 Tylenol - PO 650 mg Q4H PRN Administration FEVER Atorvastatin Calcium 10 mg 07/21/18 22:00 07/31/18 21:16 Lipitor - PO 10 mg HS [facility] Administration Budesonide/Formoterol Fumarate 2 puff 07/21/18 22:00 07/31/18 21:18 Symbicort 160/4.5mcg - IH 2 puff BID [facility] Administration Calcium Carbonate/Cholecalciferol 1 tab 07/22/18 10:00 07/31/18 09:51 Os-Ray 500+D - PO 1 tab DAILY [facility] Administration Cyclobenzaprine HCl 10 mg 07/21/18 21:12 07/31/18 18:35 Flexeril - PO 10 mg TID PRN Administration BACK PAIN Docusate Sodium 100 mg 07/21/18 22:00 08/01/18 05:11 Colace - PO Not Given TID [facility] Enoxaparin Sodium 80 mg/ 130 mg 07/21/18 19:00 08/01/18 06:23 Enoxaparin Sodium 50 mg SQ 130 mg BID@0700,1900 [facility] Administration Fenofibric Acid 135 mg 07/22/18 10:00 07/31/18 09:57 Trilipix - PO 135 mg DAILY [facility] Administration Insulin Aspart 1 vial 07/21/18 22:00 08/01/18 06:05 Novolog Vial Sliding Scale - SQ Not Given ACHS [facility] Protocol Insulin Detemir 60 units 07/22/18 07:00 08/01/18 06:05 Levemir Vial SQ Not Given AM [facility] Insulin Detemir 45 units 07/21/18 22:00 07/31/18 21:16 Levemir Vial SQ Not Given HS [facility] Lidocaine 1 patch 07/22/18 10:00 07/31/18 09:59 Lidoderm Patch - TP 1 patch DAILY [facility] Administration Methylnaltrexone [place] 12 mg 07/26/18 16:00 07/31/18 12:46 Relistor - SQ 12 mg DAILY [facility] Administration Mirtazapine 7.5 mg 07/21/18 22:00 07/31/18 21:18 Remeron - PO 7.5 mg HS [facility] Administration Miscellaneous 1 each 07/21/18 22:00 07/31/18 21:14 Lidoderm Patch Removal MC 1 each DAILY@2200 [facility] Administration Montelukast Sodium 10 mg 07/21/18 22:00 07/31/18 21:16 Singulair - PO 10 mg HS [facility] Administration Oxycodone HCl 10 mg 07/29/18 18:06 07/31/18 21:19 Roxicodone - PO 10 mg Q12H PRN Administration PAIN SCALE 4-10 Pantoprazole Sodium 40 mg 07/25/18 10:00 07/31/18 21:17 Protonix - PO 40 mg BID [facility] Administration Polyethylene Glycol 17 gm 07/25/18 22:00 07/31/18 21:14 Miralax (For Daily Use) - PO Not Given BID [facility] Tiotropium [place] 2 puff 07/22/18 10:00 07/31/18 09:59 Spiriva Respimat IH 2 puff DAILY [facility] Administration Impression: Bilateral DVT IVC filter DM Anemia- normal B-12, folate, TSH, Fe++ studies compatible with blood loss anemia and chronic disease COPD HPL Opiod induced constipation Plan Continue with anticoagulation PT Rehab planning
[2018-08-01] MEDS ORDERED: PT OWN MED DRAWER 7, Y5N ONE ×2 (09:38→10:45)
[2018-08-01] MEDS: CALCIUM 500MG/VIT-D 200 UNITS COMBO TABLET (FP) PO SCH (09:44)
[2018-08-01] MEDS: PANTOPRAZOLE 40 MG TABLET (FP) PO SCH (09:44)
[2018-08-01] MEDS: ACETAMINOPHEN 325 MG TABLET (FP) PO PRN (09:45)
[2018-08-01] MEDS: oxyCODONE HCL 5 MG TABLET PO PRN (09:47)
[2018-08-01] MEDS: TIOTROPIUM BROMIDE 2.5 MCG (SPIRIVA) RESPIMAT INHALER IH SCH (09:51)
[2018-08-01] MEDS: BUDESONIDE/FORMETEROL FUMARATE 160/4.5 mcg INHALER IH SCH (09:51)
[2018-08-01] MEDS: LIDOCAINE 5% TOPICAL PATCH TP SCH (09:52)
[2018-08-01] MEDS: POLYETHYLENE GLYCOL 3350 119 GM BTL PO SCH (09:52)
[2018-08-01] MEDS: FENOFIBRIC ACID 135 MG CAP PO SCH (09:53)
[2018-08-01] MEDS: Methylnaltrexone Bromide 12 MG/0.6 ML KIT SQ SCH (11:26)
--- NOTE | 2018-08-01 12:14 | PN ---
Progress Note, Physician History of Present Illness: PULMONARY ALERT,FEELING BETTER,LESS LOWER EXT PAIN,-SOB - Current Medication List Current Medications: Active Medications Acetaminophen (Tylenol -) 650 mg PO Q4H PRN PRN Reason: FEVER Last Admin: 08/01/18 09:45 Dose: 650 mg Atorvastatin Calcium (Lipitor -) 10 mg PO HS [facility] Last Admin: 07/31/18 21:16 Dose: 10 mg Budesonide/Formoterol Fumarate (Symbicort 160/4.5mcg -) 2 puff IH BID [facility] Last Admin: 08/01/18 09:51 Dose: 2 puff Calcium Carbonate/Cholecalciferol (Os-Ray 500+D -) 1 tab PO DAILY [facility] Last Admin: 08/01/18 09:44 Dose: 1 tab Cyclobenzaprine HCl (Flexeril -) 10 mg PO TID PRN PRN Reason: BACK PAIN Last Admin: 07/31/18 18:35 Dose: 10 mg Docusate Sodium (Colace -) 100 mg PO TID [facility] Last Admin: 08/01/18 05:11 Dose: Not Given Enoxaparin Sodium 80 mg/ (Enoxaparin Sodium 50 mg) 130 mg SQ BID@0700,1900 [facility] Last Admin: 08/01/18 06:23 Dose: 130 mg Fenofibric Acid (Trilipix -) 135 mg PO DAILY [facility] Last Admin: 08/01/18 09:53 Dose: 135 mg Insulin Aspart (Novolog Vial Sliding Scale -) 1 vial SQ [facility]; Protocol Last Admin: 08/01/18 11:35 Dose: Not Given Insulin Detemir (Levemir Vial) 60 units SQ AM [facility] Last Admin: 08/01/18 06:05 Dose: Not Given Insulin Detemir (Levemir Vial) 45 units SQ HS [facility] Last Admin: 07/31/18 21:16 Dose: Not Given Lidocaine (Lidoderm Patch -) 1 patch TP DAILY [facility] Last Admin: 08/01/18 09:52 Dose: 1 patch Methylnaltrexone [place] (Relistor -) 12 mg SQ DAILY [facility] Last Admin: 08/01/18 11:26 Dose: 12 mg Mirtazapine (Remeron -) 7.5 mg PO HS [facility] Last Admin: 07/31/18 21:18 Dose: 7.5 mg Miscellaneous (Lidoderm Patch Removal) 1 each MC DAILY@2200 [facility] Last Admin: 07/31/18 21:14 Dose: 1 each Montelukast Sodium (Singulair -) 10 mg PO HS [facility] Last Admin: 07/31/18 21:16 Dose: 10 mg Oxycodone HCl (Roxicodone -) 10 mg PO Q12H PRN PRN Reason: PAIN SCALE 4-10 Last Admin: 08/01/18 09:47 Dose: 10 mg Pantoprazole Sodium (Protonix -) 40 mg PO BID [facility] Last Admin: 08/01/18 09:44 Dose: 40 mg Polyethylene Glycol (Miralax (For Daily Use) -) 17 gm PO BID [facility] Last Admin: 08/01/18 09:52 Dose: Not Given Tiotropium [place] (Spiriva Respimat) 2 puff IH DAILY [facility] Last Admin: 08/01/18 09:51 Dose: 2 puff - Objective Vital Signs: Vital Signs Temperature 97.6 F 08/01/18 08:53 Pulse Rate 58 L 08/01/18 08:53 Respiratory Rate 18 08/01/18 08:53 Blood Pressure 138/73 08/01/18 08:53 O2 Sat by Pulse Oximetry (%) 95 07/31/18 21:00 Constitutional: Yes: Well Nourished, Calm, Obese Eyes: Yes: WNL HENT: Yes: WNL Neck: Yes: WNL Cardiovascular: Yes: Regular Rate and Rhythm, S1, S2 Respiratory: Yes: Diminished Gastrointestinal: Yes: Normal Bowel Sounds, Soft Extremities: Yes: WNL Edema: Yes Labs: Problem List - Problems (1) Anemia Code(s): D64.9 - ANEMIA, UNSPECIFIED (2) Asthma Code(s): J45.909 - UNSPECIFIED ASTHMA, UNCOMPLICATED (3) DVT of lower extremity, bilateral Code(s): I82.403 - ACUTE EMBOLISM AND THOMBOS UNSP DEEP VEINS OF LOW EXTRM, BI (4) Hematoma Code(s): T14.8XXA - OTHER INJURY OF UNSPECIFIED BODY REGION, INITIAL ENCOUNTER (5) Chronic pain Code(s): G89.29 - OTHER CHRONIC PAIN (6) GERD (gastroesophageal reflux disease) Code(s): K21.9 - GASTRO-ESOPHAGEAL REFLUX DISEASE WITHOUT ESOPHAGITIS Qualifiers: Esophagitis presence: without esophagitis Qualified Code(s): K21.9 - Gastro -esophageal reflux disease without esophagitis (7) HLD (hyperlipidemia) Code(s): E78.5 - HYPERLIPIDEMIA, UNSPECIFIED (8) HTN (hypertension) Code(s): I10 - ESSENTIAL (PRIMARY) HYPERTENSION (9) DVT (deep venous thrombosis) Code(s): I82.409 - ACUTE EMBOLISM AND THOMBOS UNSP DEEP VN UNSP LOWER EXTREMITY Qualifiers: DVT location: lower extremity Chronicity: unspecified Laterality: right Assessment/Plan ASSESSMENT AND PLAN: Pelvic Hematoma Acute Blood Loss Anemia Acute Bilateral Extensive DVTs h/o IVC filter Acute Kidney Injury Asthma Anemia Thrombocytopenia corrected - anticoagulation - O2 to keep SpO2 >90% - inhaled bronchodilators as needed DR HOPSON
--- NOTE | 2018-08-01 13:12 | DS ---
Physical Examination Vital Signs: Vital Signs Temperature 97.6 F 08/01/18 08:53 Pulse Rate 58 L 08/01/18 08:53 Respiratory Rate 18 08/01/18 08:53 Blood Pressure 138/73 08/01/18 08:53 O2 Sat by Pulse Oximetry (%) 95 07/31/18 21:00 Constitutional: Yes: Well Nourished Cardiovascular: Yes: WNL, Regular Rate and Rhythm Respiratory: Yes: WNL, Regular Gastrointestinal: Yes: WNL, Normal Bowel Sounds, Soft Edema: LLE: 1+, RLE: 1+ Labs: CBC, BMP 07/31/18 12:19 07/31/18 12:19 Discharge Summary Reason For Visit: DVT Current Active Problems ARF (acute renal failure) (Acute) Anemia (Acute) Asthma (Acute) Constipation (Acute) DVT of axillary vein, acute bilateral (Acute) DVT of lower extremity, bilateral (Acute) Fever (Acute) Hematoma (Acute) UTI (urinary tract infection) (Acute) Hospital Course: Pt is a 57 y/o female w/ multiple medical problems including DVT w/ h/o IVC filter placement. Pt was now admitted bc of new DVT extending to iliac veins w / pelvic hematome. Pt was started on lovenox wc will need to be lifelong treatment. Pt was also treated for fevers w/ normal cultures and was followed by ID and is now off antibxs. Condition: Good - Instructions Diet, Activity, Other Instructions: 2 gram sodium and diabetic diet Disposition: [facility] - Home Medications Comprehensive Discharge Medication List: Ambulatory Orders Albuterol Sulfate Inhaler - [Ventolin HFA Inhaler -] 1 - 2 inh IH Q4H PRN #0 inh 04/02/14 Lisinopril [Prinivil] 20 mg PO DAILY 08/24/16 Mirtazapine [Remeron -] 7.5 mg PO HS 08/24/16 Calcium Carbonate/Vitamin D3 [Calcium 600-Vit D3 400 Tablet] 1 each PO DAILY Fenofibrate Nanocrystallized [Fenofibrate] 145 mg PO DAILY 06/26/17 Omeprazole 40 mg PO DAILY 06/26/17 Atorvastatin Ca [Lipitor] 10 mg PO HS #30 tablet 07/04/17 Budesonide/Formeterol Fumarate [SYMBICORT 160/4.5mcg -] 2 puff IH BID #1 inhaler 07/04/17 Montelukast Na [Singulair -] 10 mg PO HS #30 tablet 07/04/17 Tiotropium [place] [Spiriva] 1 puff IH DAILY #1 inh 07/04/17 Docusate Sodium [Colace] 100 mg PO TID #90 capsule 09/04/17 Ergocalciferol [Vitamin D2] 50,000 unit PO Q7D@1000 #4 capsule 03/25/18 Cyclobenzaprine HCl [Flexeril -] 10 mg PO TID PRN #90 tablet 06/23/18 Lidocaine 5% Patch [Lidoderm -] 1 patch TP DAILY #7 patch 07/15/18 Acetaminophen [Tylenol .Regular Strength -] 650 mg PO Q4H PRN tablet 08/01/18 Enoxaparin [Lovenox -] 130 mg SQ BID@0700,1900 disp.syrin 08/01/18 Enoxaparin [Lovenox -] 130 mg SQ BID@0700,1900 disp.syrin 08/01/18 Insulin (Levemir) [Levemir Vial] 45 units SQ HS units 08/01/18 Insulin (Levemir) [Levemir Vial] 60 units SQ AM units 08/01/18 Insulin Sliding Scale [Novolog Vial Sliding Scale -] 1 vial SQ ACHS units 08/01 Lidocaine 5% Patch [Lidoderm -] 1 patch TP DAILY patch 08/01/18 Lidocaine Patch Removal [Lidoderm Patch Removal] 1 each MC DAILY@2200 each 09/14 Methylnaltrexone [place] [Relistor -] 12 mg SQ DAILY kit 08/01/18 Pantoprazole Sodium [Protonix -] 40 mg PO BID tablet.ec 08/01/18 Polyethylene Glycol 3350 [Miralax 119 gm Btl -] 17 gm PO BID bottle 08/01/18 oxyCODONE HCL [Roxicodone -] 10 mg PO Q12H PRN #90 tablet MDD 2 08/01/18
[2018-08-01] MEDS: CYCLOBENZAPRINE HCL 10 MG TABLET (FP) PO PRN (14:58)
[2018-08-01 14:59] VITALS: BP 106/46; PULSE 69; TEMP 97.4
--- NOTE | 2018-08-01 15:00 | PN ---
Progress Note, Physician History of Present Illness: pain main issues says hurts a lot - Current Medication List Current Medications: Active Medications Acetaminophen (Tylenol -) 650 mg PO Q4H PRN PRN Reason: FEVER Last Admin: 08/01/18 09:45 Dose: 650 mg Atorvastatin Calcium (Lipitor -) 10 mg PO HS [facility] Last Admin: 07/31/18 21:16 Dose: 10 mg Budesonide/Formoterol Fumarate (Symbicort 160/4.5mcg -) 2 puff IH BID [facility] Last Admin: 08/01/18 09:51 Dose: 2 puff Calcium Carbonate/Cholecalciferol (Os-Ray 500+D -) 1 tab PO DAILY [facility] Last Admin: 08/01/18 09:44 Dose: 1 tab Cyclobenzaprine HCl (Flexeril -) 10 mg PO TID PRN PRN Reason: BACK PAIN Last Admin: 08/01/18 14:58 Dose: 10 mg Docusate Sodium (Colace -) 100 mg PO TID [facility] Last Admin: 08/01/18 13:30 Dose: 100 mg Enoxaparin Sodium 80 mg/ (Enoxaparin Sodium 50 mg) 130 mg SQ BID@0700,1900 [facility] Last Admin: 08/01/18 06:23 Dose: 130 mg Fenofibric Acid (Trilipix -) 135 mg PO DAILY [facility] Last Admin: 08/01/18 09:53 Dose: 135 mg Insulin Aspart (Novolog Vial Sliding Scale -) 1 vial SQ [facility]; Protocol Last Admin: 08/01/18 11:35 Dose: Not Given Insulin Detemir (Levemir Vial) 60 units SQ AM [facility] Last Admin: 08/01/18 06:05 Dose: Not Given Insulin Detemir (Levemir Vial) 45 units SQ HS [facility] Last Admin: 07/31/18 21:16 Dose: Not Given Lidocaine (Lidoderm Patch -) 1 patch TP DAILY [facility] Last Admin: 08/01/18 09:52 Dose: 1 patch Methylnaltrexone [place] (Relistor -) 12 mg SQ DAILY [facility] Last Admin: 08/01/18 11:26 Dose: 12 mg Mirtazapine (Remeron -) 7.5 mg PO [facility] Last Admin: 07/31/18 21:18 Dose: 7.5 mg Miscellaneous (Lidoderm Patch Removal) 1 each MC DAILY@2200 [facility] Last Admin: 07/31/18 21:14 Dose: 1 each Montelukast Sodium (Singulair -) 10 mg PO HS [facility] Last Admin: 07/31/18 21:16 Dose: 10 mg Oxycodone HCl (Roxicodone -) 10 mg PO Q12H PRN PRN Reason: PAIN SCALE 4-10 Last Admin: 08/01/18 09:47 Dose: 10 mg Pantoprazole Sodium (Protonix -) 40 mg PO BID [facility] Last Admin: 08/01/18 09:44 Dose: 40 mg Polyethylene Glycol (Miralax (For Daily Use) -) 17 gm PO BID [facility] Last Admin: 08/01/18 09:52 Dose: Not Given Tiotropium [place] (Spiriva Respimat) 2 puff IH DAILY [facility] Last Admin: 08/01/18 09:51 Dose: 2 puff - Objective Vital Signs: Vital Signs Temperature 97.4 F L 08/01/18 14:00 Pulse Rate 69 08/01/18 14:00 Respiratory Rate 16 08/01/18 14:00 Blood Pressure 106/46 L 08/01/18 14:00 O2 Sat by Pulse Oximetry (%) 95 07/31/18 21:00 Constitutional: Yes: Calm, Mild Distress Cardiovascular: Yes: Regular Rate and Rhythm Respiratory: Yes: Regular, CTA Bilaterally Gastrointestinal: Yes: Normal Bowel Sounds, Soft Musculoskeletal: Yes: Other Extremities: Yes: Other Neurological: Yes: Alert, Oriented Psychiatric: Yes: Alert, Oriented Labs: CBC, BMP 07/31/18 12:19 07/31/18 12:19 INR, PTT INR 1.44 (0.83-1.09) H 07/21/18 05:30 Fibrinogen 415.0 mg/dL (238-498) D 07/18/18 05:30 Assessment/Plan Problem List - Problems (1) DVT of lower extremity, bilateral Code(s): I82.403 - ACUTE EMBOLISM AND THOMBOS UNSP DEEP VEINS OF LOW EXTRM, BI (2) Back pain Code(s): M54.9 - DORSALGIA, UNSPECIFIED Qualifiers: Back pain location: low back pain Chronicity: unspecified Back pain laterality: right Sciatica presence: unspecified whether sciatica present Qualified Code(s): M54.5 - Low back pain (3) Hyperglycemia Code(s): R73.9 - HYPERGLYCEMIA, UNSPECIFIED (4) Injury of right foot Code(s): S99.921A - UNSPECIFIED INJURY OF RIGHT FOOT, INITIAL ENCOUNTER Qualifiers: Encounter type: initial encounter Qualified Code(s): S99.921A - Unspecified injury of right foot, initial encounter (5) URI (upper respiratory infection) Code(s): J06.9 - ACUTE UPPER RESPIRATORY INFECTION, UNSPECIFIED 6 uti plan stable pain mgmt no other issues physio rest as per the team
[2018-08-04 13:17] LABS: DRVVT - 45.6 sec (0.0-47.0); HEXAGONAL PHASE PHOSPHOLIPID 15 sec (0-11)
== END 2018-08-01 17:32 | DRG 197 ==
LOC: JER 08:49 → JERBED 13:27 → JICU 22:25 → J4S 07-21 21:02
PROVIDERS: ADMIT Internal Medicine; ATTEND Internal Medicine
DX: I82.4Z3 Acute embolism and thrombosis of unspecified deep veins of distal lower extremity, bilateral (principal); E11.40 Type 2 diabetes mellitus with diabetic neuropathy, unspecified; I10 Essential (primary) hypertension; E78.00 Pure hypercholesterolemia, unspecified; K21.9 Gastro-esophageal reflux disease without esophagitis; J45.909 Unspecified asthma, uncomplicated; E55.9 Vitamin D deficiency, unspecified; N85.8 Other specified noninflammatory disorders of uterus; E66.9 Obesity, unspecified; Z68.42 Body mass index [BMI] 45.0-49.9, adult; M54.9 Dorsalgia, unspecified; N17.9 Acute kidney failure, unspecified; D64.9 Anemia, unspecified; D69.6 Thrombocytopenia, unspecified; E87.1 Hypo-osmolality and hyponatremia; D62 Acute posthemorrhagic anemia; N94.89 Other specified conditions associated with female genital organs and menstrual cycle; M54.5 Low back pain; G89.29 Other chronic pain; K59.03 Drug induced constipation; T40.2X5A Adverse effect of other opioids, initial encounter; F41.8 Other specified anxiety disorders; E11.65 Type 2 diabetes mellitus with hyperglycemia; D72.828 Other elevated white blood cell count; R50.9 Fever, unspecified; N13.6 Pyonephrosis; J44.9 Chronic obstructive pulmonary disease, unspecified
CPT/HCPCS: 36415; 36430; 70450-TC; 71250-TC; 72131-TC; 73700-TC-RT; 74019-TC-FY; 74176-TC; 76700-TC; 76830-TC; 80048; 80053; 81003; 82009; 82272; 82436; 82542; 82607; 82728; 82746; 82962; 83036; 83540; 83550; 83615; 83735; 83880; 84100; 84133; 84300; 84443; 85025; 85027; 85044; 85384; 85610; 85613; 85651; 85730; 85732; 86022; 86038; 86140; 86850; 86900; 86901; 86922; 87040; 87086; 87186; 93005; 93010; 93306-TC; 93970-TC; 96372; 97116-GP; 97162-GP; 99281-25; 99284-25; J0131; J1644; J7030; P9038; P9058

== ENCOUNTER 2018-10-03 19:35 | Emergency (ER) | payer OTHER | END 2018-10-03 23:01 | disposition home or self-care (01) | LOC: JERFT 19:35 → JER 23:01 ==

== ENCOUNTER 2019-03-17 23:06 | Emergency (ER) | payer OTHER ==
[2019-03-17 23:34] VITALS: BP 174/52; PULSE 57; TEMP 97.6; BMI 38.7
--- NOTE | 2019-03-18 00:11 | PDOC ---
*Physical Exam - Vital Signs Last Vital Signs Temp Pulse Resp BP Pulse Ox 97.6 F 57 L 18 174/52 H 99 03/17/19 23:10 03/17/19 23:10 03/17/19 23:10 03/17/19 23:10 03/17/19 23:10 Medical Decision Making - Medical Decision Making 03/18/19 00:11 Patient seen by the advanced practice provider under my direct supervision. Ancillary testing reviewed as necessary. I agree with plan as outlined by the advanced practice provider. Discharge - Discharge Information Condition: Fair - Follow up/Referral Referrals: Faisal Mcqueen MD [Primary Care Provider] - - Patient Discharge Instructions - Post Discharge Activity
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
[2019-03-18] MEDS ORDERED: LIDOCAINE 5% TOPICAL PATCH TP ONE (01:59)
[2019-03-18] MEDS ORDERED: BACLOFEN 10 MG TABLET (FP) PO ONE (01:59)
[2019-03-18] MEDS ORDERED: BACLOFEN 10 MG TABLET (FP) ONE (02:19)
[2019-03-18] MEDS ORDERED: LIDOCAINE 5% TOPICAL PATCH ONE (02:20)
[2019-03-18] MEDS ORDERED: LIDOCAINE PATCH REMOVAL MC SCH (22:00)
== END 2019-03-18 02:50 | disposition home or self-care (01) ==
LOC: JER 23:06
DX: S46.819A Strain of other muscles, fascia and tendons at shoulder and upper arm level, unspecified arm, initial encounter (principal); M62.838 Other muscle spasm; V53.5XXA Driver of pick-up truck or van injured in collision with car, pick-up truck or van in traffic accident, initial encounter; Y92.414 Local residential or business street as the place of occurrence of the external cause; Y93.89 Activity, other specified; Y99.8 Other external cause status; Z91.013 Allergy to seafood; Z88.8 Allergy status to other drugs, medicaments and biological substances; J45.909 Unspecified asthma, uncomplicated; I10 Essential (primary) hypertension; E78.00 Pure hypercholesterolemia, unspecified; E11.42 Type 2 diabetes mellitus with diabetic polyneuropathy; Z79.4 Long term (current) use of insulin; Z86.718 Personal history of other venous thrombosis and embolism; Z86.711 Personal history of pulmonary embolism; Z79.01 Long term (current) use of anticoagulants; E66.01 Morbid (severe) obesity due to excess calories; Z68.38 Body mass index [BMI] 38.0-38.9, adult; K76.0 Fatty (change of) liver, not elsewhere classified
CPT/HCPCS: 72131-TC; 74176-TC; 99282-25; J0475

== ENCOUNTER 2020-04-29 04:33 | Emergency (ER) | payer OTHER ==
[2020-04-29] MEDS ORDERED: SODIUM CHLORIDE 1,000 ML IV STA (05:50)
[2020-04-29] MEDS ORDERED: ACETAMINOPHEN 500 MG TABLET (FP) PO ONE (05:50)
[2020-04-29 06:26] VITALS: BMI 39.1
[2020-04-29] MEDS ORDERED: ACETAMINOPHEN 325 MG TABLET (FP) ONE ×2 (06:32→11:05)
[2020-04-29 07:27] LABS: HEMATOCRIT 38.6 % (32.4-45.2); HEMOGLOBIN 12.6 GM/dL (10.7-15.3); MCH 30.2 pg (25.7-33.7); MCHC 32.6 g/dl (32.0-36.0); MEAN CELL VOLUME 92.8 fl (80-96); MEAN PLT VOLUME 11.2 fl (7.5-11.1); PLATELET COUNT 141 K/MM3 (134-434); RBC 4.16 M/mm3 (3.60-5.2)
[2020-04-29 07:39] LABS: CALCIUM 9.4 mg/dL (8.5-10.1)
[2020-04-29 07:40] LABS: ALBUMIN 4.1 g/dl (3.4-5.0); BLOOD UREA NITROGEN 16.2 mg/dL (7-18)
[2020-04-29 07:43] LABS: CREATININE 1.2 mg/dL (0.55-1.3)
[2020-04-29 07:44] LABS: BILIRUBIN,TOTAL 0.2 mg/dL (0.2-1); TOT PROT 8.3 g/dl (6.4-8.2)
[2020-04-29 08:10] LABS: WHITE BLOOD COUNT 8.7 K/mm3 (4.0-10.0)
[2020-04-29 10:34] LABS: PH,URINE 5.5 (5.0-8.0); URINE APPEARANCE CLEAR; URINE BILIRUBIN NEGATIVE (NEGATIVE); URINE COLOR YELLOW; URINE GLUCOSE (UA) NEGATIVE (NEGATIVE); URINE KETONE NEGATIVE (NEGATIVE); URINE LEUK ESTERASE NEGATIVE (NEGATIVE); URINE NITRITE NEGATIVE (NEGATIVE); URINE PROTEIN NEGATIVE (NEGATIVE); URINE UROBILINOGEN 0.2 mg/dL (0.2-1.0)
[2020-04-29] MEDS ORDERED: ACETAMINOPHEN 325 MG TABLET (FP) PO ONE (10:53)
[2020-04-29] MEDS ORDERED: LIDOCAINE 5% TOPICAL PATCH TP ONE (10:53)
[2020-04-29] MEDS ORDERED: LIDOCAINE 5% TOPICAL PATCH ONE (11:06)
[2020-04-29] MEDS ORDERED: METHOCARBAMOL 500 MG TABLET PO ONE (11:52)
[2020-04-29] MEDS ORDERED: METHOCARBAMOL 500 MG TABLET ONE (13:00)
[2020-04-29 13:07] VITALS: BP 180/83; PULSE 49
[2020-04-29] MEDS ORDERED: oxyCODONE HCL 5 MG TABLET PO ONE (14:21)
[2020-04-29] MEDS ORDERED: oxyCODONE HCL 5 MG TABLET ONE (14:27)
[2020-04-29] MEDS ORDERED: LIDOCAINE PATCH REMOVAL MC SCH (22:00)
== END 2020-04-29 15:45 | disposition home or self-care (01) ==
LOC: JER 04:33
DX: R10.31 Right lower quadrant pain (principal)
CPT/HCPCS: 36415; 74176-TC; 80053; 81003; 85025; 87077; 87086; 93005; 93010; 99285-25

== ENCOUNTER 2021-07-09 23:53 | Emergency (ER) | payer OTHER ==
[2021-07-10 00:39] VITALS: TEMP 97.9; BMI 33.6
[2021-07-10] MEDS ORDERED: morphine SULFATE 4 MG/ML VIAL ONE (01:49)
[2021-07-10] MEDS ORDERED: LIDOCAINE 5% TOPICAL PATCH ONE (01:50)
[2021-07-10] MEDS ORDERED: KETOROLAC TROMETHAMINE 15 MG/ML VIAL ONE (01:51)
[2021-07-10 01:55] LABS: BASO % 0.7 % (0-2.0); EOS % 1.2 % (0-4.5); HEMATOCRIT 35.6 % (32.4-45.2); HEMOGLOBIN 11.9 GM/dL (10.7-15.3); LYMPH % 21.1 % (8-40); MCH 30.1 pg (25.7-33.7); MCHC 33.5 g/dl (32.0-36.0); MEAN PLT VOLUME 8.9 fl (7.5-11.1); MONO % 8.2 % (3.8-10.2); NEUT % 68.8 % (42.8-82.8); PLATELET COUNT 150 10^3/uL (134-434); RBC 3.95 M/mm3 (3.60-5.2); RDW 15.3 % (11.6-15.6); WHITE BLOOD COUNT 5.8 K/mm3 (4.0-10.0)
[2021-07-10 02:22] LABS: BLOOD UREA NITROGEN 15.2 mg/dL (7-18); CALCIUM 9.7 mg/dL (8.5-10.1)
[2021-07-10 02:23] LABS: ALBUMIN 3.7 g/dl (3.4-5.0)
[2021-07-10 02:26] LABS: CREATININE 1.1 mg/dL (0.55-1.3)
[2021-07-10 02:27] LABS: BILIRUBIN,TOTAL 0.3 mg/dL (0.2-1); TOT PROT 7.5 g/dl (6.4-8.2)
[2021-07-10] MEDS ORDERED: predniSONE 20 MG TABLET (UD) PO ONE (02:27)
[2021-07-10] MEDS ORDERED: predniSONE 20 MG TABLET (UD) ONE (02:36)
[2021-07-10] MEDS ORDERED: ACETAMINOPHEN 1000 MG/100 ML BAG IVPB ONE (03:11)
[2021-07-10] MEDS ORDERED: ACETAMINOPHEN INJECTION 100 ML IVPB ONE (03:13)
[2021-07-10] MEDS ORDERED: morphine SULFATE IMMEDIATE RELEASE 30 MG TAB PO ONE (04:23)
[2021-07-10 04:26] VITALS: BP 157/67; PULSE 57
[2021-07-10] MEDS ORDERED: morphine SULFATE IMMEDIATE RELEASE 30 MG TAB ONE (04:26)
== END 2021-07-10 06:23 | disposition home or self-care (01) ==
LOC: JER 23:53
PROC: 3E0333Z Introduction of Anti-inflammatory into Peripheral Vein, Percutaneous Approach (ICD-10-PCS; principal; 2021-07-09)
DX: M19.011 Primary osteoarthritis, right shoulder (principal); M19.012 Primary osteoarthritis, left shoulder
CPT/HCPCS: 36415; 70450-TC; 71045-TC-FY; 80053; 84484; 85025; 86140; 93005; 93010; 99285-25

== ENCOUNTER 2021-07-11 22:47 | Emergency (ER) | payer OTHER ==
[2021-07-11 22:52] VITALS: BP 149/78; PULSE 82; BMI 37.9
[2021-07-11 22:59] VITALS: TEMP 99.3
== END 2021-07-11 23:27 | disposition home or self-care (01) ==
LOC: JERFT 22:47
DX: M79.602 Pain in left arm (principal); M79.601 Pain in right arm
CPT/HCPCS: 99283-25

== ENCOUNTER 2021-07-14 16:02 | Inpatient (IN) | payer OTHER ==
[2021-07-14] MEDS ORDERED: CLINDAMYCIN 600MG PREMIX IVPB 600 MG/50 ML BAG IVPB ONE ×2 (18:09→20:55)
[2021-07-14] MEDS ORDERED: ALBUTEROL SO4 HFA INHALER IH PRN (22:37)
[2021-07-15 03:38] VITALS: BMI 36.7
[2021-07-15] MEDS: CLINDAMYCIN 300 MG PREMIX IVPB 300 MG/50 ML BAG IVPB SCH ×2 (04:34→10:51)
[2021-07-15] MEDS: ACETAMINOPHEN 1000 MG/100 ML BAG IVPB PRN ×4 (04:43→23:31)
[2021-07-15] MEDS: DOCUSATE SODIUM 100 MG CAPSULE (FP) PO SCH ×3 (06:08→21:43)
[2021-07-15] MEDS: INSULIN SLIDING SCALE (NOVOLOG) 1 VIAL SQ SCH ×4 (06:08→22:47)
[2021-07-15 08:40] LABS: HEMOGLOBIN 10.8 GM/dL (10.7-15.3); RBC 3.58 M/mm3 (3.60-5.2); WHITE BLOOD COUNT 3.1 K/mm3 (4.0-10.0)
[2021-07-15 08:41] LABS: BASO % 0.7 % (0-2.0); EOS % 3.8 % (0-4.5); HEMATOCRIT 32.1 % (32.4-45.2); LYMPH % 28.5 % (8-40); MCH 30.2 pg (25.7-33.7); MCHC 33.7 g/dl (32.0-36.0); MEAN CELL VOLUME 89.5 fl (80-96); MEAN PLT VOLUME 8.8 fl (7.5-11.1); MONO % 11.1 % (3.8-10.2); NEUT % 55.9 % (42.8-82.8); PLATELET COUNT 171 10^3/uL (134-434); RDW 14.6 % (11.6-15.6)
[2021-07-15 09:01] LABS: CALCIUM 8.8 mg/dL (8.5-10.1)
[2021-07-15 09:02] LABS: ALBUMIN 2.9 g/dl (3.4-5.0); BLOOD UREA NITROGEN 12.9 mg/dL (7-18)
[2021-07-15 09:05] LABS: CREATININE 0.9 mg/dL (0.55-1.3)
[2021-07-15 09:06] LABS: TOT PROT 6.6 g/dl (6.4-8.2)
[2021-07-15 09:07] LABS: BILIRUBIN,TOTAL 0.3 mg/dL (0.2-1)
[2021-07-15] MEDS ORDERED: INSULIN REGULAR HUMAN 100 UNITS/ML *VIAL SQ SCH (10:00)
[2021-07-15] MEDS ORDERED: ENOXAPARIN NA (PORCINE) 30 MG/0.3 ML DISP.SYRIN SQ SCH (10:00)
[2021-07-15] MEDS: LISINOPRIL 20 MG TABLET PO SCH (10:52)
[2021-07-15] MEDS: BISACODYL 5 MG TABLET.DR (FP) PO SCH (10:52)
[2021-07-15] MEDS: POLYETHYLENE GLYCOL (HEALTHYLAX) 3350 17 GM PACKET PO SCH (10:52)
[2021-07-15] MEDS ORDERED: INSULIN (NOVOLOG) ASPART 100 UNITS/ML 10ML VIAL ONE ×2 (11:24→22:43)
[2021-07-15] MEDS: TIOTROPIUM BROMIDE 2.5 MCG (SPIRIVA) RESPIMAT INHALER IH SCH ×2 (12:51→12:57)
[2021-07-15] MEDS: FENOFIBRIC ACID 135 MG CAP PO SCH (12:51)
[2021-07-15] MEDS: BUDESONIDE/FORMETEROL FUMARATE 160/4.5 mcg INHALER IH SCH ×2 (12:52→21:46)
[2021-07-15] MEDS: ENOXAPARIN 120 MG, ENOXAPARIN 30 MG SQ SCH (16:32)
[2021-07-15] MEDS ORDERED: MIRTAZAPINE 15 MG TABLET (FP) PO SCH (22:00)
[2021-07-15] MEDS ORDERED: MONTELUKAST NA 10 MG TABLET PO SCH (22:00)
[2021-07-15] MEDS ORDERED: PRAMIPEXOLE DIHYDROCHLORIDE 0.25 MG TABLET PO SCH (22:00)
[2021-07-15] MEDS ORDERED: ATORVASTATIN CA 10 MG TABLET (FP) PO SCH (22:00)
[2021-07-16] MEDS: ACETAMINOPHEN 1000 MG/100 ML BAG IVPB PRN (06:13)
[2021-07-16] MEDS: DOCUSATE SODIUM 100 MG CAPSULE (FP) PO SCH (06:14)
[2021-07-16] MEDS: INSULIN SLIDING SCALE (NOVOLOG) 1 VIAL SQ SCH ×2 (06:41→11:40)
[2021-07-16] MEDS: FENOFIBRIC ACID 135 MG CAP PO SCH (10:04)
[2021-07-16] MEDS: ENOXAPARIN 120 MG, ENOXAPARIN 30 MG SQ SCH (10:04)
[2021-07-16] MEDS: BISACODYL 5 MG TABLET.DR (FP) PO SCH (10:04)
[2021-07-16] MEDS: LISINOPRIL 20 MG TABLET PO SCH (10:04)
[2021-07-16] MEDS: BUDESONIDE/FORMETEROL FUMARATE 160/4.5 mcg INHALER IH SCH (10:05)
[2021-07-16] MEDS: TIOTROPIUM BROMIDE 2.5 MCG (SPIRIVA) RESPIMAT INHALER IH SCH (10:05)
[2021-07-16] MEDS: POLYETHYLENE GLYCOL (HEALTHYLAX) 3350 17 GM PACKET PO SCH (10:05)
[2021-07-16 13:26] VITALS: BP 130/68; PULSE 50; TEMP 98.1
== END 2021-07-16 15:23 | disposition home or self-care (01) | DRG 351 ==
LOC: JER 16:02 → JERBED 18:12 → J7W 07-15 02:06
PROVIDERS: ADMIT Internal Medicine; ATTEND Internal Medicine
DX: M19.031 Primary osteoarthritis, right wrist (principal); L03.114 Cellulitis of left upper limb; L03.113 Cellulitis of right upper limb; K21.9 Gastro-esophageal reflux disease without esophagitis; I25.10 Atherosclerotic heart disease of native coronary artery without angina pectoris; E78.5 Hyperlipidemia, unspecified; I27.20 Pulmonary hypertension, unspecified; I11.0 Hypertensive heart disease with heart failure; I50.9 Heart failure, unspecified; E11.40 Type 2 diabetes mellitus with diabetic neuropathy, unspecified; D68.61 Antiphospholipid syndrome; K76.0 Fatty (change of) liver, not elsewhere classified; E11.51 Type 2 diabetes mellitus with diabetic peripheral angiopathy without gangrene; E66.9 Obesity, unspecified; Z68.36 Body mass index [BMI] 36.0-36.9, adult; Z86.711 Personal history of pulmonary embolism; Z86.718 Personal history of other venous thrombosis and embolism
CPT/HCPCS: 36415; 73110-TC-LT-FY; 73110-TC-RT-FY; 80053; 82962; 85025; 87040; 93970-TC; 99285-25; C9803-CS; U0003; U0005

== ENCOUNTER 2021-10-04 15:06 | Emergency (ER) | payer OTHER ==
[2021-10-04 15:22] VITALS: BP 161/87; PULSE 56; TEMP 97.8; BMI 35.7
== END 2021-10-04 19:30 | disposition home or self-care (01) ==
LOC: JER 15:06
DX: I82.401 Acute embolism and thrombosis of unspecified deep veins of right lower extremity (principal)
CPT/HCPCS: 93971-TC; 99284-25

== ENCOUNTER 2022-01-02 12:18 | Emergency (ER) | payer OTHER ==
[2022-01-02 12:44] VITALS: BP 165/81; PULSE 49; RESP 18; TEMP 98; BMI 36.0
[2022-01-02] MEDS ORDERED: ACETAMINOPHEN 500 MG TABLET (FP) PO ONE (13:38)
[2022-01-02] MEDS ORDERED: ACETAMINOPHEN 500 MG TABLET (FP) ONE (13:42)
== END 2022-01-02 15:51 | disposition home or self-care (01) ==
LOC: JER 12:18
DX: S09.90XA Unspecified injury of head, initial encounter (principal); W20.8XXA Other cause of strike by thrown, projected or falling object, initial encounter
CPT/HCPCS: 70450-TC; 99284-25

== ENCOUNTER 2022-01-09 13:05 | Emergency (ER) | payer OTHER ==
[2022-01-09 13:25] VITALS: BP 185/71; PULSE 74; RESP 17; TEMP 97.4; BMI 34.4
[2022-01-09] MEDS ORDERED: LIDOCAINE 5% TOPICAL PATCH TP ONE (15:23)
[2022-01-09] MEDS ORDERED: LIDOCAINE 5% TOPICAL PATCH ONE (15:25)
[2022-01-09 17:03] LABS: HEMATOCRIT 40.9 % (32.4-45.2); HEMOGLOBIN 13.1 GM/dL (10.7-15.3); MCH 29.5 pg (25.7-33.7); MCHC 31.9 g/dl (32.0-36.0); MEAN CELL VOLUME 92.3 fl (80-96); PLATELET COUNT 169 10^3/uL (134-434); RBC 4.43 M/mm3 (3.60-5.2); RDW 15.5 % (11.6-15.6); WHITE BLOOD COUNT 4.5 K/mm3 (4.0-10.0)
[2022-01-09 17:17] LABS: CALCIUM 9.8 mg/dL (8.5-10.1)
[2022-01-09 17:18] LABS: ALBUMIN 4.2 g/dl (3.4-5.0); BLOOD UREA NITROGEN 11.7 mg/dL (7-18)
[2022-01-09 17:20] LABS: CREATININE 0.9 mg/dL (0.55-1.3)
[2022-01-09 17:22] LABS: TOT PROT 8.1 g/dl (6.4-8.2)
[2022-01-09 17:23] LABS: BILIRUBIN,TOTAL 0.4 mg/dL (0.2-1)
[2022-01-09 19:38] LABS: INR 1.34 (0.83-1.09); PROTHROMBIN TIME (PATIENT) 15.4 SEC (9.7-13.0)
[2022-01-09 19:41] LABS: ACTIVATED PTT 40.7 SECONDS (25.2-36.5)
[2022-01-09] MEDS ORDERED: LIDOCAINE PATCH REMOVAL MC SCH (22:00)
== END 2022-01-09 20:43 | disposition home or self-care (01) ==
LOC: JERFT 13:05
DX: S20.211A Contusion of right front wall of thorax, initial encounter (principal); W01.0XXA Fall on same level from slipping, tripping and stumbling without subsequent striking against object, initial encounter
CPT/HCPCS: 29581-RT; 36415; 70450-TC; 71101-TC-RT-FY; 80053; 84484; 85027; 85610; 85730; 93005; 93010; 99285-25; G0463-25

== ENCOUNTER 2022-01-15 09:11 | Emergency (ER) | payer OTHER ==
[2022-01-15 09:23] VITALS: BP 144/77; PULSE 55; RESP 17; TEMP 98.1; BMI 29.4
== END 2022-01-15 10:12 | disposition home or self-care (01) ==
LOC: JERFT 09:11
DX: M79.10 Myalgia, unspecified site (principal)
CPT/HCPCS: 99281-25

== ENCOUNTER 2022-12-07 13:00 | Emergency (ER) | payer OTHER ==
[2022-12-07 13:04] VITALS: BP 148/83; PULSE 77; RESP 18; TEMP 97.9; BMI 39.1
[2022-12-07 14:47] LABS: BASO % 0.8 % (0-2.0); EOS % 3.3 % (0-4.5); HEMATOCRIT 37.6 % (32.4-45.2); HEMOGLOBIN 12.6 GM/dL (10.7-15.3); LYMPH % 19.2 % (8-40); MCH 30.3 pg (25.7-33.7); MCHC 33.5 g/dl (32.0-36.0); MEAN CELL VOLUME 90.4 fl (80-96); MEAN PLT VOLUME 8.7 fl (7.5-11.1); MONO % 10.1 % (3.8-10.2); NEUT % 66.6 % (42.8-82.8); PLATELET COUNT 163 10^3/uL (134-434); RBC 4.16 M/mm3 (3.60-5.2); RDW 14.5 % (11.6-15.6); WHITE BLOOD COUNT 4.1 K/mm3 (4.0-10.0)
[2022-12-07 14:54] LABS: INR 1.62 (0.83-1.09); PROTHROMBIN TIME (PATIENT) 18.7 SEC (9.7-13.0)
[2022-12-07 14:57] LABS: ACTIVATED PTT 36.5 SECONDS (25.2-36.5)
[2022-12-07 15:39] LABS: CALCIUM 9.2 mg/dL (8.5-10.1)
[2022-12-07 15:40] LABS: BLOOD UREA NITROGEN 12.4 mg/dL (7-18)
[2022-12-07 15:42] LABS: CREATININE 1.1 mg/dL (0.55-1.3)
[2022-12-07 15:43] LABS: ALBUMIN 3.6 g/dl (3.4-5.0)
[2022-12-07 15:44] LABS: BILIRUBIN,TOTAL 0.3 mg/dL (0.2-1); TOT PROT 7.6 g/dl (6.4-8.2)
[2022-12-07 15:48] LABS: N-TERMINAL BNP 111.7 pg/ml (5-125)
[2022-12-07] MEDS ORDERED: IBUPROFEN 600 MG TABLET (FP) PO ONE ×2 (19:05→19:26)
== END 2022-12-07 21:41 | disposition home or self-care (01) ==
LOC: JER 13:00
DX: R22.41 Localized swelling, mass and lump, right lower limb (principal); I82.403 Acute embolism and thrombosis of unspecified deep veins of lower extremity, bilateral
CPT/HCPCS: 36415; 71045-TC-FY; 80053; 83880; 84484; 85025; 85610; 85730; 93005; 93010; 93970-TC; 99285-25

== ENCOUNTER 2022-12-18 22:25 | Emergency (ER) | payer OTHER ==
[2022-12-18 22:38] VITALS: BP 153/87; PULSE 80; RESP 16; TEMP 98.2; BMI 31.3
== END 2022-12-19 03:19 | disposition home or self-care (01) ==
LOC: JER 22:25
DX: R22.41 Localized swelling, mass and lump, right lower limb (principal); M79.604 Pain in right leg; S81.801A Unspecified open wound, right lower leg, initial encounter; X58.XXXA Exposure to other specified factors, initial encounter
CPT/HCPCS: 93970-TC; 99284-25

== ENCOUNTER 2022-12-22 18:09 | Emergency (ER) | payer OTHER ==
[2022-12-22 18:29] VITALS: BMI 39.1
[2022-12-22] MEDS ORDERED: SODIUM CHLORIDE 1,000 ML IV STA (18:49)
[2022-12-22] MEDS ORDERED: ACETAMINOPHEN 1000 MG/100 ML BAG IVPB ONE (19:01)
[2022-12-22] MEDS ORDERED: METOCLOPRAMIDE HCL INJECTION 10 MG/2 ML VIAL IVPB ONE (19:05)
[2022-12-22] MEDS ORDERED: FAMOTIDINE 20 MG/50 ML IVPB 20 MG/50 ML MG IVPB ONE ×2 (19:06→19:54)
[2022-12-22] MEDS ORDERED: METOCLOPRAMIDE HCL INJECTION 10 MG/2 ML VIAL ONE (19:54)
[2022-12-22] MEDS ORDERED: ACETAMINOPHEN INJECTION 100 ML IVPB ONE (19:54)
[2022-12-22 20:03] LABS: URINE APPEARANCE CLEAR; URINE BILIRUBIN NEGATIVE (NEGATIVE); URINE COLOR YELLOW; URINE GLUCOSE (UA) 3+ (NEGATIVE); URINE KETONE NEGATIVE (NEGATIVE); URINE LEUK ESTERASE NEGATIVE (NEGATIVE); URINE NITRITE NEGATIVE (NEGATIVE); URINE PROTEIN NEGATIVE (NEGATIVE); URINE UROBILINOGEN 0.2 mg/dL (0.2-1.0)
[2022-12-22 20:19] LABS: BASO % 0.2 % (0-2.0); EOS % 0.1 % (0-4.5); HEMATOCRIT 37.2 % (32.4-45.2); HEMOGLOBIN 12.2 GM/dL (10.7-15.3); LYMPH % 4.6 % (8-40); MCH 29.7 pg (25.7-33.7); MCHC 32.9 g/dl (32.0-36.0); MEAN CELL VOLUME 90.4 fl (80-96); MEAN PLT VOLUME 9.5 fl (7.5-11.1); MONO % 6.8 % (3.8-10.2); NEUT % 88.3 % (42.8-82.8); PLATELET COUNT 153 10^3/uL (134-434); RBC 4.12 M/mm3 (3.60-5.2); RDW 14.9 % (11.6-15.6); WHITE BLOOD COUNT 10.9 K/mm3 (4.0-10.0)
[2022-12-22 20:26] LABS: INR 1.42 (0.83-1.09); PROTHROMBIN TIME (PATIENT) 16.4 SEC (9.7-13.0)
[2022-12-22 20:29] LABS: ACTIVATED PTT 31.2 SECONDS (25.2-36.5)
[2022-12-22 20:49] LABS: POTASSIUM 4.5 mmol/L (3.5-5.1)
[2022-12-22 20:51] LABS: CALCIUM 9.5 mg/dL (8.5-10.1)
[2022-12-22 20:53] LABS: BLOOD UREA NITROGEN 14.4 mg/dL (7-18)
[2022-12-22 20:57] LABS: BILIRUBIN,TOTAL 0.5 mg/dL (0.2-1); TOT PROT 8.2 g/dl (6.4-8.2)
[2022-12-22] MEDS ORDERED: CEFTRIAXONE 1,000 MG in DEXTROSE 5%-WATER - 50 ML IVPB ONE (22:23)
[2022-12-22] MEDS ORDERED: AZITHROMYCIN IVPB 500 MG in DEXTROSE 5%-WATER - 250 ML IVPB ONE (22:24)
[2022-12-22] MEDS ORDERED: CEFTRIAXONE 1 GM/50 ML BAG ONE (22:35)
[2022-12-22 23:14] LABS: N-TERMINAL BNP 107.3 pg/ml (5-125)
[2022-12-22] MEDS ORDERED: AZITHROMYCIN IVPB 500 MG/250 ML BAG IVPB ONE (23:59)
[2022-12-23] MEDS ORDERED: LIDOCAINE 5% TOPICAL PATCH TP ONE (00:25)
[2022-12-23] MEDS ORDERED: LIDOCAINE 5% TOPICAL PATCH ONE (00:40)
[2022-12-23 01:18] VITALS: BP 122/53; PULSE 73; RESP 17; TEMP 98.1
[2022-12-23] MEDS ORDERED: LIDOCAINE PATCH REMOVAL MC ONE (13:00)
== END 2022-12-23 03:45 | disposition home or self-care (01) ==
LOC: JER 18:09
PROC: 3E03329 Introduction of Other Anti-infective into Peripheral Vein, Percutaneous Approach (ICD-10-PCS; principal; 2022-12-22)
PROC: 3E033NZ Introduction of Analgesics, Hypnotics, Sedatives into Peripheral Vein, Percutaneous Approach (ICD-10-PCS; 2022-12-22)
PROC: 3E033GC Introduction of Other Therapeutic Substance into Peripheral Vein, Percutaneous Approach (ICD-10-PCS; 2022-12-22)
PROC: 3E033GC Introduction of Other Therapeutic Substance into Peripheral Vein, Percutaneous Approach (ICD-10-PCS; 2022-12-22)
PROC: 3E03329 Introduction of Other Anti-infective into Peripheral Vein, Percutaneous Approach (ICD-10-PCS; 2022-12-23)
DX: R11.2 Nausea with vomiting, unspecified (principal); R51.9 Headache, unspecified; R10.84 Generalized abdominal pain; R60.0 Localized edema; R42 Dizziness and giddiness; R50.9 Fever, unspecified; Z20.822 Contact with and (suspected) exposure to COVID-19
CPT/HCPCS: 0241U-QW; 36415; 70450-TC; 71045-TC-FY; 71275-TC; 74176-TC; 76705-TC; 80053; 81003; 82962; 83605; 83690; 83880; 84484; 85025; 85610; 85730; 87040; 87086; 93005; 93010; 99285-25; Q9967

== ENCOUNTER 2023-09-29 00:29 | Emergency (ER) | payer OTHER ==
[2023-09-29 00:37] VITALS: PULSE 88; RESP 18; BMI 33.6
[2023-09-29] MEDS ORDERED: ACETAMINOPHEN INJECTION 100 ML IVPB ONE (01:11)
[2023-09-29] MEDS ORDERED: FAMOTIDINE 20 MG/50 ML IVPB 20 MG/50 ML MG IVPB ONE (01:11)
[2023-09-29] MEDS ORDERED: ONDANSETRON 4 MG/2 ML VIAL ONE (01:11)
[2023-09-29] MEDS ORDERED: MAG HYDROX/AL HYDROX/SIMETH 30 ML UNIT-DOSE CUP ONE (01:11)
[2023-09-29] MEDS: MAG HYDROX/AL HYDROX/SIMETH 30 ML UNIT-DOSE CUP PO ONE (02:03)
[2023-09-29] MEDS: FAMOTIDINE 20 MG/50 ML IVPB 20 MG/50 ML MG IVPB ONE (02:18)
[2023-09-29] MEDS: ACETAMINOPHEN 1000 MG/100 ML BAG IVPB ONE (02:18)
[2023-09-29] MEDS: ONDANSETRON 4 MG/2 ML VIAL IVPUSH ONE (02:18)
[2023-09-29] MEDS: SODIUM CHLORIDE 1,000 ML IV STA (02:18)
[2023-09-29 02:32] LABS: BASO % 0.2 % (0-2.0); EOS % 0.5 % (0-4.5); HEMATOCRIT 36.3 % (32.4-45.2); HEMOGLOBIN 12.2 GM/dL (10.7-15.3); LYMPH % 7.3 % (8-40); MCH 30.4 pg (25.7-33.7); MCHC 33.6 g/dl (32.0-36.0); MEAN CELL VOLUME 90.3 fl (80-96); MEAN PLT VOLUME 9.4 fl (7.5-11.1); MONO % 5.1 % (3.8-10.2); NEUT % 86.9 % (42.8-82.8); PLATELET COUNT 183 10^3/uL (134-434); RBC 4.02 M/mm3 (3.60-5.2); RDW 16.1 % (11.6-15.6); WHITE BLOOD COUNT 7.8 K/mm3 (4.0-10.0)
[2023-09-29 02:51] LABS: POTASSIUM 4.7 mmol/L (3.5-5.1)
[2023-09-29 02:53] LABS: CALCIUM 9.4 mg/dL (8.5-10.1)
[2023-09-29 02:54] LABS: BLOOD UREA NITROGEN 21.3 mg/dL (7-18)
[2023-09-29 02:56] LABS: CREATININE 1.2 mg/dL (0.55-1.3)
[2023-09-29 02:58] LABS: BILIRUBIN,TOTAL 0.6 mg/dL (0.2-1); TOT PROT 8.1 g/dl (6.4-8.2)
[2023-09-29 04:49] VITALS: BP 148/79; TEMP 98.6
== END 2023-09-29 06:32 | disposition home or self-care (01) ==
LOC: JER 00:29
PROC: 3E033GC Introduction of Other Therapeutic Substance into Peripheral Vein, Percutaneous Approach (ICD-10-PCS; principal; 2023-09-29)
PROC: 3E033GC Introduction of Other Therapeutic Substance into Peripheral Vein, Percutaneous Approach (ICD-10-PCS; 2023-09-29)
PROC: 3E033NZ Introduction of Analgesics, Hypnotics, Sedatives into Peripheral Vein, Percutaneous Approach (ICD-10-PCS; 2023-09-29)
DX: R11.2 Nausea with vomiting, unspecified (principal); L97.919 Non-pressure chronic ulcer of unspecified part of right lower leg with unspecified severity
CPT/HCPCS: 36415; 80053; 82962; 83690; 83735; 84484; 85025; 93005; 93010; 99285-25; J0131

== ENCOUNTER 2023-10-09 15:49 | Inpatient (IN) | payer OTHER ==
[2023-10-09] MEDS ORDERED: VANCOMYCIN 1 GRAM (PRE-DOCKED) 1,000 MG/250 ML BAG IVPB ONE (18:17)
[2023-10-09] MEDS ORDERED: PIPERACILLIN/TAZOB 4.5 GM 4.5 GM/100 ML BAG IVPB ONE (18:17)
[2023-10-09 18:25] LABS: BASO % 0.6 % (0-2.0); EOS % 0.1 % (0-4.5); HEMATOCRIT 37.2 % (32.4-45.2); HEMOGLOBIN 12.2 GM/dL (10.7-15.3); LYMPH % 12.3 % (8-40); MCH 29.5 pg (25.7-33.7); MCHC 32.8 g/dl (32.0-36.0); MEAN CELL VOLUME 89.9 fl (80-96); MEAN PLT VOLUME 10.7 fl (7.5-11.1); MONO % 4.8 % (3.8-10.2); NEUT % 82.2 % (42.8-82.8); PLATELET COUNT 214 10^3/uL (134-434); RBC 4.14 M/mm3 (3.60-5.2); RDW 15.6 % (11.6-15.6); WHITE BLOOD COUNT 8.9 K/mm3 (4.0-10.0)
[2023-10-09 18:32] LABS: INR 1.5 (0.83-1.09)
[2023-10-09 18:48] LABS: CHLORIDE 98 mmol/L (98-107); SODIUM 134 mmol/L (136-145)
[2023-10-09 18:50] LABS: CALCIUM 9.8 mg/dL (8.5-10.1)
[2023-10-09 18:51] LABS: ALBUMIN 3.8 g/dl (3.4-5.0); CO2 31 mmol/L (21-32); MAGNESIUM 2.4 mg/dL (1.8-2.4)
[2023-10-09 18:54] LABS: CREATININE 1.3 mg/dL (0.55-1.3); SGOT/AST 36 U/L (15-37); SGPT/ALT 40 U/L (13-61)
[2023-10-09 18:55] LABS: BILIRUBIN,TOTAL 0.6 mg/dL (0.2-1); TOT PROT 8.5 g/dl (6.4-8.2)
[2023-10-09] MEDS: PIPERACILLIN/TAZOB 4.5 GM 4.5 GM in DEXTROSE 5%-WATER 100 ML IVPB ONE (19:00)
[2023-10-09 19:04] LABS: ALK PHOS 172 U/L (45-117); ANION GAP 5 mmol/L (4-13); GLUCOSE,RANDOM 531 mg/dL (74-106); POTASSIUM 6.7 mmol/L (3.5-5.1)
[2023-10-09] MEDS: VANCOMYCIN 1,000 MG in DEXTROSE 5%-WATER - 250 ML IVPB ONE (19:51)
[2023-10-09] MEDS ORDERED: INSULIN ASPART SLIDING SCALE (NOVOLOG) 1 VIAL SQ ONE (20:27)
[2023-10-09] MEDS: INSULIN (NOVOLOG) ASPART 100 UNITS/ML 10ML VIAL SQ ONE ×2 (20:32)
[2023-10-09 20:59] LABS: ALBUMIN 3.7 g/dl (3.4-5.0); ALK PHOS 155 U/L (45-117); ANION GAP 10 mmol/L (4-13); BILIRUBIN,TOTAL 0.5 mg/dL (0.2-1); BLOOD UREA NITROGEN 26.6 mg/dL (7-18); CALCIUM 9.7 mg/dL (8.5-10.1); CHLORIDE 101 mmol/L (98-107); CO2 22 mmol/L (21-32); CREATININE 1.2 mg/dL (0.55-1.3); GLUCOSE,RANDOM 452 mg/dL (74-106); POTASSIUM 5.8 mmol/L (3.5-5.1); SGOT/AST 20 U/L (15-37); SGPT/ALT 37 U/L (13-61); SODIUM 134 mmol/L (136-145); TOT PROT 7.8 g/dl (6.4-8.2)
[2023-10-09 22:48] LABS: CHLORIDE 100 mmol/L (98-107); POTASSIUM 4.5 mmol/L (3.5-5.1); SODIUM 138 mmol/L (136-145)
[2023-10-09 22:50] LABS: ALBUMIN 3.8 g/dl (3.4-5.0); ANION GAP 5 mmol/L (4-13); BLOOD UREA NITROGEN 25.2 mg/dL (7-18); CALCIUM 9.6 mg/dL (8.5-10.1); CO2 33 mmol/L (21-32)
[2023-10-09 22:54] LABS: CREATININE 1.3 mg/dL (0.55-1.3); SGOT/AST 11 U/L (15-37)
[2023-10-09 22:55] LABS: BILIRUBIN,TOTAL 0.4 mg/dL (0.2-1)
[2023-10-09 22:56] LABS: ALK PHOS 146 U/L (45-117)
[2023-10-09 23:03] LABS: GLUCOSE,RANDOM 424 mg/dL (74-106); SGPT/ALT 35 U/L (13-61)
[2023-10-10] MEDS: INSULIN (NOVOLOG) ASPART 100 UNITS/ML 10ML VIAL SQ ONE (01:04)
[2023-10-10] MEDS: ACETAMINOPHEN 325 MG TABLET (FP) PO PRN (03:48)
[2023-10-10] MEDS: INSULIN (LEVEMIR) 100 UNITS/ML UNITS SQ ONE (05:11)
[2023-10-10] MEDS ORDERED: PATIENT'S OWN MEDICATION (NON-FORMULARY) (Tizanidine Hcl [Tizanidine Hcl] 2 MG Tablet) PO PRN (05:24)
[2023-10-10 05:35] VITALS: BMI 39.7
[2023-10-10] MEDS: INSULIN ASPART SLIDING SCALE (NOVOLOG) 1 VIAL SQ SCH (06:40)
[2023-10-10] MEDS ORDERED: DICLOFENAC SODIUM 75 MG, DICLOFENAC SODIUM 25 MG PO PRN (06:42)
[2023-10-10] MEDS: APIXABAN 2.5 MG TABLET PO SCH (09:30)
[2023-10-10] MEDS: LISINOPRIL 20 MG TABLET PO SCH (09:30)
[2023-10-10 10:00] LABS: HEMATOCRIT 38.2 % (32.4-45.2); HEMOGLOBIN 12.4 GM/dL (10.7-15.3); MCH 29.6 pg (25.7-33.7); MCHC 32.6 g/dl (32.0-36.0); MEAN CELL VOLUME 90.8 fl (80-96); MEAN PLT VOLUME 9.2 fl (7.5-11.1); PLATELET COUNT 221 10^3/uL (134-434); RBC 4.21 M/mm3 (3.60-5.2); RDW 15.6 % (11.6-15.6); WHITE BLOOD COUNT 9.3 K/mm3 (4.0-10.0)
[2023-10-10] MEDS ORDERED: ENOXAPARIN NA (PORCINE) 40 MG/0.4 ML DISP.SYRIN SQ SCH (10:00)
[2023-10-10 10:13] LABS: POTASSIUM 3.8 mmol/L (3.5-5.1)
[2023-10-10 10:19] LABS: CALCIUM 9.9 mg/dL (8.5-10.1)
[2023-10-10 10:20] LABS: ALBUMIN 3.7 g/dl (3.4-5.0); BLOOD UREA NITROGEN 22.6 mg/dL (7-18); MAGNESIUM 2.3 mg/dL (1.8-2.4)
[2023-10-10 10:24] LABS: BILIRUBIN,TOTAL 0.6 mg/dL (0.2-1); TOT PROT 7.6 g/dl (6.4-8.2)
[2023-10-10] MEDS ORDERED: INSULIN ASPART SLIDING SCALE (NOVOLOG) 1 VIAL SQ ONE ×2 (11:02→17:44)
[2023-10-10] MEDS: CEFAZOLIN 1 GM in DEXTROSE 5%-WATER - 50 ML IVPB SCH (13:39)
[2023-10-10 16:11] LABS: URINE APPEARANCE CLEAR; URINE BILIRUBIN NEGATIVE (NEGATIVE); URINE COLOR YELLOW; URINE GLUCOSE (UA) 3+ (NEGATIVE); URINE KETONE NEGATIVE (NEGATIVE); URINE LEUK ESTERASE NEGATIVE (NEGATIVE); URINE NITRITE NEGATIVE (NEGATIVE); URINE PROTEIN NEGATIVE (NEGATIVE); URINE UROBILINOGEN 0.2 mg/dL (0.2-1.0)
[2023-10-10] MEDS: oxyCODONE HCL 5 MG TABLET PO PRN (17:09)
[2023-10-10] MEDS: COLLAGENASE CLOSTRIDIUM HIST. 30 GRAMS TUBE TP SCH (18:25)
[2023-10-10] MEDS: INSULIN (LEVEMIR) 100 UNITS/ML UNITS SQ SCH (22:08)
[2023-10-10] MEDS: DOCUSATE SODIUM 100 MG CAPSULE (FP) PO SCH (22:10)
[2023-10-10] MEDS: ATORVASTATIN CA 40 MG TABLET (FP) PO SCH (22:11)
[2023-10-11] MEDS: GABAPENTIN 100 MG CAPSULE PO ONE (11:58)
[2023-10-11] MEDS: PIPERACILLIN/TAZOB 3.375 GM 3.375 GM in DEXTROSE 5%-WATER - 50 ML IVPB SCH (17:47)
[2023-10-11] MEDS: GABAPENTIN 100 MG CAPSULE PO SCH (21:21)
[2023-10-12] MEDS: INSULIN (LEVEMIR) 100 UNITS/ML UNITS SQ SCH (10:00)
[2023-10-12] MEDS ORDERED: INSULIN ASPART SLIDING SCALE (NOVOLOG) 1 VIAL SQ ONE (11:08)
[2023-10-12] MEDS: ACETAMINOPHEN WITH CODEINE 300MG/30MG TABLET PO PRN (18:13)
[2023-10-12] MEDS: LIDOCAINE 5% TOPICAL PATCH TP SCH (18:14)
[2023-10-12] MEDS: LIDOCAINE PATCH REMOVAL MC SCH (22:14)
[2023-10-13] MEDS ORDERED: INSULIN ASPART SLIDING SCALE (NOVOLOG) 1 VIAL SQ ONE (11:42)
[2023-10-13] MEDS: INSULIN ASPART SLIDING SCALE (NOVOLOG) 1 VIAL SQ SCH (16:45)
[2023-10-13] MEDS: traMADol HCL 50 MG TABLET PO PRN (22:14)
[2023-10-14] MEDS: INSULIN (LEVEMIR) 100 UNITS/ML UNITS SQ SCH (06:41)
[2023-10-14 23:05] VITALS: RESP 18
[2023-10-15] MEDS ORDERED: INSULIN ASPART SLIDING SCALE (NOVOLOG) 1 VIAL SQ ONE (06:36)
[2023-10-15 08:03] LABS: BASO % 1.1 % (0-2.0); EOS % 2.7 % (0-4.5); HEMATOCRIT 35.5 % (32.4-45.2); HEMOGLOBIN 11.3 GM/dL (10.7-15.3); LYMPH % 25.9 % (8-40); MCH 29.5 pg (25.7-33.7); MCHC 31.9 g/dl (32.0-36.0); MEAN CELL VOLUME 92.7 fl (80-96); MEAN PLT VOLUME 10.1 fl (7.5-11.1); MONO % 8.3 % (3.8-10.2); PLATELET COUNT 170 10^3/uL (134-434); RBC 3.82 M/mm3 (3.60-5.2); RDW 15.5 % (11.6-15.6); WHITE BLOOD COUNT 7.2 K/mm3 (4.0-10.0)
[2023-10-15 08:18] LABS: POTASSIUM 4.2 mmol/L (3.5-5.1)
[2023-10-15 08:24] LABS: ALBUMIN 3.5 g/dl (3.4-5.0); CALCIUM 9.7 mg/dL (8.5-10.1); MAGNESIUM 2.1 mg/dL (1.8-2.4)
[2023-10-15 08:26] LABS: CREATININE 1.1 mg/dL (0.55-1.3)
[2023-10-15 08:28] LABS: BILIRUBIN,TOTAL 0.8 mg/dL (0.2-1); TOT PROT 7.3 g/dl (6.4-8.2)
[2023-10-15] MEDS: INSULIN ASPART SLIDING SCALE (NOVOLOG) 1 VIAL SQ SCH (12:16)
[2023-10-15] MEDS: AMINO ACIDS/PROTEIN HYDROLYS 30 ML LIQUID.PKT PO SCH (14:44)
[2023-10-16 08:28] LABS: POTASSIUM 4.3 mmol/L (3.5-5.1)
[2023-10-16 08:29] LABS: EOS % 3.6 % (0-4.5); HEMATOCRIT 32.3 % (32.4-45.2); HEMOGLOBIN 10.4 GM/dL (10.7-15.3); LYMPH % 26.4 % (8-40); MCH 29.8 pg (25.7-33.7); MCHC 32.2 g/dl (32.0-36.0); MEAN CELL VOLUME 92.3 fl (80-96); MONO % 9.4 % (3.8-10.2); NEUT % 59.6 % (42.8-82.8); RBC 3.49 M/mm3 (3.60-5.2); RDW 15.5 % (11.6-15.6)
[2023-10-16 08:30] LABS: WHITE BLOOD COUNT 7.3 K/mm3 (4.0-10.0)
[2023-10-16 08:32] LABS: BLOOD UREA NITROGEN 21.2 mg/dL (7-18); CALCIUM 9.2 mg/dL (8.5-10.1)
[2023-10-16 08:35] LABS: CREATININE 0.9 mg/dL (0.55-1.3)
[2023-10-16 08:37] LABS: BILIRUBIN,TOTAL 0.4 mg/dL (0.2-1); TOT PROT 6.5 g/dl (6.4-8.2)
[2023-10-16 11:33] LABS: PLATELET ESTIMATE ADEQUATE
[2023-10-16] MEDS: INSULIN (LEVEMIR) 100 UNITS/ML UNITS SQ ONE (15:07)
[2023-10-16] MEDS: INSULIN ASPART SLIDING SCALE (NOVOLOG) 1 VIAL SQ SCH (17:10)
[2023-10-17 07:10] VITALS: BP 110/70; PULSE 71; TEMP 98.8
[2023-10-17 08:30] LABS: BASO % 1.1 % (0-2.0); EOS % 2.9 % (0-4.5); HEMATOCRIT 33.3 % (32.4-45.2); HEMOGLOBIN 10.8 GM/dL (10.7-15.3); LYMPH % 28.2 % (8-40); MCH 29.7 pg (25.7-33.7); MCHC 32.4 g/dl (32.0-36.0); MEAN CELL VOLUME 91.6 fl (80-96); MEAN PLT VOLUME 10.2 fl (7.5-11.1); MONO % 7.8 % (3.8-10.2); PLATELET COUNT 192 10^3/uL (134-434); POTASSIUM 3.9 mmol/L (3.5-5.1); RBC 3.64 M/mm3 (3.60-5.2); RDW 15.4 % (11.6-15.6); WHITE BLOOD COUNT 6.6 K/mm3 (4.0-10.0)
[2023-10-17 08:45] LABS: CALCIUM 9.5 mg/dL (8.5-10.1); MAGNESIUM 1.8 mg/dL (1.8-2.4)
[2023-10-17 08:46] LABS: ALBUMIN 3.5 g/dl (3.4-5.0); BLOOD UREA NITROGEN 20.6 mg/dL (7-18)
[2023-10-17 08:48] LABS: CREATININE 0.9 mg/dL (0.55-1.3)
[2023-10-17 08:50] LABS: TOT PROT 7.4 g/dl (6.4-8.2)
[2023-10-17 09:20] LABS: BILIRUBIN,TOTAL 0.6 mg/dL (0.2-1)
[2023-10-17] MEDS: AMOX TR/POT CLAV 500MG/125MG TABLETS (FP) PO ONE (09:46)
== END 2023-10-17 10:50 | disposition home or self-care (01) | DRG 383 ==
LOC: JER 15:49 → JERBED 20:35 → J8W 22:59
PROVIDERS: ADMIT Internal Medicine; ATTEND Nurse Practitioner Family
DX: L03.115 Cellulitis of right lower limb (principal); E11.40 Type 2 diabetes mellitus with diabetic neuropathy, unspecified; E11.51 Type 2 diabetes mellitus with diabetic peripheral angiopathy without gangrene; E11.621 Type 2 diabetes mellitus with foot ulcer; F11.20 Opioid dependence, uncomplicated; L97.919 Non-pressure chronic ulcer of unspecified part of right lower leg with unspecified severity; L97.929 Non-pressure chronic ulcer of unspecified part of left lower leg with unspecified severity; I83.009 Varicose veins of unspecified lower extremity with ulcer of unspecified site; E66.9 Obesity, unspecified; Z68.39 Body mass index [BMI] 39.0-39.9, adult; E78.5 Hyperlipidemia, unspecified
CPT/HCPCS: 36415; 71045-TC-FY; 73610-TC-LT-FY; 73610-TC-RT-FY; 80053; 81003; 82962; 83036; 83735; 84100; 85025; 85027; 85610; 85730; 86850; 86900; 86901; 87040; 87070; 87081; 87086; 87205; 93005; 93010; 93970-TC; 97116-GP; 97161-GP; 99285-25; G0463-25

== ENCOUNTER 2024-01-06 13:20 | Inpatient (IN) | payer OTHER ==
[2024-01-06 14:16] VITALS: BMI 39.1
[2024-01-06] MEDS ORDERED: PIPERACILLIN/TAZOB 4.5 GM 4.5 GM/100 ML BAG IVPB ONE (15:57)
[2024-01-06] MEDS ORDERED: VANCOMYCIN 1 GRAM (PRE-DOCKED) 1,000 MG/250 ML BAG IVPB ONE (15:58)
[2024-01-06 16:28] LABS: BASO % 0.7 % (0-2.0); EOS % 1.7 % (0-4.5); HEMATOCRIT 34.1 % (32.4-45.2); HEMOGLOBIN 10.9 GM/dL (10.7-15.3); LYMPH % 18.5 % (8-40); MEAN CELL VOLUME 90.7 fl (80-96); MEAN PLT VOLUME 8.7 fl (7.5-11.1); MONO % 7.7 % (3.8-10.2); NEUT % 71.4 % (42.8-82.8); PLATELET COUNT 235 10^3/uL (134-434); RBC 3.77 M/mm3 (3.60-5.2); RDW 15.5 % (11.6-15.6); WHITE BLOOD COUNT 7.1 K/mm3 (4.0-10.0)
[2024-01-06] MEDS: PIPERACILLIN/TAZOB 4.5 GM 4.5 GM in DEXTROSE 5%-WATER 100 ML IVPB ONE (16:29)
[2024-01-06 16:33] LABS: INR 1.48 (0.83-1.09); PROTHROMBIN TIME (PATIENT) 16.5 SEC (9.7-13.0)
[2024-01-06 16:36] LABS: ACTIVATED PTT 36.6 SECONDS (25.2-36.5)
[2024-01-06] MEDS: VANCOMYCIN 1,000 MG in DEXTROSE 5%-WATER - 250 ML IVPB ONE (16:43)
[2024-01-06 16:54] LABS: CHLORIDE 110 mmol/L (98-107); SODIUM 145 mmol/L (136-145)
[2024-01-06 16:57] LABS: CALCIUM 9.8 mg/dL (8.5-10.1)
[2024-01-06 16:58] LABS: ANION GAP 9 mmol/L (4-13); BLOOD UREA NITROGEN 28.3 mg/dL (7-18); CO2 27 mmol/L (21-32)
[2024-01-06 17:01] LABS: CREATININE 1.3 mg/dL (0.55-1.3); SGOT/AST 18 U/L (15-37); SGPT/ALT 19 U/L (13-61)
[2024-01-06 17:02] LABS: BILIRUBIN,TOTAL 0.6 mg/dL (0.2-1)
[2024-01-06 17:03] LABS: TOT PROT 7.9 g/dl (6.4-8.2)
[2024-01-06 17:04] LABS: ALK PHOS 73 U/L (45-117)
[2024-01-06 17:09] LABS: GLUCOSE,RANDOM 37 mg/dL (74-106)
[2024-01-06] MEDS ORDERED: POTASSIUM CHLORIDE ORAL LIQUID 20 MEQ/15 ML ONE (17:34)
[2024-01-06] MEDS: POTASSIUM CHLORIDE ORAL LIQUID 20 MEQ/15 ML PO ONE (17:39)
[2024-01-06 17:49] LABS: HIV INTERPRETATION NEGATIVE (NEGATIVE)
[2024-01-06] MEDS: LISINOPRIL 20 MG TABLET PO ONE (18:51)
[2024-01-06] MEDS: PIPERACILLIN/TAZOB 4.5 GM 4.5 GM in DEXTROSE 5%-WATER 100 ML IVPB SCH (18:53)
[2024-01-06 19:42] LABS: MAGNESIUM 2.2 mg/dL (1.8-2.4)
[2024-01-06 20:29] VITALS: RESP 18
[2024-01-06] MEDS: INSULIN (LEVEMIR) 100 UNITS/ML UNITS SQ SCH (21:22)
[2024-01-06] MEDS: ATORVASTATIN CA 40 MG TABLET (FP) PO SCH (21:23)
[2024-01-06] MEDS: INSULIN ASPART SLIDING SCALE (NOVOLOG) 1 VIAL SQ SCH (21:38)
[2024-01-07] MEDS: ACETAMINOPHEN 1000 MG/100 ML BAG IVPB ONE (06:41)
[2024-01-07] MEDS ORDERED: DEXTROSE 50%-WATER 25 GM/50 ML DISP.SYRIN ONE (06:46)
[2024-01-07] MEDS ORDERED: DEXTROSE 50%-WATER - 25 GM/50 ML VIAL IVPUSH PRN (06:56)
[2024-01-07] MEDS: DEXTROSE 50%-WATER 25 GM/50 ML DISP.SYRIN IVPUSH ONE (07:58)
[2024-01-07 08:45] LABS: HEMATOCRIT 35.5 % (32.4-45.2); HEMOGLOBIN 11.2 GM/dL (10.7-15.3); MCH 29.2 pg (25.7-33.7); MCHC 31.5 g/dl (32.0-36.0); MEAN CELL VOLUME 92.6 fl (80-96); MEAN PLT VOLUME 9.1 fl (7.5-11.1); PLATELET COUNT 170 10^3/uL (134-434); RBC 3.83 M/mm3 (3.60-5.2); RDW 15.6 % (11.6-15.6); WHITE BLOOD COUNT 5.1 K/mm3 (4.0-10.0)
[2024-01-07 09:28] LABS: POTASSIUM 4.2 mmol/L (3.5-5.1)
[2024-01-07 09:31] LABS: ALBUMIN 3.3 g/dl (3.4-5.0); BLOOD UREA NITROGEN 26.3 mg/dL (7-18); MAGNESIUM 2.2 mg/dL (1.8-2.4)
[2024-01-07 09:34] LABS: CREATININE 1.4 mg/dL (0.55-1.3); PHOSPHOROUS 3.4 mg/dL (2.5-4.9)
[2024-01-07 09:35] LABS: BILIRUBIN,TOTAL 0.3 mg/dL (0.2-1); TOT PROT 6.8 g/dl (6.4-8.2)
[2024-01-07] MEDS: ACETAMINOPHEN 500 MG TABLET (FP) PO ONE (11:09)
[2024-01-07] MEDS ORDERED: PATIENT'S OWN MEDICATION (NON-FORMULARY) (Tizanidine Hcl [Tizanidine Hcl] 2 MG Tablet) PO PRN (14:21)
[2024-01-07] MEDS ORDERED: PATIENT'S OWN MEDICATION (NON-FORMULARY) (Oxycodone Hcl/Acetaminophen [Endocet 10-325 Mg T PO SCH (14:45)
[2024-01-07] MEDS: FUROSEMIDE 40 MG/4 ML INJECTABLE VIAL IVPUSH SCH (17:27)
[2024-01-07] MEDS: BISACODYL 5 MG TABLET.DR (FP) PO SCH (17:27)
[2024-01-07] MEDS: PIPERACILLIN/TAZOB 3.375 GM 3.375 GM in DEXTROSE 5%-WATER - 50 ML IVPB SCH (17:27)
[2024-01-07] MEDS ORDERED: PATIENT'S OWN MEDICATION (NON-FORMULARY) (Oxycodone Hcl/Acetaminophen [Endocet 10-325 Mg T PO PRN (20:22)
[2024-01-07] MEDS: oxyCODONE HCL 5 MG TABLET PO PRN (20:36)
[2024-01-07] MEDS: ACETAMINOPHEN 325 MG TABLET (FP) PO PRN (20:36)
[2024-01-07] MEDS: ATORVASTATIN CA 40 MG TABLET (FP) PO SCH (21:45)
[2024-01-07] MEDS: GABAPENTIN 300 MG CAPSULE PO SCH (21:45)
[2024-01-07] MEDS: APIXABAN 2.5 MG TABLET PO SCH (21:46)
[2024-01-07] MEDS: INSULIN (LEVEMIR) 100 UNITS/ML UNITS SQ SCH (21:46)
[2024-01-07] MEDS: ZINC OXIDE 20% TOPICAL OINTMENT 30 GM TUBE TP SCH (21:49)
[2024-01-08] MEDS: oxyCODONE HCL 5 MG TABLET PO PRN ×2 (01:10→09:13)
[2024-01-08] MEDS ORDERED: EMPAGLIFLOZIN (JARDIANCE) 10 MG TABLET PO SCH (07:00)
[2024-01-08 08:38] LABS: HEMATOCRIT 33.5 % (32.4-45.2); HEMOGLOBIN 10.7 GM/dL (10.7-15.3); MCH 29.2 pg (25.7-33.7); MCHC 31.9 g/dl (32.0-36.0); MEAN CELL VOLUME 91.5 fl (80-96); MEAN PLT VOLUME 8.8 fl (7.5-11.1); PLATELET COUNT 213 10^3/uL (134-434); RBC 3.66 M/mm3 (3.60-5.2); RDW 15.3 % (11.6-15.6); WHITE BLOOD COUNT 4.4 K/mm3 (4.0-10.0)
[2024-01-08] MEDS ORDERED: oxyCODONE HCL 5 MG TABLET PO PRN ×2 (08:55→08:56)
[2024-01-08 08:58] LABS: POTASSIUM 4.7 mmol/L (3.5-5.1)
[2024-01-08 09:05] LABS: ALBUMIN 3.4 g/dl (3.4-5.0); BLOOD UREA NITROGEN 24.6 mg/dL (7-18); MAGNESIUM 2.1 mg/dL (1.8-2.4)
[2024-01-08 09:06] LABS: PHOSPHOROUS 3.6 mg/dL (2.5-4.9)
[2024-01-08 09:08] LABS: BILIRUBIN,TOTAL 0.3 mg/dL (0.2-1); CREATININE 1.3 mg/dL (0.55-1.3); TOT PROT 6.9 g/dl (6.4-8.2)
[2024-01-08] MEDS: POLYETHYLENE GLYCOL (HEALTHYLAX) 3350 17 GM PACKET PO SCH (09:14)
[2024-01-08] MEDS: ASCORBIC ACID 500 MG TABLET (FP) PO SCH (09:14)
[2024-01-08] MEDS: CYCLOBENZAPRINE HCL 5 MG TABLET PO SCH (10:24)
[2024-01-08] MEDS: INSULIN (LEVEMIR) 100 UNITS/ML UNITS SQ ONE (11:37)
[2024-01-08] MEDS: ACETAMINOPHEN 325 MG TABLET (FP) PO PRN (21:19)
[2024-01-08] MEDS: INSULIN (LEVEMIR) 100 UNITS/ML UNITS SQ SCH (21:20)
[2024-01-08] MEDS ORDERED: DEXTROSE 50%-WATER 25 GM/50 ML DISP.SYRIN IVPUSH PRN (23:28)
[2024-01-09] MEDS: FUROSEMIDE 40 MG/4 ML INJECTABLE VIAL IVPUSH SCH (06:14)
[2024-01-09] MEDS: ACETAMINOPHEN 325 MG TABLET (FP) PO ONE (20:52)
[2024-01-09] MEDS: ZOLPIDEM TARTRATE 5 MG TABLET PO PRN (21:30)
[2024-01-10] MEDS ORDERED: ACETAMINOPHEN 325 MG TABLET (FP) PO PRN (07:39)
[2024-01-10 08:51] LABS: HEMATOCRIT 35.6 % (32.4-45.2); HEMOGLOBIN 11.5 GM/dL (10.7-15.3); MCH 29.4 pg (25.7-33.7); MCHC 32.2 g/dl (32.0-36.0); MEAN CELL VOLUME 91.3 fl (80-96); MEAN PLT VOLUME 8.8 fl (7.5-11.1); PLATELET COUNT 245 10^3/uL (134-434); RDW 14.8 % (11.6-15.6); WHITE BLOOD COUNT 4.3 K/mm3 (4.0-10.0)
[2024-01-10 09:13] LABS: POTASSIUM 4.4 mmol/L (3.5-5.1)
[2024-01-10 09:21] LABS: ALBUMIN 3.8 g/dl (3.4-5.0); CALCIUM 10.2 mg/dL (8.5-10.1)
[2024-01-10 09:22] LABS: BLOOD UREA NITROGEN 26.7 mg/dL (7-18)
[2024-01-10 09:24] LABS: CREATININE 1.3 mg/dL (0.55-1.3)
[2024-01-10 09:26] LABS: BILIRUBIN,TOTAL 0.4 mg/dL (0.2-1)
[2024-01-10 12:50] VITALS: BP 141/70; PULSE 75; TEMP 97.9
== END 2024-01-10 13:11 | disposition home or self-care (01) | DRG 197 ==
LOC: JER 13:20 → JERBED 16:03 → UNDOADMIN 16:03 → JERBED 16:35 → J6S 18:11
PROVIDERS: ADMIT Internal Medicine; ATTEND Internal Medicine
DX: E11.51 Type 2 diabetes mellitus with diabetic peripheral angiopathy without gangrene (principal); L03.115 Cellulitis of right lower limb; L03.116 Cellulitis of left lower limb; I10 Essential (primary) hypertension; E11.649 Type 2 diabetes mellitus with hypoglycemia without coma; E78.5 Hyperlipidemia, unspecified; E11.622 Type 2 diabetes mellitus with other skin ulcer; L97.828 Non-pressure chronic ulcer of other part of left lower leg with other specified severity; L97.818 Non-pressure chronic ulcer of other part of right lower leg with other specified severity; M19.072 Primary osteoarthritis, left ankle and foot; M19.071 Primary osteoarthritis, right ankle and foot; Z86.718 Personal history of other venous thrombosis and embolism
CPT/HCPCS: 36415; 71046-TC-FY; 73610-TC-LT-FY; 73610-TC-RT-FY; 80053; 82962; 83036; 83735; 84100; 85025; 85027; 85610; 85730; 86803; 86850; 86900; 86901; 87040; 87070; 87186; 87205; 87389; 93005; 93010; 99285-25; G0463-25; J0131

== ENCOUNTER 2024-02-07 14:14 | Inpatient (IN) | payer OTHER ==
[2024-02-07 14:35] VITALS: BMI 39.1
[2024-02-07 16:52] LABS: BASO % 0.8 % (0-2.0); EOS % 2.8 % (0-4.5); HEMATOCRIT 31.9 % (32.4-45.2); HEMOGLOBIN 10.4 GM/dL (10.7-15.3); LYMPH % 19.5 % (8-40); MCH 29.3 pg (25.7-33.7); MCHC 32.5 g/dl (32.0-36.0); MEAN CELL VOLUME 90.1 fl (80-96); MEAN PLT VOLUME 8.6 fl (7.5-11.1); MONO % 11.7 % (3.8-10.2); NEUT % 65.2 % (42.8-82.8); PLATELET COUNT 189 10^3/uL (134-434); RBC 3.54 M/mm3 (3.60-5.2); RDW 15.7 % (11.6-15.6); WHITE BLOOD COUNT 6.3 K/mm3 (4.0-10.0)
[2024-02-07 17:11] LABS: POTASSIUM 4.6 mmol/L (3.5-5.1)
[2024-02-07 17:13] LABS: CALCIUM 8.7 mg/dL (8.5-10.1)
[2024-02-07 17:14] LABS: ALBUMIN 3.3 g/dl (3.4-5.0); BLOOD UREA NITROGEN 29.6 mg/dL (7-18); MAGNESIUM 2.5 mg/dL (1.8-2.4)
[2024-02-07 17:17] LABS: CREATININE 1.5 mg/dL (0.55-1.3); PHOSPHOROUS 4.5 mg/dL (2.5-4.9)
[2024-02-07 17:18] LABS: TOT PROT 7.3 g/dl (6.4-8.2)
[2024-02-07 17:19] LABS: BILIRUBIN,TOTAL 0.4 mg/dL (0.2-1)
[2024-02-07 17:32] LABS: ERYTHROCYTE SEDIMENTATION RATE 69 mm/hr (0-30)
[2024-02-07] MEDS ORDERED: ACETAMINOPHEN 325 MG TABLET (FP) ONE (17:49)
[2024-02-07] MEDS ORDERED: CEFTRIAXONE 1 GM/50 ML BAG ONE (17:49)
[2024-02-07] MEDS: ACETAMINOPHEN 325 MG TABLET (FP) PO ONE (17:57)
[2024-02-07] MEDS ORDERED: VANCOMYCIN 2,000 MG in DEXTROSE 5%-WATER - 250 ML IVPB ONE (17:58)
[2024-02-07] MEDS ORDERED: oxyCODONE HCL 5 MG TABLET ONE (18:10)
[2024-02-07] MEDS: CEFTRIAXONE 1,000 MG in DEXTROSE 5%-WATER - 50 ML IVPB ONE (18:20)
[2024-02-07] MEDS: oxyCODONE HCL 5 MG TABLET PO ONE (18:21)
[2024-02-07] MEDS: GABAPENTIN 300 MG CAPSULE PO SCH (23:15)
[2024-02-07] MEDS: VANCOMYCIN/WATER 2 GRAMS 2,000 MG/400 ML PIGGYBACK IVPB ONE (23:19)
[2024-02-07] MEDS ORDERED: DICLOFENAC SODIUM 25 MG TABLET.DR PO SCH (23:32)
[2024-02-07] MEDS: DICLOFENAC SODIUM 25 MG TABLET.DR PO SCH (23:44)
[2024-02-08] MEDS: BACLOFEN 10 MG TABLET (FP) PO ONE (01:32)
[2024-02-08] MEDS: ACETAMINOPHEN 500 MG TABLET (FP) PO PRN (01:38)
[2024-02-08] MEDS ORDERED: PATIENT'S OWN MEDICATION (NON-FORMULARY) (Tizanidine Hcl [Tizanidine Hcl] 2 MG Tablet) PO PRN (02:09)
[2024-02-08] MEDS ORDERED: PATIENT'S OWN MEDICATION (NON-FORMULARY) (Meloxicam [Meloxicam] 15 MG Tablet) PO PRN (02:09)
[2024-02-08] MEDS ORDERED: PATIENT'S OWN MEDICATION (NON-FORMULARY) (Oxycodone Hcl/Acetaminophen [Endocet 10-325 Mg T PO SCH (02:15)
[2024-02-08] MEDS: PATIENT'S OWN MEDICATION (NON-FORMULARY) (Oxycodone Hcl/Acetaminophen [Oxycodone-Acetamino PO SCH (04:19)
[2024-02-08] MEDS: oxyCODONE HCL 5 MG TABLET PO ONE (04:41)
[2024-02-08] MEDS: HYDROmorphone HCl 2 MG/ML VIAL IVPUSH ONE (04:52)
[2024-02-08] MEDS: ACETAMINOPHEN 325 MG TABLET (FP) PO ONE (04:52)
[2024-02-08] MEDS ORDERED: hydrOXYzine PAMOATE 25 MG CAPSULE (FP) PO ONE ×3 (05:20→21:28)
[2024-02-08] MEDS: hydrOXYzine PAMOATE 50 MG CAPSULE (FP) PO SCH (05:24)
[2024-02-08] MEDS: INSULIN (LEVEMIR) 100 UNITS/ML UNITS SQ ONE (05:57)
[2024-02-08] MEDS: INSULIN ASPART SLIDING SCALE (NOVOLOG) 1 VIAL SQ SCH (06:00)
[2024-02-08] MEDS ORDERED: INSULIN ASPART SLIDING SCALE (NOVOLOG) 1 VIAL SQ SCH (07:00)
[2024-02-08] MEDS: CEFTRIAXONE 1 GM in DEXTROSE 5%-WATER - 50 ML IVPB SCH (09:43)
[2024-02-08 09:58] LABS: HEMATOCRIT 30.6 % (32.4-45.2); HEMOGLOBIN 9.7 GM/dL (10.7-15.3); MCH 29.3 pg (25.7-33.7); MCHC 31.8 g/dl (32.0-36.0); MEAN CELL VOLUME 92.4 fl (80-96); MEAN PLT VOLUME 8.5 fl (7.5-11.1); PLATELET COUNT 169 10^3/uL (134-434); RBC 3.32 M/mm3 (3.60-5.2); RDW 15.6 % (11.6-15.6); WHITE BLOOD COUNT 5.6 K/mm3 (4.0-10.0)
[2024-02-08] MEDS ORDERED: PATIENT'S OWN MEDICATION (NON-FORMULARY) (Zolpidem Tartrate [Ambien] 10 MG Tablet) PO SCH (10:00)
[2024-02-08] MEDS ORDERED: DICLOFENAC SODIUM 25 MG TABLET.DR PO SCH ×2 (10:00→23:45)
[2024-02-08] MEDS: BISACODYL 5 MG TABLET.DR (FP) PO SCH (10:02)
[2024-02-08] MEDS: POLYETHYLENE GLYCOL (HEALTHYLAX) 3350 17 GM PACKET PO SCH (10:02)
[2024-02-08] MEDS: FUROSEMIDE 40 MG TABLET (FP) PO SCH (10:02)
[2024-02-08] MEDS: MAGNESIUM OXIDE 400 MG TABLET (FP) PO SCH (10:02)
[2024-02-08 10:13] LABS: POTASSIUM 4.5 mmol/L (3.5-5.1)
[2024-02-08 10:16] LABS: CALCIUM 8.3 mg/dL (8.5-10.1)
[2024-02-08 10:17] LABS: ALBUMIN 3.1 g/dl (3.4-5.0); BLOOD UREA NITROGEN 24.6 mg/dL (7-18); MAGNESIUM 2.4 mg/dL (1.8-2.4)
[2024-02-08 10:19] LABS: CREATININE 1.3 mg/dL (0.55-1.3)
[2024-02-08 10:20] LABS: PHOSPHOROUS 3.6 mg/dL (2.5-4.9)
[2024-02-08 10:21] LABS: BILIRUBIN,TOTAL 0.3 mg/dL (0.2-1); TOT PROT 6.5 g/dl (6.4-8.2)
[2024-02-08] MEDS: morphine SULFATE 4 MG/ML VIAL IVPUSH PRN (11:25)
[2024-02-08] MEDS: PIPERACILLIN/TAZOB 4.5 GM 4.5 GM in DEXTROSE 5%-WATER 100 ML IVPB SCH (18:17)
[2024-02-08] MEDS: ATORVASTATIN CA 40 MG TABLET (FP) PO SCH (21:31)
[2024-02-08] MEDS: APIXABAN 2.5 MG TABLET PO SCH (21:31)
[2024-02-09] MEDS: INSULIN (LEVEMIR) 100 UNITS/ML UNITS SQ SCH (06:36)
[2024-02-09] MEDS ORDERED: hydrOXYzine PAMOATE 25 MG CAPSULE (FP) PO ONE ×3 (06:49→21:05)
[2024-02-09 10:55] LABS: BASO % 0.6 % (0-2.0); EOS % 3.8 % (0-4.5); HEMATOCRIT 30.8 % (32.4-45.2); HEMOGLOBIN 10.1 GM/dL (10.7-15.3); LYMPH % 25.9 % (8-40); MCH 29.3 pg (25.7-33.7); MCHC 32.7 g/dl (32.0-36.0); MEAN CELL VOLUME 89.6 fl (80-96); MEAN PLT VOLUME 8.5 fl (7.5-11.1); NEUT % 60.7 % (42.8-82.8); PLATELET COUNT 202 10^3/uL (134-434); RBC 3.44 M/mm3 (3.60-5.2); RDW 15.4 % (11.6-15.6); WHITE BLOOD COUNT 3.7 K/mm3 (4.0-10.0)
[2024-02-09 11:24] LABS: POTASSIUM 4.3 mmol/L (3.5-5.1)
[2024-02-09 11:31] LABS: CALCIUM 9.4 mg/dL (8.5-10.1)
[2024-02-09 11:32] LABS: BLOOD UREA NITROGEN 19.2 mg/dL (7-18)
[2024-02-09 11:35] LABS: CREATININE 1.1 mg/dL (0.55-1.3)
[2024-02-09] MEDS: ZOLPIDEM TARTRATE 5 MG TABLET PO PRN (21:22)
[2024-02-10] MEDS ORDERED: hydrOXYzine PAMOATE 25 MG CAPSULE (FP) PO ONE ×3 (05:55→21:01)
[2024-02-10 12:18] LABS: BILIRUBIN,TOTAL 0.3 mg/dL (0.2-1); BLOOD UREA NITROGEN 16.9 mg/dL (7-18); CREATININE 1.2 mg/dL (0.55-1.3); POTASSIUM 4.7 mmol/L (3.5-5.1); TOT PROT 7.1 g/dl (6.4-8.2)
[2024-02-10] MEDS ORDERED: ACETAMINOPHEN 500 MG TABLET (FP) PO PRN (12:32)
[2024-02-10 12:58] LABS: BASO % 0.6 % (0-2.0); EOS % 4.5 % (0-4.5); HEMATOCRIT 35.2 % (32.4-45.2); LYMPH % 24.5 % (8-40); MCH 28.7 pg (25.7-33.7); MCHC 31.4 g/dl (32.0-36.0); MEAN CELL VOLUME 91.5 fl (80-96); MEAN PLT VOLUME 8.1 fl (7.5-11.1); MONO % 7.7 % (3.8-10.2); NEUT % 62.7 % (42.8-82.8); PLATELET COUNT 213 10^3/uL (134-434); RBC 3.85 M/mm3 (3.60-5.2); RDW 15.2 % (11.6-15.6)
[2024-02-10] MEDS: traMADol HCL 50 MG TABLET PO PRN (14:41)
[2024-02-10] MEDS: GABAPENTIN 400 MG CAPSULE PO SCH (14:48)
[2024-02-11] MEDS ORDERED: hydrOXYzine PAMOATE 25 MG CAPSULE (FP) PO ONE ×2 (06:00→21:28)
[2024-02-11 10:24] LABS: BASO % 0.7 % (0-2.0); EOS % 3.8 % (0-4.5); HEMATOCRIT 33.3 % (32.4-45.2); HEMOGLOBIN 10.8 GM/dL (10.7-15.3); LYMPH % 17.4 % (8-40); MCHC 32.2 g/dl (32.0-36.0); MEAN CELL VOLUME 89.8 fl (80-96); MEAN PLT VOLUME 8.2 fl (7.5-11.1); NEUT % 71.1 % (42.8-82.8); PLATELET COUNT 239 10^3/uL (134-434); RBC 3.71 M/mm3 (3.60-5.2); RDW 15.1 % (11.6-15.6); WHITE BLOOD COUNT 3.9 K/mm3 (4.0-10.0)
[2024-02-11 10:30] LABS: INR 1.48 (0.83-1.09); PROTHROMBIN TIME (PATIENT) 16.8 SEC (9.7-13.0)
[2024-02-11 10:32] LABS: ACTIVATED PTT 35.6 SECONDS (25.2-36.5)
[2024-02-11 10:42] LABS: POTASSIUM 4.4 mmol/L (3.5-5.1)
[2024-02-11 10:45] LABS: ALBUMIN 3.4 g/dl (3.4-5.0); BLOOD UREA NITROGEN 16.9 mg/dL (7-18); CALCIUM 9.6 mg/dL (8.5-10.1)
[2024-02-11 10:48] LABS: CREATININE 1.1 mg/dL (0.55-1.3)
[2024-02-11 10:50] LABS: BILIRUBIN,TOTAL 0.4 mg/dL (0.2-1); TOT PROT 7.6 g/dl (6.4-8.2)
[2024-02-11] MEDS ORDERED: MIDAZOLAM HCL 2 MG/2 ML SINGLE DOSE VIAL ONE (13:18)
[2024-02-11] MEDS ORDERED: ONDANSETRON 4 MG/2 ML VIAL IVPUSH PRN ×2 (13:38→16:11)
[2024-02-11] MEDS ORDERED: LACTATED RINGERS SOLUTION 1,000 ML IV SCH (13:45)
[2024-02-11] MEDS ORDERED: DEXAMETHASONE SOD PHOSPHATE 4 MG/1 ML VIAL ONE (13:53)
[2024-02-11] MEDS ORDERED: BUPIVACAINE HCL/PF 0.5% (5MG/ML) 10 ML VIAL ONE (14:02)
[2024-02-11] MEDS ORDERED: LIDOCAINE HCL 1%, 10 MG/ML (20ML VIAL) ONE (14:02)
[2024-02-11] MEDS ORDERED: GENTAMICIN SO4 80 MG/2 ML VIAL ONE (14:02)
[2024-02-11] MEDS ORDERED: ACETAMINOPHEN 500 MG TABLET (FP) PO PRN (16:11)
[2024-02-11] MEDS ORDERED: PATIENT'S OWN MEDICATION (NON-FORMULARY) (Meloxicam [Meloxicam] 15 MG) PO PRN (16:11)
[2024-02-11] MEDS ORDERED: PATIENT'S OWN MEDICATION (NON-FORMULARY) (Tizanidine Hcl [Tizanidine Hcl] 2 MG) PO PRN (16:11)
[2024-02-11] MEDS: INSULIN ASPART SLIDING SCALE (NOVOLOG) 1 VIAL SQ SCH (17:41)
[2024-02-11] MEDS: morphine SULFATE 4 MG/ML VIAL IVPUSH PRN (17:42)
[2024-02-11] MEDS: PIPERACILLIN/TAZOB 4.5 GM 4.5 GM in DEXTROSE 5%-WATER 100 ML IVPB SCH (20:17)
[2024-02-11] MEDS: MAGNESIUM OXIDE 400 MG TABLET (FP) PO SCH (21:29)
[2024-02-11] MEDS: ATORVASTATIN CA 40 MG TABLET (FP) PO SCH (21:29)
[2024-02-11] MEDS: APIXABAN 2.5 MG TABLET PO SCH (21:29)
[2024-02-11] MEDS: GABAPENTIN 400 MG CAPSULE PO SCH (21:30)
[2024-02-11] MEDS: hydrOXYzine PAMOATE 50 MG CAPSULE (FP) PO SCH (21:30)
[2024-02-12] MEDS: traMADol HCL 50 MG TABLET PO PRN (01:23)
[2024-02-12] MEDS ORDERED: hydrOXYzine PAMOATE 25 MG CAPSULE (FP) PO ONE ×3 (05:58→21:32)
[2024-02-12] MEDS: INSULIN (LEVEMIR) 100 UNITS/ML UNITS SQ SCH (06:19)
[2024-02-12 09:33] LABS: BASO % 0.5 % (0-2.0); EOS % 0.3 % (0-4.5); HEMATOCRIT 35.6 % (32.4-45.2); HEMOGLOBIN 11.6 GM/dL (10.7-15.3); LYMPH % 18.2 % (8-40); MCH 29.2 pg (25.7-33.7); MCHC 32.5 g/dl (32.0-36.0); MEAN CELL VOLUME 89.7 fl (80-96); MEAN PLT VOLUME 8.4 fl (7.5-11.1); MONO % 6.5 % (3.8-10.2); NEUT % 74.5 % (42.8-82.8); PLATELET COUNT 292 10^3/uL (134-434); RBC 3.97 M/mm3 (3.60-5.2); RDW 15.3 % (11.6-15.6)
[2024-02-12 10:01] LABS: POTASSIUM 4.3 mmol/L (3.5-5.1)
[2024-02-12 10:07] LABS: ALBUMIN 3.5 g/dl (3.4-5.0); BLOOD UREA NITROGEN 26.5 mg/dL (7-18); CALCIUM 9.9 mg/dL (8.5-10.1)
[2024-02-12 10:10] LABS: CREATININE 1.5 mg/dL (0.55-1.3)
[2024-02-12 10:12] LABS: BILIRUBIN,TOTAL 0.4 mg/dL (0.2-1); TOT PROT 8.2 g/dl (6.4-8.2)
[2024-02-12] MEDS ORDERED: PIPERACILLIN/TAZOBACTAM 4.5 GM VIAL IVPB ONE (10:50)
[2024-02-12] MEDS: POLYETHYLENE GLYCOL (HEALTHYLAX) 3350 17 GM PACKET PO SCH (10:53)
[2024-02-12] MEDS: BISACODYL 5 MG TABLET.DR (FP) PO SCH (10:53)
[2024-02-12] MEDS: FUROSEMIDE 40 MG TABLET (FP) PO SCH (10:53)
[2024-02-12] MEDS ORDERED: INSULIN ASPART SLIDING SCALE (NOVOLOG) 1 VIAL SQ ONE (11:22)
[2024-02-12] MEDS: PIPERACILLIN/TAZOB 4.5 GM 4.5 GM/100 ML BAG IVPB SCH (11:33)
[2024-02-12] MEDS ORDERED: SODIUM CHLORIDE 500 ML IV SCH (19:15)
[2024-02-12] MEDS ORDERED: INSULIN (LEVEMIR) 100 UNITS/ML UNITS SQ SCH (19:27)
[2024-02-12] MEDS: HYDROmorphone *PCA* 10MG/50ML DISP.SYRIN PCA SCH (19:57)
[2024-02-13] MEDS ORDERED: hydrOXYzine PAMOATE 25 MG CAPSULE (FP) PO ONE ×3 (05:21→21:03)
[2024-02-13] MEDS: INSULIN (LEVEMIR) 100 UNITS/ML UNITS SQ SCH ×2 (06:06→06:07)
[2024-02-13] MEDS ORDERED: INSULIN ASPART SLIDING SCALE (NOVOLOG) 1 VIAL SQ ONE ×2 (07:36→11:29)
[2024-02-13 12:28] LABS: POTASSIUM 4.2 mmol/L (3.5-5.1)
[2024-02-13 12:32] LABS: BLOOD UREA NITROGEN 27.4 mg/dL (7-18); CALCIUM 9.2 mg/dL (8.5-10.1)
[2024-02-13 12:35] LABS: CREATININE 1.3 mg/dL (0.55-1.3)
[2024-02-13 12:36] LABS: BILIRUBIN,TOTAL 0.3 mg/dL (0.2-1)
[2024-02-13 12:37] LABS: TOT PROT 6.7 g/dl (6.4-8.2)
[2024-02-14] MEDS ORDERED: hydrOXYzine PAMOATE 25 MG CAPSULE (FP) PO ONE ×3 (05:11→21:45)
[2024-02-14] MEDS: INSULIN (NOVOLOG) ASPART 100 UNITS/ML 10ML VIAL SQ SCH (06:34)
[2024-02-14 11:44] LABS: POTASSIUM 3.8 mmol/L (3.5-5.1)
[2024-02-14 11:53] LABS: ALBUMIN 3.1 g/dl (3.4-5.0); BLOOD UREA NITROGEN 23.3 mg/dL (7-18)
[2024-02-14 11:56] LABS: CREATININE 1.3 mg/dL (0.55-1.3)
[2024-02-14 11:57] LABS: BILIRUBIN,TOTAL 0.4 mg/dL (0.2-1); TOT PROT 7.2 g/dl (6.4-8.2)
[2024-02-14] MEDS: ZOLPIDEM TARTRATE 5 MG TABLET PO PRN (21:54)
[2024-02-15] MEDS: hydrOXYzine PAMOATE 25 MG CAPSULE (FP) PO SCH (05:56)
[2024-02-15] MEDS: INSULIN (LEVEMIR) 100 UNITS/ML UNITS SQ SCH (06:16)
[2024-02-15] MEDS: AMOX TR/POT CLAV 500MG/125MG TABLETS (FP) PO SCH (08:21)
[2024-02-15] MEDS ORDERED: IBUPROFEN 600 MG TABLET (FP) PO PRN (17:58)
[2024-02-15] MEDS ORDERED: BACLOFEN 10 MG TABLET (FP) PO PRN (17:59)
[2024-02-15] MEDS ORDERED: MAGNESIUM OXIDE 400 MG TABLET (FP) PO PRN (18:03)
[2024-02-15] MEDS: ACETAMINOPHEN 500 MG TABLET (FP) PO SCH (19:32)
[2024-02-16 09:53] LABS: BASO % 0.8 % (0-2.0); EOS % 3.5 % (0-4.5); HEMATOCRIT 32.4 % (32.4-45.2); HEMOGLOBIN 10.7 GM/dL (10.7-15.3); LYMPH % 23.8 % (8-40); MCH 29.6 pg (25.7-33.7); MEAN CELL VOLUME 89.5 fl (80-96); MEAN PLT VOLUME 8.5 fl (7.5-11.1); MONO % 8.1 % (3.8-10.2); NEUT % 63.8 % (42.8-82.8); PLATELET COUNT 254 10^3/uL (134-434); RBC 3.62 M/mm3 (3.60-5.2); RDW 15.2 % (11.6-15.6)
[2024-02-16 10:14] LABS: POTASSIUM 3.8 mmol/L (3.5-5.1)
[2024-02-16 10:17] LABS: CALCIUM 9.8 mg/dL (8.5-10.1)
[2024-02-16 10:18] LABS: ALBUMIN 3.2 g/dl (3.4-5.0); BLOOD UREA NITROGEN 27.1 mg/dL (7-18)
[2024-02-16 10:21] LABS: CREATININE 1.2 mg/dL (0.55-1.3)
[2024-02-16 10:23] LABS: BILIRUBIN,TOTAL 0.3 mg/dL (0.2-1)
[2024-02-17] MEDS: INSULIN (LEVEMIR) 100 UNITS/ML UNITS SQ ONE (08:36)
[2024-02-17] MEDS: oxyCODONE HCL 5 MG TABLET PO SCH (15:23)
[2024-02-17] MEDS: oxyCODONE HCL 5 MG TABLET PO PRN (20:14)
[2024-02-17 20:46] VITALS: RESP 18
[2024-02-17] MEDS: PNEUMOC 20-VAL CONJ-DIP CRM/PF 0.5 ML SYRINGE IM ONE (22:40)
[2024-02-18] MEDS: INSULIN (LEVEMIR) 100 UNITS/ML UNITS SQ SCH (06:48)
[2024-02-18 10:52] LABS: HEMATOCRIT 34.1 % (32.4-45.2); HEMOGLOBIN 11.1 GM/dL (10.7-15.3); MCH 29.2 pg (25.7-33.7); MCHC 32.6 g/dl (32.0-36.0); MEAN CELL VOLUME 89.6 fl (80-96); MEAN PLT VOLUME 8.8 fl (7.5-11.1); PLATELET COUNT 237 10^3/uL (134-434); RDW 15.2 % (11.6-15.6); WHITE BLOOD COUNT 4.7 K/mm3 (4.0-10.0)
[2024-02-18 11:19] LABS: POTASSIUM 3.9 mmol/L (3.5-5.1)
[2024-02-18 11:20] LABS: CALCIUM 9.5 mg/dL (8.5-10.1)
[2024-02-18 11:21] LABS: BLOOD UREA NITROGEN 19.6 mg/dL (7-18); MAGNESIUM 1.9 mg/dL (1.8-2.4)
[2024-02-18 11:24] LABS: CREATININE 1.2 mg/dL (0.55-1.3)
[2024-02-18 11:26] LABS: PHOSPHOROUS 3.2 mg/dL (2.5-4.9)
[2024-02-18] MEDS ORDERED: INSULIN ASPART SLIDING SCALE (NOVOLOG) 1 VIAL SQ ONE (11:52)
[2024-02-18] MEDS: FLU VACCINE (FLULAVAL) PF 45 MCG/0.5 ML SYRINGE 2024-2025 IM ONE (14:28)
[2024-02-18] MEDS ORDERED: NYSTATIN POWDER 100,000 UNITS/GM - 15 GM TOPICAL POWDER TP ONE (15:05)
[2024-02-18 16:29] VITALS: BP 137/68; PULSE 55; TEMP 98.2
== END 2024-02-18 16:00 | disposition home or self-care (01) | DRG 180 ==
LOC: JER 14:14 → JERBED 18:50 → J6S 20:24
PROVIDERS: ADMIT Internal Medicine; ATTEND Internal Medicine
PROC: 0JBQ0ZZ Excision of Right Foot Subcutaneous Tissue and Fascia, Open Approach (ICD-10-PCS; 2024-02-11)
PROC: 0HRNXJZ Replacement of Left Foot Skin with Synthetic Substitute, External Approach (ICD-10-PCS; 2024-02-11)
PROC: 0HRMXJZ Replacement of Right Foot Skin with Synthetic Substitute, External Approach (ICD-10-PCS; 2024-02-11)
PROC: 05HF33Z Insertion of Infusion Device into Left Cephalic Vein, Percutaneous Approach (ICD-10-PCS; 2024-02-11)
PROC: B54NZZA Ultrasonography of Left Upper Extremity Veins, Guidance (ICD-10-PCS; 2024-02-11)
PROC: 0JBR0ZZ Excision of Left Foot Subcutaneous Tissue and Fascia, Open Approach (ICD-10-PCS; principal; 2024-02-11 13:15)
DX: E11.51 Type 2 diabetes mellitus with diabetic peripheral angiopathy without gangrene (principal); E11.52 Type 2 diabetes mellitus with diabetic peripheral angiopathy with gangrene; I96 Gangrene, not elsewhere classified; K21.9 Gastro-esophageal reflux disease without esophagitis; E11.42 Type 2 diabetes mellitus with diabetic polyneuropathy; K76.0 Fatty (change of) liver, not elsewhere classified; E11.65 Type 2 diabetes mellitus with hyperglycemia; I10 Essential (primary) hypertension; R00.1 Bradycardia, unspecified; L03.116 Cellulitis of left lower limb; L03.115 Cellulitis of right lower limb; B96.5 Pseudomonas (aeruginosa) (mallei) (pseudomallei) as the cause of diseases classified elsewhere; B95.2 Enterococcus as the cause of diseases classified elsewhere; B96.1 Klebsiella pneumoniae [K. pneumoniae] as the cause of diseases classified elsewhere; E78.5 Hyperlipidemia, unspecified; K59.00 Constipation, unspecified; F41.8 Other specified anxiety disorders; F11.20 Opioid dependence, uncomplicated; I83.018 Varicose veins of right lower extremity with ulcer other part of lower leg; I83.028 Varicose veins of left lower extremity with ulcer other part of lower leg; L97.818 Non-pressure chronic ulcer of other part of right lower leg with other specified severity; L97.828 Non-pressure chronic ulcer of other part of left lower leg with other specified severity; E66.9 Obesity, unspecified; Z68.39 Body mass index [BMI] 39.0-39.9, adult
CPT/HCPCS: 36415; 73590-TC-LT-FY; 73590-TC-RT-FY; 73610-TC-LT-FY; 73610-TC-RT-FY; 73630-TC-LT; 73630-TC-RT-FY; 80048; 80053; 82962; 83036; 83735; 84100; 85025; 85027; 85610; 85651; 85730; 86140; 87040; 87070; 87081; 87186; 87205; 90656; 93005; 93010; 94760; 99285-25; G0008; J0475

== ENCOUNTER 2024-04-09 12:31 | Observation (INO) | payer OTHER ==
[2024-04-09 14:46] LABS: INR 1.51 (0.83-1.09); PROTHROMBIN TIME (PATIENT) 17.2 SEC (9.7-13.0)
[2024-04-09 14:48] LABS: ACTIVATED PTT 35.8 SECONDS (25.2-36.5)
[2024-04-09 15:11] LABS: ALBUMIN 3.4 g/dl (3.4-5.0); BLOOD UREA NITROGEN 34.6 mg/dL (7-18)
[2024-04-09 15:13] LABS: CALCIUM 8.7 mg/dL (8.5-10.1)
[2024-04-09 15:14] LABS: CREATININE 1.4 mg/dL (0.55-1.3)
[2024-04-09 15:15] LABS: BILIRUBIN,TOTAL 0.4 mg/dL (0.2-1); TOT PROT 7.4 g/dl (6.4-8.2)
[2024-04-09] MEDS ORDERED: VANCOMYCIN HCL 1,500 MG in DEXTROSE 5%-WATER - 500 ML IVPB ONE (15:31)
[2024-04-09] MEDS ORDERED: morphine SULFATE 4 MG/ML VIAL ONE (15:41)
[2024-04-09] MEDS ORDERED: PIPERACILLIN/TAZOB 4.5 GM 4.5 GM/100 ML BAG IVPB ONE (15:41)
[2024-04-09] MEDS: morphine CARPU-JECT 4 MG/1 ML DISP.SYRIN IVPUSH ONE (15:52)
[2024-04-09] MEDS: PIPERACILLIN/TAZOB 4.5 GM 4.5 GM in DEXTROSE 5%-WATER 100 ML IVPB ONE (15:53)
[2024-04-09] MEDS: VANCOMYCIN PREMIX 1.5 GM 1,500 MG/300 ML BAG IVPB ONE (17:16)
[2024-04-09 18:35] VITALS: RESP 18
[2024-04-09] MEDS: GABAPENTIN 400 MG CAPSULE PO SCH (18:42)
[2024-04-09] MEDS: HYDROmorphone HCL CARPU-JECT 2 MG/1 ML DISP.SYRIN IVPB PRN (18:42)
[2024-04-09] MEDS: SODIUM CHLORIDE 1,000 ML IV SCH (22:25)
[2024-04-10] MEDS: INSULIN ASPART SLIDING SCALE (NOVOLOG) 1 VIAL SQ SCH (01:29)
[2024-04-10] MEDS: ACETAMINOPHEN 1000 MG/100 ML BAG IVPB PRN (05:10)
[2024-04-10] MEDS ORDERED: PATIENT'S OWN MEDICATION (NON-FORMULARY) (Tizanidine Hcl [Tizanidine Hcl] 2 MG Tablet) PO PRN (05:26)
[2024-04-10] MEDS ORDERED: oxyCODONE HCL 5 MG TABLET PO PRN (08:04)
[2024-04-10] MEDS ORDERED: ZOLPIDEM TARTRATE 5 MG TABLET PO PRN (08:05)
[2024-04-10] MEDS: oxyCODONE HCL 5 MG TABLET PO PRN (09:23)
[2024-04-10] MEDS: LOSARTAN POTASSIUM 25 MG TABLET PO SCH (09:25)
[2024-04-10] MEDS: ATORVASTATIN CA 10 MG TABLET (FP) PO SCH (09:25)
[2024-04-10] MEDS: ASCORBIC ACID 500 MG TABLET (FP) PO SCH (09:25)
[2024-04-10] MEDS: FUROSEMIDE 40 MG TABLET (FP) PO SCH (09:26)
[2024-04-10] MEDS: APIXABAN 2.5 MG TABLET PO SCH (09:26)
[2024-04-10 09:39] LABS: HEMATOCRIT 34.1 % (32.4-45.2); HEMOGLOBIN 10.7 GM/dL (10.7-15.3); MCHC 31.4 g/dl (32.0-36.0); MEAN CELL VOLUME 92.3 fl (80-96); MEAN PLT VOLUME 10.2 fl (7.5-11.1); PLATELET COUNT 150 10^3/uL (134-434); RBC 3.69 M/mm3 (3.60-5.2); RDW 16.3 % (11.6-15.6); WHITE BLOOD COUNT 4.4 K/mm3 (4.0-10.0)
[2024-04-10 09:46] VITALS: BP 120/55; PULSE 57; TEMP 97.2
[2024-04-10 10:01] LABS: POTASSIUM 4.4 mmol/L (3.5-5.1)
[2024-04-10 10:12] LABS: ALBUMIN 3.1 g/dl (3.4-5.0); BLOOD UREA NITROGEN 26.2 mg/dL (7-18); CALCIUM 8.4 mg/dL (8.5-10.1); MAGNESIUM 2.6 mg/dL (1.8-2.4)
[2024-04-10 10:16] LABS: CREATININE 1.1 mg/dL (0.55-1.3); PHOSPHOROUS 3.3 mg/dL (2.5-4.9)
[2024-04-10 10:17] LABS: BILIRUBIN,TOTAL 0.4 mg/dL (0.2-1); TOT PROT 6.6 g/dl (6.4-8.2)
[2024-04-10] MEDS: GABAPENTIN 400 MG CAPSULE PO SCH (10:51)
[2024-04-10] MEDS: NAPROXEN 250 MG TABLET PO SCH (10:56)
[2024-04-10] MEDS: EMPAGLIFLOZIN (JARDIANCE) 10 MG TABLET PO SCH (10:57)
[2024-04-10] MEDS: ACETAMINOPHEN 500 MG TABLET (FP) PO SCH (10:57)
[2024-04-10 14:22] VITALS: BMI 38.0
[2024-04-10] MEDS: GABAPENTIN 300 MG CAPSULE PO SCH (14:23)
[2024-04-10] MEDS ORDERED: MIRTAZAPINE 15 MG TABLET (FP) PO SCH (22:00)
== END 2024-04-10 16:33 | disposition home or self-care (01) ==
LOC: JER 12:31 → INTOOBSV 16:38 → JERBED 16:38 → UNDOADMOB 16:38 → JERBED 18:03 → J5S 18:03 → JERBED 04-10 09:23
PROVIDERS: ATTEND Internal Medicine
PROC: 3E03329 Introduction of Other Anti-infective into Peripheral Vein, Percutaneous Approach (ICD-10-PCS; principal; 2024-04-10)
PROC: 3E033NZ Introduction of Analgesics, Hypnotics, Sedatives into Peripheral Vein, Percutaneous Approach (ICD-10-PCS; 2024-04-10)
PROC: 3E0337Z Introduction of Electrolytic and Water Balance Substance into Peripheral Vein, Percutaneous Approach (ICD-10-PCS; 2024-04-10)
DX: I87.313 Chronic venous hypertension (idiopathic) with ulcer of bilateral lower extremity (principal); L97.829 Non-pressure chronic ulcer of other part of left lower leg with unspecified severity; L97.819 Non-pressure chronic ulcer of other part of right lower leg with unspecified severity; I11.0 Hypertensive heart disease with heart failure; I50.9 Heart failure, unspecified; E11.40 Type 2 diabetes mellitus with diabetic neuropathy, unspecified; E78.5 Hyperlipidemia, unspecified; K76.0 Fatty (change of) liver, not elsewhere classified; K21.9 Gastro-esophageal reflux disease without esophagitis; R60.0 Localized edema; N17.9 Acute kidney failure, unspecified; Z86.711 Personal history of pulmonary embolism; Z86.718 Personal history of other venous thrombosis and embolism; Z79.4 Long term (current) use of insulin; Z88.8 Allergy status to other drugs, medicaments and biological substances; Z91.013 Allergy to seafood; Z79.01 Long term (current) use of anticoagulants
CPT/HCPCS: 36415; 73590-TC-LT-FY; 73590-TC-RT-FY; 80053; 82962; 83735; 84100; 84484; 85027; 85610; 85730; 86140; 86850; 86900; 86901; 93005; 93010; 96365; 96367; 96375; 97116-GP; 97161-GP; 99285-25; G0378; J0131

== ENCOUNTER 2024-12-09 18:10 | Inpatient (IN) | payer MEDICARE, OTHER ==
[2024-12-09 19:07] LABS: ABSOLUTE IMMATURE GRANULOCYTES 0.04 x10^3/uL (0.0-0.031); BASOPHILS # 0.02 x10^3/uL (0.01-0.08); EOSINOPHIL % 0.7 % (0.7-5.8); EOSINOPHILS # 0.05 x10^3/uL (0.04-0.36); MCHC 30.5 g/dl (32.2-35.5); MEAN CELL VOLUME 94.0 fl (79.4-94.8); MEAN PLT VOLUME 11.3 fl (9.4-12.3); MONOCYTE # 0.51 x10^3/uL (0.24-0.86); MONOCYTE % 6.9 % (4.7-12.5); RDW 14.7 % (12.4-16.4)
[2024-12-09] MEDS: SODIUM CHLORIDE 1,000 ML IV SCH (19:11)
[2024-12-09 19:20] LABS: INR 1.55 (0.83-1.09); PROTHROMBIN TIME (PATIENT) 16.9 SEC (9.7-13.0)
[2024-12-09 19:22] LABS: ACTIVATED PTT 29.4 SECONDS (25.2-36.5)
[2024-12-09] MEDS ORDERED: ACETAMINOPHEN INJECTION 100 ML ONE (19:38)
[2024-12-09] MEDS: ACETAMINOPHEN 1000 MG/100 ML BAG IVPB ONE (19:41)
[2024-12-09 19:58] LABS: GLUCOSE,RANDOM 102 mg/dL (74-106)
[2024-12-09 19:59] LABS: TOT PROT 7.6 g/dl (6.4-8.2)
[2024-12-09 20:00] LABS: CO2 28 mmol/L (21-32)
[2024-12-09 20:01] LABS: ALK PHOS 109 U/L (40-150)
[2024-12-09 20:04] LABS: CREATININE 0.99 mg/dL (0.55-1.3); LDL CHOLESTEROL (ONLY SJRH) 99 mg/dL (5-100); SGOT/AST 22 U/L (5-34); SGPT/ALT 14 U/L (0-55)
[2024-12-09 20:26] LABS: BG HCT 40.0 % (32.4-45.2); VENOUS BASE EXCESS 1.0 mmol/L (-2-2); VENOUS O2 SATURATION 32.7 % (70-80); VENOUS PCO2 54.1 mmHg (38-52); VENOUS PH 7.331 (7.310-7.410)
[2024-12-09] MEDS: PIPERACILLIN/TAZOB 3.375 GM 3.375 GM in DEXTROSE 5%-WATER - 50 ML IVPB ONE (20:30)
[2024-12-09] MEDS ORDERED: PIPERACILLIN/TAZOB 3.375 GM 3.375 GM/50 ML BAG IVPB ONE (20:36)
[2024-12-09] MEDS: VANCOMYCIN PREMIX 1.5 GM 1,500 MG/300 ML BAG IVPB ONE (21:20)
[2024-12-09] MEDS: VANCOMYCIN HCL 1,500 MG in DEXTROSE 5%-WATER - 500 ML IVPB ONE (21:20)
[2024-12-09 23:09] LABS: ARTERIAL BLD GAS O2 SATURATION 95.3 % (95-98); ARTERIAL BLOOD GAS BASE EXCESS 1.7 mmol/L (-2-2); ARTERIAL BLOOD GAS PCO2 45.30 mmHg (35-45); ARTERIAL BLOOD GAS PO2 77.2 mmHg (80-100); BG HCT 35.0 % (32.4-45.2); O2 CONTENT 1.60 % vol
[2024-12-09 23:10] LABS: ALLENS TEST POSITIVE
[2024-12-09 23:55] LABS: URINE APPEARANCE CLEAR; URINE BILIRUBIN NEGATIVE (NEGATIVE); URINE COLOR YELLOW; URINE GLUCOSE (UA) NEGATIVE (NEGATIVE); URINE KETONE NEGATIVE (NEGATIVE); URINE LEUK ESTERASE NEGATIVE (NEGATIVE); URINE NITRITE NEGATIVE (NEGATIVE); URINE PROTEIN NEGATIVE (NEGATIVE); URINE UROBILINOGEN 0.2 mg/dL (0.2-1.0)
[2024-12-10 00:08] VITALS: RESP 18
[2024-12-10] MEDS: DEXTROSE 5%-0.45% SALINE 1,000 ML IV SCH (00:09)
[2024-12-10] MEDS: levETIRAcetam 500 MG/5 ML INJECTION VIAL IVPB ONE (01:27)
[2024-12-10] MEDS ORDERED: PIPERACILLIN/TAZOB 3.375 GM 3.375 GM in DEXTROSE 5%-WATER - 50 ML IVPB SCH ×2 (02:00→04:00)
[2024-12-10] MEDS: VANCOMYCIN HCL 1,500 MG in DEXTROSE 5%-WATER - 250 ML IVPB SCH (02:27)
[2024-12-10] MEDS: PIPERACILLIN/TAZOB 3.375 GM 3.375 GM in DEXTROSE 5%-WATER - 50 ML IVPB SCH (02:52)
[2024-12-10 04:02] VITALS: BMI 31.7
[2024-12-10 07:10] LABS: ABSOLUTE IMMATURE GRANULOCYTES 0.02 x10^3/uL (0.0-0.031); BASOPHILS # 0.03 x10^3/uL (0.01-0.08); EOSINOPHIL % 0.4 % (0.7-5.8); EOSINOPHILS # 0.03 x10^3/uL (0.04-0.36); MCHC 30.4 g/dl (32.2-35.5); MEAN CELL VOLUME 94.9 fl (79.4-94.8); MEAN PLT VOLUME 11.3 fl (9.4-12.3); MONOCYTE # 0.75 x10^3/uL (0.24-0.86); MONOCYTE % 9.9 % (4.7-12.5); RDW 14.8 % (12.4-16.4)
[2024-12-10 07:33] LABS: GLUCOSE,RANDOM 120.0 mg/dL (74-106); TOT PROT 7.2 g/dl (6.4-8.2)
[2024-12-10 07:34] LABS: CO2 28.0 mmol/L (21-32)
[2024-12-10 07:38] LABS: CREATININE 0.99 mg/dL (0.55-1.3); SGOT/AST 21.0 U/L (5-34); SGPT/ALT 12.0 U/L (0-55)
[2024-12-10 07:45] LABS: ALK PHOS 97.0 U/L (40-150)
[2024-12-10] MEDS: ACETAMINOPHEN 1000 MG/100 ML BAG IVPB PRN (09:06)
[2024-12-10] MEDS ORDERED: VANCOMYCIN HCL 1,500 MG in DEXTROSE 5%-WATER - 250 ML IVPB SCH (09:30)
[2024-12-10] MEDS: INSULIN ASPART SLIDING SCALE (NOVOLOG) 1 VIAL SQ SCH ×2 (10:25→12:30)
[2024-12-10] MEDS: VANCOMYCIN PREMIX 1.5 GM 1,500 MG/300 ML BAG IVPB SCH (11:57)
[2024-12-10] MEDS: APIXABAN 5 MG TABLET PO SCH (12:04)
[2024-12-10] MEDS: INSULIN GLARGINE (LANTUS) 100 UNITS/ML UNITS SQ SCH (12:29)
[2024-12-10] MEDS: levETIRAcetam 500 MG/5 ML INJECTION VIAL IVPB SCH (13:26)
[2024-12-10] MEDS: levETIRAcetam 500 MG TABLET (FP) PO ONE (14:53)
[2024-12-10] MEDS: levETIRAcetam 500 MG TABLET (FP) PO SCH (21:47)
[2024-12-10] MEDS: ATORVASTATIN CA 40 MG TABLET (FP) PO SCH (21:47)
[2024-12-10] MEDS: ACETAMINOPHEN 325 MG TABLET (FP) PO PRN (21:48)
[2024-12-10] MEDS ORDERED: levETIRAcetam 500 MG TABLET (FP) PO SCH (22:00)
[2024-12-10] MEDS ORDERED: ATORVASTATIN CA 10 MG TABLET (FP) PO SCH (22:00)
[2024-12-11] MEDS: LOSARTAN POTASSIUM 25 MG TABLET PO SCH (10:17)
[2024-12-11 11:12] LABS: ABSOLUTE IMMATURE GRANULOCYTES 0.02 x10^3/uL (0.0-0.031); BASOPHILS # 0.02 x10^3/uL (0.01-0.08); EOSINOPHIL % 2.7 % (0.7-5.8); EOSINOPHILS # 0.16 x10^3/uL (0.04-0.36); MCHC 29.9 g/dl (32.2-35.5); MEAN CELL VOLUME 96.3 fl (79.4-94.8); MEAN PLT VOLUME 10.8 fl (9.4-12.3); MONOCYTE # 0.50 x10^3/uL (0.24-0.86); MONOCYTE % 8.4 % (4.7-12.5); RDW 14.8 % (12.4-16.4)
[2024-12-11 11:32] LABS: GLUCOSE,RANDOM 129.0 mg/dL (74-106); TOT PROT 6.9 g/dl (6.4-8.2)
[2024-12-11 11:33] LABS: CO2 27.0 mmol/L (21-32)
[2024-12-11 11:35] LABS: ALK PHOS 89.0 U/L (40-150)
[2024-12-11 11:38] LABS: CREATININE 1.03 mg/dL (0.55-1.3); SGOT/AST 19.0 U/L (5-34); SGPT/ALT 13.0 U/L (0-55)
[2024-12-11] MEDS: EMPAGLIFLOZIN (JARDIANCE) 10 MG TABLET PO SCH (13:54)
[2024-12-11 14:44] VITALS: BP 132/65; PULSE 70; TEMP 98
== END 2024-12-11 14:36 | disposition home or self-care (01) | DRG 922 ==
LOC: JER 18:10 → JERBED 21:55 → J8W 12-10 00:54
PROVIDERS: ADMIT Hospitalist; ATTEND Student in an Organized Health Care Education/Training Program
DX: T67.5XXA Heat exhaustion, unspecified, initial encounter (principal); G92.8 Other toxic encephalopathy; X58.XXXA Exposure to other specified factors, initial encounter; Y93.9 Activity, unspecified; Y92.89 Other specified places as the place of occurrence of the external cause; Y99.9 Unspecified external cause status; E10.9 Type 1 diabetes mellitus without complications; I10 Essential (primary) hypertension; R56.9 Unspecified convulsions; E78.5 Hyperlipidemia, unspecified; R55 Syncope and collapse
CPT/HCPCS: 36415; 36600; 70450-TC; 70496-TC; 70498-TC; 71045-TC-FY; 76882-TC-RT-FY; 80053; 80061; 81003; 82550; 82803; 82962; 83036; 83605; 83735; 84100; 84484; 85025; 85610; 85730; 86850; 86900; 86901; 87040; 87086; 87637-QW; 93005; 93010; 95816; 97116-GP; 97161-GP; 99285-25; Q9967